=== PATIENT | male | born 1955 | race Caucasian/White ===

== ENCOUNTER 2016-09-20 14:27 | Emergency (ER) | payer MEDICARE, MEDICAID, OTHER ==
[2016-09-20] MEDS ORDERED: Sodium Chloride 0.9% 10 ML Syringe FLUSH PRN (14:57)
[2016-09-20] MEDS ORDERED: Sodium Chloride 0.9% 1,000 ML IV ONE ×2 (14:57→16:30)
--- NOTE | 2016-09-20 15:00 | EDM.PDOC ---
ED HPI GENERAL MEDICAL PROBLEM - General Chief Complaint: Neurological Problem Stated Complaint: [facility] Time Seen by Provider: 09/20/16 14:40 Source of Information: Reports: Patient History Limitations: Reports: No limitations - History of Present Illness INITIAL COMMENTS - FREE TEXT/NARRATIVE: 61-year-old male is brought in by the ambulance service for evaluation and treatment of confusion. Patient is denying pain at this time. He states he was seen by a provider yesterday for a dental abscess. Started on clindamycin. Patient niece is present in the ER. She states she called the ambulance for him as he has been more confused than normal. He denies any fevers, chills, nausea, vomiting, malaise, chest pain, shortness of breath or abdominal pain. Patient lives at home by himself. He is a diabetic on insulin. It Is unclear if he's been taking his medications. his niece reports on several occasions he has not taken his medications. Past medical history of AK and stroke. - Related Data Allergies Allergy/AdvReac Type Severity Reaction Status Date / Time No Known Allergies Allergy Verified 09/20/16 14:32 Home Meds: Home Meds Allopurinol [Zyloprim] 100 mg PO DAILY 09/16/13 [History] Aspirin [Sofie Chewable Aspirin] 81 mg PO DAILY 09/16/13 [History] FLUoxetine HCl [Fluoxetine] 20 mg PO DAILY 09/16/13 [History] Lisinopril 10 mg PO DAILY 09/16/13 [History] Melatonin/Pyridoxine HCl (B6) [Melatonin 10 mg Tablet] 5 mg PO DAILY PRN [History] Ranitidine HCl [Zantac 75] 75 mg PO BID 09/16/13 [History] Simvastatin [Zocor] 40 mg PO QPM 09/16/13 [History] Tamsulosin [Flomax] 0.4 mg PO DAILY 09/16/13 [History] Zolpidem [Ambien] 10 mg PO BEDTIME 09/16/13 [History] metFORMIN [Glucophage XR] 500 mg PO BIDM 09/16/13 [History] traZODone 200 mg PO QPM 09/16/13 [History] Furosemide [Lasix] 40 mg PO DAILY #30 tablet 09/22/13 [Rx] Acetaminophen [Tylenol Arthritis Pain] 1,300 mg PO BID 07/17/15 [History] Ibuprofen 600 mg PO Q12H PRN 07/17/15 [History] Multivit with Min #53/FA/K/Q10 [Dekas Plus Softgel] 1 tab PO DAILY 07/17/15 [ History] tiZANidine [Zanaflex] 4 mg PO TID PRN 07/17/15 [History] Divalproex Sodium [Depakote ER] 1,000 mg PO DAILY 07/18/15 [History] Rivaroxaban [Xarelto] 20 mg PO DAILY #30 tablet 07/21/15 [Rx] Clindamycin HCl 300 mg PO TID 09/20/16 [History] Divalproex Sodium [Depakote ER] 250 mg PO DAILY 09/20/16 [History] Fluticasone. 2 sprays NASBOTH DAILY 09/20/16 [History] Gabapentin [Neurontin] 200 mg PO BID 09/20/16 [History] Insulin Glarg,Human.Rec.Analog [LantUS Solostar] 35 units SUBCUT DAILY 09/20/16 [History] oxyCODONE HCl [Roxicodone] 5 mg PO Q6H 09/20/16 [History] traZODone HCl [Trazodone HCl] 100 mg PO DAILY 09/20/16 [History] Past Medical History Cardiovascular History: Reports: AK, Stents Other Cardiovascular History: one stent Respiratory History: Reports: Sleep apnea Gastrointestinal History: Reports: Chronic diarrhea Musculoskeletal History: Reports: Back pain, chronic, Other (see below) Other Musculoskeletal History: left back fusion Neurological History: Reports: CVA Psychiatric History: Reports: Depression Endocrine/Metabolic History: Reports: Diabetes, type II - Infectious Disease History Infectious Disease History: Reports: Chicken pox, Measles - Past Surgical History Respiratory Surgical History: Reports: None GI Surgical History: Reports: Hernia repair/other Dermatological Surgical History: Reports: None Social & Family History - Family History HEENT: Reports: None Cardiac: Reports: AK, Stent, Other (see below) Other Cardiac Family History: Unsure of exact family history GI: Reports: Cholelithiasis Musculoskeletal: Reports: Gout Neurological: Reports: Alzheimers disease Endocrine/Metabolic: Reports: Diabetes, type II Oncologic: Reports: Colon - Tobacco Use Smoking Status *Q: Never Smoker Second Hand Smoke Exposure: No - Alcohol Use Days Per Week of Alcohol Use: 0 - Recreational Drug Use Recreational Drug Use: No ED ROS GENERAL - Review of Systems Review Of Systems: See Below Constitutional: Denies: fever, malaise HEENT: Reports: Dental pain (left upper dental pain) Respiratory: Denies: Shortness of Breath Cardiovascular: Denies: Chest pain GI/Abdominal: Denies: Abdominal pain, Nausea, Vomiting Neurological: Reports: Confusion. Denies: Headache - Physical Exam Exam: See Below Exam Limited By: No limitations General Appearance: alert, WD/WN, no apparent distress, obese Throat/Mouth: Normal inspection, Normal lips, Normal voice, No airway compromise , Other (poor dentition with multiple carries; dental abscess to #13 and 14) Neck: normal inspection Respiratory/Chest: no respiratory distress, lungs clear, normal breath sounds Cardiovascular: normal peripheral pulses, regular rate, rhythm, no murmur Neuro Exam (Abbreviated): alert, confused (appropriately reports month; reported year as 2009 to staff electrical engineer; corrently identifies date of ) Extremities: pedal edema (2+ bilaterally) Psychiatric: normal affect, normal mood Skin Exam: Warm, Dry, Normal color EKG INTERPRETATION EKG Date: 09/20/16 Time: 15:05 Rhythm: NSR Rate (beats/min): 79 [place]: normal P-wave: present QRS: normal ST-T: normal QT: normal EKG Interpretation Comments: NSR at 79 bpm. No acute changes. Reviewd by myself and Dr. Garvey. Course - Vital Signs Last Recorded V/S: Last Vital Signs Temp 37.4 C 09/20/16 20:00 Pulse 92 09/20/16 20:00 Resp 16 09/20/16 20:00 BP 127/63 09/20/16 20:00 Pulse Ox 95 09/20/16 21:46 - Orders/Labs/Meds Orders: Active Orders 24 hr Category Date Time Status Blood Glucose Check, Bedside [RC] ONETIME Care 09/20/16 14:54 Active Cardiac Monitoring [RC] . DIRECTED Care 09/20/16 14:54 Active EKG Documentation Completion [RC] STAT Care 09/20/16 14:54 Active Cotto Catheter Insertion [Insert Urinary Catheter] [OM. Care 09/20/16 17:00 Ordered PC] Stat Oxygen Therapy [RC] ASDIRECTED Care 09/20/16 21:46 Active Peripheral IV Care [RC] . DIRECTED Care 09/20/16 14:57 Active Urinary Catheter Assessment [RC] ASDIRECTED Care 09/20/16 17:30 Active CULTURE BLOOD [BC] Stat Lab 09/20/16 15:20 Received CULTURE BLOOD [BC] Stat Lab 09/20/16 15:32 Received CULTURE URINE [RM] Stat Lab 09/20/16 17:00 Received Sodium Chloride 0.9% [Saline Flush] Med 09/20/16 14:57 Active 10 ml FLUSH ASDIRECTED PRN Blood Culture x2 Reflex Set [OM.PC] Stat Oth 09/20/16 14:54 Ordered Peripheral IV Insertion Adult [OM.PC] Routine Oth 09/20/16 14:57 Ordered Medication Orders Sodium Chloride (Saline Flush) 10 ml FLUSH ASDIRECTED PRN PRN Reason: Keep Vein Open Last Admin: 09/20/16 15:11 Dose: 10 ml Labs: Laboratory Tests 09/20/16 09/20/16 09/20/16 Range/Units 15:32 15:32 15:32 WBC 8.06 (4.23-9.07) K/mm3 RBC 4.24 L (4.63-6.08) M/mm3 Hgb 13.2 L (13.7-17.5) gm/L Hct 40.8 (40.1-51.0) % MCV 96.2 H (79.0-92.2) fl MCH 31.1 (25.7-32.2) pg MCHC 32.4 (32.2-35.5) g/dl RDW Std Deviation 46.3 H (35.1-43.9) fL Plt Count 214 (163-337) K/mm3 MPV 10.9 (9.4-12.3) fl Neutrophils % (Manual) 66 H (40-60) % Band Neutrophils % 0 (0-10) % Lymphocytes % (Manual) 28 (20-40) % Atypical Lymphs % 0 % Monocytes % (Manual) 4 (2-10) % Eosinophils % (Manual) 2 (0.8-7.0) % Basophils % (Manual) 0 L (0.2-1.2) Platelet Estimate Adequate RBC Morph Comment Normal Sodium 134 L (136-145) mEq/L Potassium 4.4 (3.5-5.1) mEq/L Chloride 95 L (98-107) mEq/L Carbon Dioxide 27 (21-32) mEq/L Anion Gap 16.4 H (5-15) BUN 54 H (7-18) mg/dL Creatinine 6.0 H (0.7-1.3) mg/dL Est Cr Clr Drug Dosing 12.09 mL/min Estimated GFR (MDRD) 10 (>60) mL/min BUN/Creatinine Ratio 9.0 L (14-18) Glucose 177 H (80-115) mg/dL Lactic Acid 2.5 H (0.4-2.0) mmol/L Calcium 8.7 (8.5-10.1) mg/dL Magnesium (1.8-2.4) mg/dl Total Bilirubin 0.2 (0.2-1.0) mg/dL AST 15 (15-37) U/L ALT 18 (16-63) U/L Alkaline Phosphatase 83 (46-116) U/L CK-MB (CK-2) 2.0 (0-3.6) ng/ml Troponin I < 0.017 (0.00-0.056) ng/mL C-Reactive Protein 11.5 H* (<1.0) mg/dL B-Natriuretic Peptide (0-100) pg/mL Total Protein 7.0 (6.4-8.2) g/dl Albumin 3.2 L (3.4-5.0) g/dl Globulin 3.8 gm/dL Albumin/Globulin Ratio 0.8 L (1-2) Urine Color (Yellow) Urine Appearance (Clear) Urine pH (5.0-8.0) Ur Specific [place] (1.005-1.030) Urine Protein (Negative) Urine Glucose (UA) (Negative) Urine Ketones (Negative) Urine Occult Blood (Negative) Urine Nitrite (Negative) Urine Bilirubin (Negative) Urine Urobilinogen (0.2-1.0) Ur Leukocyte Esterase (Negative) Urine RBC (0-5) /hpf Urine WBC (0-5) /hpf Ur Epithelial Cells Ur Squamous Epith Cells (0-5) /hpf Urine Bacteria (FEW) /hpf Urine Mucus (FEW) /hpf Urine Opiates Screen (NEGATIVE) Ur Buprenorphine Scrn (NEGATIVE) Ur Oxycodone Screen (NEGATIVE) Urine Methadone Screen (NEGATIVE) Ur Propoxyphene Screen (NEGATIVE) Ur Barbiturates Screen (NEGATIVE) Ur Tricyclics Screen (NEGATIVE) Ur Phencyclidine Scrn (NEGATIVE) Ur Amphetamine Screen (NEGATIVE) U Methamphetamines Scrn (NEGATIVE) U Benzodiazepines Scrn (NEGATIVE) U Cocaine Metab Screen (NEGATIVE) U Marijuana (THC) Screen (NEGATIVE) Ethyl Alcohol (0.00) gm% 09/20/16 09/20/16 09/20/16 Range/Units 15:32 15:32 17:00 WBC (4.23-9.07) K/mm3 RBC (4.63-6.08) M/mm3 Hgb (13.7-17.5) gm/L Hct (40.1-51.0) % MCV (79.0-92.2) fl MCH (25.7-32.2) pg MCHC (32.2-35.5) g/dl RDW Std Deviation (35.1-43.9) fL Plt Count (163-337) K/mm3 MPV (9.4-12.3) fl Neutrophils % (Manual) (40-60) % Band Neutrophils % (0-10) % Lymphocytes % (Manual) (20-40) % Atypical Lymphs % % Monocytes % (Manual) (2-10) % Eosinophils % (Manual) (0.8-7.0) % Basophils % (Manual) (0.2-1.2) Platelet Estimate RBC Morph Comment Sodium (136-145) mEq/L Potassium (3.5-5.1) mEq/L Chloride (98-107) mEq/L Carbon Dioxide (21-32) mEq/L Anion Gap (5-15) BUN (7-18) mg/dL Creatinine (0.7-1.3) mg/dL Est Cr Clr Drug Dosing mL/min Estimated GFR (MDRD) (>60) mL/min BUN/Creatinine Ratio (14-18) Glucose (80-115) mg/dL Lactic Acid (0.4-2.0) mmol/L Calcium (8.5-10.1) mg/dL Magnesium 2.1 (1.8-2.4) mg/dl Total Bilirubin (0.2-1.0) mg/dL AST (15-37) U/L ALT (16-63) U/L Alkaline Phosphatase (46-116) U/L CK-MB (CK-2) (0-3.6) ng/ml Troponin I (0.00-0.056) ng/mL C-Reactive Protein (<1.0) mg/dL B-Natriuretic Peptide < 15 (0-100) pg/mL Total Protein (6.4-8.2) g/dl Albumin (3.4-5.0) g/dl Globulin gm/dL Albumin/Globulin Ratio (1-2) Urine Color Yellow (Yellow) Urine Appearance Slt cloudy H (Clear) Urine pH 5.0 (5.0-8.0) Ur Specific [place] 1.025 (1.005-1.030) Urine Protein 1+ H (Negative) Urine Glucose (UA) Negative (Negative) Urine Ketones Negative (Negative) Urine Occult Blood Negative (Negative) Urine Nitrite Negative (Negative) Urine Bilirubin 1+ H (Negative) Urine Urobilinogen 0.2 (0.2-1.0) Ur Leukocyte Esterase Negative (Negative) Urine RBC 0-5 (0-5) /hpf Urine WBC 0-5 (0-5) /hpf Ur Epithelial Cells Not Reportable Ur Squamous Epith Cells 0-5 (0-5) /hpf Urine Bacteria Few (FEW) /hpf Urine Mucus Moderate H (FEW) /hpf Urine Opiates Screen (NEGATIVE) Ur Buprenorphine Scrn (NEGATIVE) Ur Oxycodone Screen (NEGATIVE) Urine Methadone Screen (NEGATIVE) Ur Propoxyphene Screen (NEGATIVE) Ur Barbiturates Screen (NEGATIVE) Ur Tricyclics Screen (NEGATIVE) Ur Phencyclidine Scrn (NEGATIVE) Ur Amphetamine Screen (NEGATIVE) U Methamphetamines Scrn (NEGATIVE) U Benzodiazepines Scrn (NEGATIVE) U Cocaine Metab Screen (NEGATIVE) U Marijuana (THC) Screen (NEGATIVE) Ethyl Alcohol 0.00 (0.00) gm% 09/20/16 Range/Units 17:00 WBC (4.23-9.07) K/mm3 RBC (4.63-6.08) M/mm3 Hgb (13.7-17.5) gm/L Hct (40.1-51.0) % MCV (79.0-92.2) fl MCH (25.7-32.2) pg MCHC (32.2-35.5) g/dl RDW Std Deviation (35.1-43.9) fL Plt Count (163-337) K/mm3 MPV (9.4-12.3) fl Neutrophils % (Manual) (40-60) % Band Neutrophils % (0-10) % Lymphocytes % (Manual) (20-40) % Atypical Lymphs % % Monocytes % (Manual) (2-10) % Eosinophils % (Manual) (0.8-7.0) % Basophils % (Manual) (0.2-1.2) Platelet Estimate RBC Morph Comment Sodium (136-145) mEq/L Potassium (3.5-5.1) mEq/L Chloride (98-107) mEq/L Carbon Dioxide (21-32) mEq/L Anion Gap (5-15) BUN (7-18) mg/dL Creatinine (0.7-1.3) mg/dL Est Cr Clr Drug Dosing mL/min Estimated GFR (MDRD) (>60) mL/min BUN/Creatinine Ratio (14-18) Glucose (80-115) mg/dL Lactic Acid (0.4-2.0) mmol/L Calcium (8.5-10.1) mg/dL Magnesium (1.8-2.4) mg/dl Total Bilirubin (0.2-1.0) mg/dL AST (15-37) U/L ALT (16-63) U/L Alkaline Phosphatase (46-116) U/L CK-MB (CK-2) (0-3.6) ng/ml Troponin I (0.00-0.056) ng/mL C-Reactive Protein (<1.0) mg/dL B-Natriuretic Peptide (0-100) pg/mL Total Protein (6.4-8.2) g/dl Albumin (3.4-5.0) g/dl Globulin gm/dL Albumin/Globulin Ratio (1-2) Urine Color (Yellow) Urine Appearance (Clear) Urine pH (5.0-8.0) Ur Specific [place] (1.005-1.030) Urine Protein (Negative) Urine Glucose (UA) (Negative) Urine Ketones (Negative) Urine Occult Blood (Negative) Urine Nitrite (Negative) Urine Bilirubin (Negative) Urine Urobilinogen (0.2-1.0) Ur Leukocyte Esterase (Negative) Urine RBC (0-5) /hpf Urine WBC (0-5) /hpf Ur Epithelial Cells Ur Squamous Epith Cells (0-5) /hpf Urine Bacteria (FEW) /hpf Urine Mucus (FEW) /hpf Urine Opiates Screen Negative (NEGATIVE) Ur Buprenorphine Scrn Negative (NEGATIVE) Ur Oxycodone Screen Presumptive positive H (NEGATIVE) Urine Methadone Screen Negative (NEGATIVE) Ur Propoxyphene Screen Negative (NEGATIVE) Ur Barbiturates Screen Negative (NEGATIVE) Ur Tricyclics Screen Presumptive positive H (NEGATIVE) Ur Phencyclidine Scrn Negative (NEGATIVE) Ur Amphetamine Screen Negative (NEGATIVE) U Methamphetamines Scrn Presumptive positive H (NEGATIVE) U Benzodiazepines Scrn Negative (NEGATIVE) U Cocaine Metab Screen Negative (NEGATIVE) U Marijuana (THC) Screen Negative (NEGATIVE) Ethyl Alcohol (0.00) gm% Meds: Medications Generic Name Dose Route Start Last Admin Trade Name Freq PRN Reason Stop Dose Admin Sodium Chloride 10 ml 09/20/16 14:57 09/20/16 15:11 Saline Flush FLUSH 10 ml ASDIRECTED PRN Administration Keep Vein Open Discontinued Medications Generic Name Dose Route Start Last Admin Trade Name Freq PRN Reason Stop Dose Admin Sodium Chloride 1,000 mls @ 999 mls/hr 09/20/16 14:57 09/20/16 15:08 Normal Saline IV 09/20/16 15:57 999 mls/hr ONETIME ONE Administration Sodium Chloride 1,000 mls @ 999 mls/hr 09/20/16 16:30 09/20/16 16:52 Normal Saline IV 09/20/16 17:30 999 mls/hr ONETIME ONE Administration Cefepime HCl 1 gm/ Premix 50 mls @ 100 mls/hr 09/20/16 17:19 09/20/16 17:34 IV 09/20/16 17:48 100 mls/hr ONETIME ONE Administration Oxycodone/Acetaminophen 1 tab 09/20/16 18:36 09/20/16 19:47 Percocet 325-5 Mg PO 09/20/16 18:37 1 tab ONETIME ONE Administration - Radiology Interpretation Free Text/Narrative:: chest [address] Cheng: 1. Nothing acute is identified on portable chest x-ray. Ct of the head impression per Dr. Cheng: 1. incidental findings. No acute intracranial abnormality is identified on noncontrast head Ct study. CT of the max. face without contrast impression per Dr. Cheng : 1. Numerous dental caries appear to be present. 2. Old nasal bone fracture. 3. Mild chronic- appearing sinusitis with both maxillary sinuses . 4. Nothing acute is appreciated on Ct study of the facial bones. 5. Small metallix foreign body within the anterior chin. - Re-Assessments/Exams Free Text/Narrative Re-Assessment/Exam: 09/20/16 17:01 Labs have returned. Blood cell count is 8.06, hgb is 13.2 platelets are 214. Sodium is 134, potassium is 4.4 chloride is 95. Anion gap is 16.4. Creatinine is elevated at 6.0. Review of chart and records from [place] showed that his creatinine normally around 1.0. Lactic acid is elevated 2.5. Glucose is 177. CK-MB is within normal limits at 2.0. Troponin is within normal limits at less than 0.0017. CRP is elevated at 11.5. BNP is negative at less than 15 I reviewed the lab results with the patient and his family. I feel that given his creatinine of 6.0 he is too ill to go home as he is in acute renal failure. Patient is currently in CT. CT of the max/face was obtained without contrast due to high creatinine. 09/20/16 19:[address] Alvarado, our hospitalist telephone exchange operator. She asked that I talk with [facility] regarding this patient. I spoke with Norbert Alston. Dr. Whelan accepted the patient. Plan is to send by ground ambulance. 09/20/16 21:27 Patient's drug screen has returned back positive with oxycodone, tricyclics and methamphetamine. He is negative for alcohol. Mag is normal at 2.1 After exhausting all options were unable to send the patient back on. We will send the patient by air. Departure - Departure Time of Disposition: 21:40 Disposition: DC/Tfer to Acute Hospital 02 Condition: serious Clinical Impression: Acute renal failure, Confusion - Discharge Information Forms: ED Department Discharge Additional Instructions: Patient is to go by air as no ground ambulances are available for transfer. Dr. Whelan at [facility] in [place] accepting.g - My Orders Last 24 Hours: My Active Orders 09/20/16 14:54 Blood Glucose Check, Bedside [] ONETIME Cardiac Monitoring [] . DIRECTED EKG Documentation Completion [RC] STAT Blood Culture x2 Reflex Set [OM.PC] Stat 09/20/16 14:57 Peripheral IV Care [RC] . DIRECTED Sodium Chloride 0.9% [Saline Flush] 10 ml FLUSH ASDIRECTED PRN Peripheral IV Insertion Adult [OM.PC] Routine 09/20/16 15:20 CULTURE BLOOD [BC] Stat 09/20/16 15:32 CULTURE BLOOD [BC] Stat 09/20/16 17:00 Cotto Catheter Insertion [Insert Urinary Catheter] [OM.PC] Stat CULTURE URINE [RM] Stat 09/20/16 17:30 Urinary Catheter Assessment [RC] ASDIRECTED 09/20/16 21:46 Oxygen Therapy [RC] ASDIRECTED - Assessment/Plan Last 24 Hours: My Active Orders 09/20/16 14:54 Blood Glucose Check, Bedside [RC] ONETIME Cardiac Monitoring [RC] . DIRECTED EKG Documentation Completion [RC] STAT Blood Culture x2 Reflex Set [OM.PC] Stat 09/20/16 14:57 Peripheral IV Care [RC] . DIRECTED Sodium Chloride 0.9% [Saline Flush] 10 ml FLUSH ASDIRECTED PRN Peripheral IV Insertion Adult [OM.PC] Routine 09/20/16 15:20 CULTURE BLOOD [BC] Stat 09/20/16 15:32 CULTURE BLOOD [BC] Stat 09/20/16 17:00 Cotto Catheter Insertion [Insert Urinary Catheter] [OM.PC] Stat CULTURE URINE [RM] Stat 09/20/16 17:30 Urinary Catheter Assessment [RC] ASDIRECTED 09/20/16 21:46 Oxygen Therapy [RC] ASDIRECTED
--- NOTE | 2016-09-20 15:45 | CR ---
Chest: Portable view of the chest was obtained. Comparison: Previous chest x-ray of 07/19/15. Heart size and mediastinum are within normal limits for portable technique. Lungs are clear with no acute infiltrates. Bony structures are grossly intact. Impression: 1. Nothing acute is identified on portable chest x-ray. Diagnostic code #1
--- NOTE | 2016-09-20 16:28 | CT ---
Head CT Technique: Multiple axial sections through the brain were obtained. Intravenous contrast was not utilized. Comparison: No previous intracranial imaging. Findings: Ventricles along with basal cisterns and sulci over the convexities are within normal limits for the patient's age. No abnormal parenchymal densities are seen. No evidence of intracranial hemorrhage. No midline shift or mass effect is seen. Bone window settings were reviewed which shows mild mucosal thickening within the maxillary sinuses worse on the left side which is likely chronic. Minimal mucosal thickening is noted within the right mastoid sinus which is likely incidental. No acute calvarial abnormality is seen. Old nasal bone fracture is incidentally is noted. Impression: 1. Incidental findings. No acute intracranial abnormality is identified on noncontrast head CT study. Diagnostic code #1
[2016-09-20] MEDS ORDERED: Cefepime 1 GM in Premix Bag 1 BAG IV ONE (17:19)
--- NOTE | 2016-09-20 17:30 | CT ---
CT facial bones Technique: Multiple axial sections through the facial bones were obtained. Reconstructed coronal and sagittal images were obtained. Findings: Small metallic foreign body projected within the chin measuring about 1.5 mm. There appears to be dental caries within the molars on the left side within the maxilla. Additional dental caries appears to be present within molars within the maxilla on the opposite side. Old nasal bone fracture is seen. Mucosal thickening is noted within the maxillary sinuses which is felt to be chronic. No acute fracture is seen within the facial bones. Right and left globes are symmetric. No soft tissue swelling is seen. Degenerative change is partially seen within the cervical spine. Impression: 1. Numerous dental caries appear to be present. 2. Old nasal bone fracture. 3. Mild chronic-appearing sinusitis within both maxillary sinuses. 4. Nothing acute is appreciated on CT study of the facial bones. 5. Small metallic foreign body within the anterior chin. Diagnostic code #3
[2016-09-20] MEDS ORDERED: Acetaminophen/oxyCODONE 325-5 MG Tab PO ONE (18:36)
[2016-09-20 22:20] VITALS: BP 127/63
== END 2016-09-20 22:00 ==
LOC: JD.ED 14:27
DX: N17.9 Acute kidney failure, unspecified (principal); R41.0 Disorientation, unspecified; G47.30 Sleep apnea, unspecified; F32.9 Major depressive disorder, single episode, unspecified; E11.9 Type 2 diabetes mellitus without complications; Z79.4 Long term (current) use of insulin; Z86.73 Personal history of transient ischemic attack (TIA), and cerebral infarction without residual deficits; Z98.890 Other specified postprocedural states; Z79.899 Other long term (current) drug therapy
CPT/HCPCS: 36415; 70450; 70486; 71010; 80053; 80306; 81001; 82553; 82962; 83605; 83735; 83880; 84484; 85025; 86140; 87040; 87086; 93005; 96361; 96365; 99285; A9270; G0480; J0692; J7040; J7050; P9612; 99284

== ENCOUNTER 2016-10-16 08:13 | Emergency (ER) | payer MEDICARE, MEDICAID ==
--- NOTE | 2016-10-16 08:51 | EDM.PDOC ---
ED HPI GENERAL MEDICAL PROBLEM - General Chief Complaint: Trauma Stated Complaint: RIB/BACK PAIN FROM Time Seen by Provider: 10/16/16 08:36 Source of Information: Reports: Patient History Limitations: Reports: No Limitations - History of Present Illness INITIAL COMMENTS - FREE TEXT/NARRATIVE: 61-year-old male presents the ED after slipping and falling in his kitchen floor this morning. He was fixing Washers in the bathroom but found note that the valve did not hold her work below the fossa. Therefore the water sprayed all over the floor and was running out in the hallway. He went to the bench towels from the kitchen about his way back to the bathroom slipped on the wet floor landing hard on his right mid and lateral back. Not the wind out of him. He hit the back of his head on the oven door but feels that no injury in his neck or head. Injury occurred about 6 clock this morning. Has pleuritic pain with deep inspiration. Localizes pain to his right lower posterolateral ribs. Denies pain in his lower back this any worse than it was prior. Onset: Today Onset Date: 10/16/16 Onset Time: 06:00 Duration: Hour(s): Location: Reports: Chest (Posterior lateral right chest) Quality: Reports: Ache, Sharp, Stabbing, Other (Pleuritic pain with deep inspiration.) Severity: Moderate Improves with: Reports: Rest Worsens with: Reports: Other, Movement Context: Reports: Trauma. Denies: Activity (Deep breathing or coughing.), Exercise, Lifting, Sick Contact Associated Symptoms: Reports: No Other Symptoms Treatments HOME DEPOT REP: Reports: Other (see below) Right Chest Pain Score (Numeric/FACES): 10 - Related Data Allergies Allergy/AdvReac Type Severity Reaction Status Date / Time No Known Allergies Allergy Verified 10/16/16 09:28 Home Meds: Home Meds Allopurinol [Zyloprim] 100 mg PO DAILY 09/16/13 [History] Aspirin [Sofie Chewable Aspirin] 81 mg PO DAILY 09/16/13 [History] FLUoxetine HCl [Fluoxetine] 20 mg PO DAILY 09/16/13 [History] Lisinopril 10 mg PO DAILY 09/16/13 [History] Melatonin/Pyridoxine HCl (B6) [Melatonin 10 mg Tablet] 5 mg PO DAILY PRN [History] Ranitidine HCl [Zantac 75] 75 mg PO BID 09/16/13 [History] Simvastatin [Zocor] 40 mg PO QPM 09/16/13 [History] Tamsulosin [Flomax] 0.4 mg PO DAILY 09/16/13 [History] Zolpidem [Ambien] 10 mg PO BEDTIME 09/16/13 [History] metFORMIN [Glucophage XR] 500 mg PO BIDM 09/16/13 [History] traZODone 200 mg PO QPM 09/16/13 [History] Furosemide [Lasix] 40 mg PO DAILY #30 tablet 09/22/13 [Rx] Acetaminophen [Tylenol Arthritis Pain] 1,300 mg PO BID 07/17/15 [History] Ibuprofen 600 mg PO Q12H PRN 07/17/15 [History] Multivit with Min #53/FA/K/Q10 [Dekas Plus Softgel] 1 tab PO DAILY 07/17/15 [ History] tiZANidine [Zanaflex] 4 mg PO TID PRN 07/17/15 [History] Divalproex Sodium [Depakote ER] 1,000 mg PO DAILY 07/18/15 [History] Rivaroxaban [Xarelto] 20 mg PO DAILY #30 tablet 07/21/15 [Rx] Clindamycin HCl 300 mg PO TID 09/20/16 [History] Divalproex Sodium [Depakote ER] 250 mg PO DAILY 09/20/16 [History] Fluticasone. 2 sprays NASBOTH DAILY 09/20/16 [History] Gabapentin [Neurontin] 200 mg PO BID 09/20/16 [History] Insulin Glarg,Human.Rec.Analog [LantUS Solostar] 35 units SUBCUT DAILY 09/20/16 [History] oxyCODONE HCl [Roxicodone] 5 mg PO Q6H 09/20/16 [History] traZODone HCl [Trazodone HCl] 100 mg PO DAILY 09/20/16 [History] oxyCODONE HCl/Acetaminophen [Percocet 5-325 mg Tablet] 1 - 2 each PO Q4H PRN # 30 tablet 10/16/16 [Rx] Past Medical History Cardiovascular History: Reports: [place], Stents Other Cardiovascular History: one stent Respiratory History: Reports: Sleep Apnea Gastrointestinal History: Reports: Chronic Diarrhea Musculoskeletal History: Reports: Back Pain, Chronic, Other (See Below) Other Musculoskeletal History: left back fusion Neurological History: Reports: CVA Psychiatric History: Reports: Depression Endocrine/Metabolic History: Reports: Diabetes, Type II - Infectious Disease History Infectious Disease History: Reports: Chicken Pox, Measles - Past Surgical History GI Surgical History: Reports: Hernia Repair/Other Neurological Surgical History: Reports: Spinal Fusion Musculoskeletal Surgical History: Reports: Other (See Below) Social & Family History - Family History HEENT: Reports: None Cardiac: Reports: [place], Stent, Other (See Below) Other Cardiac Family History: Unsure of exact family history GI: Reports: Cholelithiasis Musculoskeletal: Reports: Gout Neurological: Reports: Alzheimers Disease Endocrine/Metabolic: Reports: Diabetes, type II Oncologic: Reports: Colon - Tobacco Use Smoking Status *Q: Never Smoker Second Hand Smoke Exposure: No - Caffeine Use Caffeine Use: Reports: Soda - Alcohol Use Days Per Week of Alcohol Use: 0 - Recreational Drug Use Recreational Drug Use: No - Living Situation & Occupation Living situation: Reports: Single Occupation: Disabled Review of Systems - Review of Systems Review Of Systems: See Below Constitutional: Reports: No Symptoms Eyes: Reports: No Symptoms Ears: Reports: No Symptoms Nose: Reports: No Symptoms Mouth/Throat: Reports: No Symptoms Respiratory: Denies: Shortness of Breath, Wheezing, Pleuritic Chest Pain Cardiovascular: Reports: No Symptoms GI/Abdominal: Reports: No Symptoms. Denies: Abdominal Pain, Bloody Stool Musculoskeletal: Reports: Back Pain (Chronic low back pain) Skin: Reports: No Symptoms Neurological: Reports: No Symptoms Psychiatric: Reports: No Symptoms ED EXAM, GENERAL - Physical Exam Exam: See Below Exam Limited By: No Limitations General Appearance: Alert, WD/WN, Mild Distress Throat/Mouth: Normal Inspection, Normal Lips, Normal Teeth, Normal Oropharynx, Other Head: Atraumatic, Normocephalic (Did not bite his tongue.), Other Neck: Normal Inspection, Supple (A palpable hematomas or pain and occipital scalp.), Non-Tender, Full Range of Motion. No: Lymphadenopathy (L), Lymphadenopathy (R) Respiratory/Chest: Lungs Clear, Chest Non-Tender, Respiratory Distress (Mild tachypnea at rest. Splinting respirations on the), Decreased Breath Sounds, Splinting ( right side. right ), Other (Pain localized to the posterior lateral right chest from ribs 9-12 particularly tender palpation. No subcutaneous emphysema detected. Pain is adjacent to the transverse processes as well he may have fractured in this area as well.) Cardiovascular: Normal Peripheral Pulses, Regular Rate, Rhythm, No Gallop, No Murmur GI/Abdominal: Normal Bowel Sounds, Soft, Non-Tender, No Organomegaly, Other ( Has a fairly large 2.5 cm umbilical hernia which is asymptomatic and easily reducible. The abdomen is significantly obese.) Extremities: Normal Inspection, Normal Range of Motion, Non-Tender, No Pedal Edema, Normal Capillary Refill Neurological: Alert, Oriented, CN II-XII Intact, Normal Cognition Psychiatric: Normal Affect, Normal Mood Skin Exam: Warm, Dry, Intact, Normal Color, No Rash Course - Vital Signs Last Recorded V/S: Last Vital Signs Temp 36.4 C 10/16/16 08:45 Pulse 62 10/16/16 08:45 Resp 16 10/16/16 08:45 BP 123/67 10/16/16 08:45 Pulse Ox 90 L 10/16/16 08:45 - Radiology Interpretation Free Text/Narrative:: 61-year-old male presents to the ED with acute injury to his right posterior lateral chest wall involving ribs 9-12 in the right side. Slipped and fell on wet floor this morning in his home landing hard on his back injuring his ribs and thoracic spine area. Previous spinal surgery x2 in the lumbar spine with a laminectomy and discectomy initially which failed to control his pain and subsequent fusion of L4-5 and 6 with again and we'll relief of pain. He took an oxycodone tablet at home this morning the pain is getting worse over the last 2 hours. Hurts to take any deep breaths. Plan CT chest and CT thoracic spine to be done. - Re-Assessments/Exams Free Text/Narrative Re-Assessment/Exam: 10/16/16 09:41 CT of the thoracic spine reveals advanced degenerative changes at multiple levels in the mid and lower thoracic spine with and tear lipping quite prominently. There is associated mild degenerative disc disease. There is neural foraminal stenosis being seen within the lower cervical spine on both sides neural foramina within the thoracic spine are preserved no fracture or subluxation is identified. CT chest reveals mild clubbing trigger configuration with slight tortuosity of the thoracic aorta no fracture is identified. It will therefore be discharged home. He is a pain contract for his chronic low back pain and uses oxycodone 5-25 mg tablets. I will write a prescription for 30 further tablets that he can use over the next 7-10 days until his ribs and back to settle down. His mother is here to drive him home. Departure - Departure Time of Disposition: 09:42 Disposition: Home, Self-Care 01 Condition: fair Clinical Impression: Fall as cause of accidental injury at home as place of occurrence Qualifiers: Encounter type: initial encounter Qualified Code(s): W19.XXXA - Unspecified fall, initial encounter Contusion of rib on right side Qualifiers: Encounter type: initial encounter Qualified Code(s): S20.211A - Contusion of right front wall of thorax, initial encounter - Discharge Information Prescriptions: oxyCODONE HCl/Acetaminophen [Percocet 5-325 mg Tablet] 1 - 2 each PO Q4H PRN # 30 tablet PRN Reason: pain relief. Referrals: Abisai Lloyd MD [Primary Care Provider] - Additional Instructions: Evaluation collision today in regards to fall at home earlier this morning with blunt trauma to the right posterior lateral ribs and thoracic spine area. Chronic problems with low back pain secondary to degenerative disc disease. Examination shows point tenderness along the transverse processes of thoracic 9 1011 and 12 as well as associated rib injuries in this area. No bruising or swelling was evident on exam. CT of the ribs and chest and thoracic spine carried out revealed advanced degenerative changes in the thoracic spine with minimal disc disease. No evidence of nerve root entrapment. Interestingly do have some entrapment of the nerves exiting the cervical or neck bones. No fractures or dislocations are identified. Ribs were within normal limits. Therefore you have contused her badly bruised her ribs and her back from the fall. Expect pain to be a little worse over the next 24-48 hours and then gradually improve over the next 7-10 days. May use oxycodone 5-325 mg tablets -- one to 2 tablets every 4-6 hours as needed for pain relief. Followup with personal physician if any further problems occur.
--- NOTE | 2016-10-16 09:37 | CT ---
CT thoracic spine Technique: Multiple axial sections through the thoracic spine were obtained. Findings: Mild disc space narrowing is seen diffusely within the cervical spine. Diffuse endplate osteophytes are also seen throughout the spine. Mild degenerative apophyseal change is seen within the lower thoracic spine. There is neural foraminal stenosis being seen within the lower cervical spine on both sides. Neural foramina within the thoracic spine are preserved. No fracture or subluxation is seen. Impression: 1. Degenerative change as noted above. No acute fracture or abnormal subluxation is appreciated. Diagnostic code #2
--- NOTE | 2016-10-16 09:37 | CT ---
CT chest Technique: Multiple axial sections were obtained from above the lung apices inferiorly through the lung bases. Intravenous contrast was not utilized. Comparison: No prior chest CT, chest x-ray 09/20/16 is available. Findings: Mild atherosclerotic calcification is seen within the thoracic aorta. No aneurysm is identified. Moderate coronary artery calcification is seen. Small mediastinal lymph nodes are seen which appear within normal limits. No pericardial thickening is seen. Small portion of the visualized upper abdominal structures shows a small cortical cyst off the left kidney. No axillary adenopathy is seen. Small nodule is noted within the anterior right upper lobe measuring about 2.4 mm in size. Lungs otherwise are clear. Bone window settings were reviewed which shows no discrete rib fracture. Diffuse degenerative change is seen within the spine. No discrete fracture is identified within the thoracic spine. Reconstructed sagittal images of the sternum appear within normal limits. Impression: 1. Small nodule within the anterior right upper lung. If patient is a smoker, recommend follow-up noncontrast chest CT in one year. If patient is not a smoker, this can be ignored. 2. Other incidental findings. Nothing acute is appreciated on noncontrast chest CT. Diagnostic code #3
[2016-10-16 10:40] VITALS: BP 118/58
== END 2016-10-16 10:05 | disposition home or self-care (01) ==
LOC: JD.ED 08:13
DX: S20.211A Contusion of right front wall of thorax, initial encounter (principal); F32.9 Major depressive disorder, single episode, unspecified; E11.9 Type 2 diabetes mellitus without complications; Z86.73 Personal history of transient ischemic attack (TIA), and cerebral infarction without residual deficits; Z98.1 Arthrodesis status; I25.2 Old myocardial infarction; Z98.890 Other specified postprocedural states; Z79.82 Long term (current) use of aspirin; Z79.4 Long term (current) use of insulin; Z79.899 Other long term (current) drug therapy; W01.0XXA Fall on same level from slipping, tripping and stumbling without subsequent striking against object, initial encounter
CPT/HCPCS: 71250; 71250-26; 72128; 72128-26; 99284; 99284-25

== ENCOUNTER 2016-12-18 11:52 | Inpatient (IN) | payer MEDICARE, MEDICAID ==
[2016-12-18] MEDS ORDERED: Sodium Chloride 0.9% 10 ML Syringe FLUSH PRN (12:45)
--- NOTE | 2016-12-18 12:56 | EDM.PDOC ---
ED HPI GENERAL MEDICAL PROBLEM - General Chief Complaint: General Stated Complaint: ACCIDENTAL DRUG OVERDOSE Time Seen by Provider: 12/18/16 12:17 Source of Information: Reports: Patient History Limitations: Reports: No Limitations - History of Present Illness INITIAL COMMENTS - FREE TEXT/NARRATIVE: Patient is a 61-year-old male who presents ED with family with concerns of taking medications inappropriately. Sr. and brother are present. Patient has a history of stroke and [place] and is on disability. He lives at home by himself. Sr. states this morning she checked up on him and found that he had taking all his medications for Sunday, Sunday, and the morning meds for Sunday. Patient is quite drowsy and mildly confused. It is unsure what medications he has taken. He is on multiple sedating medications for chronic pain. They report the patient did fall with questionable loss of consciousness. He complains of left- sided chest and left upper quadrant abdominal pain. He has superficial abrasion to his left knee. Patient is also a diabetic. Blood sugar approximate one-hour prior to admission to the ED was 148. Family reports patient has had multiple episodes as such with taking medications inappropriately. Per family although the patient appears sleepy his mentation is appropriate. He is on xarelto for atrial fibrillation. PMH and current medications reviewed. - Related Data Allergies Allergy/AdvReac Type Severity Reaction Status Date / Time No Known Allergies Allergy Verified 12/18/16 12:11 Home Meds: Home Meds Allopurinol [Zyloprim] 100 mg PO DAILY 09/16/13 [History] Aspirin [Sofie Chewable Aspirin] 81 mg PO DAILY 09/16/13 [History] FLUoxetine HCl [Fluoxetine] 20 mg PO DAILY 09/16/13 [History] Ranitidine HCl [Zantac 75] 75 mg PO BID 09/16/13 [History] Simvastatin [Zocor] 40 mg PO QPM 09/16/13 [History] Tamsulosin [Flomax] 0.4 mg PO DAILY 09/16/13 [History] Zolpidem [Ambien] 5 mg PO BEDTIME PRN 09/16/13 [History] Acetaminophen [Tylenol Arthritis Pain] 1,300 mg PO BID 07/17/15 [History] Ibuprofen 600 mg PO Q12H PRN 07/17/15 [History] Multivit with Min #53/FA/K/Q10 [Dekas Plus Softgel] 1 tab PO DAILY 07/17/15 [ History] Rivaroxaban [Xarelto] 20 mg PO DAILY #30 tablet 07/21/15 [Rx] Divalproex Sodium [Depakote ER] 1,000 mg PO DAILY 09/20/16 [History] Fluticasone. 2 sprays NASBOTH DAILY 09/20/16 [History] Gabapentin [Neurontin] 200 mg PO BID 09/20/16 [History] Insulin Glarg,Human.Rec.Analog [LantUS Solostar] 35 units SUBCUT DAILY 09/20/16 [History] oxyCODONE HCl [Roxicodone] 5 mg PO Q6H 09/20/16 [History] Cyclobenzaprine [Flexeril] 10 mg PO BID PRN 12/18/16 [History] Melatonin 5 mg PO BEDTIME PRN 12/18/16 [History] Metoprolol Tartrate [Lopressor] 100 mg PO BID 12/18/16 [History] SUMAtriptan [Imitrex] 50 mg PO BID PRN 12/18/16 [History] Past Medical History Cardiovascular History: Reports: [place], Stents Other Cardiovascular History: one stent Respiratory History: Reports: Sleep Apnea Gastrointestinal History: Reports: Chronic Diarrhea Musculoskeletal History: Reports: Back Pain, Chronic, Other (See Below) Other Musculoskeletal History: left back fusion Neurological History: Reports: CVA Psychiatric History: Reports: Depression Endocrine/Metabolic History: Reports: Diabetes, Type II - Infectious Disease History Infectious Disease History: Reports: Chicken Pox, Measles - Past Surgical History GI Surgical History: Reports: Hernia Repair/Other Neurological Surgical History: Reports: Spinal Fusion Musculoskeletal Surgical History: Reports: Other (See Below) Dermatological Surgical History: Reports: None Social & Family History - Family History HEENT: Reports: None Cardiac: Reports: [place], Stent, Other (See Below) Other Cardiac Family History: Unsure of exact family history GI: Reports: Cholelithiasis Musculoskeletal: Reports: Gout Neurological: Reports: Alzheimers Disease Endocrine/Metabolic: Reports: Diabetes, type II Oncologic: Reports: Colon - Tobacco Use Smoking Status *Q: Never Smoker Second Hand Smoke Exposure: No - Caffeine Use Caffeine Use: Reports: Soda - Alcohol Use Days Per Week of Alcohol Use: 0 - Recreational Drug Use Recreational Drug Use: No - Living Situation & Occupation Living situation: Reports: Single Occupation: Disabled ED ROS GENERAL - Review of Systems Review Of Systems: See Below Constitutional: Reports: Malaise, Weakness, Fatigue. Denies: Fever, Chills, Decreased Appetite, Weight Loss Cardiovascular: Reports: Chest Pain (left lower lateral chest border). Denies: Dyspnea on Exertion, Lightheadedness, Palpitations, Syncope GI/Abdominal: Reports: Abdominal Pain (left upper quadrant). Denies: Black Stool, Bloody Stool, Constipation, Diarrhea, Decreased Appetite, Difficulty Swallowing, Distension, Flatus, Hematemesis, Hematochezia, Nausea, Vomiting : Denies: Dysuria Musculoskeletal: Reports: Back Pain (lower back pain chronic no worsening symptoms), Other (left forearm pain). Denies: Neck Pain, Shoulder Pain Skin: Reports: Other (superficial abrasion to the left knee) Neurological: Denies: Confusion, Dizziness, Headache, Numbness, Tingling, Trouble Speaking, Weakness ED EXAM, GENERAL - Physical Exam Exam: See Below Exam Limited By: No Limitations General Appearance: Alert, WD/WN, Other (mildly sedated) Eye Exam: Bilateral Eye: EOMI, Nystagmus (none found), PERRL Ears: Normal External Exam, Hearing Grossly Normal Nose: Normal Inspection Throat/Mouth: Normal Inspection, Normal Oropharynx, Normal Voice, No Airway Compromise Head: Atraumatic, Normocephalic Neck: Normal Inspection, Supple, Non-Tender, Full Range of Motion. No: Lymphadenopathy (L), Lymphadenopathy (R), Tender Lateral, Tender Midline Respiratory/Chest: No Respiratory Distress, Lungs Clear, Normal Breath Sounds, No Accessory Muscle Use, Other (pain with palpation the left lower chest. No bony abnormalities, bruising, swelling, or wounds present.) Cardiovascular: Normal Peripheral Pulses, Regular Rate, Rhythm, No Murmur ( obvious) Peripheral Pulses: 2+: Radial (L), Radial (R), Posterior Tibial (L), Posterior Tibial (R) GI/Abdominal: Normal Bowel Sounds, Soft, No Organomegaly, No Distention, Tender (left upper quadrant) Back Exam: Normal Inspection, Full Range of Motion, Vertebral Tenderness ( lumbar spine, chronic, no new changes) Extremities: Normal Inspection, Normal Range of Motion, Normal Capillary Refill , Pedal Edema (trace bilaterally lower extremities), Other (pain to the left forearm with palpation, no decreased range of motion noted, no swelling, bony abnormalities, sensory/motor deficits distally) Neurological: Alert, Oriented, Normal Cognition, No Motor/Sensory Deficits, Memory Loss Recent Events, Other (sedated and mildly confused) Psychiatric: Normal Affect, Depressed Mood Skin Exam: Warm, Dry, Intact, Normal Color Course - Vital Signs Last Recorded V/S: Last Vital Signs Temp 99.1 F 12/19/16 08:34 Pulse 96 12/19/16 09:56 Resp 16 12/19/16 08:34 BP 141/83 H 12/19/16 09:56 Pulse Ox 90 L 12/19/16 08:34 - Orders/Labs/Meds Orders: Active Orders 24 hr Category Date Time Status EKG 12 Lead [EKG Documentation Completion] [RC] STAT Care 12/18/16 12:59 Active Consult to Financial Assistant [CONS] Routine Cons 12/18/16 14:23 Active Sodium Chloride 0.9% [Saline Flush] Med 12/18/16 12:45 Active 10 ml FLUSH ASDIRECTED PRN Peripheral IV Insertion Adult [OM.PC] Stat Oth 12/18/16 12:45 Ordered Medication Orders Acetaminophen (Tylenol) 650 mg PO Q4H PRN PRN Reason: Pain (Mild 1-3)/fever Hydrocodone Bitart/Acetaminophen ([place] 325-5 Mg) 1 tab PO Q4H PRN PRN Reason: Pain (moderate 4-6) Last Admin: 12/19/16 01:49 Dose: 1 tab Albuterol/Ipratropium (Duoneb 3.0-0.5 Mg/3 Ml) 3 ml NEB Q4H PRN PRN Reason: Shortness Of Breath/wheezing Bisacodyl (Dulcolax) 5 mg PO DAILY PRN PRN Reason: Constipation Divalproex Sodium (Depakote) 1,000 mg PO DAILY [facility] Last Admin: 12/19/16 09:49 Dose: 1,000 mg Divalproex Sodium (Divalproex Sodium) 250 mg PO DAILY [facility] Last Admin: 12/19/16 09:48 Dose: 250 mg Docusate Sodium (Colace) 100 mg PO BID PRN PRN Reason: Constipation Famotidine (Pepcid) 20 mg PO BEDTIME [facility] Flunisolide (Nasalide Nasal [place]) 0 ml NASBOTH Q12H [facility] Fluoxetine HCl (Prozac) 20 mg PO DAILY [facility] Last Admin: 12/19/16 09:48 Dose: 20 mg Gabapentin (Neurontin) 200 mg PO BID [facility] Last Admin: 12/19/16 09:49 Dose: 200 mg Hydromorphone HCl (Dilaudid) 0.25 mg IVPUSH Q2H PRN PRN Reason: Pain (severe 7-10) Promethazine HCl 12.5 mg/ (Sodium Chloride) 50.5 mls @ 100 mls/hr IV Q6H PRN PRN Reason: Nausea/Vomiting Insulin Detemir (Levemir) 0 unit SUBCUT BID [facility] Lorazepam (Ativan) 1 mg IV Q6H PRN PRN Reason: Anxiety Stop: 12/21/16 23:59 Metoprolol Tartrate (Lopressor) 100 mg PO BID [facility] Last Admin: 12/19/16 09:56 Dose: 100 mg Multivitamins (Thera) 1 each PO DAILY [facility] Last Admin: 12/19/16 09:49 Dose: 1 each Ondansetron HCl (Zofran) 4 mg IV Q6H PRN PRN Reason: Nausea/Vomiting Oxycodone HCl (Oxycodone) 5 mg PO Q6H [facility] Last Admin: 12/19/16 09:46 Dose: 5 mg Admin: 12/19/16 03:51 Dose: 5 mg Admin: 12/18/16 22:14 Dose: 5 mg Melatonin [Melatonin (] 5 Mg) 0 each PO BEDTIME PRN PRN Reason: Insomnia Polyethylene Glycol (Miralax) 17 gm PO DAILY PRN PRN Reason: Constipation Senna/Docusate Sodium (Senna Plus) 1 tab PO BID PRN PRN Reason: Constipation Simvastatin (Zocor) 40 mg PO QPM [facility] Sodium Chloride (Saline Flush) 10 ml FLUSH ASDIRECTED PRN PRN Reason: Keep Vein Open Last Admin: 12/18/16 13:39 Dose: 10 ml Sumatriptan Succinate (Imitrex) 50 mg PO BID PRN PRN Reason: Headache Tamsulosin HCl (Flomax) 0.4 mg PO DAILY [facility] Last Admin: 12/19/16 09:48 Dose: 0.4 mg Temazepam (Restoril) 15 mg PO BEDTIME PRN PRN Reason: Sleep Zolpidem Tartrate (Ambien) 5 mg PO BEDTIME PRN PRN Reason: Insomnia Labs: Laboratory Tests 12/18/16 12/18/16 12/18/16 Range/Units 12:22 12:55 12:55 WBC (4.23-9.07) K/mm3 RBC (4.63-6.08) M/mm3 Hgb (13.7-17.5) gm/L Hct (40.1-51.0) % MCV (79.0-92.2) fl MCH (25.7-32.2) pg MCHC (32.2-35.5) g/dl RDW Std Deviation (35.1-43.9) fL Plt Count (163-337) K/mm3 MPV (9.4-12.3) fl Neut % (Auto) (34.0-67.9) % Lymph % (Auto) (21.8-53.1) % [place] % (Auto) (5.3-12.2) % Eos % (Auto) (0.8-7.0) Baso % (Auto) (0.1-1.2) % Neut # (Auto) (1.78-5.38) K/mm3 Lymph # (Auto) (1.32-3.57) K/mm3 [place] # (Auto) (0.30-0.82) K/mm3 Eos # (Auto) (0.04-0.54) K/mm3 Baso # (Auto) (0.01-0.08) K/mm3 PT (8.0-13.0) SECONDS INR APTT (22-36) SECONDS Sodium (136-145) mEq/L Potassium (3.5-5.1) mEq/L Chloride (98-107) mEq/L Carbon Dioxide (21-32) mEq/L Anion Gap (5-15) BUN (7-18) mg/dL Creatinine (0.7-1.3) mg/dL Est Cr Clr Drug Dosing mL/min Estimated GFR (MDRD) (>60) mL/min BUN/Creatinine Ratio (14-18) Glucose (80-115) mg/dL POC Glucose 148 H (80-115) mg/dL Calcium (8.5-10.1) mg/dL Total Bilirubin (0.2-1.0) mg/dL AST (15-37) U/L ALT (16-63) U/L Alkaline Phosphatase (46-116) U/L Troponin I (0.00-0.056) ng/mL Total Protein (6.4-8.2) g/dl Albumin (3.4-5.0) g/dl Globulin gm/dL Albumin/Globulin Ratio (1-2) Lipase (73-393) U/L TSH 3rd Generation (0.358-3.74) uIU/mL Urine Color Yellow (Yellow) Urine Appearance Clear (Clear) Urine pH 6.0 (5.0-8.0) Ur Specific [place] 1.015 (1.005-1.030) Urine Protein Negative (Negative) Urine Glucose (UA) Negative (Negative) Urine Ketones Negative (Negative) Urine Occult Blood Negative (Negative) Urine Nitrite Negative (Negative) Urine Bilirubin Negative (Negative) Urine Urobilinogen 0.2 (0.2-1.0) Ur Leukocyte Esterase Negative (Negative) Urine RBC Not seen (0-5) /hpf Urine WBC 0-5 (0-5) /hpf Ur Epithelial Cells 0-5 (0-5) /hpf Urine Bacteria Not seen (FEW) /hpf Urine Mucus Not seen (FEW) /hpf Urine Opiates Screen Negative (NEGATIVE) Ur Buprenorphine Scrn Negative (NEGATIVE) Ur Oxycodone Screen Negative (NEGATIVE) Urine Methadone Screen Negative (NEGATIVE) Ur Propoxyphene Screen Negative (NEGATIVE) Ur Barbiturates Screen Negative (NEGATIVE) Ur Tricyclics Screen Negative (NEGATIVE) Ur Phencyclidine Scrn Negative (NEGATIVE) Ur Amphetamine Screen Negative (NEGATIVE) U Methamphetamines Scrn Negative (NEGATIVE) U Benzodiazepines Scrn Negative (NEGATIVE) U Cocaine Metab Screen Negative (NEGATIVE) U Marijuana (THC) Screen Negative (NEGATIVE) 12/18/16 12/18/16 12/18/16 Range/Units 13:35 13:35 13:35 WBC 7.18 (4.23-9.07) K/mm3 RBC 4.63 (4.63-6.08) M/mm3 Hgb 14.4 (13.7-17.5) gm/L Hct 44.3 (40.1-51.0) % MCV 95.7 H (79.0-92.2) fl MCH 31.1 (25.7-32.2) pg MCHC 32.5 (32.2-35.5) g/dl RDW Std Deviation 45.0 H (35.1-43.9) fL Plt Count 190 (163-337) K/mm3 MPV 11.1 (9.4-12.3) fl Neut % (Auto) 65.5 (34.0-67.9) % Lymph % (Auto) 22.8 (21.8-53.1) % [place] % (Auto) 7.8 (5.3-12.2) % Eos % (Auto) 3.2 (0.8-7.0) Baso % (Auto) 0.3 (0.1-1.2) % Neut # (Auto) 4.70 (1.78-5.38) K/mm3 Lymph # (Auto) 1.64 (1.32-3.57) K/mm3 [place] # (Auto) 0.56 (0.30-0.82) K/mm3 Eos # (Auto) 0.23 (0.04-0.54) K/mm3 Baso # (Auto) 0.02 (0.01-0.08) K/mm3 PT 13.2 H (8.0-13.0) SECONDS INR 1.20 APTT (22-36) SECONDS Sodium 140 (136-145) mEq/L Potassium 4.8 (3.5-5.1) mEq/L Chloride 97 L (98-107) mEq/L Carbon Dioxide 37 H (21-32) mEq/L Anion Gap 10.8 (5-15) BUN 18 (7-18) mg/dL Creatinine 1.3 (0.7-1.3) mg/dL Est Cr Clr Drug Dosing 59.67 mL/min Estimated GFR (MDRD) 56 (>60) mL/min BUN/Creatinine Ratio 13.8 L (14-18) Glucose 139 H (80-115) mg/dL POC Glucose (80-115) mg/dL Calcium 9.8 (8.5-10.1) mg/dL Total Bilirubin 0.2 (0.2-1.0) mg/dL AST 24 (15-37) U/L ALT 28 (16-63) U/L Alkaline Phosphatase 84 (46-116) U/L Troponin I < 0.017 (0.00-0.056) ng/mL Total Protein 7.3 (6.4-8.2) g/dl Albumin 3.7 (3.4-5.0) g/dl Globulin 3.6 gm/dL Albumin/Globulin Ratio 1.0 (1-2) Lipase 96 (73-393) U/L TSH 3rd Generation 2.454 (0.358-3.74) uIU/mL Urine Color (Yellow) Urine Appearance (Clear) Urine pH (5.0-8.0) Ur Specific [place] (1.005-1.030) Urine Protein (Negative) Urine Glucose (UA) (Negative) Urine Ketones (Negative) Urine Occult Blood (Negative) Urine Nitrite (Negative) Urine Bilirubin (Negative) Urine Urobilinogen (0.2-1.0) Ur Leukocyte Esterase (Negative) Urine RBC (0-5) /hpf Urine WBC (0-5) /hpf Ur Epithelial Cells (0-5) /hpf Urine Bacteria (FEW) /hpf Urine Mucus (FEW) /hpf Urine Opiates Screen (NEGATIVE) Ur Buprenorphine Scrn (NEGATIVE) Ur Oxycodone Screen (NEGATIVE) Urine Methadone Screen (NEGATIVE) Ur Propoxyphene Screen (NEGATIVE) Ur Barbiturates Screen (NEGATIVE) Ur Tricyclics Screen (NEGATIVE) Ur Phencyclidine Scrn (NEGATIVE) Ur Amphetamine Screen (NEGATIVE) U Methamphetamines Scrn (NEGATIVE) U Benzodiazepines Scrn (NEGATIVE) U Cocaine Metab Screen (NEGATIVE) U Marijuana (THC) Screen (NEGATIVE) 12/18/16 Range/Units 13:35 WBC (4.23-9.07) K/mm3 RBC (4.63-6.08) M/mm3 Hgb (13.7-17.5) gm/L Hct (40.1-51.0) % MCV (79.0-92.2) fl MCH (25.7-32.2) pg MCHC (32.2-35.5) g/dl RDW Std Deviation (35.1-43.9) fL Plt Count (163-337) K/mm3 MPV (9.4-12.3) fl Neut % (Auto) (34.0-67.9) % Lymph % (Auto) (21.8-53.1) % [place] % (Auto) (5.3-12.2) % Eos % (Auto) (0.8-7.0) Baso % (Auto) (0.1-1.2) % Neut # (Auto) (1.78-5.38) K/mm3 Lymph # (Auto) (1.32-3.57) K/mm3 [place] # (Auto) (0.30-0.82) K/mm3 Eos # (Auto) (0.04-0.54) K/mm3 Baso # (Auto) (0.01-0.08) K/mm3 PT (8.0-13.0) SECONDS INR APTT 34 (22-36) SECONDS Sodium (136-145) mEq/L Potassium (3.5-5.1) mEq/L Chloride (98-107) mEq/L Carbon Dioxide (21-32) mEq/L Anion Gap (5-15) BUN (7-18) mg/dL Creatinine (0.7-1.3) mg/dL Est Cr Clr Drug Dosing mL/min Estimated GFR (MDRD) (>60) mL/min BUN/Creatinine Ratio (14-18) Glucose (80-115) mg/dL POC Glucose (80-115) mg/dL Calcium (8.5-10.1) mg/dL Total Bilirubin (0.2-1.0) mg/dL AST (15-37) U/L ALT (16-63) U/L Alkaline Phosphatase (46-116) U/L Troponin I (0.00-0.056) ng/mL Total Protein (6.4-8.2) g/dl Albumin (3.4-5.0) g/dl Globulin gm/dL Albumin/Globulin Ratio (1-2) Lipase (73-393) U/L TSH 3rd Generation (0.358-3.74) uIU/mL Urine Color (Yellow) Urine Appearance (Clear) Urine pH (5.0-8.0) Ur Specific [place] (1.005-1.030) Urine Protein (Negative) Urine Glucose (UA) (Negative) Urine Ketones (Negative) Urine Occult Blood (Negative) Urine Nitrite (Negative) Urine Bilirubin (Negative) Urine Urobilinogen (0.2-1.0) Ur Leukocyte Esterase (Negative) Urine RBC (0-5) /hpf Urine WBC (0-5) /hpf Ur Epithelial Cells (0-5) /hpf Urine Bacteria (FEW) /hpf Urine Mucus (FEW) /hpf Urine Opiates Screen (NEGATIVE) Ur Buprenorphine Scrn (NEGATIVE) Ur Oxycodone Screen (NEGATIVE) Urine Methadone Screen (NEGATIVE) Ur Propoxyphene Screen (NEGATIVE) Ur Barbiturates Screen (NEGATIVE) Ur Tricyclics Screen (NEGATIVE) Ur Phencyclidine Scrn (NEGATIVE) Ur Amphetamine Screen (NEGATIVE) U Methamphetamines Scrn (NEGATIVE) U Benzodiazepines Scrn (NEGATIVE) U Cocaine Metab Screen (NEGATIVE) U Marijuana (THC) Screen (NEGATIVE) Meds: Medications Generic Name Dose Route Start Last Admin Trade Name Freq PRN Reason Stop Dose Admin Acetaminophen 650 mg 12/18/16 19:36 Tylenol PO Q4H PRN Pain (Mild 1-3)/fever Hydrocodone Bitart/Acetaminophen 1 tab 12/18/16 19:36 12/19/16 01:49 [place] 325-5 Mg PO 1 tab Q4H PRN Administration Pain (moderate 4-6) Albuterol/Ipratropium 3 ml 12/18/16 19:38 Duoneb 3.0-0.5 Mg/3 Ml NEB Q4H PRN Shortness Of Breath/wheezing Bisacodyl 5 mg 12/18/16 19:38 Dulcolax PO DAILY PRN Constipation Divalproex Sodium 1,000 mg 12/19/16 09:00 12/19/16 09:49 Depakote PO 1,000 mg DAILY [facility] Administration Divalproex Sodium 250 mg 12/19/16 09:00 12/19/16 09:48 Divalproex Sodium PO 250 mg DAILY [facility] Administration Docusate Sodium 100 mg 12/18/16 19:38 Colace PO BID PRN Constipation Famotidine 20 mg 12/19/16 21:00 Pepcid PO BEDTIME [facility] Flunisolide 0 ml 12/19/16 09:00 Nasalide Nasal [place] NASBOTH Q12H [facility] Fluoxetine HCl 20 mg 12/19/16 09:00 12/19/16 09:48 Prozac PO 20 mg DAILY [facility] Administration Gabapentin 200 mg 12/19/16 09:00 12/19/16 09:49 Neurontin PO 200 mg BID [facility] Administration Hydromorphone HCl 0.25 mg 12/19/16 07:06 Dilaudid IVPUSH Q2H PRN Pain (severe 7-10) Promethazine HCl 12.5 mg/ 50.5 mls @ 100 mls/hr 12/18/16 19:36 Sodium Chloride IV Q6H PRN Nausea/Vomiting Insulin Detemir 0 unit 12/19/16 09:00 Levemir SUBCUT BID [facility] Lorazepam 1 mg 12/18/16 19:36 Ativan IV 12/21/16 23:59 Q6H PRN Anxiety Metoprolol Tartrate 100 mg 12/19/16 09:00 12/19/16 09:56 Lopressor PO 100 mg BID [facility] Administration Multivitamins 1 each 12/19/16 09:00 12/19/16 09:49 Thera PO 1 each DAILY [facility] Administration Ondansetron HCl 4 mg 12/18/16 19:36 Zofran IV Q6H PRN Nausea/Vomiting Oxycodone HCl 5 mg 12/18/16 21:30 12/19/16 09:46 Oxycodone PO 5 mg Q6H [facility] Administration Melatonin [Melatonin 0 each 12/18/16 21:23 ] 5 Mg PO BEDTIME PRN Insomnia Polyethylene Glycol 17 gm 12/18/16 19:38 Miralax PO DAILY PRN Constipation Senna/Docusate Sodium 1 tab 12/18/16 19:38 Senna Plus PO BID PRN Constipation Simvastatin 40 mg 12/19/16 18:00 Zocor PO QPM [facility] Sodium Chloride 10 ml 12/18/16 12:45 12/18/16 13:39 Saline Flush FLUSH 10 ml ASDIRECTED PRN Administration Keep Vein Open Sumatriptan Succinate 50 mg 12/18/16 21:23 Imitrex PO BID PRN Headache Tamsulosin HCl 0.4 mg 12/19/16 09:00 12/19/16 09:48 Flomax PO 0.4 mg DAILY [facility] Administration Temazepam 15 mg 12/18/16 19:38 Restoril PO BEDTIME PRN Sleep Zolpidem Tartrate 5 mg 12/18/16 21:23 Ambien PO BEDTIME PRN Insomnia Discontinued Medications Generic Name Dose Route Start Last Admin Trade Name Freq PRN Reason Stop Dose Admin Hydromorphone HCl 0.25 mg 12/18/16 19:36 Dilaudid IVPUSH Q2H PRN Pain (severe 7-10) Sodium Chloride 1,000 mls @ 250 mls/hr 12/18/16 13:00 12/18/16 13:39 Normal Saline IV 250 mls/hr ASDIRECTED [facility] Administration Thiamine HCl 200 mg/ Sodium 102 mls @ 50 mls/hr 12/18/16 21:23 12/18/16 22:18 Chloride IV 12/18/16 23:25 50 mls/hr ONETIME ONE Administration Iopamidol 150 ml 12/18/16 15:02 12/18/16 15:26 Isovue-300 (61%) IVPUSH 12/18/16 15:03 125 ml ONETIME ONE Administration Pneumococcal Polyvalent Vaccine 0.5 ml 12/19/16 01:12 Pneumovax 23 IM 12/19/16 01:13 .ONCE ONE Sodium Chloride 10 ml 12/18/16 15:02 12/18/16 15:27 Saline Flush FLUSH 12/18/16 15:03 10 ml ONETIME ONE Administration - Re-Assessments/Exams Free Text/Narrative Re-Assessment/Exam: Peripheral IV ordered. Initial labs and studies include CBC, chem 14, troponin, lipase, coag studies, urine drug screen, TSH, UA, chest x-ray one view, forearm x-ray, head CT without contrast. EKG: Sinus bradycardia rate of [address] changes noted. Patient's oral mucosa is quite dry Will order normal saline 250 mls per hour. Patient has pain to the left lower chest and LUQ. Will await for results of creatinine before proceeding with ct abdomen and pelvis with iv contrast. Labs reviewed: White blood cell count 7.18, hemoglobin is 14.4, sodium 140, creatinine 1.3, glucose 138, troponin less than 0.017, lipase 96, TSH 2.5, UA was negative for infection, toxicology screen was negative. Urine drug tox is negative for oxycodone which the patient's currently has a prescription for this. It is unclear what medications he is taking. He is taking his medications inappropriately. Family is concerned about his safety. Patient has done this multiple times in the past. Ann with director of social media marketing was contacted. Patient may require admission to the hospital to have full cognitive evaluation to ensure he is safe to be home by himself. He may require placement to a assisted living or snf. Ann is present within the E.D. and will speak with family and patient. 1951 Reassessment, patient continues to have pain to the LUQ with palpation. Ordered CT of the abdomen and pelvis with IV contrast only. 1522 Ann with Financial Assistant has spoken with patient and family. They are in agreement current situation is not working and patient is a risk of doing badly in current state. She will speak with for admission. CT of the abdomen and pelvis. Nothing acute identified on CT study of the abdomen and pelvis. 12/18/16 17:[address] Perez he has accepted patient. MCG completed patient meets inpatient criteria. Departure - Departure Time of Disposition: 17:18 Disposition: Admitted As Inpatient 66 Condition: Good Clinical Impression: Altered level of consciousness Medication administered in error Qualifiers: Encounter type: initial encounter Injury intent: accidental or unintentional Qualified Code(s): T50.901A - Poisoning by unspecified drugs, medicaments and biological substances, accidental (unintentional), initial encounter - Discharge Information - My Orders Last 24 Hours: My Active Orders 12/18/16 12:45 Sodium Chloride 0.9% [Saline Flush] 10 ml FLUSH ASDIRECTED PRN Peripheral IV Insertion Adult [OM.PC] Stat 12/18/16 12:59 EKG 12 Lead [EKG Documentation Completion] [RC] STAT 12/18/16 14:23 Consult to Financial Assistant [CONS] Routine - Assessment/Plan Last 24 Hours: My Active Orders 12/18/16 12:45 Sodium Chloride 0.9% [Saline Flush] 10 ml FLUSH ASDIRECTED PRN Peripheral IV Insertion Adult [OM.PC] Stat 12/18/16 12:59 EKG 12 Lead [EKG Documentation Completion] [RC] STAT 12/18/16 14:23 Consult to Financial Assistant [CONS] Routine
[2016-12-18] MEDS ORDERED: Sodium Chloride 0.9% 1,000 ML IV SCH (13:00)
--- NOTE | 2016-12-18 13:22 | CT ---
Head CT Technique: Multiple axial sections through the brain were obtained. Intravenous contrast was not utilized. Comparison: Previous head CT exam of 09/20/16 is available. Findings: Ventricles along with basal cisterns and sulci over the convexities are within normal limits for the patient's age. No abnormal parenchymal densities are seen. No evidence of intracranial hemorrhage is seen. No midline shift or mass effect is seen. Bone window settings were reviewed which shows no discrete calvarial abnormality. Visualized sinuses shows minimal mucosal thickening within the right maxillary sinus which is felt to be incidental. Impression: 1. Minimal sinus findings which are felt to be incidental. 2. No acute intracranial abnormality is identified. No significant change is seen from prior head CT exam. Diagnostic code #2
--- NOTE | 2016-12-18 13:58 | CR ---
Left forearm: Two views of the left forearm were obtained. Comparison: No previous forearm study. Small spur and calcification is seen within the distal triceps tendon at the attachment to the olecranon process is seen. Vascular calcification is identified. No acute fracture or other bony abnormality is seen. Impression: 1. Incidental findings. Nothing acute is appreciated on two-view left forearm study. Diagnostic code #2
--- NOTE | 2016-12-18 13:58 | CR ---
Chest: Frontal view of the chest was obtained. Comparison: Previous chest x-ray of 09/20/16. Heart size at the upper limits of normal. Upper mediastinum is normal. Lungs are clear. Bony structures are grossly intact. Impression: 1. Heart size at the upper limits of normal. Nothing acute is appreciated on frontal chest x-ray. Diagnostic code #2
[2016-12-18] MEDS ORDERED: Sodium Chloride 0.9% 10 ML Syringe FLUSH ONE (15:02)
[2016-12-18] MEDS ORDERED: Iopamidol 612 MG/ML 150 ML Bottle IVPUSH ONE (15:02)
--- NOTE | 2016-12-18 15:55 | CT ---
CT abdomen and pelvis Technique: Multiple axial sections were obtained from above the dome of the diaphragm inferiorly through the pubic symphysis. Intravenous contrast was utilized. No oral contrast has been given. Comparison: No previous study. Findings: Small portion of the visualized lung bases shows nothing acute. Fatty infiltration noted within the liver. Spleen appears within normal limits. Adrenal glands show no nodule. Kidneys show symmetric contrast enhancement. Small cortical cysts are noted within each kidney. Pancreas is within normal limits. Aorta shows atherosclerotic change which continues into the iliac vessels without aneurysm. No retroperitoneal adenopathy or mesenteric abnormalities are seen. Mild increased density isseen within the left lower anterior abdominal wall which may relate to previous injections or slight soft tissue change from trauma if such a history. Umbilical hernia is seen containing fat. No pelvic mass or adenopathy is seen. Bladder wall thickening is noted possibly due to lack of distention. No inflammatory change or free fluid is seen. No bowel dilatation is identified. Appendix not visualized with certainty. Delayed images shows contrast within the bladder. Contrast also noted within the distal ureters. Bone window settings were reviewed which shows scattered degenerative change within the spine. Transpedical screws identified at L4 and L5. Impression: 1. Incidental findings as noted above. Nothing acute is identified on CT study of the abdomen and pelvis. Diagnostic code #2
--- NOTE | 2016-12-18 17:31 | PCM.HP ---
H&P History of Present Illness - General Date of Service: 12/18/16 Admit Problem/Dx: Admission Diagnosis/Problem Admission Diagnosis/Problem Altered level of consciousness Source of Information: Patient, Family, Old Records, Provider, RN Notes Reviewed , Significant Other History Limitations: Reports: Altered Mental Status - History of Present Illness Initial Comments - Free Text/Narative: This is a 61-year-old morbidly obese white male with past medical history of hypertension and hyperlipidemia, CAD status post stent placement 3 years ago, chronic diarrhea, chronic back pain, history of left back surgery, type 2 diabetes, peripheral edema, gout, KALEY, chronic OA, insomnia, and 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 Patient lives alone and it appears he may have unintentionally took multiple home medications. Patient is currently somewhat confused and his pertinent history of present illness differs from what was mentioned in ED. He tells me he was walking away from the kitchen after he got a soda drink when he lost his footing. He then tripped and fell to the floor landing on his left side. He denies any prodromal symptoms. He denied having issues with his blood sugar. He denies the possibility of ingesting accidentally his home medications. He states his brother brought him over to ED for evaluation. His initial workup in the emergency department shows an unremarkable CBC and CMP. His UA and UDS are both negative. abdominal CT scan report reads nothing acute identified. Left forearm x-ray report reads nothing acute is appreciated. Chest x-ray report reads heart size at the upper limits of normal. Upper mediastinum is normal. Nothing acute is appreciated. Head CT scan without contrast report reads minimal sinus findings felt to be incidental. Not acute intracranial abnormalities identified. Patient is being admitted for further observation related to altered mental status. He is full code. - Related Data Allergies/Adverse Reactions: Allergies Allergy/AdvReac Type Severity Reaction Status Date / Time No Known Allergies Allergy Verified 12/18/16 12:11 Home Medications: Home Meds Allopurinol [Zyloprim] 100 mg PO DAILY 09/16/13 [History] Aspirin [Sofie Chewable Aspirin] 81 mg PO DAILY 09/16/13 [History] FLUoxetine HCl [Fluoxetine] 20 mg PO DAILY 09/16/13 [History] Ranitidine HCl [Zantac 75] 75 mg PO BID 09/16/13 [History] Simvastatin [Zocor] 40 mg PO QPM 09/16/13 [History] Tamsulosin [Flomax] 0.4 mg PO DAILY 09/16/13 [History] Zolpidem [Ambien] 5 mg PO BEDTIME PRN 09/16/13 [History] Acetaminophen [Tylenol Arthritis Pain] 1,300 mg PO BID 07/17/15 [History] Ibuprofen 600 mg PO Q12H PRN 07/17/15 [History] Multivit with Min #53/FA/K/Q10 [Dekas Plus Softgel] 1 tab PO DAILY 07/17/15 [ History] Rivaroxaban [Xarelto] 20 mg PO DAILY #30 tablet 07/21/15 [Rx] Divalproex Sodium [Depakote ER] 1,000 mg PO DAILY 09/20/16 [History] Fluticasone. 2 sprays NASBOTH DAILY 09/20/16 [History] Gabapentin [Neurontin] 200 mg PO BID 09/20/16 [History] Insulin Glarg,Human.Rec.Analog [LantUS Solostar] 35 units SUBCUT DAILY 09/20/16 [History] oxyCODONE HCl [Roxicodone] 5 mg PO Q6H 09/20/16 [History] Cyclobenzaprine [Flexeril] 10 mg PO BID PRN 12/18/16 [History] Melatonin 5 mg PO BEDTIME PRN 12/18/16 [History] Metoprolol Tartrate [Lopressor] 100 mg PO BID 12/18/16 [History] SUMAtriptan [Imitrex] 50 mg PO BID PRN 12/18/16 [History] Past Medical History Cardiovascular History: Reports: CO, Stents Other Cardiovascular History: one stent Respiratory History: Reports: Sleep Apnea Gastrointestinal History: Reports: Chronic Diarrhea Musculoskeletal History: Reports: Back Pain, Chronic, Other (See Below) Other Musculoskeletal History: left back fusion Neurological History: Reports: CVA Psychiatric History: Reports: Depression Endocrine/Metabolic History: Reports: Diabetes, Type II - Infectious Disease History Infectious Disease History: Reports: Chicken Pox, Measles - Past Surgical History GI Surgical History: Reports: Hernia Repair/Other Neurological Surgical History: Reports: Spinal Fusion Musculoskeletal Surgical History: Reports: Other (See Below) Dermatological Surgical History: Reports: None Social & Family History - Family History HEENT: Reports: None Cardiac: Reports: CO, Stent, Other (See Below) Other Cardiac Family History: Unsure of exact family history GI: Reports: Cholelithiasis Musculoskeletal: Reports: Gout Neurological: Reports: Alzheimers Disease Endocrine/Metabolic: Reports: Diabetes, type II Oncologic: Reports: Colon - Tobacco Use Smoking Status *Q: Never Smoker Second Hand Smoke Exposure: No - Caffeine Use Caffeine Use: Reports: Soda - Alcohol Use Days Per Week of Alcohol Use: 0 - Recreational Drug Use Recreational Drug Use: No - Living Situation & Occupation Living situation: Reports: Single Occupation: Disabled H&P Review of Systems - Review of Systems: Review Of Systems: See Below General: Reports: Malaise, Weakness, Fatigue HEENT: Reports: No Symptoms Pulmonary: Denies: Shortness of Breath Cardiovascular: Reports: Chest Pain (left lower lateral chest border) Genitourinary: Reports: No Symptoms Musculoskeletal: Reports: Arm Pain, Back Pain (chronic ) Skin: Reports: Change in Color (in bilateral barron), Other (Abrasion on lower left leg) Psychiatric: Denies: Depression, Anxiety, Hallucinations Neurological: Reports: Confusion. Denies: Difficulty Walking, Weakness, Gait Disturbance Hematologic/Lymphatic: Reports: No Symptoms Immunologic: Reports: No Symptoms Review of Systems Comment:: ROS obtained from secondary sources. Patient is somewhat confused. Exam - Exam Exam: See Below - Vital Signs Vital Signs: Last Vital Signs Temp 36.6 C 12/18/16 12:11 Pulse 58 L 12/18/16 12:11 Resp 14 12/18/16 12:11 BP 140/63 12/18/16 12:11 Pulse Ox 92 L 12/18/16 12:11 Weight: 131.542 kg - Exam General: Alert, Cooperative. No: Mild Distress HEENT: Conjunctiva Clear, EOMI, Hearing Intact, Mucosa Moist & [place], Nares Patent, Normal Nasal Septum, Pupils Equal, Pupils Reactive Neck: Supple, Trachea Midline, Full Range of Motion. No: JVD Lungs: Normal Respiratory Effort, Decreased Breath Sounds, Other (pain with manual palpation on left lower chest) Cardiovascular: Regular Rate, Regular Rhythm GI/Abdominal Exam: Normal Bowel Sounds, Soft, Non-Tender, No Organomegaly, No Distention, No Abnormal Bruit, No Mass (Male) Exam: Deferred Rectal (Males) Exam: Deferred Back Exam: Normal Inspection, Decreased Range of Motion Extremities: Normal Inspection, Normal Range of Motion, Non-Tender, Normal Capillary Refill, Other (left arm: pain with palpation; lower extremity mild edema and skin changes ) Peripheral Pulses: 2+: Posterior Tibial (L), Posterior Tibial (R), Dorsalis Pedis (L), Dorsalis Pedis (R) Skin: Warm, Dry, Intact Neuro Extensive - Mental Status: Alert, Normal Mood/Affect, Memory Intact, Other (Somewhat confused but seems reasonable). No: Normal Cognition Neuro Extensive - Motor, Sensory, Reflexes: CN II-XII Intact (fairly intact), Normal Gait Psychiatric: Alert, Normal Affect, Normal Mood. No: Anxious, Suicidal Ideation , Homicidal Ideation Physical Exam Comments:: Physical exam limited by AMS - Patient Data Result Diagrams: 12/18/16 13:35 12/18/16 13:35 *Q Meaningful Use (ADM) - VTE *Q VTE Criteria *Q: - Stroke *Q Stroke Criteria *Q: - AMI *Q AMI Criteria *Q: Problem List Initiated/Reviewed/Updated: Yes Orders Last 24hrs: Medication Orders Sodium Chloride (Normal Saline) 1,000 mls @ 250 mls/hr IV ASDIRECTED KAREEM Last Admin: 12/18/16 13:39 Dose: 250 mls/hr Sodium Chloride (Saline Flush) 10 ml FLUSH ASDIRECTED PRN PRN Reason: Keep Vein Open Last Admin: 12/18/16 13:39 Dose: 10 ml Assessment/Plan Comment:: Assessment/Plan: Acute: AMS/Memory Impairment - Likely 2/2 non-toxic - Suspected unintentional ingestion of multiple home maintenance medications - Patient lives alone - No Dementia but carries a hx/o Depression and CVA with residual memory impairment and left hand tremor - Cognitive Eval by TRASH COLLECTOR and MMSE - TSH normal Unintentional Ingestion of Non-Toxic Home Maintenance Medications - Unable to explain why - He currently altered Danger to Himself - Patient ingested multiple home medications Abdominal CT scan Findings - Fatty infiltration within the liver - Small cortical cyst - Umbilical hernia containing fat - Scattered degenerative change within the spine - Trans-pedicle screws at L4 and L5 Monitor for Any Active Bleed - He is on Xarelto for ? hx/o DVT, if he took a bunch of pills its possible he may gotten too much xarelto and ASA - Unfortunately there is no cheap test to monitor his xarelto level - - Will switcjh to manual prophylaxis Chronic: HTN HLD CAD S/p PCI x1 stent 3 years Ago DM2 Peripheral Edema Stasis Dermatitis Gout KALEY Chronic Diarrhea w/ Hx/o Back Surgery OA/Muscle Spasm Hx/o CVA with residual memory impairment and left hand tremor Insomnia Umbilical Hernia Morbid Obesity with BMI of 42 Plan: Admit to Med-Surg With Tele Routine AM Labs PT/OT consult Thiamine daily supplement Diabetic and Heart healthy diet Resume Home Meds Dietary Consult for weight Management Aspiration/Seizure/Fall precautions SW/CM for d/c planning SCDS Additional orders as above Code status: TBD Recommend NH placement patient is unable to take care himself. He is Morbidly Obese with some Memory Impairment from his hx/o CVA, Diabetes, and on blood thinner with Xarelto. He would not be safe to go back home.
[2016-12-18] MEDS ORDERED: Promethazine 12.5 MG in Sodium Chloride 0.9% 50 ML IV PRN (19:36)
[2016-12-18] MEDS ORDERED: HYDROmorphone 1 MG/ML Syringe IVPUSH PRN (19:36)
[2016-12-18] MEDS ORDERED: Ondansetron 4 MG/2 ML SDV IV PRN (19:36)
[2016-12-18] MEDS ORDERED: LORazepam 2 MG/ML MDV IV PRN (19:36)
[2016-12-18] MEDS ORDERED: Acetaminophen 325 MG Tab PO PRN (19:36)
[2016-12-18] MEDS ORDERED: Bisacodyl 5 MG Tab PO PRN (19:38)
[2016-12-18] MEDS ORDERED: Albuterol/Ipratropium 3.0-0.5 MG/3 ML Neb Soln NEB PRN (19:38)
[2016-12-18] MEDS ORDERED: Temazepam 15 MG Cap PO PRN (19:38)
[2016-12-18] MEDS ORDERED: Polyethylene Glycol 3350 Powder 17 GM Packet PO PRN (19:38)
[2016-12-18] MEDS ORDERED: Docusate Sodium 100 MG Cap PO PRN (19:38)
[2016-12-18] MEDS ORDERED: Melatonin [Melatonin] 5 MG PO PRN (21:23)
[2016-12-18] MEDS ORDERED: SUMAtriptan 50 MG Tab PO PRN (21:23)
[2016-12-18] MEDS ORDERED: Thiamine 200 MG in Sodium Chloride 0.9% 100 ML IV ONE (21:23)
[2016-12-18] MEDS ORDERED: Zolpidem 5 MG Tab PO PRN (21:23)
[2016-12-18] MEDS: oxyCODONE 5 MG Tab PO SCH (22:14)
[2016-12-19] MEDS ORDERED: Pneumococcal Polyvalent-23 Vaccine 0.5 ML SDV IM ONE (01:12)
[2016-12-19] MEDS: Acetaminophen/HYDROcodone 325-5 MG Tab PO PRN ×2 (01:49→13:52)
[2016-12-19] MEDS: oxyCODONE 5 MG Tab PO SCH ×4 (03:51→21:06)
[2016-12-19] MEDS ORDERED: HYDROmorphone 0.5 MG/0.5 ML Syringe IVPUSH PRN (07:06)
[2016-12-19] MEDS ORDERED: Metoprolol Tartrate 100 MG Tab PO SCH (09:00)
[2016-12-19] MEDS: Tamsulosin 0.4 MG Cap.ER PO SCH (09:48)
[2016-12-19] MEDS: FLUoxetine 20 MG Cap PO SCH (09:48)
[2016-12-19] MEDS: Divalproex Sodium Delayed-Release 250 MG Tab.CR PO SCH (09:48)
[2016-12-19] MEDS: Divalproex Sodium Delayed-Release 500 MG Tab.CR PO SCH (09:49)
[2016-12-19] MEDS: Gabapentin 100 MG Cap PO SCH ×2 (09:49→21:06)
[2016-12-19] MEDS: Multivitamins,Therapeutic Tab PO SCH (09:49)
[2016-12-19] MEDS ORDERED: Magnesium Sulfate/Water 2 GM in Premix Bag 1 BAG IV ONE (11:15)
[2016-12-19] MEDS: Insulin Detemir 100 Units/ML 3 ML Pen SUBCUT SCH ×2 (11:51→21:16)
[2016-12-19] MEDS ORDERED: FLUTICASONE PROPIONATE NASBOTH SCH (14:15)
[2016-12-19] MEDS ORDERED: Non-Formulary Medication 1 Each (Rivaroxaban [Xarelto] 20 MG) PO SCH (14:15)
--- NOTE | 2016-12-19 14:19 | PCM.PN ---
- General Info Date of Service: 12/19/16 Admission Dx/Problem (Free Text): Admission Diagnosis/Problem Admission Diagnosis/Problem Altered level of consciousness Gordon is seen with the team round this morning. He is alert, pleasant but has difficulty tracking and completing his thought or sentence. He is unsure why he is in the hospital. He is unsure of the name of his PCP or clinic. He does know that he has nurses that come into his home to assist him on a weekly basis and that set up his medications for him. He tells me he had dental work done around 6 weeks ago with teeth pulled and he feels he "hasn't been right" since that time. He does have a CPAP at home but has not been wearing it, cannot tell me the last time he wore his CPAP machine as "I need to clean it but just haven't" so he has not worn it. His brother and sister provide outside family support for him. Functional Status: Reports: Pain Controlled (denies pain other than chronic LBP) , Tolerating Diet, Ambulating, Urinating. Denies: New Symptoms - Review of Systems General: Reports: Weakness. Denies: Fever HEENT: Reports: No Symptoms Pulmonary: Reports: No Symptoms. Denies: Shortness of Breath, Pleuritic Chest Pain, Cough Cardiovascular: Reports: No Symptoms. Denies: Chest Pain, Palpitations, Dyspnea on Exertion Gastrointestinal: Reports: No Symptoms. Denies: Abdominal Pain, Diarrhea, Nausea Genitourinary: Reports: No Symptoms Musculoskeletal: Reports: Back Pain Neurological: Denies: Confusion (he denies confusion but as noted in HPI, he is unable to complete his sentence or thought today during multiple attempts at different questioning), Headache - Patient Data Vitals - Most Recent: Last Vital Signs Temp 98.4 F 12/19/16 11:59 Pulse 41 L 12/19/16 11:59 Resp 16 12/19/16 11:59 BP 133/76 12/19/16 11:59 Pulse Ox 90 L 12/19/16 11:59 Weight - Most Recent: 290 lb I&O - Last 24 Hours: Intake & Output 12/18/16 12/19/16 12/19/16 22:59 06:59 14:59 Intake Total 300 100 120 Balance 300 100 120 Lab Results Last 24 Hours: Laboratory Results - last 24 hr 12/19/16 Range/Units 06:35 Sodium 138 (136-145) mEq/L Potassium 3.7 (3.5-5.1) mEq/L Chloride 100 (98-107) mEq/L Carbon Dioxide 33 H (21-32) mEq/L Anion Gap 8.7 (5-15) BUN 17 (7-18) mg/dL Creatinine 1.1 (0.7-1.3) mg/dL Est Cr Clr Drug Dosing 70.52 mL/min Estimated GFR (MDRD) > 60 (>60) mL/min BUN/Creatinine Ratio 15.5 (14-18) Glucose 136 H (80-115) mg/dL Calcium 8.9 (8.5-10.1) mg/dL Magnesium 1.6 L (1.8-2.4) mg/dl Med Orders - Current: Current Medications Acetaminophen (Tylenol) 650 mg PO Q4H PRN PRN Reason: Pain (Mild 1-3)/fever Hydrocodone Bitart/Acetaminophen ([place] 325-5 Mg) 1 tab PO Q4H PRN PRN Reason: Pain (moderate 4-6) Last Admin: 12/19/16 13:52 Dose: 1 tab Albuterol/Ipratropium (Duoneb 3.0-0.5 Mg/3 Ml) 3 ml NEB Q4H PRN PRN Reason: Shortness Of Breath/wheezing Bisacodyl (Dulcolax) 5 mg PO DAILY PRN PRN Reason: Constipation Divalproex Sodium (Depakote) 1,000 mg PO DAILY [facility] Last Admin: 12/19/16 09:49 Dose: 1,000 mg Divalproex Sodium (Divalproex Sodium) 250 mg PO DAILY [facility] Last Admin: 12/19/16 09:48 Dose: 250 mg Docusate Sodium (Colace) 100 mg PO BID PRN PRN Reason: Constipation Famotidine (Pepcid) 20 mg PO BEDTIME [facility] Flunisolide (Nasalide Nasal [place]) 0 ml NASBOTH Q12H [facility] Last Admin: 12/19/16 11:49 Dose: 2 spray Fluoxetine HCl (Prozac) 20 mg PO DAILY [facility] Last Admin: 12/19/16 09:48 Dose: 20 mg Furosemide (Lasix) 40 mg PO DAILY [facility] Gabapentin (Neurontin) 200 mg PO BID [facility] Last Admin: 12/19/16 09:49 Dose: 200 mg Promethazine HCl 12.5 mg/ (Sodium Chloride) 50.5 mls @ 100 mls/hr IV Q6H PRN PRN Reason: Nausea/Vomiting Insulin Aspart (Novolog) 0 unit SUBCUT QIDACANDBED [facility] PRN Reason: Protocol Insulin Detemir (Levemir) 0 unit SUBCUT BID [facility] Last Admin: 12/19/16 11:51 Dose: 17.5 units Lisinopril (Prinivil) 10 mg PO DAILY [facility] Lorazepam (Ativan) 1 mg IV Q6H PRN PRN Reason: Anxiety Stop: 12/21/16 23:59 Magnesium Sulfate (Pharmacy To Dose - Magnesium Replacement) 1 dose .XX DAILY [facility] Metformin HCl (Glucophage) 500 mg PO BIDMEALS [facility] Metoprolol Tartrate (Lopressor) 50 mg PO Q12HR [facility] Multivitamins (Thera) 1 each PO DAILY [facility] Last Admin: 12/19/16 09:49 Dose: 1 each Non-Formulary Medication (Fluticasone Propionate) 1 squirt NASBOTH DAILY [facility] Ondansetron HCl (Zofran) 4 mg IV Q6H PRN PRN Reason: Nausea/Vomiting Oxycodone HCl (Oxycodone) 5 mg PO Q6H [facility] Last Admin: 12/19/16 09:46 Dose: 5 mg Melatonin [Melatonin (] 5 Mg) 0 each PO BEDTIME PRN PRN Reason: Insomnia Polyethylene Glycol (Miralax) 17 gm PO DAILY PRN PRN Reason: Constipation Potassium Chloride (Pharmacy To Dose - Potassium Replacement) 1 dose .XX DAILY [facility] Senna/Docusate Sodium (Senna Plus) 1 tab PO BID PRN PRN Reason: Constipation Simvastatin (Zocor) 40 mg PO QPM [facility] Sodium Chloride (Saline Flush) 10 ml FLUSH ASDIRECTED PRN PRN Reason: Keep Vein Open Last Admin: 12/18/16 13:39 Dose: 10 ml Sumatriptan Succinate (Imitrex) 50 mg PO BID PRN PRN Reason: Headache Tamsulosin HCl (Flomax) 0.4 mg PO DAILY [facility] Last Admin: 12/19/16 09:48 Dose: 0.4 mg Temazepam (Restoril) 15 mg PO BEDTIME PRN PRN Reason: Sleep Zolpidem Tartrate (Ambien) 5 mg PO BEDTIME PRN PRN Reason: Insomnia Discontinued Medications Hydromorphone HCl (Dilaudid) 0.25 mg IVPUSH Q2H PRN PRN Reason: Pain (severe 7-10) Hydromorphone HCl (Dilaudid) 0.25 mg IVPUSH Q2H PRN PRN Reason: Pain (severe 7-10) Sodium Chloride (Normal Saline) 1,000 mls @ 250 mls/hr IV ASDIRECTED [facility] Last Admin: 12/18/16 13:39 Dose: 250 mls/hr Thiamine HCl 200 mg/ Sodium (Chloride) 102 mls @ 50 mls/hr IV ONETIME ONE Stop: 12/18/16 23:25 Last Admin: 12/18/16 22:18 Dose: 50 mls/hr Magnesium Sulfate 2 gm/ Premix 50 mls @ 25 mls/hr IV ONETIME ONE Stop: 12/19/16 13:14 Last Admin: 12/19/16 12:03 Dose: 25 mls/hr Iopamidol (Isovue-300 (61%)) 150 ml IVPUSH ONETIME ONE Stop: 12/18/16 15:03 Last Admin: 12/18/16 15:26 Dose: 125 ml Metoprolol Tartrate (Lopressor) 100 mg PO BID [facility] Last Admin: 12/19/16 09:56 Dose: 100 mg Non-Formulary Medication (Rivaroxaban [Xarelto]) 20 mg PO DAILY [facility] Pneumococcal Polyvalent Vaccine (Pneumovax 23) 0.5 ml IM .ONCE ONE Stop: 12/19/16 01:13 Sodium Chloride (Saline Flush) 10 ml FLUSH ONETIME ONE Stop: 12/18/16 15:03 Last Admin: 12/18/16 15:27 Dose: 10 ml - Exam Quality Assessment: DVT Prophylaxis General: Alert, Cooperative, No Acute Distress HEENT: Pupils Equal, Pupils Reactive, Mucous Membr. Moist/[place] Neck: Supple Lungs: Clear to Auscultation, Normal Respiratory Effort, Decreased Breath Sounds (bases) Cardiovascular: Regular Rate, Regular Rhythm, Other (decreased heart tones) GI/Abdominal Exam: Normal Bowel Sounds, Soft, Non-Tender, Hernia (palpable midline, nontender) (Male) Exam: Deferred Extremities: Pedal Edema (trace to 1+ bilat to ankles and tibia. Scabbed wounds to left mid tibial shaft, right lateral foot and tip of right toes consistent with venous insufficiency changes to LE) Peripheral Pulses: 1+: Dorsalis Pedis (L), Dorsalis Pedis (R) Neurological: Normal Speech Psy/Mental Status: Alert - Problem List & Annotations (1) Fall as cause of accidental injury at home as place of occurrence SNOMED Code(s): 63060492 Code(s): W19.XXXA - UNSPECIFIED FALL, INITIAL ENCOUNTER; Y92.009 - UNSP PLACE IN UNSP NON-INSTITUT (PRIVATE) RESIDENCE PLACE Status: Acute Priority: High Current Visit: Yes Qualifiers: Encounter type: initial encounter Qualified Code(s): W19.XXXA - Unspecified fall, initial encounter; Y92.009 - Unspecified place in unspecified non-institutional (private) residence as the place of occurrence of the external cause (2) Altered level of consciousness SNOMED Code(s): 6029369 Code(s): R40.4 - TRANSIENT ALTERATION OF AWARENESS Status: Acute Priority : High Current Visit: Yes (3) Paroxysmal atrial fibrillation SNOMED Code(s): 943990696 Code(s): I48.0 - PAROXYSMAL ATRIAL FIBRILLATION Status: Chronic Priority : High Current Visit: Yes (4) Morbid obesity SNOMED Code(s): 903564604 Code(s): E66.01 - MORBID (SEVERE) OBESITY DUE TO EXCESS CALORIES Status: Chronic Priority: High Current Visit: Yes (5) Sleep apnea SNOMED Code(s): 28243073 Code(s): G47.30 - SLEEP APNEA, UNSPECIFIED Status: Chronic Priority: High Current Visit: Yes (6) Edema of lower extremity SNOMED Code(s): 986344371 Code(s): R60.0 - LOCALIZED EDEMA Status: Chronic Priority: High Current Visit: Yes (7) Diabetes mellitus type 2 in obese SNOMED Code(s): 07630065 Code(s): E11.9 - TYPE 2 DIABETES MELLITUS WITHOUT COMPLICATIONS; E66.9 - OBESITY, UNSPECIFIED Status: Chronic Priority: High Current Visit: Yes (8) HTN, Essential hypertension SNOMED Code(s): 50840934 Code(s): I10 - ESSENTIAL (PRIMARY) HYPERTENSION Status: Chronic Priority : Medium Current Visit: Yes - Problem List Review Problem List Initiated/Reviewed/Updated: Yes - My Orders Last 24 Hours: My Active Orders 12/19/16 14:03 Carotid Comp [US] Routine Echo Comp wo Cont [US] Routine 12/19/16 14:04 Ang Head wo Cont [MR] Routine 12/19/16 14:05 Accu Check [Blood Glucose Check, Bedside] [RC] QIDACANDBED Brain wo Cont [MR] Routine 12/19/16 14:06 Consult to Diabetic Nurse Specialist [CONS] Routine Consult to Yarn Washer [CONS] Routine 12/19/16 14:15 Fluticasone Propionate 1 squirt NASBOTH DAILY 12/19/16 17:00 Insulin Aspart [NovoLOG] See Protocol SUBCUT QIDACANDBED metFORMIN [Glucophage] 500 mg PO BIDMEALS 12/19/16 21:00 Metoprolol Tartrate [Lopressor] 50 mg PO Q12HR 12/20/16 05:11 BASIC METABOLIC PANEL,BMP [CHEM] AM C-REACTIVE PROTEIN [CHEM] AM CBC WITH AUTO DIFF [HEME] AM GLYCOSYLATED HEMOGLOBIN,HGBA1C [CHEM] AM LIPID PANEL [CHEM] AM MAGNESIUM [CHEM] AM 12/20/16 09:00 Furosemide [Lasix] 40 mg PO DAILY 12/20/16 14:08 Lisinopril [Prinivil] 10 mg PO DAILY - Plan Plan:: Assessment/Plan: Acute: AMS/Memory Impairment - Likely 2/2 non-toxic - Suspected unintentional ingestion of multiple home maintenance medications - Patient lives alone - No Dementia but carries a hx/o Depression and CVA with residual memory impairment and left hand tremor - Cognitive Eval by COUTURE DRESSMAKER and MMSE - TSH normal - Records rec'd from [facility]---hx of paroxysmal a-fib, restart xarelto and ASA- telemetry -Will obtain MRI/MRA of brain, 2D echo, carotid US as no records available at [facility] for any of these studies Hypomagnesemia- -Replete and monitor daily -Pharmacy to dose Unintentional Ingestion of Non-Toxic Home Maintenance Medications - Unable to explain why - He currently altered Danger to Himself - Patient ingested multiple home medications Abdominal CT scan Findings - Fatty infiltration within the liver - Small cortical cyst - Umbilical hernia containing fat - Scattered degenerative change within the spine - Trans-pedicle screws at L4 and L5 Chronic: HTN HLD CAD S/p PCI x1 stent 3 years Ago DM2--A1C, CDE, Accuchecks QID with SSI coverage Peripheral Edema with Stasis Dermatitis and early skin ulcers--PT for wound care to eval and tx Gout hx KALEY--noncoompliant with CPAP, this alone may cause altered mental status if severe untreated KALEY Chronic Diarrhea w/ Hx/o Back Surgery OA/Muscle Spasm Hx/o CVA with residual memory impairment and left hand tremor Insomnia Umbilical Hernia Morbid Obesity with BMI of 42 Plan: Admit to Med-Surg With Tele Routine AM Labs PT/OT consult Thiamine daily supplement Diabetic and Heart healthy diet Resume Home Meds Dietary Consult for weight Management Aspiration/Seizure/Fall precautions SW/CM for d/c planning DVT/GI prophylax Additional orders as above Code status: Full Code Recommend NH placement patient is unable to take care himself. He is Morbidly Obese with some Memory Impairment from his hx/o CVA, Diabetes, and on blood thinner with Xarelto. He would not be safe to go back home.
--- NOTE | 2016-12-19 14:27 | PCM.SN ---
- Free Text/Narrative Note: Reviewed records obtained from [place]: Patient carries a hx/o PAF and CAD. We will resume Xarelto and ASA.
[2016-12-19] MEDS: Rivaroxaban 10 MG Tab PO SCH (15:33)
[2016-12-19] MEDS: Aspirin 81 MG Tab.Chew PO SCH (15:34)
--- NOTE | 2016-12-19 15:50 | MR ---
MR angiogram of brain Technique: [id number] MRA angiogram sequence was obtained with multiple MIP images being obtained in multiple projections. Comparison: Previous neck MR angiogram partially showing the intracranial vessels dated 07/20/15. MR angiogram of brain dated 07/19/15 is also available. Findings: Focal high-grade stenosis is again noted within the distal left internal carotid artery. This causes stenosis of greater than 90%. Atherosclerotic irregularity is seen within the left A1 segment and within the proximal middle cerebral artery on the left side. The left A1 segment is narrowed and smaller in size and the right A1 segment. This finding within the A1 segment is increased in severity from previous exam. Distal vertebral arteries and basilar artery appears unremarkable. Proximal posterior cerebral arteries appear within normal limits. Other portions of the middle cerebral and anterior cerebral arteries appear within normal limits. Impression: 1. Critical narrowing of the distal left internal carotid artery appearing fairly similar to previous exam. Narrowing is greater than 90%. 2. Atherosclerotic irregularity of the left A1 segment and proximal right MCA. Right A1 segment shows diffuse narrowing. Findings within the right A1 segment are slightly more prominent than on previous exam. 3. No additional abnormality is identified on MR angiogram study centered to [place]. Diagnostic code #5
[2016-12-19] MEDS: Insulin Aspart 100 Units/ML 3 ML Pen SUBCUT SCH ×2 (18:35→21:11)
[2016-12-19] MEDS: metFORMIN 500 MG Tab PO SCH (18:35)
[2016-12-19] MEDS: Simvastatin 40 MG Tab PO SCH (18:35)
[2016-12-19] MEDS: Metoprolol Tartrate 50 MG Tab PO SCH (21:05)
[2016-12-19] MEDS: Famotidine 20 MG Tab PO SCH (21:06)
[2016-12-20] MEDS: oxyCODONE 5 MG Tab PO SCH ×4 (04:16→21:46)
--- NOTE | 2016-12-20 05:36 | US ---
Carotid ultrasound: Duplex and color flow imaging was obtained of the carotid arteries. Comparison: Previous MR angiogram study of the carotid arteries dated 07/20/15 and carotid ultrasound exam dated 06/06/12. Diffuse plaque is noted within the distal right common carotid artery, carotid bulb and proximal internal and external carotid arteries on the right side. Mild plaque is noted within the left distal common carotid artery. Velocity measurements Right side: CCA has a peak systolic velocity of 1.08 m/s. ICA has a peak systolic velocity of 1.56 m/s and peak end-diastolic velocity of 0.30 m/s. ECA has a peak systolic velocity of 1.95 m/s. Right vertebral artery has a peak systolic velocity of 0.31 m/s. ICA/CCA ratio is 1.4. Left side: CCA has a peak systolic velocity of 1.20 m/s. ICA has a peak systolic velocity of 0.87 m/s and peak end-diastolic velocity of 0.17 m/s. ECA has a peak systolic velocity of 1.34 m/s. Vertebral artery has a peak systolic velocity of 0.52 m/s. ICA/CCA ratio is 0.7. Impression: 1. Diffuse plaque on the right side with lesser plaque on the left side. 2. Velocity measurements within the right internal carotid artery corresponds to plaque in the 50-79% range. Plaque is increased from previous exam. 3. Velocity measurements within the left internal carotid artery correspond to stenosis in the range of 1-49%. 4. Mildly elevated velocity measurements within both external carotid arteries. These findings have also increased in prominence from prior exam. Diagnostic code #3
[2016-12-20] MEDS: metFORMIN 500 MG Tab PO SCH ×2 (06:28→17:18)
[2016-12-20] MEDS: Insulin Aspart 100 Units/ML 3 ML Pen SUBCUT SCH ×4 (06:29→21:47)
[2016-12-20] MEDS: FLUoxetine 20 MG Cap PO SCH (09:32)
[2016-12-20] MEDS: Divalproex Sodium Delayed-Release 250 MG Tab.CR PO SCH (09:32)
[2016-12-20] MEDS: Multivitamins,Therapeutic Tab PO SCH (09:32)
[2016-12-20] MEDS: Tamsulosin 0.4 MG Cap.ER PO SCH (09:32)
[2016-12-20] MEDS: Metoprolol Tartrate 50 MG Tab PO SCH ×2 (09:33→21:45)
[2016-12-20] MEDS: Aspirin 81 MG Tab.Chew PO SCH (09:33)
[2016-12-20] MEDS: Furosemide 40 MG Tab PO SCH (09:37)
[2016-12-20] MEDS: Divalproex Sodium Delayed-Release 500 MG Tab.CR PO SCH (09:37)
[2016-12-20] MEDS: Rivaroxaban 10 MG Tab PO SCH (09:37)
[2016-12-20] MEDS: Gabapentin 100 MG Cap PO SCH ×2 (09:37→21:46)
[2016-12-20] MEDS: Insulin Detemir 100 Units/ML 3 ML Pen SUBCUT SCH ×2 (09:42→21:47)
--- NOTE | 2016-12-20 10:33 | MR ---
MRI brain Technique: T1 sagittal; T2, T2 FLAIR, T1 and diffusion axial; T1 FLAIR coronal images were obtained through the brain. Comparison: Previous head CT exam of 12/18/16 and previous MRI brain of 06/05/12. Findings: Increased signal within both thalami are seen. Findings have significantly improved from previous MRI. Small areas of increased signal are scattered within the subcortical and periventricular white matter which is felt compatible with small vessel ischemic demyelination change. No other abnormal signal is seen within the brain parenchyma. No midline shift or mass effect is seen. No acute diffusion abnormalities are seen. Ventricles along with basal cisterns and sulci over the convexities are within normal limits for the patient's age. Normal signal void is seen within the major cerebral arteries within the skull base. Impression: 1. Prior MRI showed increased signal within both thalami which has significantly improved from previous exam. Minimal residual signal is seen. 2. Minimal areas of small vessel ischemic demyelination change are seen. 3. Nothing acute is appreciated on noncontrast MRI study of the brain. Diagnostic code #2
--- NOTE | 2016-12-20 14:04 | PCM.PN ---
- General Info Date of Service: 12/20/16 Admission Dx/Problem (Free Text): Admission Diagnosis/Problem Admission Diagnosis/Problem Altered level of consciousness Gordon is seen with the this morning. He is alert, pleasant but has difficulty tracking and completing his thought or sentence. He is unsure why he is in the hospital. Functional Status: Reports: Pain Controlled (chronic LBP), Tolerating Diet, Ambulating, Urinating. Denies: New Symptoms - Review of Systems General: Reports: No Symptoms, Weakness (generalized/chronic) HEENT: Reports: No Symptoms Pulmonary: Reports: No Symptoms. Denies: Shortness of Breath, Cough Cardiovascular: Reports: No Symptoms. Denies: Chest Pain, Palpitations Gastrointestinal: Reports: No Symptoms. Denies: Diarrhea, Nausea Genitourinary: Reports: No Symptoms Musculoskeletal: Reports: Back Pain (chronic) Skin: Reports: No Symptoms Neurological: Reports: No Symptoms, Headache (states dull headache this morning) . Denies: Confusion (denies confusion or difficulty finding or getting words out today) Psychiatric: Reports: No Symptoms, Other - Patient Data Vitals - Most Recent: Last Vital Signs Temp 98.6 F 12/20/16 12:33 Pulse 76 12/20/16 12:33 Resp 14 12/20/16 08:11 BP 135/68 12/20/16 12:33 Pulse Ox 98 12/20/16 13:44 Weight - Most Recent: 289 lb 12.8 oz I&O - Last 24 Hours: Intake & Output 12/19/16 12/20/16 12/20/16 22:59 06:59 14:59 Intake Total 1580 575 120 Output Total 200 Balance 1580 375 120 Lab Results Last 24 Hours: Laboratory Results - last 24 hr 12/19/16 12/19/16 12/20/16 Range/Units 18:02 21:10 06:29 WBC (4.23-9.07) K/mm3 RBC (4.63-6.08) M/mm3 Hgb (13.7-17.5) gm/L Hct (40.1-51.0) % MCV (79.0-92.2) fl MCH (25.7-32.2) pg MCHC (32.2-35.5) g/dl RDW Std Deviation (35.1-43.9) fL Plt Count (163-337) K/mm3 MPV (9.4-12.3) fl Neut % (Auto) (34.0-67.9) % Lymph % (Auto) (21.8-53.1) % Will % (Auto) (5.3-12.2) % Eos % (Auto) (0.8-7.0) Baso % (Auto) (0.1-1.2) % Neut # (Auto) (1.78-5.38) K/mm3 Lymph # (Auto) (1.32-3.57) K/mm3 Will # (Auto) (0.30-0.82) K/mm3 Eos # (Auto) (0.04-0.54) K/mm3 Baso # (Auto) (0.01-0.08) K/mm3 Sodium (136-145) mEq/L Potassium (3.5-5.1) mEq/L Chloride (98-107) mEq/L Carbon Dioxide (21-32) mEq/L Anion Gap (5-15) BUN (7-18) mg/dL Creatinine (0.7-1.3) mg/dL Est Cr Clr Drug Dosing mL/min Estimated GFR (MDRD) (>60) mL/min BUN/Creatinine Ratio (14-18) Glucose (80-115) mg/dL POC Glucose 155 H 120 H 127 H (80-115) mg/dL Hemoglobin A1c (4.50-6.20) % Calcium (8.5-10.1) mg/dL Magnesium (1.8-2.4) mg/dl C-Reactive Protein (<1.0) mg/dL Triglycerides (<150) mg/dL Cholesterol (<200) mg/dL LDL Cholesterol Direct (<100) mg/dL HDL Cholesterol (40-59) mg/dL 12/20/16 12/20/16 12/20/16 Range/Units 06:53 06:53 06:53 WBC 9.29 H (4.23-9.07) K/mm3 RBC 4.49 L (4.63-6.08) M/mm3 Hgb 14.0 (13.7-17.5) gm/L Hct 43.3 (40.1-51.0) % MCV 96.4 H (79.0-92.2) fl MCH 31.2 (25.7-32.2) pg MCHC 32.3 (32.2-35.5) g/dl RDW Std Deviation 45.9 H (35.1-43.9) fL Plt Count 183 (163-337) K/mm3 MPV 10.5 (9.4-12.3) fl Neut % (Auto) 65.1 (34.0-67.9) % Lymph % (Auto) 22.6 (21.8-53.1) % Will % (Auto) 9.1 (5.3-12.2) % Eos % (Auto) 2.5 (0.8-7.0) Baso % (Auto) 0.4 (0.1-1.2) % Neut # (Auto) 6.04 H (1.78-5.38) K/mm3 Lymph # (Auto) 2.10 (1.32-3.57) K/mm3 Will # (Auto) 0.85 H (0.30-0.82) K/mm3 Eos # (Auto) 0.23 (0.04-0.54) K/mm3 Baso # (Auto) 0.04 (0.01-0.08) K/mm3 Sodium 138 (136-145) mEq/L Potassium 4.2 (3.5-5.1) mEq/L Chloride 101 (98-107) mEq/L Carbon Dioxide 34 H (21-32) mEq/L Anion Gap 7.2 (5-15) BUN 18 (7-18) mg/dL Creatinine 1.1 (0.7-1.3) mg/dL Est Cr Clr Drug Dosing 70.52 mL/min Estimated GFR (MDRD) > 60 (>60) mL/min BUN/Creatinine Ratio 16.4 (14-18) Glucose 125 H (80-115) mg/dL POC Glucose (80-115) mg/dL Hemoglobin A1c 6.80 H (4.50-6.20) % Calcium 9.6 (8.5-10.1) mg/dL Magnesium 2.1 (1.8-2.4) mg/dl C-Reactive Protein 0.5 (<1.0) mg/dL Triglycerides 459 H (<150) mg/dL Cholesterol 251 H (<200) mg/dL LDL Cholesterol Direct 142 H* (<100) mg/dL HDL Cholesterol 39.0 L (40-59) mg/dL 12/20/16 Range/Units 11:48 WBC (4.23-9.07) K/mm3 RBC (4.63-6.08) M/mm3 Hgb (13.7-17.5) gm/L Hct (40.1-51.0) % MCV (79.0-92.2) fl MCH (25.7-32.2) pg MCHC (32.2-35.5) g/dl RDW Std Deviation (35.1-43.9) fL Plt Count (163-337) K/mm3 MPV (9.4-12.3) fl Neut % (Auto) (34.0-67.9) % Lymph % (Auto) (21.8-53.1) % Will % (Auto) (5.3-12.2) % Eos % (Auto) (0.8-7.0) Baso % (Auto) (0.1-1.2) % Neut # (Auto) (1.78-5.38) K/mm3 Lymph # (Auto) (1.32-3.57) K/mm3 Will # (Auto) (0.30-0.82) K/mm3 Eos # (Auto) (0.04-0.54) K/mm3 Baso # (Auto) (0.01-0.08) K/mm3 Sodium (136-145) mEq/L Potassium (3.5-5.1) mEq/L Chloride (98-107) mEq/L Carbon Dioxide (21-32) mEq/L Anion Gap (5-15) BUN (7-18) mg/dL Creatinine (0.7-1.3) mg/dL Est Cr Clr Drug Dosing mL/min Estimated GFR (MDRD) (>60) mL/min BUN/Creatinine Ratio (14-18) Glucose (80-115) mg/dL POC Glucose 200 H (80-115) mg/dL Hemoglobin A1c (4.50-6.20) % Calcium (8.5-10.1) mg/dL Magnesium (1.8-2.4) mg/dl C-Reactive Protein (<1.0) mg/dL Triglycerides (<150) mg/dL Cholesterol (<200) mg/dL LDL Cholesterol Direct (<100) mg/dL HDL Cholesterol (40-59) mg/dL Med Orders - Current: Current Medications Acetaminophen (Tylenol) 650 mg PO Q4H PRN PRN Reason: Pain (Mild 1-3)/fever Hydrocodone Bitart/Acetaminophen ([place] 325-5 Mg) 1 tab PO Q4H PRN PRN Reason: Pain (moderate 4-6) Last Admin: 12/19/16 13:52 Dose: 1 tab Albuterol/Ipratropium (Duoneb 3.0-0.5 Mg/3 Ml) 3 ml NEB Q4H PRN PRN Reason: Shortness Of Breath/wheezing Aspirin (Aspirin) 81 mg PO DAILY [facility] Last Admin: 12/20/16 09:33 Dose: 81 mg Bisacodyl (Dulcolax) 5 mg PO DAILY PRN PRN Reason: Constipation Divalproex Sodium (Depakote) 1,000 mg PO DAILY [facility] Last Admin: 12/20/16 09:37 Dose: 1,000 mg Divalproex Sodium (Divalproex Sodium) 250 mg PO DAILY [facility] Last Admin: 12/20/16 09:32 Dose: 250 mg Docusate Sodium (Colace) 100 mg PO BID PRN PRN Reason: Constipation Famotidine (Pepcid) 20 mg PO BEDTIME [facility] Last Admin: 12/19/16 21:06 Dose: 20 mg Fenofibrate (Tricor) 145 mg PO DAILY [facility] Flunisolide (Nasalide Nasal [place]) 0 ml NASBOTH Q12H [facility] Last Admin: 12/20/16 09:53 Dose: 2 spray Fluoxetine HCl (Prozac) 20 mg PO DAILY [facility] Last Admin: 12/20/16 09:32 Dose: 20 mg Furosemide (Lasix) 40 mg PO DAILY [facility] Last Admin: 12/20/16 09:37 Dose: 40 mg Gabapentin (Neurontin) 200 mg PO BID [facility] Last Admin: 12/20/16 09:37 Dose: 200 mg Promethazine HCl 12.5 mg/ (Sodium Chloride) 50.5 mls @ 100 mls/hr IV Q6H PRN PRN Reason: Nausea/Vomiting Insulin Aspart (Novolog) 0 unit SUBCUT QIDACANDBED [facility] PRN Reason: Protocol Last Admin: 12/20/16 11:59 Dose: 2 unit Insulin Detemir (Levemir) 0 unit SUBCUT BID [facility] Last Admin: 12/20/16 09:42 Dose: 17.5 units Lisinopril (Prinivil) 10 mg PO DAILY [facility] Lorazepam (Ativan) 1 mg IV Q6H PRN PRN Reason: Anxiety Stop: 12/21/16 23:59 Last Admin: 12/19/16 21:04 Dose: 1 mg Magnesium Sulfate (Pharmacy To Dose - Magnesium Replacement) 1 dose .XX DAILY [facility] Last Admin: 12/20/16 10:00 Dose: Not Given Metoprolol Tartrate (Lopressor) 50 mg PO Q12HR [facility] Last Admin: 12/20/16 09:33 Dose: 50 mg Multivitamins (Thera) 1 each PO DAILY [facility] Last Admin: 12/20/16 09:32 Dose: 1 each Ondansetron HCl (Zofran) 4 mg IV Q6H PRN PRN Reason: Nausea/Vomiting Oxycodone HCl (Oxycodone) 5 mg PO Q6H [facility] Last Admin: 12/20/16 09:32 Dose: 5 mg Melatonin [Melatonin (] 5 Mg) 0 each PO BEDTIME PRN PRN Reason: Insomnia Polyethylene Glycol (Miralax) 17 gm PO DAILY PRN PRN Reason: Constipation Potassium Chloride (Pharmacy To Dose - Potassium Replacement) 1 dose .XX DAILY [facility] Last Admin: 12/20/16 10:00 Dose: Not Given Rivaroxaban (Xarelto) 20 mg PO DAILY [facility] Last Admin: 12/20/16 09:37 Dose: 20 mg Senna/Docusate Sodium (Senna Plus) 1 tab PO BID PRN PRN Reason: Constipation Simvastatin (Zocor) 40 mg PO QPM [facility] Last Admin: 12/19/16 18:35 Dose: 40 mg Sodium Chloride (Saline Flush) 10 ml FLUSH ASDIRECTED PRN PRN Reason: Keep Vein Open Last Admin: 12/18/16 13:39 Dose: 10 ml Sumatriptan Succinate (Imitrex) 50 mg PO BID PRN PRN Reason: Headache Tamsulosin HCl (Flomax) 0.4 mg PO DAILY [facility] Last Admin: 12/20/16 09:32 Dose: 0.4 mg Zolpidem Tartrate (Ambien) 5 mg PO BEDTIME PRN PRN Reason: Insomnia Discontinued Medications Hydromorphone HCl (Dilaudid) 0.25 mg IVPUSH Q2H PRN PRN Reason: Pain (severe 7-10) Hydromorphone HCl (Dilaudid) 0.25 mg IVPUSH Q2H PRN PRN Reason: Pain (severe 7-10) Sodium Chloride (Normal Saline) 1,000 mls @ 250 mls/hr IV ASDIRECTED [facility] Last Admin: 12/18/16 13:39 Dose: 250 mls/hr Thiamine HCl 200 mg/ Sodium (Chloride) 102 mls @ 50 mls/hr IV ONETIME ONE Stop: 12/18/16 23:25 Last Admin: 12/18/16 22:18 Dose: 50 mls/hr Magnesium Sulfate 2 gm/ Premix 50 mls @ 25 mls/hr IV ONETIME ONE Stop: 12/19/16 13:14 Last Admin: 12/19/16 12:03 Dose: 25 mls/hr Iopamidol (Isovue-300 (61%)) 150 ml IVPUSH ONETIME ONE Stop: 12/18/16 15:03 Last Admin: 12/18/16 15:26 Dose: 125 ml Metformin HCl (Glucophage) 500 mg PO BIDMOALS [facility] Last Admin: 12/20/16 06:28 Dose: 500 mg Metoprolol Tartrate (Lopressor) 100 mg PO BID [facility] Last Admin: 12/19/16 09:56 Dose: 100 mg Non-Formulary Medication (Rivaroxaban [Xarelto]) 20 mg PO DAILY [facility] Pneumococcal Polyvalent Vaccine (Pneumovax 23) 0.5 ml IM .ONCE ONE Stop: 12/19/16 01:13 Sodium Chloride (Saline Flush) 10 ml FLUSH ONETIME ONE Stop: 12/18/16 15:03 Last Admin: 12/18/16 15:27 Dose: 10 ml Temazepam (Restoril) 15 mg PO BEDTIME PRN PRN Reason: Sleep - Exam Quality Assessment: DVT Prophylaxis General: Alert, Cooperative, No Acute Distress HEENT: Pupils Equal, Pupils Reactive, EOMI, Mucous Membr. Moist/[place] Neck: Supple Lungs: Clear to Auscultation, Normal Respiratory Effort, Decreased Breath Sounds (bases) Cardiovascular: Regular Rate, Regular Rhythm GI/Abdominal Exam: Normal Bowel Sounds, Soft, Non-Tender, Other (palpable ventral hernia, nontender) (Male) Exam: Deferred Extremities: Other (venous insufficiency changes noted; 1+ edema to ankles bilat ) Peripheral Pulses: 1+: Dorsalis Pedis (L), Dorsalis Pedis (R) Neurological: Other (unable to complete sentences, intermittent expressive aphasia, difficulty tracking) Psy/Mental Status: Alert, Other (flat affect) - Problem List & Annotations (1) Fall as cause of accidental injury at home as place of occurrence SNOMED Code(s): 03131302 Code(s): W19.XXXA - UNSPECIFIED FALL, INITIAL ENCOUNTER; Y92.009 - UNSP PLACE IN UNSP NON-INSTITUT (PRIVATE) RESIDENCE PLACE Status: Acute Priority: High Current Visit: Yes Qualifiers: Encounter type: initial encounter Qualified Code(s): W19.XXXA - Unspecified fall, initial encounter; Y92.009 - Unspecified place in unspecified non-institutional (private) residence as the place of occurrence of the external cause (2) Altered level of consciousness SNOMED Code(s): 9772261 Code(s): R40.4 - TRANSIENT ALTERATION OF AWARENESS Status: Acute Priority : High Current Visit: Yes (3) Paroxysmal atrial fibrillation SNOMED Code(s): 436646844 Code(s): I48.0 - PAROXYSMAL ATRIAL FIBRILLATION Status: Chronic Priority : High Current Visit: Yes (4) Morbid obesity SNOMED Code(s): 728099911 Code(s): E66.01 - MORBID (SEVERE) OBESITY DUE TO EXCESS CALORIES Status: Chronic Priority: High Current Visit: Yes (5) Sleep apnea SNOMED Code(s): 93832354 Code(s): G47.30 - SLEEP APNEA, UNSPECIFIED Status: Chronic Priority: High Current Visit: Yes (6) Edema of lower extremity SNOMED Code(s): 903240808 Code(s): R60.0 - LOCALIZED EDEMA Status: Chronic Priority: High Current Visit: Yes (7) Diabetes mellitus type 2 in obese SNOMED Code(s): 92919140 Code(s): E11.9 - TYPE 2 DIABETES MELLITUS WITHOUT COMPLICATIONS; E66.9 - OBESITY, UNSPECIFIED Status: Chronic Priority: High Current Visit: Yes (8) HTN, Essential hypertension SNOMED Code(s): 70602827 Code(s): I10 - ESSENTIAL (PRIMARY) HYPERTENSION Status: Chronic Priority : Medium Current Visit: Yes - Problem List Review Problem List Initiated/Reviewed/Updated: Yes - My Orders Last 24 Hours: My Active Orders 12/19/16 14:05 Accu Check [Blood Glucose Check, Bedside] [RC] DACANDBED 12/19/16 14:06 Consult to Diabetic Nurse Specialist [CONS] Routine Consult to Cool Roofing Installer [CONS] Routine 12/19/16 14:45 Rivaroxaban [Xarelto] 20 mg PO DAILY 12/19/16 17:00 Insulin Aspart [NovoLOG] See Protocol SUBCUT QIDACANDBED 12/19/16 21:00 Metoprolol Tartrate [Lopressor] 50 mg PO Q12HR 12/20/16 09:00 Furosemide [Lasix] 40 mg PO DAILY 12/20/16 14:08 Lisinopril [Prinivil] 10 mg PO DAILY 12/20/16 17:00 metFORMIN [Glucophage] 1,000 mg PO BIDMEALS 12/21/16 09:00 Fenofibrate Nanocrystallized [Tricor] 145 mg PO DAILY - Plan Plan:: Assessment/Plan: Acute: AMS/Memory Impairment - Likely 2/2 non-toxic - Suspected unintentional ingestion of multiple home maintenance medications - Patient lives alone - No Dementia but carries a hx/o Depression and CVA with residual memory impairment and left hand tremor - Cognitive Eval by [employer] and MMSE--moderate cognitive impairment with memory and attention; severe executive functioning deficity - TSH normal - Records rec'd from [place]---hx of paroxysmal a-fib, restart xarelto and ASA- telemetry -Will obtain MRI/MRA of brain, 2D echo, carotid US as no records available at [place] for any of these studies----Echo essentially WNL with EF of 55-60%, no valvular abnormalities, MRA with lt internal carotid plaque at 90% occlusion , carotid US with lt side to be up to 75% occlusion, right at 1-49% occlusion/ plaque. MRI of brain essentially unchanged from prior studies. Recommend consult with Dr. Valderrama, Neurosurgeon with [facility] in [place]--will discuss with patient and family today. Hypomagnesemia- -Replete and monitor daily -Pharmacy to dose Unintentional Ingestion of Non-Toxic Home Maintenance Medications - Unable to explain why - He currently altered Danger to Himself - Patient ingested multiple home medications Abdominal CT scan Findings - Fatty infiltration within the liver - Small cortical cyst - Umbilical hernia containing fat - Scattered degenerative change within the spine - Trans-pedicle screws at L4 and L5 Chronic: HTN HLD: Lipids abnormal, triglycerides >400. Will add tricor to zocor. CAD S/p PCI x1 stent 3 years Ago DM2--A1C, CDE, Accuchecks QID with SSI coverage--A1C 6.8, increase metformin to 1,000mg BID Peripheral Edema with Stasis Dermatitis and early skin ulcers--PT for wound care to eval and tx Gout hx KALEY--noncoompliant with CPAP, this alone may cause altered mental status if severe untreated KALEY Chronic Diarrhea w/ Hx/o Back Surgery OA/Muscle Spasm Hx/o CVA with residual memory impairment and left hand tremor Insomnia Umbilical Hernia Morbid Obesity with BMI of 42 Plan: Admit to Med-Surg With Tele Routine AM Labs PT/OT consult Thiamine daily supplement Diabetic and Heart healthy diet Resume Home Meds Dietary Consult for weight Management Aspiration/Seizure/Fall precautions SW/[id number] for d/c planning DVT/GI prophylax Additional orders as above Code status: Full Code Recommend NH placement patient is unable to take care himself. He is Morbidly Obese with some Memory Impairment from his hx/o CVA, Diabetes, and on blood thinner with Xarelto. He would not be safe to go back home. SW working with family for SNF placement.
[2016-12-20] MEDS: Lisinopril 10 MG Tab PO SCH (14:44)
[2016-12-20] MEDS: Simvastatin 40 MG Tab PO SCH (17:19)
[2016-12-20] MEDS: Acetaminophen/HYDROcodone 325-5 MG Tab PO PRN (17:48)
[2016-12-20] MEDS: Famotidine 20 MG Tab PO SCH (21:46)
[2016-12-21] MEDS: oxyCODONE 5 MG Tab PO SCH ×2 (03:28→09:26)
[2016-12-21] MEDS: Insulin Aspart 100 Units/ML 3 ML Pen SUBCUT SCH ×2 (06:20→12:04)
[2016-12-21] MEDS: metFORMIN 500 MG Tab PO SCH (06:20)
--- NOTE | 2016-12-21 08:01 | PCM.DCSUM1 ---
Discharge Summary - Hospital Course Free Text/Narrative:: This is a 61-year-old morbidly obese white male with past medical history of hypertension and hyperlipidemia, CAD status post stent placement 3 years ago, chronic diarrhea, chronic back pain, history of left back surgery, type 2 diabetes, peripheral edema, gout, KALEY, chronic OA, insomnia, and 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 Patient lives alone and it appears he may have unintentionally took multiple home medications. Patient is currently somewhat confused and his pertinent history of present illness differs from what was mentioned in ED. He tells me he was walking away from the kitchen after he got a soda drink when he lost his footing. He then tripped and fell to the floor landing on his left side. He denies any prodromal symptoms. He denied having issues with his blood sugar. He denies the possibility of ingesting accidentally his home medications. He states his brother brought him over to ED for evaluation. His initial workup in the emergency department shows an unremarkable CBC and CMP. His UA and UDS are both negative. abdominal CT scan report reads nothing acute identified. Left forearm x-ray report reads nothing acute is appreciated. Chest x-ray report reads heart size at the upper limits of normal. Upper mediastinum is normal. Nothing acute is appreciated. Head CT scan without contrast report reads minimal sinus findings felt to be incidental. Not acute intracranial abnormalities identified. Patient is being admitted for further observation related to altered mental status. He is full code. He had evaluation with MRI/MRA of brain, carotid US, echocardiogram which was unremarkable. Carotid US was with left sided stenosis noted, MRA was with abnormalities noted. He is s/p CVA by hx. He is noncompliant with CPAP which is also likely contributing to his fluctuating confusion/altered mental status. PLANT AND MACHINERY VALUER was consulted for cognitive evaluation which showed moderate to severe cognitive impairment. Xarelto was restarted for paroxysmal atrial fibrillation. He worked with PT/OT for strengthening. All therapies recommend SNF rehab stay. He is discharged to [facility] for rehab stay. - Discharge Data Discharge Date: 12/21/16 (admit date 12/18/16) Discharge Disposition: DC/Tfer to SNF 03 Condition: Good - Discharge Diagnosis/Problem(s) (1) Fall as cause of accidental injury at home as place of occurrence SNOMED Code(s): 37414338 ICD Code: W19.XXXA - UNSPECIFIED FALL, INITIAL ENCOUNTER; Y92.009 - UNSP PLACE IN UNSP NON-INSTITUT (PRIVATE) RESIDENCE PLACE Status: Acute Priority: High Qualifiers: Encounter type: initial encounter Qualified Code(s): W19.XXXA - Unspecified fall, initial encounter; Y92.009 - Unspecified place in unspecified non-institutional (private) residence as the place of occurrence of the external cause (2) Altered level of consciousness SNOMED Code(s): 5403489 ICD Code: R40.4 - TRANSIENT ALTERATION OF AWARENESS Status: Acute Priority: High (3) Carotid artery stenosis Status: Acute Priority: High Qualifiers: Laterality: left Qualified Code(s): I65.22 - Occlusion and stenosis of left carotid artery (4) Paroxysmal atrial fibrillation SNOMED Code(s): 317365246 ICD Code: I48.0 - PAROXYSMAL ATRIAL FIBRILLATION Status: Chronic Priority : High (5) Sleep apnea SNOMED Code(s): 16147550 ICD Code: G47.30 - SLEEP APNEA, UNSPECIFIED Status: Chronic Priority: High (6) Diabetes mellitus type 2 in obese SNOMED Code(s): 63862724 ICD Code: E11.9 - TYPE 2 DIABETES MELLITUS WITHOUT COMPLICATIONS; E66.9 - OBESITY, UNSPECIFIED Status: Chronic Priority: High (7) HTN, Essential hypertension SNOMED Code(s): 39758237 ICD Code: I10 - ESSENTIAL (PRIMARY) HYPERTENSION Status: Chronic Priority : Medium (8) Morbid obesity SNOMED Code(s): 768129549 ICD Code: E66.01 - MORBID (SEVERE) OBESITY DUE TO EXCESS CALORIES Status: Chronic Priority: High (9) HLD (hyperlipidemia) SNOMED Code(s): 17646939 ICD Code: E78.5 - HYPERLIPIDEMIA, UNSPECIFIED Status: Acute Priority: High Qualifiers: Hyperlipidemia type: mixed hyperlipidemia Qualified Code(s): E78.2 - Mixed hyperlipidemia (10) Edema of lower extremity SNOMED Code(s): 478791498 ICD Code: R60.0 - LOCALIZED EDEMA Status: Chronic Priority: High (11) History of CVA (cerebrovascular accident) SNOMED Code(s): 193091501 ICD Code: Z86.73 - PRSNL HX OF TIA (TIA), AND CEREB INFRC W/O RESID DEFICITS Status: Chronic Priority: High (12) Chronic low back pain SNOMED Code(s): 971997202 ICD Code: M54.5 - LOW BACK PAIN; G89.29 - OTHER CHRONIC PAIN Status: Chronic Priority: Medium Qualifiers: Back pain laterality: unspecified Sciatica presence: with sciatica Sciatica laterality: sciatica laterality unspecified Qualified Code(s): M54.40 - Lumbago with sciatica, unspecified side; G89.29 - Other chronic pain - Patient Summary/Data Operative Procedure(s) Performed: None Complications: None Consults: Consultations 12/18/16 19:38 Consult to Case Management [CONS] Routine Consult to Spiritual Care [CONS] Routine OT Evaluation and Treatment [CONS] Routine PT Evaluation and Treatment [CONS] Routine 12/19/16 14:06 Consult to Diabetic Nurse Specialist [CONS] Routine Consult to Data Management Engineer [CONS] Routine 12/19/16 15:19 Consult to Speech Language Pathology [[employer]ER Evaluation and Treatment] [CONS] Routine Labs Pending at D/C: None Recommended Follow-up Testing/Procedures: Patient Discharge Instructions: Follow up with Dr Valderrama, Neurosurgeon, at [facility]. They will call you or sister to schedule appointment Follow up with PCP, Dr. Lloyd within 5-7 days of discharge. Wear CPAP machine at night. PT/OT/ST to continue at [facility], for cognitive therapy. Check blood sugars 4 times daily at [facility] Daily morning weight Planned Operative Procedure(s) after DC: None Hospital Course: As above - Patient Instructions Diet: Heart Healthy Diet, Diabetic Diet Activity: As Tolerated (ambulate 4 times per day, PT/OT to continue at [facility]) Driving: Do Not Drive Showering/Bathing: May Shower Notify Provider of: Fever, Increased Pain, Swelling and Redness, Nausea and/or Vomiting - Discharge Plan Prescriptions/Med Rec: Metoprolol Tartrate [Lopressor] 50 mg PO Q12HR #60 tablet Fenofibrate Nanocrystallized [Tricor] 145 mg PO DAILY #30 tablet metFORMIN [Glucophage] 1,000 mg PO BIDMEALS #60 tablet Home Medications: Home Meds Allopurinol [Zyloprim] 100 mg PO DAILY 09/16/13 [History] Aspirin [Sofie Chewable Aspirin] 81 mg PO DAILY 09/16/13 [History] FLUoxetine HCl [Fluoxetine] 20 mg PO DAILY 09/16/13 [History] Ranitidine HCl [Zantac 75] 75 mg PO BID 09/16/13 [History] Simvastatin [Zocor] 40 mg PO QPM 09/16/13 [History] Tamsulosin [Flomax] 0.4 mg PO DAILY 09/16/13 [History] Zolpidem [Ambien] 5 mg PO BEDTIME PRN 09/16/13 [History] Acetaminophen [Tylenol Arthritis Pain] 1,300 mg PO BID 07/17/15 [History] Ibuprofen 600 mg PO Q12H PRN 07/17/15 [History] Multivit with Min #53/FA/K/Q10 [Dekas Plus Softgel] 1 tab PO DAILY 07/17/15 [ History] Rivaroxaban [Xarelto] 20 mg PO DAILY #30 tablet 07/21/15 [Rx] Divalproex Sodium [Depakote ER] 1,250 mg PO DAILY 09/20/16 [History] Gabapentin [Neurontin] 200 mg PO ACBREAKFAST 09/20/16 [History] Insulin Glarg,Human.Rec.Analog [LantUS Solostar] 35 units SUBCUT DAILY 09/20/16 [History] oxyCODONE HCl [Roxicodone] 5 mg PO Q6H 09/20/16 [History] Cyclobenzaprine [Flexeril] 10 mg PO BID PRN 12/18/16 [History] Melatonin 5 mg PO BEDTIME PRN 12/18/16 [History] SUMAtriptan [Imitrex] 50 mg PO BID PRN 12/18/16 [History] Fluticasone Propionate [Flonase] 2 sprays NASBOTH DAILY 12/19/16 [History] Furosemide 40 mg PO DAILY 12/19/16 [History] Gabapentin [Neurontin] 100 mg PO ACLUNCH 12/19/16 [History] Lisinopril 10 mg PO DAILY 12/19/16 [History] oxyCODONE HCl/Acetaminophen [Percocet 5-325 mg Tablet] 1 - 2 each PO Q4HR PRN [History] traZODone HCl [Trazodone HCl] 100 mg PO DAILY 12/19/16 [History] traZODone HCl [Trazodone HCl] 200 mg PO BEDTIME 12/19/16 [History] Fenofibrate Nanocrystallized [Tricor] 145 mg PO DAILY #30 tablet 12/21/16 [Rx] Metoprolol Tartrate [Lopressor] 50 mg PO Q12HR #60 tablet 12/21/16 [Rx] metFORMIN [Glucophage] 1,000 mg PO BIDMEALS #60 tablet 12/21/16 [Rx] Patient Handouts: Type 2 Diabetes Mellitus, Adult, Cholesterol, Evum-xp-Molh, Fall Prevention in the Home, Fhuf-av-Jfof, Carotid Artery Disease, Sleep Apnea, Lych-bz-Cldg, Food Choices to Lower Your Triglycerides Forms: ED Department Discharge Referrals: Abisai Lloyd MD [Primary Care Provider] - - Discharge Summary/Plan Comment DC Time >30 min.: Yes (40 min) - General Info Date of Service: 12/21/16 Admission Dx/Problem (Free Text: Admission Diagnosis/Problem Admission Diagnosis/Problem Altered level of consciousness Gordon is seen with the this morning. He is alert, pleasant but continues to have difficulty tracking and completing his thought or sentence; confusion seems to be worse in the mornings. Functional Status: Reports: Pain Controlled, Tolerating Diet, Ambulating, Urinating. Denies: New Symptoms - Review of Systems General: Reports: No Symptoms, Weakness (generalized; at baseline or better) HEENT: Reports: No Symptoms Pulmonary: Reports: No Symptoms Cardiovascular: Reports: No Symptoms. Denies: Chest Pain, Palpitations, Dyspnea on Exertion Gastrointestinal: Reports: No Symptoms. Denies: Diarrhea, Nausea, Vomiting Genitourinary: Reports: No Symptoms. Denies: Frequency, Incontinence, Retention Musculoskeletal: Reports: Back Pain Skin: Reports: No Symptoms Neurological: Reports: Headache (occasional intermittent headaches), Numbness ( to legs intermittently ), Paresthesia (to legs intermittently), Tingling (to legs intermittently), Trouble Speaking (expressive aphasia intermittently--- patient denies that he has trouble finding words or getting words out but is not able to complete sentences or follow conversations most of the time. ), Weakness. Denies: Confusion (denies that he feels confusion or intermittent confusion), Dizziness Psychiatric: Reports: No Symptoms. Denies: Anxiety, Agitation - Patient Data Vitals - Most Recent: Last Vital Signs Temp 97.2 F 12/21/16 02:46 Pulse 69 12/21/16 02:46 Resp 14 12/21/16 02:46 BP 109/52 L 12/21/16 02:46 Pulse Ox 97 12/21/16 02:46 Weight - Most Recent: 285 lb 4.8 oz I&O - Last 24 hours: Intake & Output 12/20/16 12/21/16 12/21/16 22:59 06:59 14:59 Intake Total 620 600 Output Total 220 Balance 400 600 Lab Results - Last 24 hrs: Laboratory Results - last 24 hr 12/20/16 12/20/16 12/20/16 Range/Units 11:48 16:42 21:27 POC Glucose 200 H 122 H 118 H (80-115) mg/dL 12/21/16 Range/Units 05:56 POC Glucose 112 (80-115) mg/dL Med Orders - Current: Current Medications Acetaminophen (Tylenol) 650 mg PO Q4H PRN PRN Reason: Pain (Mild 1-3)/fever Hydrocodone Bitart/Acetaminophen ([place] 325-5 Mg) 1 tab PO Q4H PRN PRN Reason: Pain (moderate 4-6) Last Admin: 12/20/16 17:48 Dose: 1 tab Albuterol/Ipratropium (Duoneb 3.0-0.5 Mg/3 Ml) 3 ml NEB Q4H PRN PRN Reason: Shortness Of Breath/wheezing Aspirin (Aspirin) 81 mg PO DAILY [facility] [place] Last Admin: 12/20/16 09:33 Dose: 81 mg Bisacodyl (Dulcolax) 5 mg PO DAILY PRN PRN Reason: Constipation Divalproex Sodium (Depakote) 1,000 mg PO DAILY [facility] [place] Last Admin: 12/20/16 09:37 Dose: 1,000 mg Divalproex Sodium (Divalproex Sodium) 250 mg PO DAILY [facility] Last Admin: 12/20/16 09:32 Dose: 250 mg Docusate Sodium (Colace) 100 mg PO BID PRN PRN Reason: Constipation Famotidine (Pepcid) 20 mg PO BEDTIME [facility] [place] Last Admin: 12/20/16 21:46 Dose: 20 mg Fenofibrate (Tricor) 145 mg PO DAILY [facility] Flunisolide (Nasalide Nasal Edward) 0 ml NASBOTH Q12H [facility] [place] Last Admin: 12/20/16 21:46 Dose: 2 spray Fluoxetine HCl (Prozac) 20 mg PO DAILY [facility] [place] Last Admin: 12/20/16 09:32 Dose: 20 mg Furosemide (Lasix) 40 mg PO DAILY [facility] [place] Last Admin: 12/20/16 09:37 Dose: 40 mg Gabapentin (Neurontin) 200 mg PO BID [facility] [place] Last Admin: 12/20/16 21:46 Dose: 200 mg Promethazine HCl 12.5 mg/ (Sodium Chloride) 50.5 mls @ 100 mls/hr IV Q6H PRN PRN Reason: Nausea/Vomiting Insulin Aspart (Novolog) 0 unit SUBCUT QIDACANDBED [facility] [place] PRN Reason: Protocol Last Admin: 12/21/16 06:20 Dose: Not Given Insulin Detemir (Levemir) 0 unit SUBCUT BID [facility] [place] Last Admin: 12/20/16 21:47 Dose: 17.5 units Lisinopril (Prinivil) 10 mg PO DAILY [facility] [place] Last Admin: 12/20/16 14:44 Dose: 10 mg Lorazepam (Ativan) 1 mg IV Q6H PRN PRN Reason: Anxiety Stop: 12/21/16 23:59 Last Admin: 12/19/16 21:04 Dose: 1 mg Magnesium Sulfate (Pharmacy To Dose - Magnesium Replacement) 1 dose .XX DAILY [facility] [place] Last Admin: 12/20/16 10:00 Dose: Not Given Metformin HCl (Glucophage) 1,000 mg PO BIDMEALS [facility] [place] Last Admin: 12/21/16 06:20 Dose: 1,000 mg Metoprolol Tartrate (Lopressor) 50 mg PO Q12HR [facility] [place] Last Admin: 12/20/16 21:45 Dose: 50 mg Multivitamins (Thera) 1 each PO DAILY [facility] [place] Last Admin: 12/20/16 09:32 Dose: 1 each Ondansetron HCl (Zofran) 4 mg IV Q6H PRN PRN Reason: Nausea/Vomiting Oxycodone HCl (Oxycodone) 5 mg PO Q6H [facility] [place] Last Admin: 12/21/16 03:28 Dose: 5 mg Melatonin [Melatonin (] 5 Mg) 0 each PO BEDTIME PRN PRN Reason: Insomnia Polyethylene Glycol (Miralax) 17 gm PO DAILY PRN PRN Reason: Constipation Potassium Chloride (Pharmacy To Dose - Potassium Replacement) 1 dose .XX DAILY [facility] [place] Last Admin: 12/20/16 10:00 Dose: Not Given Rivaroxaban (Xarelto) 20 mg PO DAILY [facility] [place] Last Admin: 12/20/16 09:37 Dose: 20 mg Senna/Docusate Sodium (Senna Plus) 1 tab PO BID PRN PRN Reason: Constipation Simvastatin (Zocor) 40 mg PO QPM [facility] [place] Last Admin: 12/20/16 17:19 Dose: 40 mg Sodium Chloride (Saline Flush) 10 ml FLUSH ASDIRECTED PRN PRN Reason: Keep Vein Open Last Admin: 12/18/16 13:39 Dose: 10 ml Sumatriptan Succinate (Imitrex) 50 mg PO BID PRN PRN Reason: Headache Tamsulosin HCl (Flomax) 0.4 mg PO DAILY [facility] [place] Last Admin: 12/20/16 09:32 Dose: 0.4 mg Zolpidem Tartrate (Ambien) 5 mg PO BEDTIME PRN PRN Reason: Insomnia Discontinued Medications Hydromorphone HCl (Dilaudid) 0.25 mg IVPUSH Q2H PRN PRN Reason: Pain (severe 7-10) Hydromorphone HCl (Dilaudid) 0.25 mg IVPUSH Q2H PRN PRN Reason: Pain (severe 7-10) Sodium Chloride (Normal Saline) 1,000 mls @ 250 mls/hr IV ASDIRECTED [facility] [place] Last Admin: 12/18/16 13:39 Dose: 250 mls/hr Thiamine HCl 200 mg/ Sodium (Chloride) 102 mls @ 50 mls/hr IV ONETIME ONE Stop: 12/18/16 23:25 Last Admin: 12/18/16 22:18 Dose: 50 mls/hr Magnesium Sulfate 2 gm/ Premix 50 mls @ 25 mls/hr IV ONETIME ONE Stop: 12/19/16 13:14 Last Admin: 12/19/16 12:03 Dose: 25 mls/hr Iopamidol (Isovue-300 (61%)) 150 ml IVPUSH ONETIME ONE Stop: 12/18/16 15:03 Last Admin: 12/18/16 15:26 Dose: 125 ml Metformin HCl (Glucophage) 500 mg PO BIDMEALS [facility] [place] Last Admin: 12/20/16 06:28 Dose: 500 mg Metoprolol Tartrate (Lopressor) 100 mg PO BID [facility] [place] Last Admin: 12/19/16 09:56 Dose: 100 mg Non-Formulary Medication (Rivaroxaban [Xarelto]) 20 mg PO DAILY [facility] [place] Pneumococcal Polyvalent Vaccine (Pneumovax 23) 0.5 ml IM .ONCE ONE Stop: 12/19/16 01:13 Sodium Chloride (Saline Flush) 10 ml FLUSH ONETIME ONE Stop: 12/18/16 15:03 Last Admin: 12/18/16 15:27 Dose: 10 ml Temazepam (Restoril) 15 mg PO BEDTIME PRN PRN Reason: Sleep - Exam Quality Assessment: Reports: DVT Prophylaxis General: Reports: Alert, Oriented, Cooperative, No Acute Distress, Other (very flat affect) HEENT: Reports: Pupils Equal, EOMI, Mucous Membr. Moist/[place] Neck: Reports: Supple Lungs: Reports: Clear to Auscultation, Normal Respiratory Effort, Decreased Breath Sounds (decreased) Cardiovascular: Reports: Regular Rate, Regular Rhythm, Other (distant heart tones) GI/Abdominal Exam: Normal Bowel Sounds, Soft, Non-Tender, No Organomegaly, Other (palpable ventral hernia, nontender) (Male) Exam: Deferred Rectal (Males) Exam: Deferred Back Exam: Reports: Other (surgical scars present to low back) Extremities: Other (venous insufficiency changes to LE bilat; small scabbed area to left mid barron, right lateral aspect of foot. ) Skin: Reports: Other (as noted above under extremity) Neurological: Reports: Other (expressive aphasia; unable to follow in conversation if not asked direct yes or no questions. ) Psy/Mental Status: Reports: Alert, Other (very flat affect; emotionless) *Q Meaningful Use (DIS) - VTE *Q VTE Criteria *Q: - Stroke *Q Stroke Criteria *Q: - AMI *Q AMI Criteria *Q:
[2016-12-21] MEDS ORDERED: Fenofibrate Nanocrystallized 145 MG Tab PO SCH (09:00)
[2016-12-21] MEDS: Divalproex Sodium Delayed-Release 250 MG Tab.CR PO SCH (09:25)
[2016-12-21] MEDS: Aspirin 81 MG Tab.Chew PO SCH (09:25)
[2016-12-21] MEDS: Gabapentin 100 MG Cap PO SCH (09:25)
[2016-12-21] MEDS: Tamsulosin 0.4 MG Cap.ER PO SCH (09:25)
[2016-12-21] MEDS: Divalproex Sodium Delayed-Release 500 MG Tab.CR PO SCH (09:25)
[2016-12-21] MEDS: FLUoxetine 20 MG Cap PO SCH (09:26)
[2016-12-21] MEDS: Multivitamins,Therapeutic Tab PO SCH (09:26)
[2016-12-21] MEDS: Lisinopril 10 MG Tab PO SCH (09:26)
[2016-12-21] MEDS: Furosemide 40 MG Tab PO SCH (09:27)
[2016-12-21] MEDS: Rivaroxaban 10 MG Tab PO SCH (09:27)
[2016-12-21] MEDS: Insulin Detemir 100 Units/ML 3 ML Pen SUBCUT SCH (09:27)
[2016-12-21] MEDS: Metoprolol Tartrate 50 MG Tab PO SCH (09:55)
[2016-12-21 12:22] VITALS: BP 127/60
[2016-12-21] MEDS ORDERED: Pneumococcal Polyvalent-23 Vaccine 0.5 ML SDV IM ONE (12:59)
== END 2016-12-21 13:16 | DRG 918 ==
LOC: JD.ED 11:52 → JD.MS 17:21
PROVIDERS: ADMIT Internal Medicine; ATTEND Internal Medicine
PROC: 3E0234Z Introduction of Serum, Toxoid and Vaccine into Muscle, Percutaneous Approach (ICD-10-PCS; principal; 2016-12-21)
DX: T50.901A Poisoning by unspecified drugs, medicaments and biological substances, accidental (unintentional), initial encounter (principal); R41.82 Altered mental status, unspecified; Z68.41 Body mass index [BMI] 40.0-44.9, adult; I48.91 Unspecified atrial fibrillation; R40.4 Transient alteration of awareness; R10.12 Left upper quadrant pain; R07.89 Other chest pain; S80.212A Abrasion, left knee, initial encounter; W18.30XA Fall on same level, unspecified, initial encounter; I25.2 Old myocardial infarction; Y92.019 Unspecified place in single-family (private) house as the place of occurrence of the external cause; I65.22 Occlusion and stenosis of left carotid artery; M54.9 Dorsalgia, unspecified; F32.9 Major depressive disorder, single episode, unspecified; I48.0 Paroxysmal atrial fibrillation; G47.33 Obstructive sleep apnea (adult) (pediatric); E11.9 Type 2 diabetes mellitus without complications; Z86.73 Personal history of transient ischemic attack (TIA), and cerebral infarction without residual deficits; E66.01 Morbid (severe) obesity due to excess calories; E78.2 Mixed hyperlipidemia; R60.0 Localized edema; I69.811 Memory deficit following other cerebrovascular disease; G89.29 Other chronic pain; M54.40 Lumbago with sciatica, unspecified side; I10 Essential (primary) hypertension; I25.10 Atherosclerotic heart disease of native coronary artery without angina pectoris; Z95.5 Presence of coronary angioplasty implant and graft; Z79.899 Other long term (current) drug therapy; Z79.4 Long term (current) use of insulin; Z79.01 Long term (current) use of anticoagulants; Z23 Encounter for immunization
CPT/HCPCS: 36415; 70450; 71010; 73090; 74177; 80053; 80306; 81001; 82962; 83690; 84443; 84484; 85025; 85610; 85730; 93005; 96360; 96361; 99285; J7040; J7050 ×2; Q9967; 70544; 70544-26; 70551; 70551-26; 80048; 80061; 83036; 83735; 86140; 90732; 93306; 93880; 93880-26; 96125-GN; 97161-GP; 97165-GO; 97530-GO; 97532-GN; 99284; A9270-GY; G0009; J1815-GY; J2060; J3411; J3475; J7030

== ENCOUNTER 2017-02-22 11:38 | Inpatient (IN) | payer OTHER, MEDICARE ==
[2017-02-22] MEDS ORDERED: Sodium Chloride 0.9% 10 ML Syringe FLUSH PRN (12:05)
--- NOTE | 2017-02-22 12:09 | EDM.PDOC ---
ED HPI GENERAL MEDICAL PROBLEM - General Chief Complaint: General Stated Complaint: Renal failure Time Seen by Provider: 02/22/17 11:50 Source of Information: Reports: Patient, Old Records (sent by Bridgett ), RN Notes Reviewed History Limitations: Reports: No Limitations - History of Present Illness INITIAL COMMENTS - FREE TEXT/NARRATIVE: 61 year old male is brought to the ED today by his friend. He is a GUY patient who is confused at baseline and is unable to provide much history. He is unable to tell me why he is here. He does not answer questions appropriately. His friend said that he was asked to bring the patient here because of renal failure. He had an appointment scheduled for today with his GUY doctor in [place]. However, the staff at [facility] decided to have him come to the ER rather than travel to [place]. NO other history is available at this time. Labs were sent with the patient. Labs drawn on 02/20/17: CBC: WBC 5.9, RBC 3.99, Hgb 12.4, Hct 40. CMP: Glu 98, BUN 28, creatinine 2.6, Na 142, K 3.9, Chloride 99, Co2 33, anion gap 14, AST 14, ALT 24, bilirubin 0.3. CK 27 BNP: 270 Back Pain Score (Numeric/FACES): 8 - Related Data Allergies Allergy/AdvReac Type Severity Reaction Status Date / Time No Known Allergies Allergy Verified 02/22/17 11:49 Home Meds: Home Meds Allopurinol [Zyloprim] 100 mg PO DAILY 09/16/13 [History] Aspirin [Sofie Chewable Aspirin] 81 mg PO DAILY 09/16/13 [History] FLUoxetine HCl [Fluoxetine] 20 mg PO DAILY 09/16/13 [History] Ranitidine HCl [Zantac 75] 75 mg PO BID 09/16/13 [History] Tamsulosin [Flomax] 0.4 mg PO DAILY 09/16/13 [History] Acetaminophen [Tylenol Arthritis Pain] 2 tab PO BID PRN 07/17/15 [History] Ibuprofen 600 mg PO Q12H PRN 07/17/15 [History] Multivit with Min #53/FA/K/Q10 [Dekas Plus Softgel] 1 tab PO DAILY 07/17/15 [ History] Rivaroxaban [Xarelto] 20 mg PO DAILY #30 tablet 07/21/15 [Rx] Divalproex Sodium [Depakote ER] 1,250 mg PO DAILY 09/20/16 [History] oxyCODONE HCl [Roxicodone] 5 mg PO Q6H 09/20/16 [History] Cyclobenzaprine [Flexeril] 10 mg PO BID PRN 12/18/16 [History] Melatonin 5 mg PO BEDTIME PRN 12/18/16 [History] SUMAtriptan [Imitrex] 50 mg PO BID PRN 12/18/16 [History] Fluticasone Propionate [Flonase] 2 sprays NASBOTH DAILY 12/19/16 [History] Furosemide 40 mg PO DAILY 12/19/16 [History] Gabapentin [Neurontin] 100 mg PO BID 12/19/16 [History] Lisinopril 10 mg PO DAILY 12/19/16 [History] oxyCODONE HCl/Acetaminophen [Percocet 5-325 mg Tablet] 1 tab PO Q4HR PRN [History] traZODone HCl [Trazodone HCl] 100 mg PO DAILY 12/19/16 [History] traZODone HCl [Trazodone HCl] 200 mg PO BEDTIME 12/19/16 [History] Fenofibrate Nanocrystallized [Tricor] 145 mg PO DAILY #30 tablet 12/21/16 [Rx] Metoprolol Tartrate [Lopressor] 50 mg PO Q12HR #60 tablet 12/21/16 [Rx] metFORMIN [Glucophage] 1,000 mg PO BIDMEALS #60 tablet 12/21/16 [Rx] Insulin Glargine,Hum.Rec.Anlog [Basaglar Kwikpen U-100] 27 units INJECT DAILY [History] atorvaSTATin [Lipitor] 20 mg PO BEDTIME 02/22/17 [History] Past Medical History Cardiovascular History: Reports: MA, Stents Other Cardiovascular History: one stent Respiratory History: Reports: Sleep Apnea Gastrointestinal History: Reports: Chronic Diarrhea Genitourinary History: Reports: Acute Renal Failure Other Genitourinary History: ARF after severe tooth infection ?? per patient report Musculoskeletal History: Reports: Back Pain, Chronic, Other (See Below) Other Musculoskeletal History: left back fusion Neurological History: Reports: CVA Other Neuro History: left hand tremor and memory impairment Psychiatric History: Reports: Depression Other Psychiatric History: insomnia Endocrine/Metabolic History: Reports: Diabetes, Type II - Infectious Disease History Infectious Disease History: Reports: Chicken Pox, Measles - Past Surgical History HEENT Surgical History: Reports: Other (See Below) Other HEENT Surgeries/Procedures: oral infection ? septic GI Surgical History: Reports: Hernia Repair/Other Neurological Surgical History: Reports: Spinal Fusion Musculoskeletal Surgical History: Reports: Other (See Below) Dermatological Surgical History: Reports: None Social & Family History - Family History HEENT: Reports: None Cardiac: Reports: MA, Stent, Other (See Below) Other Cardiac Family History: Unsure of exact family history GI: Reports: Cholelithiasis Musculoskeletal: Reports: Gout Neurological: Reports: Alzheimers Disease Endocrine/Metabolic: Reports: Diabetes, type II Oncologic: Reports: Colon - Tobacco Use Smoking Status *Q: Never Smoker Second Hand Smoke Exposure: No - Caffeine Use Caffeine Use: Reports: Soda - Alcohol Use Days Per Week of Alcohol Use: 0 - Recreational Drug Use Recreational Drug Use: No - Living Situation & Occupation Living situation: Reports: Single Occupation: Disabled ED ROS GENERAL - Review of Systems Review Of Systems: Unable To Obtain (due to confusion) ED EXAM, GENERAL - Physical Exam Exam: See Below Exam Limited By: No Limitations General Appearance: Alert, No Apparent Distress, Obese, Other (confused ) Eye Exam: Bilateral Eye: EOMI, PERRL Respiratory/Chest: No Respiratory Distress, Lungs Clear, No Accessory Muscle Use , Chest Non-Tender, Decreased Breath Sounds. No: Rales, Rhonchi, Wheezing Cardiovascular: Normal Peripheral Pulses, Regular Rate, Rhythm, No Murmur, Other (2-3+ lower extremity edema ) GI/Abdominal: Normal Bowel Sounds, Non-Tender, No Organomegaly, Distended (mild ). No: Guarding, Rigid Neurological: Alert, Inattentive, Confused, Disoriented Psychiatric: Flat Affect Skin Exam: Warm, Dry, Intact EKG INTERPRETATION EKG Date: 02/22/17 Time: 12:34 Rhythm: NSR Rate (Beats/Min): 68 [place]: Normal P-Wave: Present QRS: Normal ST-T: Elevated QT: Normal EKG Interpretation Comments: EKG read by Dr. Campbell. ST elevation is appreciated on previous EKD from December of this year. No acute changes. Course - Vital Signs Last Recorded V/S: Last Vital Signs Temp 97.8 F 02/22/17 11:50 Pulse 73 02/22/17 11:50 Resp 20 02/22/17 11:50 BP 118/63 02/22/17 11:50 Pulse Ox 93 L 02/22/17 11:50 - Orders/Labs/Meds Orders: Active Orders 24 hr Category Date Time Status EKG Documentation Completion [RC] ASDIRECTED Care 02/22/17 12:06 Active Peripheral IV Care [RC] . DIRECTED Care 02/22/17 12:06 Active Sodium Chloride 0.9% [Saline Flush] Med 02/22/17 12:05 Active 10 ml FLUSH ASDIRECTED PRN Peripheral IV Insertion Adult [OM.PC] Stat Oth 02/22/17 12:06 Ordered EKG 12 Lead [EK] Stat Ther 02/22/17 12:06 Ordered Medication Orders Sodium Chloride (Saline Flush) 10 ml FLUSH ASDIRECTED PRN PRN Reason: Keep Vein Open Last Admin: 02/22/17 12:34 Dose: 10 ml Labs: Laboratory Tests 02/22/17 02/22/17 02/22/17 Range/Units 12:30 12:40 12:40 WBC 5.87 (4.23-9.07) K/mm3 RBC 3.78 L (4.63-6.08) M/mm3 Hgb 11.6 L (13.7-17.5) gm/L Hct 36.7 L (40.1-51.0) % MCV 97.1 H (79.0-92.2) fl MCH 30.7 (25.7-32.2) pg MCHC 31.6 L (32.2-35.5) g/dl RDW Std Deviation 45.2 H (35.1-43.9) fL Plt Count 241 (163-337) K/mm3 MPV 10.9 (9.4-12.3) fl Neutrophils % (Manual) 70 H (40-60) % Band Neutrophils % 0 (0-10) % Lymphocytes % (Manual) 23 (20-40) % Atypical Lymphs % 0 % Monocytes % (Manual) 3 (2-10) % Eosinophils % (Manual) 3 (0.8-7.0) % Basophils % (Manual) 1 (0.2-1.2) Platelet Estimate Adequate RBC Morph Comment Normal Sodium 141 (136-145) mEq/L Potassium 4.6 (3.5-5.1) mEq/L Chloride 102 (98-107) mEq/L Carbon Dioxide 29 (21-32) mEq/L Anion Gap 14.6 (5-15) BUN 47 H (7-18) mg/dL Creatinine 3.6 H (0.7-1.3) mg/dL Est Cr Clr Drug Dosing 22.95 mL/min Estimated GFR (MDRD) 17 (>60) mL/min BUN/Creatinine Ratio 13.1 L (14-18) Glucose 98 (80-115) mg/dL Calcium 8.4 L (8.5-10.1) mg/dL Total Bilirubin 0.3 (0.2-1.0) mg/dL AST 16 (15-37) U/L ALT 17 (16-63) U/L Alkaline Phosphatase 38 L (46-116) U/L Troponin I < 0.017 (0.00-0.056) ng/mL NT-Pro-B Natriuret Pep 398 H (0-125) pg/mL Total Protein 6.2 L (6.4-8.2) g/dl Albumin 3.1 L (3.4-5.0) g/dl Globulin 3.1 gm/dL Albumin/Globulin Ratio 1.0 (1-2) Urine Color (Yellow) Urine Appearance (Clear) Urine pH (5.0-8.0) Ur Specific [place] (1.005-1.030) Urine Protein (Negative) Urine Glucose (UA) (Negative) Urine Ketones (Negative) Urine Occult Blood (Negative) Urine Nitrite (Negative) Urine Bilirubin (Negative) Urine Urobilinogen (0.2-1.0) Ur Leukocyte Esterase (Negative) Urine RBC (0-5) /hpf Urine WBC (0-5) /hpf Ur Epithelial Cells (0-5) /hpf Urine Bacteria (FEW) /hpf Urine Mucus (FEW) /hpf Urine Opiates Screen (NEGATIVE) Ur Buprenorphine Scrn (NEGATIVE) Ur Oxycodone Screen (NEGATIVE) Urine Methadone Screen (NEGATIVE) Ur Propoxyphene Screen (NEGATIVE) Acetaminophen (10-30) ug/mL Ur Barbiturates Screen (NEGATIVE) Ur Tricyclics Screen (NEGATIVE) Ur Phencyclidine Scrn (NEGATIVE) Ur Amphetamine Screen (NEGATIVE) U Methamphetamines Scrn (NEGATIVE) U Benzodiazepines Scrn (NEGATIVE) U Cocaine Metab Screen (NEGATIVE) U Marijuana (THC) Screen (NEGATIVE) Ethyl Alcohol (0.00) gm% 02/22/17 02/22/17 02/22/17 Range/Units 12:40 14:01 14:01 WBC (4.23-9.07) K/mm3 RBC (4.63-6.08) M/mm3 Hgb (13.7-17.5) gm/L Hct (40.1-51.0) % MCV (79.0-92.2) fl MCH (25.7-32.2) pg MCHC (32.2-35.5) g/dl RDW Std Deviation (35.1-43.9) fL Plt Count (163-337) K/mm3 MPV (9.4-12.3) fl Neutrophils % (Manual) (40-60) % Band Neutrophils % (0-10) % Lymphocytes % (Manual) (20-40) % Atypical Lymphs % % Monocytes % (Manual) (2-10) % Eosinophils % (Manual) (0.8-7.0) % Basophils % (Manual) (0.2-1.2) Platelet Estimate RBC Morph Comment Sodium (136-145) mEq/L Potassium (3.5-5.1) mEq/L Chloride (98-107) mEq/L Carbon Dioxide (21-32) mEq/L Anion Gap (5-15) BUN (7-18) mg/dL Creatinine (0.7-1.3) mg/dL Est Cr Clr Drug Dosing mL/min Estimated GFR (MDRD) (>60) mL/min BUN/Creatinine Ratio (14-18) Glucose (80-115) mg/dL Calcium (8.5-10.1) mg/dL Total Bilirubin (0.2-1.0) mg/dL AST (15-37) U/L ALT (16-63) U/L Alkaline Phosphatase (46-116) U/L Troponin I (0.00-0.056) ng/mL NT-Pro-B Natriuret Pep (0-125) pg/mL Total Protein (6.4-8.2) g/dl Albumin (3.4-5.0) g/dl Globulin gm/dL Albumin/Globulin Ratio (1-2) Urine Color Yellow (Yellow) Urine Appearance Clear (Clear) Urine pH 5.5 (5.0-8.0) Ur Specific [place] 1.025 (1.005-1.030) Urine Protein Negative (Negative) Urine Glucose (UA) Negative (Negative) Urine Ketones Negative (Negative) Urine Occult Blood Negative (Negative) Urine Nitrite Negative (Negative) Urine Bilirubin Negative (Negative) Urine Urobilinogen 0.2 (0.2-1.0) Ur Leukocyte Esterase Negative (Negative) Urine RBC Not seen (0-5) /hpf Urine WBC 0-5 (0-5) /hpf Ur Epithelial Cells 5-10 H (0-5) /hpf Urine Bacteria Not seen (FEW) /hpf Urine Mucus Not seen (FEW) /hpf Urine Opiates Screen Negative (NEGATIVE) Ur Buprenorphine Scrn Negative (NEGATIVE) Ur Oxycodone Screen Presumptive positive H (NEGATIVE) Urine Methadone Screen Negative (NEGATIVE) Ur Propoxyphene Screen Negative (NEGATIVE) Acetaminophen 0 L (10-30) ug/mL Ur Barbiturates Screen Negative (NEGATIVE) Ur Tricyclics Screen Negative (NEGATIVE) Ur Phencyclidine Scrn Negative (NEGATIVE) Ur Amphetamine Screen Negative (NEGATIVE) U Methamphetamines Scrn Negative (NEGATIVE) U Benzodiazepines Scrn Negative (NEGATIVE) U Cocaine Metab Screen Negative (NEGATIVE) U Marijuana (THC) Screen Negative (NEGATIVE) Ethyl Alcohol 0.00 (0.00) gm% Meds: Medications Generic Name Dose Route Start Last Admin Trade Name Freq PRN Reason Stop Dose Admin Sodium Chloride 10 ml 02/22/17 12:05 02/22/17 12:34 Saline Flush FLUSH 10 ml ASDIRECTED PRN Administration Keep Vein Open Discontinued Medications Generic Name Dose Route Start Last Admin Trade Name Freq PRN Reason Stop Dose Admin Sodium Chloride 500 mls @ 999 mls/hr 02/22/17 13:33 02/22/17 13:39 Normal Saline IV 02/22/17 14:03 999 mls/hr ONETIME ONE Administration Sodium Chloride Confirm 02/22/17 13:34 02/22/17 13:40 Normal Saline Administered 02/22/17 13:35 Not Given Dose 1,000 mls @ as directed .ROUTE .STK-MED ONE - Re-Assessments/Exams Free Text/Narrative Re-Assessment/Exam: Portable chest x-ray reveals cardiomegaly. No acute infiltrates or effusions. CBC reveals normal WBC. H&H is 11 and 36. CMP reveals BUN 47 and creatinine of 3.6. Otherwise unremarkable. Troponin is WNL. BNP is 398. Reviewed the patient's previous visits. In September of this year, he was diagnosed with ARF with a creatinine of 6. He was subsequently sent to [facility]. During his visit in December his kidney function was normal. 02/22/17 13:50 The patient's BP is labile, mostly in the low 100s systolic but does drop into the 70s and 80s at times. Will give 500ml NS bolus. Spoke to Dr. Alvarado. Will proceed with altered mental status workup including head CT, acetaminophen, ETOH, and UDS. Plan will be to admit the patient pending further workup in the ED. 02/22/17 15:45 UDS is positive for oxycodone, otherwise negative. ETOH is 0. Acetaminophen is 0. Head CT is negative for acute findings. Updated Dr. Alvarado. Will admit patient to inpatient status for ARF and altered mental status. Departure - Departure Time of Disposition: 15:53 Disposition: Admitted As Inpatient 66 Condition: Fair Clinical Impression: Altered level of consciousness Acute renal failure Qualifiers: Acute renal failure type: unspecified Qualified Code(s): N17.9 - Acute kidney failure, unspecified - Discharge Information Referrals: Abisai Lloyd MD [Primary Care Provider] - Forms: ED Department Discharge - My Orders Last 24 Hours: My Active Orders 02/22/17 12:05 Sodium Chloride 0.9% [Saline Flush] 10 ml FLUSH ASDIRECTED PRN 02/22/17 12:06 EKG Documentation Completion [RC] ASDIRECTED Peripheral IV Care [RC] . DIRECTED Peripheral IV Insertion Adult [OM.PC] Stat EKG 12 Lead [EK] Stat - Assessment/Plan Last 24 Hours: My Active Orders 02/22/17 12:05 Sodium Chloride 0.9% [Saline Flush] 10 ml FLUSH ASDIRECTED PRN 02/22/17 12:06 EKG Documentation Completion [RC] ASDIRECTED Peripheral IV Care [RC] . DIRECTED Peripheral IV Insertion Adult [OM.PC] Stat EKG 12 Lead [EK] Stat
[2017-02-22] MEDS ORDERED: Sodium Chloride 0.9% 500 ML IV ONE (13:33)
[2017-02-22] MEDS ORDERED: Sodium Chloride 0.9% 1,000 ML ONE (13:34)
--- NOTE | 2017-02-22 14:17 | CR ---
Chest: Portable view of the chest was obtained. Comparison: Prior chest x-ray of 12/18/16. Heart size and mediastinum are within normal limits for portable technique. Lungs are clear with no acute infiltrates. Bony structures are grossly intact. Impression: 1. Nothing acute is appreciated on portable chest x-ray. Diagnostic code #1
--- NOTE | 2017-02-22 15:02 | CT ---
Head CT Technique: Multiple axial sections through the brain were obtained. Intravenous contrast was not utilized. Comparison: Previous MRI brain of 12/20/[address] exam of 12/18/16. Findings: Ventricles along with basal cisterns and sulci over the convexities appear within normal limits for the patient's age. Low-density areas are seen within the thalamus on both sides which appear fairly stable from previous studies. No other abnormal parenchymal densities are seen. No evidence of intracranial hemorrhage. No midline shift or mass effect is seen. Bone window settings were reviewed which shows no acute calvarial abnormality. Visualized sinuses are clear. Impression: 1. Low-density areas within both thalami which appears stable from previous studies and therefore felt to be of no acute significance. 2. No additional abnormality is appreciated on noncontrast head CT study. Diagnostic code #2
[2017-02-22] MEDS ORDERED: Albuterol/Ipratropium 3.0-0.5 MG/3 ML Neb Soln NEB PRN (20:26)
[2017-02-22] MEDS ORDERED: Acetaminophen 325 MG Tab PO PRN (20:26)
[2017-02-22] MEDS ORDERED: Acetaminophen/HYDROcodone 325-5 MG Tab PO PRN (20:26)
[2017-02-22] MEDS ORDERED: Ondansetron 4 MG/2 ML SDV IV PRN (20:26)
[2017-02-22] MEDS ORDERED: Ondansetron 4 MG Tab.DIS PO PRN (20:26)
[2017-02-22] MEDS ORDERED: Polyethylene Glycol 3350 Powder 17 GM Packet PO PRN (20:26)
[2017-02-22] MEDS ORDERED: Docusate Sodium 100 MG Cap PO PRN (20:26)
[2017-02-22] MEDS ORDERED: Sodium Chloride 0.9% 1,000 ML IV SCH (20:30)
[2017-02-22] MEDS ORDERED: Non-Formulary Medication 1 Each (Ranitidine Hcl [Zantac 75] 75 MG) PO SCH (21:00)
--- NOTE | 2017-02-22 21:33 | PCM.HP ---
<Ever Magana - Last Filed: 02/22/17 22:56> H&P History of Present Illness - General Date of Service: 02/22/17 Source of Information: Patient, Old Records, Provider, RN, Other (Friend in room ) History Limitations: Reports: Altered Mental Status (patient is mildly confused ) - History of Present Illness Initial Comments - Free Text/Narative: Gordon Mcguire is a 61 yo male who presented today to our ED with confusion. He was reportedly brought here by a friend. He is a [facility]ACE patient who had labs drawn on and were abnormal.. An appointment was scheduled today with his PACE provider in [place], however [facility] staff decided to have him come to our ED instead. On arrival he was very confused and was not able to tell the ED provider why he is here. His labs drawn on were sent with: WBC 5.9, RBC 3.99, Hgb 12.4, HCT 40. Glucose 98, BUN 28, creatinine 2.6, sodium 142, potassium 3.9, chloride 99, CO2 33, anion gap 14, AST 14, ALT 24, bilirubin 0.3 , CK 27. BNP was 270. The patient has a very long medication list. he presented in September of this year and was diagnosed with a ARF with a creatinine of 6. He was sent to [place] for treatment. He presented in December had normal kidney function. In the ED he was afebrile with a temp of 97.8F. pulse was 73, respirations 20, BP 118/63, pulse ox 93%. an EKG was obtained showing a normal sinus rhythm at [address]pm. There was some ST elevation however this was compared to a previous EKG from December and no acute changes were appreciated. Labs were obtained: WBC 5.7, hemoglobin 11.6, hematocrit 36.7, platelet 241,000. neutrophils were elevated at 70. There is no bandemia. Sodium was normal at 141. Potassium normal at 4.6. Chloride 102. Anion gap on the high end of normal at 14.6. BUN was high at 47. Creatinine was high at 23.6. EGFR was very low at 17. Glucose is normal at 98, calcium low at 8.4, bilirubin normal at 0.3. Liver enzymes were AST 16, ALT 17, alkaline phosphatase low at 38. Troponin was negative. BNP was elevated at 3.98 albumin was low at 3.1. UA was negative. Drug screen was presumptive positive for oxycodone. The patient is on this normally. All others were negative. Ailyn alcohol was 0.00. portable chest x- ray reveals cardiomegaly with no acute infiltrates or effusions. he was given a [address] bolus[address] Head CT was negative for acute findings. He carries a history of prior [place] with stent placement, sleep apnea, lower back fusion, CVA, left hand tremor, memory impairment, depression, insomnia, and type II DM. He is a nonsmoker. He subsequently admitted to the medical floor for observation. He is a full code. His PCP is Dr. Lloyd Back Pain Score (Numeric/FACES): 8 - Related Data Allergies/Adverse Reactions: Allergies Allergy/AdvReac Type Severity Reaction Status Date / Time No Known Allergies Allergy Verified 02/22/17 11:49 Home Medications: Home Meds Allopurinol [Zyloprim] 100 mg PO DAILY 09/16/13 [History] Aspirin [Sofie Chewable Aspirin] 81 mg PO DAILY 09/16/13 [History] FLUoxetine HCl [Fluoxetine] 20 mg PO DAILY 09/16/13 [History] Ranitidine HCl [Zantac 75] 75 mg PO BID 09/16/13 [History] Tamsulosin [Flomax] 0.4 mg PO DAILY 09/16/13 [History] Acetaminophen [Tylenol Arthritis Pain] 2 tab PO BID PRN 07/17/15 [History] Ibuprofen 600 mg PO Q12H PRN 07/17/15 [History] Multivit with Min #53/FA/K/Q10 [Dekas Plus Softgel] 1 tab PO DAILY 07/17/15 [ History] Rivaroxaban [Xarelto] 20 mg PO DAILY #30 tablet 07/21/15 [Rx] Divalproex Sodium [Depakote ER] 1,250 mg PO DAILY 09/20/16 [History] oxyCODONE HCl [Roxicodone] 5 mg PO Q6H 09/20/16 [History] Cyclobenzaprine [Flexeril] 10 mg PO BID 12/18/16 [History] Melatonin 5 mg PO BEDTIME PRN 12/18/16 [History] SUMAtriptan [Imitrex] 50 mg PO BID PRN 12/18/16 [History] Fluticasone Propionate [Flonase] 2 sprays NASBOTH DAILY 12/19/16 [History] Furosemide 40 mg PO DAILY 12/19/16 [History] Gabapentin [Neurontin] 100 mg PO BID 12/19/16 [History] Lisinopril 10 mg PO DAILY 12/19/16 [History] oxyCODONE HCl/Acetaminophen [Percocet 5-325 mg Tablet] 1 tab PO Q4HR PRN [History] traZODone HCl [Trazodone HCl] 100 mg PO DAILY 12/19/16 [History] traZODone HCl [Trazodone HCl] 200 mg PO BEDTIME 12/19/16 [History] Fenofibrate Nanocrystallized [Tricor] 145 mg PO DAILY #30 tablet 12/21/16 [Rx] Metoprolol Tartrate [Lopressor] 50 mg PO Q12HR #60 tablet 12/21/16 [Rx] metFORMIN [Glucophage] 1,000 mg PO BIDMEALS #60 tablet 12/21/16 [Rx] Insulin Glargine,Hum.Rec.Anlog [Basaglar Kwikpen U-100] 27 units INJECT DAILY [History] atorvaSTATin [Lipitor] 20 mg PO BEDTIME 02/22/17 [History] Acetaminophen/oxyCODONE [Percocet 325-5 MG] 1 cap PO DAILY PRN 02/23/17 [History ] Past Medical History Cardiovascular History: Reports: [place], Stents Other Cardiovascular History: one stent Respiratory History: Reports: Sleep Apnea Gastrointestinal History: Reports: Chronic Diarrhea Genitourinary History: Reports: Acute Renal Failure Other Genitourinary History: ARF after severe tooth infection ?? per patient report Musculoskeletal History: Reports: Back Pain, Chronic, Other (See Below) Other Musculoskeletal History: left back fusion Neurological History: Reports: CVA Other Neuro History: left hand tremor and memory impairment Psychiatric History: Reports: Depression Other Psychiatric History: insomnia Endocrine/Metabolic History: Reports: Diabetes, Type II - Infectious Disease History Infectious Disease History: Reports: Chicken Pox, Measles - Past Surgical History HEENT Surgical History: Reports: Other (See Below) Other HEENT Surgeries/Procedures: oral infection ? septic GI Surgical History: Reports: Hernia Repair/Other Neurological Surgical History: Reports: Spinal Fusion Musculoskeletal Surgical History: Reports: Other (See Below) Dermatological Surgical History: Reports: None Social & Family History - Family History HEENT: Reports: None Cardiac: Reports: [place], Stent, Other (See Below) Other Cardiac Family History: Unsure of exact family history GI: Reports: Cholelithiasis Musculoskeletal: Reports: Gout Neurological: Reports: Alzheimers Disease Endocrine/Metabolic: Reports: Diabetes, type II Oncologic: Reports: Colon - Tobacco Use Smoking Status *Q: Never Smoker Second Hand Smoke Exposure: No - Caffeine Use Caffeine Use: Reports: Soda - Alcohol Use Days Per Week of Alcohol Use: 0 - Recreational Drug Use Recreational Drug Use: No - Living Situation & Occupation Living situation: Reports: Single Occupation: Disabled H&P Review of Systems - Review of Systems: Review Of Systems: See Below General: Reports: No Symptoms. Denies: Fever, Chills, Malaise, Weakness HEENT: Reports: No Symptoms. Denies: Headaches, Hearing Changes, Sore Throat Pulmonary: Reports: No Symptoms. Denies: Shortness of Breath, Wheezing, Pleuritic Chest Pain, Cough, Sputum Cardiovascular: Reports: No Symptoms. Denies: Chest Pain, Palpitations, Dyspnea on Exertion, Orthopnea, Lightheadedness Gastrointestinal: Reports: No Symptoms. Denies: Abdominal Pain, Constipation, Diarrhea, Nausea, Vomiting Genitourinary: Reports: No Symptoms. Denies: Dysuria, Frequency, Burning, Pain , Urgency Musculoskeletal: Reports: Back Pain (Chronic - lower left side to midline ) Skin: Reports: No Symptoms. Denies: Cyanosis, Jaundice, Mottled Psychiatric: Reports: Confusion, Depression. Denies: Mood Lability, Anxiety, Agitation, Hallucinations Neurological: Reports: Confusion. Denies: Dizziness, Headache, Numbness, Trouble Speaking, Difficulty Walking Hematologic/Lymphatic: Reports: No Symptoms Immunologic: Reports: No Symptoms Review of Systems Comment:: patient reports back pain 8 out of 10. He states that he normally has back pain however this time it may be due to his kidneys. Patient has some obvious confusion. He is alert and orientated however when I asked him to rate his pain he looked at me confused. I asked him several more times and he reported it at an 8. He had a friend in the room and I asked the friend if this is his normal baseline confusion. He responded that the patient can tell me more about it. I questioned this further and he reported that last time the patient was seen in the ED with "very bad kidney failure" his confusion had increased. I discussed this confusion with the ED provider as they have had more experience with the patient. they report that he does have baseline confusion. They report it was much worse today in the ED. Many of his statements did not make sense or were inappropriate for the conversation. They report he has improved and was at baseline when he was admitted to our unit. Exam - Exam Exam: See Below - Vital Signs Vital Signs: Last Vital Signs Temp 97.9 F 02/22/17 20:01 Pulse 71 02/22/17 20:01 Resp 15 02/22/17 20:01 BP 119/76 02/22/17 20:01 Pulse Ox 97 02/22/17 20:01 Weight: 99.79 kg - Exam Quality Assessment: DVT Prophylaxis General: Alert, Oriented, Cooperative HEENT: Conjunctiva Clear, EACs Clear, EOMI, Hearing Intact, Mucosa Moist & [place] , Nares Patent, Normal Nasal Septum, Posterior Pharynx Clear, Pupils Equal, Pupils Reactive Neck: Supple, Trachea Midline. No: JVD, Thyromegaly Lungs: Clear to Auscultation, Normal Respiratory Effort, Decreased Breath Sounds. No: Crackles, Rales, Rhonchi, Wheezing Cardiovascular: Regular Rate, Regular Rhythm, Other (decreased heart tones.) GI/Abdominal Exam: Normal Bowel Sounds, Soft, Non-Tender, No Organomegaly, No Distention, No Abnormal Bruit, No Mass, Pelvis Stable (Male) Exam: Deferred Rectal (Males) Exam: Deferred Back Exam: Normal Inspection, Decreased Range of Motion, Paraspinal Tenderness ( left lower ), Vertebral Tenderness (lumbar ) Extremities: Normal Range of Motion, Non-Tender, Normal Capillary Refill, Pedal Edema (2+), Other (pigmentation changes and dryness to bilateral legs. ) Peripheral Pulses: 1+: Posterior Tibial (L), Posterior Tibial (R), Dorsalis Pedis (L), Dorsalis Pedis (R), 2+: Radial (L), Radial (R) Skin: Warm, Dry, Intact Neurological: Cranial Nerves Intact (grossly) Neuro Extensive - Mental Status: Alert, Oriented x3, Normal Mood/Affect, Memory Intact, Other (mild confusion ) Neuro Extensive - Motor, Sensory, Reflexes: CN II-XII Intact (grossly ), Normal Gait Psychiatric: Alert, Normal Affect, Normal Mood - Patient Data Result Diagrams: 02/22/17 12:40 02/22/17 12:40 *Q Meaningful Use (ADM) - VTE *Q VTE Criteria *Q: - Stroke *Q Stroke Criteria *Q: - AMI *Q AMI Criteria *Q: - Problem List (1) Acute renal failure SNOMED Code(s): 37276790 ICD Code: N17.9 - ACUTE KIDNEY FAILURE, UNSPECIFIED Status: Acute Priority: High Current Visit: Yes QualifierTitle: Acute renal failure type: unspecified Qualified Code(s): N17.9 - Acute kidney failure, unspecified (2) Confusion SNOMED Code(s): 099826650 ICD Code: R41.0 - DISORIENTATION, UNSPECIFIED Status: Chronic Priority: High Current Visit: No (3) Chronic low back pain SNOMED Code(s): 506034163 ICD Code: M54.5 - LOW BACK PAIN; G89.29 - OTHER CHRONIC PAIN Status: Chronic Priority: Medium Current Visit: No QualifierTitle: Back pain laterality: unspecified Sciatica presence: with sciatica Sciatica laterality: sciatica laterality unspecified Qualified Code(s): M54.40 - Lumbago with sciatica, unspecified side; G89.29 - Other chronic pain; G89.29 - Other chronic pain (4) Diabetes mellitus type 2 in obese SNOMED Code(s): 72551536 ICD Code: E11.9 - TYPE 2 DIABETES MELLITUS WITHOUT COMPLICATIONS; E66.9 - OBESITY, UNSPECIFIED Status: Chronic Priority: High Current Visit: No Problem List Initiated/Reviewed/Updated: Yes Orders Last 24hrs: Active Orders 24 hr Category Date Time Status Ambulate [RC] PER UNIT ROUTINE Care 02/22/17 20:27 Active Antiembolic Devices [RC] PER UNIT ROUTINE Care 02/22/17 20:28 Active Blood Glucose Check, Bedside [RC] QIDACANDBED Care 02/22/17 20:26 Active Height and Weight [RC] DAILY Care 02/22/17 20:26 Active Intake and Output [RC] QSHIFT Care 02/22/17 20:27 Active Oxygen Therapy [RC] PRN Care 02/22/17 20:26 Active Oxygen Therapy [RC] PRN Care 02/22/17 20:35 Active RT Aerosol Therapy [RC] ASDIRECTED Care 02/22/17 20:31 Active Up With Assistance [RC] ASDIRECTED Care 02/22/17 20:26 Active VTE/DVT Education [RC] PER UNIT ROUTINE Care 02/22/17 20:26 Active VTE/DVT Education [RC] PER UNIT ROUTINE Care 02/22/17 20:35 Active Vital Signs [RC] Q4H Care 02/22/17 20:26 Active Vital Signs [RC] Q4H Care 02/22/17 20:35 Active Consult to Case Management [CONS] Routine Cons 02/22/17 20:26 Active Consult to Ward Clerk [CONS] Routine Cons 02/22/17 20:26 Active Consistent Carbohydrate Diet [DIET] Diet 02/22/17 Dinner Active BASIC METABOLIC PANEL,BMP [CHEM] AM Lab 02/23/17 05:11 Ordered BASIC METABOLIC PANEL,BMP [CHEM] AM Lab 02/24/17 05:11 Ordered BASIC METABOLIC PANEL,BMP [CHEM] AM Lab 02/25/17 05:11 Ordered BASIC METABOLIC PANEL,BMP [CHEM] AM Lab 02/26/17 05:11 Ordered CBC WITH AUTO DIFF [HEME] AM Lab 02/23/17 05:11 Ordered CBC WITH AUTO DIFF [HEME] AM Lab 02/24/17 05:11 Ordered CBC WITH AUTO DIFF [HEME] AM Lab 02/25/17 05:11 Ordered CBC WITH AUTO DIFF [HEME] AM Lab 02/26/17 05:11 Ordered MAGNESIUM [CHEM] AM Lab 02/23/17 05:11 Ordered MAGNESIUM [CHEM] AM Lab 02/24/17 05:11 Ordered MAGNESIUM [CHEM] AM Lab 02/25/17 05:11 Ordered MAGNESIUM [CHEM] AM Lab 02/26/17 05:11 Ordered Acetaminophen [Tylenol] Med 02/22/17 20:26 Active 650 mg PO Q4H PRN Acetaminophen/HYDROcodone [Meldrim 325-5 MG] Med 02/22/17 20:26 Active 1 tab PO Q4H PRN Albuterol/Ipratropium [DuoNeb 3.0-0.5 MG/3 ML] Med 02/22/17 20:26 Active 3 ml NEB Q4H PRN Aspirin [Sofie Chewable Aspirin] Med 02/23/17 09:00 Ordered 81 mg PO DAILY Divalproex Sodium Med 02/23/17 09:00 Ordered 1,250 mg PO DAILY Docusate Sodium [Colace] Med 02/22/17 20:26 Active 100 mg PO BID PRN FLUoxetine Med 02/23/17 09:00 Ordered 20 mg PO DAILY Furosemide [Furosemide] Med 02/23/17 09:00 Ordered 40 mg PO DAILY Gabapentin [Neurontin] Med 02/22/17 21:00 Ordered 100 mg PO BID Insulin Aspart [NovoLOG] Med 02/22/17 21:00 Active See Protocol SUBCUT QIDACANDBED Insulin Glargine,Hum.Rec.Anlog Med 02/23/17 09:00 Ordered 27 units INJECT DAILY Lisinopril [Lisinopril] Med 02/23/17 09:00 Ordered 10 mg PO DAILY Metoprolol Tartrate [Lopressor] Med 02/22/17 21:00 Ordered 50 mg PO Q12HR Ondansetron [Zofran ODT] Med 02/22/17 20:26 Active 4 mg PO Q4H PRN Ondansetron [Zofran] Med 02/22/17 20:26 Active 4 mg IV Q4H PRN Polyethylene Glycol 3350 [MiraLAX] Med 02/22/17 20:26 Active 17 gm PO DAILY PRN Rivaroxaban [Xarelto] Med 02/23/17 09:00 Ordered 20 mg PO DAILY Sodium Chloride 0.9% [Normal Saline] 1,000 ml Med 02/22/17 21:15 Ordered IV ASDIRECTED Tamsulosin [Flomax] Med 02/23/17 09:00 Ordered 0.4 mg PO DAILY oxyCODONE HCl [Roxicodone] Med 02/22/17 20:45 Ordered 5 mg PO Q6H traZODone HCl [Trazodone HCl] Med 02/23/17 09:00 Ordered 100 mg PO DAILY traZODone HCl [Trazodone HCl] Med 02/22/17 21:00 Ordered 200 mg PO BEDTIME Sequential Compression Device [OM.PC] Per Unit Routine Oth 02/22/17 20:27 Ordered Resuscitation Status Routine Resus Stat 02/22/17 20:26 Ordered Medication Orders Acetaminophen (Tylenol) 650 mg PO Q4H PRN PRN Reason: Pain (Mild 1-3)/fever Hydrocodone Bitart/Acetaminophen (Meldrim 325-5 Mg) 1 tab PO Q4H PRN PRN Reason: Pain (moderate 4-6) Albuterol/Ipratropium (Duoneb 3.0-0.5 Mg/3 Ml) 3 ml NEB Q4H PRN PRN Reason: Shortness Of Breath/wheezing Docusate Sodium (Colace) 100 mg PO BID PRN PRN Reason: Constipation Sodium Chloride (Normal Saline) 1,000 mls @ 75 mls/hr IV ONETIME ONE Stop: 02/23/17 07:11 Sodium Chloride (Normal Saline) 1,000 mls @ 75 mls/hr IV ASDIRECTED [facility] Insulin Aspart (Novolog) 0 unit SUBCUT QIDACANDBED KAREEM PRN Reason: Protocol Non-Formulary Medication (Aspirin [Sofie Chewable Aspirin]) 81 mg PO DAILY KAREEM Non-Formulary Medication (Divalproex Sodium) 1,250 mg PO DAILY KAREEM Non-Formulary Medication (Fluoxetine) 20 mg PO DAILY KAREEM Non-Formulary Medication (Furosemide [Furosemide]) 40 mg PO DAILY KAREEM Non-Formulary Medication (Gabapentin [Neurontin]) 100 mg PO BID KAREEM Non-Formulary Medication (Insulin Glargine,Hum.Rec.Anlog) 27 units INJECT DAILY KAREEM Non-Formulary Medication (Lisinopril [Lisinopril]) 10 mg PO DAILY KAREEM Non-Formulary Medication (Metoprolol Tartrate [Lopressor]) 50 mg PO Q12HR KAREEM Non-Formulary Medication (Oxycodone Hcl [Roxicodone]) 5 mg PO Q6H KAREEM Non-Formulary Medication (Rivaroxaban [Xarelto]) 20 mg PO DAILY KAREEM Non-Formulary Medication (Tamsulosin [Flomax]) 0.4 mg PO DAILY KAREEM Non-Formulary Medication (Trazodone Hcl [Trazodone Hcl]) 100 mg PO DAILY KAREEM Non-Formulary Medication (Trazodone Hcl [Trazodone Hcl]) 200 mg PO BEDTIME KAREEM Ondansetron HCl (Zofran Odt) 4 mg PO Q4H PRN PRN Reason: nausea, able to take PO Ondansetron HCl (Zofran) 4 mg IV Q4H PRN PRN Reason: Nausea/Vomiting Polyethylene Glycol (Miralax) 17 gm PO DAILY PRN PRN Reason: Constipation Sodium Chloride (Saline Flush) 10 ml FLUSH ASDIRECTED PRN PRN Reason: Keep Vein Open Last Admin: 02/22/17 12:34 Dose: 10 ml Assessment/Plan Comment:: I/P: Acute: ARF -Bun 47 -Creatinine 3.6 -eGFR 17 -Questioning patients fluid intake 2/2 confusion -Hx/o ARF with creatinine at 6 - Sep, 2016 -Normal renal function in December -Will hold as many nephrotoxic medications as possible -IV fluids as indicated, utilizing caution due to previous [place] and slightly elevated BNP Confusion -Patient has mild confusion at baseline -More confused upon presentation to ED - questioning 2/2 ARF, improved once admitted to floor per ED provider -Negative UA -UDS presumptive positive for oxycodone (which he is prescribed), all others negative in ED -Ethyl alcohol 0.00 in ED -In previous charts it was noted patient has been poorly compliant with his medications -[facility] patient - unsure if they manage his medications -Multiple psychiatric medications -Consider Dr. Magana consult if needed. Chronic: Type II DM -Will hold metformin for now due to ARF -Sliding scale insulin as indicated -Continue home basal insulin -Blood sugar checks as indicated -Glucose 98 in ED -Diabetic diet Hx/o [place] with stent placement Depression Sleep apnea Chronic back pain - pain meds as indicated CVA Left hand tremor Memory impairment Insomnia Plan: SW/CM for discharge planning Routine AM labs PT/OT Will hold off on GI prophylaxis for now due to current ARF DVT/PE prophylaxis - KAY hose Other orders as indicated above Home medications as indicated Code status: Full code. His PCP is Dr. Lloyd at [facility] here in [place] <Alana Alvarado - Last Filed: 02/23/17 14:16> Exam - Vital Signs Vital Signs: Last Vital Signs Temp 36.7 C 02/23/17 13:01 Pulse 69 02/23/17 13:05 Resp 16 02/23/17 13:01 BP 109/76 02/23/17 13:01 Pulse Ox 92 L 02/23/17 13:05 - Patient Data Result Diagrams: 02/23/17 06:00 02/23/17 06:00 *Q Meaningful Use (ADM) - VTE *Q VTE Criteria *Q: - Stroke *Q Stroke Criteria *Q: - AMI *Q AMI Criteria *Q: Problem List Initiated/Reviewed/Updated: Yes Orders Last 24hrs: Medication Orders Acetaminophen (Tylenol) 650 mg PO Q4H PRN PRN Reason: Pain (Mild 1-3)/fever Albuterol/Ipratropium (Duoneb 3.0-0.5 Mg/3 Ml) 3 ml NEB Q4H PRN PRN Reason: Shortness Of Breath/wheezing Aspirin (Aspirin) 81 mg PO DAILY [facility] Last Admin: 02/23/17 10:20 Dose: 81 mg Divalproex Sodium (Divalproex Sodium) 1,250 mg PO DAILY [facility] Last Admin: 02/23/17 10:19 Dose: 1,250 mg Docusate Sodium (Colace) 100 mg PO BID PRN PRN Reason: Constipation Fluoxetine HCl (Prozac) 20 mg PO DAILY [facility] Last Admin: 02/23/17 10:20 Dose: 20 mg Furosemide (Lasix) 40 mg PO DAILY [facility] Last Admin: 02/23/17 10:20 Dose: 40 mg Gabapentin (Neurontin) 100 mg PO BID [facility] Last Admin: 02/23/17 10:20 Dose: 100 mg Admin: 02/22/17 23:39 Dose: 100 mg Sodium Chloride (Normal Saline) 1,000 mls @ 100 mls/hr IV ASDIRECTED [facility] Last Admin: 02/23/17 12:40 Dose: 100 mls/hr Insulin Aspart (Novolog) 0 unit SUBCUT QIDACANDBED [facility] PRN Reason: Protocol Last Admin: 02/23/17 12:41 Dose: Not Given Admin: 02/23/17 06:03 Dose: Not Given Admin: 02/22/17 23:21 Dose: Not Given Admin: 02/22/17 23:20 Dose: Not Given Insulin Detemir (Levemir) 27 unit SUBCUT DAILY [facility] Last Admin: 02/23/17 10:20 Dose: 27 units Metoprolol Tartrate (Lopressor) 50 mg PO Q12HR [facility] Last Admin: 02/23/17 10:22 Dose: 50 mg Admin: 02/22/17 23:44 Dose: 50 mg Ondansetron HCl (Zofran Odt) 4 mg PO Q4H PRN PRN Reason: nausea, able to take PO Ondansetron HCl (Zofran) 4 mg IV Q4H PRN PRN Reason: Nausea/Vomiting Oxycodone HCl (Oxycodone) 5 mg PO 0800,1200,1600,2000 [facility] Last Admin: 02/23/17 12:41 Dose: 5 mg Admin: 02/23/17 10:28 Dose: Not Given Oxycodone/Acetaminophen (Percocet 325-5 Mg) 1 tab PO Q4H PRN PRN Reason: Pain (moderate 4-6) Polyethylene Glycol (Miralax) 17 gm PO DAILY PRN PRN Reason: Constipation Rivaroxaban (Xarelto) 20 mg PO DAILY [facility] Last Admin: 02/23/17 10:19 Dose: 20 mg Sodium Chloride (Saline Flush) 10 ml FLUSH ASDIRECTED PRN PRN Reason: Keep Vein Open Last Admin: 02/22/17 12:34 Dose: 10 ml Tamsulosin HCl (Flomax) 0.4 mg PO DAILY [facility] Last Admin: 02/23/17 10:19 Dose: 0.4 mg Trazodone HCl (Trazodone) 100 mg PO DAILY [facility] Last Admin: 02/23/17 10:20 Dose: 100 mg Trazodone HCl (Trazodone) 200 mg PO BEDTIME [facility] Last Admin: 02/22/17 23:40 Dose: 200 mg Assessment/Plan Comment:: Clarification of support; need for large quantity of narcotics--->TBD. Suggest need for supervision will be reassessed.
[2017-02-22] MEDS: Sodium Chloride 0.9% 1,000 ML IV ONE ×2 (22:55→23:34)
[2017-02-22] MEDS: Insulin Aspart 100 Units/ML 3 ML Pen SUBCUT SCH ×2 (23:20→23:21)
[2017-02-22] MEDS: Gabapentin 100 MG Cap PO SCH (23:39)
[2017-02-22] MEDS: traZODone 50 MG Tab PO SCH (23:40)
[2017-02-22] MEDS: oxyCODONE 5 MG Tab PO SCH (23:40)
[2017-02-22] MEDS: Metoprolol Tartrate 50 MG Tab PO SCH (23:44)
[2017-02-23] MEDS: oxyCODONE 5 MG Tab PO SCH ×6 (04:53→21:37)
[2017-02-23] MEDS: Insulin Aspart 100 Units/ML 3 ML Pen SUBCUT SCH ×4 (06:03→22:29)
[2017-02-23] MEDS ORDERED: Lisinopril 10 MG Tab PO SCH (09:00)
[2017-02-23] MEDS ORDERED: Non-Formulary Medication 1 Each (Allopurinol [Zyloprim] 100 MG) PO SCH (09:00)
[2017-02-23] MEDS ORDERED: Magnesium Sulfate/Water 2 GM in Premix Bag 1 BAG IV ONE (09:51)
[2017-02-23] MEDS: Tamsulosin 0.4 MG Cap.ER PO SCH (10:19)
[2017-02-23] MEDS: Divalproex Sodium Delayed-Release 250 MG Tab.CR PO SCH (10:19)
[2017-02-23] MEDS: Rivaroxaban 10 MG Tab PO SCH (10:19)
[2017-02-23] MEDS: Insulin Detemir 100 Units/ML 3 ML Pen SUBCUT SCH (10:20)
[2017-02-23] MEDS: Gabapentin 100 MG Cap PO SCH ×2 (10:20→21:37)
[2017-02-23] MEDS: Aspirin 81 MG Tab.Chew PO SCH (10:20)
[2017-02-23] MEDS: FLUoxetine 20 MG Cap PO SCH (10:20)
[2017-02-23] MEDS: Furosemide 40 MG Tab PO SCH (10:20)
[2017-02-23] MEDS: traZODone 50 MG Tab PO SCH ×2 (10:20→21:36)
[2017-02-23] MEDS: Metoprolol Tartrate 50 MG Tab PO SCH ×2 (10:22→21:36)
[2017-02-23] MEDS: Sodium Chloride 0.9% 1,000 ML IV SCH ×2 (12:40→23:01)
--- NOTE | 2017-02-23 16:42 | PCM.PN ---
<Ever Magana - Last Filed: 02/23/17 19:38> - General Info Date of Service: 02/23/17 Admission Dx/Problem (Free Text): Acute Renal Failure, AMS Functional Status: Reports: Pain Controlled, Tolerating Diet, Ambulating, Urinating. Denies: New Symptoms - Review of Systems General: Reports: No Symptoms. Denies: Fever, Weakness, Fatigue, Malaise, Chills HEENT: Reports: No Symptoms. Denies: Eye Pain, Sore Throat, Rhinitis, Visual Changes Pulmonary: Reports: No Symptoms. Denies: Shortness of Breath, Pleuritic Chest Pain, Cough, Sputum, Hemoptysis, Wheezing Cardiovascular: Reports: No Symptoms. Denies: Chest Pain, Palpitations, Dyspnea on Exertion, Edema Gastrointestinal: Reports: No Symptoms. Denies: Abdominal Pain, Constipation, Decreased Appetite, Diarrhea, Nausea, Vomiting Genitourinary: Denies: No Symptoms, Dysuria, Frequency, Burning, Pain, Urgency Musculoskeletal: Reports: Back Pain (Chronic 12/21 - patient reports this is his normal back pain level. Lower left to midline.). Denies: Neck Pain, Arm Pain, Foot Pain, Joint Pain, Joint Swelling Skin: Reports: No Symptoms. Denies: Cyanosis, Jaundice, Mottled Neurological: Denies: Confusion (denies any feelings of confusion ), Dizziness, Headache, Syncope, Trouble Speaking, Weakness Psychiatric: Reports: No Symptoms. Denies: Confusion, Depression Systems Review Comment:: Patient reports today that he is feeling well. He had 2 bowel movements since our last visit. Discussed with him his confusion at admission. He reports he has been confused in the past when his kidney function decline. He does not feel confused currently and does not remember being confused yesterday. He answered questions appropriately this time. He remembered our discussion yesterday and reports back pain is 12/21 "just like it was yesterday." - Patient Data Vitals - Most Recent: Last Vital Signs Temp 98.1 F 02/23/17 13:01 Pulse 69 02/23/17 13:05 Resp 16 02/23/17 13:01 BP 109/76 02/23/17 13:01 Pulse Ox 92 L 02/23/17 13:05 Weight - Most Recent: 128.775 kg I&O - Last 24 Hours: Intake & Output 02/23/17 02/23/17 02/23/17 06:59 14:59 22:59 Intake Total 1373 Balance 1373 Med Orders - Current: Current Medications Acetaminophen (Tylenol) 650 mg PO Q4H PRN PRN Reason: Pain (Mild 1-3)/fever Albuterol/Ipratropium (Duoneb 3.0-0.5 Mg/3 Ml) 3 ml NEB Q4H PRN PRN Reason: Shortness Of Breath/wheezing Aspirin (Aspirin) 81 mg PO DAILY [facility] Last Admin: 02/23/17 10:20 Dose: 81 mg Divalproex Sodium (Divalproex Sodium) 1,250 mg PO DAILY [facility] Last Admin: 02/23/17 10:19 Dose: 1,250 mg Docusate Sodium (Colace) 100 mg PO BID PRN PRN Reason: Constipation Fluoxetine HCl (Prozac) 20 mg PO DAILY [facility] Last Admin: 02/23/17 10:20 Dose: 20 mg Furosemide (Lasix) 40 mg PO DAILY [facility] Last Admin: 02/23/17 10:20 Dose: 40 mg Gabapentin (Neurontin) 100 mg PO BID [facility] Last Admin: 02/23/17 10:20 Dose: 100 mg Sodium Chloride (Normal Saline) 1,000 mls @ 100 mls/hr IV ASDIRECTED [facility] Last Admin: 02/23/17 12:40 Dose: 100 mls/hr Insulin Aspart (Novolog) 0 unit SUBCUT QIDACANDBED [facility] PRN Reason: Protocol Last Admin: 02/23/17 12:41 Dose: Not Given Insulin Detemir (Levemir) 27 unit SUBCUT DAILY [facility] Last Admin: 02/23/17 10:20 Dose: 27 units Metoprolol Tartrate (Lopressor) 50 mg PO Q12HR [facility] Last Admin: 02/23/17 10:22 Dose: 50 mg Ondansetron HCl (Zofran Odt) 4 mg PO Q4H PRN PRN Reason: nausea, able to take PO Ondansetron HCl (Zofran) 4 mg IV Q4H PRN PRN Reason: Nausea/Vomiting Oxycodone HCl (Oxycodone) 5 mg PO 0800,1200,1600,2000 [facility] Last Admin: 02/23/17 12:41 Dose: 5 mg Oxycodone/Acetaminophen (Percocet 325-5 Mg) 1 tab PO Q4H PRN PRN Reason: Pain (moderate 4-6) Polyethylene Glycol (Miralax) 17 gm PO DAILY PRN PRN Reason: Constipation Rivaroxaban (Xarelto) 20 mg PO DAILY [facility] Last Admin: 02/23/17 10:19 Dose: 20 mg Sodium Chloride (Saline Flush) 10 ml FLUSH ASDIRECTED PRN PRN Reason: Keep Vein Open Last Admin: 02/22/17 12:34 Dose: 10 ml Tamsulosin HCl (Flomax) 0.4 mg PO DAILY [facility] Last Admin: 02/23/17 10:19 Dose: 0.4 mg Trazodone HCl (Trazodone) 100 mg PO DAILY [facility] Last Admin: 02/23/17 10:20 Dose: 100 mg Trazodone HCl (Trazodone) 200 mg PO BEDTIME [facility] Last Admin: 02/22/17 23:40 Dose: 200 mg Discontinued Medications Hydrocodone Bitart/Acetaminophen ([place] 325-5 Mg) 1 tab PO Q4H PRN PRN Reason: Pain (moderate 4-6) Sodium Chloride (Normal Saline) 500 mls @ 999 mls/hr IV ONETIME ONE Stop: 02/22/17 14:03 Last Admin: 02/22/17 13:39 Dose: 999 mls/hr Sodium Chloride (Normal Saline) Confirm Administered Dose 1,000 mls @ as directed .ROUTE .STK-MED ONE Stop: 02/22/17 13:35 Last Admin: 02/22/17 13:40 Dose: Not Given Sodium Chloride (Normal Saline) 1,000 mls @ 75 mls/hr IV ONETIME ONE Stop: 02/23/17 07:11 Last Admin: 02/22/17 23:34 Dose: Not Given Sodium Chloride (Normal Saline) 1,000 mls @ 100 mls/hr IV ASDIRECTED [facility] Stop: 02/24/17 06:29 Magnesium Sulfate 2 gm/ Premix 50 mls @ 25 mls/hr IV ONETIME ONE Stop: 02/23/17 11:50 Last Admin: 02/23/17 10:23 Dose: 25 mls/hr Lisinopril (Prinivil) 10 mg PO DAILY [facility] Last Admin: 02/23/17 12:34 Dose: Not Given Non-Formulary Medication (Allopurinol [Zyloprim]) 100 mg PO DAILY [facility] Non-Formulary Medication (Ranitidine Hcl [Zantac 75]) 75 mg PO BID [facility] Oxycodone HCl (Oxycodone) 5 mg PO Q6H [facility] Last Admin: 02/23/17 04:53 Dose: Not Given - Exam Quality Assessment: DVT Prophylaxis General: Alert, Oriented, Cooperative HEENT: Pupils Equal, Pupils Reactive, Mucous Membr. Moist/[place] Neck: Supple, Trachea Midline. No: No JVD Lungs: Clear to Auscultation, Normal Respiratory Effort Cardiovascular: Regular Rate, Regular Rhythm GI/Abdominal Exam: Normal Bowel Sounds, Soft. No: Non-Tender, No Organomegaly, No Distention, No Abnormal Bruit, No Mass (Male) Exam: Deferred Extremities: Normal Inspection, Normal Range of Motion, Non-Tender, Normal Capillary Refill, Pedal Edema (1+), Other (pigmentation change bilaterally ) Peripheral Pulses: 1+: Posterior Tibial (L), Posterior Tibial (R), Dorsalis Pedis (L), Dorsalis Pedis (R), 2+: Radial (L), Radial (R) Skin: Warm, Dry, Intact Neurological: No New Focal Deficit Psy/Mental Status: Alert, Normal Affect, Normal Mood Physical Findings Comments:: Patient appears to be responding well to treatment. Labs have improved. I have held several of his medications. We will be investigating his medication list further, as there are some questions of polypharmacy. Patient is on several pain medications, as well as Flexeril and gabapentin. Many of these meds are nephrotoxic as well. We will do some further investigating try to figure out why the patient has had these episodes of severe acute renal failure. I discussed case with Dr. Alvarado, hospitalist. She would like to see the patient's old records as it appears he was a [place] patient of Dr. Lloyd, but recently switched once he was placed on [facility]. His primary provider is now in [place]. It is reported that his medications are in locked cabinets and [facility] visits him regularly to ensure he is taking his medications as prescribed. We will continue to adjust his medications accordingly and provide fluids. - Problem List & Annotations (1) Acute renal failure SNOMED Code(s): 26542272 Code(s): N17.9 - ACUTE KIDNEY FAILURE, UNSPECIFIED Status: Acute Priority : High Current Visit: Yes QualifierTitle: Acute renal failure type: unspecified Qualified Code(s): N17.9 - Acute kidney failure, unspecified (2) Confusion SNOMED Code(s): 164040158 Code(s): R41.0 - DISORIENTATION, UNSPECIFIED Status: Chronic Priority: High Current Visit: Yes (3) Chronic low back pain SNOMED Code(s): 859062081 Code(s): M54.5 - LOW BACK PAIN; G89.29 - OTHER CHRONIC PAIN Status: Chronic Priority: Medium Current Visit: Yes QualifierTitle: Back pain laterality: unspecified Sciatica presence: with sciatica Sciatica laterality: sciatica laterality unspecified Qualified Code(s): M54.40 - Lumbago with sciatica, unspecified side; G89.29 - Other chronic pain; G89.29 - Other chronic pain (4) Diabetes mellitus type 2 in obese SNOMED Code(s): 05964428 Code(s): E11.9 - TYPE 2 DIABETES MELLITUS WITHOUT COMPLICATIONS; E66.9 - OBESITY, UNSPECIFIED Status: Chronic Priority: High Current Visit: Yes (5) Hypomagnesemia SNOMED Code(s): 291859660 Code(s): E83.42 - HYPOMAGNESEMIA Status: Acute Priority: Medium Current Visit: Yes Onset Date: 07/21/15 Annotation/Comment:: - Replete prior to d/c - Problem List Review Problem List Initiated/Reviewed/Updated: Yes - Plan Plan:: I/P: Acute: ARF - improving -Bun 47 -->38 -Creatinine 3.6 -->1.8 -eGFR 17--> 39 -Questioning patients fluid intake 2/2 confusion -Hx/o ARF with creatinine at - Sep, 2016 -Normal renal function in December -Will hold as many nephrotoxic medications as possible -IV fluids as indicated, utilizing caution due to previous TN and slightly elevated BNP Confusion - improved -Patient has mild confusion at baseline -More confused upon presentation to ED - questioning 2/2 ARF, improved once admitted to floor per ED provider -Negative UA -CT in ED negative for acute findings -UDS presumptive positive for oxycodone (which he is prescribed), all others negative in ED -Ethyl alcohol 0.00 in ED -In previous charts it was noted patient has been poorly compliant with his medications -[facility] patient - they reportedly manage his medications although he is very new to their service -Investigate need for high doses of narcotic medications - questioning polypharmacy -Multiple psychiatric medications -Consider Dr. Magana consult if needed. Hypomagnesemia -Magnesium 1.7 today -2 grams given IV -Will continue to monitor and replete. Chronic: Type II DM -Will hold metformin for now due to ARF -Sliding scale insulin as indicated -Continue home basal insulin -Blood sugar checks as indicated -Glucose 98 in ED - has been relatively stable today -Diabetic diet Hx/o TN with stent placement Depression Sleep apnea Chronic back pain - pain meds as indicated CVA Left hand tremor Memory impairment Insomnia Plan: SW/CM for discharge planning Routine AM labs PT/OT Will hold off on GI prophylaxis for now due to current ARF DVT/PE prophylaxis - KAY hose Other orders as indicated above Home medications as indicated Code status: Full code. His PCP is reportedly now the [facility] provider in [place]. I spent approximately 30 minutes with Mr. Mcguire discussing his current labs and plan of care. <Alana Alvarado M - Last Filed: 02/24/17 14:41> - Patient Data Vitals - Most Recent: Last Vital Signs Temp 36.7 C 02/24/17 11:54 Pulse 60 02/24/17 11:54 Resp 14 02/24/17 11:54 BP 117/61 02/24/17 11:54 Pulse Ox 96 02/24/17 11:54 I&O - Last 24 Hours: Intake & Output 02/23/17 02/24/17 02/24/17 22:59 06:59 14:59 Intake Total 1613 1530 120 Output Total 1675 Balance 1613 -145 120 Lab Results Last 24 Hours: Laboratory Results - last 24 hr 02/23/17 02/23/17 02/24/17 Range/Units 17:33 21:43 06:01 WBC 4.84 (4.23-9.07) K/mm3 RBC 3.68 L (4.63-6.08) M/mm3 Hgb 11.0 L (13.7-17.5) gm/L Hct 36.0 L (40.1-51.0) % MCV 97.8 H (79.0-92.2) fl MCH 29.9 (25.7-32.2) pg MCHC 30.6 L (32.2-35.5) g/dl RDW Std Deviation 44.8 H (35.1-43.9) fL Plt Count 250 (163-337) K/mm3 MPV 11.0 (9.4-12.3) fl Neut % (Auto) 51.1 (34.0-67.9) % Lymph % (Auto) 30.8 (21.8-53.1) % [place] % (Auto) 13.6 H (5.3-12.2) % Eos % (Auto) 3.7 (0.8-7.0) Baso % (Auto) 0.4 (0.1-1.2) % Neut # (Auto) 2.47 (1.78-5.38) K/mm3 Lymph # (Auto) 1.49 (1.32-3.57) K/mm3 [place] # (Auto) 0.66 (0.30-0.82) K/mm3 Eos # (Auto) 0.18 (0.04-0.54) K/mm3 Baso # (Auto) 0.02 (0.01-0.08) K/mm3 Sodium (136-145) mEq/L Potassium (3.5-5.1) mEq/L Chloride (98-107) mEq/L Carbon Dioxide (21-32) mEq/L Anion Gap (5-15) BUN (7-18) mg/dL Creatinine (0.7-1.3) mg/dL Est Cr Clr Drug Dosing mL/min Estimated GFR (MDRD) (>60) mL/min BUN/Creatinine Ratio (14-18) Glucose (80-115) mg/dL POC Glucose 99 152 H (80-115) mg/dL Calcium (8.5-10.1) mg/dL Magnesium (1.8-2.4) mg/dl NT-Pro-B Natriuret Pep (0-125) pg/mL 02/24/17 02/24/17 02/24/17 Range/Units 06:01 06:26 11:54 WBC (4.23-9.07) K/mm3 RBC (4.63-6.08) M/mm3 Hgb (13.7-17.5) gm/L Hct (40.1-51.0) % MCV (79.0-92.2) fl MCH (25.7-32.2) pg MCHC (32.2-35.5) g/dl RDW Std Deviation (35.1-43.9) fL Plt Count (163-337) K/mm3 MPV (9.4-12.3) fl Neut % (Auto) (34.0-67.9) % Lymph % (Auto) (21.8-53.1) % [place] % (Auto) (5.3-12.2) % Eos % (Auto) (0.8-7.0) Baso % (Auto) (0.1-1.2) % Neut # (Auto) (1.78-5.38) K/mm3 Lymph # (Auto) (1.32-3.57) K/mm3 [place] # (Auto) (0.30-0.82) K/mm3 Eos # (Auto) (0.04-0.54) K/mm3 Baso # (Auto) (0.01-0.08) K/mm3 Sodium 144 (136-145) mEq/L Potassium 4.3 (3.5-5.1) mEq/L Chloride 106 (98-107) mEq/L Carbon Dioxide 33 H (21-32) mEq/L Anion Gap 9.3 (5-15) BUN 25 H (7-18) mg/dL Creatinine 1.3 (0.7-1.3) mg/dL Est Cr Clr Drug Dosing 65.50 mL/min Estimated GFR (MDRD) 56 (>60) mL/min BUN/Creatinine Ratio 19.2 H (14-18) Glucose 102 (80-115) mg/dL POC Glucose 85 121 H (80-115) mg/dL Calcium 8.4 L (8.5-10.1) mg/dL Magnesium 1.8 (1.8-2.4) mg/dl NT-Pro-B Natriuret Pep 409 H (0-125) pg/mL Med Orders - Current: Current Medications Acetaminophen (Tylenol) 650 mg PO Q4H PRN PRN Reason: Pain (Mild 1-3)/fever Albuterol/Ipratropium (Duoneb 3.0-0.5 Mg/3 Ml) 3 ml NEB Q4H PRN PRN Reason: Shortness Of Breath/wheezing Aspirin (Aspirin) 81 mg PO DAILY [facility] Last Admin: 02/24/17 08:18 Dose: 81 mg Divalproex Sodium (Divalproex Sodium) 1,250 mg PO DAILY [facility] Last Admin: 02/24/17 08:19 Dose: 1,250 mg Docusate Sodium (Colace) 100 mg PO BID PRN PRN Reason: Constipation Fluoxetine HCl (Prozac) 20 mg PO DAILY [facility] Last Admin: 02/24/17 08:19 Dose: 20 mg Furosemide (Lasix) 40 mg PO DAILY [facility] Last Admin: 02/24/17 08:19 Dose: 40 mg Gabapentin (Neurontin) 100 mg PO BID [facility] Last Admin: 02/24/17 08:19 Dose: 100 mg Sodium Chloride (Normal Saline) 1,000 mls @ 100 mls/hr IV ASDIRECTED [facility] Last Admin: 02/24/17 09:30 Dose: 100 mls/hr Insulin Aspart (Novolog) 0 unit SUBCUT QIDACANDBED [facility] PRN Reason: Protocol Last Admin: 02/24/17 12:16 Dose: Not Given Insulin Detemir (Levemir) 27 unit SUBCUT DAILY [facility] Last Admin: 02/24/17 08:20 Dose: 27 units Metoprolol Tartrate (Lopressor) 50 mg PO Q12HR [facility] Last Admin: 02/24/17 08:19 Dose: 50 mg Ondansetron HCl (Zofran Odt) 4 mg PO Q4H PRN PRN Reason: nausea, able to take PO Ondansetron HCl (Zofran) 4 mg IV Q4H PRN PRN Reason: Nausea/Vomiting Oxycodone HCl (Oxycodone) 5 mg PO 0800,1200,1600,2000 [facility] Last Admin: 02/24/17 13:38 Dose: 5 mg Oxycodone/Acetaminophen (Percocet 325-5 Mg) 1 tab PO Q4H PRN PRN Reason: Pain (moderate 4-6) Polyethylene Glycol (Miralax) 17 gm PO DAILY PRN PRN Reason: Constipation Rivaroxaban (Xarelto) 20 mg PO DAILY [facility] Last Admin: 02/24/17 08:18 Dose: 20 mg Sodium Chloride (Saline Flush) 10 ml FLUSH ASDIRECTED PRN PRN Reason: Keep Vein Open Last Admin: 02/22/17 12:34 Dose: 10 ml Tamsulosin HCl (Flomax) 0.4 mg PO DAILY [facility] Last Admin: 02/24/17 08:18 Dose: 0.4 mg Trazodone HCl (Trazodone) 100 mg PO DAILY [facility] Last Admin: 02/24/17 08:21 Dose: 100 mg Trazodone HCl (Trazodone) 200 mg PO BEDTIME [facility] Last Admin: 02/23/17 21:36 Dose: 200 mg Discontinued Medications Hydrocodone Bitart/Acetaminophen ([place] 325-5 Mg) 1 tab PO Q4H PRN PRN Reason: Pain (moderate 4-6) Sodium Chloride (Normal Saline) 500 mls @ 999 mls/hr IV ONETIME ONE Stop: 02/22/17 14:03 Last Admin: 02/22/17 13:39 Dose: 999 mls/hr Sodium Chloride (Normal Saline) Confirm Administered Dose 1,000 mls @ as directed .ROUTE .STK-MED ONE Stop: 02/22/17 13:35 Last Admin: 02/22/17 13:40 Dose: Not Given Sodium Chloride (Normal Saline) 1,000 mls @ 75 mls/hr IV ONETIME ONE Stop: 02/23/17 07:11 Last Admin: 02/22/17 23:34 Dose: Not Given Sodium Chloride (Normal Saline) 1,000 mls @ 100 mls/hr IV ASDIRECTED [facility] Stop: 02/24/17 06:29 Magnesium Sulfate 2 gm/ Premix 50 mls @ 25 mls/hr IV ONETIME ONE Stop: 02/23/17 11:50 Last Admin: 02/23/17 10:23 Dose: 25 mls/hr Lisinopril (Prinivil) 10 mg PO DAILY [facility] Last Admin: 02/23/17 12:34 Dose: Not Given Non-Formulary Medication (Allopurinol [Zyloprim]) 100 mg PO DAILY [facility] Non-Formulary Medication (Ranitidine Hcl [Zantac 75]) 75 mg PO BID [facility] Oxycodone HCl (Oxycodone) 5 mg PO Q6H [facility] Last Admin: 02/23/17 04:53 Dose: Not Given - Plan Plan:: Greatly improved, disposition needs further evaluation.
[2017-02-24] MEDS: oxyCODONE 5 MG Tab PO SCH ×4 (08:17→20:21)
[2017-02-24] MEDS: Rivaroxaban 10 MG Tab PO SCH (08:18)
[2017-02-24] MEDS: Insulin Aspart 100 Units/ML 3 ML Pen SUBCUT SCH ×4 (08:18→22:44)
[2017-02-24] MEDS: Tamsulosin 0.4 MG Cap.ER PO SCH (08:18)
[2017-02-24] MEDS: Aspirin 81 MG Tab.Chew PO SCH (08:18)
[2017-02-24] MEDS: Divalproex Sodium Delayed-Release 250 MG Tab.CR PO SCH (08:19)
[2017-02-24] MEDS: Metoprolol Tartrate 50 MG Tab PO SCH ×2 (08:19→20:15)
[2017-02-24] MEDS: FLUoxetine 20 MG Cap PO SCH (08:19)
[2017-02-24] MEDS: Gabapentin 100 MG Cap PO SCH ×2 (08:19→20:15)
[2017-02-24] MEDS: Furosemide 40 MG Tab PO SCH (08:19)
[2017-02-24] MEDS: Insulin Detemir 100 Units/ML 3 ML Pen SUBCUT SCH (08:20)
[2017-02-24] MEDS: traZODone 50 MG Tab PO SCH ×2 (08:21→20:15)
[2017-02-24] MEDS: Sodium Chloride 0.9% 1,000 ML IV SCH ×3 (09:30→20:41)
[2017-02-24] MEDS ORDERED: Magnesium Sulfate/Water 2 GM in Premix Bag 1 BAG IV ONE (14:43)
--- NOTE | 2017-02-24 15:19 | PCM.PN ---
- General Info Date of Service: 02/24/17 Functional Status: Reports: Tolerating Diet, Urinating - Review of Systems General: Reports: No Symptoms HEENT: Reports: No Symptoms Pulmonary: Reports: No Symptoms Cardiovascular: Reports: No Symptoms Gastrointestinal: Reports: No Symptoms Genitourinary: Reports: No Symptoms Musculoskeletal: Reports: No Symptoms Skin: Reports: No Symptoms Neurological: Reports: Confusion, Weakness (improvong) Psychiatric: Reports: No Symptoms - Patient Data Vitals - Most Recent: Last Vital Signs Temp 36.7 C 02/24/17 11:54 Pulse 60 02/24/17 11:54 Resp 14 02/24/17 11:54 BP 117/61 02/24/17 11:54 Pulse Ox 96 02/24/17 11:54 Weight - Most Recent: 127.323 kg I&O - Last 24 Hours: Intake & Output 02/24/17 02/24/17 02/24/17 06:59 14:59 22:59 Intake Total 1530 120 Output Total 1675 Balance -145 120 Lab Results Last 24 Hours: Laboratory Results - last 24 hr 02/23/17 02/23/17 02/24/17 Range/Units 17:33 21:43 06:01 WBC 4.84 (4.23-9.07) K/mm3 RBC 3.68 L (4.63-6.08) M/mm3 Hgb 11.0 L (13.7-17.5) gm/L Hct 36.0 L (40.1-51.0) % MCV 97.8 H (79.0-92.2) fl MCH 29.9 (25.7-32.2) pg MCHC 30.6 L (32.2-35.5) g/dl RDW Std Deviation 44.8 H (35.1-43.9) fL Plt Count 250 (163-337) K/mm3 MPV 11.0 (9.4-12.3) fl Neut % (Auto) 51.1 (34.0-67.9) % Lymph % (Auto) 30.8 (21.8-53.1) % [place] % (Auto) 13.6 H (5.3-12.2) % Eos % (Auto) 3.7 (0.8-7.0) Baso % (Auto) 0.4 (0.1-1.2) % Neut # (Auto) 2.47 (1.78-5.38) K/mm3 Lymph # (Auto) 1.49 (1.32-3.57) K/mm3 Pine # (Auto) 0.66 (0.30-0.82) K/mm3 Eos # (Auto) 0.18 (0.04-0.54) K/mm3 Baso # (Auto) 0.02 (0.01-0.08) K/mm3 Sodium (136-145) mEq/L Potassium (3.5-5.1) mEq/L Chloride (98-107) mEq/L Carbon Dioxide (21-32) mEq/L Anion Gap (5-15) BUN (7-18) mg/dL Creatinine (0.7-1.3) mg/dL Est Cr Clr Drug Dosing mL/min Estimated GFR (MDRD) (>60) mL/min BUN/Creatinine Ratio (14-18) Glucose (80-115) mg/dL POC Glucose 99 152 H (80-115) mg/dL Calcium (8.5-10.1) mg/dL Magnesium (1.8-2.4) mg/dl NT-Pro-B Natriuret Pep (0-125) pg/mL 02/24/17 02/24/17 02/24/17 Range/Units 06:01 06:26 11:54 WBC (4.23-9.07) K/mm3 RBC (4.63-6.08) M/mm3 Hgb (13.7-17.5) gm/L Hct (40.1-51.0) % MCV (79.0-92.2) fl MCH (25.7-32.2) pg MCHC (32.2-35.5) g/dl RDW Std Deviation (35.1-43.9) fL Plt Count (163-337) K/mm3 MPV (9.4-12.3) fl Neut % (Auto) (34.0-67.9) % Lymph % (Auto) (21.8-53.1) % Pine % (Auto) (5.3-12.2) % Eos % (Auto) (0.8-7.0) Baso % (Auto) (0.1-1.2) % Neut # (Auto) (1.78-5.38) K/mm3 Lymph # (Auto) (1.32-3.57) K/mm3 Pine # (Auto) (0.30-0.82) K/mm3 Eos # (Auto) (0.04-0.54) K/mm3 Baso # (Auto) (0.01-0.08) K/mm3 Sodium 144 (136-145) mEq/L Potassium 4.3 (3.5-5.1) mEq/L Chloride 106 (98-107) mEq/L Carbon Dioxide 33 H (21-32) mEq/L Anion Gap 9.3 (5-15) BUN 25 H (7-18) mg/dL Creatinine 1.3 (0.7-1.3) mg/dL Est Cr Clr Drug Dosing 65.50 mL/min Estimated GFR (MDRD) 56 (>60) mL/min BUN/Creatinine Ratio 19.2 H (14-18) Glucose 102 (80-115) mg/dL POC Glucose 85 121 H (80-115) mg/dL Calcium 8.4 L (8.5-10.1) mg/dL Magnesium 1.8 (1.8-2.4) mg/dl NT-Pro-B Natriuret Pep 409 H (0-125) pg/mL Med Orders - Current: Current Medications Acetaminophen (Tylenol) 650 mg PO Q4H PRN PRN Reason: Pain (Mild 1-3)/fever Albuterol/Ipratropium (Duoneb 3.0-0.5 Mg/3 Ml) 3 ml NEB Q4H PRN PRN Reason: Shortness Of Breath/wheezing Aspirin (Aspirin) 81 mg PO DAILY [facility] Last Admin: 02/24/17 08:18 Dose: 81 mg Divalproex Sodium (Divalproex Sodium) 1,250 mg PO DAILY [facility] Last Admin: 02/24/17 08:19 Dose: 1,250 mg Docusate Sodium (Colace) 100 mg PO BID PRN PRN Reason: Constipation Fluoxetine HCl (Prozac) 20 mg PO DAILY [facility] Last Admin: 02/24/17 08:19 Dose: 20 mg Furosemide (Lasix) 40 mg PO DAILY [facility] Last Admin: 02/24/17 08:19 Dose: 40 mg Gabapentin (Neurontin) 100 mg PO BID [facility] Last Admin: 02/24/17 08:19 Dose: 100 mg Sodium Chloride (Normal Saline) 1,000 mls @ 75 mls/hr IV ASDIRECTED [facility] Last Admin: 02/24/17 09:30 Dose: 100 mls/hr Magnesium Sulfate 2 gm/ Premix 50 mls @ 25 mls/hr IV ONETIME ONE Stop: 02/24/17 16:42 Insulin Aspart (Novolog) 0 unit SUBCUT QIDACANDBED [facility] PRN Reason: Protocol Last Admin: 02/24/17 12:16 Dose: Not Given Insulin Detemir (Levemir) 27 unit SUBCUT DAILY [facility] Last Admin: 02/24/17 08:20 Dose: 27 units Metoprolol Tartrate (Lopressor) 50 mg PO Q12HR [facility] Last Admin: 02/24/17 08:19 Dose: 50 mg Ondansetron HCl (Zofran Odt) 4 mg PO Q4H PRN PRN Reason: nausea, able to take PO Ondansetron HCl (Zofran) 4 mg IV Q4H PRN PRN Reason: Nausea/Vomiting Oxycodone HCl (Oxycodone) 5 mg PO 0800,1200,1600,2000 [facility] Last Admin: 02/24/17 13:38 Dose: 5 mg Oxycodone/Acetaminophen (Percocet 325-5 Mg) 1 tab PO Q4H PRN PRN Reason: Pain (moderate 4-6) Polyethylene Glycol (Miralax) 17 gm PO DAILY PRN PRN Reason: Constipation Rivaroxaban (Xarelto) 20 mg PO DAILY [facility] Last Admin: 02/24/17 08:18 Dose: 20 mg Sodium Chloride (Saline Flush) 10 ml FLUSH ASDIRECTED PRN PRN Reason: Keep Vein Open Last Admin: 02/22/17 12:34 Dose: 10 ml Tamsulosin HCl (Flomax) 0.4 mg PO DAILY [facility] Last Admin: 02/24/17 08:18 Dose: 0.4 mg Trazodone HCl (Trazodone) 100 mg PO DAILY [facility] Last Admin: 02/24/17 08:21 Dose: 100 mg Trazodone HCl (Trazodone) 200 mg PO BEDTIME [facility] Last Admin: 02/23/17 21:36 Dose: 200 mg Discontinued Medications Hydrocodone Bitart/Acetaminophen ([place] 325-5 Mg) 1 tab PO Q4H PRN PRN Reason: Pain (moderate 4-6) Sodium Chloride (Normal Saline) 500 mls @ 999 mls/hr IV ONETIME ONE Stop: 02/22/17 14:03 Last Admin: 02/22/17 13:39 Dose: 999 mls/hr Sodium Chloride (Normal Saline) Confirm Administered Dose 1,000 mls @ as directed .ROUTE .STK-MED ONE Stop: 02/22/17 13:35 Last Admin: 02/22/17 13:40 Dose: Not Given Sodium Chloride (Normal Saline) 1,000 mls @ 75 mls/hr IV ONETIME ONE Stop: 02/23/17 07:11 Last Admin: 02/22/17 23:34 Dose: Not Given Sodium Chloride (Normal Saline) 1,000 mls @ 100 mls/hr IV ASDIRECTED [facility] Stop: 02/24/17 06:29 Magnesium Sulfate 2 gm/ Premix 50 mls @ 25 mls/hr IV ONETIME ONE Stop: 02/23/17 11:50 Last Admin: 02/23/17 10:23 Dose: 25 mls/hr Lisinopril (Prinivil) 10 mg PO DAILY [facility] Last Admin: 02/23/17 12:34 Dose: Not Given Non-Formulary Medication (Allopurinol [Zyloprim]) 100 mg PO DAILY [facility] Non-Formulary Medication (Ranitidine Hcl [Zantac 75]) 75 mg PO BID [facility] Oxycodone HCl (Oxycodone) 5 mg PO Q6H [facility] Last Admin: 02/23/17 04:53 Dose: Not Given - Exam Quality Assessment: DVT Prophylaxis General: Alert, Oriented, Cooperative, No Acute Distress HEENT: Pupils Equal, Pupils Reactive, EOMI Neck: Supple, Trachea Midline Lungs: Normal Respiratory Effort Cardiovascular: Regular Rate, Regular Rhythm GI/Abdominal Exam: Normal Bowel Sounds, Soft, Non-Tender, No Organomegaly, No Distention (Male) Exam: Deferred Back Exam: Normal Inspection Extremities: Normal Inspection Skin: Warm Neurological: No New Focal Deficit Psy/Mental Status: Alert, Depressed - Problem List Review Problem List Initiated/Reviewed/Updated: Yes - My Orders Last 24 Hours: My Active Orders 02/24/17 14:43 Magnesium Sulfate/Water [Magnesium Sulfate 2 GM in Water 50 ML] 2 gm Premix Bag 1 bag IV ONETIME - Plan Plan:: Impression: ARF -Creatinine 3.6--->Cr <1.3 after hydration -eGFR 17 -Questioning patients fluid intake 2/2 confusion -Hx/o ARF with creatinine at - Sep, 2016 -Normal renal function in December -Will hold as many nephrotoxic medications as possible Confusion -Patient has mild confusion at baseline -More confused upon presentation to ED - questioning 2/2 ARF, improved once admitted to floor per ED provider -Negative UA -UDS presumptive positive for oxycodone (which he is prescribed), all others negative in ED -Ethyl alcohol 0.00 in ED -In previous charts it was noted patient has been poorly compliant with his medications -[facility] patient - unsure if they manage his medications -Multiple psychiatric medications -Consider Dr. Magana consult if needed. Chronic: Type II DM -Will hold metformin for now due to ARF -Sliding scale insulin as indicated -Continue home basal insulin -Blood sugar checks as indicated -Glucose 98 in ED -Diabetic diet Hx/o [place] with stent placement Depression Sleep apnea Chronic back pain - pain meds as indicated CVA Left hand tremor Memory impairment Insomnia Plan: Review meds, DC as needed to avoid polypharmacy SW/CM for discharge planning Routine AM labs PT/OT DVT/PE prophylaxis - KAY hose Other orders as indicated above Home medications as indicated
[2017-02-25] MEDS: Acetaminophen/oxyCODONE 325-5 MG Tab PO PRN (01:00)
[2017-02-25] MEDS: Insulin Aspart 100 Units/ML 3 ML Pen SUBCUT SCH ×4 (07:34→21:20)
[2017-02-25] MEDS: oxyCODONE 5 MG Tab PO SCH ×4 (08:25→21:18)
[2017-02-25] MEDS: Furosemide 40 MG Tab PO SCH (08:26)
[2017-02-25] MEDS: Tamsulosin 0.4 MG Cap.ER PO SCH (08:26)
[2017-02-25] MEDS: Aspirin 81 MG Tab.Chew PO SCH (08:26)
[2017-02-25] MEDS: Gabapentin 100 MG Cap PO SCH ×2 (08:26→21:18)
[2017-02-25] MEDS: Insulin Detemir 100 Units/ML 3 ML Pen SUBCUT SCH (08:29)
[2017-02-25] MEDS: traZODone 50 MG Tab PO SCH ×2 (08:30→21:18)
[2017-02-25] MEDS: Rivaroxaban 10 MG Tab PO SCH (08:30)
[2017-02-25] MEDS: FLUoxetine 20 MG Cap PO SCH (08:31)
[2017-02-25] MEDS: Divalproex Sodium Delayed-Release 250 MG Tab.CR PO SCH (08:31)
[2017-02-25] MEDS: Metoprolol Tartrate 50 MG Tab PO SCH ×2 (08:31→21:17)
[2017-02-25] MEDS: Sodium Chloride 0.9% 1,000 ML IV SCH ×2 (10:30→21:22)
--- NOTE | 2017-02-25 11:36 | PCM.PN ---
- General Info Date of Service: 02/25/17 Functional Status: Reports: Tolerating Diet - Review of Systems General: Reports: Weakness HEENT: Reports: No Symptoms Pulmonary: Reports: No Symptoms Cardiovascular: Reports: No Symptoms Gastrointestinal: Reports: No Symptoms Genitourinary: Reports: No Symptoms Musculoskeletal: Reports: No Symptoms Skin: Reports: No Symptoms Neurological: Reports: No Symptoms Psychiatric: Reports: No Symptoms - Patient Data Vitals - Most Recent: Last Vital Signs Temp 36.8 C 02/25/17 08:22 Pulse 68 02/25/17 08:31 Resp 14 02/25/17 08:22 BP 142/72 H 02/25/17 08:31 Pulse Ox 96 02/25/17 08:22 Weight - Most Recent: 127.414 kg I&O - Last 24 Hours: Intake & Output 02/24/17 02/25/17 02/25/17 22:59 06:59 14:59 Intake Total 2170 1165 Output Total 1450 1475 Balance 720 -310 Lab Results Last 24 Hours: Laboratory Results - last 24 hr 02/24/17 02/24/17 02/24/17 Range/Units 11:54 17:49 21:28 WBC (4.23-9.07) K/mm3 RBC (4.63-6.08) M/mm3 Hgb (13.7-17.5) gm/L Hct (40.1-51.0) % MCV (79.0-92.2) fl MCH (25.7-32.2) pg MCHC (32.2-35.5) g/dl RDW Std Deviation (35.1-43.9) fL Plt Count (163-337) K/mm3 MPV (9.4-12.3) fl Neut % (Auto) (34.0-67.9) % Lymph % (Auto) (21.8-53.1) % [place] % (Auto) (5.3-12.2) % Eos % (Auto) (0.8-7.0) Baso % (Auto) (0.1-1.2) % Neut # (Auto) (1.78-5.38) K/mm3 Lymph # (Auto) (1.32-3.57) K/mm3 [place] # (Auto) (0.30-0.82) K/mm3 Eos # (Auto) (0.04-0.54) K/mm3 Baso # (Auto) (0.01-0.08) K/mm3 Sodium (136-145) mEq/L Potassium (3.5-5.1) mEq/L Chloride (98-107) mEq/L Carbon Dioxide (21-32) mEq/L Anion Gap (5-15) BUN (7-18) mg/dL Creatinine (0.7-1.3) mg/dL Est Cr Clr Drug Dosing mL/min Estimated GFR (MDRD) (>60) mL/min BUN/Creatinine Ratio (14-18) Glucose (80-115) mg/dL POC Glucose 121 H 110 144 H (80-115) mg/dL Calcium (8.5-10.1) mg/dL Magnesium (1.8-2.4) mg/dl 02/25/17 02/25/17 02/25/17 Range/Units 06:00 06:00 06:35 WBC 4.86 (4.23-9.07) K/mm3 RBC 3.79 L (4.63-6.08) M/mm3 Hgb 11.4 L (13.7-17.5) gm/L Hct 36.8 L (40.1-51.0) % MCV 97.1 H (79.0-92.2) fl MCH 30.1 (25.7-32.2) pg MCHC 31.0 L (32.2-35.5) g/dl RDW Std Deviation 44.4 H (35.1-43.9) fL Plt Count 245 (163-337) K/mm3 MPV 11.0 (9.4-12.3) fl Neut % (Auto) 51.2 (34.0-67.9) % Lymph % (Auto) 30.5 (21.8-53.1) % [place] % (Auto) 13.0 H (5.3-12.2) % Eos % (Auto) 4.5 (0.8-7.0) Baso % (Auto) 0.6 (0.1-1.2) % Neut # (Auto) 2.49 (1.78-5.38) K/mm3 Lymph # (Auto) 1.48 (1.32-3.57) K/mm3 [place] # (Auto) 0.63 (0.30-0.82) K/mm3 Eos # (Auto) 0.22 (0.04-0.54) K/mm3 Baso # (Auto) 0.03 (0.01-0.08) K/mm3 Sodium 142 (136-145) mEq/L Potassium 4.4 (3.5-5.1) mEq/L Chloride 106 (98-107) mEq/L Carbon Dioxide 30 (21-32) mEq/L Anion Gap 10.4 (5-15) BUN 19 H (7-18) mg/dL Creatinine 1.3 (0.7-1.3) mg/dL Est Cr Clr Drug Dosing 65.50 mL/min Estimated GFR (MDRD) 56 (>60) mL/min BUN/Creatinine Ratio 14.6 (14-18) Glucose 99 (80-115) mg/dL POC Glucose 89 (80-115) mg/dL Calcium 8.9 (8.5-10.1) mg/dL Magnesium 1.8 (1.8-2.4) mg/dl 02/25/ Range/Units 11:01 WBC (4.23-9.07) K/mm3 RBC (4.63-6.08) M/mm3 Hgb (13.7-17.5) gm/L Hct (40.1-51.0) % MCV (79.0-92.2) fl MCH (25.7-32.2) pg MCHC (32.2-35.5) g/dl RDW Std Deviation (35.1-43.9) fL Plt Count (163-337) K/mm3 MPV (9.4-12.3) fl Neut % (Auto) (34.0-67.9) % Lymph % (Auto) (21.8-53.1) % [place] % (Auto) (5.3-12.2) % Eos % (Auto) (0.8-7.0) Baso % (Auto) (0.1-1.2) % Neut # (Auto) (1.78-5.38) K/mm3 Lymph # (Auto) (1.32-3.57) K/mm3 [place] # (Auto) (0.30-0.82) K/mm3 Eos # (Auto) (0.04-0.54) K/mm3 Baso # (Auto) (0.01-0.08) K/mm3 Sodium (136-145) mEq/L Potassium (3.5-5.1) mEq/L Chloride (98-107) mEq/L Carbon Dioxide (21-32) mEq/L Anion Gap (5-15) BUN (7-18) mg/dL Creatinine (0.7-1.3) mg/dL Est Cr Clr Drug Dosing mL/min Estimated GFR (MDRD) (>60) mL/min BUN/Creatinine Ratio (14-18) Glucose (80-115) mg/dL POC Glucose 115 (80-115) mg/dL Calcium (8.5-10.1) mg/dL Magnesium (1.8-2.4) mg/dl Med Orders - Current: Current Medications Acetaminophen (Tylenol) 650 mg PO Q4H PRN PRN Reason: Pain (Mild 1-3)/fever Albuterol/Ipratropium (Duoneb 3.0-0.5 Mg/3 Ml) 3 ml NEB Q4H PRN PRN Reason: Shortness Of Breath/wheezing Aspirin (Aspirin) 81 mg PO DAILY [facility] Last Admin: 02/25/17 08:26 Dose: 81 mg Divalproex Sodium (Divalproex Sodium) 1,250 mg PO DAILY [facility] Last Admin: 02/25/17 08:31 Dose: 1,250 mg Docusate Sodium (Colace) 100 mg PO BID PRN PRN Reason: Constipation Fluoxetine HCl (Prozac) 20 mg PO DAILY [facility] Last Admin: 02/25/17 08:31 Dose: 20 mg Furosemide (Lasix) 40 mg PO DAILY [facility] Last Admin: 02/25/17 08:26 Dose: 40 mg Gabapentin (Neurontin) 100 mg PO BID [facility] Last Admin: 02/25/17 08:26 Dose: 100 mg Sodium Chloride (Normal Saline) 1,000 mls @ 75 mls/hr IV ASDIRECTED [facility] Last Admin: 02/25/17 10:30 Dose: 75 mls/hr Insulin Aspart (Novolog) 0 unit SUBCUT QIDACANDBED [facility] PRN Reason: Protocol Last Admin: 02/25/17 11:02 Dose: Not Given Insulin Detemir (Levemir) 27 unit SUBCUT DAILY [facility] Last Admin: 02/25/17 08:29 Dose: 27 units Metoprolol Tartrate (Lopressor) 50 mg PO Q12HR [facility] Last Admin: 02/25/17 08:31 Dose: 50 mg Ondansetron HCl (Zofran Odt) 4 mg PO Q4H PRN PRN Reason: nausea, able to take PO Ondansetron HCl (Zofran) 4 mg IV Q4H PRN PRN Reason: Nausea/Vomiting Oxycodone HCl (Oxycodone) 5 mg PO 0800,1200,1600,2000 [facility] Last Admin: 02/25/17 11:02 Dose: 5 mg Oxycodone/Acetaminophen (Percocet 325-5 Mg) 1 tab PO Q4H PRN PRN Reason: Pain (moderate 4-6) Last Admin: 02/25/17 01:00 Dose: 1 tab Polyethylene Glycol (Miralax) 17 gm PO DAILY PRN PRN Reason: Constipation Rivaroxaban (Xarelto) 20 mg PO DAILY [facility] Last Admin: 02/25/17 08:30 Dose: 20 mg Sodium Chloride (Saline Flush) 10 ml FLUSH ASDIRECTED PRN PRN Reason: Keep Vein Open Last Admin: 02/22/17 12:34 Dose: 10 ml Tamsulosin HCl (Flomax) 0.4 mg PO DAILY [facility] Last Admin: 02/25/17 08:26 Dose: 0.4 mg Trazodone HCl (Trazodone) 100 mg PO DAILY [facility] Last Admin: 02/25/17 08:30 Dose: 100 mg Trazodone HCl (Trazodone) 200 mg PO BEDTIME [facility] Last Admin: 02/24/17 20:15 Dose: 200 mg Discontinued Medications Hydrocodone Bitart/Acetaminophen ([place] 325-5 Mg) 1 tab PO Q4H PRN PRN Reason: Pain (moderate 4-6) Sodium Chloride (Normal Saline) 500 mls @ 999 mls/hr IV ONETIME ONE Stop: 02/22/17 14:03 Last Admin: 02/22/17 13:39 Dose: 999 mls/hr Sodium Chloride (Normal Saline) Confirm Administered Dose 1,000 mls @ as directed .ROUTE .STK-MED ONE Stop: 02/22/17 13:35 Last Admin: 02/22/17 13:40 Dose: Not Given Sodium Chloride (Normal Saline) 1,000 mls @ 75 mls/hr IV ONETIME ONE Stop: 02/23/17 07:11 Last Admin: 02/22/17 23:34 Dose: Not Given Sodium Chloride (Normal Saline) 1,000 mls @ 100 mls/hr IV ASDIRECTED [facility] Stop: 02/24/17 06:29 Sodium Chloride (Normal Saline) 1,000 mls @ 75 mls/hr IV ASDIRECTED [facility] Last Admin: 02/24/17 20:10 Dose: 100 mls/hr Magnesium Sulfate 2 gm/ Premix 50 mls @ 25 mls/hr IV ONETIME ONE Stop: 02/23/17 11:50 Last Admin: 02/23/17 10:23 Dose: 25 mls/hr Magnesium Sulfate 2 gm/ Premix 50 mls @ 25 mls/hr IV ONETIME ONE Stop: 02/24/17 16:42 Last Admin: 02/24/17 15:24 Dose: 25 mls/hr Lisinopril (Prinivil) 10 mg PO DAILY [facility] Last Admin: 02/23/17 12:34 Dose: Not Given Non-Formulary Medication (Allopurinol [Zyloprim]) 100 mg PO DAILY [facility] Non-Formulary Medication (Ranitidine Hcl [Zantac 75]) 75 mg PO BID [facility] Oxycodone HCl (Oxycodone) 5 mg PO Q6H [facility] Last Admin: 02/23/17 04:53 Dose: Not Given - Exam Quality Assessment: DVT Prophylaxis General: Alert, Oriented, No Acute Distress HEENT: Pupils Equal, Pupils Reactive, EOMI Neck: Supple, Trachea Midline Lungs: Normal Respiratory Effort Cardiovascular: Regular Rate, Regular Rhythm GI/Abdominal Exam: Normal Bowel Sounds, Soft, Non-Tender, No Organomegaly, No Distention (Male) Exam: Deferred Back Exam: Normal Inspection Extremities: Normal Inspection Skin: Warm Neurological: No New Focal Deficit Psy/Mental Status: Alert - Problem List Review Problem List Initiated/Reviewed/Updated: Yes - My Orders Last 24 Hours: My Active Orders 02/24/17 20:30 Sodium Chloride 0.9% [Normal Saline] 1,000 ml IV ASDIRECTED - Plan Plan:: Impression: ARF -Creatinine 3.6--->Cr <1.3 after hydration -Questioning patients fluid intake 2/2 confusion -Hx/o ARF with creatinine at - Sep, 2016 -Normal renal function in December -Will hold as many nephrotoxic medications as possible Confusion -Patient has mild confusion at baseline -More confused upon presentation to ED --->now at apparent baseline. -Negative UA -UDS presumptive positive for oxycodone (which he is prescribed), all others negative in ED -Ethyl alcohol 0.00 in ED -In previous charts it was noted patient has been poorly compliant with his medications -[facility] patient - unsure if they manage his medications -Multiple psychiatric medications -Consider Dr. Magana consult if needed. Chronic: Type II DM -Will hold metformin for now due to ARF -Sliding scale insulin as indicated -Continue home basal insulin -Blood sugar checks as indicated -Glucose 98 in ED -Diabetic diet Hx/o [place] with stent placement Depression Sleep apnea Chronic back pain - pain meds as indicated CVA Left hand tremor Memory impairment Insomnia Plan: Review meds, DC as needed to avoid polypharmacy SW/CM for discharge planning Routine AM labs PT/OT DVT/PE prophylaxis - KAY granados Other orders as indicated above Home medications as indicated DC on Sunday, 02/26
[2017-02-25] MEDS ORDERED: Magnesium Sulfate/Water 2 GM in Premix Bag 1 BAG IV ONE (13:33)
[2017-02-26] MEDS: Acetaminophen/oxyCODONE 325-5 MG Tab PO PRN (03:34)
[2017-02-26] MEDS: Insulin Aspart 100 Units/ML 3 ML Pen SUBCUT SCH ×2 (06:36→11:29)
[2017-02-26 08:38] VITALS: BP 144/83
[2017-02-26] MEDS: traZODone 50 MG Tab PO SCH (08:41)
[2017-02-26] MEDS: Aspirin 81 MG Tab.Chew PO SCH (08:41)
[2017-02-26] MEDS: Rivaroxaban 10 MG Tab PO SCH (08:41)
[2017-02-26] MEDS: oxyCODONE 5 MG Tab PO SCH ×2 (08:41→12:21)
[2017-02-26] MEDS: Metoprolol Tartrate 50 MG Tab PO SCH (08:42)
[2017-02-26] MEDS: Divalproex Sodium Delayed-Release 250 MG Tab.CR PO SCH (08:42)
[2017-02-26] MEDS: Tamsulosin 0.4 MG Cap.ER PO SCH (08:42)
[2017-02-26] MEDS: Gabapentin 100 MG Cap PO SCH (08:42)
[2017-02-26] MEDS: Furosemide 40 MG Tab PO SCH (08:42)
[2017-02-26] MEDS: FLUoxetine 20 MG Cap PO SCH (08:42)
[2017-02-26] MEDS: Insulin Detemir 100 Units/ML 3 ML Pen SUBCUT SCH (08:43)
--- NOTE | 2017-02-26 11:30 | PCM.DCSUM1 ---
<Melissa Browne - Last Filed: 02/26/17 11:30> Discharge Summary - Hospital Course Free Text/Narrative:: Gordon Mcguire is a 61 yo male who presented today to our ED with confusion. He was reportedly brought here by a friend. He is a PACE patient who had labs drawn on and were abnormal.. An appointment was scheduled today with his PACE provider in [place], however PACE staff decided to have him come to our ED instead. On arrival he was very confused and was not able to tell the ED provider why he is here. His labs drawn on were sent with: WBC 5.9, RBC 3.99, Hgb 12.4, HCT 40. Glucose 98, BUN 28, creatinine 2.6, sodium 142, potassium 3.9, chloride 99, CO2 33, anion gap 14, AST 14, ALT 24, bilirubin 0.3 , CK 27. BNP was 270. The patient has a very long medication list. he presented in September of this year and was diagnosed with a ARF with a creatinine of 6. He was sent to [place] for treatment. He presented in December had normal kidney function. In the ED he was afebrile with a temp of 97.8F. pulse was 73, respirations 20, BP 118/63, pulse ox 93%. an EKG was obtained showing a normal sinus rhythm at 68 bpm. There was some ST elevation however this was compared to a previous EKG from December and no acute changes were appreciated. Labs were obtained: WBC 5.7, hemoglobin 11.6, hematocrit 36.7, platelet 241,000. neutrophils were elevated at 70. There is no bandemia. Sodium was normal at 141. Potassium normal at 4.6. Chloride 102. Anion gap on the high end of normal at 14.6. BUN was high at 47. Creatinine was high at 23.6. EGFR was very low at 17. Glucose is normal at 98, calcium low at 8.4, bilirubin normal at 0.3. Liver enzymes were AST 16, ALT 17, alkaline phosphatase low at 38. Troponin was negative. BNP was elevated at 3.98 albumin was low at 3.1. UA was negative. Drug screen was presumptive positive for oxycodone. The patient is on this normally. All others were negative. Ailyn alcohol was 0.00. portable chest x- ray reveals cardiomegaly with no acute infiltrates or effusions. he was given a [address] male [address] bolus. Head CT was negative for acute findings. He carries a history of prior NC with stent placement, sleep apnea, lower back fusion, CVA, left hand tremor, memory impairment, depression, insomnia, and type II DM. He is a nonsmoker. He subsequently admitted to the medical floor for observation. He is a full code. His PCP is Dr. Lloyd - Discharge Data Discharge Date: 02/26/17 Discharge Disposition: Home, Self-Care 01 Condition: Fair - Discharge Diagnosis/Problem(s) (1) Acute renal failure SNOMED Code(s): 27898021 ICD Code: N17.9 - ACUTE KIDNEY FAILURE, UNSPECIFIED Status: Resolved Priority: High QualifierTitle: Acute renal failure type: unspecified Qualified Code(s): N17.9 - Acute kidney failure, unspecified (2) Altered level of consciousness SNOMED Code(s): 9869178 ICD Code: R40.4 - TRANSIENT ALTERATION OF AWARENESS Status: Resolved Priority: High (3) Hypomagnesemia SNOMED Code(s): 525139393 ICD Code: E83.42 - HYPOMAGNESEMIA Status: Acute Priority: Medium Onset Date: 07/21/15 Problem Details: - Replete prior to d/c (4) Diabetes mellitus type 2 in obese SNOMED Code(s): 08615589 ICD Code: E11.9 - TYPE 2 DIABETES MELLITUS WITHOUT COMPLICATIONS; E66.9 - OBESITY, UNSPECIFIED Status: Chronic Priority: High - Patient Summary/Data Operative Procedure(s) Performed: None Complications: None Consults: None Labs Pending at D/C: None Recommended Follow-up Testing/Procedures: Check blood sugars before meals, at bedtime and as needed. Family requests that PACE ([phone]) is notified when Pt. is discharged & going home. Drink at least 8-10 glasses of water per day Follow up with PCP within one week of discharge Planned Operative Procedure(s) after DC: None Hospital Course: As above - Patient Instructions Diet: Diabetic Diet Activity: As Tolerated Driving: Do Not Drive Showering/Bathing: May Shower Notify Provider of: Fever, Increased Pain, Swelling and Redness, Nausea and/or Vomiting - Discharge Plan Home Medications: Home Meds Allopurinol [Zyloprim] 100 mg PO DAILY 09/16/13 [History] Aspirin [Sofie Chewable Aspirin] 81 mg PO DAILY 09/16/13 [History] FLUoxetine HCl [Fluoxetine] 20 mg PO DAILY 09/16/13 [History] Ranitidine HCl [Zantac 75] 75 mg PO BID 09/16/13 [History] Tamsulosin [Flomax] 0.4 mg PO DAILY 09/16/13 [History] Acetaminophen [Tylenol Arthritis Pain] 2 tab PO BID PRN 07/17/15 [History] Multivit with Min #53/FA/K/Q10 [Dekas Plus Softgel] 1 tab PO DAILY 07/17/15 [ History] Rivaroxaban [Xarelto] 20 mg PO DAILY #30 tablet 07/21/15 [Rx] Divalproex Sodium [Depakote ER] 1,250 mg PO DAILY 09/20/16 [History] oxyCODONE HCl [Roxicodone] 5 mg PO Q6H 09/20/16 [History] Cyclobenzaprine [Flexeril] 10 mg PO BID 12/18/16 [History] SUMAtriptan [Imitrex] 50 mg PO BID PRN 12/18/16 [History] Fluticasone Propionate [Flonase] 2 sprays NASBOTH DAILY 12/19/16 [History] Furosemide 40 mg PO DAILY 12/19/16 [History] Gabapentin [Neurontin] 100 mg PO BID 12/19/16 [History] Lisinopril 10 mg PO DAILY 12/19/16 [History] oxyCODONE HCl/Acetaminophen [Percocet 5-325 mg Tablet] 1 tab PO Q4HR PRN [History] Fenofibrate Nanocrystallized [Tricor] 145 mg PO DAILY #30 tablet 12/21/16 [Rx] Metoprolol Tartrate [Lopressor] 50 mg PO Q12HR #60 tablet 12/21/16 [Rx] metFORMIN [Glucophage] 1,000 mg PO BIDMEALS #60 tablet 12/21/16 [Rx] Insulin Glargine,Hum.Rec.Anlog [Basaglar Kwikpen U-100] 27 units INJECT DAILY [History] atorvaSTATin [Lipitor] 20 mg PO BEDTIME 02/22/17 [History] traZODone 200 mg PO BEDTIME tablet 02/26/17 [Rx] traZODone HCl [Trazodone HCl] 100 mg PO DAILY #0 02/26/17 [Rx] Patient Handouts: Acute Kidney Injury, Type 2 Diabetes Mellitus, Adult, Hypomagnesemia, Obesity Forms: ED Department Discharge Referrals: Abisai Lloyd MD [Primary Care Provider] - 03/05/17 4:00 pm (Please follow up with Dr. Lloyd on SundayMarch 05 at 4:00pm) - Discharge Summary/Plan Comment DC Time >30 min.: Yes (40 min) - General Info Date of Service: 02/26/17 Admission Dx/Problem (Free Text: Acute Renal Failure, AMS Patient doing well. Labs and VS stable this am. Plans for DC today with family; home with PACE services. Functional Status: Reports: Pain Controlled, Tolerating Diet, Ambulating, Urinating. Denies: New Symptoms - Review of Systems General: Reports: No Symptoms HEENT: Reports: No Symptoms Pulmonary: Reports: No Symptoms Cardiovascular: Reports: No Symptoms Gastrointestinal: Reports: No Symptoms Genitourinary: Reports: No Symptoms Musculoskeletal: Reports: No Symptoms Skin: Reports: No Symptoms Neurological: Reports: No Symptoms Psychiatric: Reports: No Symptoms - Patient Data Vitals - Most Recent: Last Vital Signs Temp 98.2 F 02/26/17 08:05 Pulse 76 02/26/17 08:42 Resp 18 02/26/17 08:05 BP 144/83 H 02/26/17 08:42 Pulse Ox 91 L 02/26/17 08:05 Weight - Most Recent: 126.325 kg I&O - Last 24 hours: Intake & Output 02/25/17 02/26/17 02/26/17 22:59 06:59 14:59 Intake Total 2088 1375 Output Total 2300 2050 Balance -212 -675 Lab Results - Last 24 hrs: Laboratory Results - last 24 hr 02/25/17 02/25/17 02/25/17 Range/Units 06:00 17:14 20:52 WBC (4.23-9.07) K/mm3 RBC (4.63-6.08) M/mm3 Hgb (13.7-17.5) gm/L Hct (40.1-51.0) % MCV (79.0-92.2) fl MCH (25.7-32.2) pg MCHC (32.2-35.5) g/dl RDW Std Deviation (35.1-43.9) fL Plt Count (163-337) K/mm3 MPV (9.4-12.3) fl Neut % (Auto) (34.0-67.9) % Lymph % (Auto) (21.8-53.1) % Clare % (Auto) (5.3-12.2) % Eos % (Auto) (0.8-7.0) Baso % (Auto) (0.1-1.2) % Neut # (Auto) (1.78-5.38) K/mm3 Lymph # (Auto) (1.32-3.57) K/mm3 Clare # (Auto) (0.30-0.82) K/mm3 Eos # (Auto) (0.04-0.54) K/mm3 Baso # (Auto) (0.01-0.08) K/mm3 Sodium (136-145) mEq/L Potassium (3.5-5.1) mEq/L Chloride (98-107) mEq/L Carbon Dioxide (21-32) mEq/L Anion Gap (5-15) BUN (7-18) mg/dL Creatinine (0.7-1.3) mg/dL Est Cr Clr Drug Dosing mL/min Estimated GFR (MDRD) (>60) mL/min BUN/Creatinine Ratio (14-18) Glucose (80-115) mg/dL POC Glucose 104 137 H (80-115) mg/dL Calcium (8.5-10.1) mg/dL Magnesium (1.8-2.4) mg/dl NT-Pro-B Natriuret Pep 274 H (0-125) pg/mL 02/26/17 02/26/17 02/26/17 Range/Units 06:16 06:33 06:33 WBC 6.71 (4.23-9.07) K/mm3 RBC 4.38 L (4.63-6.08) M/mm3 Hgb 13.3 L (13.7-17.5) gm/L Hct 42.0 (40.1-51.0) % MCV 95.9 H (79.0-92.2) fl MCH 30.4 (25.7-32.2) pg MCHC 31.7 L (32.2-35.5) g/dl RDW Std Deviation 44.4 H (35.1-43.9) fL Plt Count 277 (163-337) K/mm3 MPV 11.1 (9.4-12.3) fl Neut % (Auto) 62.2 (34.0-67.9) % Lymph % (Auto) 23.2 (21.8-53.1) % Clare % (Auto) 10.0 (5.3-12.2) % Eos % (Auto) 3.6 (0.8-7.0) Baso % (Auto) 0.6 (0.1-1.2) % Neut # (Auto) 4.17 (1.78-5.38) K/mm3 Lymph # (Auto) 1.56 (1.32-3.57) K/mm3 Clare # (Auto) 0.67 (0.30-0.82) K/mm3 Eos # (Auto) 0.24 (0.04-0.54) K/mm3 Baso # (Auto) 0.04 (0.01-0.08) K/mm3 Sodium 139 (136-145) mEq/L Potassium 4.6 (3.5-5.1) mEq/L Chloride 103 (98-107) mEq/L Carbon Dioxide 28 (21-32) mEq/L Anion Gap 12.6 (5-15) BUN 17 (7-18) mg/dL Creatinine 1.2 (0.7-1.3) mg/dL Est Cr Clr Drug Dosing 70.95 mL/min Estimated GFR (MDRD) > 60 (>60) mL/min BUN/Creatinine Ratio 14.2 (14-18) Glucose 99 (80-115) mg/dL POC Glucose 84 (80-115) mg/dL Calcium 9.4 (8.5-10.1) mg/dL Magnesium 1.7 L (1.8-2.4) mg/dl NT-Pro-B Natriuret Pep 267 H (0-125) pg/mL Med Orders - Current: Current Medications Acetaminophen (Tylenol) 650 mg PO Q4H PRN PRN Reason: Pain (Mild 1-3)/fever Albuterol/Ipratropium (Duoneb 3.0-0.5 Mg/3 Ml) 3 ml NEB Q4H PRN PRN Reason: Shortness Of Breath/wheezing Aspirin (Aspirin) 81 mg PO DAILY [facility] Last Admin: 02/26/17 08:41 Dose: 81 mg Divalproex Sodium (Divalproex Sodium) 1,250 mg PO DAILY [facility] Last Admin: 02/26/17 08:42 Dose: 1,250 mg Docusate Sodium (Colace) 100 mg PO BID PRN PRN Reason: Constipation Fluoxetine HCl (Prozac) 20 mg PO DAILY [facility] Last Admin: 02/26/17 08:42 Dose: 20 mg Furosemide (Lasix) 40 mg PO DAILY [facility] Last Admin: 02/26/17 08:42 Dose: 40 mg Gabapentin (Neurontin) 100 mg PO BID [facility] Last Admin: 02/26/17 08:42 Dose: 100 mg Sodium Chloride (Normal Saline) 1,000 mls @ 75 mls/hr IV ASDIRECTED [facility] Last Admin: 02/25/17 21:22 Dose: 75 mls/hr Insulin Aspart (Novolog) 0 unit SUBCUT QIDACANDBED [facility] PRN Reason: Protocol Last Admin: 02/26/17 06:36 Dose: Not Given Insulin Detemir (Levemir) 27 unit SUBCUT DAILY [facility] Last Admin: 02/26/17 08:43 Dose: 27 units Metoprolol Tartrate (Lopressor) 50 mg PO Q12HR [facility] Last Admin: 02/26/17 08:42 Dose: 50 mg Ondansetron HCl (Zofran Odt) 4 mg PO Q4H PRN PRN Reason: nausea, able to take PO Ondansetron HCl (Zofran) 4 mg IV Q4H PRN PRN Reason: Nausea/Vomiting Oxycodone HCl (Oxycodone) 5 mg PO 0800,1200,1600,2000 [facility] Last Admin: 02/26/17 08:41 Dose: 5 mg Oxycodone/Acetaminophen (Percocet 325-5 Mg) 1 tab PO Q4H PRN PRN Reason: Pain (moderate 4-6) Last Admin: 02/26/17 03:34 Dose: 1 tab Polyethylene Glycol (Miralax) 17 gm PO DAILY PRN PRN Reason: Constipation Rivaroxaban (Xarelto) 20 mg PO DAILY [facility] Last Admin: 02/26/17 08:41 Dose: 20 mg Sodium Chloride (Saline Flush) 10 ml FLUSH ASDIRECTED PRN PRN Reason: Keep Vein Open Last Admin: 02/22/17 12:34 Dose: 10 ml Tamsulosin HCl (Flomax) 0.4 mg PO DAILY [facility] Last Admin: 02/26/17 08:42 Dose: 0.4 mg Trazodone HCl (Trazodone) 100 mg PO DAILY [facility] Last Admin: 02/26/17 08:41 Dose: 100 mg Trazodone HCl (Trazodone) 200 mg PO BEDTIME [facility] Last Admin: 02/25/17 21:18 Dose: 200 mg Discontinued Medications Hydrocodone Bitart/Acetaminophen (Mcleod 325-5 Mg) 1 tab PO Q4H PRN PRN Reason: Pain (moderate 4-6) Sodium Chloride (Normal Saline) 500 mls @ 999 mls/hr IV ONETIME ONE Stop: 02/22/17 14:03 Last Admin: 02/22/17 13:39 Dose: 999 mls/hr Sodium Chloride (Normal Saline) Confirm Administered Dose 1,000 mls @ as directed .ROUTE .STK-MED ONE Stop: 02/22/17 13:35 Last Admin: 02/22/17 13:40 Dose: Not Given Sodium Chloride (Normal Saline) 1,000 mls @ 75 mls/hr IV ONETIME ONE Stop: 02/23/17 07:11 Last Admin: 02/22/17 23:34 Dose: Not Given Sodium Chloride (Normal Saline) 1,000 mls @ 100 mls/hr IV ASDIRECTED [facility] Stop: 02/24/17 06:29 Sodium Chloride (Normal Saline) 1,000 mls @ 75 mls/hr IV ASDIRECTED [facility] Last Admin: 02/24/17 20:10 Dose: 100 mls/hr Magnesium Sulfate 2 gm/ Premix 50 mls @ 25 mls/hr IV ONETIME ONE Stop: 02/23/17 11:50 Last Admin: 02/23/17 10:23 Dose: 25 mls/hr Magnesium Sulfate 2 gm/ Premix 50 mls @ 25 mls/hr IV ONETIME ONE Stop: 02/24/17 16:42 Last Admin: 02/24/17 15:24 Dose: 25 mls/hr Magnesium Sulfate 2 gm/ Premix 50 mls @ 25 mls/hr IV ONETIME ONE Stop: 02/25/17 15:32 Last Admin: 02/25/17 13:48 Dose: 25 mls/hr Lisinopril (Prinivil) 10 mg PO DAILY [facility] Last Admin: 02/23/17 12:34 Dose: Not Given Non-Formulary Medication (Allopurinol [Zyloprim]) 100 mg PO DAILY [facility] Non-Formulary Medication (Ranitidine Hcl [Zantac 75]) 75 mg PO BID [facility] Oxycodone HCl (Oxycodone) 5 mg PO Q6H [facility] Last Admin: 02/23/17 04:53 Dose: Not Given - Exam Quality Assessment: Reports: DVT Prophylaxis General: Reports: Alert, Cooperative, No Acute Distress HEENT: Reports: Pupils Equal, EOMI, Mucous Membr. Moist/[place] Neck: Reports: Supple Lungs: Reports: Clear to Auscultation, Normal Respiratory Effort Cardiovascular: Reports: Regular Rate, Regular Rhythm GI/Abdominal Exam: Normal Bowel Sounds (Male) Exam: Deferred Rectal (Males) Exam: Deferred Neurological: Reports: No New Focal Deficit Psy/Mental Status: Reports: Alert, Normal Affect, Normal Mood *Q Meaningful Use (DIS) - VTE *Q VTE Criteria *Q: - Stroke *Q Stroke Criteria *Q: - AMI *Q AMI Criteria *Q: <Alana Alvarado - Last Filed: 02/28/17 17:57> Discharge Summary - Hospital Course Free Text/Narrative:: The patient responded well to medical management, he appears to decrease food as well as liquid intake. ARF was treated during this admission; he would benefir from "Meals on Wheels" but has declined the services. Pace will be resumed. - Patient Data Vitals - Most Recent: Last Vital Signs Temp 36.8 C 02/26/17 08:05 Pulse 76 02/26/17 08:42 Resp 18 02/26/17 08:05 BP 144/83 H 02/26/17 08:42 Pulse Ox 91 L 02/26/17 08:05 Med Orders - Current: Current Medications Discontinued Medications Acetaminophen (Tylenol) 650 mg PO Q4H PRN PRN Reason: Pain (Mild 1-3)/fever Hydrocodone Bitart/Acetaminophen (Mcleod 325-5 Mg) 1 tab PO Q4H PRN PRN Reason: Pain (moderate 4-6) Albuterol/Ipratropium (Duoneb 3.0-0.5 Mg/3 Ml) 3 ml NEB Q4H PRN PRN Reason: Shortness Of Breath/wheezing Aspirin (Aspirin) 81 mg PO DAILY [facility] Last Admin: 02/26/17 08:41 Dose: 81 mg Divalproex Sodium (Divalproex Sodium) 1,250 mg PO DAILY [facility] Last Admin: 02/26/17 08:42 Dose: 1,250 mg Docusate Sodium (Colace) 100 mg PO BID PRN PRN Reason: Constipation Fluoxetine HCl (Prozac) 20 mg PO DAILY [facility] Last Admin: 02/26/17 08:42 Dose: 20 mg Furosemide (Lasix) 40 mg PO DAILY [facility] Last Admin: 02/26/17 08:42 Dose: 40 mg Gabapentin (Neurontin) 100 mg PO BID [facility] Last Admin: 02/26/17 08:42 Dose: 100 mg Sodium Chloride (Normal Saline) 500 mls @ 999 mls/hr IV ONETIME ONE Stop: 02/22/17 14:03 Last Admin: 02/22/17 13:39 Dose: 999 mls/hr Sodium Chloride (Normal Saline) Confirm Administered Dose 1,000 mls @ as directed .ROUTE .STK-MED ONE Stop: 02/22/17 13:35 Last Admin: 02/22/17 13:40 Dose: Not Given Sodium Chloride (Normal Saline) 1,000 mls @ 75 mls/hr IV ONETIME ONE Stop: 02/23/17 07:11 Last Admin: 02/22/17 23:34 Dose: Not Given Sodium Chloride (Normal Saline) 1,000 mls @ 100 mls/hr IV ASDIRECTED [facility] Stop: 02/24/17 06:29 Sodium Chloride (Normal Saline) 1,000 mls @ 75 mls/hr IV ASDIRECTED [facility] Last Admin: 02/24/17 20:10 Dose: 100 mls/hr Magnesium Sulfate 2 gm/ Premix 50 mls @ 25 mls/hr IV ONETIME ONE Stop: 02/23/17 11:50 Last Admin: 02/23/17 10:23 Dose: 25 mls/hr Magnesium Sulfate 2 gm/ Premix 50 mls @ 25 mls/hr IV ONETIME ONE Stop: 02/24/17 16:42 Last Admin: 02/24/17 15:24 Dose: 25 mls/hr Sodium Chloride (Normal Saline) 1,000 mls @ 75 mls/hr IV ASDIRECTED [facility] Last Admin: 02/25/17 21:22 Dose: 75 mls/hr Magnesium Sulfate 2 gm/ Premix 50 mls @ 25 mls/hr IV ONETIME ONE Stop: 02/25/17 15:32 Last Admin: 02/25/17 13:48 Dose: 25 mls/hr Insulin Aspart (Novolog) 0 unit SUBCUT QIDACANDBED [facility] PRN Reason: Protocol Last Admin: 02/26/17 11:29 Dose: Not Given Insulin Detemir (Levemir) 27 unit SUBCUT DAILY [facility] Last Admin: 02/26/17 08:43 Dose: 27 units Lisinopril (Prinivil) 10 mg PO DAILY [facility] Last Admin: 02/23/17 12:34 Dose: Not Given Metoprolol Tartrate (Lopressor) 50 mg PO Q12HR [facility] Last Admin: 02/26/17 08:42 Dose: 50 mg Non-Formulary Medication (Allopurinol [Zyloprim]) 100 mg PO DAILY [facility] Non-Formulary Medication (Ranitidine Hcl [Zantac 75]) 75 mg PO BID [facility] Ondansetron HCl (Zofran Odt) 4 mg PO Q4H PRN PRN Reason: nausea, able to take PO Ondansetron HCl (Zofran) 4 mg IV Q4H PRN PRN Reason: Nausea/Vomiting Oxycodone HCl (Oxycodone) 5 mg PO Q6H [facility] Last Admin: 02/23/17 04:53 Dose: Not Given Oxycodone HCl (Oxycodone) 5 mg PO 0800,1200,1600,2000 [facility] Last Admin: 02/26/17 12:21 Dose: Not Given Oxycodone/Acetaminophen (Percocet 325-5 Mg) 1 tab PO Q4H PRN PRN Reason: Pain (moderate 4-6) Last Admin: 02/26/17 03:34 Dose: 1 tab Polyethylene Glycol (Miralax) 17 gm PO DAILY PRN PRN Reason: Constipation Rivaroxaban (Xarelto) 20 mg PO DAILY [facility] Last Admin: 02/26/17 08:41 Dose: 20 mg Sodium Chloride (Saline Flush) 10 ml FLUSH ASDIRECTED PRN PRN Reason: Keep Vein Open Last Admin: 02/22/17 12:34 Dose: 10 ml Tamsulosin HCl (Flomax) 0.4 mg PO DAILY [facility] Last Admin: 02/26/17 08:42 Dose: 0.4 mg Trazodone HCl (Trazodone) 100 mg PO DAILY [facility] Last Admin: 02/26/17 08:41 Dose: 100 mg Trazodone HCl (Trazodone) 200 mg PO BEDTIME [facility] Last Admin: 02/25/17 21:18 Dose: 200 mg *Q Meaningful Use (DIS) - VTE *Q VTE Criteria *Q: - Stroke *Q Stroke Criteria *Q: - AMI *Q AMI Criteria *Q:
== END 2017-02-26 12:23 | disposition home or self-care (01) | DRG 684 ==
LOC: JD.ED 11:38 → JD.MS 18:10 → OBSVTOIN 02-23 11:33 → JD.MS 02-23 11:34
PROVIDERS: ADMIT Internal Medicine Cardiovascular Disease; ATTEND Internal Medicine Cardiovascular Disease
DX: N17.9 Acute kidney failure, unspecified (principal); R41.0 Disorientation, unspecified; R41.82 Altered mental status, unspecified; E83.42 Hypomagnesemia; E11.9 Type 2 diabetes mellitus without complications; Z79.84 Long term (current) use of oral hypoglycemic drugs; Z79.4 Long term (current) use of insulin; I25.2 Old myocardial infarction; Z95.5 Presence of coronary angioplasty implant and graft; F32.9 Major depressive disorder, single episode, unspecified; G47.30 Sleep apnea, unspecified; Z79.01 Long term (current) use of anticoagulants; G47.00 Insomnia, unspecified; Z79.82 Long term (current) use of aspirin; G89.29 Other chronic pain; Z79.899 Other long term (current) drug therapy; E66.9 Obesity, unspecified; M54.5 Low back pain; Z86.73 Personal history of transient ischemic attack (TIA), and cerebral infarction without residual deficits; R25.1 Tremor, unspecified; R41.3 Other amnesia
CPT/HCPCS: 36415; 70450; 70450-26; 71010; 71010-26; 80048; 80053; 80306; 81001; 82962; 83735; 83880; 84484; 85025; 87641; 93005; 94760; 96360; 96361; 96365; 97116-GP; 97162-GP; 97165-GO; 97530-GO; 99285; 99285-25; A9270-GY; G0378; G0480; J1815-GY; J3475; J7040; J7050

== ENCOUNTER 2019-03-11 06:59 | Day surgery (SDC) | payer OTHER, MEDICARE, MEDICAID ==
[~2019-03-11 06:59] MED LIST: Lactated Ringers 1,000 ML IV SCH; Lidocaine 1%/Sod Bicarbonate in NS 8.4% 1 ML Syringe IDERM PRN; Sodium Chloride 0.9% 10 ML Syringe FLUSH PRN
--- NOTE | 2019-03-11 07:27 | PCM.PREANE ---
Preanesthetic Assessment - Procedure Proposed Procedure: egd colonoscopy - Anesthesia/Transfusion/Family Hx Anesthesia History: Prior Anesthesia Without Reaction Family History of Anesthesia Reaction: No Transfusion History: No Prior Transfusion(s) - Review of Systems General: No Symptoms Pulmonary: No Symptoms Cardiovascular: Dyspnea on Exertion Gastrointestinal: Nausea Neurological: Difficulty Walking, Change in Speech (with stoke 5-6 years ago), Gait Disturbance Other: Reports: Easy Bleeding, Easy Bruising, Diabetes (this am [id number]), Thyroid Problems (hypothyroid hx) - Physical Assessment NPO Status Date: 03/10/19 NPO Status Time: 00:00 Height: 1.83 m Weight: 137.711 kg ASA Class: 3 Mental Status: Alert & Oriented x3 Airway Class: Mallampati = 2 Dentition: Reports: Broken Tooth/Teeth, Missing Tooth/Teeth Thyro-Mental Finger Breadths: 2 Mouth Opening Finger Breadths: 2 ROM/Head Extension: Limited/Partial ("I injured my neck years ago") Lungs: Clear to Auscultation, Normal Respiratory Effort, Decreased Breath Sounds Cardiovascular: Regular Rate, Regular Rhythm - Allergies Allergies/Adverse Reactions: Allergies Allergy/AdvReac Type Severity Reaction Status Date / Time No Known Allergies Allergy Verified 03/10/19 10:14 - Blood Blood Available: No Product(s) Available: None - Anesthesia Plan Pre-Op Medication Ordered: Beta Sunshine Beta Sunshine: Metoprolol Med Last Dose Date: 03/11/19 Med Last Dose Time: 06:30 - Acknowledgements Anesthesia Type Planned: MAC Pt an Appropriate Candidate for the Planned Anesthesia: Yes Alternatives and Risks of Anesthesia Discussed w Pt/Guardian: Yes Pt/Guardian Understands and Agrees with Anesthesia Plan: Yes PreAnesthesia Questionnaire HEENT History: Reports: Sinusitis, Other (See Below) Other HEENT History: sialodenitis, oral surgery, bilateral myopia Cardiovascular History: Reports: Afib, Blood Clots/VTE/DVT, CAD, Cardiomyopathy , Heart Failure, High Cholesterol, Hypertension, ME, PVD, Stents Other Cardiovascular History: occulusion and left carotid artery Respiratory History: Reports: COPD, Sleep Apnea Other Respiratory History: hypoxia Gastrointestinal History: Reports: GERD Genitourinary History: Reports: Acute Renal Failure, BPH, Chronic Renal Insuffiency CRYSTAL GAZER History: Reports: None Musculoskeletal History: Reports: Back Pain, Chronic, Gout, Other (See Below) Other Musculoskeletal History: left back fusion Neurological History: Reports: CVA, Migraines Other Neuro History: spinal stenosis, cerviclagia, post-laminectomy syndrome Psychiatric History: Reports: Depression, Other (See Below) Other Psychiatric History: insomnia;mental and behavioral disorders, substance abuse history, opiod dependence, confusion, psychosis, somnolence, insomnia, chronic pain syndrome Endocrine/Metabolic History: Reports: Diabetes, Type II, Hypothyroidism, Obesity /BMI 30+ Hematologic History: Reports: Other (See Below) Other Hematologic History: hypokalemia, hypomagnesia Immunologic History: Reports: None Oncologic (Cancer) History: Reports: None Dermatologic History: Reports: Cellulitis Other Dermatologic History: ingrown toe nails, skin disorder - Infectious Disease History Infectious Disease History: Reports: Chicken Pox, Measles - Past Surgical History Head Surgeries/Procedures: Reports: None HEENT Surgical History: Reports: Naso-Sinus Surgery, Oral Surgery, Other (See Below) Other HEENT Surgeries/Procedures: oral infection Cardiovascular Surgical History: Reports: None Respiratory Surgical History: Reports: None GI Surgical History: Reports: Hernia Repair/Other Female Surgical History: Reports: None Male Surgical History: Reports: None Endocrine Surgical History: Reports: None Neurological Surgical History: Reports: Laminectomy, Spinal Fusion Musculoskeletal Surgical History: Reports: Other (See Below) Other Musculoskeletal Surgeries/Procedures:: left shoulder surgery Oncologic Surgical History: Reports: None Dermatological Surgical History: Reports: None - SUBSTANCE USE Smoking Status *Q: Never Smoker Tobacco Use Within Last Twelve Months: No Second Hand Smoke Exposure: No Days Per Week of Alcohol Use: 0 Number of Drinks Per Day: 0 Total Drinks Per Week: 0 Recreational Drug Use History: No - HOME MEDS Home Medications: Home Meds Allopurinol [Zyloprim] 100 mg PO DAILY 09/16/13 [History] Ranitidine HCl [Zantac 75] 75 mg PO BID 09/16/13 [History] Tamsulosin [Flomax] 0.4 mg PO DAILY 09/16/13 [History] Acetaminophen [Tylenol Arthritis Pain] 1,300 mg PO BID PRN 07/17/15 [History] Rivaroxaban [Xarelto] 20 mg PO DAILY #30 tablet 07/21/15 [Rx] Divalproex Sodium [Depakote ER] 250 mg PO DAILY 09/20/16 [History] Cyclobenzaprine [Flexeril] 10 mg PO BID 12/18/16 [History] SUMAtriptan [Imitrex] 50 mg PO BID PRN 12/18/16 [History] Fluticasone Propionate [Flonase] 2 sprays NASBOTH DAILY PRN 12/19/16 [History] Gabapentin [Neurontin] 200 mg PO BID 12/19/16 [History] Fenofibrate Nanocrystallized [Tricor] 145 mg PO DAILY #30 tablet 12/21/16 [Rx] traZODone 200 mg PO BEDTIME tablet 02/26/17 [Rx] Insulin Glargine,Hum.Rec.Anlog [Basaglar Kwikpen U-100] 26 unit SQ BID 02/17/18 [History] Trolamine Salicylate/Aloe Vera [Aspercreme 10% Cream] 1 gr TOP BID PRN 02/17/18 [History] Aspirin [Adult Aspirin] 81 mg PO 1200 02/18/18 [History] Ezetimibe 10 mg PO BEDTIME 02/18/18 [History] Calcium Carbonate/Vitamin D3 [Calcium 600 + Vit D 400 Softgl] 1 tab PO BID 03/10 [History] Divalproex Sodium [Depakote ER] 1,000 mg PO DAILY 03/10/19 [History] FLUoxetine HCl [Prozac] 20 mg PO DAILY 03/10/19 [History] Ferrous Sulfate [Iron] 325 mg PO DAILY 03/10/19 [History] Gabapentin [Neurontin] 100 mg PO 1200 03/10/19 [History] Hydrocodone/Acetaminophen [[place] 5-325 Tablet] 1 tab PO DAILY PRN 03/10/19 [ History] Ibuprofen 600 mg PO BID PRN 03/10/19 [History] Lisinopril [Prinivil] 10 mg PO DAILY 03/10/19 [History] Melatonin 5 mg PO BEDTIME PRN 03/10/19 [History] Menthol/Zinc Oxide [Calmoseptine] 1 dose TOP BID 03/10/19 [History] Metoprolol Tartrate 50 mg PO BID 03/10/19 [History] Simvastatin [Zocor] 40 mg PO BEDTIME 03/10/19 [History] Zolpidem Tartrate [Ambien] 5 mg PO BEDTIME 03/10/19 [History] atorvaSTATin Calcium [Lipitor] 80 mg PO BEDTIME 03/10/19 [History] atorvaSTATin Calcium [Lipitor] 80 mg PO DAILY 03/10/19 [History] metFORMIN HCl [Metformin HCl] 1,000 mg PO BID 03/10/19 [History] traZODone HCl [Trazodone HCl] 100 mg PO QAM 03/10/19 [History] - CURRENT (IN HOUSE) MEDS Current Meds: Current Medications Lactated Ringer's (Ringers, Lactated) 1,000 mls @ 125 mls/hr IV ASDIRECTED KAREEM Stop: 03/11/19 23:00 Lidocaine/Sodium Bicarbonate (Buffered Lidocaine 1% In Ns 8.4%) 0.25 ml IDERM ONETIME PRN PRN Reason: Prior to IV Start Stop: 03/11/19 23:00 Sodium Chloride (Saline Flush) 10 ml FLUSH ASDIRECTED PRN PRN Reason: Keep Vein Open Stop: 03/11/19 18:00
[2019-03-11] MEDS ORDERED: Ondansetron 4 MG/2 ML SDV ONE (07:42)
[2019-03-11] MEDS ORDERED: Midazolam 1 MG/ML 2 ML SDV ONE (07:43)
[2019-03-11] MEDS ORDERED: Lidocaine 1% 4 ML ONE (07:43)
[2019-03-11] MEDS ORDERED: Propofol 200 MG/20 ML SDV ONE ×4 (07:43→09:02)
[2019-03-11] MEDS ORDERED: fentaNYL 100 MCG/2 ML SDV ONE (07:43)
--- NOTE | 2019-03-11 09:37 | PCM48HPAN ---
Post Anesthesia Note - EVALUATION WITHIN 48HRS OF ANESTHETIC Vital Signs in Normal Range: Yes Patient Participated in Evaluation: Yes Respiratory Function Stable: Yes Airway Patent: Yes Cardiovascular Function Stable: Yes Hydration Status Stable: Yes Pain Control Satisfactory: Yes Nausea and Vomiting Control Satisfactory: Yes Mental Status Recovered: Yes Vital Signs: Last Vital Signs Temp 36.2 C 03/11/19 07:10 Pulse 87 03/11/19 07:10 Resp 16 03/11/19 07:10 BP 165/88 H 03/11/19 07:10 Pulse Ox 95 03/11/19 07:10 - COMMENTS/OBSERVATIONS Free Text/Narrative:: no anesthesia complications noted
[2019-03-11 11:32] VITALS: BP 136/74; PULSE 68
--- NOTE | 2019-03-11 18:24 | OR ---
DATE OF OPERATION: 03/11/2019 SURGEON: Dorcas Gutierres MD PREOPERATIVE DIAGNOSIS: Positive FIT test, family history of colon polyps. POSTOPERATIVE DIAGNOSIS: Multiple polyps, gastritis, and diverticulosis. PROCEDURES: 1. Esophagogastroduodenoscopy with biopsies. 2. Colonoscopy with polypectomy. ESTIMATED BLOOD LOSS: Minimal. INDICATIONS AND CONSENT: Mr. Mcguire is a 63-year-old male who had a positive FIT test and has family history of colon cancer as well as colonic polyps. Therefore, the patient was evaluated in clinic for these findings. Colonoscopy was recommended and discussion was had about risks, benefits, and alternatives. The patient understood the risks including perforation, and bleeding and he agreed to proceed with the procedure. Informed consent was obtained. DESCRIPTION OF PROCEDURE: The patient was taken to the procedure room, and after induction of monitored anesthesia, EGD was performed. The scope was advanced through the mouth into the esophagus. Esophagus was examined entirely and it appeared normal. The scope was passed into the stomach all the way to the second portion of the duodenum. The duodenum appeared normal. There was mild inflammation of the entire stomach diffusely. Biopsies were taken in the antrum for pathologic examination. These were taken with cold forceps. Then, the retroflexion was performed. There was no hiatal hernia. Cardia appeared normal. There was no ulcers. The scope was withdrawn into the GE junction. The GE junction appeared to have some irregularities. Therefore, biopsies were taken with cold forceps for pathologic examination, and the scope was advanced back into the stomach and the air was suctioned out and the scope was slowly removed, examining the entirety of the stomach and the esophagus again and no additional abnormalities were found. The scope was withdrawn completely out. Then, attention was turned into a colonoscopy. Anorectal and digital rectal examination was performed, there were no abnormalities. The scope was inserted and advanced all the way to the cecum after several maneuvers such as abdominal pressure and change in positioning due to difficult maneuvering the scope into the cecum. However, eventually the cecum was reached. The appendiceal orifice was photographed as well as the ileocecal valve. There was a cecal polyp about 2 mm in size that was removed completely with cold forceps. There were several transverse colon polyps. The proximal transverse colon polyp x3 polypectomy done with cold forceps. These were 2 to 3 mm in size. There was a mid transverse colon polyp that was about 3 mm in size. Likewise polypectomy performed with cold forceps. There was another mid transverse colon that was about 6 mm in size. This was pedunculated and was removed with a snare. Removal was complete. There were three 3 mm descending colon polyps that were removed with cold forceps and there was another 5 mm descending colon polyp that was removed with snare. Removal was complete. All these polyps were removed completely and sent for pathologic examination. The scope was withdrawn into the rectum and the rectum appeared normal on retroflexion. There were a few scattered diverticulosis in the sigmoid colon. The scope was withdrawn and the procedure was concluded. The patient tolerated the procedure well. PLAN: Plan for the patient to go home. The patient to follow up in clinic in 2 weeks to discuss pathologic results and plan for followup colonoscopy. OPERATION PERFORMED: ANESTHESIA: [place] /[id number] MTDD
== END 2019-03-11 11:15 | disposition home or self-care (01) ==
LOC: JD.SDS 06:59
PROVIDERS: ATTEND Surgery
DX: D12.0 Benign neoplasm of cecum (principal); D12.3 Benign neoplasm of transverse colon; D12.4 Benign neoplasm of descending colon; K29.70 Gastritis, unspecified, without bleeding; K57.90 Diverticulosis of intestine, part unspecified, without perforation or abscess without bleeding; I11.0 Hypertensive heart disease with heart failure; I50.9 Heart failure, unspecified; J44.9 Chronic obstructive pulmonary disease, unspecified; E11.9 Type 2 diabetes mellitus without complications; I25.10 Atherosclerotic heart disease of native coronary artery without angina pectoris; N40.1 Benign prostatic hyperplasia with lower urinary tract symptoms; K21.9 Gastro-esophageal reflux disease without esophagitis; E78.5 Hyperlipidemia, unspecified; E03.9 Hypothyroidism, unspecified; E66.9 Obesity, unspecified; G43.709 Chronic migraine without aura, not intractable, without status migrainosus; M10.9 Gout, unspecified; Z80.0 Family history of malignant neoplasm of digestive organs; Z86.010 Personal history of colon polyps; Z79.899 Other long term (current) drug therapy; Z79.4 Long term (current) use of insulin; Z79.891 Long term (current) use of opiate analgesic; Z79.01 Long term (current) use of anticoagulants; Z79.51 Long term (current) use of inhaled steroids; Z79.82 Long term (current) use of aspirin; Z68.41 Body mass index [BMI] 40.0-44.9, adult
CPT/HCPCS: 00813; J2001; J2250; J2405; J2704; J3010; J7120

== ENCOUNTER 2020-01-16 18:05 | Inpatient (IN) | payer OTHER, MEDICARE, MEDICAID ==
--- NOTE | 2020-01-16 18:39 | EDM.PDOC ---
<Jhony Campbell - Last Filed: 01/16/20 23:19> ED HPI GENERAL MEDICAL PROBLEM - General Chief Complaint: General Stated Complaint: [facility] Time Seen by Provider: 01/16/20 19:00 Source of Information: Reports: Patient History Limitations: Reports: No Limitations - History of Present Illness INITIAL COMMENTS - FREE TEXT/NARRATIVE: The patient presents by [facility] for shortness of breath, confusion and a fever. [facility] is in the [facility]. They have some concerns that he is not able to do well at home. He has redness and swelling to both legs and a low grade temp. He denies having a cough but he has low oxygen saturations. He no chest pain. He does feel a little short of breath. He has no abdominal pain, nausea or vomiting. He is a little confused when I talk to him. Onset: Gradual Duration: Day(s): Location: Reports: Lower Extremity, Left, Lower Extremity, Right Quality: Reports: Sharp Severity: Moderate Improves with: Reports: None Worsens with: Reports: None Associated Symptoms: Reports: Confusion, Fever/Chills, Shortness of Breath. Denies: Chest Pain, Cough, Headaches, Nausea/Vomiting - Related Data Allergies Allergy/AdvReac Type Severity Reaction Status Date / Time No Known Allergies Allergy Verified 01/16/20 18:29 Home Meds: Home Meds allopurinoL [Zyloprim] 100 mg PO DAILY 09/16/13 [History] Rivaroxaban [Xarelto] 20 mg PO DAILY #30 tablet 07/21/15 [Rx] Cyclobenzaprine [Flexeril] 10 mg PO BID 12/18/16 [History] Ezetimibe 10 mg PO BEDTIME 02/18/18 [History] Calcium Carbonate/Vitamin D3 [Calcium 600 + Vit D 400 Softgl] 1 tab PO BID 03/10/19 [History] Melatonin 5 mg PO BEDTIME 03/10/19 [History] Acetaminophen [Tylenol Arthritis Pain] 650 mg PO BID 01/17/20 [History] Famotidine 20 mg PO BID 01/17/20 [History] Furosemide 40 mg PO DAILY 01/17/20 [History] Metoprolol Succinate [Toprol XL 50mg] 50 mg PO QAM 01/17/20 [History] Montelukast [Singulair] 10 mg PO BEDTIME 01/17/20 [History] Multivitamin [Tab-A-Kira] 1 tab PO DAILY 01/17/20 [History] Non-Formulary Medication [NF Drug] 500 mg PO DAILY 01/17/20 [History] Sennosides [Senna] 17.2 mg PO BEDTIME 01/17/20 [History] Tamsulosin [Flomax] 0.4 mg PO BEDTIME 01/17/20 [History] Thiamine HCl [Vitamin B-1] 100 mg PO DAILY 01/17/20 [History] lamoTRIgine [Lamotrigine] 75 mg PO BID 01/17/20 [History] sitaGLIPtin Phosphate [Januvia] 50 mg PO DAILY 01/17/20 [History] Acetaminophen [Tylenol] 500 mg PO DAILY PRN 01/20/20 [History] Acetaminophen/Codeine [Tylenol with Codeine No.3 300MG/30MG] 2 tab PO Q8H PRN #10 tablet 01/20/20 [Rx] Ascorbic Acid/Calcium Pantothe 1 tab PO DAILY 01/20/20 [History] Benzocaine 0.1mg/Mg Oral Gel 1 applic PO QID PRN 01/20/20 [History] Cariprazine HCl [Vraylar] 3 mg PO DAILY 01/20/20 [History] Fenofibrate Nanocrystallized [Fenofibrate] 145 mg PO DAILY 01/20/20 [History] Fluticasone Propionate [Flovent HFA] 2 spray INH DAILY PRN 01/20/20 [History] Insulin Glargine,Hum.Rec.Anlog [Basaglar Kwikpen U-100] 25 unit SQ BID 01/20/20 [History] Insulin Lispro [Admelog] 15 units SQ TIDMEALS 01/20/20 [History] OLANZapine [Olanzapine] 10 mg PO DAILY 01/20/20 [History] OLANZapine [Olanzapine] 30 mg PO BEDTIME 01/20/20 [History] Pimozide 2 mg PO BID 01/20/20 [History] SUMAtriptan [Imitrex] 50 mg PO Q12H PRN 01/20/20 [History] Sertraline [Zoloft] 100 mg PO DAILY 01/20/20 [History] Super Beta Prostate Advanced 1 tab PO DAILY 01/20/20 [History] Super Beta Virility Boost 1 tab PO DAILY 01/20/20 [History] Trolamine Salicylate/Aloe Vera [Aspercreme 10% Cream] 1 applic TOP BID PRN 01/20/20 [History] Trolamine Salicylate/Aloe Vera [Aspercreme 10%] 1 applic TOP BID 01/20/20 [History] cephALEXin [Keflex] 500 mg PO Q8H #30 cap 01/20/20 [Rx] haloperidoL [Haldol] 2 mg PO BEDTIME 01/20/20 [History] polyethylene glycoL 3350 [MiraLAX] 17 gram PO DAILY 01/20/20 [History] traZODone HCl [Trazodone HCl] 75 mg PO BEDTIME 01/20/20 [History] ED ROS GENERAL - Review of Systems Review Of Systems: See Below Constitutional: Reports: Fever, Chills, Malaise, Weakness, Fatigue HEENT: Reports: No Symptoms Respiratory: Reports: Shortness of Breath. Denies: Cough Cardiovascular: Reports: No Symptoms Endocrine: Reports: No Symptoms GI/Abdominal: Reports: No Symptoms : Reports: No Symptoms Musculoskeletal: Reports: Other (Swelling and redness to both legs) ED EXAM, GENERAL - Physical Exam Exam: See Below Exam Limited By: No Limitations General Appearance: Alert, No Apparent Distress Ears: Normal External Exam Nose: Normal Inspection Head: Atraumatic, Normocephalic Neck: Normal Inspection Respiratory/Chest: No Respiratory Distress, Decreased Breath Sounds Cardiovascular: Regular Rate, Rhythm, No Edema, No Murmur GI/Abdominal: Soft, Non-Tender, No Organomegaly, No Mass Back Exam: Normal Inspection Extremities: Other (Erythema and edema to the anterior part of both legs. Good sensation and pulses distally) Neurological: Alert, Other (Orientated to person and place. He was a little fuzzy on some details) Course - Re-Assessments/Exams Free Text/Narrative Re-Assessment/Exam: 01/16/20 23:24 I ordered an IV saline lock, oxygen, CXR, labs, ABG, blood cultures and lactic acid. I also ordered vancomycin 2 grams IV. His EKG shows a NSR with no acute changes. His CXR shows cardiomegaly with no acute changes. His WBC was elevated at 19.9. His Hgb was a little low at 11.4. His platelets were elevated at 343. His PT was elevated at 14.6. His D-dimer was negative. His pH was normal at 7.42. His pCO2 was elevated at 51.8. His pO2 was normal at 89. His creatinine was elevated at 1.4. His glucose was elevated at 161. His troponin was negative. His CRP was elevated at 9. His UA shows no UTI. He was COVID 19 negative. I feel he has cellulitis in both legs. My PATENT LEATHER SORTER Silke called Dr Erazo because I was involved with another patient and Dr Erazo accepted the patient. Departure - Departure Time of Disposition: 23:30 Disposition: Admitted As Inpatient 66 Condition: Fair Clinical Impression: Cellulitis Qualifiers: Site of cellulitis: extremity Site of cellulitis of extremity: lower extremity Laterality: unspecified laterality Qualified Code(s): L03.119 - Cellulitis of unspecified part of limb - Discharge Information <Andreas Lowry Peter - Last Filed: 01/20/20 23:14> ED HPI GENERAL MEDICAL PROBLEM Right Leg Pain Score (Numeric/FACES): 5 Past Medical History HEENT History: Reports: Sinusitis, Other (See Below) Other HEENT History: sialodenitis, oral surgery, bilateral myopia Cardiovascular History: Reports: Afib, Blood Clots/VTE/DVT, CAD, Cardiomyopathy, Heart Failure, High Cholesterol, Hypertension, LA, PVD, Stents Other Cardiovascular History: occulusion and left carotid artery Respiratory History: Reports: COPD, Sleep Apnea Other Respiratory History: hypoxia Gastrointestinal History: Reports: GERD Genitourinary History: Reports: Acute Renal Failure, BPH, Chronic Renal Insuffiency ARCHITECTURAL RENDERER History: Reports: None Musculoskeletal History: Reports: Back Pain, Chronic, Gout, Other (See Below) Other Musculoskeletal History: left back fusion Neurological History: Reports: CVA, Migraines Other Neuro History: spinal stenosis, cerviclagia, post-laminectomy syndrome Psychiatric History: Reports: Depression, Other (See Below) Other Psychiatric History: insomnia;mental and behavioral disorders, substance abuse history, opiod dependence, confusion, psychosis, somnolence, insomnia, chronic pain syndrome Endocrine/Metabolic History: Reports: Diabetes, Type II, Hypothyroidism, Obesity/BMI 30+ Hematologic History: Reports: Other (See Below) Other Hematologic History: hypokalemia, hypomagnesia Immunologic History: Reports: None Oncologic (Cancer) History: Reports: None Dermatologic History: Reports: Cellulitis Other Dermatologic History: ingrown toe nails, skin disorder - Infectious Disease History Infectious Disease History: Reports: Chicken Pox, Measles - Past Surgical History Head Surgeries/Procedures: Reports: None HEENT Surgical History: Reports: Naso-Sinus Surgery, Oral Surgery, Other (See Below) Other HEENT Surgeries/Procedures: oral infection Cardiovascular Surgical History: Reports: None Respiratory Surgical History: Reports: None GI Surgical History: Reports: Hernia Repair/Other Male Surgical History: Reports: None Endocrine Surgical History: Reports: None Neurological Surgical History: Reports: Laminectomy, Spinal Fusion Musculoskeletal Surgical History: Reports: Other (See Below) Other Musculoskeletal Surgeries/Procedures:: left shoulder surgery Oncologic Surgical History: Reports: None Dermatological Surgical History: Reports: None Social & Family History - Family History Family Medical History: Noncontributory HEENT: Reports: None Cardiac: Reports: LA, Stent, Other (See Below) Other Cardiac Family History: Unsure of exact family history GI: Reports: Cholelithiasis Musculoskeletal: Reports: Gout Neurological: Reports: Alzheimers Disease Endocrine/Metabolic: Reports: Diabetes, type II Oncologic: Reports: Colon - Tobacco Use Smoking Status *Q: Never Smoker - Caffeine Use Caffeine Use: Reports: Soda - Living Situation & Occupation Living situation: Reports: Single Occupation: Disabled Course - Vital Signs Last Recorded V/S: Last Vital Signs Temp 36.6 C 01/20/20 07:27 Pulse 102 H 01/20/20 08:32 Resp 16 01/20/20 07:33 BP 146/74 H 01/20/20 08:32 Pulse Ox 91 L 01/20/20 07:27 - Orders/Labs/Meds Orders: Active Orders 24 hr Category Date Time Status Echo Comp wo Cont [US] Routine Exams 01/20/20 12:40 Taken Labs: Laboratory Tests 01/16/20 01/16/20 01/16/20 Range/Units 18:40 18:40 18:40 WBC 19.90 H (4.23-9.07) K/mm3 RBC 4.92 (4.63-6.08) M/mm3 Hgb 11.4 L D (13.7-17.5) gm/dl Hct 39.9 L (40.1-51.0) % MCV 81.1 D (79.0-92.2) fl MCH 23.2 L (25.7-32.2) pg MCHC 28.6 L (32.2-35.5) g/dl RDW Std Deviation 53.0 H (35.1-43.9) fL Plt Count 343 H D (163-337) K/mm3 MPV 10.7 (9.4-12.3) fl Neut % (Auto) 85.8 H (34.0-67.9) % Lymph % (Auto) 3.1 L (21.8-53.1) % [place] % (Auto) 10.2 (5.3-12.2) % Eos % (Auto) 0.3 L (0.8-7.0) Baso % (Auto) 0.3 (0.1-1.2) % Neut # (Auto) 17.09 H (1.78-5.38) K/mm3 Lymph # (Auto) 0.61 L (1.32-3.57) K/mm3 [place] # (Auto) 2.03 H (0.30-0.82) K/mm3 Eos # (Auto) 0.05 (0.04-0.54) K/mm3 Baso # (Auto) 0.06 (0.01-0.08) K/mm3 Manual Slide Review Abnormal smear ESR (0-15) mm/hr Percent Retic (0.51-1.81) % PT 14.6 H (9.7-11.7) SECONDS INR 1.37 APTT 32 H (22-31) SECONDS D-Dimer, Quantitative 0.22 (0.19-0.50) mg/L Puncture Site ABG pH (7.35-7.45) ABG pCO2 (35.0-45.0) mmHg ABG pO2 (80.0-100.0) mmHg ABG HCO3 (22.0-26.0) meq/L ABG O2 Saturation (96.0-97.0) % ABG Base Excess (-2-2.0) Naeem Test A-a Gradient mmHg O2 Delivery Device Oxygen Flow Rate FiO2 (21.00-100.00) % Sodium 138 (136-145) mEq/L Potassium 3.7 (3.5-5.1) mEq/L Chloride 99 (98-107) mEq/L Carbon Dioxide 34 H (21-32) mEq/L Anion Gap 8.7 (5-15) BUN 23 H (7-18) mg/dL Creatinine 1.4 H (0.7-1.3) mg/dL Est Cr Clr Drug Dosing TNP Estimated GFR (MDRD) 51 (>60) mL/min BUN/Creatinine Ratio 16.4 (14-18) Glucose 161 H (80-115) mg/dL POC Glucose (80-115) mg/dL Hemoglobin A1c (4.50-6.20) % Lactic Acid (0.4-2.0) mmol/L Calcium 8.9 (8.5-10.1) mg/dL Phosphorus (2.6-4.7) mg/dL Magnesium (1.8-2.4) mg/dl Iron (65-175) ug/dL TIBC (100-400) ug/dL % Saturation (20-55) % Transferrin (202-364) mg/dL Ferritin (26-388) ng/ml Total Bilirubin 0.4 (0.2-1.0) mg/dL AST 20 (15-37) U/L ALT 24 (16-63) U/L Alkaline Phosphatase 68 (46-116) U/L Lactate Dehydrogenase 185 (85-227) U/L Creatine Kinase 59 (39-308) U/L Troponin I < 0.017 (0.00-0.056) ng/mL C-Reactive Protein 9.0 H* (<1.0) mg/dL NT-Pro-B Natriuret Pep (0-125) pg/mL Total Protein 7.2 (6.4-8.2) g/dl Albumin 3.3 L (3.4-5.0) g/dl Globulin 3.9 gm/dL Albumin/Globulin Ratio 0.9 L (1-2) Prealbumin (17.0-34.0) mg/dL Vitamin B12 (193-986) pg/ml Vitamin D 25-Hydroxy (30.0-100.0) ng/ml Folate (8.6-58.9) ng/mL Procalcitonin (<0.10) ng/mL Urine Color (Yellow) Urine Appearance (Clear) Urine pH (5.0-8.0) Ur Specific [place] (1.005-1.030) Urine Protein (Negative) Urine Glucose (UA) (Negative) Urine Ketones (Negative) Urine Occult Blood (Negative) Urine Nitrite (Negative) Urine Bilirubin (Negative) Urine Urobilinogen (0.2-1.0) Ur Leukocyte Esterase (Negative) Urine RBC (0-5) /hpf Urine WBC (0-5) /hpf Ur Squamous Epith Cells (0-5) /hpf Urine Bacteria (FEW) /hpf Urine Mucus (FEW) /hpf Ur Random Creatinine (30.0-125.0) mg/dL Ur Random Sodium (40-220) mEq/L SARS Virus RNA (PCR) (NEGATIVE) MRSA (PCR) 01/16/20 01/16/20 01/16/20 Range/Units 18:40 18:40 18:40 WBC (4.23-9.07) K/mm3 RBC (4.63-6.08) M/mm3 Hgb (13.7-17.5) gm/dl Hct (40.1-51.0) % MCV (79.0-92.2) fl MCH (25.7-32.2) pg MCHC (32.2-35.5) g/dl RDW Std Deviation (35.1-43.9) fL Plt Count (163-337) K/mm3 MPV (9.4-12.3) fl Neut % (Auto) (34.0-67.9) % Lymph % (Auto) (21.8-53.1) % [place] % (Auto) (5.3-12.2) % Eos % (Auto) (0.8-7.0) Baso % (Auto) (0.1-1.2) % Neut # (Auto) (1.78-5.38) K/mm3 Lymph # (Auto) (1.32-3.57) K/mm3 [place] # (Auto) (0.30-0.82) K/mm3 Eos # (Auto) (0.04-0.54) K/mm3 Baso # (Auto) (0.01-0.08) K/mm3 Manual Slide Review ESR (0-15) mm/hr Percent Retic (0.51-1.81) % PT (9.7-11.7) SECONDS INR APTT (22-31) SECONDS D-Dimer, Quantitative (0.19-0.50) mg/L Puncture Site ABG pH (7.35-7.45) ABG pCO2 (35.0-45.0) mmHg ABG pO2 (80.0-100.0) mmHg ABG HCO3 (22.0-26.0) meq/L ABG O2 Saturation (96.0-97.0) % ABG Base Excess (-2-2.0) Naeem Test A-a Gradient mmHg O2 Delivery Device Oxygen Flow Rate FiO2 (21.00-100.00) % Sodium (136-145) mEq/L Potassium (3.5-5.1) mEq/L Chloride (98-107) mEq/L Carbon Dioxide (21-32) mEq/L Anion Gap (5-15) BUN (7-18) mg/dL Creatinine (0.7-1.3) mg/dL Est Cr Clr Drug Dosing Estimated GFR (MDRD) (>60) mL/min BUN/Creatinine Ratio (14-18) Glucose (80-115) mg/dL POC Glucose (80-115) mg/dL Hemoglobin A1c (4.50-6.20) % Lactic Acid 0.9 (0.4-2.0) mmol/L Calcium (8.5-10.1) mg/dL Phosphorus (2.6-4.7) mg/dL Magnesium (1.8-2.4) mg/dl Iron (65-175) ug/dL TIBC (100-400) ug/dL % Saturation (20-55) % Transferrin (202-364) mg/dL Ferritin 17 L (26-388) ng/ml Total Bilirubin (0.2-1.0) mg/dL AST (15-37) U/L ALT (16-63) U/L Alkaline Phosphatase (46-116) U/L Lactate Dehydrogenase (85-227) U/L Creatine Kinase (39-308) U/L Troponin I (0.00-0.056) ng/mL C-Reactive Protein (<1.0) mg/dL NT-Pro-B Natriuret Pep 199 H (0-125) pg/mL Total Protein (6.4-8.2) g/dl Albumin (3.4-5.0) g/dl Globulin gm/dL Albumin/Globulin Ratio (1-2) Prealbumin (17.0-34.0) mg/dL Vitamin B12 (193-986) pg/ml Vitamin D 25-Hydroxy (30.0-100.0) ng/ml Folate (8.6-58.9) ng/mL Procalcitonin (<0.10) ng/mL Urine Color (Yellow) Urine Appearance (Clear) Urine pH (5.0-8.0) Ur Specific [place] (1.005-1.030) Urine Protein (Negative) Urine Glucose (UA) (Negative) Urine Ketones (Negative) Urine Occult Blood (Negative) Urine Nitrite (Negative) Urine Bilirubin (Negative) Urine Urobilinogen (0.2-1.0) Ur Leukocyte Esterase (Negative) Urine RBC (0-5) /hpf Urine WBC (0-5) /hpf Ur Squamous Epith Cells (0-5) /hpf Urine Bacteria (FEW) /hpf Urine Mucus (FEW) /hpf Ur Random Creatinine (30.0-125.0) mg/dL Ur Random Sodium (40-220) mEq/L SARS Virus RNA (PCR) (NEGATIVE) MRSA (PCR) 01/16/20 01/16/20 01/16/20 Range/Units 19:09 19:45 20:28 WBC (4.23-9.07) K/mm3 RBC (4.63-6.08) M/mm3 Hgb (13.7-17.5) gm/dl Hct (40.1-51.0) % MCV (79.0-92.2) fl MCH (25.7-32.2) pg MCHC (32.2-35.5) g/dl RDW Std Deviation (35.1-43.9) fL Plt Count (163-337) K/mm3 MPV (9.4-12.3) fl Neut % (Auto) (34.0-67.9) % Lymph % (Auto) (21.8-53.1) % [place] % (Auto) (5.3-12.2) % Eos % (Auto) (0.8-7.0) Baso % (Auto) (0.1-1.2) % Neut # (Auto) (1.78-5.38) K/mm3 Lymph # (Auto) (1.32-3.57) K/mm3 [place] # (Auto) (0.30-0.82) K/mm3 Eos # (Auto) (0.04-0.54) K/mm3 Baso # (Auto) (0.01-0.08) K/mm3 Manual Slide Review ESR (0-15) mm/hr Percent Retic (0.51-1.81) % PT (9.7-11.7) SECONDS INR APTT (22-31) SECONDS D-Dimer, Quantitative (0.19-0.50) mg/L Puncture Site Rt radial ABG pH 7.42 (7.35-7.45) ABG pCO2 51.8 H (35.0-45.0) mmHg ABG pO2 89.0 (80.0-100.0) mmHg ABG HCO3 32.9 H (22.0-26.0) meq/L ABG O2 Saturation 98.1 H (96.0-97.0) % ABG Base Excess 7.4 H (-2-2.0) Naeem Test Positive A-a Gradient 74 mmHg O2 Delivery Device Nasal cannula Oxygen Flow Rate 3.0 FiO2 32.00 (21.00-100.00) % Sodium (136-145) mEq/L Potassium (3.5-5.1) mEq/L Chloride (98-107) mEq/L Carbon Dioxide (21-32) mEq/L Anion Gap (5-15) BUN (7-18) mg/dL Creatinine (0.7-1.3) mg/dL Est Cr Clr Drug Dosing Estimated GFR (MDRD) (>60) mL/min BUN/Creatinine Ratio (14-18) Glucose (80-115) mg/dL POC Glucose (80-115) mg/dL Hemoglobin A1c (4.50-6.20) % Lactic Acid (0.4-2.0) mmol/L Calcium (8.5-10.1) mg/dL Phosphorus (2.6-4.7) mg/dL Magnesium (1.8-2.4) mg/dl Iron (65-175) ug/dL TIBC (100-400) ug/dL % Saturation (20-55) % Transferrin (202-364) mg/dL Ferritin (26-388) ng/ml Total Bilirubin (0.2-1.0) mg/dL AST (15-37) U/L ALT (16-63) U/L Alkaline Phosphatase (46-116) U/L Lactate Dehydrogenase (85-227) U/L Creatine Kinase (39-308) U/L Troponin I (0.00-0.056) ng/mL C-Reactive Protein (<1.0) mg/dL NT-Pro-B Natriuret Pep (0-125) pg/mL Total Protein (6.4-8.2) g/dl Albumin (3.4-5.0) g/dl Globulin gm/dL Albumin/Globulin Ratio (1-2) Prealbumin (17.0-34.0) mg/dL Vitamin B12 (193-986) pg/ml Vitamin D 25-Hydroxy (30.0-100.0) ng/ml Folate (8.6-58.9) ng/mL Procalcitonin (<0.10) ng/mL Urine Color Yellow (Yellow) Urine Appearance Clear (Clear) Urine pH 8.0 (5.0-8.0) Ur Specific [place] 1.020 (1.005-1.030) Urine Protein Negative (Negative) Urine Glucose (UA) Negative (Negative) Urine Ketones Negative (Negative) Urine Occult Blood Negative (Negative) Urine Nitrite Negative (Negative) Urine Bilirubin Negative (Negative) Urine Urobilinogen 0.2 (0.2-1.0) Ur Leukocyte Esterase Negative (Negative) Urine RBC 0-5 (0-5) /hpf Urine WBC 0-5 (0-5) /hpf Ur Squamous Epith Cells Not seen (0-5) /hpf Urine Bacteria Few (FEW) /hpf Urine Mucus Not seen (FEW) /hpf Ur Random Creatinine (30.0-125.0) mg/dL Ur Random Sodium (40-220) mEq/L SARS Virus RNA (PCR) Negative (NEGATIVE) MRSA (PCR) 01/16/20 01/17/20 01/17/20 Range/Units 20:35 03:50 04:05 WBC 20.23 H (4.23-9.07) K/mm3 RBC 4.78 (4.63-6.08) M/mm3 Hgb 11.2 L (13.7-17.5) gm/dl Hct 38.7 L (40.1-51.0) % MCV 81.0 (79.0-92.2) fl MCH 23.4 L (25.7-32.2) pg MCHC 28.9 L (32.2-35.5) g/dl RDW Std Deviation 52.7 H (35.1-43.9) fL Plt Count 296 (163-337) K/mm3 MPV 10.3 (9.4-12.3) fl Neut % (Auto) 81.0 H (34.0-67.9) % Lymph % (Auto) 6.1 L (21.8-53.1) % [place] % (Auto) 12.1 (5.3-12.2) % Eos % (Auto) 0.3 L (0.8-7.0) Baso % (Auto) 0.3 (0.1-1.2) % Neut # (Auto) 16.36 H (1.78-5.38) K/mm3 Lymph # (Auto) 1.24 L (1.32-3.57) K/mm3 [place] # (Auto) 2.45 H (0.30-0.82) K/mm3 Eos # (Auto) 0.06 (0.04-0.54) K/mm3 Baso # (Auto) 0.07 (0.01-0.08) K/mm3 Manual Slide Review Abnormal smear ESR (0-15) mm/hr Percent Retic (0.51-1.81) % PT (9.7-11.7) SECONDS INR APTT (22-31) SECONDS D-Dimer, Quantitative (0.19-0.50) mg/L Puncture Site ABG pH (7.35-7.45) ABG pCO2 (35.0-45.0) mmHg ABG pO2 (80.0-100.0) mmHg ABG HCO3 (22.0-26.0) meq/L ABG O2 Saturation (96.0-97.0) % ABG Base Excess (-2-2.0) Naeem Test A-a Gradient mmHg O2 Delivery Device Oxygen Flow Rate FiO2 (21.00-100.00) % Sodium (136-145) mEq/L Potassium (3.5-5.1) mEq/L Chloride (98-107) mEq/L Carbon Dioxide (21-32) mEq/L Anion Gap (5-15) BUN (7-18) mg/dL Creatinine (0.7-1.3) mg/dL Est Cr Clr Drug Dosing Estimated GFR (MDRD) (>60) mL/min BUN/Creatinine Ratio (14-18) Glucose (80-115) mg/dL POC Glucose (80-115) mg/dL Hemoglobin A1c (4.50-6.20) % Lactic Acid (0.4-2.0) mmol/L Calcium (8.5-10.1) mg/dL Phosphorus (2.6-4.7) mg/dL Magnesium (1.8-2.4) mg/dl Iron (65-175) ug/dL TIBC (100-400) ug/dL % Saturation (20-55) % Transferrin (202-364) mg/dL Ferritin (26-388) ng/ml Total Bilirubin (0.2-1.0) mg/dL AST (15-37) U/L ALT (16-63) U/L Alkaline Phosphatase (46-116) U/L Lactate Dehydrogenase (85-227) U/L Creatine Kinase (39-308) U/L Troponin I (0.00-0.056) ng/mL C-Reactive Protein (<1.0) mg/dL NT-Pro-B Natriuret Pep (0-125) pg/mL Total Protein (6.4-8.2) g/dl Albumin (3.4-5.0) g/dl Globulin gm/dL Albumin/Globulin Ratio (1-2) Prealbumin (17.0-34.0) mg/dL Vitamin B12 (193-986) pg/ml Vitamin D 25-Hydroxy (30.0-100.0) ng/ml Folate (8.6-58.9) ng/mL Procalcitonin (<0.10) ng/mL Urine Color (Yellow) Urine Appearance (Clear) Urine pH (5.0-8.0) Ur Specific [place] (1.005-1.030) Urine Protein (Negative) Urine Glucose (UA) (Negative) Urine Ketones (Negative) Urine Occult Blood (Negative) Urine Nitrite (Negative) Urine Bilirubin (Negative) Urine Urobilinogen (0.2-1.0) Ur Leukocyte Esterase (Negative) Urine RBC (0-5) /hpf Urine WBC (0-5) /hpf Ur Squamous Epith Cells (0-5) /hpf Urine Bacteria (FEW) /hpf Urine Mucus (FEW) /hpf Ur Random Creatinine 152.0 H (30.0-125.0) mg/dL Ur Random Sodium 165 (40-220) mEq/L SARS Virus RNA (PCR) (NEGATIVE) MRSA (PCR) Negative 01/17/20 01/17/20 01/17/20 Range/Units 04:05 04:05 14:20 WBC (4.23-9.07) K/mm3 RBC (4.63-6.08) M/mm3 Hgb (13.7-17.5) gm/dl Hct (40.1-51.0) % MCV (79.0-92.2) fl MCH (25.7-32.2) pg MCHC (32.2-35.5) g/dl RDW Std Deviation (35.1-43.9) fL Plt Count (163-337) K/mm3 MPV (9.4-12.3) fl Neut % (Auto) (34.0-67.9) % Lymph % (Auto) (21.8-53.1) % [place] % (Auto) (5.3-12.2) % Eos % (Auto) (0.8-7.0) Baso % (Auto) (0.1-1.2) % Neut # (Auto) (1.78-5.38) K/mm3 Lymph # (Auto) (1.32-3.57) K/mm3 [place] # (Auto) (0.30-0.82) K/mm3 Eos # (Auto) (0.04-0.54) K/mm3 Baso # (Auto) (0.01-0.08) K/mm3 Manual Slide Review ESR (0-15) mm/hr Percent Retic (0.51-1.81) % PT (9.7-11.7) SECONDS INR APTT (22-31) SECONDS D-Dimer, Quantitative (0.19-0.50) mg/L Puncture Site ABG pH (7.35-7.45) ABG pCO2 (35.0-45.0) mmHg ABG pO2 (80.0-100.0) mmHg ABG HCO3 (22.0-26.0) meq/L ABG O2 Saturation (96.0-97.0) % ABG Base Excess (-2-2.0) Naeem Test A-a Gradient mmHg O2 Delivery Device Oxygen Flow Rate FiO2 (21.00-100.00) % Sodium 138 (136-145) mEq/L Potassium 3.7 (3.5-5.1) mEq/L Chloride 100 (98-107) mEq/L Carbon Dioxide 31 (21-32) mEq/L Anion Gap 10.7 (5-15) BUN 18 (7-18) mg/dL Creatinine 1.2 (0.7-1.3) mg/dL Est Cr Clr Drug Dosing 68.26 Estimated GFR (MDRD) > 60 (>60) mL/min BUN/Creatinine Ratio 15.0 (14-18) Glucose 134 H (80-115) mg/dL POC Glucose (80-115) mg/dL Hemoglobin A1c (4.50-6.20) % Lactic Acid (0.4-2.0) mmol/L Calcium 9.1 (8.5-10.1) mg/dL Phosphorus 3.3 (2.6-4.7) mg/dL Magnesium 1.8 (1.8-2.4) mg/dl Iron (65-175) ug/dL TIBC (100-400) ug/dL % Saturation (20-55) % Transferrin (202-364) mg/dL Ferritin (26-388) ng/ml Total Bilirubin 0.6 (0.2-1.0) mg/dL AST 21 (15-37) U/L ALT 25 (16-63) U/L Alkaline Phosphatase 66 (46-116) U/L Lactate Dehydrogenase (85-227) U/L Creatine Kinase (39-308) U/L Troponin I (0.00-0.056) ng/mL C-Reactive Protein (<1.0) mg/dL NT-Pro-B Natriuret Pep (0-125) pg/mL Total Protein 7.1 (6.4-8.2) g/dl Albumin 3.1 L (3.4-5.0) g/dl Globulin 4.0 gm/dL Albumin/Globulin Ratio 0.8 L (1-2) Prealbumin (17.0-34.0) mg/dL Vitamin B12 (193-986) pg/ml Vitamin D 25-Hydroxy (30.0-100.0) ng/ml Folate (8.6-58.9) ng/mL Procalcitonin 0.75 H (<0.10) ng/mL Urine Color (Yellow) Urine Appearance (Clear) Urine pH (5.0-8.0) Ur Specific [place] (1.005-1.030) Urine Protein (Negative) Urine Glucose (UA) (Negative) Urine Ketones (Negative) Urine Occult Blood (Negative) Urine Nitrite (Negative) Urine Bilirubin (Negative) Urine Urobilinogen (0.2-1.0) Ur Leukocyte Esterase (Negative) Urine RBC (0-5) /hpf Urine WBC (0-5) /hpf Ur Squamous Epith Cells (0-5) /hpf Urine Bacteria (FEW) /hpf Urine Mucus (FEW) /hpf Ur Random Creatinine (30.0-125.0) mg/dL Ur Random Sodium (40-220) mEq/L SARS Virus RNA (PCR) (NEGATIVE) MRSA (PCR) 01/17/20 01/17/20 01/17/20 Range/Units 14:20 14:20 14:20 WBC (4.23-9.07) K/mm3 RBC (4.63-6.08) M/mm3 Hgb (13.7-17.5) gm/dl Hct (40.1-51.0) % MCV (79.0-92.2) fl MCH (25.7-32.2) pg MCHC (32.2-35.5) g/dl RDW Std Deviation (35.1-43.9) fL Plt Count (163-337) K/mm3 MPV (9.4-12.3) fl Neut % (Auto) (34.0-67.9) % Lymph % (Auto) (21.8-53.1) % [place] % (Auto) (5.3-12.2) % Eos % (Auto) (0.8-7.0) Baso % (Auto) (0.1-1.2) % Neut # (Auto) (1.78-5.38) K/mm3 Lymph # (Auto) (1.32-3.57) K/mm3 [place] # (Auto) (0.30-0.82) K/mm3 Eos # (Auto) (0.04-0.54) K/mm3 Baso # (Auto) (0.01-0.08) K/mm3 Manual Slide Review ESR (0-15) mm/hr Percent Retic 1.57 (0.51-1.81) % PT (9.7-11.7) SECONDS INR APTT (22-31) SECONDS D-Dimer, Quantitative (0.19-0.50) mg/L Puncture Site ABG pH (7.35-7.45) ABG pCO2 (35.0-45.0) mmHg ABG pO2 (80.0-100.0) mmHg ABG HCO3 (22.0-26.0) meq/L ABG O2 Saturation (96.0-97.0) % ABG Base Excess (-2-2.0) Naeem Test A-a Gradient mmHg O2 Delivery Device Oxygen Flow Rate FiO2 (21.00-100.00) % Sodium (136-145) mEq/L Potassium (3.5-5.1) mEq/L Chloride (98-107) mEq/L Carbon Dioxide (21-32) mEq/L Anion Gap (5-15) BUN (7-18) mg/dL Creatinine (0.7-1.3) mg/dL Est Cr Clr Drug Dosing Estimated GFR (MDRD) (>60) mL/min BUN/Creatinine Ratio (14-18) Glucose (80-115) mg/dL POC Glucose (80-115) mg/dL Hemoglobin A1c 7.50 H (4.50-6.20) % Lactic Acid (0.4-2.0) mmol/L Calcium (8.5-10.1) mg/dL Phosphorus (2.6-4.7) mg/dL Magnesium (1.8-2.4) mg/dl Iron 15 L (65-175) ug/dL TIBC 523 H (100-400) ug/dL % Saturation 3 L (20-55) % Transferrin 418 H (202-364) mg/dL Ferritin (26-388) ng/ml Total Bilirubin (0.2-1.0) mg/dL AST (15-37) U/L ALT (16-63) U/L Alkaline Phosphatase (46-116) U/L Lactate Dehydrogenase (85-227) U/L Creatine Kinase (39-308) U/L Troponin I (0.00-0.056) ng/mL C-Reactive Protein (<1.0) mg/dL NT-Pro-B Natriuret Pep (0-125) pg/mL Total Protein (6.4-8.2) g/dl Albumin (3.4-5.0) g/dl Globulin gm/dL Albumin/Globulin Ratio (1-2) Prealbumin (17.0-34.0) mg/dL Vitamin B12 506 (193-986) pg/ml Vitamin D 25-Hydroxy (30.0-100.0) ng/ml Folate 28.3 (8.6-58.9) ng/mL Procalcitonin (<0.10) ng/mL Urine Color (Yellow) Urine Appearance (Clear) Urine pH (5.0-8.0) Ur Specific [place] (1.005-1.030) Urine Protein (Negative) Urine Glucose (UA) (Negative) Urine Ketones (Negative) Urine Occult Blood (Negative) Urine Nitrite (Negative) Urine Bilirubin (Negative) Urine Urobilinogen (0.2-1.0) Ur Leukocyte Esterase (Negative) Urine RBC (0-5) /hpf Urine WBC (0-5) /hpf Ur Squamous Epith Cells (0-5) /hpf Urine Bacteria (FEW) /hpf Urine Mucus (FEW) /hpf Ur Random Creatinine (30.0-125.0) mg/dL Ur Random Sodium (40-220) mEq/L SARS Virus RNA (PCR) (NEGATIVE) MRSA (PCR) 01/17/20 01/17/20 01/17/20 Range/Units 14:20 14:20 16:47 WBC (4.23-9.07) K/mm3 RBC (4.63-6.08) M/mm3 Hgb (13.7-17.5) gm/dl Hct (40.1-51.0) % MCV (79.0-92.2) fl MCH (25.7-32.2) pg MCHC (32.2-35.5) g/dl RDW Std Deviation (35.1-43.9) fL Plt Count (163-337) K/mm3 MPV (9.4-12.3) fl Neut % (Auto) (34.0-67.9) % Lymph % (Auto) (21.8-53.1) % [place] % (Auto) (5.3-12.2) % Eos % (Auto) (0.8-7.0) Baso % (Auto) (0.1-1.2) % Neut # (Auto) (1.78-5.38) K/mm3 Lymph # (Auto) (1.32-3.57) K/mm3 [place] # (Auto) (0.30-0.82) K/mm3 Eos # (Auto) (0.04-0.54) K/mm3 Baso # (Auto) (0.01-0.08) K/mm3 Manual Slide Review ESR (0-15) mm/hr Percent Retic (0.51-1.81) % PT (9.7-11.7) SECONDS INR APTT (22-31) SECONDS D-Dimer, Quantitative (0.19-0.50) mg/L Puncture Site ABG pH (7.35-7.45) ABG pCO2 (35.0-45.0) mmHg ABG pO2 (80.0-100.0) mmHg ABG HCO3 (22.0-26.0) meq/L ABG O2 Saturation (96.0-97.0) % ABG Base Excess (-2-2.0) Naeem Test A-a Gradient mmHg O2 Delivery Device Oxygen Flow Rate FiO2 (21.00-100.00) % Sodium (136-145) mEq/L Potassium (3.5-5.1) mEq/L Chloride (98-107) mEq/L Carbon Dioxide (21-32) mEq/L Anion Gap (5-15) BUN (7-18) mg/dL Creatinine (0.7-1.3) mg/dL Est Cr Clr Drug Dosing Estimated GFR (MDRD) (>60) mL/min BUN/Creatinine Ratio (14-18) Glucose (80-115) mg/dL POC Glucose 162 H (80-115) mg/dL Hemoglobin A1c (4.50-6.20) % Lactic Acid (0.4-2.0) mmol/L Calcium (8.5-10.1) mg/dL Phosphorus (2.6-4.7) mg/dL Magnesium (1.8-2.4) mg/dl Iron (65-175) ug/dL TIBC (100-400) ug/dL % Saturation (20-55) % Transferrin (202-364) mg/dL Ferritin (26-388) ng/ml Total Bilirubin (0.2-1.0) mg/dL AST (15-37) U/L ALT (16-63) U/L Alkaline Phosphatase (46-116) U/L Lactate Dehydrogenase (85-227) U/L Creatine Kinase (39-308) U/L Troponin I (0.00-0.056) ng/mL C-Reactive Protein (<1.0) mg/dL NT-Pro-B Natriuret Pep (0-125) pg/mL Total Protein (6.4-8.2) g/dl Albumin (3.4-5.0) g/dl Globulin gm/dL Albumin/Globulin Ratio (1-2) Prealbumin 19.3 (17.0-34.0) mg/dL Vitamin B12 (193-986) pg/ml Vitamin D 25-Hydroxy 38.1 (30.0-100.0) ng/ml Folate (8.6-58.9) ng/mL Procalcitonin (<0.10) ng/mL Urine Color (Yellow) Urine Appearance (Clear) Urine pH (5.0-8.0) Ur Specific [place] (1.005-1.030) Urine Protein (Negative) Urine Glucose (UA) (Negative) Urine Ketones (Negative) Urine Occult Blood (Negative) Urine Nitrite (Negative) Urine Bilirubin (Negative) Urine Urobilinogen (0.2-1.0) Ur Leukocyte Esterase (Negative) Urine RBC (0-5) /hpf Urine WBC (0-5) /hpf Ur Squamous Epith Cells (0-5) /hpf Urine Bacteria (FEW) /hpf Urine Mucus (FEW) /hpf Ur Random Creatinine (30.0-125.0) mg/dL Ur Random Sodium (40-220) mEq/L SARS Virus RNA (PCR) (NEGATIVE) MRSA (PCR) 01/17/20 01/18/20 01/18/20 Range/Units 21:23 06:06 06:06 WBC 18.37 H (4.23-9.07) K/mm3 RBC 4.84 (4.63-6.08) M/mm3 Hgb 11.3 L (13.7-17.5) gm/dl Hct 40.0 L (40.1-51.0) % MCV 82.6 (79.0-92.2) fl MCH 23.3 L (25.7-32.2) pg MCHC 28.3 L (32.2-35.5) g/dl RDW Std Deviation 53.9 H (35.1-43.9) fL Plt Count 319 (163-337) K/mm3 MPV 10.7 (9.4-12.3) fl Neut % (Auto) 81.3 H (34.0-67.9) % Lymph % (Auto) 7.7 L (21.8-53.1) % [place] % (Auto) 9.6 (5.3-12.2) % Eos % (Auto) 0.8 (0.8-7.0) Baso % (Auto) 0.3 (0.1-1.2) % Neut # (Auto) 14.94 H (1.78-5.38) K/mm3 Lymph # (Auto) 1.41 (1.32-3.57) K/mm3 [place] # (Auto) 1.76 H (0.30-0.82) K/mm3 Eos # (Auto) 0.14 (0.04-0.54) K/mm3 Baso # (Auto) 0.06 (0.01-0.08) K/mm3 Manual Slide Review Abnormal smear ESR (0-15) mm/hr Percent Retic (0.51-1.81) % PT (9.7-11.7) SECONDS INR APTT (22-31) SECONDS D-Dimer, Quantitative (0.19-0.50) mg/L Puncture Site ABG pH (7.35-7.45) ABG pCO2 (35.0-45.0) mmHg ABG pO2 (80.0-100.0) mmHg ABG HCO3 (22.0-26.0) meq/L ABG O2 Saturation (96.0-97.0) % ABG Base Excess (-2-2.0) Naeem Test A-a Gradient mmHg O2 Delivery Device Oxygen Flow Rate FiO2 (21.00-100.00) % Sodium 137 (136-145) mEq/L Potassium 4.2 (3.5-5.1) mEq/L Chloride 99 (98-107) mEq/L Carbon Dioxide 33 H (21-32) mEq/L Anion Gap 9.2 (5-15) BUN 20 H (7-18) mg/dL Creatinine 1.2 (0.7-1.3) mg/dL Est Cr Clr Drug Dosing 68.26 Estimated GFR (MDRD) > 60 (>60) mL/min BUN/Creatinine Ratio 16.7 (14-18) Glucose 149 H (80-115) mg/dL POC Glucose 200 H (80-115) mg/dL Hemoglobin A1c (4.50-6.20) % Lactic Acid (0.4-2.0) mmol/L Calcium 9.7 (8.5-10.1) mg/dL Phosphorus 3.3 (2.6-4.7) mg/dL Magnesium 2.2 (1.8-2.4) mg/dl Iron (65-175) ug/dL TIBC (100-400) ug/dL % Saturation (20-55) % Transferrin (202-364) mg/dL Ferritin (26-388) ng/ml Total Bilirubin (0.2-1.0) mg/dL AST (15-37) U/L ALT (16-63) U/L Alkaline Phosphatase (46-116) U/L Lactate Dehydrogenase (85-227) U/L Creatine Kinase (39-308) U/L Troponin I (0.00-0.056) ng/mL C-Reactive Protein (<1.0) mg/dL NT-Pro-B Natriuret Pep (0-125) pg/mL Total Protein (6.4-8.2) g/dl Albumin (3.4-5.0) g/dl Globulin gm/dL Albumin/Globulin Ratio (1-2) Prealbumin (17.0-34.0) mg/dL Vitamin B12 (193-986) pg/ml Vitamin D 25-Hydroxy (30.0-100.0) ng/ml Folate (8.6-58.9) ng/mL Procalcitonin (<0.10) ng/mL Urine Color (Yellow) Urine Appearance (Clear) Urine pH (5.0-8.0) Ur Specific [place] (1.005-1.030) Urine Protein (Negative) Urine Glucose (UA) (Negative) Urine Ketones (Negative) Urine Occult Blood (Negative) Urine Nitrite (Negative) Urine Bilirubin (Negative) Urine Urobilinogen (0.2-1.0) Ur Leukocyte Esterase (Negative) Urine RBC (0-5) /hpf Urine WBC (0-5) /hpf Ur Squamous Epith Cells (0-5) /hpf Urine Bacteria (FEW) /hpf Urine Mucus (FEW) /hpf Ur Random Creatinine (30.0-125.0) mg/dL Ur Random Sodium (40-220) mEq/L SARS Virus RNA (PCR) (NEGATIVE) MRSA (PCR) 01/18/20 01/18/20 01/18/20 Range/Units 06:06 07:04 07:52 WBC (4.23-9.07) K/mm3 RBC (4.63-6.08) M/mm3 Hgb (13.7-17.5) gm/dl Hct (40.1-51.0) % MCV (79.0-92.2) fl MCH (25.7-32.2) pg MCHC (32.2-35.5) g/dl RDW Std Deviation (35.1-43.9) fL Plt Count (163-337) K/mm3 MPV (9.4-12.3) fl Neut % (Auto) (34.0-67.9) % Lymph % (Auto) (21.8-53.1) % [place] % (Auto) (5.3-12.2) % Eos % (Auto) (0.8-7.0) Baso % (Auto) (0.1-1.2) % Neut # (Auto) (1.78-5.38) K/mm3 Lymph # (Auto) (1.32-3.57) K/mm3 [place] # (Auto) (0.30-0.82) K/mm3 Eos # (Auto) (0.04-0.54) K/mm3 Baso # (Auto) (0.01-0.08) K/mm3 Manual Slide Review ESR 50 H (0-15) mm/hr Percent Retic (0.51-1.81) % PT (9.7-11.7) SECONDS INR APTT (22-31) SECONDS D-Dimer, Quantitative (0.19-0.50) mg/L Puncture Site ABG pH (7.35-7.45) ABG pCO2 (35.0-45.0) mmHg ABG pO2 (80.0-100.0) mmHg ABG HCO3 (22.0-26.0) meq/L ABG O2 Saturation (96.0-97.0) % ABG Base Excess (-2-2.0) Naeem Test A-a Gradient mmHg O2 Delivery Device Oxygen Flow Rate FiO2 (21.00-100.00) % Sodium (136-145) mEq/L Potassium (3.5-5.1) mEq/L Chloride (98-107) mEq/L Carbon Dioxide (21-32) mEq/L Anion Gap (5-15) BUN (7-18) mg/dL Creatinine (0.7-1.3) mg/dL Est Cr Clr Drug Dosing Estimated GFR (MDRD) (>60) mL/min BUN/Creatinine Ratio (14-18) Glucose (80-115) mg/dL POC Glucose 149 H 156 H (80-115) mg/dL Hemoglobin A1c (4.50-6.20) % Lactic Acid (0.4-2.0) mmol/L Calcium (8.5-10.1) mg/dL Phosphorus (2.6-4.7) mg/dL Magnesium (1.8-2.4) mg/dl Iron (65-175) ug/dL TIBC (100-400) ug/dL % Saturation (20-55) % Transferrin (202-364) mg/dL Ferritin (26-388) ng/ml Total Bilirubin (0.2-1.0) mg/dL AST (15-37) U/L ALT (16-63) U/L Alkaline Phosphatase (46-116) U/L Lactate Dehydrogenase (85-227) U/L Creatine Kinase (39-308) U/L Troponin I (0.00-0.056) ng/mL C-Reactive Protein (<1.0) mg/dL NT-Pro-B Natriuret Pep (0-125) pg/mL Total Protein (6.4-8.2) g/dl Albumin (3.4-5.0) g/dl Globulin gm/dL Albumin/Globulin Ratio (1-2) Prealbumin (17.0-34.0) mg/dL Vitamin B12 (193-986) pg/ml Vitamin D 25-Hydroxy (30.0-100.0) ng/ml Folate (8.6-58.9) ng/mL Procalcitonin (<0.10) ng/mL Urine Color (Yellow) Urine Appearance (Clear) Urine pH (5.0-8.0) Ur Specific [place] (1.005-1.030) Urine Protein (Negative) Urine Glucose (UA) (Negative) Urine Ketones (Negative) Urine Occult Blood (Negative) Urine Nitrite (Negative) Urine Bilirubin (Negative) Urine Urobilinogen (0.2-1.0) Ur Leukocyte Esterase (Negative) Urine RBC (0-5) /hpf Urine WBC (0-5) /hpf Ur Squamous Epith Cells (0-5) /hpf Urine Bacteria (FEW) /hpf Urine Mucus (FEW) /hpf Ur Random Creatinine (30.0-125.0) mg/dL Ur Random Sodium (40-220) mEq/L SARS Virus RNA (PCR) (NEGATIVE) MRSA (PCR) 01/18/20 01/18/20 01/18/20 Range/Units 09:40 12:02 16:44 WBC (4.23-9.07) K/mm3 RBC (4.63-6.08) M/mm3 Hgb (13.7-17.5) gm/dl Hct (40.1-51.0) % MCV (79.0-92.2) fl MCH (25.7-32.2) pg MCHC (32.2-35.5) g/dl RDW Std Deviation (35.1-43.9) fL Plt Count (163-337) K/mm3 MPV (9.4-12.3) fl Neut % (Auto) (34.0-67.9) % Lymph % (Auto) (21.8-53.1) % [place] % (Auto) (5.3-12.2) % Eos % (Auto) (0.8-7.0) Baso % (Auto) (0.1-1.2) % Neut # (Auto) (1.78-5.38) K/mm3 Lymph # (Auto) (1.32-3.57) K/mm3 [place] # (Auto) (0.30-0.82) K/mm3 Eos # (Auto) (0.04-0.54) K/mm3 Baso # (Auto) (0.01-0.08) K/mm3 Manual Slide Review ESR (0-15) mm/hr Percent Retic (0.51-1.81) % PT (9.7-11.7) SECONDS INR APTT (22-31) SECONDS D-Dimer, Quantitative (0.19-0.50) mg/L Puncture Site ABG pH (7.35-7.45) ABG pCO2 (35.0-45.0) mmHg ABG pO2 (80.0-100.0) mmHg ABG HCO3 (22.0-26.0) meq/L ABG O2 Saturation (96.0-97.0) % ABG Base Excess (-2-2.0) Naeem Test A-a Gradient mmHg O2 Delivery Device Oxygen Flow Rate FiO2 (21.00-100.00) % Sodium (136-145) mEq/L Potassium (3.5-5.1) mEq/L Chloride (98-107) mEq/L Carbon Dioxide (21-32) mEq/L Anion Gap (5-15) BUN (7-18) mg/dL Creatinine (0.7-1.3) mg/dL Est Cr Clr Drug Dosing Estimated GFR (MDRD) (>60) mL/min BUN/Creatinine Ratio (14-18) Glucose (80-115) mg/dL POC Glucose 198 H 189 H 242 H (80-115) mg/dL Hemoglobin A1c (4.50-6.20) % Lactic Acid (0.4-2.0) mmol/L Calcium (8.5-10.1) mg/dL Phosphorus (2.6-4.7) mg/dL Magnesium (1.8-2.4) mg/dl Iron (65-175) ug/dL TIBC (100-400) ug/dL % Saturation (20-55) % Transferrin (202-364) mg/dL Ferritin (26-388) ng/ml Total Bilirubin (0.2-1.0) mg/dL AST (15-37) U/L ALT (16-63) U/L Alkaline Phosphatase (46-116) U/L Lactate Dehydrogenase (85-227) U/L Creatine Kinase (39-308) U/L Troponin I (0.00-0.056) ng/mL C-Reactive Protein (<1.0) mg/dL NT-Pro-B Natriuret Pep (0-125) pg/mL Total Protein (6.4-8.2) g/dl Albumin (3.4-5.0) g/dl Globulin gm/dL Albumin/Globulin Ratio (1-2) Prealbumin (17.0-34.0) mg/dL Vitamin B12 (193-986) pg/ml Vitamin D 25-Hydroxy (30.0-100.0) ng/ml Folate (8.6-58.9) ng/mL Procalcitonin (<0.10) ng/mL Urine Color (Yellow) Urine Appearance (Clear) Urine pH (5.0-8.0) Ur Specific [place] (1.005-1.030) Urine Protein (Negative) Urine Glucose (UA) (Negative) Urine Ketones (Negative) Urine Occult Blood (Negative) Urine Nitrite (Negative) Urine Bilirubin (Negative) Urine Urobilinogen (0.2-1.0) Ur Leukocyte Esterase (Negative) Urine RBC (0-5) /hpf Urine WBC (0-5) /hpf Ur Squamous Epith Cells (0-5) /hpf Urine Bacteria (FEW) /hpf Urine Mucus (FEW) /hpf Ur Random Creatinine (30.0-125.0) mg/dL Ur Random Sodium (40-220) mEq/L SARS Virus RNA (PCR) (NEGATIVE) MRSA (PCR) 01/18/20 01/19/20 01/19/20 Range/Units 21:19 06:05 10:02 WBC (4.23-9.07) K/mm3 RBC (4.63-6.08) M/mm3 Hgb (13.7-17.5) gm/dl Hct (40.1-51.0) % MCV (79.0-92.2) fl MCH (25.7-32.2) pg MCHC (32.2-35.5) g/dl RDW Std Deviation (35.1-43.9) fL Plt Count (163-337) K/mm3 MPV (9.4-12.3) fl Neut % (Auto) (34.0-67.9) % Lymph % (Auto) (21.8-53.1) % [place] % (Auto) (5.3-12.2) % Eos % (Auto) (0.8-7.0) Baso % (Auto) (0.1-1.2) % Neut # (Auto) (1.78-5.38) K/mm3 Lymph # (Auto) (1.32-3.57) K/mm3 [place] # (Auto) (0.30-0.82) K/mm3 Eos # (Auto) (0.04-0.54) K/mm3 Baso # (Auto) (0.01-0.08) K/mm3 Manual Slide Review ESR (0-15) mm/hr Percent Retic (0.51-1.81) % PT (9.7-11.7) SECONDS INR APTT (22-31) SECONDS D-Dimer, Quantitative (0.19-0.50) mg/L Puncture Site ABG pH (7.35-7.45) ABG pCO2 (35.0-45.0) mmHg ABG pO2 (80.0-100.0) mmHg ABG HCO3 (22.0-26.0) meq/L ABG O2 Saturation (96.0-97.0) % ABG Base Excess (-2-2.0) Naeem Test A-a Gradient mmHg O2 Delivery Device Oxygen Flow Rate FiO2 (21.00-100.00) % Sodium (136-145) mEq/L Potassium (3.5-5.1) mEq/L Chloride (98-107) mEq/L Carbon Dioxide (21-32) mEq/L Anion Gap (5-15) BUN (7-18) mg/dL Creatinine (0.7-1.3) mg/dL Est Cr Clr Drug Dosing Estimated GFR (MDRD) (>60) mL/min BUN/Creatinine Ratio (14-18) Glucose (80-115) mg/dL POC Glucose 167 H 150 H (80-115) mg/dL Hemoglobin A1c (4.50-6.20) % Lactic Acid (0.4-2.0) mmol/L Calcium (8.5-10.1) mg/dL Phosphorus (2.6-4.7) mg/dL Magnesium (1.8-2.4) mg/dl Iron (65-175) ug/dL TIBC (100-400) ug/dL % Saturation (20-55) % Transferrin (202-364) mg/dL Ferritin (26-388) ng/ml Total Bilirubin (0.2-1.0) mg/dL AST (15-37) U/L ALT (16-63) U/L Alkaline Phosphatase (46-116) U/L Lactate Dehydrogenase (85-227) U/L Creatine Kinase (39-308) U/L Troponin I (0.00-0.056) ng/mL C-Reactive Protein (<1.0) mg/dL NT-Pro-B Natriuret Pep (0-125) pg/mL Total Protein (6.4-8.2) g/dl Albumin (3.4-5.0) g/dl Globulin gm/dL Albumin/Globulin Ratio (1-2) Prealbumin (17.0-34.0) mg/dL Vitamin B12 (193-986) pg/ml Vitamin D 25-Hydroxy (30.0-100.0) ng/ml Folate (8.6-58.9) ng/mL Procalcitonin 0.54 H (<0.10) ng/mL Urine Color (Yellow) Urine Appearance (Clear) Urine pH (5.0-8.0) Ur Specific [place] (1.005-1.030) Urine Protein (Negative) Urine Glucose (UA) (Negative) Urine Ketones (Negative) Urine Occult Blood (Negative) Urine Nitrite (Negative) Urine Bilirubin (Negative) Urine Urobilinogen (0.2-1.0) Ur Leukocyte Esterase (Negative) Urine RBC (0-5) /hpf Urine WBC (0-5) /hpf Ur Squamous Epith Cells (0-5) /hpf Urine Bacteria (FEW) /hpf Urine Mucus (FEW) /hpf Ur Random Creatinine (30.0-125.0) mg/dL Ur Random Sodium (40-220) mEq/L SARS Virus RNA (PCR) (NEGATIVE) MRSA (PCR) 01/19/20 01/19/20 01/19/20 Range/Units 10:02 10:02 11:56 WBC 13.56 H (4.23-9.07) K/mm3 RBC 5.11 (4.63-6.08) M/mm3 Hgb 12.1 L (13.7-17.5) gm/dl Hct 41.6 (40.1-51.0) % MCV 81.4 (79.0-92.2) fl MCH 23.7 L (25.7-32.2) pg MCHC 29.1 L (32.2-35.5) g/dl RDW Std Deviation 52.8 H (35.1-43.9) fL Plt Count 308 (163-337) K/mm3 MPV 10.9 (9.4-12.3) fl Neut % (Auto) 82.9 H (34.0-67.9) % Lymph % (Auto) 8.0 L (21.8-53.1) % [place] % (Auto) 6.7 (5.3-12.2) % Eos % (Auto) 1.3 (0.8-7.0) Baso % (Auto) 0.5 (0.1-1.2) % Neut # (Auto) 11.25 H (1.78-5.38) K/mm3 Lymph # (Auto) 1.08 L (1.32-3.57) K/mm3 [place] # (Auto) 0.91 H (0.30-0.82) K/mm3 Eos # (Auto) 0.17 (0.04-0.54) K/mm3 Baso # (Auto) 0.07 (0.01-0.08) K/mm3 Manual Slide Review Abnormal smear ESR (0-15) mm/hr Percent Retic (0.51-1.81) % PT (9.7-11.7) SECONDS INR APTT (22-31) SECONDS D-Dimer, Quantitative (0.19-0.50) mg/L Puncture Site ABG pH (7.35-7.45) ABG pCO2 (35.0-45.0) mmHg ABG pO2 (80.0-100.0) mmHg ABG HCO3 (22.0-26.0) meq/L ABG O2 Saturation (96.0-97.0) % ABG Base Excess (-2-2.0) Naeem Test A-a Gradient mmHg O2 Delivery Device Oxygen Flow Rate FiO2 (21.00-100.00) % Sodium 139 (136-145) mEq/L Potassium 3.8 (3.5-5.1) mEq/L Chloride 98 (98-107) mEq/L Carbon Dioxide 33 H (21-32) mEq/L Anion Gap 11.8 (5-15) BUN 21 H (7-18) mg/dL Creatinine 1.1 (0.7-1.3) mg/dL Est Cr Clr Drug Dosing 74.46 Estimated GFR (MDRD) > 60 (>60) mL/min BUN/Creatinine Ratio 19.1 H (14-18) Glucose 155 H (80-115) mg/dL POC Glucose 164 H (80-115) mg/dL Hemoglobin A1c (4.50-6.20) % Lactic Acid (0.4-2.0) mmol/L Calcium 9.6 (8.5-10.1) mg/dL Phosphorus (2.6-4.7) mg/dL Magnesium 2.0 (1.8-2.4) mg/dl Iron (65-175) ug/dL TIBC (100-400) ug/dL % Saturation (20-55) % Transferrin (202-364) mg/dL Ferritin (26-388) ng/ml Total Bilirubin 0.3 (0.2-1.0) mg/dL AST 14 L (15-37) U/L ALT 19 (16-63) U/L Alkaline Phosphatase 85 (46-116) U/L Lactate Dehydrogenase (85-227) U/L Creatine Kinase (39-308) U/L Troponin I (0.00-0.056) ng/mL C-Reactive Protein 26.8 H* (<1.0) mg/dL NT-Pro-B Natriuret Pep (0-125) pg/mL Total Protein 8.1 (6.4-8.2) g/dl Albumin 3.1 L (3.4-5.0) g/dl Globulin 5.0 gm/dL Albumin/Globulin Ratio 0.6 L (1-2) Prealbumin (17.0-34.0) mg/dL Vitamin B12 (193-986) pg/ml Vitamin D 25-Hydroxy (30.0-100.0) ng/ml Folate (8.6-58.9) ng/mL Procalcitonin (<0.10) ng/mL Urine Color (Yellow) Urine Appearance (Clear) Urine pH (5.0-8.0) Ur Specific [place] (1.005-1.030) Urine Protein (Negative) Urine Glucose (UA) (Negative) Urine Ketones (Negative) Urine Occult Blood (Negative) Urine Nitrite (Negative) Urine Bilirubin (Negative) Urine Urobilinogen (0.2-1.0) Ur Leukocyte Esterase (Negative) Urine RBC (0-5) /hpf Urine WBC (0-5) /hpf Ur Squamous Epith Cells (0-5) /hpf Urine Bacteria (FEW) /hpf Urine Mucus (FEW) /hpf Ur Random Creatinine (30.0-125.0) mg/dL Ur Random Sodium (40-220) mEq/L SARS Virus RNA (PCR) (NEGATIVE) MRSA (PCR) 01/19/20 01/19/20 01/20/20 Range/Units 16:58 21:17 04:45 WBC 12.49 H (4.23-9.07) K/mm3 RBC 4.82 (4.63-6.08) M/mm3 Hgb 11.2 L (13.7-17.5) gm/dl Hct 39.0 L (40.1-51.0) % MCV 80.9 (79.0-92.2) fl MCH 23.2 L (25.7-32.2) pg MCHC 28.7 L (32.2-35.5) g/dl RDW Std Deviation 51.7 H (35.1-43.9) fL Plt Count 267 (163-337) K/mm3 MPV 11.1 (9.4-12.3) fl Neut % (Auto) 75.6 H (34.0-67.9) % Lymph % (Auto) 9.7 L (21.8-53.1) % [place] % (Auto) 10.6 (5.3-12.2) % Eos % (Auto) 2.4 (0.8-7.0) Baso % (Auto) 0.9 (0.1-1.2) % Neut # (Auto) 9.44 H (1.78-5.38) K/mm3 Lymph # (Auto) 1.21 L (1.32-3.57) K/mm3 [place] # (Auto) 1.33 H (0.30-0.82) K/mm3 Eos # (Auto) 0.30 (0.04-0.54) K/mm3 Baso # (Auto) 0.11 H (0.01-0.08) K/mm3 Manual Slide Review Abnormal smear ESR (0-15) mm/hr Percent Retic (0.51-1.81) % PT (9.7-11.7) SECONDS INR APTT (22-31) SECONDS D-Dimer, Quantitative (0.19-0.50) mg/L Puncture Site ABG pH (7.35-7.45) ABG pCO2 (35.0-45.0) mmHg ABG pO2 (80.0-100.0) mmHg ABG HCO3 (22.0-26.0) meq/L ABG O2 Saturation (96.0-97.0) % ABG Base Excess (-2-2.0) Naeem Test A-a Gradient mmHg O2 Delivery Device Oxygen Flow Rate FiO2 (21.00-100.00) % Sodium (136-145) mEq/L Potassium (3.5-5.1) mEq/L Chloride (98-107) mEq/L Carbon Dioxide (21-32) mEq/L Anion Gap (5-15) BUN (7-18) mg/dL Creatinine (0.7-1.3) mg/dL Est Cr Clr Drug Dosing Estimated GFR (MDRD) (>60) mL/min BUN/Creatinine Ratio (14-18) Glucose (80-115) mg/dL POC Glucose 151 H 188 H (80-115) mg/dL Hemoglobin A1c (4.50-6.20) % Lactic Acid (0.4-2.0) mmol/L Calcium (8.5-10.1) mg/dL Phosphorus (2.6-4.7) mg/dL Magnesium (1.8-2.4) mg/dl Iron (65-175) ug/dL TIBC (100-400) ug/dL % Saturation (20-55) % Transferrin (202-364) mg/dL Ferritin (26-388) ng/ml Total Bilirubin (0.2-1.0) mg/dL AST (15-37) U/L ALT (16-63) U/L Alkaline Phosphatase (46-116) U/L Lactate Dehydrogenase (85-227) U/L Creatine Kinase (39-308) U/L Troponin I (0.00-0.056) ng/mL C-Reactive Protein (<1.0) mg/dL NT-Pro-B Natriuret Pep (0-125) pg/mL Total Protein (6.4-8.2) g/dl Albumin (3.4-5.0) g/dl Globulin gm/dL Albumin/Globulin Ratio (1-2) Prealbumin (17.0-34.0) mg/dL Vitamin B12 (193-986) pg/ml Vitamin D 25-Hydroxy (30.0-100.0) ng/ml Folate (8.6-58.9) ng/mL Procalcitonin (<0.10) ng/mL Urine Color (Yellow) Urine Appearance (Clear) Urine pH (5.0-8.0) Ur Specific [place] (1.005-1.030) Urine Protein (Negative) Urine Glucose (UA) (Negative) Urine Ketones (Negative) Urine Occult Blood (Negative) Urine Nitrite (Negative) Urine Bilirubin (Negative) Urine Urobilinogen (0.2-1.0) Ur Leukocyte Esterase (Negative) Urine RBC (0-5) /hpf Urine WBC (0-5) /hpf Ur Squamous Epith Cells (0-5) /hpf Urine Bacteria (FEW) /hpf Urine Mucus (FEW) /hpf Ur Random Creatinine (30.0-125.0) mg/dL Ur Random Sodium (40-220) mEq/L SARS Virus RNA (PCR) (NEGATIVE) MRSA (PCR) 01/20/20 01/20/20 Range/Units 04:45 06:49 WBC (4.23-9.07) K/mm3 RBC (4.63-6.08) M/mm3 Hgb (13.7-17.5) gm/dl Hct (40.1-51.0) % MCV (79.0-92.2) fl MCH (25.7-32.2) pg MCHC (32.2-35.5) g/dl RDW Std Deviation (35.1-43.9) fL Plt Count (163-337) K/mm3 MPV (9.4-12.3) fl Neut % (Auto) (34.0-67.9) % Lymph % (Auto) (21.8-53.1) % [place] % (Auto) (5.3-12.2) % Eos % (Auto) (0.8-7.0) Baso % (Auto) (0.1-1.2) % Neut # (Auto) (1.78-5.38) K/mm3 Lymph # (Auto) (1.32-3.57) K/mm3 [place] # (Auto) (0.30-0.82) K/mm3 Eos # (Auto) (0.04-0.54) K/mm3 Baso # (Auto) (0.01-0.08) K/mm3 Manual Slide Review ESR (0-15) mm/hr Percent Retic (0.51-1.81) % PT (9.7-11.7) SECONDS INR APTT (22-31) SECONDS D-Dimer, Quantitative (0.19-0.50) mg/L Puncture Site ABG pH (7.35-7.45) ABG pCO2 (35.0-45.0) mmHg ABG pO2 (80.0-100.0) mmHg ABG HCO3 (22.0-26.0) meq/L ABG O2 Saturation (96.0-97.0) % ABG Base Excess (-2-2.0) Naeem Test A-a Gradient mmHg O2 Delivery Device Oxygen Flow Rate FiO2 (21.00-100.00) % Sodium 137 (136-145) mEq/L Potassium 3.9 (3.5-5.1) mEq/L Chloride 99 (98-107) mEq/L Carbon Dioxide 27 (21-32) mEq/L Anion Gap 14.9 (5-15) BUN 23 H (7-18) mg/dL Creatinine 1.1 (0.7-1.3) mg/dL Est Cr Clr Drug Dosing 74.46 Estimated GFR (MDRD) > 60 (>60) mL/min BUN/Creatinine Ratio 20.9 H (14-18) Glucose 144 H (80-115) mg/dL POC Glucose 151 H (80-115) mg/dL Hemoglobin A1c (4.50-6.20) % Lactic Acid (0.4-2.0) mmol/L Calcium 9.0 (8.5-10.1) mg/dL Phosphorus (2.6-4.7) mg/dL Magnesium 1.8 (1.8-2.4) mg/dl Iron (65-175) ug/dL TIBC (100-400) ug/dL % Saturation (20-55) % Transferrin (202-364) mg/dL Ferritin (26-388) ng/ml Total Bilirubin (0.2-1.0) mg/dL AST (15-37) U/L ALT (16-63) U/L Alkaline Phosphatase (46-116) U/L Lactate Dehydrogenase (85-227) U/L Creatine Kinase (39-308) U/L Troponin I (0.00-0.056) ng/mL C-Reactive Protein 19.2 H* (<1.0) mg/dL NT-Pro-B Natriuret Pep (0-125) pg/mL Total Protein (6.4-8.2) g/dl Albumin (3.4-5.0) g/dl Globulin gm/dL Albumin/Globulin Ratio (1-2) Prealbumin (17.0-34.0) mg/dL Vitamin B12 (193-986) pg/ml Vitamin D 25-Hydroxy (30.0-100.0) ng/ml Folate (8.6-58.9) ng/mL Procalcitonin (<0.10) ng/mL Urine Color (Yellow) Urine Appearance (Clear) Urine pH (5.0-8.0) Ur Specific [place] (1.005-1.030) Urine Protein (Negative) Urine Glucose (UA) (Negative) Urine Ketones (Negative) Urine Occult Blood (Negative) Urine Nitrite (Negative) Urine Bilirubin (Negative) Urine Urobilinogen (0.2-1.0) Ur Leukocyte Esterase (Negative) Urine RBC (0-5) /hpf Urine WBC (0-5) /hpf Ur Squamous Epith Cells (0-5) /hpf Urine Bacteria (FEW) /hpf Urine Mucus (FEW) /hpf Ur Random Creatinine (30.0-125.0) mg/dL Ur Random Sodium (40-220) mEq/L SARS Virus RNA (PCR) (NEGATIVE) MRSA (PCR) Meds: Medications Discontinued Medications Generic Name Dose Route Start Last Admin Trade Name Freq PRN Reason Stop Dose Admin Acetaminophen 650 mg 01/17/20 12:40 01/20/20 05:49 Tylenol PO 650 mg Q4H PRN Administration Pain (Mild 1-3)/fever Acetaminophen/Codeine Phosphate 2 tab 01/17/20 00:51 01/20/20 11:29 Tylenol With Codeine No.3 300mg/30mg PO 2 tab Q6H PRN Administration Pain Allopurinol 100 mg 01/18/20 09:00 01/20/20 08:34 Zyloprim PO 100 mg DAILY KAREEM Administration Cyclobenzaprine HCl 10 mg 01/17/20 21:00 01/20/20 08:35 Flexeril PO 10 mg BID KAREEM Administration Dextrose/Water 50 ml 01/17/20 12:40 Dextrose 50% In Water IVPUSH ASDIRECTED PRN Hypoglycemia Famotidine 20 mg 01/17/20 21:00 01/20/20 08:36 Pepcid PO 20 mg BID KAREEM Administration Furosemide 40 mg 01/18/20 09:00 01/20/20 08:36 Lasix PO 40 mg DAILY KAREEM Administration Guaifenesin/Phenylephrine HCl 10 ml 01/19/20 19:53 01/19/20 20:58 Robitussin Dm PO 10 ml QID PRN Administration Cough Vancomycin HCl 2 gm/ Sodium 250 mls @ 250 mls/hr 01/16/20 19:08 01/16/20 20:27 Chloride IV 01/16/20 20:07 250 mls/hr ONETIME ONE Administration Cefazolin Sodium/Dextrose 2 gm 50 mls @ 100 mls/hr 01/16/20 21:54 01/16/20 23:10 / Premix IV 01/16/20 22:23 100 mls/hr ONETIME ONE Administration Cefazolin Sodium/Dextrose 2 gm 50 mls @ 100 mls/hr 01/17/20 06:00 01/20/20 05:48 / Premix IV 100 mls/hr Q8H KAREEM Administration Ferric Sodium Gluconate 120 mls @ 60 mls/hr 01/18/20 11:00 01/18/20 10:44 Complex 250 mg/ Sodium IV 01/18/20 12:59 60 mls/hr Chloride ONETIME ONE Administration Vancomycin HCl 2 gm/ Sodium 500 mls @ 250 mls/hr 01/18/20 10:30 01/18/20 14:54 Chloride IV Not Given Q12H KAREEM Vancomycin HCl 1 gm/ 500 mls @ 333 mls/hr 01/18/20 13:00 01/18/20 14:53 Vancomycin HCl 500 mg/ Sodium IV Not Given Chloride Q12H KAREEM Vancomycin HCl 1 gm/ 500 mls @ 333 mls/hr 01/18/20 13:00 01/19/20 01:19 Vancomycin HCl 500 mg/ Sodium IV 333 mls/hr Chloride Q12H KAREEM Administration Insulin Glargine 10 unit 01/17/20 21:00 01/19/20 21:41 Lantus SUBCUT 10 units BEDTIME KAREEM Administration Lamotrigine 25 mg 01/17/20 21:00 01/20/20 08:34 Lamotrigine PO 25 mg BID KAREEM Administration Lidocaine HCl 10 ml 01/18/20 13:01 01/18/20 13:25 Xylocaine 1% INJECT 01/18/20 13:02 10 ml ONETIME ONE Administration Magnesium Hydroxide 30 ml 01/19/20 06:00 Milk Of Magnesia PO 01/19/20 06:01 ONETIME ONE Melatonin 6 mg 01/17/20 20:24 01/19/20 21:00 Melatonin PO 6 mg BEDTIME PRN Administration Insomnia Metoprolol Succinate 50 mg 01/18/20 08:00 01/20/20 08:32 Toprol Xl PO 50 mg QAM KAREEM Administration Montelukast Sodium 10 mg 01/17/20 21:00 01/19/20 21:00 Singulair PO 10 mg BEDTIME KAREEM Administration Morphine Sulfate 2 mg 01/17/20 00:53 Morphine IVPUSH Q4H PRN Pain Morphine Sulfate 2 mg 01/17/20 12:53 Morphine IVPUSH Q4H PRN Pain (severe 7-10) Non-Formulary Medication 5 mg 01/17/20 19:48 Melatonin [Melatonin] PO BEDTIME PRN Insomnia Ondansetron HCl 4 mg 01/17/20 12:40 Zofran IV Q6H PRN Nausea/Vomiting Pimozide 2 Mg 0 each 01/17/20 21:00 01/20/20 08:39 PO Not Given BID KAREEM Quetiapine Fumarate 50 mg 01/18/20 21:00 01/19/20 21:00 Seroquel PO 50 mg BEDTIME KAREEM Administration Rivaroxaban 20 mg 01/18/20 17:00 01/19/20 17:19 Xarelto PO 20 mg WITHDINNER KAREEM Administration Senna 8.6 mg 01/17/20 21:00 01/19/20 21:00 Senna PO 8.6 mg BEDTIME KAREEM Administration Sertraline HCl 100 mg 01/18/20 09:00 01/20/20 08:33 Zoloft PO 100 mg DAILY KAREEM Administration Sodium Chloride 10 ml 01/16/20 19:05 01/16/20 20:28 Saline Flush FLUSH 10 ml ASDIRECTED PRN Administration Keep Vein Open Tamsulosin HCl 0.4 mg 01/17/20 21:00 01/19/20 21:00 Flomax PO 0.4 mg BEDTIME KAREEM Administration Thiamine HCl 100 mg 01/18/20 09:00 01/20/20 08:36 Vitamin B-1 PO 100 mg DAILY KAREEM Administration Vancomycin HCl 0 dose 01/18/20 10:00 Pharmacy To Dose - Vancomycin .XX ASDIRECTED PRN RX TO DOSE VANCOMYCIN Sepsis Event Note (ED) - Evaluation Sepsis Screening Result: No Definite Risk
[2020-01-16] MEDS ORDERED: Sodium Chloride 0.9% 10 ML Syringe FLUSH PRN (19:05)
[2020-01-16] MEDS: ceFAZolin 2 GM in Premix Bag 1 BAG IV ONE (23:10)
[2020-01-17] MEDS ORDERED: Morphine 2 MG/ML SYRINGE IVPUSH PRN ×2 (00:53→12:53)
[2020-01-17] MEDS: Acetaminophen/Codeine 300-30 MG Tab PO PRN ×2 (01:18→08:50)
[2020-01-17] MEDS: ceFAZolin 2 GM in Premix Bag 1 BAG IV SCH ×3 (06:29→21:24)
--- NOTE | 2020-01-17 07:09 | PCM.HP.2 ---
H&P History of Present Illness - General Date of Service: 01/17/20 Admit Problem/Dx: Admission Diagnosis/Problem Admission Diagnosis/Problem Cellulitis - History of Present Illness Initial Comments - Free Text/Narative: Patient is confused upon my evaluation but as per patient: This is a 64 year old male with extensive past medical history who comes to the ED after being told by [facility] nurse to come in for evaluation of rash on RLE and anterior LLE. About 1 week ago he started feeling like he stepped on a pebble on his right great toe, a couple of days later started noticing erythema on toe that spread to dorsum of foot He later started having purulent drainage on left barron in place where he had some carpet burn lesion from a couple of weeks ago He started complaining about symptoms to [facility] Once erythema spread more and pain got worse associated with fever for which [facility] nurse told him to come to the ED for further evaluation As per ED chart The patient presents by [facility] for shortness of breath, confusion and a fever. He is in the [facility] program. They have some concerns that he is not able to do well at home. He has redness and swelling to both legs and a low grade temp. He denies having a cough but he has low oxygen saturations. Denies chest pain. He does feel a little short of breath. He has no abdominal pain, nausea or vomiting. He is a little confused when I talk to him. Right Leg Pain Score (Numeric/FACES): 3 - Related Data Allergies/Adverse Reactions: Allergies Allergy/AdvReac Type Severity Reaction Status Date / Time No Known Allergies Allergy Verified 01/16/20 18:29 Home Medications: Home Meds allopurinoL [Zyloprim] 100 mg PO DAILY 09/16/13 [History] Rivaroxaban [Xarelto] 20 mg PO DAILY #30 tablet 07/21/15 [Rx] Cyclobenzaprine [Flexeril] 10 mg PO BID 12/18/16 [History] Ezetimibe 10 mg PO BEDTIME 02/18/18 [History] Calcium Carbonate/Vitamin D3 [Calcium 600 + Vit D 400 Softgl] 1 tab PO BID 02/12 12/30 [History] Melatonin 5 mg PO BEDTIME PRN 03/10/19 [History] Acetaminophen [Tylenol Arthritis Pain] 650 mg PO BID 01/17/20 [History] Famotidine 20 mg PO BID 01/17/20 [History] Furosemide 40 mg PO DAILY 01/17/20 [History] Metoprolol Succinate [Toprol XL 50mg] 50 mg PO QAM 01/17/20 [History] Montelukast [Singulair] 10 mg PO BEDTIME 01/17/20 [History] Multivitamin [Tab-A-Kira] 1 tab PO DAILY 01/17/20 [History] Non-Formulary Medication [NF Drug] 500 mg PO DAILY 01/17/20 [History] Pimozide 2 mg PO BID 01/17/20 [History] Sennosides [Senna] 8.6 mg PO BEDTIME 01/17/20 [History] Sertraline [Zoloft] 100 mg PO DAILY 01/17/20 [History] Tamsulosin [Flomax] 0.4 mg PO BEDTIME 01/17/20 [History] Thiamine HCl [Vitamin B-1] 100 mg PO DAILY 01/17/20 [History] Thiamine HCl [Vitamin B-1] 100 mg PO DAILY 01/17/20 [History] lamoTRIgine [Lamotrigine] 25 mg PO BID 01/17/20 [History] sitaGLIPtin Phosphate [Januvia] 50 mg PO DAILY 01/17/20 [History] Past Medical History HEENT History: Reports: Sinusitis, Other (See Below) Other HEENT History: sialodenitis, oral surgery, bilateral myopia Cardiovascular History: Reports: None, Afib, Blood Clots/VTE/DVT, CAD, Cardiomyopathy, Heart Failure, High Cholesterol, Hypertension, [place], PVD, Stents Other Cardiovascular History: occulusion and left carotid artery Respiratory History: Reports: COPD, Sleep Apnea Other Respiratory History: hypoxia Gastrointestinal History: Reports: GERD Genitourinary History: Reports: Acute Renal Failure, BPH, Chronic Renal Insuffiency 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: 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: 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 Musculoskeletal History: Reports: Back Pain, Chronic, Gout, Other (See Below) Other Musculoskeletal History: left back fusion Neurological History: Reports: CVA, Migraines Other Neuro History: spinal stenosis, cerviclagia, post-laminectomy syndrome Psychiatric History: Reports: Depression, Other (See Below) Other Psychiatric History: insomnia;mental and behavioral disorders, substance abuse history, opiod dependence, confusion, psychosis, somnolence, insomnia, chronic pain syndrome Endocrine/Metabolic History: Reports: Diabetes, Type II, Hypothyroidism, Obesity/BMI 30+ Hematologic History: Reports: Other (See Below) Other Hematologic History: hypokalemia, hypomagnesia Immunologic History: Reports: None Oncologic (Cancer) History: Reports: None Dermatologic History: Reports: Cellulitis Other Dermatologic History: ingrown toe nails, skin disorder - Infectious Disease History Infectious Disease History: Reports: Chicken Pox, Measles - Past Surgical History Head Surgeries/Procedures: Reports: None HEENT Surgical History: Reports: Naso-Sinus Surgery, Oral Surgery, Other (See Below) Other HEENT Surgeries/Procedures: oral infection Cardiovascular Surgical History: Reports: None Respiratory Surgical History: Reports: None GI Surgical History: Reports: Hernia Repair/Other Male Surgical History: Reports: None Endocrine Surgical History: Reports: None Neurological Surgical History: Reports: Laminectomy, Spinal Fusion Musculoskeletal Surgical History: Reports: Other (See Below) Other Musculoskeletal Surgeries/Procedures:: left shoulder surgery Oncologic Surgical History: Reports: None Dermatological Surgical History: Reports: None Social & Family History - Family History Family Medical History: Noncontributory HEENT: Reports: None Cardiac: Reports: OH, Stent, Other (See Below) Other Cardiac Family History: Unsure of exact family history GI: Reports: Cholelithiasis Musculoskeletal: Reports: Gout Neurological: Reports: Alzheimers Disease Endocrine/Metabolic: Reports: Diabetes, type II Oncologic: Reports: Colon - Tobacco Use Smoking Status *Q: Never Smoker Second Hand Smoke Exposure: No - Caffeine Use Caffeine Use: Reports: Soda Other Caffeine Use: 2 [address] Pepper per day. - Recreational Drug Use Recreational Drug Use: No - Living Situation & Occupation Living situation: Reports: Single Occupation: Disabled H&P Review of Systems - Review of Systems: Review Of Systems: See Below General: Reports: Fever, Chills, Malaise, Weakness, Fatigue. Denies: Night Sweats, Diaphoresis, Decreased Appetite, Weight Loss, Weight Gain HEENT: Denies: Post Nasal Drip, Sinus Congestion, Sore Throat, Vertigo, Visual Changes Pulmonary: Reports: Shortness of Breath. Denies: Wheezing, Pleuritic Chest Pain, Cough, Sputum, Hemoptysis Cardiovascular: Denies: Chest Pain, Palpitations, Dyspnea on Exertion, Orthopnea, PND, Edema, Lightheadedness, Syncope Gastrointestinal: Denies: Abdominal Pain, Anorexia, Black Stool, Bloody Stool, Constipation, Diarrhea, Decreased Appetite, Difficulty Swallowing, Distension, Flatus, Hematemesis, Hematochezia, Melena, Nausea, Stool Incontinence, Vomiting Genitourinary: Denies: Dysuria, Frequency, Burning, Pain, Urgency Musculoskeletal: Denies: Joint Pain, Joint Swelling, Muscle Pain, Muscle Stiffness Skin: Reports: Erythema, Wound. Denies: Cyanosis, Jaundice, Mottled, Pallor, Diaphoresis Psychiatric: Reports: Confusion, Mood Lability, Hallucinations. Denies: Depression, Anxiety Neurological: Denies: Dizziness, Headache, Numbness, Paresthesia Exam - Exam Exam: See Below - Vital Signs Vital Signs: Last Vital Signs Temp 98.4 F 01/17/20 03:47 Pulse 88 01/17/20 03:47 Resp 16 01/17/20 03:47 BP 135/63 01/17/20 03:47 Pulse Ox 94 L 01/17/20 03:47 Weight: 137.302 kg - Exam Quality Assessment: Other (Confounded by body habitus) General: Alert, Oriented, Cooperative, Moderate Distress, Other (overal discheveled appearance) HEENT: Conjunctiva Clear, EACs Clear Neck: Supple Lungs: Decreased Breath Sounds. No: Crackles, Rales, Rhonchi, Rub, Stridor, Wheezing Cardiovascular: Regular Rhythm. No: Systolic Murmur, Diastolic Murmur, Rubs, Gallop/S3, Gallop/S4 GI/Abdominal Exam: Distended. No: Guarding, Rigid, Rebound Extremities: Other (Lower extremities: Found to have 3+ pitting edema up to knees bilaterally. Right leg: Erythematous rash on dorsum of foot up to anterior barron. Crackling on skin at base of great toe plantar side. Left leg: with smaller erythematous rash with black eschar 1x1in. Apparent purulent drainage in upper region. Some open wounds, like bases of bullae as well) Peripheral Pulses: 2+: Radial (L), Radial (R), Dorsalis Pedis (L), Dorsalis Pedis (R) Skin: Warm, Dry Neuro Extensive - Mental Status: Alert - Patient Data Result Diagrams: 01/17/20 04:05 01/17/20 04:05 Sepsis Event Note - Evaluation Sepsis Screening Result: No Definite Risk - Problem List (1) Cellulitis SNOMED Code(s): 173404806 ICD Code: L03.90 - CELLULITIS, UNSPECIFIED Status: Acute Current Visit: Yes Qualifiers: Site of cellulitis: extremity Site of cellulitis of extremity: lower extremity Laterality: unspecified laterality Qualified Code(s): L03.119 - Cellulitis of unspecified part of limb (2) Acute kidney injury SNOMED Code(s): 16715111, 09788946 ICD Code: N17.9 - ACUTE KIDNEY FAILURE, UNSPECIFIED Status: Acute Current Visit: Yes (3) Normocytic hypochromic anemia SNOMED Code(s): 49834110 ICD Code: D50.9 - IRON DEFICIENCY ANEMIA, UNSPECIFIED Status: Acute Current Visit: Yes (4) Lymphopenia Status: Acute Current Visit: Yes (5) Atrial fibrillation with rapid ventricular response SNOMED Code(s): 525711866183836 ICD Code: I48.91 - UNSPECIFIED ATRIAL FIBRILLATION Status: Acute Current Visit: Yes (6) 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) SNOMED Code(s): 01047109633715832 ICD Code: I69.311 - MEMORY DEFICIT FOLLOWING CEREBRAL INFARCTION Status: Acute Current Visit: Yes (7) History of deep vein thrombosis SNOMED Code(s): 958612113 ICD Code: Z86.718 - PERSONAL HISTORY OF OTHER VENOUS THROMBOSIS AND EMBOLISM Status: Acute Current Visit: Yes (8) Coronary artery disease SNOMED Code(s): 82601448 ICD Code: I25.10 - ATHSCL HEART DISEASE OF [place] CORONARY ARTERY W/O ANG PCTRS Status: Acute Current Visit: Yes (9) Stented coronary artery Status: Acute Current Visit: Yes (10) Carotid occlusion, left SNOMED Code(s): 515665483531445 ICD Code: I65.22 - OCCLUSION AND STENOSIS OF LEFT CAROTID ARTERY Status: Acute Current Visit: Yes (11) Hypertension SNOMED Code(s): 11127390 ICD Code: I10 - ESSENTIAL (PRIMARY) HYPERTENSION Status: Acute Current Visit: Yes (12) COPD (chronic obstructive pulmonary disease) SNOMED Code(s): 68178417 ICD Code: J44.9 - CHRONIC OBSTRUCTIVE PULMONARY DISEASE, UNSPECIFIED Status: Acute Current Visit: Yes (13) Obstructive sleep apnea SNOMED Code(s): 21781595 ICD Code: G47.33 - OBSTRUCTIVE SLEEP APNEA (ADULT) (PEDIATRIC) Status: Acute Current Visit: Yes (14) Acute on chronic respiratory failure with hypoxemia SNOMED Code(s): 56271749638698423 ICD Code: J96.21 - ACUTE AND CHRONIC RESPIRATORY FAILURE WITH HYPOXIA Status: Acute Current Visit: Yes (15) Diabetes mellitus SNOMED Code(s): 00437098 ICD Code: E11.9 - TYPE 2 DIABETES MELLITUS WITHOUT COMPLICATIONS Status: Acute Current Visit: Yes (16) Poor short term memory SNOMED Code(s): 534385774 ICD Code: R41.3 - OTHER AMNESIA Status: Acute Current Visit: Yes (17) Visual hallucination SNOMED Code(s): 69258192 ICD Code: R44.1 - VISUAL HALLUCINATIONS Status: Acute Current Visit: Yes (18) Metabolic alkalosis with respiratory acidosis SNOMED Code(s): 864150881 ICD Code: E87.4 - MIXED DISORDER OF ACID-BASE BALANCE Status: Acute Current Visit: Yes (19) Tachycardia SNOMED Code(s): 9383360 ICD Code: R00.0 - TACHYCARDIA, UNSPECIFIED Status: Acute Current Visit: Yes (20) Altered mental status SNOMED Code(s): 965761747 ICD Code: R41.82 - ALTERED MENTAL STATUS, UNSPECIFIED Status: Acute Current Visit: No Qualifiers: Altered mental status type: somnolence Qualified Code(s): R40.0 - Somnolence (21) Carotid artery stenosis Status: Acute Priority: High Current Visit: No Qualifiers: Laterality: left Qualified Code(s): I65.22 - Occlusion and stenosis of left carotid artery (22) Contusion of foot SNOMED Code(s): 66298782 ICD Code: S90.30XA - CONTUSION OF UNSPECIFIED FOOT, INITIAL ENCOUNTER Status: Acute Current Visit: No (23) HLD (hyperlipidemia) SNOMED Code(s): 97867705 ICD Code: E78.5 - HYPERLIPIDEMIA, UNSPECIFIED Status: Acute Priority: Medium Current Visit: No Qualifiers: Hyperlipidemia type: unspecified Qualified Code(s): E78.5 - Hyperlipidemia, unspecified (24) CKD (chronic kidney disease) SNOMED Code(s): 681067880 ICD Code: N18.9 - CHRONIC KIDNEY DISEASE, UNSPECIFIED Status: Chronic Priority: Medium Current Visit: No Qualifiers: Chronic kidney disease stage: unspecified stage Qualified Code(s): N18.9 - Chronic kidney disease, unspecified (25) Hypokalemia SNOMED Code(s): 77235575 ICD Code: E87.6 - HYPOKALEMIA Status: Chronic Priority: Low Current Visit: No Onset Date: 07/17/15 Problem Details: - Was on lasix - Has had nausea but w/o vomiting - Replete and monitor (26) Hypothyroidism SNOMED Code(s): 72066243 ICD Code: E03.9 - HYPOTHYROIDISM, UNSPECIFIED Status: Chronic Priority: Low Current Visit: No Qualifiers: Hypothyroidism type: unspecified Qualified Code(s): E03.9 - Hypothyroidism, unspecified (27) Migraines SNOMED Code(s): 70758573 ICD Code: G43.909 - MIGRAINE, UNSP, NOT INTRACTABLE, WITHOUT STATUS MIGRAINOSUS Status: Chronic Priority: Low Current Visit: No Qualifiers: Migraine type: unspecified Status migrainosus presence: without status migrainosus (28) Morbid obesity SNOMED Code(s): 599167643 ICD Code: E66.01 - MORBID (SEVERE) OBESITY DUE TO EXCESS CALORIES Status: Chronic Priority: Medium Current Visit: No (29) Benign prostatic hyperplasia SNOMED Code(s): 058723737 ICD Code: N40.0 - BENIGN PROSTATIC HYPERPLASIA WITHOUT LOWER URINRY TRACT SYMP Status: Acute Current Visit: Yes (30) GERD (gastroesophageal reflux disease) SNOMED Code(s): 612823710 ICD Code: K21.9 - GASTRO-ESOPHAGEAL REFLUX DISEASE WITHOUT ESOPHAGITIS Status: Chronic Priority: Low Current Visit: No Qualifiers: Esophagitis presence: esophagitis presence not specified Qualified Code(s): K21.9 - Gastro-esophageal reflux disease without esophagitis (31) Chronic back pain SNOMED Code(s): 338759856 ICD Code: M54.9 - DORSALGIA, UNSPECIFIED; G89.29 - OTHER CHRONIC PAIN Status: Acute Current Visit: Yes (32) Chronic migraine SNOMED Code(s): 431166769 ICD Code: G43.709 - CHRONIC MIGRAINE W/O AURA, NOT INTRACTABLE, W/O STAT MIGR Status: Acute Current Visit: Yes Problem List Initiated/Reviewed/Updated: Yes Assessment/Plan Comment:: ASSESSMENT Brought in via EMS for shortness of breath, altered mental status and fever Part of [facility] program raise concerns about patient independence Noted confused and to have erythema and edema of bilateral lower extremities Reports mild shortness of breath Denied cough, chest pain, abdominal pain, nausea or vomiting Does not meet criteria for sepsis On physical exam Vital signs on admission - BP 145/74 (94); HR 109x'; T 99.2; SatO2 88% on RA - Placed on 2.5L NC which improved O2 to 94% Admission lab results - CBC: WBC 19.9 (N 85.8%), Hb 11.4, Hct 39.9, Plt 343 - Chemistry: Na 138, K 3.7, Cl 99, CO2 34, BUN 23, Cr 1.4, GFR 51, Glu 161, Ca 8.9 - LFTs within normal limits - Total protein 7.2, albumin 3.3 - ABGs on 32%: 7.42/51.8/89/32.9/98.1 - DD, troponin, lactic acid and BNP negative - Inflammation: CRP 9, LDH 185 - COVID negative - MRSA negative DVT ruled out with a negative D-dimer By vancomycin initiated to cover MRSA, however MRSA PCR is negative During my interrogation patient commented about having "little children my house that behave like aliens", stating these people are being boarded at his house -These sound like hallucinations, will attempt to confirm living situation with [facility] BL LE cellulitis Contusion of foot Multiple open wounds in BL LE Chronic dependent edema - Continue home furosemide - Continue Ancef - Discontinue vancomycin - Procalcitonin every 48h Diabetes mellitus, unknown HbA1c - Hold home sitagliptin - Accuchecks before meals and 2 hours after - Hypoglycemia protocol - Levemir 10 units at bedtime for now Hypertension - Continue home metoprolol - PRN Hydralazine Acute on chronic kidney disease Metabolic alkalosis Chronic hypokalemia Normocytic hypochromic anemia - Monitor urine output - Renally dosed medications - Repeat labs as needed Atrial fibrillation with rapid ventricular response History of deep vein thrombosis - Continue home rivaroxaban and metoprolol Coronary artery disease s/p stent x1 Left carotid artery stenosis 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 Dyslipidemia - Request prior echocardiogram - Continue home ezetimibe Altered mental status H/O psychosis Visual hallucinations - Continue home Lamotrigine, Sertraline and Pimozide Chronic obstructive pulmonary disease Obstructive sleep apnea Acute on chronic respiratory failure with hypoxemia Respiratory acidosis - Continue montelukast - PRN DuoNebs - Goal O2 > 88% - RT assess and treat Chronic back pain - Continue home Flexeril and Tylenol Chronic gout - Continue home allopurinol - Uric acid level Hypothyroidism - Continue home levothyroxine Chronic migraines - Continue home lamotrigine Morbid obesity - Dietary consult and follow up GERD - Continue home Famotidine Benign prostate hyperplasia - Continue home Tamsulosin PROPHYLAXIS DVT- continue home Xarelto GI- continue home Famotidine CODE STATUS: FULL CODE DISPOSITION: Patient will be admitted to the med surge unit for IV antibiotics and O2 sup plementation. - Mortality Measure Prognosis:: Poor
[2020-01-17] MEDS ORDERED: Acetaminophen 325 MG Tab PO PRN (12:40)
[2020-01-17] MEDS ORDERED: 50% Dextrose in Water 50 ML Syringe IVPUSH PRN (12:40)
[2020-01-17] MEDS ORDERED: Ondansetron 4 MG/2 ML SDV IV PRN (12:40)
[2020-01-17 15:04] LABS: HEMOGLOBIN A1C 7.5 % (4.50-6.20)
[2020-01-17] MEDS ORDERED: Non-Formulary Medication 1 Each (Melatonin [Melatonin] 5 MG) PO PRN (19:48)
[2020-01-17] MEDS: Insulin Glarg,Human.Rec.Analog 100 Unit/ML SUBCUT SCH (21:22)
[2020-01-17] MEDS: Melatonin 3 MG Tab PO PRN (21:27)
[2020-01-18] MEDS: Tamsulosin 0.4 MG Cap.ER PO SCH ×2 (00:45→21:08)
[2020-01-18] MEDS: Famotidine 20 MG Tab PO SCH ×3 (00:45→21:09)
[2020-01-18] MEDS: Cyclobenzaprine 10 MG Tab PO SCH ×3 (00:45→21:08)
[2020-01-18] MEDS: Montelukast 10 MG Tab PO SCH ×2 (00:46→21:09)
[2020-01-18] MEDS: Sennosides 8.6 MG Tab PO SCH ×2 (00:46→21:09)
[2020-01-18] MEDS: Acetaminophen/Codeine 300-30 MG Tab PO PRN ×2 (01:05→07:00)
[2020-01-18] MEDS: ceFAZolin 2 GM in Premix Bag 1 BAG IV SCH ×3 (06:58→21:09)
[2020-01-18] MEDS: Furosemide 40 MG Tab PO SCH (08:07)
[2020-01-18] MEDS: Sertraline 50 MG Tab PO SCH (08:07)
[2020-01-18] MEDS: Allopurinol 100 MG Tab PO SCH (08:08)
[2020-01-18] MEDS: Thiamine 100 MG Tab PO SCH (08:08)
[2020-01-18] MEDS: Metoprolol Succinate 50 MG Tab.ER PO SCH (08:08)
[2020-01-18] MEDS ORDERED: Vancomycin 2 GM in Sodium Chloride 0.9% 500 ML IV SCH (10:30)
--- NOTE | 2020-01-18 11:04 | PCM.PN ---
- General Info Date of Service: 01/18/20 Admission Dx/Problem (Free Text): Admission Diagnosis/Problem Admission Diagnosis/Problem Cellulitis Subjective Update: Gordon states that his right lower extremity is a little less painful, but otherwise no significant change. No fever overnight. Appetite is good. Gram- positive cocci from wound culture likely staph. Functional Status: Reports: Pain Controlled - Review of Systems General: Reports: No Symptoms HEENT: Reports: No Symptoms Pulmonary: Reports: No Symptoms Cardiovascular: Reports: No Symptoms Gastrointestinal: Reports: No Symptoms Skin: Reports: Other (Erythema lower extremities) - Patient Data Vitals - Most Recent: Last Vital Signs Temp 98.4 F 01/18/20 07:47 Pulse 99 01/18/20 08:08 Resp 20 01/18/20 07:47 BP 131/62 01/18/20 08:08 Pulse Ox 89 L 01/18/20 07:47 Weight - Most Recent: 136.259 kg I&O - Last 24 Hours: Intake & Output 01/17/20 01/18/20 01/18/20 22:59 06:59 14:59 Intake Total 300 550 Output Total 700 1150 Balance -400 -600 Lab Results Last 24 Hours: Laboratory Results - last 24 hr 01/17/20 01/17/20 01/17/20 Range/Units 14:20 14:20 14:20 WBC (4.23-9.07) K/mm3 RBC (4.63-6.08) M/mm3 Hgb (13.7-17.5) gm/dl Hct (40.1-51.0) % MCV (79.0-92.2) fl MCH (25.7-32.2) pg MCHC (32.2-35.5) g/dl RDW Std Deviation (35.1-43.9) fL Plt Count (163-337) K/mm3 MPV (9.4-12.3) fl Neut % (Auto) (34.0-67.9) % Lymph % (Auto) (21.8-53.1) % [place] % (Auto) (5.3-12.2) % Eos % (Auto) (0.8-7.0) Baso % (Auto) (0.1-1.2) % Neut # (Auto) (1.78-5.38) K/mm3 Lymph # (Auto) (1.32-3.57) K/mm3 [place] # (Auto) (0.30-0.82) K/mm3 Eos # (Auto) (0.04-0.54) K/mm3 Baso # (Auto) (0.01-0.08) K/mm3 Manual Slide Review ESR (0-15) mm/hr Percent Retic 1.57 (0.51-1.81) % Sodium (136-145) mEq/L Potassium (3.5-5.1) mEq/L Chloride (98-107) mEq/L Carbon Dioxide (21-32) mEq/L Anion Gap (5-15) BUN (7-18) mg/dL Creatinine (0.7-1.3) mg/dL Est Cr Clr Drug Dosing mL/min Estimated GFR (MDRD) (>60) mL/min BUN/Creatinine Ratio (14-18) Glucose (80-115) mg/dL POC Glucose (80-115) mg/dL Hemoglobin A1c 7.50 H (4.50-6.20) % Calcium (8.5-10.1) mg/dL Phosphorus (2.6-4.7) mg/dL Magnesium (1.8-2.4) mg/dl Iron (65-175) ug/dL TIBC (100-400) ug/dL % Saturation (20-55) % Transferrin (202-364) mg/dL Prealbumin (17.0-34.0) mg/dL Vitamin B12 (193-986) pg/ml Vitamin D 25-Hydroxy (30.0-100.0) ng/ml Folate (8.6-58.9) ng/mL Procalcitonin 0.75 H (<0.10) ng/mL 01/17/20 01/17/20 01/17/20 Range/Units 14:20 14:20 14:20 WBC (4.23-9.07) K/mm3 RBC (4.63-6.08) M/mm3 Hgb (13.7-17.5) gm/dl Hct (40.1-51.0) % MCV (79.0-92.2) fl MCH (25.7-32.2) pg MCHC (32.2-35.5) g/dl RDW Std Deviation (35.1-43.9) fL Plt Count (163-337) K/mm3 MPV (9.4-12.3) fl Neut % (Auto) (34.0-67.9) % Lymph % (Auto) (21.8-53.1) % [place] % (Auto) (5.3-12.2) % Eos % (Auto) (0.8-7.0) Baso % (Auto) (0.1-1.2) % Neut # (Auto) (1.78-5.38) K/mm3 Lymph # (Auto) (1.32-3.57) K/mm3 [place] # (Auto) (0.30-0.82) K/mm3 Eos # (Auto) (0.04-0.54) K/mm3 Baso # (Auto) (0.01-0.08) K/mm3 Manual Slide Review ESR (0-15) mm/hr Percent Retic (0.51-1.81) % Sodium (136-145) mEq/L Potassium (3.5-5.1) mEq/L Chloride (98-107) mEq/L Carbon Dioxide (21-32) mEq/L Anion Gap (5-15) BUN (7-18) mg/dL Creatinine (0.7-1.3) mg/dL Est Cr Clr Drug Dosing mL/min Estimated GFR (MDRD) (>60) mL/min BUN/Creatinine Ratio (14-18) Glucose (80-115) mg/dL POC Glucose (80-115) mg/dL Hemoglobin A1c (4.50-6.20) % Calcium (8.5-10.1) mg/dL Phosphorus (2.6-4.7) mg/dL Magnesium (1.8-2.4) mg/dl Iron 15 L (65-175) ug/dL TIBC 523 H (100-400) ug/dL % Saturation 3 L (20-55) % Transferrin 418 H (202-364) mg/dL Prealbumin 19.3 (17.0-34.0) mg/dL Vitamin B12 506 (193-986) pg/ml Vitamin D 25-Hydroxy 38.1 (30.0-100.0) ng/ml Folate 28.3 (8.6-58.9) ng/mL Procalcitonin (<0.10) ng/mL 01/17/20 01/17/20 01/18/20 Range/Units 16:47 21:23 06:06 WBC 18.37 H (4.23-9.07) K/mm3 RBC 4.84 (4.63-6.08) M/mm3 Hgb 11.3 L (13.7-17.5) gm/dl Hct 40.0 L (40.1-51.0) % MCV 82.6 (79.0-92.2) fl MCH 23.3 L (25.7-32.2) pg MCHC 28.3 L (32.2-35.5) g/dl RDW Std Deviation 53.9 H (35.1-43.9) fL Plt Count 319 (163-337) K/mm3 MPV 10.7 (9.4-12.3) fl Neut % (Auto) 81.3 H (34.0-67.9) % Lymph % (Auto) 7.7 L (21.8-53.1) % [place] % (Auto) 9.6 (5.3-12.2) % Eos % (Auto) 0.8 (0.8-7.0) Baso % (Auto) 0.3 (0.1-1.2) % Neut # (Auto) 14.94 H (1.78-5.38) K/mm3 Lymph # (Auto) 1.41 (1.32-3.57) K/mm3 [place] # (Auto) 1.76 H (0.30-0.82) K/mm3 Eos # (Auto) 0.14 (0.04-0.54) K/mm3 Baso # (Auto) 0.06 (0.01-0.08) K/mm3 Manual Slide Review Abnormal smear ESR (0-15) mm/hr Percent Retic (0.51-1.81) % Sodium (136-145) mEq/L Potassium (3.5-5.1) mEq/L Chloride (98-107) mEq/L Carbon Dioxide (21-32) mEq/L Anion Gap (5-15) BUN (7-18) mg/dL Creatinine (0.7-1.3) mg/dL Est Cr Clr Drug Dosing mL/min Estimated GFR (MDRD) (>60) mL/min BUN/Creatinine Ratio (14-18) Glucose (80-115) mg/dL POC Glucose 162 H 200 H (80-115) mg/dL Hemoglobin A1c (4.50-6.20) % Calcium (8.5-10.1) mg/dL Phosphorus (2.6-4.7) mg/dL Magnesium (1.8-2.4) mg/dl Iron (65-175) ug/dL TIBC (100-400) ug/dL % Saturation (20-55) % Transferrin (202-364) mg/dL Prealbumin (17.0-34.0) mg/dL Vitamin B12 (193-986) pg/ml Vitamin D 25-Hydroxy (30.0-100.0) ng/ml Folate (8.6-58.9) ng/mL Procalcitonin (<0.10) ng/mL 01/18/20 01/18/20 01/18/20 Range/Units 06:06 06:06 07:04 WBC (4.23-9.07) K/mm3 RBC (4.63-6.08) M/mm3 Hgb (13.7-17.5) gm/dl Hct (40.1-51.0) % MCV (79.0-92.2) fl MCH (25.7-32.2) pg MCHC (32.2-35.5) g/dl RDW Std Deviation (35.1-43.9) fL Plt Count (163-337) K/mm3 MPV (9.4-12.3) fl Neut % (Auto) (34.0-67.9) % Lymph % (Auto) (21.8-53.1) % [place] % (Auto) (5.3-12.2) % Eos % (Auto) (0.8-7.0) Baso % (Auto) (0.1-1.2) % Neut # (Auto) (1.78-5.38) K/mm3 Lymph # (Auto) (1.32-3.57) K/mm3 [place] # (Auto) (0.30-0.82) K/mm3 Eos # (Auto) (0.04-0.54) K/mm3 Baso # (Auto) (0.01-0.08) K/mm3 Manual Slide Review ESR 50 H (0-15) mm/hr Percent Retic (0.51-1.81) % Sodium 137 (136-145) mEq/L Potassium 4.2 (3.5-5.1) mEq/L Chloride 99 (98-107) mEq/L Carbon Dioxide 33 H (21-32) mEq/L Anion Gap 9.2 (5-15) BUN 20 H (7-18) mg/dL Creatinine 1.2 (0.7-1.3) mg/dL Est Cr Clr Drug Dosing 68.26 mL/min Estimated GFR (MDRD) > 60 (>60) mL/min BUN/Creatinine Ratio 16.7 (14-18) Glucose 149 H (80-115) mg/dL POC Glucose 149 H (80-115) mg/dL Hemoglobin A1c (4.50-6.20) % Calcium 9.7 (8.5-10.1) mg/dL Phosphorus 3.3 (2.6-4.7) mg/dL Magnesium 2.2 (1.8-2.4) mg/dl Iron (65-175) ug/dL TIBC (100-400) ug/dL % Saturation (20-55) % Transferrin (202-364) mg/dL Prealbumin (17.0-34.0) mg/dL Vitamin B12 (193-986) pg/ml Vitamin D 25-Hydroxy (30.0-100.0) ng/ml Folate (8.6-58.9) ng/mL Procalcitonin (<0.10) ng/mL 01/18/20 01/18/20 Range/Units 07:52 09:40 WBC (4.23-9.07) K/mm3 RBC (4.63-6.08) M/mm3 Hgb (13.7-17.5) gm/dl Hct (40.1-51.0) % MCV (79.0-92.2) fl MCH (25.7-32.2) pg MCHC (32.2-35.5) g/dl RDW Std Deviation (35.1-43.9) fL Plt Count (163-337) K/mm3 MPV (9.4-12.3) fl Neut % (Auto) (34.0-67.9) % Lymph % (Auto) (21.8-53.1) % [place] % (Auto) (5.3-12.2) % Eos % (Auto) (0.8-7.0) Baso % (Auto) (0.1-1.2) % Neut # (Auto) (1.78-5.38) K/mm3 Lymph # (Auto) (1.32-3.57) K/mm3 [place] # (Auto) (0.30-0.82) K/mm3 Eos # (Auto) (0.04-0.54) K/mm3 Baso # (Auto) (0.01-0.08) K/mm3 Manual Slide Review ESR (0-15) mm/hr Percent Retic (0.51-1.81) % Sodium (136-145) mEq/L Potassium (3.5-5.1) mEq/L Chloride (98-107) mEq/L Carbon Dioxide (21-32) mEq/L Anion Gap (5-15) BUN (7-18) mg/dL Creatinine (0.7-1.3) mg/dL Est Cr Clr Drug Dosing mL/min Estimated GFR (MDRD) (>60) mL/min BUN/Creatinine Ratio (14-18) Glucose (80-115) mg/dL POC Glucose 156 H 198 H (80-115) mg/dL Hemoglobin A1c (4.50-6.20) % Calcium (8.5-10.1) mg/dL Phosphorus (2.6-4.7) mg/dL Magnesium (1.8-2.4) mg/dl Iron (65-175) ug/dL TIBC (100-400) ug/dL % Saturation (20-55) % Transferrin (202-364) mg/dL Prealbumin (17.0-34.0) mg/dL Vitamin B12 (193-986) pg/ml Vitamin D 25-Hydroxy (30.0-100.0) ng/ml Folate (8.6-58.9) ng/mL Procalcitonin (<0.10) ng/mL Clarke Results Last 24 Hours: Microbiology 01/17/20 09:15 Wound Culture - Preliminary Leg, Left Gram Positive Cocci 01/16/20 19:50 Aerobic Blood Culture - Preliminary Blood - Venous - Lab Draw NO GROWTH AFTER 1 DAY Anaerobic Blood Culture - Preliminary NO GROWTH AFTER 1 DAY 09/04/20 19:45 Aerobic Blood Culture - Preliminary Blood - Venous NO GROWTH AFTER 1 DAY Anaerobic Blood Culture - Preliminary NO GROWTH AFTER 1 DAY Med Orders - Current: Current Medications Acetaminophen (Tylenol) 650 mg PO Q4H PRN PRN Reason: Pain (Mild 1-3)/fever Acetaminophen/Codeine Phosphate (Tylenol With Codeine No.3 300mg/30mg) 2 tab PO Q6H PRN PRN Reason: Pain Last Admin: 01/18/20 07:00 Dose: 2 tab Documented by: Allopurinol (Zyloprim) 100 mg PO DAILY [facility] Last Admin: 01/18/20 08:08 Dose: 100 mg Documented by: Cyclobenzaprine HCl (Flexeril) 10 mg PO BID [facility] Last Admin: 01/18/20 08:07 Dose: 10 mg Documented by: Dextrose/Water (Dextrose 50% In Water) 50 ml IVPUSH ASDIRECTED PRN PRN Reason: Hypoglycemia Famotidine (Pepcid) 20 mg PO BID [facility] Last Admin: 01/18/20 08:06 Dose: 20 mg Documented by: Furosemide (Lasix) 40 mg PO DAILY [facility] Last Admin: 01/18/20 08:07 Dose: 40 mg Documented by: Cefazolin Sodium/Dextrose 2 gm (/ Premix) 50 mls @ 100 mls/hr IV Q8H [facility] Last Admin: 01/18/20 06:58 Dose: 100 mls/hr Documented by: Ferric Sodium Gluconate Complex 250 mg/ Sodium Chloride 120 mls @ 60 mls/hr IV ONETIME ONE Stop: 01/18/20 12:59 Last Admin: 01/18/20 10:44 Dose: 60 mls/hr Documented by: Vancomycin HCl 1 gm/Vancomycin HCl 500 mg/ Sodium Chloride 500 mls @ 333 mls/hr IV Q12H [facility] Insulin Glargine (Lantus) 10 unit SUBCUT BEDTIME [facility] Last Admin: 01/17/20 21:22 Dose: 10 units Documented by: Lamotrigine (Lamotrigine) 25 mg PO BID [facility] Last Admin: 01/18/20 08:08 Dose: 25 mg Documented by: Melatonin (Melatonin) 6 mg PO BEDTIME PRN PRN Reason: Insomnia Last Admin: 01/17/20 21:27 Dose: 6 mg Documented by: Metoprolol Succinate (Toprol Xl) 50 mg PO QAM [facility] Last Admin: 01/18/20 08:08 Dose: 50 mg Documented by: Montelukast Sodium (Singulair) 10 mg PO BEDTIME [facility] Last Admin: 01/18/20 00:46 Dose: Not Given Documented by: Morphine Sulfate (Morphine) 2 mg IVPUSH Q4H PRN PRN Reason: Pain (severe 7-10) Non-Formulary Medication (Pimozide [Pimozide]) 2 mg PO BID [facility] Ondansetron HCl (Zofran) 4 mg IV Q6H PRN PRN Reason: Nausea/Vomiting Rivarox[facility] ([facility]) [facility] Senna (Senna) 8.6 mg PO BEDTIME [facility] Last Admin: 01/18/20 00:46 Dose: Not Given Documented by: Sertraline HCl (Zoloft) 100 mg PO DAILY [facility] Last Admin: 01/18/20 08:07 Dose: 100 mg Documented by: Sodium Chloride (Saline Flush) 10 ml FLUSH ASDIRECTED PRN PRN Reason: Keep Vein Open Last Admin: 01/16/20 20:28 Dose: 10 ml Documented by: Tamsulosin HCl (Flomax) 0.4 mg PO BEDTIME [facility] Last Admin: 01/18/20 00:45 Dose: Not Given Documented by: Thiamine HCl (Vitamin B-1) 100 mg PO DAILY [facility] Last Admin: 01/18/20 08:08 Dose: 100 mg Documented by: Vancomycin HCl (Pharmacy To Dose - Vancomycin) 0 dose .XX ASDIRECTED PRN PRN Reason: RX TO DOSE VANCOMYCIN Discontinued Medications Vancomycin HCl 2 gm/ Sodium (Chloride) 250 mls @ 250 mls/hr IV ONETIME ONE Stop: 01/16/20 20:07 Last Admin: 01/16/20 20:27 Dose: 250 mls/hr Documented by: Cefazolin Sodium/Dextrose 2 gm (/ Premix) 50 mls @ 100 mls/hr IV ONETIME ONE Stop: 01/16/20 22:23 Last Admin: 01/16/20 23:10 Dose: 100 mls/hr Documented by: Vancomycin HCl 2 gm/ Sodium (Chloride) 500 mls @ 250 mls/hr IV Q12H [facility] Morphine Sulfate (Morphine) 2 mg IVPUSH Q4H PRN PRN Reason: Pain Non-Formulary Medication (Melatonin [Melatonin]) 5 mg PO BEDTIME PRN PRN Reason: Insomnia - Exam General: Alert, Oriented HEENT: Pupils Equal, Mucous Membr. Moist/Ski Gap Neck: Supple Lungs: Clear to Auscultation, Normal Respiratory Effort Cardiovascular: Regular Rate, Regular Rhythm GI/Abdominal Exam: Normal Bowel Sounds, Soft, Non-Tender, No Distention Extremities: Pedal Edema (3+), Redness (Bilateral anterior lower extremities), Other (Eschar left anterior barron. Another open wound on the same barron just distally. Right great toe red with thick callus and some fluctuance. ) Skin: Warm Neurological: No New Focal Deficit Psy/Mental Status: Alert, Normal Affect, Normal Mood Sepsis Event Note - Evaluation Sepsis Screening Result: No Definite Risk - Focused Exam Vital Signs: Vital Signs Temp Pulse Resp BP Pulse Ox 01/18/20 08:08 99 131/62 01/18/20 07:47 98.4 F 99 20 131/62 89 L 01/18/20 05:41 105 H 125/89 94 L 01/18/20 05:40 98.2 F 105 H 18 92 L 01/18/20 01:09 97.9 F 105 H 16 140/79 95 - Problem List & Annotations (1) Cellulitis SNOMED Code(s): 714056048 Code(s): L03.90 - CELLULITIS, UNSPECIFIED Status: Acute Current Visit: Yes Qualifiers: Site of cellulitis: extremity Site of cellulitis of extremity: lower extremity Laterality: unspecified laterality Qualified Code(s): L03.119 - Cellulitis of unspecified part of limb (2) Chronic back pain SNOMED Code(s): 059852833 Code(s): M54.9 - DORSALGIA, UNSPECIFIED; G89.29 - OTHER CHRONIC PAIN Status: Acute Current Visit: Yes (3) Diabetes mellitus SNOMED Code(s): 39023800 Code(s): E11.9 - TYPE 2 DIABETES MELLITUS WITHOUT COMPLICATIONS Status: Acute Current Visit: Yes (4) Visual hallucination SNOMED Code(s): 03940728 Code(s): R44.1 - VISUAL HALLUCINATIONS Status: Acute Current Visit: Yes (5) COPD (chronic obstructive pulmonary disease) SNOMED Code(s): 29065831 Code(s): J44.9 - CHRONIC OBSTRUCTIVE PULMONARY DISEASE, UNSPECIFIED Status: Acute Current Visit: Yes (6) Hypertension SNOMED Code(s): 13363088 Code(s): I10 - ESSENTIAL (PRIMARY) HYPERTENSION Status: Acute Current Visit: Yes (7) 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) SNOMED Code(s): 88705122829455823 Code(s): I69.311 - MEMORY DEFICIT FOLLOWING CEREBRAL INFARCTION Status: Acute Current Visit: Yes - Problem List Review Problem List Initiated/Reviewed/Updated: Yes - My Orders Last 24 Hours: My Active Orders 01/18/20 09:59 OCCULT BLOOD SCREEN [OP] Routine 01/18/20 10:00 Pharmacy to Dose - Vancomycin 0 dose .XX ASDIRECTED PRN 01/18/20 10:34 Blood Glucose Check, Bedside [RC] QIDACANDBED 01/18/20 11:00 Sodium Ferric Gluconat/Sucrose [Sodium Ferric Gluc Cplx 62.5 MG/5 ML] 250 mg Sodium Chloride 0.9% [Normal Saline] 100 ml IV ONETIME - Plan Plan:: ASSESSMENT 01/17/2020 Brought in via EMS for shortness of breath, altered mental status and fever Part of [facility] program raise concerns about patient independence Noted confused and to have erythema and edema of bilateral lower extremities Reports mild shortness of breath Denied cough, chest pain, abdominal pain, nausea or vomiting Does not meet criteria for sepsis On physical exam Vital signs on admission - BP 145/74 (94); HR 109x'; T 99.2; SatO2 88% on RA - Placed on 2.5L NC which improved O2 to 94% Admission lab results - CBC: WBC 19.9 (N 85.8%), Hb 11.4, Hct 39.9, Plt 343 - Chemistry: Na 138, K 3.7, Cl 99, CO2 34, BUN 23, Cr 1.4, GFR 51, Glu 161, Ca 8.9 - LFTs within normal limits - Total protein 7.2, albumin 3.3 - ABGs on 32%: 7.42/51.8/89/32.9/98.1 - DD, troponin, lactic acid and BNP negative - Inflammation: CRP 9, LDH 185 - COVID negative - MRSA negative DVT ruled out with a negative D-dimer By vancomycin initiated to cover MRSA, however MRSA PCR is negative During my interrogation patient commented about having "little children my house that behave like aliens", stating these people are being boarded at his house -These sound like hallucinations, will attempt to confirm living situation with [facility] 01/18/2020 Vital signs stable. Afebrile. Pulse ox in the low 90s off room air. Staph likely growing out of wound culture, therefore its restart vancomycin. Dr. Magana in psychiatry saw him via telemedicine and recommendations given to the nursing. Recommend starting Seroquel. Cellulitis improving. Right great toe possible abscess. Consult surgery. PLAN BL LE cellulitis Contusion of foot Multiple open wounds in BL LE Chronic dependent edema - Continue home furosemide - Continue Ancef -Restart vancomycin - Procalcitonin every 48h -Consult surgery Diabetes mellitus, unknown HbA1c - Hold home sitagliptin - Accuchecks before meals and at bedtime - Hypoglycemia protocol - Levemir 10 units at bedtime for now -Start sliding scale insulin Hypertension - Continue home metoprolol - PRN Hydralazine Acute on chronic kidney disease -resolved Metabolic alkalosis Chronic hypokalemia Normocytic hypochromic anemia - Monitor urine output - Renally dosed medications - Repeat labs as needed Atrial fibrillation with rapid ventricular response History of deep vein thrombosis - Continue home rivaroxaban and metoprolol Coronary artery disease s/p stent x1 Left carotid artery stenosis 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 Dyslipidemia - Request prior echocardiogram - Continue home ezetimibe Altered mental status H/O psychosis Visual hallucinations - Continue home Lamotrigine, Sertraline and Pimozide Chronic obstructive pulmonary disease Obstructive sleep apnea Acute on chronic respiratory failure with hypoxemia Respiratory acidosis - Continue montelukast - PRN DuoNebs - Goal O2 > 88% - RT assess and treat Chronic back pain - Continue home Flexeril and Tylenol Chronic gout - Continue home allopurinol - Uric acid level Hypothyroidism - Continue home levothyroxine Chronic migraines - Continue home lamotrigine Morbid obesity - Dietary consult and follow up GERD - Continue home Famotidine Benign prostate hyperplasia - Continue home Tamsulosin PROPHYLAXIS DVT- continue home Xarelto GI- continue home Famotidine CODE STATUS: FULL CODE DISPOSITION: Patient will be admitted to the med surge unit for IV antibiotics and O2 supplementation.
[2020-01-18] MEDS ORDERED: Vancomycin 1 GM, Vancomycin 500 MG in Sodium Chloride 0.9% 500 ML IV SCH ×2 (13:00→22:00)
[2020-01-18] MEDS ORDERED: Lidocaine 1% 10 ML MDV INJECT ONE (13:01)
--- NOTE | 2020-01-18 13:37 | PCM.CONS ---
H&P History of Present Illness - General Date of Service: 01/18/20 Admit Problem/Dx: Admission Diagnosis/Problem Admission Diagnosis/Problem Cellulitis Source of Information: Patient History Limitations: Reports: No Limitations - History of Present Illness Initial Comments - Free Text/Narative: Patient is admitted for bilateral leg cellulitis and right toe cellulitis. He is on antibiotics. Today, the plantar apect of the right toe seemed a little more tender and had a scab on it. An abscess in this area was suspected and I was asked to evaluate the patient. Onset of Symptoms: Reports: Gradual Duration of Symptoms: Reports: Week(s): (2) Location: Reports: Lower Extremity, Left, Lower Extremity, Right Quality: Reports: Sharp Severity: Moderate Improves with: Reports: None, Rest Worsens with: Reports: Movement Right Leg Pain Score (Numeric/FACES): 3 - Related Data Allergies/Adverse Reactions: Allergies Allergy/AdvReac Type Severity Reaction Status Date / Time No Known Allergies Allergy Verified 01/16/20 18:29 Home Medications: Home Meds allopurinoL [Zyloprim] 100 mg PO DAILY 09/16/13 [History] Rivaroxaban [Xarelto] 20 mg PO DAILY #30 tablet 07/21/15 [Rx] Cyclobenzaprine [Flexeril] 10 mg PO BID 12/18/16 [History] Ezetimibe 10 mg PO BEDTIME 02/18/18 [History] Calcium Carbonate/Vitamin D3 [Calcium 600 + Vit D 400 Softgl] 1 tab PO BID 03/10/19 [History] Melatonin 5 mg PO BEDTIME PRN 03/10/19 [History] Acetaminophen [Tylenol Arthritis Pain] 650 mg PO BID 01/17/20 [History] Famotidine 20 mg PO BID 01/17/20 [History] Furosemide 40 mg PO DAILY 01/17/20 [History] Metoprolol Succinate [Toprol XL 50mg] 50 mg PO QAM 01/17/20 [History] Montelukast [Singulair] 10 mg PO BEDTIME 01/17/20 [History] Multivitamin [Tab-A-Kira] 1 tab PO DAILY 01/17/20 [History] Non-Formulary Medication [NF Drug] 500 mg PO DAILY 01/17/20 [History] Pimozide 2 mg PO BID 01/17/20 [History] Sennosides [Senna] 8.6 mg PO BEDTIME 01/17/20 [History] Sertraline [Zoloft] 100 mg PO DAILY 01/17/20 [History] Tamsulosin [Flomax] 0.4 mg PO BEDTIME 01/17/20 [History] Thiamine HCl [Vitamin B-1] 100 mg PO DAILY 01/17/20 [History] Thiamine HCl [Vitamin B-1] 100 mg PO DAILY 01/17/20 [History] lamoTRIgine [Lamotrigine] 25 mg PO BID 01/17/20 [History] sitaGLIPtin Phosphate [Januvia] 50 mg PO DAILY 01/17/20 [History] Past Medical History HEENT History: Reports: Sinusitis, Other (See Below) Other HEENT History: sialodenitis, oral surgery, bilateral myopia Cardiovascular History: Reports: None, Afib, Blood Clots/VTE/DVT, CAD, Cardiomyopathy, Heart Failure, High Cholesterol, Hypertension, CO, PVD, Stents Other Cardiovascular History: occulusion and left carotid artery Respiratory History: Reports: COPD, Sleep Apnea Other Respiratory History: hypoxia Gastrointestinal History: Reports: GERD Genitourinary History: Reports: Acute Renal Failure, BPH, Chronic Renal Insuffiency [employer]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: Reports: None Musculoskeletal History: Reports: Back Pain, Chronic, Gout, Other (See Below) Other Musculoskeletal History: left back fusion Neurological History: Reports: CVA, Migraines Other Neuro History: spinal stenosis, cerviclagia, post-laminectomy syndrome Psychiatric History: Reports: Depression, Other (See Below) Other Psychiatric History: insomnia;mental and behavioral disorders, substance abuse history, opiod dependence, confusion, psychosis, somnolence, insomnia, chronic pain syndrome Endocrine/Metabolic History: Reports: Diabetes, Type II, Hypothyroidism, Obesity/BMI 30+ Hematologic History: Reports: Other (See Below) Other Hematologic History: hypokalemia, hypomagnesia Immunologic History: Reports: None Oncologic (Cancer) History: Reports: None Dermatologic History: Reports: Cellulitis Other Dermatologic History: ingrown toe nails, skin disorder - Infectious Disease History Infectious Disease History: Reports: Chicken Pox, Measles - Past Surgical History Head Surgeries/Procedures: Reports: None HEENT Surgical History: Reports: Naso-Sinus Surgery, Oral Surgery, Other (See Below) Other HEENT Surgeries/Procedures: oral infection Cardiovascular Surgical History: Reports: None Respiratory Surgical History: Reports: None GI Surgical History: Reports: Hernia Repair/Other Male Surgical History: Reports: None Endocrine Surgical History: Reports: None Neurological Surgical History: Reports: Laminectomy, Spinal Fusion Musculoskeletal Surgical History: Reports: Other (See Below) Other Musculoskeletal Surgeries/Procedures:: left shoulder surgery Oncologic Surgical History: Reports: None Dermatological Surgical History: Reports: None Social & Family History - Family History Family Medical History: Noncontributory HEENT: Reports: None Cardiac: Reports: CO, Stent, Other (See Below) Other Cardiac Family History: Unsure of exact family history GI: Reports: Cholelithiasis Musculoskeletal: Reports: Gout Neurological: Reports: Alzheimers Disease Endocrine/Metabolic: Reports: Diabetes, type II Oncologic: Reports: Colon - Tobacco Use Smoking Status *Q: Never Smoker Second Hand Smoke Exposure: No - Caffeine Use Caffeine Use: Reports: Soda Other Caffeine Use: 2 [address] of [address] Pepper per day. - Recreational Drug Use Recreational Drug Use: No - Living Situation & Occupation Living situation: Reports: Single Occupation: Disabled H&P Review of Systems - Review of Systems: Review Of Systems: See Below General: Reports: No Symptoms HEENT: Reports: No Symptoms Pulmonary: Reports: No Symptoms Cardiovascular: Reports: No Symptoms Gastrointestinal: Reports: No Symptoms Genitourinary: Reports: No Symptoms Musculoskeletal: Reports: No Symptoms Skin: Reports: Erythema (bilateral shins), Change in Hair/Nails Exam - Exam Exam: See Below - Vital Signs Vital Signs: Last Vital Signs Temp 98.6 F 01/18/20 11:00 Pulse 99 01/18/20 11:00 Resp 18 01/18/20 11:00 BP 130/60 01/18/20 11:00 Pulse Ox 90 L 01/18/20 11:00 Weight: 136.259 kg - Exam General: Alert, Oriented, Cooperative Lungs: Normal Respiratory Effort Cardiovascular: Regular Rate, Regular Rhythm Extremities: Other (planta aspects of the right foot has an area of focal tenderness and a scab. this area is erythematous. Upon pressing, small amount of pus expressed.) Skin: Warm, Dry, Intact, Other (there is cellulitis in bilateral shins, skin is erythematous, thin, scaly and dry. the left barron area has two separate scabs of healing wounds.) - Patient Data Lab Results Last 24 hrs: Laboratory Results - last 24 hr 01/17/20 01/17/20 01/17/20 Range/Units 14:20 14:20 14:20 WBC (4.23-9.07) K/mm3 RBC (4.63-6.08) M/mm3 Hgb (13.7-17.5) gm/dl Hct (40.1-51.0) % MCV (79.0-92.2) fl MCH (25.7-32.2) pg MCHC (32.2-35.5) g/dl RDW Std Deviation (35.1-43.9) fL Plt Count (163-337) K/mm3 MPV (9.4-12.3) fl Neut % (Auto) (34.0-67.9) % Lymph % (Auto) (21.8-53.1) % [place] % (Auto) (5.3-12.2) % Eos % (Auto) (0.8-7.0) Baso % (Auto) (0.1-1.2) % Neut # (Auto) (1.78-5.38) K/mm3 Lymph # (Auto) (1.32-3.57) K/mm3 [place] # (Auto) (0.30-0.82) K/mm3 Eos # (Auto) (0.04-0.54) K/mm3 Baso # (Auto) (0.01-0.08) K/mm3 Manual Slide Review ESR (0-15) mm/hr Percent Retic 1.57 (0.51-1.81) % Sodium (136-145) mEq/L Potassium (3.5-5.1) mEq/L Chloride (98-107) mEq/L Carbon Dioxide (21-32) mEq/L Anion Gap (5-15) BUN (7-18) mg/dL Creatinine (0.7-1.3) mg/dL Est Cr Clr Drug Dosing mL/min Estimated GFR (MDRD) (>60) mL/min BUN/Creatinine Ratio (14-18) Glucose (80-115) mg/dL POC Glucose (80-115) mg/dL Hemoglobin A1c 7.50 H (4.50-6.20) % Calcium (8.5-10.1) mg/dL Phosphorus (2.6-4.7) mg/dL Magnesium (1.8-2.4) mg/dl Iron (65-175) ug/dL TIBC (100-400) ug/dL % Saturation (20-55) % Transferrin (202-364) mg/dL Prealbumin (17.0-34.0) mg/dL Vitamin B12 (193-986) pg/ml Vitamin D 25-Hydroxy (30.0-100.0) ng/ml Folate (8.6-58.9) ng/mL Procalcitonin 0.75 H (<0.10) ng/mL 01/17/20 01/17/20 01/17/20 Range/Units 14:20 14:20 14:20 WBC (4.23-9.07) K/mm3 RBC (4.63-6.08) M/mm3 Hgb (13.7-17.5) gm/dl Hct (40.1-51.0) % MCV (79.0-92.2) fl MCH (25.7-32.2) pg MCHC (32.2-35.5) g/dl RDW Std Deviation (35.1-43.9) fL Plt Count (163-337) K/mm3 MPV (9.4-12.3) fl Neut % (Auto) (34.0-67.9) % Lymph % (Auto) (21.8-53.1) % [place] % (Auto) (5.3-12.2) % Eos % (Auto) (0.8-7.0) Baso % (Auto) (0.1-1.2) % Neut # (Auto) (1.78-5.38) K/mm3 Lymph # (Auto) (1.32-3.57) K/mm3 [place] # (Auto) (0.30-0.82) K/mm3 Eos # (Auto) (0.04-0.54) K/mm3 Baso # (Auto) (0.01-0.08) K/mm3 Manual Slide Review ESR (0-15) mm/hr Percent Retic (0.51-1.81) % Sodium (136-145) mEq/L Potassium (3.5-5.1) mEq/L Chloride (98-107) mEq/L Carbon Dioxide (21-32) mEq/L Anion Gap (5-15) BUN (7-18) mg/dL Creatinine (0.7-1.3) mg/dL Est Cr Clr Drug Dosing mL/min Estimated GFR (MDRD) (>60) mL/min BUN/Creatinine Ratio (14-18) Glucose (80-115) mg/dL POC Glucose (80-115) mg/dL Hemoglobin A1c (4.50-6.20) % Calcium (8.5-10.1) mg/dL Phosphorus (2.6-4.7) mg/dL Magnesium (1.8-2.4) mg/dl Iron 15 L (65-175) ug/dL TIBC 523 H (100-400) ug/dL % Saturation 3 L (20-55) % Transferrin 418 H (202-364) mg/dL Prealbumin 19.3 (17.0-34.0) mg/dL Vitamin B12 506 (193-986) pg/ml Vitamin D 25-Hydroxy 38.1 (30.0-100.0) ng/ml Folate 28.3 (8.6-58.9) ng/mL Procalcitonin (<0.10) ng/mL 01/17/20 01/17/20 01/18/20 Range/Units 16:47 21:23 06:06 WBC 18.37 H (4.23-9.07) K/mm3 RBC 4.84 (4.63-6.08) M/mm3 Hgb 11.3 L (13.7-17.5) gm/dl Hct 40.0 L (40.1-51.0) % MCV 82.6 (79.0-92.2) fl MCH 23.3 L (25.7-32.2) pg MCHC 28.3 L (32.2-35.5) g/dl RDW Std Deviation 53.9 H (35.1-43.9) fL Plt Count 319 (163-337) K/mm3 MPV 10.7 (9.4-12.3) fl Neut % (Auto) 81.3 H (34.0-67.9) % Lymph % (Auto) 7.7 L (21.8-53.1) % [place] % (Auto) 9.6 (5.3-12.2) % Eos % (Auto) 0.8 (0.8-7.0) Baso % (Auto) 0.3 (0.1-1.2) % Neut # (Auto) 14.94 H (1.78-5.38) K/mm3 Lymph # (Auto) 1.41 (1.32-3.57) K/mm3 [place] # (Auto) 1.76 H (0.30-0.82) K/mm3 Eos # (Auto) 0.14 (0.04-0.54) K/mm3 Baso # (Auto) 0.06 (0.01-0.08) K/mm3 Manual Slide Review Abnormal smear ESR (0-15) mm/hr Percent Retic (0.51-1.81) % Sodium (136-145) mEq/L Potassium (3.5-5.1) mEq/L Chloride (98-107) mEq/L Carbon Dioxide (21-32) mEq/L Anion Gap (5-15) BUN (7-18) mg/dL Creatinine (0.7-1.3) mg/dL Est Cr Clr Drug Dosing mL/min Estimated GFR (MDRD) (>60) mL/min BUN/Creatinine Ratio (14-18) Glucose (80-115) mg/dL POC Glucose 162 H 200 H (80-115) mg/dL Hemoglobin A1c (4.50-6.20) % Calcium (8.5-10.1) mg/dL Phosphorus (2.6-4.7) mg/dL Magnesium (1.8-2.4) mg/dl Iron (65-175) ug/dL TIBC (100-400) ug/dL % Saturation (20-55) % Transferrin (202-364) mg/dL Prealbumin (17.0-34.0) mg/dL Vitamin B12 (193-986) pg/ml Vitamin D 25-Hydroxy (30.0-100.0) ng/ml Folate (8.6-58.9) ng/mL Procalcitonin (<0.10) ng/mL 01/18/20 01/18/20 01/18/20 Range/Units 06:06 06:06 07:04 WBC (4.23-9.07) K/mm3 RBC (4.63-6.08) M/mm3 Hgb (13.7-17.5) gm/dl Hct (40.1-51.0) % MCV (79.0-92.2) fl MCH (25.7-32.2) pg MCHC (32.2-35.5) g/dl RDW Std Deviation (35.1-43.9) fL Plt Count (163-337) K/mm3 MPV (9.4-12.3) fl Neut % (Auto) (34.0-67.9) % Lymph % (Auto) (21.8-53.1) % [place] % (Auto) (5.3-12.2) % Eos % (Auto) (0.8-7.0) Baso % (Auto) (0.1-1.2) % Neut # (Auto) (1.78-5.38) K/mm3 Lymph # (Auto) (1.32-3.57) K/mm3 [place] # (Auto) (0.30-0.82) K/mm3 Eos # (Auto) (0.04-0.54) K/mm3 Baso # (Auto) (0.01-0.08) K/mm3 Manual Slide Review ESR 50 H (0-15) mm/hr Percent Retic (0.51-1.81) % Sodium 137 (136-145) mEq/L Potassium 4.2 (3.5-5.1) mEq/L Chloride 99 (98-107) mEq/L Carbon Dioxide 33 H (21-32) mEq/L Anion Gap 9.2 (5-15) BUN 20 H (7-18) mg/dL Creatinine 1.2 (0.7-1.3) mg/dL Est Cr Clr Drug Dosing 68.26 mL/min Estimated GFR (MDRD) > 60 (>60) mL/min BUN/Creatinine Ratio 16.7 (14-18) Glucose 149 H (80-115) mg/dL POC Glucose 149 H (80-115) mg/dL Hemoglobin A1c (4.50-6.20) % Calcium 9.7 (8.5-10.1) mg/dL Phosphorus 3.3 (2.6-4.7) mg/dL Magnesium 2.2 (1.8-2.4) mg/dl Iron (65-175) ug/dL TIBC (100-400) ug/dL % Saturation (20-55) % Transferrin (202-364) mg/dL Prealbumin (17.0-34.0) mg/dL Vitamin B12 (193-986) pg/ml Vitamin D 25-Hydroxy (30.0-100.0) ng/ml Folate (8.6-58.9) ng/mL Procalcitonin (<0.10) ng/mL 01/18/20 01/18/20 01/18/20 Range/Units 07:52 09:40 12:02 WBC (4.23-9.07) K/mm3 RBC (4.63-6.08) M/mm3 Hgb (13.7-17.5) gm/dl Hct (40.1-51.0) % MCV (79.0-92.2) fl MCH (25.7-32.2) pg MCHC (32.2-35.5) g/dl RDW Std Deviation (35.1-43.9) fL Plt Count (163-337) K/mm3 MPV (9.4-12.3) fl Neut % (Auto) (34.0-67.9) % Lymph % (Auto) (21.8-53.1) % [place] % (Auto) (5.3-12.2) % Eos % (Auto) (0.8-7.0) Baso % (Auto) (0.1-1.2) % Neut # (Auto) (1.78-5.38) K/mm3 Lymph # (Auto) (1.32-3.57) K/mm3 [place] # (Auto) (0.30-0.82) K/mm3 Eos # (Auto) (0.04-0.54) K/mm3 Baso # (Auto) (0.01-0.08) K/mm3 Manual Slide Review ESR (0-15) mm/hr Percent Retic (0.51-1.81) % Sodium (136-145) mEq/L Potassium (3.5-5.1) mEq/L Chloride (98-107) mEq/L Carbon Dioxide (21-32) mEq/L Anion Gap (5-15) BUN (7-18) mg/dL Creatinine (0.7-1.3) mg/dL Est Cr Clr Drug Dosing mL/min Estimated GFR (MDRD) (>60) mL/min BUN/Creatinine Ratio (14-18) Glucose (80-115) mg/dL POC Glucose 156 H 198 H 189 H (80-115) mg/dL Hemoglobin A1c (4.50-6.20) % Calcium (8.5-10.1) mg/dL Phosphorus (2.6-4.7) mg/dL Magnesium (1.8-2.4) mg/dl Iron (65-175) ug/dL TIBC (100-400) ug/dL % Saturation (20-55) % Transferrin (202-364) mg/dL Prealbumin (17.0-34.0) mg/dL Vitamin B12 (193-986) pg/ml Vitamin D 25-Hydroxy (30.0-100.0) ng/ml Folate (8.6-58.9) ng/mL Procalcitonin (<0.10) ng/mL Result Diagrams: 01/18/20 06:06 01/18/20 06:06 Rosa Isela Results Last 24 hrs: Microbiology 01/17/20 09:15 Wound Culture - Preliminary Leg, Left Gram Positive Cocci 01/16/20 19:50 Aerobic Blood Culture - Preliminary Blood - Venous - Lab Draw NO GROWTH AFTER 1 DAY Anaerobic Blood Culture - Preliminary NO GROWTH AFTER 1 DAY 01/16/20 19:45 Aerobic Blood Culture - Preliminary Blood - Venous NO GROWTH AFTER 1 DAY Anaerobic Blood Culture - Preliminary NO GROWTH AFTER 1 DAY Sepsis Event Note - Evaluation Sepsis Screening Result: No Definite Risk - Focused Exam Vital Signs: Vital Signs Temp Pulse Resp BP Pulse Ox 01/18/20 11:00 98.6 F 99 18 130/60 90 L 01/18/20 08:08 99 131/62 01/18/20 07:47 98.4 F 99 20 131/62 89 L 01/18/20 05:41 105 H 125/89 94 L 01/18/20 05:40 98.2 F 105 H 18 92 L *Q Meaningful Use (ADM) - VTE *Q VTE Anticoagulation Contraindications: Medical/Procedure Contrai Consult PN Assessment/Plan Procedures: Procedures APPLICATION OF PASTE BOOT (01/08/18) ASSAY DIPROPYLACETIC ACD TOT (07/10/19) ASSAY OF AMMONIA (07/10/19) ASSAY OF CREATININE (09/10/15) ASSAY OF DIGOXIN TOTAL (09/16/13) ASSAY OF LACTIC ACID (09/20/16) ASSAY OF LIPASE (12/18/16) ASSAY OF MAGNESIUM (12/18/16) ASSAY OF NATRIURETIC PEPTIDE (09/20/16) ASSAY OF TROPONIN QUANT (12/18/16) ASSAY OF URINE CREATININE (03/02/17) ASSAY OF URINE SODIUM (03/02/17) ASSAY OF URINE/UREA-N (03/02/17) ASSAY THYROID STIM HORMONE (12/18/16) BLOOD CULTURE FOR BACTERIA (09/20/16) BONE IMAGING LIMITED AREA (12/29/13) C DIFF AMPLIFIED PROBE (12/03/13) C-REACTIVE PROTEIN (12/18/16) CHEST X-RAY 1 VIEW FRONTAL (12/18/16) CHEST X-RAY 2VW FRONTAL&LATL (09/16/13) COGNITIVE SKILLS DEVELOPMENT (12/18/16) COGNITIVE TEST BY HC PRO (12/18/16) COLONOSCOPY AND BIOPSY (03/11/19) COLONOSCOPY W/LESION REMOVAL (03/11/19) COMPLETE CBC W/AUTO DIFF WBC (12/18/16) COMPREHEN METABOLIC PANEL (11/24/18) CREATINE MB FRACTION (09/20/16) CT ABD & PELV W/CONTRAST (12/18/16) CT CHEST SPINE W/O DYE (10/16/16) CT HEAD/BRAIN W/O DYE (11/24/18) CT LUMBAR SPINE W/O DYE (09/23/13) CT MAXILLOFACIAL W/O DYE (09/20/16) CT THORAX W/DYE (02/05/14) CT THORAX W/O DYE (10/16/16) CULTURE AEROBIC IDENTIFY (09/16/13) CULTURE OTHR SPECIMN AEROBIC (09/16/13) DRUG TEST PRSMV INSTRMNT (12/18/16) ECG MONIT/REPRT UP TO 48 HRS (11/20/19) ECG MONIT/REPRT UP TO 48 HRS (11/20/19) EGD BIOPSY SINGLE/MULTIPLE (03/11/19) ELECTROCARDIOGRAM TRACING (11/24/18) EMERGENCY DEPT VISIT (11/24/18) EMERGENCY DEPT VISIT (10/16/16) EMERGENCY DEPT VISIT (09/20/16) EXTRACRANIAL BILAT STUDY (12/18/16) GLUCOSE BLOOD TEST (11/24/18) GLYCOSYLATED HEMOGLOBIN TEST (12/18/16) HETEROPHILE ANTIBODY SCREEN (07/17/15) HYDRATE IV INFUSION ADD-ON (11/24/18) HYDRATION IV INFUSION INIT (12/18/16) INFLUENZA ASSAY W/OPTIC (07/17/15) LIPID PANEL (12/18/16) MANUAL THERAPY 1/> REGIONS (01/08/18) MASSAGE THERAPY (12/07/15) MEASURE BLOOD OXYGEN LEVEL (07/17/15) MEASURE BLOOD OXYGEN LEVEL (07/17/15) METABOLIC PANEL TOTAL CA (12/18/16) MICROBE SUSCEPTIBLE ROSA ISELA (09/16/13) MR ANGIOGRAPHY HEAD W/O DYE (12/18/16) MR ANGIOGRAPHY NECK W/DYE (07/17/15) MRI BRAIN STEM W/O DYE (12/18/16) MRI LUMBAR SPINE W/O & W/DYE (09/10/15) MRI LUMBAR SPINE W/O DYE (08/15/18) NASAL SMEAR FOR EOSINOPHILS (03/02/17) NEUROMUSCULAR REEDUCATION (12/07/15) OT EVAL LOW COMPLEX 30 MIN (12/18/16) OT EVALUATION (07/17/15) POLYSOM 6/>YRS CPAP 4/> PARM (07/11/17) PROTHROMBIN TIME (12/18/16) PT EVAL LOW COMPLEX 20 MIN (01/08/18) PT EVALUATION (11/11/15) RMVL DEVITAL TIS 20 CM/< (09/16/13) ROUTINE VENIPUNCTURE (07/10/19) SARS-COV2 COVID-19 AMP PRB (10/31/19) STOOL CULTR AEROBIC BACT EA (12/03/13) THER/PROPH/DIAG INJ IV PUSH (11/24/18) THER/PROPH/DIAG IV INF INIT (09/20/16) THERAPEUTIC ACTIVITIES (01/08/18) THERAPEUTIC EXERCISES (01/08/18) THROMBOPLASTIN TIME PARTIAL (12/18/16) TTE W/DOPPLER COMPLETE (12/18/16) TX/PRO/DX INJ NEW DRUG ADDON (07/17/15) TX/PRO/DX INJ SAME DRUG DOUBLE NEEDLE STITCHER (07/17/15) URINALYSIS AUTO W/SCOPE (12/18/16) URINE CULTURE/COLONY COUNT (09/20/16) US EXAM ABDO BACK WALL COMP (10/12/17) VANOMYCIN DNA AMP PROBE (12/03/13) X-RAY EXAM L-S SPINE 2/3 VWS (11/24/18) X-RAY EXAM OF FOOT (09/16/13) X-RAY EXAM OF FOREARM (12/18/16) X-RAY EXAM OF PELVIS (11/24/18) X-RAY EXAM UNILAT RIBS/CHEST (07/17/15) Problem List Initiated/Reviewed/Updated: No My Orders Last 24 Hours: Patient with bilateral barron cellulitis. On my exam, no concern for abscess in these areas. The right plantar food has a small area of possible abscess. Bedside I&D performed, very minimal pus noted. No wound pocket. Possible right toe gout flare as well. - wet to dry in the right plantar foot wound, change daily - Otherwise continue antibiotics for cellulitis. - Continue gout medications - Please call with any questions
--- NOTE | 2020-01-18 14:46 | PROC ---
DATE OF OPERATION: 01/18/2020 SURGEON: Dorcas Gutierres MD PREOPERATIVE DIAGNOSIS: Right plantar abscess. POSTOPERATIVE DIAGNOSIS: Right plantar abscess. PROCEDURE: Incision and drainage of right plantar abscess. ANESTHESIA: Local anesthetic. INDICATION AND CONSENT: Mr. Mcguire is a 64-year-old male with diabetes. The patient presented with cellulitis bilateral barron as well as cellulitis of the big toe and plantar foot. He had been treated with antibiotics, but he developed a really tender spot in the right plantar area. I was asked to examine the patient and upon my exam, I was able to express a small amount of pus in the right plantar area that had a scab on it, therefore, I suspected an abscess in this area. I discussed with the patient risks, benefits, and alternatives for I and D. The patient wanted to proceed with I and D and informed consent was obtained. DETAILS OF THE PROCEDURE: The foot was elevated, cleaned, and local anesthetic was infiltrated. Then, using a #11 blade, the scab was removed. We were able to get a very small amount of pus. Around this area, there was a small pocket right under the scab. The rest of the tissue appeared to be viable and normal. No further infection abscess was suspected. At this point, the area was cleaned and dressed with a wet dressing. The plan is for the patient to proceed to continue wet-to-dry dressings, change daily until the wound heals.Wound size if 1 cm x 1.5 cm. MMODAL /[id number]
[2020-01-18] MEDS: PIMOZIDE PO SCH ×2 (14:55→21:09)
[2020-01-18] MEDS: Rivaroxaban 10 MG Tab PO SCH (16:46)
[2020-01-18] MEDS: Vancomycin 1 GM, Vancomycin 500 MG in Sodium Chloride 0.9% 500 ML IV SCH (16:50)
[2020-01-18] MEDS: QUEtiapine 25 MG Tab PO SCH (21:08)
[2020-01-18] MEDS: Insulin Glarg,Human.Rec.Analog 100 Unit/ML SUBCUT SCH (21:19)
[2020-01-18] MEDS: Melatonin 3 MG Tab PO PRN (21:20)
[2020-01-19] MEDS: Vancomycin 1 GM, Vancomycin 500 MG in Sodium Chloride 0.9% 500 ML IV SCH (01:19)
[2020-01-19] MEDS ORDERED: Magnesium Hydroxide 400 MG/5 ML Susp 30 ML Cup PO ONE (06:00)
[2020-01-19] MEDS: Acetaminophen/Codeine 300-30 MG Tab PO PRN (06:09)
[2020-01-19] MEDS: ceFAZolin 2 GM in Premix Bag 1 BAG IV SCH ×3 (06:09→21:01)
[2020-01-19] MEDS: Furosemide 40 MG Tab PO SCH (08:05)
[2020-01-19] MEDS: Famotidine 20 MG Tab PO SCH ×2 (08:06→21:00)
[2020-01-19] MEDS: Cyclobenzaprine 10 MG Tab PO SCH ×2 (08:06→21:00)
[2020-01-19] MEDS: Allopurinol 100 MG Tab PO SCH (08:06)
[2020-01-19] MEDS: Metoprolol Succinate 50 MG Tab.ER PO SCH (08:07)
[2020-01-19] MEDS: Thiamine 100 MG Tab PO SCH (08:07)
[2020-01-19] MEDS: Sertraline 50 MG Tab PO SCH (08:07)
[2020-01-19] MEDS: PIMOZIDE PO SCH ×2 (08:11→21:01)
--- NOTE | 2020-01-19 11:33 | PCM.PN ---
- General Info Date of Service: 01/19/20 Admission Dx/Problem (Free Text): Admission Diagnosis/Problem Admission Diagnosis/Problem Cellulitis Subjective Update: Gordon continues to improve. Leg pain and edema this morning bilaterally is improved. He did state his right leg swelled up overnight, but it is better now. Oxygenation has been adequate on room air. Patient has not had a bowel movement. Appetite is good. - Review of Systems General: Reports: No Symptoms HEENT: Reports: No Symptoms Pulmonary: Reports: No Symptoms Cardiovascular: Reports: No Symptoms Gastrointestinal: Reports: No Symptoms Skin: Reports: Other (Pain and redness in the anterior shins) - Patient Data Vitals - Most Recent: Last Vital Signs Temp 98.2 F 01/19/20 08:05 Pulse 91 01/19/20 08:07 Resp 18 01/19/20 08:05 BP 130/64 01/19/20 08:07 Pulse Ox 92 L 01/19/20 08:05 Weight - Most Recent: 136.486 kg I&O - Last 24 Hours: Intake & Output 01/18/20 01/19/20 01/19/20 22:59 06:59 14:59 Intake Total 650 870 Output Total 1000 600 Balance -350 270 Lab Results Last 24 Hours: Laboratory Results - last 24 hr 01/18/20 01/18/20 01/18/20 Range/Units 12:02 16:44 21:19 WBC (4.23-9.07) K/mm3 RBC (4.63-6.08) M/mm3 Hgb (13.7-17.5) gm/dl Hct (40.1-51.0) % MCV (79.0-92.2) fl MCH (25.7-32.2) pg MCHC (32.2-35.5) g/dl RDW Std Deviation (35.1-43.9) fL Plt Count (163-337) K/mm3 MPV (9.4-12.3) fl Neut % (Auto) (34.0-67.9) % Lymph % (Auto) (21.8-53.1) % [place] % (Auto) (5.3-12.2) % Eos % (Auto) (0.8-7.0) Baso % (Auto) (0.1-1.2) % Neut # (Auto) (1.78-5.38) K/mm3 Lymph # (Auto) (1.32-3.57) K/mm3 [place] # (Auto) (0.30-0.82) K/mm3 Eos # (Auto) (0.04-0.54) K/mm3 Baso # (Auto) (0.01-0.08) K/mm3 Manual Slide Review Sodium (136-145) mEq/L Potassium (3.5-5.1) mEq/L Chloride (98-107) mEq/L Carbon Dioxide (21-32) mEq/L Anion Gap (5-15) BUN (7-18) mg/dL Creatinine (0.7-1.3) mg/dL Est Cr Clr Drug Dosing mL/min Estimated GFR (MDRD) (>60) mL/min BUN/Creatinine Ratio (14-18) Glucose (80-115) mg/dL POC Glucose 189 H 242 H 167 H (80-115) mg/dL Calcium (8.5-10.1) mg/dL Magnesium (1.8-2.4) mg/dl Total Bilirubin (0.2-1.0) mg/dL AST (15-37) U/L ALT (16-63) U/L Alkaline Phosphatase (46-116) U/L C-Reactive Protein (<1.0) mg/dL Total Protein (6.4-8.2) g/dl Albumin (3.4-5.0) g/dl Globulin gm/dL Albumin/Globulin Ratio (1-2) 01/19/20 01/19/20 01/19/20 Range/Units 06:05 10:02 10:02 WBC 13.56 H (4.23-9.07) K/mm3 RBC 5.11 (4.63-6.08) M/mm3 Hgb 12.1 L (13.7-17.5) gm/dl Hct 41.6 (40.1-51.0) % MCV 81.4 (79.0-92.2) fl MCH 23.7 L (25.7-32.2) pg MCHC 29.1 L (32.2-35.5) g/dl RDW Std Deviation 52.8 H (35.1-43.9) fL Plt Count 308 (163-337) K/mm3 MPV 10.9 (9.4-12.3) fl Neut % (Auto) 82.9 H (34.0-67.9) % Lymph % (Auto) 8.0 L (21.8-53.1) % [place] % (Auto) 6.7 (5.3-12.2) % Eos % (Auto) 1.3 (0.8-7.0) Baso % (Auto) 0.5 (0.1-1.2) % Neut # (Auto) 11.25 H (1.78-5.38) K/mm3 Lymph # (Auto) 1.08 L (1.32-3.57) K/mm3 [place] # (Auto) 0.91 H (0.30-0.82) K/mm3 Eos # (Auto) 0.17 (0.04-0.54) K/mm3 Baso # (Auto) 0.07 (0.01-0.08) K/mm3 Manual Slide Review Abnormal smear Sodium 139 (136-145) mEq/L Potassium 3.8 (3.5-5.1) mEq/L Chloride 98 (98-107) mEq/L Carbon Dioxide 33 H (21-32) mEq/L Anion Gap 11.8 (5-15) BUN 21 H (7-18) mg/dL Creatinine 1.1 (0.7-1.3) mg/dL Est Cr Clr Drug Dosing 74.46 mL/min Estimated GFR (MDRD) > 60 (>60) mL/min BUN/Creatinine Ratio 19.1 H (14-18) Glucose 155 H (80-115) mg/dL POC Glucose 150 H (80-115) mg/dL Calcium 9.6 (8.5-10.1) mg/dL Magnesium 2.0 (1.8-2.4) mg/dl Total Bilirubin 0.3 (0.2-1.0) mg/dL AST 14 L (15-37) U/L ALT 19 (16-63) U/L Alkaline Phosphatase 85 (46-116) U/L C-Reactive Protein 26.8 H* (<1.0) mg/dL Total Protein 8.1 (6.4-8.2) g/dl Albumin 3.1 L (3.4-5.0) g/dl Globulin 5.0 gm/dL Albumin/Globulin Ratio 0.6 L (1-2) Clarke Results Last 24 Hours: Microbiology 01/17/20 09:15 Wound Culture - Final Leg, Left Staphylococcus Aureus 01/19/20 03:30 Occult Blood - Preliminary Stool / Feces 01/16/20 19:50 Aerobic Blood Culture - Preliminary Blood - Venous - Lab Draw NO GROWTH AFTER 2 DAYS Anaerobic Blood Culture - Preliminary NO GROWTH AFTER 2 DAYS 01/16/20 19:45 Aerobic Blood Culture - Preliminary Blood - Venous NO GROWTH AFTER 2 DAYS Anaerobic Blood Culture - Preliminary NO GROWTH AFTER 2 DAYS Med Orders - Current: Current Medications Acetaminophen (Tylenol) 650 mg PO Q4H PRN PRN Reason: Pain (Mild 1-3)/fever Acetaminophen/Codeine Phosphate (Tylenol With Codeine No.3 300mg/30mg) 2 tab PO Q6H PRN PRN Reason: Pain Last Admin: 01/19/20 06:09 Dose: 2 tab Documented by: Allopurinol (Zyloprim) 100 mg PO DAILY [facility] Last Admin: 01/19/20 08:06 Dose: 100 mg Documented by: Cyclobenzaprine HCl (Flexeril) 10 mg PO BID [facility] Last Admin: 01/19/20 08:06 Dose: 10 mg Documented by: Dextrose/Water (Dextrose 50% In Water) 50 ml IVPUSH ASDIRECTED PRN PRN Reason: Hypoglycemia Famotidine (Pepcid) 20 mg PO BID [facility] Last Admin: 01/19/20 08:06 Dose: 20 mg Documented by: Furosemide (Lasix) 40 mg PO DAILY [facility] Last Admin: 01/19/20 08:05 Dose: 40 mg Documented by: Cefazolin Sodium/Dextrose 2 gm (/ Premix) 50 mls @ 100 mls/hr IV Q8H [facility] Last Admin: 01/19/20 06:09 Dose: 100 mls/hr Documented by: Insulin Glargine (Lantus) 10 unit SUBCUT BEDTIME [facility] Last Admin: 01/18/20 21:19 Dose: 10 units Documented by: Lamotrigine (Lamotrigine) 25 mg PO BID [facility] Last Admin: 01/19/20 08:06 Dose: 25 mg Documented by: Melatonin (Melatonin) 6 mg PO BEDTIME PRN PRN Reason: Insomnia Last Admin: 01/18/20 21:20 Dose: 6 mg Documented by: Metoprolol Succinate (Toprol Xl) 50 mg PO QAM [facility] Last Admin: 01/19/20 08:07 Dose: 50 mg Documented by: Montelukast Sodium (Singulair) 10 mg PO BEDTIME [facility] Last Admin: 01/18/20 21:09 Dose: 10 mg Documented by: Morphine Sulfate (Morphine) 2 mg IVPUSH Q4H PRN PRN Reason: Pain (severe 7-10) Ondansetron HCl (Zofran) 4 mg IV Q6H PRN PRN Reason: Nausea/Vomiting Pimozide 2 Mg 0 each PO BID [facility] Last Admin: 01/19/20 08:11 Dose: Not Given Documented by: Quetiapine Fumarate (Seroquel) 50 mg PO BEDTIME [facility] Last Admin: 01/18/20 21:08 Dose: 50 mg Documented by: Rivaroxaban (Xarelto) 20 mg PO WITHDINNER [facility] Last Admin: 01/18/20 16:46 Dose: 20 mg Documented by: Senna (Senna) 8.6 mg PO BEDTIME [facility] Last Admin: 01/18/20 21:09 Dose: 8.6 mg Documented by: Sertraline HCl (Zoloft) 100 mg PO DAILY [facility] Last Admin: 01/19/20 08:07 Dose: 100 mg Documented by: Sodium Chloride (Saline Flush) 10 ml FLUSH ASDIRECTED PRN PRN Reason: Keep Vein Open Last Admin: 01/16/20 20:28 Dose: 10 ml Documented by: Tamsulosin HCl (Flomax) 0.4 mg PO BEDTIME [facility] Last Admin: 01/18/20 21:08 Dose: 0.4 mg Documented by: Thiamine HCl (Vitamin B-1) 100 mg PO DAILY [facility] Last Admin: 01/19/20 08:07 Dose: 100 mg Documented by: Vancomycin HCl (Pharmacy To Dose - Vancomycin) 0 dose .XX ASDIRECTED PRN PRN Reason: RX TO DOSE VANCOMYCIN Discontinued Medications Vancomycin HCl 2 gm/ Sodium (Chloride) 250 mls @ 250 mls/hr IV ONETIME ONE Stop: 01/16/20 20:07 Last Admin: 01/16/20 20:27 Dose: 250 mls/hr Documented by: Cefazolin Sodium/Dextrose 2 gm (/ Premix) 50 mls @ 100 mls/hr IV ONETIME ONE Stop: 01/16/20 22:23 Last Admin: 01/16/20 23:10 Dose: 100 mls/hr Documented by: Ferric Sodium Gluconate Complex 250 mg/ Sodium Chloride 120 mls @ 60 mls/hr IV ONETIME ONE Stop: 01/18/20 12:59 Last Admin: 01/18/20 10:44 Dose: 60 mls/hr Documented by: Vancomycin HCl 2 gm/ Sodium (Chloride) 500 mls @ 250 mls/hr IV Q12H [facility] Last Admin: 01/18/20 14:54 Dose: Not Given Documented by: Vancomycin HCl 1 gm/Vancomycin HCl 500 mg/ Sodium Chloride 500 mls @ 333 mls/hr IV Q12H [facility] Last Admin: 01/18/20 14:53 Dose: Not Given Documented by: Vancomycin HCl 1 gm/Vancomycin HCl 500 mg/ Sodium Chloride 500 mls @ 333 mls/hr IV Q12H [facility] Last Admin: 01/19/20 01:19 Dose: 333 mls/hr Documented by: Lidocaine HCl (Xylocaine 1%) 10 ml INJECT ONETIME ONE Stop: 01/18/20 13:02 Last Admin: 01/18/20 13:25 Dose: 10 ml Documented by: Magnesium Hydroxide (Milk Of Magnesia) 30 ml PO ONETIME ONE Stop: 01/19/20 06:01 Morphine Sulfate (Morphine) 2 mg IVPUSH Q4H PRN PRN Reason: Pain Non-Formulary Medication (Melatonin [Melatonin]) 5 mg PO BEDTIME PRN PRN Reason: Insomnia - Exam General: Alert, Oriented HEENT: Pupils Equal, Mucous Membr. Moist/[place] Neck: Supple Lungs: Clear to Auscultation, Normal Respiratory Effort Cardiovascular: Regular Rate, Regular Rhythm GI/Abdominal Exam: Normal Bowel Sounds, Soft, Non-Tender, No Distention Extremities: Normal Inspection, Pedal Edema (2-3+ pitting edema lower extremities bilaterally), Redness (Improved redness bilaterally. Less tender to palpation.) Skin: Warm, Dry, Intact Neurological: No New Focal Deficit Psy/Mental Status: Alert, Normal Affect, Normal Mood Sepsis Event Note - Evaluation Sepsis Screening Result: No Definite Risk - Focused Exam Vital Signs: Vital Signs Temp Pulse Resp BP Pulse Ox 01/19/20 08:07 91 130/64 01/19/20 08:05 98.2 F 91 18 130/64 92 L 01/19/20 03:45 97.9 F 108 H 16 148/98 H 88 L - Problem List & Annotations (1) Cellulitis SNOMED Code(s): 381921374 Code(s): L03.90 - CELLULITIS, UNSPECIFIED Status: Acute Current Visit: Yes Qualifiers: Site of cellulitis: extremity Site of cellulitis of extremity: lower extremity Laterality: unspecified laterality Qualified Code(s): L03.119 - Cellulitis of unspecified part of limb (2) Chronic back pain SNOMED Code(s): 298448109 Code(s): M54.9 - DORSALGIA, UNSPECIFIED; G89.29 - OTHER CHRONIC PAIN Status: Acute Current Visit: Yes (3) Diabetes mellitus SNOMED Code(s): 01752439 Code(s): E11.9 - TYPE 2 DIABETES MELLITUS WITHOUT COMPLICATIONS Status: Acute Current Visit: Yes (4) Visual hallucination SNOMED Code(s): 50011105 Code(s): R44.1 - VISUAL HALLUCINATIONS Status: Acute Current Visit: Yes (5) COPD (chronic obstructive pulmonary disease) SNOMED Code(s): 63163438 Code(s): J44.9 - CHRONIC OBSTRUCTIVE PULMONARY DISEASE, UNSPECIFIED Status: Acute Current Visit: Yes (6) Hypertension SNOMED Code(s): 75789540 Code(s): I10 - ESSENTIAL (PRIMARY) HYPERTENSION Status: Acute Current Visit: Yes (7) 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) SNOMED Code(s): 04235782033723533 Code(s): I69.311 - MEMORY DEFICIT FOLLOWING CEREBRAL INFARCTION Status: Acute Current Visit: Yes - Problem List Review Problem List Initiated/Reviewed/Updated: Yes - My Orders Last 24 Hours: My Active Orders 01/18/20 10:34 Blood Glucose Check, Bedside [RC] QIDACANDBED 01/18/20 11:49 Consult to Physician [CONS] Routine 01/19/20 03:30 OCCULT BLOOD SCREEN [OP] Routine - Plan Plan:: ASSESSMENT 01/17/2020 Brought in via EMS for shortness of breath, altered mental status and fever Part of [facility] program raise concerns about patient independence Noted confused and to have erythema and edema of bilateral lower extremities Reports mild shortness of breath Denied cough, chest pain, abdominal pain, nausea or vomiting Does not meet criteria for sepsis On physical exam Vital signs on admission - BP 145/74 (94); HR 109x'; T 99.2; SatO2 88% on RA - Placed on 2.5L NC which improved O2 to 94% Admission lab results - CBC: WBC 19.9 (N 85.8%), Hb 11.4, Hct 39.9, Plt 343 - Chemistry: Na 138, K 3.7, Cl 99, CO2 34, BUN 23, Cr 1.4, GFR 51, Glu 161, Ca 8.9 - LFTs within normal limits - Total protein 7.2, albumin 3.3 - ABGs on 32%: 7.42/51.8/89/32.9/98.1 - DD, troponin, lactic acid and BNP negative - Inflammation: CRP 9, LDH 185 - COVID negative - MRSA negative DVT ruled out with a negative D-dimer By vancomycin initiated to cover MRSA, however MRSA PCR is negative During my interrogation patient commented about having "little children my house that behave like aliens", stating these people are being boarded at his house -These sound like hallucinations, will attempt to confirm living situation with [facility] 01/18/2020 Vital signs stable. Afebrile. Pulse ox in the low 90s off room air. Staph likely growing out of wound culture, therefore its restart vancomycin. Dr. Magana in psychiatry saw him via telemedicine and recommendations given to the nursing. Recommend starting Seroquel. Cellulitis improving. Right great toe possible abscess. Consult surgery. 01/19/2020 Vital signs continue to be stable with heart rate chronically above 90 Symptomatically and clinically patient's cellulitis continues to improve. Wound culture grew out MSSA WBC down to 13.6 C-reactive protein increased to 26.8 Procalcitonin Drawn on 01/17/2020 was 0.75. Repeat ordered today. Dr. Gutierres incised and drained abscess on right great toe PLAN BL LE cellulitis Contusion of foot Multiple open wounds in BL LE Chronic dependent edema - Continue home furosemide - Continue Ancef -Stop vancomycin - Procalcitonin every 48h -Repeat CBC, BMP, mag, and CRP in the morning -Continue following blood cultures- Diabetes mellitus, unknown HbA1c - Hold home sitagliptin - Accuchecks before meals and at bedtime - Hypoglycemia protocol - Levemir 10 units at bedtime -Start sliding scale insulin Hypertension - Continue home metoprolol - PRN Hydralazine Acute on chronic kidney disease -resolved Metabolic alkalosis Chronic hypokalemia Normocytic hypochromic anemia - Monitor urine output - Renally dosed medications - Repeat labs as needed Atrial fibrillation with rapid ventricular response History of deep vein thrombosis - Continue home rivaroxaban and metoprolol Coronary artery disease s/p stent x1 Left carotid artery stenosis 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 Dyslipidemia - Request prior echocardiogram - Continue home ezetimibe Altered mental status H/O psychosis Visual hallucinations - Continue home Lamotrigine, Sertraline and Pimozide -Started on Seroquel 50 mg at night per psychiatry Chronic obstructive pulmonary disease Obstructive sleep apnea Acute on chronic respiratory failure with hypoxemia Respiratory acidosis - Continue montelukast - PRN DuoNebs - Goal O2 > 88% - RT assess and treat Chronic back pain - Continue home Flexeril and Tylenol Chronic gout - Continue home allopurinol - Uric acid level Hypothyroidism - Continue home levothyroxine Chronic migraines - Continue home lamotrigine Morbid obesity - Dietary consult and follow up GERD - Continue home Famotidine Benign prostate hyperplasia - Continue home Tamsulosin PROPHYLAXIS DVT- continue home Xarelto GI- continue home Famotidine CODE STATUS: FULL CODE DISPOSITION: Patient will be admitted to the med surge unit for IV antibiotics and O2 supplementation.
--- NOTE | 2020-01-19 13:07 | CONS ---
CONSULTING PHYSICIAN: Jhony Magana MD DATE OF CONSULTATION: 01/18/2020 Site where the services are provided is [facility] in [place], [place]. Site where the services are provided from offices in [facility]. Length of service for this 60-minute inpatient telemedicine event is 60 minutes. IDENTIFICATION: The patient is a 64-year-old male who is admitted to the [facility] in [place], [place]. He is seen for psychiatric consultation per the request of Dr. Erazo and her treatment team. CHIEF COMPLAINT: "My foot had been swollen and it has been getting worse." HISTORY OF PRESENT ILLNESS: The patient is a 64-year-old male who was admitted to the [facility] Med/Surg unit in [place], [place], on 01/15 secondary to symptoms of worsening cellulitis in his lower extremities, shortness of breath, and fever. He was brought in by ambulance and after admission was being medically treated and started having complaints of hallucinations. The patient who was alert and oriented x3 states that he struggles with poor short-term memory that he attributes to a stroke that he had back in 1983 and some cardiac issues, but he states that while that is "kind of bad," he can remember the big things, and he states that besides the physical issues "everything has been good except for me seeing things. Seeing little kids and their parents over my place." He states that this started about "3 weeks ago," and because of that, he has not been able to sleep either, although he states that generally he is maintaining good energy throughout the day. He states that he has been taking some medications from a psychiatrist, "but that psychiatrist got another job and left town," and he states he has not been taking the psychiatric medications, and he says that he has not really been sure why he is on psychiatric medications in the first place because he does feel that his mood is generally good, although he does note that in the past he has had a tendency to have "quick hues." He denies any illicit substance use or excessive alcohol use complicating his clinical picture. 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 MEDICATIONS: At time of admission: 1. Orap 2 mg b.i.d., although the patient is unclear whether he has been taking this medication. 2. Zoloft 100 mg daily. Again, the patient is unclear if he has been taking this medication. 3. Lamictal 25 mg b.i.d., which has been started on the unit since his admission. ALLERGIES: No known drug allergies. PAST MEDICAL HISTORY: 1. Cellulitis bilaterally in lower extremities with right leg being worse. 2. Status post stroke in the past in 1983. 3. Status post cardiac issues. 4. Status post pain issues in back. REVIEW OF SYSTEMS: Aside from musculoskeletal, neuro, and cardiovascular, all other major organ- systems are negative at this point in time for acute difficulties or complications. FAMILY PSYCHIATRIC AND CD HISTORY: The patient is denying that he had [id number] who committed suicide in the past. PAST PSYCHIATRIC AND CD HISTORY: The patient denies any previous psychiatric hospitalizations or chemical dependency treatments. 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 He is a nontobacco user. Denies any previous suicide attempts, self-injurious behaviors, or eating disorder history. Cannot state what his past psychiatric diagnosis is. PAST PSYCHIATRIC MEDICATION HISTORY: Again, most recently he has been on oral as well as Zoloft prior to admission, these medications have not been started on the unit. He has been continued on lamotrigine 25 mg twice a day and it appears that he does not have a psychiatrist right now per his report. SOCIAL HISTORY: The patient was born and raised in [place], [place]. He is the 7th of 8 siblings, having 3 brothers and 4 sisters. The patient's parents were throughout his childhood and adolescence. Father was a press box custodian at [employer]. Mother worked at a local [employer] agency. The patient's highest level of education is high school diploma. 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 He was x1 for 1-1/2 years, for many years, not involved in any current relationships. He does not have any biological children. He lives by himself in [place], [place]. Does get support from his siblings who live in the area. He has 2 siblings living in [place], 2 in [place], 1 in [facility], 1 in [place], [place], and another who is . He denies any prior service, any legal difficulties, and he was raised Gnosticism in terms of his noemy formation. He enjoys fishing and car racing in his spare time with his brother who lives out in [place]. MENTAL STATUS EXAM: The patient is a 64-year-old heavily bearded white male in no apparent distress. Speech is of regular rate and rhythm. The patient is cognitively oriented x3. Psychomotor activity is within normal limits. There is no abnormal motor movements or tics observed. Gait and station are not observed in this patient. He is seated for the majority of the interview, although he does transition from the bed to the chair for the interview and does appear to have a stable gait when he transitions from bed to chair for the interview. Mood is "good." Affect is cooperative overall for the purposes of the inpatient consult. There is no behavioral or stated evidence of acute suicidal or homicidal ideation. The patient is reporting episodes of visual hallucinations, particularly at home. He is denying the hallucinatory experience while being in the hospital thus far. Thought processes appear organized with some possible minimal thought blocking. However, there are no acute manic symptoms or loose associations evident. Judgment and insight appear unimpaired at this point in time. Motivation for help appears good. VITALS: 130/60, 99, 18, and 98.6 degrees. IMPRESSION: [place] I: 1. F29. 2. Rule out bipolar affective disease, mixed type. 3. Rule out schizophrenia, paranoid type. 4. Rule out major depressive disorder. 5. Suspected cognitive changes secondary to stroke. [place] II: None. [place] III: 1. Cellulitis, bilateral, in lower extremities with right leg being worse. 2. Status post stroke in the past in 1983. 3. History of cardiac issues in the past. 4. Status post back issues. [place] IV: Severe. [place] V: 55 to 60. PLAN: 1. Begin Seroquel 50 mg at bedtime while on unit to help prevent psychotic or paranoid symptoms as well as to help with sleep initiation and maintenance. This patient has complained of very poor sleep right now as well as for anxiety reduction and mood stability. 2. Continue Lamictal 25 mg b.i.d. for mood stability and any seizure prophylaxis, although the patient is not reporting any history of seizures. 3. Would hold off on giving the pimozide at this point in time that was prescribed at home as the patient has not been taking this medication and this medication is a first generation antipsychotic and is prone to giving people more EPSE or akathisia as potential side effects than the Seroquel medication, and unless treatment team receives some collateral information regarding why this medication was prescribed such as a diagnosis of Tourette's, it appears that Seroquel medication might be a better fit for the patient. 4. We will also hold off on prescribing the Zoloft medication while the patient is on the unit as his mood does not appear to be displaying any symptoms of clinical depression at this point in time and adding that might actually exacerbate mood instability as there is an underlying bipolar disorder. 5. Recommend the patient to follow up with Outpatient Psychiatry when the patient is medically stabilized and transition him back to the community to assess his overall function and efficacy of his newly adjusted and initiated psychiatric medication regimen. 6. The patient is apprised of benefits and side effects of his newly initiated and adjusted psychiatric medication regimen. He acknowledges understanding these facts. He has no further questions by the end of the interview session. 7. If the patient is unable to be transitioned independently back to the community, then we would recommend a more structured setting to help him once he is medically stabilized as the patient had mentioned that he had been transitioned to prison facilities in the past to help with gaining strength and for assisting with activities of day-to-day living. 8. We will continue to follow up with the patient on an as-needed basis while he remains on the inpatient Med/Surg unit at [facility] in [place], [place]. 9. We will follow up sooner if any complications in the interim. 10.Crisis plan is in place. MMODAL /[id number]
[2020-01-19] MEDS: Rivaroxaban 10 MG Tab PO SCH (17:19)
[2020-01-19] MEDS ORDERED: guaiFENesin/Dextromethorphan 100-10 MG/5 ML Soln 5 ML Cup PO PRN (19:53)
[2020-01-19] MEDS: Melatonin 3 MG Tab PO PRN (21:00)
[2020-01-19] MEDS: QUEtiapine 25 MG Tab PO SCH (21:00)
[2020-01-19] MEDS: Montelukast 10 MG Tab PO SCH (21:00)
[2020-01-19] MEDS: Sennosides 8.6 MG Tab PO SCH (21:00)
[2020-01-19] MEDS: Tamsulosin 0.4 MG Cap.ER PO SCH (21:00)
[2020-01-19] MEDS: Insulin Glarg,Human.Rec.Analog 100 Unit/ML SUBCUT SCH (21:41)
[2020-01-20] MEDS: Acetaminophen/Codeine 300-30 MG Tab PO PRN ×2 (01:43→11:29)
[2020-01-20 03:20] VITALS: PULSE 102
[2020-01-20] MEDS: ceFAZolin 2 GM in Premix Bag 1 BAG IV SCH (05:48)
[2020-01-20 07:33] VITALS: BP 146/74
[2020-01-20] MEDS: Metoprolol Succinate 50 MG Tab.ER PO SCH (08:32)
[2020-01-20] MEDS: Sertraline 50 MG Tab PO SCH (08:33)
[2020-01-20] MEDS: Allopurinol 100 MG Tab PO SCH (08:34)
[2020-01-20] MEDS: Cyclobenzaprine 10 MG Tab PO SCH (08:35)
[2020-01-20] MEDS: Thiamine 100 MG Tab PO SCH (08:36)
[2020-01-20] MEDS: Famotidine 20 MG Tab PO SCH (08:36)
[2020-01-20] MEDS: Furosemide 40 MG Tab PO SCH (08:36)
[2020-01-20] MEDS: PIMOZIDE PO SCH (08:39)
--- NOTE | 2020-01-20 08:53 | PCM.PN ---
- General Info Date of Service: 01/20/20 Admission Dx/Problem (Free Text): Admission Diagnosis/Problem Admission Diagnosis/Problem Cellulitis - Patient Data Vitals - Most Recent: Last Vital Signs Temp 97.9 F 01/20/20 07:27 Pulse 102 H 01/20/20 08:32 Resp 16 01/20/20 07:33 BP 146/74 H 01/20/20 08:32 Pulse Ox 91 L 01/20/20 07:27 Weight - Most Recent: 300 lb I&O - Last 24 Hours: Intake & Output 01/19/20 01/20/20 01/20/20 22:59 06:59 14:59 Intake Total 750 1050 Output Total 1000 500 Balance -250 550 Lab Results Last 24 Hours: Laboratory Results - last 24 hr 01/19/20 01/19/20 01/19/20 Range/Units 10:02 10:02 11:56 WBC 13.56 H (4.23-9.07) K/mm3 RBC 5.11 (4.63-6.08) M/mm3 Hgb 12.1 L (13.7-17.5) gm/dl Hct 41.6 (40.1-51.0) % MCV 81.4 (79.0-92.2) fl MCH 23.7 L (25.7-32.2) pg MCHC 29.1 L (32.2-35.5) g/dl RDW Std Deviation 52.8 H (35.1-43.9) fL Plt Count 308 (163-337) K/mm3 MPV 10.9 (9.4-12.3) fl Neut % (Auto) 82.9 H (34.0-67.9) % Lymph % (Auto) 8.0 L (21.8-53.1) % [place] % (Auto) 6.7 (5.3-12.2) % Eos % (Auto) 1.3 (0.8-7.0) Baso % (Auto) 0.5 (0.1-1.2) % Neut # (Auto) 11.25 H (1.78-5.38) K/mm3 Lymph # (Auto) 1.08 L (1.32-3.57) K/mm3 [place] # (Auto) 0.91 H (0.30-0.82) K/mm3 Eos # (Auto) 0.17 (0.04-0.54) K/mm3 Baso # (Auto) 0.07 (0.01-0.08) K/mm3 Manual Slide Review Abnormal smear Sodium 139 (136-145) mEq/L Potassium 3.8 (3.5-5.1) mEq/L Chloride 98 (98-107) mEq/L Carbon Dioxide 33 H (21-32) mEq/L Anion Gap 11.8 (5-15) BUN 21 H (7-18) mg/dL Creatinine 1.1 (0.7-1.3) mg/dL Est Cr Clr Drug Dosing 74.46 mL/min Estimated GFR (MDRD) > 60 (>60) mL/min BUN/Creatinine Ratio 19.1 H (14-18) Glucose 155 H (80-115) mg/dL POC Glucose 164 H (80-115) mg/dL Calcium 9.6 (8.5-10.1) mg/dL Magnesium 2.0 (1.8-2.4) mg/dl Total Bilirubin 0.3 (0.2-1.0) mg/dL AST 14 L (15-37) U/L ALT 19 (16-63) U/L Alkaline Phosphatase 85 (46-116) U/L C-Reactive Protein 26.8 H* (<1.0) mg/dL Total Protein 8.1 (6.4-8.2) g/dl Albumin 3.1 L (3.4-5.0) g/dl Globulin 5.0 gm/dL Albumin/Globulin Ratio 0.6 L (1-2) 01/19/20 01/19/20 01/20/20 Range/Units 16:58 21:17 04:45 WBC 12.49 H (4.23-9.07) K/mm3 RBC 4.82 (4.63-6.08) M/mm3 Hgb 11.2 L (13.7-17.5) gm/dl Hct 39.0 L (40.1-51.0) % MCV 80.9 (79.0-92.2) fl MCH 23.2 L (25.7-32.2) pg MCHC 28.7 L (32.2-35.5) g/dl RDW Std Deviation 51.7 H (35.1-43.9) fL Plt Count 267 (163-337) K/mm3 MPV 11.1 (9.4-12.3) fl Neut % (Auto) 75.6 H (34.0-67.9) % Lymph % (Auto) 9.7 L (21.8-53.1) % [place] % (Auto) 10.6 (5.3-12.2) % Eos % (Auto) 2.4 (0.8-7.0) Baso % (Auto) 0.9 (0.1-1.2) % Neut # (Auto) 9.44 H (1.78-5.38) K/mm3 Lymph # (Auto) 1.21 L (1.32-3.57) K/mm3 [place] # (Auto) 1.33 H (0.30-0.82) K/mm3 Eos # (Auto) 0.30 (0.04-0.54) K/mm3 Baso # (Auto) 0.11 H (0.01-0.08) K/mm3 Manual Slide Review Abnormal smear Sodium (136-145) mEq/L Potassium (3.5-5.1) mEq/L Chloride (98-107) mEq/L Carbon Dioxide (21-32) mEq/L Anion Gap (5-15) BUN (7-18) mg/dL Creatinine (0.7-1.3) mg/dL Est Cr Clr Drug Dosing mL/min Estimated GFR (MDRD) (>60) mL/min BUN/Creatinine Ratio (14-18) Glucose (80-115) mg/dL POC Glucose 151 H 188 H (80-115) mg/dL Calcium (8.5-10.1) mg/dL Magnesium (1.8-2.4) mg/dl Total Bilirubin (0.2-1.0) mg/dL AST (15-37) U/L ALT (16-63) U/L Alkaline Phosphatase (46-116) U/L C-Reactive Protein (<1.0) mg/dL Total Protein (6.4-8.2) g/dl Albumin (3.4-5.0) g/dl Globulin gm/dL Albumin/Globulin Ratio (1-2) 01/20/20 Range/Units 04:45 WBC (4.23-9.07) K/mm3 RBC (4.63-6.08) M/mm3 Hgb (13.7-17.5) gm/dl Hct (40.1-51.0) % MCV (79.0-92.2) fl MCH (25.7-32.2) pg MCHC (32.2-35.5) g/dl RDW Std Deviation (35.1-43.9) fL Plt Count (163-337) K/mm3 MPV (9.4-12.3) fl Neut % (Auto) (34.0-67.9) % Lymph % (Auto) (21.8-53.1) % [place] % (Auto) (5.3-12.2) % Eos % (Auto) (0.8-7.0) Baso % (Auto) (0.1-1.2) % Neut # (Auto) (1.78-5.38) K/mm3 Lymph # (Auto) (1.32-3.57) K/mm3 [place] # (Auto) (0.30-0.82) K/mm3 Eos # (Auto) (0.04-0.54) K/mm3 Baso # (Auto) (0.01-0.08) K/mm3 Manual Slide Review Sodium 137 (136-145) mEq/L Potassium 3.9 (3.5-5.1) mEq/L Chloride 99 (98-107) mEq/L Carbon Dioxide 27 (21-32) mEq/L Anion Gap 14.9 (5-15) BUN 23 H (7-18) mg/dL Creatinine 1.1 (0.7-1.3) mg/dL Est Cr Clr Drug Dosing 74.46 mL/min Estimated GFR (MDRD) > 60 (>60) mL/min BUN/Creatinine Ratio 20.9 H (14-18) Glucose 144 H (80-115) mg/dL POC Glucose (80-115) mg/dL Calcium 9.0 (8.5-10.1) mg/dL Magnesium 1.8 (1.8-2.4) mg/dl Total Bilirubin (0.2-1.0) mg/dL AST (15-37) U/L ALT (16-63) U/L Alkaline Phosphatase (46-116) U/L C-Reactive Protein 19.2 H* (<1.0) mg/dL Total Protein (6.4-8.2) g/dl Albumin (3.4-5.0) g/dl Globulin gm/dL Albumin/Globulin Ratio (1-2) [place] Results Last 24 Hours: Microbiology 01/16/20 19:50 Aerobic Blood Culture - Preliminary Blood - Venous - Lab Draw NO GROWTH AFTER 3 DAYS Anaerobic Blood Culture - Preliminary NO GROWTH AFTER 3 DAYS 01/16/20 19:45 Aerobic Blood Culture - Preliminary Blood - Venous NO GROWTH AFTER 3 DAYS Anaerobic Blood Culture - Preliminary NO GROWTH AFTER 3 DAYS 01/17/20 09:15 Wound Culture - Final Leg, Left Staphylococcus Aureus 01/19/20 03:30 Occult Blood - Preliminary Stool / Feces Med Orders - Current: Current Medications Acetaminophen (Tylenol) 650 mg PO Q4H PRN PRN Reason: Pain (Mild 1-3)/fever Last Admin: 01/20/20 05:49 Dose: 650 mg Documented by: Acetaminophen/Codeine Phosphate (Tylenol With Codeine No.3 300mg/30mg) 2 tab PO Q6H PRN PRN Reason: Pain Last Admin: 01/20/20 01:43 Dose: 1 tab Documented by: Allopurinol (Zyloprim) 100 mg PO DAILY [facility] Last Admin: 01/20/20 08:34 Dose: 100 mg Documented by: Cyclobenzaprine HCl (Flexeril) 10 mg PO BID [facility] Last Admin: 01/20/20 08:35 Dose: 10 mg Documented by: Dextrose/Water (Dextrose 50% In Water) 50 ml IVPUSH ASDIRECTED PRN PRN Reason: Hypoglycemia Famotidine (Pepcid) 20 mg PO BID [facility] Last Admin: 01/20/20 08:36 Dose: 20 mg Documented by: Furosemide (Lasix) 40 mg PO DAILY [facility] Last Admin: 01/20/20 08:36 Dose: 40 mg Documented by: Guaifenesin/Phenylephrine HCl (Robitussin Dm) 10 ml PO QID PRN PRN Reason: Cough Last Admin: 01/19/20 20:58 Dose: 10 ml Documented by: Cefazolin Sodium/Dextrose 2 gm (/ Premix) 50 mls @ 100 mls/hr IV Q8H [facility] Last Admin: 01/20/20 05:48 Dose: 100 mls/hr Documented by: Insulin Glargine (Lantus) 10 unit SUBCUT BEDTIME [facility] Last Admin: 01/19/20 21:41 Dose: 10 units Documented by: Lamotrigine (Lamotrigine) 25 mg PO BID [facility] Last Admin: 01/20/20 08:34 Dose: 25 mg Documented by: Melatonin (Melatonin) 6 mg PO BEDTIME PRN PRN Reason: Insomnia Last Admin: 01/19/20 21:00 Dose: 6 mg Documented by: Metoprolol Succinate (Toprol Xl) 50 mg PO QAM [facility] Last Admin: 01/20/20 08:32 Dose: 50 mg Documented by: Montelukast Sodium (Singulair) 10 mg PO BEDTIME [facility] Last Admin: 01/19/20 21:00 Dose: 10 mg Documented by: Morphine Sulfate (Morphine) 2 mg IVPUSH Q4H PRN PRN Reason: Pain (severe 7-10) Ondansetron HCl (Zofran) 4 mg IV Q6H PRN PRN Reason: Nausea/Vomiting Pimozide 2 Mg 0 each PO BID [facility] Last Admin: 01/20/20 08:39 Dose: Not Given Documented by: Quetiapine Fumarate (Seroquel) 50 mg PO BEDTIME [facility] Last Admin: 01/19/20 21:00 Dose: 50 mg Documented by: Rivaroxaban (Xarelto) 20 mg PO WITHDINNER [facility] Last Admin: 01/19/20 17:19 Dose: 20 mg Documented by: Senna (Senna) 8.6 mg PO BEDTIME [facility] Last Admin: 01/19/20 21:00 Dose: 8.6 mg Documented by: Sertraline HCl (Zoloft) 100 mg PO DAILY [facility] Last Admin: 01/20/20 08:33 Dose: 100 mg Documented by: Sodium Chloride (Saline Flush) 10 ml FLUSH ASDIRECTED PRN PRN Reason: Keep Vein Open Last Admin: 01/16/20 20:28 Dose: 10 ml Documented by: Tamsulosin HCl (Flomax) 0.4 mg PO BEDTIME [facility] Last Admin: 01/19/20 21:00 Dose: 0.4 mg Documented by: Thiamine HCl (Vitamin B-1) 100 mg PO DAILY [facility] Last Admin: 01/20/20 08:36 Dose: 100 mg Documented by: Discontinued Medications Vancomycin HCl 2 gm/ Sodium (Chloride) 250 mls @ 250 mls/hr IV ONETIME ONE Stop: 01/16/20 20:07 Last Admin: 01/16/20 20:27 Dose: 250 mls/hr Documented by: Cefazolin Sodium/Dextrose 2 gm (/ Premix) 50 mls @ 100 mls/hr IV ONETIME ONE Stop: 01/16/20 22:23 Last Admin: 01/16/20 23:10 Dose: 100 mls/hr Documented by: Ferric Sodium Gluconate Complex 250 mg/ Sodium Chloride 120 mls @ 60 mls/hr IV ONETIME ONE Stop: 01/18/20 12:59 Last Admin: 01/18/20 10:44 Dose: 60 mls/hr Documented by: Vancomycin HCl 2 gm/ Sodium (Chloride) 500 mls @ 250 mls/hr IV Q12H [facility] Last Admin: 01/18/20 14:54 Dose: Not Given Documented by: Vancomycin HCl 1 gm/Vancomycin HCl 500 mg/ Sodium Chloride 500 mls @ 333 mls/hr IV Q12H [facility] Last Admin: 01/18/20 14:53 Dose: Not Given Documented by: Vancomycin HCl 1 gm/Vancomycin HCl 500 mg/ Sodium Chloride 500 mls @ 333 mls/hr IV Q12H [facility] Last Admin: 01/19/20 01:19 Dose: 333 mls/hr Documented by: Lidocaine HCl (Xylocaine 1%) 10 ml INJECT ONETIME ONE Stop: 01/18/20 13:02 Last Admin: 01/18/20 13:25 Dose: 10 ml Documented by: Magnesium Hydroxide (Milk Of Magnesia) 30 ml PO ONETIME ONE Stop: 01/19/20 06:01 Morphine Sulfate (Morphine) 2 mg IVPUSH Q4H PRN PRN Reason: Pain Non-Formulary Medication (Melatonin [Melatonin]) 5 mg PO BEDTIME PRN PRN Reason: Insomnia Vancomycin HCl (Pharmacy To Dose - Vancomycin) 0 dose .XX ASDIRECTED PRN PRN Reason: RX TO DOSE VANCOMYCIN Sepsis Event Note - Evaluation Sepsis Screening Result: Sepsis Risk - Focused Exam Vital Signs: Vital Signs Temp Pulse Resp BP Pulse Ox 01/20/20 08:32 102 H 146/74 H 01/20/20 07:33 16 01/20/20 07:27 97.9 F 102 H 146/74 H 91 L 01/20/20 01:34 98.8 F 102 H 18 152/86 H 93 L 01/19/20 20:57 106 H 92 L - Problem List & Annotations (1) Atrial fibrillation SNOMED Code(s): 16151949 Code(s): I48.91 - UNSPECIFIED ATRIAL FIBRILLATION Status: Chronic Priority: Medium Current Visit: Yes Qualifiers: Atrial fibrillation type: paroxysmal Qualified Code(s): I48.0 - Paroxysmal atrial fibrillation (2) Acute kidney injury SNOMED Code(s): 64905985, 86129865 Code(s): N17.9 - ACUTE KIDNEY FAILURE, UNSPECIFIED Status: Resolved Priority: High Current Visit: Yes (3) Acute on chronic respiratory failure with hypoxemia SNOMED Code(s): 54023237735304744 Code(s): J96.21 - ACUTE AND CHRONIC RESPIRATORY FAILURE WITH HYPOXIA Status: Resolved Priority: High Current Visit: Yes (4) Atrial fibrillation with rapid ventricular response SNOMED Code(s): 278804615157270 Code(s): I48.91 - UNSPECIFIED ATRIAL FIBRILLATION Status: Resolved Priority: High Current Visit: Yes (5) Benign prostatic hyperplasia SNOMED Code(s): 070249599 Code(s): N40.0 - BENIGN PROSTATIC HYPERPLASIA WITHOUT LOWER URINRY TRACT SYMP Status: Chronic Priority: Low Current Visit: No Qualifiers: Lower urinary tract symptom presence: unspecified whether lower urinary tract symptoms present Qualified Code(s): N40.0 - Benign prostatic hyperplasia without lower urinary tract symptoms (6) COPD (chronic obstructive pulmonary disease) SNOMED Code(s): 12130446 Code(s): J44.9 - CHRONIC OBSTRUCTIVE PULMONARY DISEASE, UNSPECIFIED Status: Chronic Priority: Medium Current Visit: No Qualifiers: COPD type: unspecified COPD Qualified Code(s): J44.9 - Chronic obstructive pulmonary disease, unspecified (7) Carotid occlusion, left SNOMED Code(s): 545768940583796 Code(s): I65.22 - OCCLUSION AND STENOSIS OF LEFT CAROTID ARTERY Status: Chronic Priority: Medium Current Visit: No (8) Cellulitis SNOMED Code(s): 597188981 Code(s): L03.90 - CELLULITIS, UNSPECIFIED Status: Acute Priority: High Current Visit: Yes Qualifiers: Site of cellulitis: extremity Site of cellulitis of extremity: lower extremity Laterality: unspecified laterality Qualified Code(s): L03.119 - Cellulitis of unspecified part of limb (9) Chronic back pain SNOMED Code(s): 717854436 Code(s): M54.9 - DORSALGIA, UNSPECIFIED; G89.29 - OTHER CHRONIC PAIN Status: Chronic Priority: Low Current Visit: No Qualifiers: Back pain location: back pain in unspecified location Back pain laterality: unspecified Qualified Code(s): M54.9 - Dorsalgia, unspecified; G89.29 - Other chronic pain (10) Chronic migraine SNOMED Code(s): 796919781 Code(s): G43.709 - CHRONIC MIGRAINE W/O AURA, NOT INTRACTABLE, W/O STAT MIGR Status: Chronic Priority: Low Current Visit: No (11) Coronary artery disease SNOMED Code(s): 35201075 Code(s): I25.10 - ATHSCL HEART DISEASE OF [place] CORONARY ARTERY W/O ANG PCTRS Status: Chronic Priority: Low Current Visit: No Qualifiers: Coronary Disease-Associated Artery/Lesion type: unspecified vessel or lesion type [place] vs. transplanted heart: unspecified whether [place] or transplanted heart Associated angina: angina presence unspecified Qualified Code(s): I25.10 - Atherosclerotic heart disease of [place] coronary artery without angina pectoris (12) Diabetes mellitus SNOMED Code(s): 53446946 Code(s): E11.9 - TYPE 2 DIABETES MELLITUS WITHOUT COMPLICATIONS Status: Chronic Priority: Medium Current Visit: Yes Qualifiers: Diabetes mellitus type: type 2 Diabetes mellitus exterminator helper insulin use: unspecified exterminator helper insulin use status Diabetes mellitus complication status: with other specified complication Qualified Code(s): E11.69 - Type 2 diabetes mellitus with other specified complication (13) History of deep vein thrombosis SNOMED Code(s): 067852862 Code(s): Z86.718 - PERSONAL HISTORY OF OTHER VENOUS THROMBOSIS AND EMBOLISM Status: Chronic Priority: Low Current Visit: No (14) Hypertension SNOMED Code(s): 32130320 Code(s): I10 - ESSENTIAL (PRIMARY) HYPERTENSION Status: Chronic Priority: Medium Current Visit: No Qualifiers: Hypertension type: unspecified Qualified Code(s): I10 - Essential (primary) hypertension (15) Lymphopenia Status: Chronic Priority: Low Current Visit: No (16) 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) SNOMED Code(s): 41812424160283112 Code(s): I69.311 - MEMORY DEFICIT FOLLOWING CEREBRAL INFARCTION Status: Chronic Priority: Low Current Visit: No (17) Metabolic alkalosis with respiratory acidosis SNOMED Code(s): 964241690 Code(s): E87.4 - MIXED DISORDER OF ACID-BASE BALANCE Status: Resolved Priority: High Current Visit: Yes (18) Normocytic hypochromic anemia SNOMED Code(s): 77774735 Code(s): D50.9 - IRON DEFICIENCY ANEMIA, UNSPECIFIED Status: Chronic Priority: Medium Current Visit: No (19) Obstructive sleep apnea SNOMED Code(s): 03806158 Code(s): G47.33 - OBSTRUCTIVE SLEEP APNEA (ADULT) (PEDIATRIC) Status: Chronic Priority: Medium Current Visit: No (20) Poor short term memory SNOMED Code(s): 800397582 Code(s): R41.3 - OTHER AMNESIA Status: Chronic Priority: Low Current Visit: No (21) Stented coronary artery Status: Chronic Priority: Low Current Visit: No (22) Tachycardia SNOMED Code(s): 7139906 Code(s): R00.0 - TACHYCARDIA, UNSPECIFIED Status: Acute Priority: Medium Current Visit: Yes (23) Visual hallucination SNOMED Code(s): 93509737 Code(s): R44.1 - VISUAL HALLUCINATIONS Status: Chronic Priority: Medium Current Visit: Yes (24) Altered mental status SNOMED Code(s): 252660428 Code(s): R41.82 - ALTERED MENTAL STATUS, UNSPECIFIED Status: Resolved Priority: Medium Current Visit: Yes Qualifiers: Altered mental status type: somnolence Qualified Code(s): R40.0 - Somnolence (25) Carotid artery stenosis Status: Chronic Priority: Low Current Visit: No Qualifiers: Laterality: left Qualified Code(s): I65.22 - Occlusion and stenosis of left carotid artery (26) Contusion of foot SNOMED Code(s): 40136134 Code(s): S90.30XA - CONTUSION OF UNSPECIFIED FOOT, INITIAL ENCOUNTER Status: Acute Priority: Medium Current Visit: Yes (27) HLD (hyperlipidemia) SNOMED Code(s): 99674403 Code(s): E78.5 - HYPERLIPIDEMIA, UNSPECIFIED Status: Chronic Priority: Medium Current Visit: No Qualifiers: Hyperlipidemia type: unspecified Qualified Code(s): E78.5 - Hyperlipidemia, unspecified (28) CKD (chronic kidney disease) SNOMED Code(s): 444020677 Code(s): N18.9 - CHRONIC KIDNEY DISEASE, UNSPECIFIED Status: Chronic Priority: Medium Current Visit: No Qualifiers: Chronic kidney disease stage: unspecified stage Qualified Code(s): N18.9 - Chronic kidney disease, unspecified (29) GERD (gastroesophageal reflux disease) SNOMED Code(s): 410070407 Code(s): K21.9 - GASTRO-ESOPHAGEAL REFLUX DISEASE WITHOUT ESOPHAGITIS Status: Chronic Priority: Low Current Visit: No Qualifiers: Esophagitis presence: esophagitis presence not specified Qualified Code(s): K21.9 - Gastro-esophageal reflux disease without esophagitis (30) Hypokalemia SNOMED Code(s): 70694154 Code(s): E87.6 - HYPOKALEMIA Status: Chronic Priority: Low Current Visit: No Onset Date: 07/17/15 (31) Hypothyroidism SNOMED Code(s): 68661560 Code(s): E03.9 - HYPOTHYROIDISM, UNSPECIFIED Status: Chronic Priority: Low Current Visit: No Qualifiers: Hypothyroidism type: unspecified Qualified Code(s): E03.9 - Hypothyroidism, unspecified (32) Migraines SNOMED Code(s): 64429359 Code(s): G43.909 - MIGRAINE, UNSP, NOT INTRACTABLE, WITHOUT STATUS MIGRAINOSUS Status: Chronic Priority: Low Current Visit: No Qualifiers: Migraine type: unspecified Status migrainosus presence: without status migrainosus (33) Morbid obesity SNOMED Code(s): 219658812 Code(s): E66.01 - MORBID (SEVERE) OBESITY DUE TO EXCESS CALORIES Status: Chronic Priority: Medium Current Visit: No (34) Paroxysmal atrial fibrillation SNOMED Code(s): 496647322 Code(s): I48.0 - PAROXYSMAL ATRIAL FIBRILLATION Status: Chronic Priority: Medium Current Visit: No - Problem List Review Problem List Initiated/Reviewed/Updated: Yes - Assessment Assessment:: ASSESSMENT 01/17/2020 Brought in via EMS for shortness of breath, altered mental status and fever Part of [facility] program raise concerns about patient independence Noted confused and to have erythema and edema of bilateral lower extremities Reports mild shortness of breath Denied cough, chest pain, abdominal pain, nausea or vomiting Does not meet criteria for sepsis On physical exam Vital signs on admission - BP 145/74 (94); HR 109x'; T 99.2; SatO2 88% on RA - Placed on 2.5L NC which improved O2 to 94% Admission lab results - CBC: WBC 19.9 (N 85.8%), Hb 11.4, Hct 39.9, Plt 343 - Chemistry: Na 138, K 3.7, Cl 99, CO2 34, BUN 23, Cr 1.4, GFR 51, Glu 161, Ca 8.9 - LFTs within normal limits - Total protein 7.2, albumin 3.3 - ABGs on 32%: 7.42/51.8/89/32.9/98.1 - DD, troponin, lactic acid and BNP negative - Inflammation: CRP 9, LDH 185 - COVID negative - MRSA negative DVT ruled out with a negative D-dimer By vancomycin initiated to cover MRSA, however MRSA PCR is negative During my interrogation patient commented about having "little children my house that behave like aliens", stating these people are being boarded at his house -These sound like hallucinations, will attempt to confirm living situation with [facility] 01/18/2020 Vital signs stable. Afebrile. Pulse ox in the low 90s off room air. Staph likely growing out of wound culture, therefore its restart vancomycin. Dr. Magana in psychiatry saw him via telemedicine and recommendations given to the nursing. Recommend starting Seroquel. Cellulitis improving. Right great toe possible abscess. Consult surgery. 01/19/2020 Vital signs continue to be stable with heart rate chronically above 90 Symptomatically and clinically patient's cellulitis continues to improve. Wound culture grew out MSSA WBC down to 13.6 C-reactive protein increased to 26.8 Procalcitonin Drawn on 01/17/2020 was 0.75. Repeat ordered today. Dr. Gutierres incised and drained abscess on right great toe 01/20/2020 PT wound care reports wounds look good. Leave covered and can re-check in a few days VSS Improved cellulitis LABS: * WBC 12.49 * Hgb 11.2 * Neutrophils 75.6% * Glucose trend 144-188 * CRP 19.2 Awaiting repeat procalcitonin Afebrile, mildly tachycardic Likely discharge tomorrow pending continued improvement - Plan Plan:: PLAN BL LE cellulitis Contusion of foot Multiple open wounds in BL LE Chronic dependent edema - Continue home furosemide - Continue Ancef - Follow repeat procalcitonin - Continue following blood cultures Diabetes mellitus, HbA1c 7.5% - Hold home sitagliptin - Accuchecks before meals and at bedtime - Hypoglycemia protocol - Levemir 10 units at bedtime - Start sliding scale insulin Hypertension - Continue home metoprolol - PRN Hydralazine Acute on chronic kidney disease -resolved Metabolic alkalosis Chronic hypokalemia Normocytic hypochromic anemia - Monitor urine output - Renally dosed medications - Repeat labs as needed Atrial fibrillation with rapid ventricular response History of deep vein thrombosis - Continue home rivaroxaban and metoprolol Coronary artery disease s/p stent x1 Left carotid artery stenosis 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 Dyslipidemia - Request prior echocardiogram - Continue home ezetimibe Altered mental status H/O psychosis Visual hallucinations - Started on Seroquel 50 mg at night per psychiatry - Per psychiatry - D/C Zoloft and pimozide, continue Lamictal Chronic obstructive pulmonary disease Obstructive sleep apnea Acute on chronic respiratory failure with hypoxemia Respiratory acidosis - Continue montelukast - PRN DuoNebs - Goal O2 > 88% - RT assess and treat Chronic back pain - Continue home Flexeril and Tylenol Chronic gout - Continue home allopurinol Hypothyroidism - Continue home levothyroxine Chronic migraines - Continue home lamotrigine Morbid obesity - Dietary consult and follow up GERD - Continue home Famotidine Benign prostate hyperplasia - Continue home Tamsulosin PROPHYLAXIS DVT- continue home Xarelto GI- continue home Famotidine CODE STATUS: FULL CODE DISPOSITION: Patient will be admitted to the med surge unit for IV antibiotics and O2 supplementation. Likely discharge 01/21/20 pending continued improvement.
--- NOTE | 2020-01-20 11:45 | PCM.DCSUM1 ---
Discharge Summary - Hospital Course HPI Initial Comments: Patient is confused upon my evaluation but as per patient: This is a 64 year old male with extensive past medical history who comes to the ED after being told by [facility] nurse to come in for evaluation of rash on RLE and anterior LLE. About 1 week ago he started feeling like he stepped on a pebble on his right great toe, a couple of days later started noticing erythema on toe that spread to dorsum of foot He later started having purulent drainage on left barron in place where he had some carpet burn lesion from a couple of weeks ago He started complaining about symptoms to [facility] Once erythema spread more and pain got worse associated with fever for which [facility] nurse told him to come to the ED for further evaluation As per ED chart The patient presents by [facility] for shortness of breath, confusion and a fever. He is in the [facility] program. They have some concerns that he is not able to do well at home. He has redness and swelling to both legs and a low grade temp. He denies having a cough but he has low oxygen saturations. Denies chest pain. He does feel a little short of breath. He has no abdominal pain, nausea or vomiting. He is a little confused when I talk to him. Diagnosis: Stroke: No - Discharge Data Discharge Date: 01/20/20 (Admit date: ) Discharge Disposition: DC/Tfer to Other 70 Condition: Good - Referral to Home Health Primary Care Physician: PCP None - Discharge Diagnosis/Problem(s) (1) Atrial fibrillation SNOMED Code(s): 46848723 ICD Code: I48.91 - UNSPECIFIED ATRIAL FIBRILLATION Status: Chronic Priority: Medium Current Visit: Yes Qualifiers: Atrial fibrillation type: paroxysmal Qualified Code(s): I48.0 - Paroxysmal atrial fibrillation (2) Acute kidney injury SNOMED Code(s): 07568888, 18287334 ICD Code: N17.9 - ACUTE KIDNEY FAILURE, UNSPECIFIED Status: Resolved Priority: High Current Visit: Yes (3) Acute on chronic respiratory failure with hypoxemia SNOMED Code(s): 20857088703094136 ICD Code: J96.21 - ACUTE AND CHRONIC RESPIRATORY FAILURE WITH HYPOXIA Status: Resolved Priority: High Current Visit: Yes (4) Atrial fibrillation with rapid ventricular response SNOMED Code(s): 997564934026320 ICD Code: I48.91 - UNSPECIFIED ATRIAL FIBRILLATION Status: Resolved Priority: High Current Visit: Yes (5) Benign prostatic hyperplasia SNOMED Code(s): 925078967 ICD Code: N40.0 - BENIGN PROSTATIC HYPERPLASIA WITHOUT LOWER URINRY TRACT SYMP Status: Chronic Priority: Low Current Visit: No Qualifiers: Lower urinary tract symptom presence: unspecified whether lower urinary tract symptoms present Qualified Code(s): N40.0 - Benign prostatic hyperplasia without lower urinary tract symptoms (6) COPD (chronic obstructive pulmonary disease) SNOMED Code(s): 38190190 ICD Code: J44.9 - CHRONIC OBSTRUCTIVE PULMONARY DISEASE, UNSPECIFIED Status: Chronic Priority: Medium Current Visit: No Qualifiers: COPD type: unspecified COPD Qualified Code(s): J44.9 - Chronic obstructive pulmonary disease, unspecified (7) Carotid occlusion, left SNOMED Code(s): 510806572237100 ICD Code: I65.22 - OCCLUSION AND STENOSIS OF LEFT CAROTID ARTERY Status: Chronic Priority: Medium Current Visit: No (8) Cellulitis SNOMED Code(s): 512858860 ICD Code: L03.90 - CELLULITIS, UNSPECIFIED Status: Acute Priority: High Current Visit: Yes Qualifiers: Site of cellulitis: extremity Site of cellulitis of extremity: lower extremity Laterality: unspecified laterality Qualified Code(s): L03.119 - Cellulitis of unspecified part of limb (9) Chronic back pain SNOMED Code(s): 208623369 ICD Code: M54.9 - DORSALGIA, UNSPECIFIED; G89.29 - OTHER CHRONIC PAIN Status: Chronic Priority: Low Current Visit: No Qualifiers: Back pain location: back pain in unspecified location Back pain laterality: unspecified Qualified Code(s): M54.9 - Dorsalgia, unspecified; G89.29 - Other chronic pain (10) Chronic migraine SNOMED Code(s): 107857494 ICD Code: G43.709 - CHRONIC MIGRAINE W/O AURA, NOT INTRACTABLE, W/O STAT MIGR Status: Chronic Priority: Low Current Visit: No (11) Coronary artery disease SNOMED Code(s): 94348739 ICD Code: I25.10 - ATHSCL HEART DISEASE OF [place] CORONARY ARTERY W/O ANG PC TRS Status: Chronic Priority: Low Current Visit: No Qualifiers: Coronary Disease-Associated Artery/Lesion type: unspecified vessel or lesion type [place] vs. transplanted heart: unspecified whether [place] or transplanted heart Associated angina: angina presence unspecified Qualified Code(s): I25.10 - Atherosclerotic heart disease of [place] coronary artery without angina pectoris (12) Diabetes mellitus SNOMED Code(s): 37470827 ICD Code: E11.9 - TYPE 2 DIABETES MELLITUS WITHOUT COMPLICATIONS Status: Chronic Priority: Medium Current Visit: Yes Qualifiers: Diabetes mellitus type: type 2 Diabetes mellitus [employer] insulin use: unspecified [employer] insulin use status Diabetes mellitus complication status: with other specified complication Qualified Code(s): E11.69 - Type 2 diabetes mellitus with other specified complication (13) History of deep vein thrombosis SNOMED Code(s): 060278642 ICD Code: Z86.718 - PERSONAL HISTORY OF OTHER VENOUS THROMBOSIS AND EMBOLISM Status: Chronic Priority: Low Current Visit: No (14) Hypertension SNOMED Code(s): 51892011 ICD Code: I10 - ESSENTIAL (PRIMARY) HYPERTENSION Status: Chronic Priority: Medium Current Visit: No Qualifiers: Hypertension type: unspecified Qualified Code(s): I10 - Essential (primary) hypertension (15) Lymphopenia Status: Chronic Priority: Low Current Visit: No (16) 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) SNOMED Code(s): 69731747404255459 ICD Code: I69.311 - MEMORY DEFICIT FOLLOWING CEREBRAL INFARCTION Status: Chronic Priority: Low Current Visit: No (17) Metabolic alkalosis with respiratory acidosis SNOMED Code(s): 243174101 ICD Code: E87.4 - MIXED DISORDER OF ACID-BASE BALANCE Status: Resolved Priority: High Current Visit: Yes (18) Normocytic hypochromic anemia SNOMED Code(s): 22907937 ICD Code: D50.9 - IRON DEFICIENCY ANEMIA, UNSPECIFIED Status: Chronic Priority: Medium Current Visit: No (19) Obstructive sleep apnea SNOMED Code(s): 63788173 ICD Code: G47.33 - OBSTRUCTIVE SLEEP APNEA (ADULT) (PEDIATRIC) Status: Chronic Priority: Medium Current Visit: No (20) Poor short term memory SNOMED Code(s): 194458416 ICD Code: R41.3 - OTHER AMNESIA Status: Chronic Priority: Low Current Visit: No (21) Stented coronary artery Status: Chronic Priority: Low Current Visit: No (22) Tachycardia SNOMED Code(s): 2176974 ICD Code: R00.0 - TACHYCARDIA, UNSPECIFIED Status: Acute Priority: Medium Current Visit: Yes (23) Visual hallucination SNOMED Code(s): 00764186 ICD Code: R44.1 - VISUAL HALLUCINATIONS Status: Chronic Priority: Medium Current Visit: Yes (24) Altered mental status SNOMED Code(s): 795691203 ICD Code: R41.82 - ALTERED MENTAL STATUS, UNSPECIFIED Status: Resolved Priority: Medium Current Visit: Yes Qualifiers: Altered mental status type: somnolence Qualified Code(s): R40.0 - Somnolence (25) Carotid artery stenosis Status: Chronic Priority: Low Current Visit: No Qualifiers: Laterality: left Qualified Code(s): I65.22 - Occlusion and stenosis of left carotid artery (26) Contusion of foot SNOMED Code(s): 41299454 ICD Code: S90.30XA - CONTUSION OF UNSPECIFIED FOOT, INITIAL ENCOUNTER Status: Acute Priority: Medium Current Visit: Yes (27) HLD (hyperlipidemia) SNOMED Code(s): 59301021 ICD Code: E78.5 - HYPERLIPIDEMIA, UNSPECIFIED Status: Chronic Priority: Medium Current Visit: No Qualifiers: Hyperlipidemia type: unspecified Qualified Code(s): E78.5 - Hyperlipidemia, unspecified (28) CKD (chronic kidney disease) SNOMED Code(s): 331760998 ICD Code: N18.9 - CHRONIC KIDNEY DISEASE, UNSPECIFIED Status: Chronic Priority: Medium Current Visit: No Qualifiers: Chronic kidney disease stage: unspecified stage Qualified Code(s): N18.9 - Chronic kidney disease, unspecified (29) GERD (gastroesophageal reflux disease) SNOMED Code(s): 794128401 ICD Code: K21.9 - GASTRO-ESOPHAGEAL REFLUX DISEASE WITHOUT ESOPHAGITIS Status: Chronic Priority: Low Current Visit: No Qualifiers: Esophagitis presence: esophagitis presence not specified Qualified Code(s): K21.9 - Gastro-esophageal reflux disease without esophagitis (30) Hypokalemia SNOMED Code(s): 35093554 ICD Code: E87.6 - HYPOKALEMIA Status: Chronic Priority: Low Current Visit: No Onset Date: 07/17/15 (31) Hypothyroidism SNOMED Code(s): 26853110 ICD Code: E03.9 - HYPOTHYROIDISM, UNSPECIFIED Status: Chronic Priority: Low Current Visit: No Qualifiers: Hypothyroidism type: unspecified Qualified Code(s): E03.9 - Hypothyroidism, unspecified (32) Migraines SNOMED Code(s): 71720396 ICD Code: G43.909 - MIGRAINE, UNSP, NOT INTRACTABLE, WITHOUT STATUS MIGRAINOSUS Status: Chronic Priority: Low Current Visit: No Qualifiers: Migraine type: unspecified Status migrainosus presence: without status migrainosus (33) Morbid obesity SNOMED Code(s): 034061572 ICD Code: E66.01 - MORBID (SEVERE) OBESITY DUE TO EXCESS CALORIES Status: Chronic Priority: Medium Current Visit: No (34) Paroxysmal atrial fibrillation SNOMED Code(s): 694373361 ICD Code: I48.0 - PAROXYSMAL ATRIAL FIBRILLATION Status: Chronic Priority: Medium Current Visit: No - Patient Summary/Data Consults: Consultations 01/17/20 12:40 Consult to Case Management/Loading Manager [CONS] Routine Consult to Pretzel Cooker [CONS] Routine Consult to Physician [CONS] Routine OT Evaluation and Treatment [CONS] Routine PT Evaluation and Treatment [CONS] Routine Respiratory Care Assess and Treatment [CONS] Routine MANAGER MAINTENANCE Evaluation and Treatment [CONS] Routine 01/18/20 11:49 Consult to Physician [CONS] Routine 01/20/20 07:27 PT Evaluation and Treatment [CONS] Routine Labs Pending at D/C: Repeat calcitonin Recommended Follow-up Testing/Procedures: Follow-up with primary care provider within 7-10 days of discharge. -Recommend re-check CBC, CMP, and magnesium at that visit. Follow-up with psychiatry as scheduled. Hospital Course: ASSESSMENT 01/17/2020 Brought in via EMS for shortness of breath, altered mental status and fever Part of [facility] program raise concerns about patient independence Noted confused and to have erythema and edema of bilateral lower extremities Reports mild shortness of breath Denied cough, chest pain, abdominal pain, nausea or vomiting Does not meet criteria for sepsis On physical exam Vital signs on admission - BP 145/74 (94); HR 109x'; T 99.2; SatO2 88% on RA - Placed on 2.5L NC which improved O2 to 94% Admission lab results - CBC: WBC 19.9 (N 85.8%), Hb 11.4, Hct 39.9, Plt 343 - Chemistry: Na 138, K 3.7, Cl 99, CO2 34, BUN 23, Cr 1.4, GFR 51, Glu 161, Ca 8.9 - LFTs within normal limits - Total protein 7.2, albumin 3.3 - ABGs on 32%: 7.42/51.8/89/32.9/98.1 - DD, troponin, lactic acid and BNP negative - Inflammation: CRP 9, LDH 185 - COVID negative - MRSA negative DVT ruled out with a negative D-dimer By vancomycin initiated to cover MRSA, however MRSA PCR is negative During my interrogation patient commented about having "little children my house that behave like aliens", stating these people are being boarded at his house -These sound like hallucinations, will attempt to confirm living situation with [facility] 01/18/2020 Vital signs stable. Afebrile. Pulse ox in the low 90s off room air. Staph likely growing out of wound culture, therefore its restart vancomycin. Dr. Magana in psychiatry saw him via telemedicine and recommendations given to the nursing. Recommend starting Seroquel. Cellulitis improving. Right great toe possible abscess. Consult surgery. 01/19/2020 Vital signs continue to be stable with heart rate chronically above 90 Symptomatically and clinically patient's cellulitis continues to improve. Wound culture grew out MSSA WBC down to 13.6 C-reactive protein increased to 26.8 Procalcitonin Drawn on 01/17/2020 was 0.75. Repeat ordered today. Dr. Gutierres incised and drained abscess on right great toe 01/20/2020 PT wound care reports wounds look good. Leave covered and can re-check in a few days VSS Improved cellulitis LABS: * WBC 12.49 * Hgb 11.2 * Neutrophils 75.6% * Glucose trend 144-188 * CRP 19.2 Awaiting repeat procalcitonin Afebrile, mildly tachycardic Discharge today - Plan Plan:: PLAN BL LE cellulitis Contusion of foot Multiple open wounds in BL LE Chronic dependent edema - Continue home furosemide - Continue Ancef - Follow repeat procalcitonin - Continue following blood cultures Diabetes mellitus, HbA1c 7.5% - Hold home sitagliptin - Accuchecks before meals and at bedtime - Hypoglycemia protocol - Levemir 10 units at bedtime - Start sliding scale insulin Hypertension - Continue home metoprolol - PRN Hydralazine Acute on chronic kidney disease -resolved Metabolic alkalosis Chronic hypokalemia Normocytic hypochromic anemia - Monitor urine output - Renally dosed medications - Repeat labs as needed Atrial fibrillation with rapid ventricular response History of deep vein thrombosis - Continue home rivaroxaban and metoprolol Coronary artery disease s/p stent x1 Left carotid artery stenosis 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 Dyslipidemia - Request prior echocardiogram - Continue home ezetimibe Altered mental status H/O psychosis Visual hallucinations - Started on Seroquel 50 mg at night per psychiatry - Per psychiatry - D/C Zoloft and pimozide, continue Lamictal Chronic obstructive pulmonary disease Obstructive sleep apnea Acute on chronic respiratory failure with hypoxemia Respiratory acidosis - Continue montelukast - PRN DuoNebs - Goal O2 > 88% - RT assess and treat Chronic back pain - Continue home Flexeril and Tylenol Chronic gout - Continue home allopurinol Hypothyroidism - Continue home levothyroxine Chronic migraines - Continue home lamotrigine Morbid obesity - Dietary consult and follow up GERD - Continue home Famotidine Benign prostate hyperplasia - Continue home Tamsulosin PROPHYLAXIS DVT- continue home Xarelto GI- continue home Famotidine CODE STATUS: FULL CODE DISPOSITION: Patient will be admitted to the [facility] for IV antibiotics and O2 supplementation. Gordon was admitted to the hospital floor for bilateral lower extremity cellulitis. Wound cultures were obtained and showed MSSA. He was initially started on vancomycin and Ancef but switch to just Ancef once wound cultures return. Patient was noted to have worsening hallucinations and tele-psychiatry consult with Dr. Magana was performed. Dr. Magana recommended starting Seroquel 50 mg at bedtime and continuing 25 mg twice daily Lamictal. He recommended sto pping Zoloft and pimozide. David Lugo, general surgeon, was consulted and did do an I&D on the patient's medial right great toe. Recommended wet-to-dry dressing changes here. PT wound care did debride patient's legs and recommended continuing dressing for a few more days and then checking wounds. She stated that it is likely patient may not need dressings after this timeframe on shins. Otherwise patient's blood cultures remain negative x3 days. CRP and WBC continue to trend downward. Patient's reports pain that is manageable and greatly improved. He has been up ambulating without difficulty. Hemoglobin A1c was checked and was 7.5. Patient's procalcitonin was rechecked and this lab result is still pending however given patient's improved symptoms and improved labs it is unlikely that this will be elevated. Patient will be switched to 500 mg every 8 hour Keflex for a total of 14 days of treatment. He will also be sent home on Tylenol 3 as needed for pain. Seroquel prescription was sent as per Dr. Magana's recommendations and Zoloft and pimozide were discontinued at discharge. Other home medications were continued. He should follow-up with his primary care provider within 5 to 7 days of discharge, sooner if needed. Recommend recheck CBC, CMP, and magnesium at that appointment. He should follow-up with outpatient psychiatry as scheduled. He may benefit from wound care pending how his legs look at follow-up appointment. He was advised to return to the emergency room or contact his primary care provider should symptoms return or worsen. PT is recommending continued outpatient PT after discharge. Discharged home today. - Patient Instructions Diet: Diabetic Diet Activity: As Tolerated Driving: Do Not Drive Notify Provider of: Fever, Increased Pain, Nausea and/or Vomiting Other/Special Instructions: Follow-up with primary care provider within 7-10 days of discharge, sooner if needed. Continue woundcare as directed by nursing. Follow-up with outpatient psychiatry as scheduled. You were prescribed antibiotics for your leg infection. Be sure to take all of this until you have completed treatment, even if you feel 100% better. Your medications were changed. Be sure to follow the new medication dosing. Should symptoms return or worsen, contact primary care provider or return to the Emergency Department. - Discharge Plan *PRESCRIPTION DRUG MONITORING PROGRAM REVIEWED*: No *COPY OF PRESCRIPTION DRUG MONITORING REPORT IN PATIENT BERT: No Prescriptions/Med Rec: cephALEXin [Keflex] 500 mg PO Q8H #30 cap QUEtiapine [SEROquel] 50 mg PO BEDTIME #20 tablet Acetaminophen/Codeine [Tylenol with Codeine No.3 300MG/30MG] 2 tab PO Q8H PRN #10 tablet PRN Reason: Pain Home Medications: Home Meds allopurinoL [Zyloprim] 100 mg PO DAILY 09/16/13 [History] Rivaroxaban [Xarelto] 20 mg PO DAILY #30 tablet 07/21/15 [Rx] Cyclobenzaprine [Flexeril] 10 mg PO BID 12/18/16 [History] Ezetimibe 10 mg PO BEDTIME 02/18/18 [History] Calcium Carbonate/Vitamin D3 [Calcium 600 + Vit D 400 Softgl] 1 tab PO BID 03/10/19 [History] Melatonin 5 mg PO BEDTIME PRN 03/10/19 [History] Acetaminophen [Tylenol Arthritis Pain] 650 mg PO BID 01/17/20 [History] Famotidine 20 mg PO BID 01/17/20 [History] Furosemide 40 mg PO DAILY 01/17/20 [History] Metoprolol Succinate [Toprol XL 50mg] 50 mg PO QAM 01/17/20 [History] Montelukast [Singulair] 10 mg PO BEDTIME 01/17/20 [History] Multivitamin [Tab-A-Kira] 1 tab PO DAILY 01/17/20 [History] Non-Formulary Medication [NF Drug] 500 mg PO DAILY 01/17/20 [History] Sennosides [Senna] 8.6 mg PO BEDTIME 01/17/20 [History] Tamsulosin [Flomax] 0.4 mg PO BEDTIME 01/17/20 [History] Thiamine HCl [Vitamin B-1] 100 mg PO DAILY 01/17/20 [History] Thiamine HCl [Vitamin B-1] 100 mg PO DAILY 01/17/20 [History] lamoTRIgine [Lamotrigine] 25 mg PO BID 01/17/20 [History] sitaGLIPtin Phosphate [Januvia] 50 mg PO DAILY 01/17/20 [History] Acetaminophen/Codeine [Tylenol with Codeine No.3 300MG/30MG] 2 tab PO Q8H PRN #10 tablet 01/20/20 [Rx] QUEtiapine [SEROquel] 50 mg PO BEDTIME #20 tablet 01/20/20 [Rx] cephALEXin [Keflex] 500 mg PO Q8H #30 cap 01/20/20 [Rx] Oxygen Therapy Mode: Room Air Patient Handouts: Cellulitis, Adult, Sepsis, Diagnosis, Adult Referrals: PCP,None [Primary Care Provider] - (Please make an appointment to see your primary care doctor in 7 to 10 days.) - Discharge Summary/Plan Comment DC Time >30 min.: Yes (60 mins ) - General Info Date of Service: 01/20/20 Admission Dx/Problem (Free Text: Admission Diagnosis/Problem Admission Diagnosis/Problem Cellulitis Functional Status: Reports: Pain Controlled, Tolerating Diet, Ambulating, Urinating. Denies: New Symptoms - Review of Systems General: Reports: No Symptoms. Denies: Fever, Fatigue, Malaise, Chills HEENT: Reports: No Symptoms. Denies: Headaches, Sore Throat Pulmonary: Reports: No Symptoms. Denies: Shortness of Breath, Cough, Sputum, Wheezing Cardiovascular: Reports: No Symptoms. Denies: Chest Pain, Palpitations, Dyspnea on Exertion, Edema Gastrointestinal: Reports: No Symptoms. Denies: Abdominal Pain, Constipation, Diarrhea, Nausea, Vomiting Genitourinary: Reports: No Symptoms. Denies: Pain Musculoskeletal: Reports: Leg Pain Skin: Reports: No Symptoms. Denies: Cyanosis Neurological: Reports: No Symptoms. Denies: Numbness, Tingling, Difficulty Walking, Gait Disturbance Psychiatric: Reports: Confusion, Mood Lability, Hallucinations. Denies: Agitation - Patient Data Vitals - Most Recent: Last Vital Signs Temp 97.9 F 01/20/20 07:27 Pulse 102 H 01/20/20 08:32 Resp 16 01/20/20 07:33 BP 146/74 H 01/20/20 08:32 Pulse Ox 91 L 01/20/20 07:27 Weight - Most Recent: 300 lb I&O - Last 24 hours: Intake & Output 01/19/20 01/20/20 01/20/20 22:59 06:59 14:59 Intake Total 750 1050 0 Output Total 1000 500 Balance -250 550 0 Lab Results - Last 24 hrs: Laboratory Results - last 24 hr 01/19/20 01/19/20 01/19/20 Range/Units 11:56 16:58 21:17 WBC (4.23-9.07) K/mm3 RBC (4.63-6.08) M/mm3 Hgb (13.7-17.5) gm/dl Hct (40.1-51.0) % MCV (79.0-92.2) fl MCH (25.7-32.2) pg MCHC (32.2-35.5) g/dl RDW Std Deviation (35.1-43.9) fL Plt Count (163-337) K/mm3 MPV (9.4-12.3) fl Neut % (Auto) (34.0-67.9) % Lymph % (Auto) (21.8-53.1) % [place] % (Auto) (5.3-12.2) % Eos % (Auto) (0.8-7.0) Baso % (Auto) (0.1-1.2) % Neut # (Auto) (1.78-5.38) K/mm3 Lymph # (Auto) (1.32-3.57) K/mm3 [place] # (Auto) (0.30-0.82) K/mm3 Eos # (Auto) (0.04-0.54) K/mm3 Baso # (Auto) (0.01-0.08) K/mm3 Manual Slide Review Sodium (136-145) mEq/L Potassium (3.5-5.1) mEq/L Chloride (98-107) mEq/L Carbon Dioxide (21-32) mEq/L Anion Gap (5-15) BUN (7-18) mg/dL Creatinine (0.7-1.3) mg/dL Est Cr Clr Drug Dosing mL/min Estimated GFR (MDRD) (>60) mL/min BUN/Creatinine Ratio (14-18) Glucose (80-115) mg/dL POC Glucose 164 H 151 H 188 H (80-115) mg/dL Calcium (8.5-10.1) mg/dL Magnesium (1.8-2.4) mg/dl C-Reactive Protein (<1.0) mg/dL 01/20/20 01/20/20 01/20/20 Range/Units 04:45 04:45 06:49 WBC 12.49 H (4.23-9.07) K/mm3 RBC 4.82 (4.63-6.08) M/mm3 Hgb 11.2 L (13.7-17.5) gm/dl Hct 39.0 L (40.1-51.0) % MCV 80.9 (79.0-92.2) fl MCH 23.2 L (25.7-32.2) pg MCHC 28.7 L (32.2-35.5) g/dl RDW Std Deviation 51.7 H (35.1-43.9) fL Plt Count 267 (163-337) K/mm3 MPV 11.1 (9.4-12.3) fl Neut % (Auto) 75.6 H (34.0-67.9) % Lymph % (Auto) 9.7 L (21.8-53.1) % [place] % (Auto) 10.6 (5.3-12.2) % Eos % (Auto) 2.4 (0.8-7.0) Baso % (Auto) 0.9 (0.1-1.2) % Neut # (Auto) 9.44 H (1.78-5.38) K/mm3 Lymph # (Auto) 1.21 L (1.32-3.57) K/mm3 [place] # (Auto) 1.33 H (0.30-0.82) K/mm3 Eos # (Auto) 0.30 (0.04-0.54) K/mm3 Baso # (Auto) 0.11 H (0.01-0.08) K/mm3 Manual Slide Review Abnormal smear Sodium 137 (136-145) mEq/L Potassium 3.9 (3.5-5.1) mEq/L Chloride 99 (98-107) mEq/L Carbon Dioxide 27 (21-32) mEq/L Anion Gap 14.9 (5-15) BUN 23 H (7-18) mg/dL Creatinine 1.1 (0.7-1.3) mg/dL Est Cr Clr Drug Dosing 74.46 mL/min Estimated GFR (MDRD) > 60 (>60) mL/min BUN/Creatinine Ratio 20.9 H (14-18) Glucose 144 H (80-115) mg/dL POC Glucose 151 H (80-115) mg/dL Calcium 9.0 (8.5-10.1) mg/dL Magnesium 1.8 (1.8-2.4) mg/dl C-Reactive Protein 19.2 H* (<1.0) mg/dL 01/20/20 Range/Units 11:35 WBC (4.23-9.07) K/mm3 RBC (4.63-6.08) M/mm3 Hgb (13.7-17.5) gm/dl Hct (40.1-51.0) % MCV (79.0-92.2) fl MCH (25.7-32.2) pg MCHC (32.2-35.5) g/dl RDW Std Deviation (35.1-43.9) fL Plt Count (163-337) K/mm3 MPV (9.4-12.3) fl Neut % (Auto) (34.0-67.9) % Lymph % (Auto) (21.8-53.1) % [place] % (Auto) (5.3-12.2) % Eos % (Auto) (0.8-7.0) Baso % (Auto) (0.1-1.2) % Neut # (Auto) (1.78-5.38) K/mm3 Lymph # (Auto) (1.32-3.57) K/mm3 [place] # (Auto) (0.30-0.82) K/mm3 Eos # (Auto) (0.04-0.54) K/mm3 Baso # (Auto) (0.01-0.08) K/mm3 Manual Slide Review Sodium (136-145) mEq/L Potassium (3.5-5.1) mEq/L Chloride (98-107) mEq/L Carbon Dioxide (21-32) mEq/L Anion Gap (5-15) BUN (7-18) mg/dL Creatinine (0.7-1.3) mg/dL Est Cr Clr Drug Dosing mL/min Estimated GFR (MDRD) (>60) mL/min BUN/Creatinine Ratio (14-18) Glucose (80-115) mg/dL POC Glucose 182 H (80-115) mg/dL Calcium (8.5-10.1) mg/dL Magnesium (1.8-2.4) mg/dl C-Reactive Protein (<1.0) mg/dL ROSA ISELA Results - Last 24 hrs: Microbiology 01/16/20 19:50 Aerobic Blood Culture - Preliminary Blood - Venous - Lab Draw NO GROWTH AFTER 3 DAYS Anaerobic Blood Culture - Preliminary NO GROWTH AFTER 3 DAYS 01/16/20 19:45 Aerobic Blood Culture - Preliminary Blood - Venous NO GROWTH AFTER 3 DAYS Anaerobic Blood Culture - Preliminary NO GROWTH AFTER 3 DAYS 01/17/20 09:15 Wound Culture - Final Leg, Left Staphylococcus Aureus 01/19/20 03:30 Occult Blood - Preliminary Stool / Feces Med Orders - Current: Current Medications Acetaminophen (Tylenol) 650 mg PO Q4H PRN PRN Reason: Pain (Mild 1-3)/fever Last Admin: 01/20/20 05:49 Dose: 650 mg Documented by: Acetaminophen/Codeine Phosphate (Tylenol With Codeine No.3 300mg/30mg) 2 tab PO Q6H PRN PRN Reason: Pain Last Admin: 01/20/20 11:29 Dose: 2 tab Documented by: Allopurinol (Zyloprim) 100 mg PO DAILY [facility] Last Admin: 01/20/20 08:34 Dose: 100 mg Documented by: Cyclobenzaprine HCl (Flexeril) 10 mg PO BID [facility] Last Admin: 01/20/20 08:35 Dose: 10 mg Documented by: Dextrose/Water (Dextrose 50% In Water) 50 ml IVPUSH ASDIRECTED PRN PRN Reason: Hypoglycemia Famotidine (Pepcid) 20 mg PO BID [facility] Last Admin: 01/20/20 08:36 Dose: 20 mg Documented by: Furosemide (Lasix) 40 mg PO DAILY [facility] Last Admin: 01/20/20 08:36 Dose: 40 mg Documented by: Guaifenesin/Phenylephrine HCl (Robitussin Dm) 10 ml PO QID PRN PRN Reason: Cough Last Admin: 01/19/20 20:58 Dose: 10 ml Documented by: Cefazolin Sodium/Dextrose 2 gm (/ Premix) 50 mls @ 100 mls/hr IV Q8H [facility] Last Admin: 01/20/20 05:48 Dose: 100 mls/hr Documented by: Insulin Glargine (Lantus) 10 unit SUBCUT BEDTIME [facility] Last Admin: 01/19/20 21:41 Dose: 10 units Documented by: Lamotrigine (Lamotrigine) 25 mg PO BID [facility] Last Admin: 01/20/20 08:34 Dose: 25 mg Documented by: Melatonin (Melatonin) 6 mg PO BEDTIME PRN PRN Reason: Insomnia Last Admin: 01/19/20 21:00 Dose: 6 mg Documented by: Metoprolol Succinate (Toprol Xl) 50 mg PO QAM [facility] Last Admin: 01/20/20 08:32 Dose: 50 mg Documented by: Montelukast Sodium (Singulair) 10 mg PO BEDTIME [facility] Last Admin: 01/19/20 21:00 Dose: 10 mg Documented by: Morphine Sulfate (Morphine) 2 mg IVPUSH Q4H PRN PRN Reason: Pain (severe 7-10) Ondansetron HCl (Zofran) 4 mg IV Q6H PRN PRN Reason: Nausea/Vomiting Pimozide 2 Mg 0 each PO BID [facility] Last Admin: 01/20/20 08:39 Dose: Not Given Documented by: Quetiapine Fumarate (Seroquel) 50 mg PO BEDTIME [facility] Last Admin: 01/19/20 21:00 Dose: 50 mg Documented by: Rivaroxaban (Xarelto) 20 mg PO WITHDINNER [facility] Last Admin: 01/19/20 17:19 Dose: 20 mg Documented by: Senna (Senna) 8.6 mg PO BEDTIME [facility] Last Admin: 01/19/20 21:00 Dose: 8.6 mg Documented by: Sertraline HCl (Zoloft) 100 mg PO DAILY [facility] Last Admin: 01/20/20 08:33 Dose: 100 mg Documented by: Sodium Chloride (Saline Flush) 10 ml FLUSH ASDIRECTED PRN PRN Reason: Keep Vein Open Last Admin: 01/16/20 20:28 Dose: 10 ml Documented by: Tamsulosin HCl (Flomax) 0.4 mg PO BEDTIME [facility] Last Admin: 01/19/20 21:00 Dose: 0.4 mg Documented by: Thiamine HCl (Vitamin B-1) 100 mg PO DAILY [facility] Last Admin: 01/20/20 08:36 Dose: 100 mg Documented by: Discontinued Medications Vancomycin HCl 2 gm/ Sodium (Chloride) 250 mls @ 250 mls/hr IV ONETIME ONE Stop: 01/16/20 20:07 Last Admin: 01/16/20 20:27 Dose: 250 mls/hr Documented by: Cefazolin Sodium/Dextrose 2 gm (/ Premix) 50 mls @ 100 mls/hr IV ONETIME ONE Stop: 01/16/20 22:23 Last Admin: 01/16/20 23:10 Dose: 100 mls/hr Documented by: Ferric Sodium Gluconate Complex 250 mg/ Sodium Chloride 120 mls @ 60 mls/hr IV ONETIME ONE Stop: 01/18/20 12:59 Last Admin: 01/18/20 10:44 Dose: 60 mls/hr Documented by: Vancomycin HCl 2 gm/ Sodium (Chloride) 500 mls @ 250 mls/hr IV Q12H [facility] Last Admin: 01/18/20 14:54 Dose: Not Given Documented by: Vancomycin HCl 1 gm/Vancomycin HCl 500 mg/ Sodium Chloride 500 mls @ 333 mls/hr IV Q12H [facility] Last Admin: 01/18/20 14:53 Dose: Not Given Documented by: Vancomycin HCl 1 gm/Vancomycin HCl 500 mg/ Sodium Chloride 500 mls @ 333 mls/hr IV Q12H [facility] Last Admin: 01/19/20 01:19 Dose: 333 mls/hr Documented by: Lidocaine HCl (Xylocaine 1%) 10 ml INJECT ONETIME ONE Stop: 01/18/20 13:02 Last Admin: 01/18/20 13:25 Dose: 10 ml Documented by: Magnesium Hydroxide (Milk Of Magnesia) 30 ml PO ONETIME ONE Stop: 01/19/20 06:01 Morphine Sulfate (Morphine) 2 mg IVPUSH Q4H PRN PRN Reason: Pain Non-Formulary Medication (Melatonin [Melatonin]) 5 mg PO BEDTIME PRN PRN Reason: Insomnia Vancomycin HCl (Pharmacy To Dose - Vancomycin) 0 dose .XX ASDIRECTED PRN PRN Reason: RX TO DOSE VANCOMYCIN - Exam Quality Assessment: Reports: DVT Prophylaxis. Denies: Supplemental Oxygen General: Reports: Alert, Oriented, Cooperative, No Acute Distress HEENT: Reports: Pupils Equal, Pupils Reactive, Mucous Membr. Moist/[place]: Reports: Supple, Trachea Midline Lungs: Reports: Clear to Auscultation, Normal Respiratory Effort Cardiovascular: Reports: Regular Rate, Regular Rhythm GI/Abdominal Exam: Normal Bowel Sounds, Soft, Non-Tender, No Distention (Male) Exam: Deferred Rectal (Males) Exam: Deferred Back Exam: Reports: Normal Inspection, Full Range of Motion Extremities: Pedal Edema (2-3+), Slow Capillary Refill, Leg Pain, Redness (improving bilaterally), Other (Bandage in place on medial aspect of right great toe 2/2 I&D. Improving tenderness. Bilateral scaly skin on lower extremities ) Skin: Reports: Warm, Dry, Intact Wound/Incisions: Reports: Healing Well, Dressing Dry and Intact, No Drainage, Erythema Improving Neurological: Reports: No New Focal Deficit Psy/Mental Status: Reports: Alert, Normal Affect, Normal Mood *Q Meaningful Use (DIS) - VTE *Q VTE Anticoagulation Contraindications: Medical/Procedure Contrai
--- NOTE | 2020-01-21 06:21 | CR ---
Chest: Frontal view of the chest was obtained. Comparison: Previous chest x-ray of 02/19/18. Heart size and mediastinum are within normal limits for portable technique. Lungs show slight atelectasis within the left base. Lungs otherwise are clear. Bony structures are grossly intact. Impression: 1. Minimal left basilar atelectasis. 2. Nothing acute is seen on frontal chest x-ray. Diagnostic code #2 This report was dictated in MDT
== END 2020-01-20 13:38 | disposition other institution (70) | DRG 602 ==
LOC: JD.ED 18:05 → JD.MS 21:55 → OBSVTOIN 01-20 07:26 → JD.MS 01-20 11:30
PROVIDERS: ADMIT Family Medicine; ATTEND Family Medicine
PROC: 0Y9N0ZZ Drainage of Left Foot, Open Approach (ICD-10-PCS; principal; 2020-01-20)
DX: L03.116 Cellulitis of left lower limb (principal); J96.21 Acute and chronic respiratory failure with hypoxia; N17.9 Acute kidney failure, unspecified; C85.90 Non-Hodgkin lymphoma, unspecified, unspecified site; E87.2 Acidosis; I42.9 Cardiomyopathy, unspecified; L03.115 Cellulitis of right lower limb; Z79.01 Long term (current) use of anticoagulants; N40.0 Benign prostatic hyperplasia without lower urinary tract symptoms; J44.9 Chronic obstructive pulmonary disease, unspecified; M54.89 Other dorsalgia; I25.10 Atherosclerotic heart disease of native coronary artery without angina pectoris; G47.33 Obstructive sleep apnea (adult) (pediatric); E87.6 Hypokalemia; E03.9 Hypothyroidism, unspecified; I65.22 Occlusion and stenosis of left carotid artery; G43.809 Other migraine, not intractable, without status migrainosus; Z86.718 Personal history of other venous thrombosis and embolism; E11.22 Type 2 diabetes mellitus with diabetic chronic kidney disease; I12.9 Hypertensive chronic kidney disease with stage 1 through stage 4 chronic kidney disease, or unspecified chronic kidney disease; N18.9 Chronic kidney disease, unspecified; D50.9 Iron deficiency anemia, unspecified; R44.1 Visual hallucinations; E78.5 Hyperlipidemia, unspecified; I48.0 Paroxysmal atrial fibrillation; E66.01 Morbid (severe) obesity due to excess calories; Z68.30 Body mass index [BMI] 30.0-30.9, adult; Z95.5 Presence of coronary angioplasty implant and graft; Z86.73 Personal history of transient ischemic attack (TIA), and cerebral infarction without residual deficits; E83.42 Hypomagnesemia; R00.0 Tachycardia, unspecified; K21.9 Gastro-esophageal reflux disease without esophagitis; Z20.828 Contact with and (suspected) exposure to other viral communicable diseases
CPT/HCPCS: 36415; 36600; 71045; 71045-26; 80048; 80053; 81001; 82270; 82306; 82550; 82570; 82607; 82728; 82746; 82803; 82962; 83036; 83540; 83605; 83615; 83735; 83880; 84100; 84134; 84145; 84300; 84466; 84484; 85025; 85045; 85379; 85610; 85652; 85730; 86140; 87040; 87070; 87077; 87186; 87641; 93005; 93306; 96365; 96366; 96375; 96376; 97116-GP; 97163-GP; 97165-GO; 97530-GO; 97597-GP; 99219; 99224; 99225; 99239; 99284; 99285-25; A9270-GY; G0378; J0690; J1815-GY; J2001; J2916; J3370; J7040; J7050; Q3014; U0002

== ENCOUNTER 2020-02-16 10:17 | Emergency (ER) | payer OTHER, MEDICARE, MEDICAID ==
[2020-02-16] MEDS ORDERED: Sodium Chloride 0.9% 10 ML Syringe FLUSH PRN (10:37)
[2020-02-16] MEDS ORDERED: Dexamethasone 4 MG/ML SDV IVPUSH ONE (14:04)
--- NOTE | 2020-02-16 14:11 | EDM.PDOC ---
ED HPI GENERAL MEDICAL PROBLEM - General Chief Complaint: Respiratory Problem Stated Complaint: [facility] Time Seen by Provider: 02/16/20 10:27 Source of Information: Reports: Patient, EMS History Limitations: Reports: No Limitations - History of Present Illness INITIAL COMMENTS - FREE TEXT/NARRATIVE: The patient presents by [facility] for a cough, shortness of breath and confusion. The patient is in the [facility]. He has a history of alcohol abuse, hallucinations, VT, chronic renal disease, HTN, delusions, diabetes Type II, morbid obesity, paroxysmal atrial fibrillation, TIA, and diabetic foot ulcer. Over a month ago he had diabetic foot ulcer. He was admitted to the hospital. 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 He had a cough and his oxygen saturations were in the 70s. He has no chest pain. He does feel short of breath. He did have some confusion. Onset: Gradual Duration: Day(s): Severity: Moderate Improves with: Reports: None Worsens with: Reports: None Associated Symptoms: Reports: Cough, Shortness of Breath. Denies: Chest Pain, Fever/Chills, Headaches, Nausea/Vomiting - Related Data Allergies Allergy/AdvReac Type Severity Reaction Status Date / Time No Known Allergies Allergy Verified 01/16/20 18:29 Home Meds: Home Meds allopurinoL [Zyloprim] 100 mg PO DAILY 09/16/13 [History] Rivaroxaban [Xarelto] 20 mg PO DAILY #30 tablet 07/21/15 [Rx] Cyclobenzaprine [Flexeril] 10 mg PO BID 12/18/16 [History] Ezetimibe 10 mg PO BEDTIME 02/18/18 [History] Calcium Carbonate/Vitamin D3 [Calcium 600 + Vit D 400 Softgl] 1 tab PO BID 03/10/19 [History] Melatonin 5 mg PO BEDTIME 03/10/19 [History] Acetaminophen [Tylenol Arthritis Pain] 650 mg PO BID 01/17/20 [History] Famotidine 20 mg PO BID 01/17/20 [History] Furosemide 40 mg PO DAILY 01/17/20 [History] Metoprolol Succinate [Toprol XL 50mg] 50 mg PO QAM 01/17/20 [History] Montelukast [Singulair] 10 mg PO BEDTIME 01/17/20 [History] Multivitamin [Tab-A-Kira] 1 tab PO DAILY 01/17/20 [History] Sennosides [Senna] 17.2 mg PO BEDTIME 01/17/20 [History] Tamsulosin [Flomax] 0.4 mg PO BEDTIME 01/17/20 [History] Thiamine HCl [Vitamin B-1] 100 mg PO DAILY 01/17/20 [History] lamoTRIgine [Lamotrigine] 75 mg PO BID 01/17/20 [History] sitaGLIPtin Phosphate [Januvia] 50 mg PO DAILY 01/17/20 [History] Acetaminophen [Tylenol] 500 mg PO DAILY PRN 01/20/20 [History] Ascorbic Acid/Calcium Pantothe 1 tab PO DAILY 01/20/20 [History] Benzocaine 0.1mg/Mg Oral Gel 1 applic PO QID PRN 01/20/20 [History] Cariprazine HCl [Vraylar] 3 mg PO DAILY 01/20/20 [History] Fenofibrate Nanocrystallized [Fenofibrate] 145 mg PO DAILY 01/20/20 [History] Fluticasone Propionate [Flovent HFA] 2 spray INH DAILY PRN 01/20/20 [History] Insulin Glargine,Hum.Rec.Anlog [Basaglar Kwikpen U-100] 25 unit SQ BID 01/20/20 [History] Insulin Lispro [Admelog] 15 units SQ TIDMEALS 01/20/20 [History] OLANZapine [Olanzapine] 10 mg PO BID 01/20/20 [History] OLANZapine [Olanzapine] 20 mg PO BEDTIME 01/20/20 [History] SUMAtriptan [Imitrex] 50 mg PO Q12H PRN 01/20/20 [History] Sertraline [Zoloft] 100 mg PO DAILY 01/20/20 [History] Super Beta Prostate Advanced 1 tab PO DAILY 01/20/20 [History] Super Beta Virility Boost 1 tab PO DAILY 01/20/20 [History] Trolamine Salicylate/Aloe Vera [Aspercreme 10%] 1 applic TOP BID 01/20/20 [History] haloperidoL [Haldol] 2 mg PO BEDTIME 01/20/20 [History] polyethylene glycoL 3350 [MiraLAX] 17 gram PO DAILY 01/20/20 [History] traZODone HCl [Trazodone HCl] 75 mg PO BEDTIME 01/20/20 [History] Past Medical History HEENT History: Reports: Sinusitis, Other (See Below) Other HEENT History: sialodenitis, oral surgery, bilateral myopia Cardiovascular History: Reports: Afib, Blood Clots/VTE/DVT, CAD, Cardiomyopathy, Heart Failure, High Cholesterol, Hypertension, VT, PVD, Stents Other Cardiovascular History: occulusion and left carotid artery Respiratory History: Reports: COPD, Sleep Apnea Other Respiratory History: hypoxia Gastrointestinal History: Reports: GERD Genitourinary History: Reports: Acute Renal Failure, BPH, Chronic Renal Insuffiency SLOT FLOOR ATTENDANT History: Reports: None Musculoskeletal History: Reports: Back Pain, Chronic, Gout, Other (See Below) Other Musculoskeletal History: left back fusion Neurological History: Reports: CVA, Migraines Other Neuro History: spinal stenosis, cerviclagia, post-laminectomy syndrome Psychiatric History: Reports: Depression, Other (See Below) Other Psychiatric History: insomnia;mental and behavioral disorders, substance abuse history, opiod dependence, confusion, psychosis, somnolence, insomnia, chronic pain syndrome Endocrine/Metabolic History: Reports: Diabetes, Type II, Hypothyroidism, Obesity/BMI 30+ Hematologic History: Reports: Other (See Below) Other Hematologic History: hypokalemia, hypomagnesia Immunologic History: Reports: None Oncologic (Cancer) History: Reports: None Dermatologic History: Reports: Cellulitis Other Dermatologic History: ingrown toe nails, skin disorder - Infectious Disease History Infectious Disease History: Reports: Novel Coronavirus - Past Surgical History Head Surgeries/Procedures: Reports: None HEENT Surgical History: Reports: Naso-Sinus Surgery, Oral Surgery, Other (See Below) Other HEENT Surgeries/Procedures: oral infection Cardiovascular Surgical History: Reports: None Respiratory Surgical History: Reports: None GI Surgical History: Reports: Hernia Repair/Other Male Surgical History: Reports: None Endocrine Surgical History: Reports: None Neurological Surgical History: Reports: Laminectomy, Spinal Fusion Musculoskeletal Surgical History: Reports: Other (See Below) Other Musculoskeletal Surgeries/Procedures:: left shoulder surgery Oncologic Surgical History: Reports: None Dermatological Surgical History: Reports: None Social & Family History - Family History Family Medical History: Noncontributory HEENT: Reports: None Cardiac: Reports: VT, Stent, Other (See Below) Other Cardiac Family History: Unsure of exact family history GI: Reports: Cholelithiasis Musculoskeletal: Reports: Gout Neurological: Reports: Alzheimers Disease Endocrine/Metabolic: Reports: Diabetes, type II Oncologic: Reports: Colon - Tobacco Use Smoking Status *Q: Unknown Ever Smoked - Caffeine Use Caffeine Use: Reports: None Other Caffeine Use: 2 [address] Pepper per day. - Recreational Drug Use Recreational Drug Use: Yes Drug Use in Last 12 Months: No - Living Situation & Occupation Living situation: Reports: Single Occupation: Disabled ED ROS GENERAL - Review of Systems Review Of Systems: See Below Constitutional: Reports: Fever, Chills, Malaise, Weakness, Fatigue HEENT: Reports: No Symptoms Respiratory: Reports: Shortness of Breath, Cough Cardiovascular: Reports: No Symptoms Endocrine: Reports: No Symptoms GI/Abdominal: Reports: No Symptoms : Reports: No Symptoms Musculoskeletal: Reports: No Symptoms ED EXAM, GENERAL - Physical Exam Exam: See Below Exam Limited By: No Limitations General Appearance: Alert, No Apparent Distress Ears: Normal External Exam Nose: Normal Inspection Head: Atraumatic, Normocephalic Neck: Normal Inspection Respiratory/Chest: No Respiratory Distress, Decreased Breath Sounds, Rhonchi Cardiovascular: Regular Rate, Rhythm, No Edema, No Murmur GI/Abdominal: Soft, Non-Tender, No Organomegaly, No Mass Back Exam: Normal Inspection Extremities: Other (Diabetic ulcer to the right foot) Neurological: Alert, No Motor/Sensory Deficits Course - Vital Signs Last Recorded V/S: Last Vital Signs Temp 100.6 F 02/16/20 12:37 Pulse 101 H 02/16/20 12:37 Resp 19 02/16/20 12:37 BP 143/71 H 02/16/20 12:37 Pulse Ox 100 02/16/20 12:37 - Orders/Labs/Meds Orders: Active Orders 24 hr Category Date Time Status Cardiac Monitoring [RC] . DIRECTED Care 02/16/20 10:37 Active Oxygen Therapy [RC] PRN Care 02/16/20 10:37 Active Peripheral IV Care [RC] . DIRECTED Care 02/16/20 10:38 Active Chest 1V Frontal [CR] Stat Exams 02/16/20 10:38 Taken CULTURE BLOOD [BC] Stat Lab 02/16/20 11:10 Received CULTURE BLOOD [BC] Stat Lab 02/16/20 11:26 Received Sodium Chloride 0.9% [Saline Flush] Med 02/16/20 10:37 Active 10 ml FLUSH ASDIRECTED PRN Blood Culture x2 Reflex Set [OM.PC] Stat Oth 02/16/20 10:38 Ordered Peripheral IV Insertion Adult [OM.PC] Stat Oth 02/16/20 10:37 Ordered Medication Orders Sodium Chloride (Saline Flush) 10 ml FLUSH ASDIRECTED PRN PRN Reason: Keep Vein Open Last Admin: 02/16/20 10:41 Dose: 10 ml Documented by: RINA Labs: Laboratory Tests 02/16/20 02/16/20 02/16/20 Range/Units 10:55 11:10 11:10 WBC 3.89 L (4.23-9.07) K/mm3 RBC 4.77 (4.63-6.08) M/mm3 Hgb 11.3 L (13.7-17.5) gm/dl Hct 39.0 L (40.1-51.0) % MCV 81.8 (79.0-92.2) fl MCH 23.7 L (25.7-32.2) pg MCHC 29.0 L (32.2-35.5) g/dl RDW Std Deviation 55.8 H (35.1-43.9) fL Plt Count 216 (163-337) K/mm3 MPV 10.7 (9.4-12.3) fl Neut % (Auto) 72.5 H (34.0-67.9) % Lymph % (Auto) 16.7 L (21.8-53.1) % [place] % (Auto) 9.0 (5.3-12.2) % Eos % (Auto) 0.5 L (0.8-7.0) Baso % (Auto) 0.8 (0.1-1.2) % Neut # (Auto) 2.82 (1.78-5.38) K/mm3 Lymph # (Auto) 0.65 L (1.32-3.57) K/mm3 [place] # (Auto) 0.35 (0.30-0.82) K/mm3 Eos # (Auto) 0.02 L (0.04-0.54) K/mm3 Baso # (Auto) 0.03 (0.01-0.08) K/mm3 Manual Slide Review Abnormal smear PT 13.7 H (9.7-11.7) SECONDS INR 1.29 APTT 30 (22-31) SECONDS D-Dimer, Quantitative 0.29 (0.19-0.50) mg/L Puncture Site ABG pH (7.35-7.45) ABG pCO2 (35.0-45.0) mmHg ABG pO2 (80.0-100.0) mmHg ABG HCO3 (22.0-26.0) meq/L ABG O2 Saturation (96.0-97.0) % ABG Base Excess (-2-2.0) A-a Gradient mmHg O2 Delivery Device Oxygen Flow Rate FiO2 (21.00-100.00) % Sodium (136-145) mEq/L Potassium (3.5-5.1) mEq/L Chloride (98-107) mEq/L Carbon Dioxide (21-32) mEq/L Anion Gap (5-15) BUN (7-18) mg/dL Creatinine (0.7-1.3) mg/dL Est Cr Clr Drug Dosing Estimated GFR (MDRD) (>60) mL/min BUN/Creatinine Ratio (14-18) Glucose (80-115) mg/dL Lactic Acid (0.4-2.0) mmol/L Calcium (8.5-10.1) mg/dL Ferritin (26-388) ng/ml Total Bilirubin (0.2-1.0) mg/dL AST (15-37) U/L ALT (16-63) U/L Alkaline Phosphatase (46-116) U/L Lactate Dehydrogenase (85-227) U/L C-Reactive Protein (<1.0) mg/dL Total Protein (6.4-8.2) g/dl Albumin (3.4-5.0) g/dl Globulin gm/dL Albumin/Globulin Ratio (1-2) SARS-CoV-2 RNA (ANSELMO) Positive H (NEGATIVE) 02/16/20 02/16/20 02/16/20 Range/Units 11:10 11:10 11:10 WBC (4.23-9.07) K/mm3 RBC (4.63-6.08) M/mm3 Hgb (13.7-17.5) gm/dl Hct (40.1-51.0) % MCV (79.0-92.2) fl MCH (25.7-32.2) pg MCHC (32.2-35.5) g/dl RDW Std Deviation (35.1-43.9) fL Plt Count (163-337) K/mm3 MPV (9.4-12.3) fl Neut % (Auto) (34.0-67.9) % Lymph % (Auto) (21.8-53.1) % [place] % (Auto) (5.3-12.2) % Eos % (Auto) (0.8-7.0) Baso % (Auto) (0.1-1.2) % Neut # (Auto) (1.78-5.38) K/mm3 Lymph # (Auto) (1.32-3.57) K/mm3 [place] # (Auto) (0.30-0.82) K/mm3 Eos # (Auto) (0.04-0.54) K/mm3 Baso # (Auto) (0.01-0.08) K/mm3 Manual Slide Review PT (9.7-11.7) SECONDS INR APTT (22-31) SECONDS D-Dimer, Quantitative (0.19-0.50) mg/L Puncture Site Rt radial ABG pH 7.49 H (7.35-7.45) ABG pCO2 44.7 (35.0-45.0) mmHg ABG pO2 63.0 L (80.0-100.0) mmHg ABG HCO3 34.0 H (22.0-26.0) meq/L ABG O2 Saturation 91.2 L (96.0-97.0) % ABG Base Excess 9.8 H (-2-2.0) A-a Gradient 109 mmHg O2 Delivery Device Nasal cannula Oxygen Flow Rate 3.0 FiO2 32.00 (21.00-100.00) % Sodium 141 (136-145) mEq/L Potassium 3.5 (3.5-5.1) mEq/L Chloride 101 (98-107) mEq/L Carbon Dioxide 34 H (21-32) mEq/L Anion Gap 9.5 (5-15) BUN 20 H (7-18) mg/dL Creatinine 1.4 H (0.7-1.3) mg/dL Est Cr Clr Drug Dosing TNP Estimated GFR (MDRD) 51 (>60) mL/min BUN/Creatinine Ratio 14.3 (14-18) Glucose 92 (80-115) mg/dL Lactic Acid 0.9 (0.4-2.0) mmol/L Calcium 9.4 (8.5-10.1) mg/dL Ferritin (26-388) ng/ml Total Bilirubin 0.7 (0.2-1.0) mg/dL AST 41 H (15-37) U/L ALT 32 (16-63) U/L Alkaline Phosphatase 52 (46-116) U/L Lactate Dehydrogenase 221 (85-227) U/L C-Reactive Protein 16.0 H* (<1.0) mg/dL Total Protein 7.1 (6.4-8.2) g/dl Albumin 3.0 L (3.4-5.0) g/dl Globulin 4.1 gm/dL Albumin/Globulin Ratio 0.7 L (1-2) SARS-CoV-2 RNA (ANSELMO) (NEGATIVE) 02/16/20 Range/Units 11:10 WBC (4.23-9.07) K/mm3 RBC (4.63-6.08) M/mm3 Hgb (13.7-17.5) gm/dl Hct (40.1-51.0) % MCV (79.0-92.2) fl MCH (25.7-32.2) pg MCHC (32.2-35.5) g/dl RDW Std Deviation (35.1-43.9) fL Plt Count (163-337) K/mm3 MPV (9.4-12.3) fl Neut % (Auto) (34.0-67.9) % Lymph % (Auto) (21.8-53.1) % [place] % (Auto) (5.3-12.2) % Eos % (Auto) (0.8-7.0) Baso % (Auto) (0.1-1.2) % Neut # (Auto) (1.78-5.38) K/mm3 Lymph # (Auto) (1.32-3.57) K/mm3 [place] # (Auto) (0.30-0.82) K/mm3 Eos # (Auto) (0.04-0.54) K/mm3 Baso # (Auto) (0.01-0.08) K/mm3 Manual Slide Review PT (9.7-11.7) SECONDS INR APTT (22-31) SECONDS D-Dimer, Quantitative (0.19-0.50) mg/L Puncture Site ABG pH (7.35-7.45) ABG pCO2 (35.0-45.0) mmHg ABG pO2 (80.0-100.0) mmHg ABG HCO3 (22.0-26.0) meq/L ABG O2 Saturation (96.0-97.0) % ABG Base Excess (-2-2.0) A-a Gradient mmHg O2 Delivery Device Oxygen Flow Rate FiO2 (21.00-100.00) % Sodium (136-145) mEq/L Potassium (3.5-5.1) mEq/L Chloride (98-107) mEq/L Carbon Dioxide (21-32) mEq/L Anion Gap (5-15) BUN (7-18) mg/dL Creatinine (0.7-1.3) mg/dL Est Cr Clr Drug Dosing Estimated GFR (MDRD) (>60) mL/min BUN/Creatinine Ratio (14-18) Glucose (80-115) mg/dL Lactic Acid (0.4-2.0) mmol/L Calcium (8.5-10.1) mg/dL Ferritin 164 (26-388) ng/ml Total Bilirubin (0.2-1.0) mg/dL AST (15-37) U/L ALT (16-63) U/L Alkaline Phosphatase (46-116) U/L Lactate Dehydrogenase (85-227) U/L C-Reactive Protein (<1.0) mg/dL Total Protein (6.4-8.2) g/dl Albumin (3.4-5.0) g/dl Globulin gm/dL Albumin/Globulin Ratio (1-2) SARS-CoV-2 RNA (ANSELMO) (NEGATIVE) Meds: Medications Generic Name Dose Route Start Last Admin Trade Name Freq PRN Reason Stop Dose Admin Sodium Chloride 10 ml 02/16/20 10:37 02/16/20 10:41 Saline Flush FLUSH 10 ml ASDIRECTED PRN Administration Keep Vein Open Discontinued Medications Generic Name Dose Route Start Last Admin Trade Name Freq PRN Reason Stop Dose Admin Dexamethasone 6 mg 02/16/20 14:04 Dexamethasone IVPUSH 02/16/20 14:05 ONETIME ONE Remdesivir 200 mg/ Sodium 250 mls @ 250 mls/hr 02/16/20 14:04 Chloride IV 02/16/20 14:05 ONETIME ONE - Re-Assessments/Exams Free Text/Narrative Re-Assessment/Exam: 02/16/20 14:12 I ordered oxygen, IV saline lock, CXR, labs, blood cultures, lactic acid and ABG. His CXR shows findings most compatible with mild to moderate grade CHF. This was rad by the radiologist by I am concerned this could be COVID 19. His WBC was low at 3.84. His Hgb was low at 11.3. His PT is elevated at 13.7. His D-dimer is negative. His pH is elevated at 7.49. His pCO2 is normal at 44.7. His pO2 is low at 63. His oxygen was increased to 3L. His creatinine is elevated at 1.4. His CRP is 16. He is COVID 19 positive. I started dexamethasone 6mg IV and remdezivir. I feel he needs to be admitted. We have no beds available here. I called [facility] in [place] and they were able to accept him. 02/16/20 14:15 I talked with the hospitalist Dr Trinidad. Departure - Departure Time of Disposition: 14:20 Disposition: DC/Tfer to Acute Hospital 02 Condition: Serious Clinical Impression: COVID-19, Pneumonia due to COVID-19 virus, Renal insufficiency, Hypoxia Diabetic foot ulcer Qualifiers: Diabetic foot ulcer location: unspecified part of foot Diabetes mellitus type: type 2 Laterality: right Non-pressure ulcer stage: with other severity Qualified Code(s): E11.621 - Type 2 diabetes mellitus with foot ulcer; L97.518 - Non- pressure chronic ulcer of other part of right foot with other specified severity - Discharge Information Referrals: Latrice Kwon NP [Primary Care Provider] - Sepsis Event Note (ED) - Evaluation Sepsis Screening Result: Possible Sepsis Risk - Focused Exam Vital Signs: Vital Signs Temp Pulse Resp BP Pulse Ox 02/16/20 12:37 100.6 F 101 H 19 143/71 H 100 02/16/20 10:25 100.9 F H 95 24 H 150/59 H 77 L - My Orders Last 24 Hours: My Active Orders 02/16/20 10:37 Cardiac Monitoring [RC] . DIRECTED Oxygen Therapy [RC] PRN Sodium Chloride 0.9% [Saline Flush] 10 ml FLUSH ASDIRECTED PRN Peripheral IV Insertion Adult [OM.PC] Stat 02/16/20 10:38 Peripheral IV Care [RC] . DIRECTED Chest 1V Frontal [CR] Stat Blood Culture x2 Reflex Set [OM.PC] Stat 02/16/20 11:10 CULTURE BLOOD [BC] Stat 02/16/20 11:26 CULTURE BLOOD [BC] Stat - Assessment/Plan Last 24 Hours: My Active Orders 02/16/20 10:37 Cardiac Monitoring [RC] . DIRECTED Oxygen Therapy [RC] PRN Sodium Chloride 0.9% [Saline Flush] 10 ml FLUSH ASDIRECTED PRN Peripheral IV Insertion Adult [OM.PC] Stat 02/16/20 10:38 Peripheral IV Care [RC] . DIRECTED Chest 1V Frontal [CR] Stat Blood Culture x2 Reflex Set [OM.PC] Stat 02/16/20 11:10 CULTURE BLOOD [BC] Stat 02/16/20 11:26 CULTURE BLOOD [BC] Stat
[2020-02-16 14:34] VITALS: PULSE 93
[2020-02-16] MEDS ORDERED: Acetaminophen 325 MG Tab PO ONE (14:45)
[2020-02-16 16:24] VITALS: BP 148/90
--- NOTE | 2020-03-19 12:49 | CR ---
PROCEDURE INFORMATION: Exam: XR Chest, 1 View Exam date and time: 02/16/2020 10:59 AM Age: 64 years old Clinical indication: Chest pain; Type not specified TECHNIQUE: Imaging protocol: XR of the chest Views: 1 view. COMPARISON: CR Chest 1V Frontal 01/16/2020 6:55 PM FINDINGS: Lungs: Increase in central pulmonary vasculature left greater than right. The findings suggest probable [id number] grade pulmonary edema. There is no evidence for pneumonia. Pleural space: There may be trace pleural effusions bilaterally. There is no pneumothorax. Heart/Mediastinum: There is moderate grade cardiomegaly. Bones/joints: Unremarkable. IMPRESSION: Findings most compatible with [id number] grade CHF. Thank you for allowing us to participate in the care of your patient. Dictated and Authenticated by: Sixto Rudd MD 03/19/2020 1:00 PM Central Time ([place] & [place]) MAMIE
== END 2020-02-16 15:05 ==
LOC: JD.ED 10:17
DX: E11.621 Type 2 diabetes mellitus with foot ulcer (principal); L97.518 Non-pressure chronic ulcer of other part of right foot with other specified severity; U07.1 COVID-19; J12.89 Other viral pneumonia; R09.02 Hypoxemia; I48.91 Unspecified atrial fibrillation; I25.10 Atherosclerotic heart disease of native coronary artery without angina pectoris; I13.0 Hypertensive heart and chronic kidney disease with heart failure and stage 1 through stage 4 chronic kidney disease, or unspecified chronic kidney disease; I50.9 Heart failure, unspecified; E78.00 Pure hypercholesterolemia, unspecified; I25.2 Old myocardial infarction; J44.9 Chronic obstructive pulmonary disease, unspecified; K21.9 Gastro-esophageal reflux disease without esophagitis; E11.51 Type 2 diabetes mellitus with diabetic peripheral angiopathy without gangrene; M10.9 Gout, unspecified; N18.9 Chronic kidney disease, unspecified; F32.9 Major depressive disorder, single episode, unspecified; E66.01 Morbid (severe) obesity due to excess calories; E11.9 Type 2 diabetes mellitus without complications; E03.9 Hypothyroidism, unspecified; Z79.4 Long term (current) use of insulin; Z79.01 Long term (current) use of anticoagulants; Z86.718 Personal history of other venous thrombosis and embolism; Z95.5 Presence of coronary angioplasty implant and graft; Z86.73 Personal history of transient ischemic attack (TIA), and cerebral infarction without residual deficits; Z20.828 Contact with and (suspected) exposure to other viral communicable diseases
CPT/HCPCS: 36415; 36600; 71045; 80053; 82728; 82803; 83605; 83615; 85025; 85379; 85610; 85730; 86140; 87040; 87635; 96365; 96375; 99285; A9270; J1100; J7050; 99284; U0002

== ENCOUNTER 2020-12-06 12:46 | Emergency (ER) | payer OTHER, MEDICAID ==
[2020-12-06 13:05] VITALS: BP 99/87; PULSE 73
--- NOTE | 2020-12-06 13:17 | EDM.PDOC ---
ED HPI GENERAL MEDICAL PROBLEM - General Chief Complaint: Chest Pain Stated Complaint: [facility] Time Seen by Provider: 12/06/20 13:02 - History of Present Illness INITIAL COMMENTS - FREE TEXT/NARRATIVE: 65-year-old male presents the emergency room for evaluation of chest pain. Patient is not having any symptoms at this time. However, he had an episode of chest pain that was brief between 10 and 11:00 this morning. The patient was putting his rest for his prosthetic leg on his wheelchair and he had to attempted multiple times he became short of breath and developed some chest pain. That he took several deep breaths and this got better he does not think this episode lasted more than half a minute. Patient has a significant history of type 2 diabetes obesity prior MT and what sounds like congestive heart f ailure. He denies any worsening cough fevers or chills. The patient is at [facility] to get his strength back and it sounds like his weights are gradually improving. The patient is symptom-free at this time. Over the long- term the patient believes his edema is getting better but it might be getting a little bit worse over the last couple of days. - Related Data Allergies Allergy/AdvReac Type Severity Reaction Status Date / Time No Known Allergies Allergy Verified 01/16/20 18:29 Home Meds: Home Meds allopurinoL [Zyloprim] 100 mg PO DAILY 09/16/13 [History] Rivaroxaban [Xarelto] 20 mg PO DAILY #30 tablet 07/21/15 [Rx] Cyclobenzaprine [Flexeril] 10 mg PO BID 12/18/16 [History] Ezetimibe 10 mg PO BEDTIME 02/18/18 [History] Calcium Carbonate/Vitamin D3 [Calcium 600Mg-D3 400 Unit Sfgl] 1 tab PO BID 03/10/19 [History] Melatonin 5 mg PO BEDTIME 03/10/19 [History] Acetaminophen [Tylenol Arthritis Pain] 650 mg PO BID 01/17/20 [History] Famotidine 20 mg PO BID 01/17/20 [History] Furosemide 40 mg PO DAILY 01/17/20 [History] Metoprolol Succinate [Toprol XL 50mg] 50 mg PO QAM 01/17/20 [History] Montelukast [Singulair] 10 mg PO BEDTIME 01/17/20 [History] Multivitamin with Folic Acid [Tab-A-Kira Tablet] 1 tab PO DAILY 01/17/20 [History] Sennosides [Senna] 17.2 mg PO BEDTIME 01/17/20 [History] Tamsulosin [Flomax] 0.4 mg PO BEDTIME 01/17/20 [History] Thiamine HCl [Vitamin B-1] 100 mg PO DAILY 01/17/20 [History] lamoTRIgine [Lamotrigine] 75 mg PO BID 01/17/20 [History] sitaGLIPtin Phosphate [Januvia] 50 mg PO DAILY 01/17/20 [History] Acetaminophen [Tylenol] 500 mg PO DAILY PRN 01/20/20 [History] Ascorbic Acid/Calcium Pantothe 1 tab PO DAILY 01/20/20 [History] Benzocaine 0.1mg/Mg Oral Gel 1 applic PO QID PRN 01/20/20 [History] Cariprazine HCl [Vraylar] 3 mg PO DAILY 01/20/20 [History] Fenofibrate Nanocrystallized [Fenofibrate] 145 mg PO DAILY 01/20/20 [History] Fluticasone Propionate [Flovent HFA] 2 spray INH DAILY PRN 01/20/20 [History] Insulin Glargine,Hum.Rec.Anlog [Basaglar Kwikpen U-100] 25 unit SQ BID 01/20/20 [History] Insulin Lispro [Admelog] 15 units SQ TIDMEALS 01/20/20 [History] OLANZapine [Olanzapine] 10 mg PO BID 01/20/20 [History] OLANZapine [Olanzapine] 20 mg PO BEDTIME 01/20/20 [History] SUMAtriptan [Imitrex] 50 mg PO Q12H PRN 01/20/20 [History] Sertraline [Zoloft] 100 mg PO DAILY 01/20/20 [History] Super Beta Prostate Advanced 1 tab PO DAILY 01/20/20 [History] Super Beta Virility Boost 1 tab PO DAILY 01/20/20 [History] Trolamine Salicylate/Aloe Vera [Aspercreme 10%] 1 applic TOP BID 01/20/20 [History] haloperidoL [Haldol] 2 mg PO BEDTIME 01/20/20 [History] polyethylene glycoL 3350 [MiraLAX] 17 gram PO DAILY 01/20/20 [History] traZODone HCl [Trazodone HCl] 75 mg PO BEDTIME 01/20/20 [History] Past Medical History HEENT History: Reports: Sinusitis, Other (See Below) Other HEENT History: sialodenitis, oral surgery, bilateral myopia Cardiovascular History: Reports: Afib, Blood Clots/VTE/DVT, CAD, Cardiomyopathy, Heart Failure, High Cholesterol, Hypertension, MT, PVD, Stents Other Cardiovascular History: occulusion and left carotid artery Respiratory History: Reports: COPD, Sleep Apnea Other Respiratory History: hypoxia Gastrointestinal History: Reports: GERD Genitourinary History: Reports: Acute Renal Failure, BPH, Chronic Renal Insuffiency [employer] History: Reports: None Musculoskeletal History: Reports: Back Pain, Chronic, Gout, Other (See Below) Other Musculoskeletal History: left back fusion Neurological History: Reports: CVA, Migraines Other Neuro History: spinal stenosis, cerviclagia, post-laminectomy syndrome Psychiatric History: Reports: Depression, Other (See Below) Other Psychiatric History: insomnia;mental and behavioral disorders, substance abuse history, opiod dependence, confusion, psychosis, somnolence, insomnia, chronic pain syndrome Endocrine/Metabolic History: Reports: Diabetes, Type II, Hypothyroidism, Obesity/BMI 30+ Hematologic History: Reports: Other (See Below) Other Hematologic History: hypokalemia, hypomagnesia Immunologic History: Reports: None Oncologic (Cancer) History: Reports: None Dermatologic History: Reports: Cellulitis Other Dermatologic History: ingrown toe nails, skin disorder - Infectious Disease History Infectious Disease History: Reports: Novel Coronavirus - Past Surgical History Head Surgeries/Procedures: Reports: None HEENT Surgical History: Reports: Naso-Sinus Surgery, Oral Surgery, Other (See Below) Other HEENT Surgeries/Procedures: oral infection Cardiovascular Surgical History: Reports: None Respiratory Surgical History: Reports: None GI Surgical History: Reports: Hernia Repair/Other Male Surgical History: Reports: None Endocrine Surgical History: Reports: None Neurological Surgical History: Reports: Laminectomy, Spinal Fusion Musculoskeletal Surgical History: Reports: Other (See Below) Other Musculoskeletal Surgeries/Procedures:: left shoulder surgery Oncologic Surgical History: Reports: None Dermatological Surgical History: Reports: None Social & Family History - Family History Family Medical History: No Pertinent Family History HEENT: Reports: None Cardiac: Reports: MT, Stent, Other (See Below) Other Cardiac Family History: Unsure of exact family history GI: Reports: Cholelithiasis Musculoskeletal: Reports: Gout Neurological: Reports: Alzheimers Disease Endocrine/Metabolic: Reports: Diabetes, type II Oncologic: Reports: Colon - Tobacco Use Tobacco Use Status *Q: Never Tobacco User - Caffeine Use Caffeine Use: Reports: None Other Caffeine Use: 2 [address] bottles of Dr Pepper per day. - Living Situation & Occupation Living situation: Reports: Single Occupation: Disabled ED ROS GENERAL - Review of Systems Review Of Systems: See Below Constitutional: Reports: No Symptoms HEENT: Reports: No Symptoms, Vertigo Cardiovascular: Reports: Chest Pain, Dyspnea on Exertion Endocrine: Reports: No Symptoms GI/Abdominal: Reports: No Symptoms : Reports: No Symptoms Musculoskeletal: Reports: Other (No new symptoms) Neurological: Reports: No Symptoms ED EXAM, GENERAL - Physical Exam Exam: See Below Exam Limited By: No Limitations General Appearance: Alert, No Apparent Distress Head: Atraumatic, Normocephalic Neck: Normal Inspection, Supple, Non-Tender, Full Range of Motion Respiratory/Chest: No Respiratory Distress, Lungs Clear, Decreased Breath Sounds. No: Crackles, Rales Cardiovascular: Regular Rate, Rhythm, No Murmur, Other (He is got marked swelling and edema in his left lower leg amputee on the right side. According to the patient his edema might be a little worse over the last few days but over the long-term is better.) GI/Abdominal: Normal Bowel Sounds, Soft, Non-Tender, Other (Significant morbid obesity) Back Exam: Normal Inspection. No: CVA Tenderness (L), CVA Tenderness (R) Neurological: Alert, Oriented, Normal Cognition Course - Vital Signs Last Recorded V/S: Last Vital Signs Temp 36.4 C 12/06/20 12:59 Pulse 73 12/06/20 12:59 Resp 18 12/06/20 12:59 BP 99/87 12/06/20 12:59 Pulse Ox 96 12/06/20 12:59 - Orders/Labs/Meds Orders: Active Orders 24 hr Category Date Time Status EKG 12 Lead [EKG Documentation Completion] [RC] STAT Care 12/06/20 13:12 Active Labs: Laboratory Tests 12/06/20 12/06/20 12/06/20 Range/Units 13:34 13:34 13:34 WBC 9.47 H (4.23-9.07) K/mm3 RBC 5.65 (4.63-6.08) M/mm3 Hgb 13.9 D (13.7-17.5) gm/dl Hct 48.8 (40.1-51.0) % MCV 86.4 D (79.0-92.2) fl MCH 24.6 L (25.7-32.2) pg MCHC 28.5 L (32.2-35.5) g/dl RDW Std Deviation 55.6 H (35.1-43.9) fL Plt Count 198 (163-337) K/mm3 MPV 11.2 (9.4-12.3) fl Neut % (Auto) 77.2 H (34.0-67.9) % Lymph % (Auto) 12.0 L (21.8-53.1) % Gilmer % (Auto) 7.1 (5.3-12.2) % Eos % (Auto) 2.9 (0.8-7.0) Baso % (Auto) 0.5 (0.1-1.2) % Neut # (Auto) 7.31 H (1.78-5.38) K/mm3 Lymph # (Auto) 1.14 L (1.32-3.57) K/mm3 Gilmer # (Auto) 0.67 (0.30-0.82) K/mm3 Eos # (Auto) 0.27 (0.04-0.54) K/mm3 Baso # (Auto) 0.05 (0.01-0.08) K/mm3 Manual Slide Review Abnormal smear PT 12.9 H (9.7-12.0) SECONDS INR 1.21 APTT 29.1 (21.7-31.4) SECONDS Sodium 145 (136-145) mEq/L Potassium 4.2 (3.5-5.1) mEq/L Chloride 103 (98-107) mEq/L Carbon Dioxide 38 H (21-32) mEq/L Anion Gap 8.2 (5-15) BUN 23 H (7-18) mg/dL Creatinine 1.2 (0.7-1.3) mg/dL Est Cr Clr Drug Dosing TNP Estimated GFR (MDRD) > 60 (>60) mL/min BUN/Creatinine Ratio 19.2 H (14-18) Glucose 208 H (70-99) mg/dL Calcium 8.7 (8.5-10.1) mg/dL Total Bilirubin 0.4 (0.2-1.0) mg/dL AST 16 (15-37) U/L ALT 24 (16-63) U/L Alkaline Phosphatase 128 H (46-116) U/L Troponin I < 0.017 (0.00-0.056) ng/mL NT-Pro-B Natriuret Pep (0-125) pg/mL Total Protein 6.3 L (6.4-8.2) g/dl Albumin 3.2 L (3.4-5.0) g/dl Globulin 3.1 gm/dL Albumin/Globulin Ratio 1.0 (1-2) 12/06/20 Range/Units 13:34 WBC (4.23-9.07) K/mm3 RBC (4.63-6.08) M/mm3 Hgb (13.7-17.5) gm/dl Hct (40.1-51.0) % MCV (79.0-92.2) fl MCH (25.7-32.2) pg MCHC (32.2-35.5) g/dl RDW Std Deviation (35.1-43.9) fL Plt Count (163-337) K/mm3 MPV (9.4-12.3) fl Neut % (Auto) (34.0-67.9) % Lymph % (Auto) (21.8-53.1) % Gilmer % (Auto) (5.3-12.2) % Eos % (Auto) (0.8-7.0) Baso % (Auto) (0.1-1.2) % Neut # (Auto) (1.78-5.38) K/mm3 Lymph # (Auto) (1.32-3.57) K/mm3 Gilmer # (Auto) (0.30-0.82) K/mm3 Eos # (Auto) (0.04-0.54) K/mm3 Baso # (Auto) (0.01-0.08) K/mm3 Manual Slide Review PT (9.7-12.0) SECONDS INR APTT (21.7-31.4) SECONDS Sodium (136-145) mEq/L Potassium (3.5-5.1) mEq/L Chloride (98-107) mEq/L Carbon Dioxide (21-32) mEq/L Anion Gap (5-15) BUN (7-18) mg/dL Creatinine (0.7-1.3) mg/dL Est Cr Clr Drug Dosing Estimated GFR (MDRD) (>60) mL/min BUN/Creatinine Ratio (14-18) Glucose (70-99) mg/dL Calcium (8.5-10.1) mg/dL Total Bilirubin (0.2-1.0) mg/dL AST (15-37) U/L ALT (16-63) U/L Alkaline Phosphatase (46-116) U/L Troponin I (0.00-0.056) ng/mL NT-Pro-B Natriuret Pep 1225 H (0-125) pg/mL Total Protein (6.4-8.2) g/dl Albumin (3.4-5.0) g/dl Globulin gm/dL Albumin/Globulin Ratio (1-2) Meds: Medications Discontinued Medications Generic Name Dose Route Start Last Admin Trade Name Stanford PRN Reason Stop Dose Admin Furosemide 40 mg 12/06/20 15:20 12/06/20 15:56 Furosemide 40 Mg/4 Ml Vial IVPUSH 12/06/20 15:21 40 mg NOW ONE Administration Potassium Chloride 20 meq 12/06/20 15:20 12/06/20 15:56 Potassium Chloride 20 Meq Tab.Er PO 12/06/20 15:21 20 meq ONETIME ONE Administration - Re-Assessments/Exams Free Text/Narrative Re-Assessment/Exam: 12/06/20 15:12 Chest x-ray shows cardiomegaly. Troponin is normal proBNP is elevated a little over 1200. Electrolytes look good give 40 mg of IV Lasix and 20 mEq of potassium chloride. The patient had a support hose taken off and now he thinks the edema in his leg looks a lot worse. 12/06/20 16:56 Patient received Lasix and the potassium is doing much better at this time at this point I am not can to change his medication but he needs close follow-up to ensure that he continues to do well. He wants to go home at this time and I think this is reasonable Departure - Departure Time of Disposition: 16:57 Disposition: Home, Self-Care 01 Clinical Impression: Atypical chest pain, Heart failure - Discharge Information Referrals: Abisai Lloyd MD [Primary Care Provider] - Forms: ED Department Discharge Additional Instructions: Return to the emergency room with any questions problems or worsening symptoms. At this point to be no medication changes. Follow-up with your regular physician at the end of this week for recheck Sepsis Event Note (ED) - Evaluation Sepsis Screening Result: No Definite Risk - Focused Exam Vital Signs: Vital Signs Temp Pulse Resp BP Pulse Ox 12/06/20 12:59 36.4 C 73 18 99/87 96 - My Orders Last 24 Hours: My Active Orders 12/06/20 13:12 EKG 12 Lead [EKG Documentation Completion] [RC] STAT - Assessment/Plan Last 24 Hours: My Active Orders 12/06/20 13:12 EKG 12 Lead [EKG Documentation Completion] [RC] STAT
--- NOTE | 2020-12-06 13:50 | CR ---
Chest: Portable view of the chest was obtained. Comparison: Prior chest x-ray 01/16/20. Heart is felt to be slightly enlarged. Upper mediastinum is normal. Lungs are clear with no acute parenchymal change. No acute osseous finding is appreciated. Impression: 1. Heart is felt to be slightly enlarged. 2. Nothing acute is otherwise seen. Diagnostic code #2
[2020-12-06] MEDS ORDERED: Furosemide 40 MG/4 ML VIAL IVPUSH ONE (15:20)
[2020-12-06] MEDS ORDERED: Potassium Chloride 20 MEQ Tab.ER PO ONE (15:20)
== END 2020-12-06 18:14 | disposition home or self-care (01) ==
LOC: JD.ED 12:46
DX: R07.89 Other chest pain (principal); I13.0 Hypertensive heart and chronic kidney disease with heart failure and stage 1 through stage 4 chronic kidney disease, or unspecified chronic kidney disease; E11.22 Type 2 diabetes mellitus with diabetic chronic kidney disease; N18.9 Chronic kidney disease, unspecified; I50.9 Heart failure, unspecified; I48.91 Unspecified atrial fibrillation; I25.10 Atherosclerotic heart disease of native coronary artery without angina pectoris; J44.9 Chronic obstructive pulmonary disease, unspecified; K21.9 Gastro-esophageal reflux disease without esophagitis; E66.9 Obesity, unspecified; Z79.4 Long term (current) use of insulin; Z79.899 Other long term (current) drug therapy; Z79.01 Long term (current) use of anticoagulants
CPT/HCPCS: 36415; 71045; 80053; 83880; 84484; 85025; 85610; 85730; 93005; 96374; 99285; A9270; J1940; 93010; 99284

== ENCOUNTER 2020-12-23 10:08 | Inpatient (IN) | payer OTHER, MEDICARE, MEDICAID ==
[2020-12-23] MEDS ORDERED: Clindamycin Phosphate in D5W 900 MG in Premix Bag 1 BAG IV ONE ×2 (10:48)
--- NOTE | 2020-12-23 10:53 | EDM.PDOC ---
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 BLOOD CULTURE [MREF] Stat 12/23/20 12:20 Oxygen Therapy [RC] ASDIRECTED 12/23/20 14:12 Admission Status [Patient Status] [ADT] Routine - Assessment/Plan Last 24 Hours: My Active Orders 12/23/20 10:46 EKG Documentation Completion [RC] STAT 12/23/20 10:47 Blood Glucose Check, Bedside [RC] ONETIME Blood Culture x2 Reflex Set [OM.PC] Stat 12/23/20 11:21 BLOOD CULTURE [MREF] Stat 12/23/20 11:33 BLOOD CULTURE [MREF] Stat 12/23/20 12:20 Oxygen Therapy [RC] ASDIRECTED 12/23/20 14:12 Admission Status [Patient Status] [ADT] Routine
--- NOTE | 2020-12-23 11:13 | CR ---
Chest: Portable view of the chest was obtained. Comparison: Prior chest x-rays of 11/06/20 and 01/16/20. Heart is enlarged. Upper mediastinum is within normal limits. Pulmonary vessels are slightly congested. No acute parenchymal change is seen. No acute osseous abnormality is appreciated. Impression: 1. Findings are suspicious for minimal CHF. Diagnostic code #3
[2020-12-23 11:45] LABS: HEMOGLOBIN A1C 8.8 %
--- NOTE | 2020-12-23 13:34 | CT ---
CT abdomen and pelvis Technique: Multiple axial sections were obtained from above the dome of the diaphragm inferiorly through the pubic symphysis. Intravenous and oral contrast were not utilized. Reconstructed coronal and sagittal images were obtained. Comparison: Prior CT abdomen and pelvis exam of 12/18/16. Findings: Patchy areas of increased density are seen within the left lung base. Difficult to exclude pneumonia if patient has infectious symptoms. Small pericardial effusion is seen. Liver shows no focal parenchymal abnormality. Spleen size is normal. Adrenal glands show no nodule. Pancreas is within normal limits. Increased density is seen within the gallbladder most likely representing gallstones. Kidneys show no abnormal calcifications. Cyst is noted off the lateral left kidney measuring 2.0 cm. Smaller cyst is noted off the upper left kidney measuring 1.0 cm. No ureteral dilatation or ureteral calculus is seen. Abdominal aorta shows diffuse atherosclerotic calcification which continues into the iliac vessels. No aneurysm is seen. No retroperitoneal adenopathy or mesenteric abnormalities are seen. No pelvic mass or adenopathy is seen. Fat-containing anterior abdominal wall hernia is seen. Diffuse increased density is seen within the subcutaneous fat. Skin thickening is noted within the mostly-anterior abdominal wall. Previous lumbar spine surgery is noted at L4-5 with trans-pedicle screws. Scattered degenerative change is noted throughout other portions of the spine. Impression: 1. Increased density within the subcutaneous fat as well as skin thickening mostly anteriorly. This presumably represents edema and is difficult to exclude cellulitis. 2. Increased density within the left lung base. Difficult to exclude pneumonia if patient has infectious symptoms. 3. Increased density within the gallbladder presumably representing gallstones. 4. Other findings as described above which are nonacute. Diagnostic code #3
[2020-12-23] MEDS ORDERED: Bisacodyl 10 MG Supp RECTAL PRN (15:56)
--- NOTE | 2020-12-23 15:56 | PCM.HP.2 ---
H&P History of Present Illness - General Date of Service: 12/23/20 Admit Problem/Dx: Admission Diagnosis/Problem Admission Diagnosis/Problem Abdominal pain Source of Information: Patient, Old Records, Provider, RN, RN Notes Reviewed History Limitations: Reports: No Limitations - History of Present Illness Initial Comments - Free Text/Narative: This is a 65-year-old male who presents to ED on 12/23/2020 via [place] [facility] form [facility] where he resides with abdominal pain and chills which developed last night. He reports diffuse redness and tenderness with abdominal wall below his umbilicus and right quadrant. 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 He states his stump has been slowly healing. He reports dyspnea with minimal exertion and needing oxygen recently. Denies sputum production but does report an occasional nonproductive cough. Chronic edema to left lower extremity. Denies any nausea or vomiting. In the ED twelve-lead EKG is obtained showing a sinus rhythm at 73 bpm with constanza rderline first-degree AV block and left atrial hypertrophy. There is initial poor R wave progression and decreased voltage in the limb leads. T wave inversion in V1 through V4 and flattening of T wave in V5 is noted in a minimally prolonged QT segment is also observed. Temp is 37 C. Pulse 78. Respirations 18. Blood pressure 129/61. Pulse ox 92%. Labs are obtained with a WBC of 8.71. Hemoglobin 13.9. Hematocrit 50.3. Platelet 191. Neutrophils 77%. There is no bandemia. INR is 1.27. aPTT is 31.4. Sodium is 144. Potassium 4.0. Chloride 102. Carbon dioxide 40. Anion gap 6.0. BUN is 21. Creatinine 1.0. GFR greater than 60. Glucose is 222. Calcium is 8.6. Magnesium 1.9. Total bilirubin 0.6. AST is 15, ALT 19, alkaline phosphatase 117. Troponin is less than 0.017. CRP is 6.3. Protein is 6.5. Albumin 3.3. Lipase is 43. Blood ethyl alcohol is 0.00. ESR is 2. Hemoglobin A1c is 8.8%. proBNP is 908. UA is obtained and is concentrated but negative. Chest x-ray is obtained showing findings suspicious for minimal CHF. CT of the abdomen and pelvis is obtained showing "1. Increased density within the subcutaneous fat as well as skin thickening mostly anteriorly. This presumably represents edema and is difficult to exclude cellulitis. 2. Increased density within the left lung base. Difficult to exclude pneumonia if patient has infectious symptoms. 3. Increased density within the gallbladder presumably representing gallstones. 4. Other findings as described above which are nonacute. Blood cultures were obtained and are pending. He started on clindamycin 900 mg IV. Patient does report having spilled hot coffee on his abdomen about a week ago but he was unable to to do this due to his body habitus. He does not think that it was blistered. There are no concerning signs for sepsis. Patient admitted to the medical floor for management of his cellulitis and mild CHF exacerbation. He carries a history of A. fib, VTE, CAD, cardiomyopathy, heart failure, HLD, hypertension, NH, PVD, stent placement, occlusion of the left carotid artery, CO PD, sleep apnea, hypoxia, GERD, chronic renal insufficiency, BPH, chronic back pain, gout, right below the knee amputation, CVA, migraines, spinal stenosis, postlaminectomy syndrome, depression, insomnia, opioid dependence, psychosis, chronic pain syndrome, type II DM, hypothyroidism, obesity, hypokalemia, hypomagnesemia. He is a full code. His PCP is Dr. Thrasher. Right Lower Abdominal Pain Score (Numeric/FACES): 6 - Related Data Allergies/Adverse Reactions: Allergies Allergy/AdvReac Type Severity Reaction Status Date / Time No Known Allergies Allergy Verified 12/23/20 15:58 Home Medications: Home Meds Melatonin 5 mg PO BEDTIME 03/10/19 [History] Furosemide 40 mg PO DAILY 01/17/20 [History] Metoprolol Succinate [Toprol XL 50mg] 50 mg PO QPM 01/17/20 [History] Sennosides [Senna] 17.2 mg PO BEDTIME PRN 01/17/20 [History] Tamsulosin [Flomax] 0.8 mg PO BEDTIME 01/17/20 [History] Fluticasone Propionate [Flovent HFA] 2 spray INH BID 01/20/20 [History] OLANZapine [Olanzapine] 20 mg PO QPM 01/20/20 [History] Acetaminophen 500 mg PO QID 12/23/20 [History] Acetaminophen 650 mg PO BID PRN 12/23/20 [History] Albuterol/Ipratropium [Combivent Respimat] 1 puff IH QID 12/23/20 [History] Aspirin [Aspirin EC] 81 mg PO DAILY 12/23/20 [History] Carbamide Peroxide [Debrox] 3 drop EARBOTH BEDTIME PRN 12/23/20 [History] Furosemide [Lasix] 20 mg PO 1200 12/23/20 [History] Gabapentin [Neurontin] 300 mg PO TID 12/23/20 [History] Lactulose 60 ml PO QPM 12/23/20 [History] Losartan [Cozaar] 25 mg PO DAILY 12/23/20 [History] Rivaroxaban [Xarelto] 20 mg PO QPM 12/23/20 [History] Sertraline [Zoloft] 25 mg PO BEDTIME 12/23/20 [History] Sertraline [Zoloft] 50 mg PO BEDTIME 12/23/20 [History] atorvaSTATin [Lipitor] 20 mg PO DAILY 12/23/20 [History] bisacodyL [Dulcolax] 10 mg RECTAL DAILY PRN 12/23/20 [History] traMADol [Ultram] 50 mg PO TID PRN 12/23/20 [History] Past Medical History HEENT History: Reports: Sinusitis, Other (See Below) Other HEENT History: sialodenitis, oral surgery, bilateral myopia Cardiovascular History: Reports: Afib, Blood Clots/VTE/DVT, CAD, Cardiomyopathy, Heart Failure, High Cholesterol, Hypertension, NH, PVD, Stents Other Cardiovascular History: occulusion and left carotid artery Respiratory History: Reports: COPD, Sleep Apnea Other Respiratory History: hypoxia Gastrointestinal History: Reports: GERD Genitourinary History: Reports: Acute Renal Failure, BPH, Chronic Renal Insuffiency SENIOR STRATEGY ANALYST History: Reports: None Musculoskeletal History: Reports: Back Pain, Chronic, Gout, Other (See Below) Other Musculoskeletal History: left back fusion.. Right below-knee amputation April 29, 2020 due to complications related to diabetes. Neurological History: Reports: CVA, Migraines Other Neuro History: spinal stenosis, cerviclagia, post-laminectomy syndrome Psychiatric History: Reports: Depression, Other (See Below) Other Psychiatric History: insomnia;mental and behavioral disorders, substance abuse history, opiod dependence, confusion, psychosis, somnolence, insomnia, chronic pain syndrome Endocrine/Metabolic History: Reports: Diabetes, Type II, Hypothyroidism, Obesity/BMI 30+ Hematologic History: Reports: Other (See Below) Other Hematologic History: hypokalemia, hypomagnesia Immunologic History: Reports: None Oncologic (Cancer) History: Reports: None Dermatologic History: Reports: Cellulitis Other Dermatologic History: ingrown toe nails, skin disorder - Infectious Disease History Infectious Disease History: Reports: Chicken Pox, Measles, Mumps, Novel Coronavirus - Past Surgical History Head Surgeries/Procedures: Reports: None HEENT Surgical History: Reports: Naso-Sinus Surgery, Oral Surgery, Other (See Below) Other HEENT Surgeries/Procedures: oral infection Cardiovascular Surgical History: Reports: None Respiratory Surgical History: Reports: None GI Surgical History: Reports: Hernia Repair/Other Male Surgical History: Reports: None Endocrine Surgical History: Reports: None Neurological Surgical History: Reports: Laminectomy, Spinal Fusion Musculoskeletal Surgical History: Reports: Other (See Below) Other Musculoskeletal Surgeries/Procedures:: left shoulder surgery Oncologic Surgical History: Reports: None Dermatological Surgical History: Reports: None Social & Family History - Family History Family Medical History: No Pertinent Family History HEENT: Reports: None Cardiac: Reports: NH, Stent, Other (See Below) Other Cardiac Family History: Unsure of exact family history GI: Reports: Cholelithiasis Musculoskeletal: Reports: Gout Neurological: Reports: Alzheimers Disease Endocrine/Metabolic: Reports: Diabetes, type II Oncologic: Reports: Colon - Tobacco Use Tobacco Use Status *Q: Never Tobacco User - Caffeine Use Caffeine Use: Reports: Soda Other Caffeine Use: 2 [address] Pepper per day. - Alcohol Use Days Per Week of Alcohol Use: 0 Number of Drinks Per Day: 0 (For the last 7 months since he has been in the group home) Total Drinks Per Week: 0 - Recreational Drug Use Recreational Drug Use: No - Living Situation & Occupation Living situation: Reports: Single, Extended Care Facility (Patient is a resident of [facility] for about 7 months.) Occupation: Disabled H&P Review of Systems - Review of Systems: Review Of Systems: See Below General: Reports: Chills, Malaise, Weakness, Fatigue, Decreased Appetite. Denies: Fever, Diaphoresis HEENT: Reports: No Symptoms. Denies: Headaches, Sore Throat Pulmonary: Reports: Shortness of Breath, Cough. Denies: Wheezing, Pleuritic Chest Pain, Sputum Cardiovascular: Reports: Dyspnea on Exertion, Orthopnea, Edema. Denies: Chest Pain, Palpitations, Lightheadedness, Syncope, Claudication Gastrointestinal: Reports: Abdominal Pain (Abdominal wall pain ). Denies: Constipation, Diarrhea, Nausea, Vomiting Genitourinary: Denies: Pain Musculoskeletal: Reports: Neck Pain (chronic ), Shoulder Pain (chronic), Back Pain (chronic ), Other (LLE phantom limb pain ) Skin: Reports: Rash (abdominal wall ), Erythema (abdominal wall) Psychiatric: Reports: No Symptoms. Denies: Confusion Neurological: Reports: No Symptoms, Difficulty Walking (Hx/o right below the knee amputation ). Denies: Confusion, Dizziness, Headache, Numbness, Pre- Existing Deficit, Syncope, Tingling, Weakness, Gait Disturbance Hematologic/Lymphatic: Reports: No Symptoms Immunologic: Reports: No Symptoms Exam - Exam Exam: See Below - Vital Signs Vital Signs: Last Vital Signs Temp 97.7 F 12/23/20 15:02 Pulse 74 12/23/20 15:02 Resp 16 12/23/20 15:02 BP 129/63 12/23/20 15:02 Pulse Ox 98 12/23/20 15:02 Weight: 328 lb 1.6 oz - Exam Quality Assessment: Supplemental Oxygen (4L), DVT Prophylaxis. No: Urinary Catheter General: Alert, Oriented, Cooperative. No: Mild Distress HEENT: Conjunctiva Clear, EACs Clear, Mucosa Moist & [place], Posterior Pharynx Clear Neck: Supple, Trachea Midline Lungs: Decreased Breath Sounds, Rhonchi (mild ), Wheezing Cardiovascular: Regular Rate, Regular Rhythm GI/Abdominal Exam: Normal Bowel Sounds, Soft, Tender (diffusely tender abdominal wall in lower quadrants ), Hernia (umbilical) (Male) Exam: Deferred Rectal (Males) Exam: Deferred Back Exam: Normal Inspection, Decreased Range of Motion Extremities: Normal Inspection, Normal Range of Motion, Non-Tender, Normal Capillary Refill, Pedal Edema (4+ on left side ), Other (Right below the knee amputation) Skin: Warm, Dry, Intact Neurological: Cranial Nerves Intact (Grossly ) Neuro Extensive - Mental Status: Alert, Oriented x3, Normal Mood/Affect - Patient Data Lab Results Last 24 hrs: Laboratory Results - last 24 hr 12/23/20 12/23/2012/23/21 Range/Units 10:56 11:00 11:00 WBC (4.23-9.07) K/mm3 RBC (4.63-6.08) M/mm3 Hgb (13.7-17.5) gm/dl Hct (40.1-51.0) % MCV (79.0-92.2) fl MCH (25.7-32.2) pg MCHC (32.2-35.5) g/dl RDW Std Deviation (35.1-43.9) fL Plt Count (163-337) K/mm3 MPV (9.4-12.3) fl Neutrophils % (Manual) (40-60) % Band Neutrophils % (0-10) % Lymphocytes % (Manual) (20-40) % Atypical Lymphs % % Monocytes % (Manual) (2-10) % Eosinophils % (Manual) (0.8-7.0) % Basophils % (Manual) (0.2-1.2) Platelet Estimate Hypochromasia Anisocytosis RBC Morph Comment ESR (0-15) mm/hr PT (9.7-12.0) SECONDS INR APTT (21.7-31.4) SECONDS Sodium (136-145) mEq/L Potassium (3.5-5.1) mEq/L Chloride (98-107) mEq/L Carbon Dioxide (21-32) mEq/L Anion Gap (5-15) BUN (7-18) mg/dL Creatinine (0.7-1.3) mg/dL Est Cr Clr Drug Dosing mL/min Estimated GFR (MDRD) (>60) mL/min BUN/Creatinine Ratio (14-18) Glucose (70-99) mg/dL POC Glucose 182 H (70-99) mg/dL Hemoglobin A1c ( - 5.6) % Calcium (8.5-10.1) mg/dL Magnesium (1.8-2.4) mg/dL Total Bilirubin (0.2-1.0) mg/dL AST (15-37) U/L ALT (16-63) U/L Alkaline Phosphatase (46-116) U/L Troponin I (0.00-0.056) ng/mL C-Reactive Protein (<1.0) mg/dL NT-Pro-B Natriuret Pep (0-125) pg/mL Total Protein (6.4-8.2) g/dl Albumin (3.4-5.0) g/dl Globulin gm/dL Albumin/Globulin Ratio (1-2) Lipase (73-393) U/L Urine Color Yellow (Yellow) Urine Appearance Clear (Clear) Urine pH 5.5 (5.0-8.0) Ur Specific [place] > or = 1.030 (1.005-1.030) Urine Protein Negative (Negative) Urine Glucose (UA) Negative (Negative) Urine Ketones Negative (Negative) Urine Occult Blood Negative (Negative) Urine Nitrite Negative (Negative) Urine Bilirubin Negative (Negative) Urine Urobilinogen 1.0 (0.2-1.0) Ur Leukocyte Esterase Negative (Negative) Urine RBC 0-5 (0-5) /hpf Urine WBC 0-5 (0-5) /hpf Ur Squamous Epith Cells 0-5 (0-5) /hpf Urine Bacteria Few (FEW) /hpf Urine Mucus Rare (FEW) /hpf Ethyl Alcohol (0.00) gm% SARS-CoV-2 RNA (ANSELMO) Negative (NEGATIVE) 12/23/20 12/23/20 12/23/20 Range/Units 11:21 11:21 11:21 WBC 8.71 (4.23-9.07) K/mm3 RBC 5.78 (4.63-6.08) M/mm3 Hgb 13.9 (13.7-17.5) gm/dl Hct 50.3 (40.1-51.0) % MCV 87.0 (79.0-92.2) fl MCH 24.0 L (25.7-32.2) pg MCHC 27.6 L (32.2-35.5) g/dl RDW Std Deviation 54.2 H (35.1-43.9) fL Plt Count 191 (163-337) K/mm3 MPV 10.9 (9.4-12.3) fl Neutrophils % (Manual) 77 H (40-60) % Band Neutrophils % 0 (0-10) % Lymphocytes % (Manual) 11 L (20-40) % Atypical Lymphs % 0 % Monocytes % (Manual) 9 (2-10) % Eosinophils % (Manual) 3 (0.8-7.0) % Basophils % (Manual) 0 L (0.2-1.2) Platelet Estimate Adequate Hypochromasia 2+ moderate Anisocytosis 2+ moderate RBC Morph Comment Abmormal ESR (0-15) mm/hr PT 13.5 H (9.7-12.0) SECONDS INR 1.27 APTT 31.4 (21.7-31.4) SECONDS Sodium 144 (136-145) mEq/L Potassium 4.0 (3.5-5.1) mEq/L Chloride 102 (98-107) mEq/L Carbon Dioxide 40 H (21-32) mEq/L Anion Gap 6.0 (5-15) BUN 21 H (7-18) mg/dL Creatinine 1.0 (0.7-1.3) mg/dL Est Cr Clr Drug Dosing 80.83 mL/min Estimated GFR (MDRD) > 60 (>60) mL/min BUN/Creatinine Ratio 21.0 H (14-18) Glucose 222 H (70-99) mg/dL POC Glucose (70-99) mg/dL Hemoglobin A1c ( - 5.6) % Calcium 8.6 (8.5-10.1) mg/dL Magnesium 1.9 (1.8-2.4) mg/dL Total Bilirubin 0.6 (0.2-1.0) mg/dL AST 15 (15-37) U/L ALT 19 (16-63) U/L Alkaline Phosphatase 117 H (46-116) U/L Troponin I < 0.017 (0.00-0.056) ng/mL C-Reactive Protein 6.3 H* (<1.0) mg/dL NT-Pro-B Natriuret Pep (0-125) pg/mL Total Protein 6.5 (6.4-8.2) g/dl Albumin 3.3 L (3.4-5.0) g/dl Globulin 3.2 gm/dL Albumin/Globulin Ratio 1.0 (1-2) Lipase 43 L (73-393) U/L Urine Color (Yellow) Urine Appearance (Clear) Urine pH (5.0-8.0) Ur Specific [place] (1.005-1.030) Urine Protein (Negative) Urine Glucose (UA) (Negative) Urine Ketones (Negative) Urine Occult Blood (Negative) Urine Nitrite (Negative) Urine Bilirubin (Negative) Urine Urobilinogen (0.2-1.0) Ur Leukocyte Esterase (Negative) Urine RBC (0-5) /hpf Urine WBC (0-5) /hpf Ur Squamous Epith Cells (0-5) /hpf Urine Bacteria (FEW) /hpf Urine Mucus (FEW) /hpf Ethyl Alcohol 0.00 (0.00) gm% SARS-CoV-2 RNA (ANSELMO) (NEGATIVE) 12/23/20 12/23/20 12/23/20 Range/Units 11:21 11:21 11:21 WBC (4.23-9.07) K/mm3 RBC (4.63-6.08) M/mm3 Hgb (13.7-17.5) gm/dl Hct (40.1-51.0) % MCV (79.0-92.2) fl MCH (25.7-32.2) pg MCHC (32.2-35.5) g/dl RDW Std Deviation (35.1-43.9) fL Plt Count (163-337) K/mm3 MPV (9.4-12.3) fl Neutrophils % (Manual) (40-60) % Band Neutrophils % (0-10) % Lymphocytes % (Manual) (20-40) % Atypical Lymphs % % Monocytes % (Manual) (2-10) % Eosinophils % (Manual) (0.8-7.0) % Basophils % (Manual) (0.2-1.2) Platelet Estimate Hypochromasia Anisocytosis RBC Morph Comment ESR 2 (0-15) mm/hr PT (9.7-12.0) SECONDS INR APTT (21.7-31.4) SECONDS Sodium (136-145) mEq/L Potassium (3.5-5.1) mEq/L Chloride (98-107) mEq/L Carbon Dioxide (21-32) mEq/L Anion Gap (5-15) BUN (7-18) mg/dL Creatinine (0.7-1.3) mg/dL Est Cr Clr Drug Dosing mL/min Estimated GFR (MDRD) (>60) mL/min BUN/Creatinine Ratio (14-18) Glucose (70-99) mg/dL POC Glucose (70-99) mg/dL Hemoglobin A1c 8.8 H ( - 5.6) % Calcium (8.5-10.1) mg/dL Magnesium (1.8-2.4) mg/dL Total Bilirubin (0.2-1.0) mg/dL AST (15-37) U/L ALT (16-63) U/L Alkaline Phosphatase (46-116) U/L Troponin I (0.00-0.056) ng/mL C-Reactive Protein (<1.0) mg/dL NT-Pro-B Natriuret Pep 908 H (0-125) pg/mL Total Protein (6.4-8.2) g/dl Albumin (3.4-5.0) g/dl Globulin gm/dL Albumin/Globulin Ratio (1-2) Lipase (73-393) U/L Urine Color (Yellow) Urine Appearance (Clear) Urine pH (5.0-8.0) Ur Specific [place] (1.005-1.030) Urine Protein (Negative) Urine Glucose (UA) (Negative) Urine Ketones (Negative) Urine Occult Blood (Negative) Urine Nitrite (Negative) Urine Bilirubin (Negative) Urine Urobilinogen (0.2-1.0) Ur Leukocyte Esterase (Negative) Urine RBC (0-5) /hpf Urine WBC (0-5) /hpf Ur Squamous Epith Cells (0-5) /hpf Urine Bacteria (FEW) /hpf Urine Mucus (FEW) /hpf Ethyl Alcohol (0.00) gm% SARS-CoV-2 RNA (ANSELMO) (NEGATIVE) Result Diagrams: 12/23/20 11:21 12/23/20 11:21 Sepsis Event Note - Focused Exam Vital Signs: Vital Signs Temp Temp Pulse Pulse Resp BP BP 12/23/20 15:02 97.7 F 74 16 129/63 12/23/20 10:45 98.6 F 78 18 129/61 Pulse Ox 12/23/20 15:02 98 12/23/20 10:45 92 L - Problem List (1) CHF exacerbation SNOMED Code(s): 475939673, 01263344304964 ICD Code: I50.9 - HEART FAILURE, UNSPECIFIED Status: Acute Priority: Medium Current Visit: Yes Qualifiers: Heart failure type: unspecified Qualified Code(s): I50.9 - Heart failure, unspecified (2) Cardiomyopathy SNOMED Code(s): 68282548 ICD Code: I42.9 - CARDIOMYOPATHY, UNSPECIFIED Status: Chronic Priority: Medium Current Visit: Yes Qualifiers: Cardiomyopathy type: unspecified Qualified Code(s): I42.9 - Cardiomyopathy, unspecified (3) Chronic neck pain SNOMED Code(s): 3580573336132 ICD Code: M54.2 - CERVICALGIA; G89.29 - OTHER CHRONIC PAIN Status: Chronic Priority: Low Current Visit: No (4) Gout SNOMED Code(s): 22016246 ICD Code: M10.9 - GOUT, UNSPECIFIED Status: Chronic Priority: Low Current Visit: No Qualifiers: Gout site: unspecified site Gout etiology: unspecified cause Chronicity: chronic Presence of tophus: without tophus Qualified Code(s): M1A.9XX0 - Chronic gout, unspecified, without tophus (tophi) (5) Right below-knee amputee SNOMED Code(s): 194059242, 719931745, 773008508 ICD Code: Z89.511 - ACQUIRED ABSENCE OF RIGHT LEG BELOW KNEE Status: Chronic Priority: Medium Current Visit: Yes (6) Depression SNOMED Code(s): 07131228 ICD Code: F32.9 - MAJOR DEPRESSIVE DISORDER, SINGLE EPISODE, UNSPECIFIED Status: Chronic Priority: Low Current Visit: No Qualifiers: Depression Type: other depression Qualified Code(s): F32.89 - Other specified depressive episodes (7) Insomnia SNOMED Code(s): 809437821 ICD Code: G47.00 - INSOMNIA, UNSPECIFIED Status: Chronic Priority: Low Current Visit: No Qualifiers: Insomnia type: unspecified Qualified Code(s): G47.00 - Insomnia, unspecified (8) History of substance abuse SNOMED Code(s): 759003721 ICD Code: F19.11 - OTHER PSYCHOACTIVE SUBSTANCE ABUSE, IN REMISSION Status: Chronic Priority: Low Current Visit: No (9) Opioid dependence SNOMED Code(s): 18837902 ICD Code: F11.20 - OPIOID DEPENDENCE, UNCOMPLICATED Status: Chronic Priority: Medium Current Visit: Yes Qualifiers: Substance use status: with unspecified opioid-induced disorder Qualified Code(s): F11.29 - Opioid dependence with unspecified opioid-induced disorder (10) Post laminectomy syndrome SNOMED Code(s): 16077632 ICD Code: M96.1 - POSTLAMINECTOMY SYNDROME, NOT ELSEWHERE CLASSIFIED Status: Chronic Priority: Low Current Visit: No (11) Chronic pain syndrome SNOMED Code(s): 286258041 ICD Code: G89.4 - CHRONIC PAIN SYNDROME Status: Chronic Priority: Low Current Visit: No (12) Obesity SNOMED Code(s): 311770002, 633991442 ICD Code: E66.9 - OBESITY, UNSPECIFIED Status: Chronic Priority: Low Current Visit: Yes Qualifiers: Obesity type: unspecified obesity type Obesity classification: adult class 3 (BMI >= 40) Serious obesity comorbidity presence: with serious comorbidity Body mass index: BMI 40.0-44.9 Qualified Code(s): E66.01 - Morbid (severe) obesity due to excess calories; Z68.41 - Body mass index [BMI]40.0-44.9, adult (13) History of hypokalemia SNOMED Code(s): 809618722 ICD Code: Z86.39 - PERSONAL HISTORY OF ENDO, NUTRITIONAL AND METABOLIC DISEASE Status: Chronic Priority: Low Current Visit: No (14) Cellulitis, abdominal wall SNOMED Code(s): 38550822 ICD Code: L03.311 - CELLULITIS OF ABDOMINAL WALL Status: Acute Priority: High Current Visit: Yes (15) Hypomagnesemia SNOMED Code(s): 687709925 ICD Code: E83.42 - HYPOMAGNESEMIA Status: Acute Priority: Medium Current Visit: No Onset Date: 07/21/15 Problem Details: - Replete prior to d/c (16) Benign prostatic hyperplasia SNOMED Code(s): 531554580 ICD Code: N40.0 - BENIGN PROSTATIC HYPERPLASIA WITHOUT LOWER URINRY TRACT SYMP Status: Chronic Priority: Low Current Visit: No Qualifiers: Lower urinary tract symptom presence: unspecified whether lower urinary tract symptoms present Qualified Code(s): N40.0 - Benign prostatic hyperplasia without lower urinary tract symptoms (17) CKD (chronic kidney disease) SNOMED Code(s): 146064860 ICD Code: N18.9 - CHRONIC KIDNEY DISEASE, UNSPECIFIED Status: Chronic Priority: Medium Current Visit: No Qualifiers: Chronic kidney disease stage: unspecified stage Qualified Code(s): N18.9 - Chronic kidney disease, unspecified (18) COPD (chronic obstructive pulmonary disease) SNOMED Code(s): 28623624 ICD Code: J44.9 - CHRONIC OBSTRUCTIVE PULMONARY DISEASE, UNSPECIFIED Status: Chronic Priority: Medium Current Visit: No Qualifiers: COPD type: unspecified COPD Qualified Code(s): J44.9 - Chronic obstructive pulmonary disease, unspecified (19) Carotid occlusion, left SNOMED Code(s): 654445951401802 ICD Code: I65.22 - OCCLUSION AND STENOSIS OF LEFT CAROTID ARTERY Status: Chronic Priority: Low Current Visit: No (20) Chronic back pain SNOMED Code(s): 157464769 ICD Code: M54.9 - DORSALGIA, UNSPECIFIED; G89.29 - OTHER CHRONIC PAIN Status: Chronic Priority: Low Current Visit: No Qualifiers: Back pain location: back pain in unspecified location Back pain laterality: unspecified Qualified Code(s): M54.9 - Dorsalgia, unspecified; G89.29 - Other chronic pain (21) Chronic migraine SNOMED Code(s): 446952528 ICD Code: G43.709 - CHRONIC MIGRAINE W/O AURA, NOT INTRACTABLE, W/O STAT MIGR Status: Chronic Priority: Low Current Visit: No (22) Coronary artery disease SNOMED Code(s): 60881488 ICD Code: I25.10 - ATHSCL HEART DISEASE OF [place] CORONARY ARTERY W/O ANG PCTRS Status: Chronic Priority: Low Current Visit: No Qualifiers: Coronary Disease-Associated Artery/Lesion type: unspecified vessel or lesion type [place] vs. transplanted heart: unspecified whether [place] or transplanted heart Associated angina: angina presence unspecified (23) Diabetes mellitus type 2 in obese SNOMED Code(s): 05389181 ICD Code: E11.9 - TYPE 2 DIABETES MELLITUS WITHOUT COMPLICATIONS; E66.9 - OBESITY, UNSPECIFIED Status: Chronic Priority: Medium Current Visit: No (24) Edema of lower extremity SNOMED Code(s): 890606134 ICD Code: R60.0 - LOCALIZED EDEMA Status: Chronic Priority: High Current Visit: Yes (25) GERD (gastroesophageal reflux disease) SNOMED Code(s): 366567020 ICD Code: K21.9 - GASTRO-ESOPHAGEAL REFLUX DISEASE WITHOUT ESOPHAGITIS Status: Chronic Priority: Low Current Visit: No Qualifiers: Esophagitis presence: esophagitis presence not specified Qualified Code(s): K21.9 - Gastro-esophageal reflux disease without esophagitis (26) History of CVA (cerebrovascular accident) SNOMED Code(s): 762840850 ICD Code: Z86.73 - PRSNL HX OF TIA (TIA), AND CEREB INFRC W/O RESID DEFICITS Status: Chronic Priority: Low Current Visit: No (27) History of NH (myocardial infarction) SNOMED Code(s): 261862203 ICD Code: I25.2 - OLD MYOCARDIAL INFARCTION Status: Chronic Priority: Low Current Visit: No (28) History of deep vein thrombosis SNOMED Code(s): 970929676 ICD Code: Z86.718 - PERSONAL HISTORY OF OTHER VENOUS THROMBOSIS AND EMBOLISM Status: Chronic Priority: Low Current Visit: No (29) Obstructive sleep apnea SNOMED Code(s): 19546805 ICD Code: G47.33 - OBSTRUCTIVE SLEEP APNEA (ADULT) (PEDIATRIC) Status: Chronic Priority: Medium Current Visit: No (30) Paroxysmal atrial fibrillation SNOMED Code(s): 769730047 ICD Code: I48.0 - PAROXYSMAL ATRIAL FIBRILLATION Status: Chronic Priority: Medium Current Visit: No (31) Stented coronary artery Status: Chronic Priority: Low Current Visit: No (32) Resides in [facility] facility SNOMED Code(s): 481735417 ICD Code: Z78.9 - OTHER SPECIFIED HEALTH STATUS Status: Chronic Priority: Low Current Visit: Yes Problem List Initiated/Reviewed/Updated: Yes Orders Last 24hrs: Active Orders 24 hr Category Date Time Status Admission Status [Patient Status] [ADT] Routine ADT 12/23/20 14:12 Active Blood Glucose Check, Bedside [RC] ONETIME Care 12/23/20 10:47 Active Oxygen Therapy [RC] ASDIRECTED Care 12/23/20 12:20 Active BLOOD CULTURE [MREF] Stat Lab 12/23/20 11:21 Received BLOOD CULTURE [MREF] Stat Lab 12/23/20 11:33 Received Blood Culture x2 Reflex Set [OM.PC] Stat Oth 12/23/20 10:47 Ordered Resuscitation Status Routine Resus Stat 12/23/20 15:46 Ordered Assessment/Plan Comment:: Admittsion date: 12/23/2020: * 65-year-old male who presents to ED via [facility] with abdominal pain and chills which developed last night * History of A. fib, VTE, CAD, cardiomyopathy, heart failure, HLD, hypertension, NH, PVD, stent placement, occlusion of the left carotid artery, COPD, sleep apnea, hypoxia, GERD, chronic renal insufficiency, BPH, chronic back pain, gout, right below the knee amputation, CVA, migraines, spinal stenosis, postlaminectomy syndrome, depression, insomnia, opioid dependence, psychosis, chronic pain syndrome, type II DM, hypothyroidism, obesity, hypokalemia, hypomagnesemia * Resides at [facility] * Reports diffuse redness and tenderness with abdominal wall below his umbilicus and right quadrant * Reports dyspnea with minimal exertion and needing oxygen recently * Denies sputum production but does report an occasional nonproductive cough * Chronic edema to left lower extremity * Denies any nausea or vomiting * Patient does report having spilled hot coffee on his abdomen about a week ago but he was unable to to do this due to his body habitus. He does not think that it was blistered. * 12-lead EKG is obtained showing a sinus rhythm at 73 bpm with borderline first-degree AV block and left atrial hypertrophy. There is initial poor R wave progression and decreased voltage in the limb leads. T wave inversion in V1 through V4 and flattening of T wave in V5 is noted in a minimally prolon ged QT segment is also observed. * Labs are obtained: * WBC8.71. * Hemoglobin 13.9. * Hematocrit 50.3. * Platelet 191. * Neutrophils 77%. There is no bandemia. * INR 1.27. * aPTT 31.4. * Sodium 144. * Potassium 4.0. * Chloride 102. * Carbon dioxide 40. * Anion gap 6.0. * BUN 21. Creatinine 1.0. GFR greater than 60. * Glucose 222. * Calcium 8.6. * Magnesium 1.9. * Total bilirubin 0.6. * AST 15, ALT 19, alkaline phosphatase 117. * Troponin is less than 0.017. * CRP 6.3. * Protein i6.5. * Albumin 3.3. * Lipase 43. * Blood ethyl alcohol 0.00. * ESR 2. * Hemoglobin A1c 8.8%. * proBNP 908. * UA is obtained and is concentrated but negative. * Blood cultures were obtained and are pending * Chest x-ray is obtained showing findings suspicious for minimal CHF. * CT of the abdomen and pelvis is obtained showing: * 1. Increased density within the subcutaneous fat as well as skin thickening mostly anteriorly. This presumably represents edema and is difficult to exclude cellulitis. * 2. Increased density within the left lung base. Difficult to exclude pneumonia if patient has infectious symptoms. * 3. Increased density within the gallbladder presumably representing gallstones. * 4. Other findings as described above which are nonacute. * He started on clindamycin 900 mg IV. * There are no concerning signs for sepsis. * Patient admitted to the medical floor for management of his cellulitis and mild CHF exacerbation. PLAN: Cellulitis, abdominal wall Resides in [facility] facility * Check lactic acid * Switch from clindamycin to Rocephin 2gm daily after discussion with Dr. Bigg chapman * MRSA screen * Daily labs * Monitor for signs of drainage * Monitor for signs of abscess (none seen on CT of abdomen) * Review prior skin wound cultures * Await blood cultures CHF exacerbation, mild Cardiomyopathy Edema of lower extremity * 40mg IVP Lasix now * 40mg IVP Lasix BID * Hold home PO Lasix * Monitor output * Telemetry * Review prior echocardiograms * Consider echo * 2gm sodium restriction * 1.5L fluid restriction * O2 as needed to keep saturations >88% * Monitor daily labs History of CVA (cerebrovascular accident) History of NH (myocardial infarction) History of deep vein thrombosis Paroxysmal atrial fibrillation Stented coronary artery Carotid occlusion, left Coronary artery disease * Continue home Xarelto * Continue home statin * Telemetry * No acute concerns History of substance abuse Opioid dependence Post laminectomy syndrome Chronic pain syndrome Chronic neck pain Right below-knee amputee Chronic back pain Chronic migraine * Pain medications as ordered * PT/OT * Up to chair * No acute concerns Gout * No acute concerns Depression * No acute concerns * Home medications as ordered Insomnia * No acute concerns * Continue home melatonin Obesity * No acute concerns * [employer] consultation History of hypokalemia Hypomagnesemia * Monitor labs * Supplement as needed Benign prostatic hyperplasia * No acute concerns * Continue home medications CKD (chronic kidney disease) * No acute concerns * Monitor output * Monitor labs * Hold home Losartan for now COPD (chronic obstructive pulmonary disease) Obstructive sleep apnea * RT consultation * Home respiratory meds as ordered Diabetes mellitus type 2 in obese * QID AC and bedtime glucose checks * Medium intensity sliding scale insulin * Diabetic diet GERD (gastroesophageal reflux disease) * No acute concerns * Monitor Code status: Full code PCP: Dr. Lloyd DVT prophylaxis: Home Xarelto Social: Patient resides at [facility] Disposition: Patient admitted for management of abdominal wall cellulitis and mild CHF exacerbation. Length of stay likely 2 to 3 days. - Mortality Measure Prognosis:: Good
[2020-12-23] MEDS ORDERED: Furosemide 40 MG/4 ML VIAL IVPUSH ONE (16:15)
[2020-12-23] MEDS ORDERED: Sennosides 8.6 MG Tab PO PRN (16:21)
[2020-12-23] MEDS ORDERED: Non-Formulary Medication 1 Each (Acetaminophen 500 MG Tablet) PO SCH (17:00)
[2020-12-23] MEDS: Metoprolol Succinate 50 MG Tab.ER PO SCH (18:22)
[2020-12-23] MEDS: OLANZapine 5 MG Tab PO SCH (18:23)
[2020-12-23] MEDS: Rivaroxaban 10 MG Tab PO SCH (18:23)
[2020-12-23] MEDS: Lactulose Soln 10 GM/15 ML 30 ML UD Cup PO SCH (18:23)
[2020-12-23] MEDS: cefTRIAXone 2 GM in Sodium Chloride 0.9% 100 ML IV SCH (18:24)
[2020-12-23] MEDS: Insulin Lispro 100 UNIT/ML 10 ML Vial SUBCUT SCH ×2 (18:24→21:56)
[2020-12-23] MEDS: Albuterol/Ipratropium 3.0-0.5 MG/3 ML Neb Soln INH SCH (20:51)
[2020-12-23] MEDS ORDERED: Sertraline 50 MG Tab PO SCH (21:00)
[2020-12-23] MEDS: Melatonin 3 MG Tab PO SCH (21:54)
[2020-12-23] MEDS: Tamsulosin 0.4 MG Cap.ER PO SCH (21:54)
[2020-12-23] MEDS: Gabapentin 300 MG Cap PO SCH (21:55)
[2020-12-23] MEDS: Sertraline 25 MG Tab PO SCH (21:56)
[2020-12-23] MEDS: traMADol 50 MG Tab PO PRN (21:57)
[2020-12-24] MEDS: Albuterol/Ipratropium 3.0-0.5 MG/3 ML Neb Soln INH SCH ×4 (03:12→21:11)
[2020-12-24] MEDS: Furosemide 40 MG/4 ML VIAL IVPUSH SCH ×2 (06:46→13:00)
--- NOTE | 2020-12-24 07:24 | PCM.PN ---
- General Info Date of Service: 12/24/20 Admission Dx/Problem (Free Text): Admission Diagnosis/Problem Admission Diagnosis/Problem Abdominal pain Functional Status: Reports: Pain Controlled, Tolerating Diet, Ambulating, Urinating, Incentive Spirometry. Denies: New Symptoms - Review of Systems General: Reports: No Symptoms, Weakness, Fatigue. Denies: Fever, Malaise, Chills HEENT: Reports: No Symptoms. Denies: Headaches, Sore Throat Pulmonary: Reports: Shortness of Breath (improved ), Cough. Denies: Sputum, Hemoptysis Cardiovascular: Reports: Dyspnea on Exertion, Edema (chroinc ). Denies: Palpitations Gastrointestinal: Reports: Abdominal Pain (abdominal wall pain 2/2 cellulitis/edema). Denies: Constipation, Diarrhea, Nausea, Vomiting Genitourinary: Reports: No Symptoms. Denies: Pain Musculoskeletal: Reports: Neck Pain (chroinc ), Shoulder Pain (chronic ), Leg Pain (phantom left ), Joint Pain (hips, knees ) Skin: Reports: Rash (to abdomen). Denies: Cyanosis Neurological: Reports: Pre-Existing Deficit (Right below the knee amputation), Difficulty Walking. Denies: Confusion, Dizziness, Headache, Numbness, Syncope, Tingling, Weakness Psychiatric: Reports: No Symptoms - Patient Data Vitals - Most Recent: Last Vital Signs Temp 98.2 F 12/24/20 06:45 Pulse 73 12/24/20 06:45 Resp 20 12/24/20 06:45 BP 156/56 H 12/24/20 06:45 Pulse Ox 94 L 12/24/20 06:45 Weight - Most Recent: 322 lb 4.8 oz I&O - Last 24 Hours: Intake & Output 12/23/20 12/24/20 12/24/20 22:59 06:59 14:59 Intake Total 120 400 Balance 120 400 Lab Results Last 24 Hours: Laboratory Results - last 24 hr 12/23/20 12/23/20 12/23/20 Range/Units 10:56 11:00 11:00 WBC (4.23-9.07) K/mm3 RBC (4.63-6.08) M/mm3 Hgb (13.7-17.5) gm/dl Hct (40.1-51.0) % MCV (79.0-92.2) fl MCH (25.7-32.2) pg MCHC (32.2-35.5) g/dl RDW Std Deviation (35.1-43.9) fL Plt Count (163-337) K/mm3 MPV (9.4-12.3) fl Neut % (Auto) (34.0-67.9) % Lymph % (Auto) (21.8-53.1) % [place] % (Auto) (5.3-12.2) % Eos % (Auto) (0.8-7.0) Baso % (Auto) (0.1-1.2) % Neut # (Auto) (1.78-5.38) K/mm3 Lymph # (Auto) (1.32-3.57) K/mm3 [place] # (Auto) (0.30-0.82) K/mm3 Eos # (Auto) (0.04-0.54) K/mm3 Baso # (Auto) (0.01-0.08) K/mm3 Neutrophils % (Manual) (40-60) % Band Neutrophils % (0-10) % Lymphocytes % (Manual) (20-40) % Atypical Lymphs % % Monocytes % (Manual) (2-10) % Eosinophils % (Manual) (0.8-7.0) % Basophils % (Manual) (0.2-1.2) Manual Slide Review Platelet Estimate Hypochromasia Anisocytosis RBC Morph Comment ESR (0-15) mm/hr PT (9.7-12.0) SECONDS INR APTT (21.7-31.4) SECONDS Sodium (136-145) mEq/L Potassium (3.5-5.1) mEq/L Chloride (98-107) mEq/L Carbon Dioxide (21-32) mEq/L Anion Gap (5-15) BUN (7-18) mg/dL Creatinine (0.7-1.3) mg/dL Est Cr Clr Drug Dosing mL/min Estimated GFR (MDRD) (>60) mL/min BUN/Creatinine Ratio (14-18) Glucose (70-99) mg/dL POC Glucose 182 H (70-99) mg/dL Hemoglobin A1c ( - 5.6) % Lactic Acid (0.4-2.0) mmol/L Calcium (8.5-10.1) mg/dL Magnesium (1.8-2.4) mg/dL Total Bilirubin (0.2-1.0) mg/dL AST (15-37) U/L ALT (16-63) U/L Alkaline Phosphatase (46-116) U/L Troponin I (0.00-0.056) ng/mL C-Reactive Protein (<1.0) mg/dL NT-Pro-B Natriuret Pep (0-125) pg/mL Total Protein (6.4-8.2) g/dl Albumin (3.4-5.0) g/dl Globulin gm/dL Albumin/Globulin Ratio (1-2) Lipase (73-393) U/L Urine Color Yellow (Yellow) Urine Appearance Clear (Clear) Urine pH 5.5 (5.0-8.0) Ur Specific [place] > or = 1.030 (1.005-1.030) Urine Protein Negative (Negative) Urine Glucose (UA) Negative (Negative) Urine Ketones Negative (Negative) Urine Occult Blood Negative (Negative) Urine Nitrite Negative (Negative) Urine Bilirubin Negative (Negative) Urine Urobilinogen 1.0 (0.2-1.0) Ur Leukocyte Esterase Negative (Negative) Urine RBC 0-5 (0-5) /hpf Urine WBC 0-5 (0-5) /hpf Ur Squamous Epith Cells 0-5 (0-5) /hpf Urine Bacteria Few (FEW) /hpf Urine Mucus Rare (FEW) /hpf Ethyl Alcohol (0.00) gm% SARS-CoV-2 RNA (ANSELMO) Negative (NEGATIVE) MRSA (PCR) 12/23/20 12/23/20 12/23/20 Range/Units 11:21 11:21 11:21 WBC 8.71 (4.23-9.07) K/mm3 RBC 5.78 (4.63-6.08) M/mm3 Hgb 13.9 (13.7-17.5) gm/dl Hct 50.3 (40.1-51.0) % MCV 87.0 (79.0-92.2) fl MCH 24.0 L (25.7-32.2) pg MCHC 27.6 L (32.2-35.5) g/dl RDW Std Deviation 54.2 H (35.1-43.9) fL Plt Count 191 (163-337) K/mm3 MPV 10.9 (9.4-12.3) fl Neut % (Auto) (34.0-67.9) % Lymph % (Auto) (21.8-53.1) % [place] % (Auto) (5.3-12.2) % Eos % (Auto) (0.8-7.0) Baso % (Auto) (0.1-1.2) % Neut # (Auto) (1.78-5.38) K/mm3 Lymph # (Auto) (1.32-3.57) K/mm3 [place] # (Auto) (0.30-0.82) K/mm3 Eos # (Auto) (0.04-0.54) K/mm3 Baso # (Auto) (0.01-0.08) K/mm3 Neutrophils % (Manual) 77 H (40-60) % Band Neutrophils % 0 (0-10) % Lymphocytes % (Manual) 11 L (20-40) % Atypical Lymphs % 0 % Monocytes % (Manual) 9 (2-10) % Eosinophils % (Manual) 3 (0.8-7.0) % Basophils % (Manual) 0 L (0.2-1.2) Manual Slide Review Platelet Estimate Adequate Hypochromasia 2+ moderate Anisocytosis 2+ moderate RBC Morph Comment Abmormal ESR (0-15) mm/hr PT 13.5 H (9.7-12.0) SECONDS INR 1.27 APTT 31.4 (21.7-31.4) SECONDS Sodium 144 (136-145) mEq/L Potassium 4.0 (3.5-5.1) mEq/L Chloride 102 (98-107) mEq/L Carbon Dioxide 40 H (21-32) mEq/L Anion Gap 6.0 (5-15) BUN 21 H (7-18) mg/dL Creatinine 1.0 (0.7-1.3) mg/dL Est Cr Clr Drug Dosing 80.83 mL/min Estimated GFR (MDRD) > 60 (>60) mL/min BUN/Creatinine Ratio 21.0 H (14-18) Glucose 222 H (70-99) mg/dL POC Glucose (70-99) mg/dL Hemoglobin A1c ( - 5.6) % Lactic Acid (0.4-2.0) mmol/L Calcium 8.6 (8.5-10.1) mg/dL Magnesium 1.9 (1.8-2.4) mg/dL Total Bilirubin 0.6 (0.2-1.0) mg/dL AST 15 (15-37) U/L ALT 19 (16-63) U/L Alkaline Phosphatase 117 H (46-116) U/L Troponin I < 0.017 (0.00-0.056) ng/mL C-Reactive Protein 6.3 H* (<1.0) mg/dL NT-Pro-B Natriuret Pep (0-125) pg/mL Total Protein 6.5 (6.4-8.2) g/dl Albumin 3.3 L (3.4-5.0) g/dl Globulin 3.2 gm/dL Albumin/Globulin Ratio 1.0 (1-2) Lipase 43 L (73-393) U/L Urine Color (Yellow) Urine Appearance (Clear) Urine pH (5.0-8.0) Ur Specific [place] (1.005-1.030) Urine Protein (Negative) Urine Glucose (UA) (Negative) Urine Ketones (Negative) Urine Occult Blood (Negative) Urine Nitrite (Negative) Urine Bilirubin (Negative) Urine Urobilinogen (0.2-1.0) Ur Leukocyte Esterase (Negative) Urine RBC (0-5) /hpf Urine WBC (0-5) /hpf Ur Squamous Epith Cells (0-5) /hpf Urine Bacteria (FEW) /hpf Urine Mucus (FEW) /hpf Ethyl Alcohol 0.00 (0.00) gm% SARS-CoV-2 RNA (ANSELMO) (NEGATIVE) MRSA (PCR) 12/23/20 12/23/20 12/23/20 Range/Units 11:21 11:21 11:21 WBC (4.23-9.07) K/mm3 RBC (4.63-6.08) M/mm3 Hgb (13.7-17.5) gm/dl Hct (40.1-51.0) % MCV (79.0-92.2) fl MCH (25.7-32.2) pg MCHC (32.2-35.5) g/dl RDW Std Deviation (35.1-43.9) fL Plt Count (163-337) K/mm3 MPV (9.4-12.3) fl Neut % (Auto) (34.0-67.9) % Lymph % (Auto) (21.8-53.1) % [place] % (Auto) (5.3-12.2) % Eos % (Auto) (0.8-7.0) Baso % (Auto) (0.1-1.2) % Neut # (Auto) (1.78-5.38) K/mm3 Lymph # (Auto) (1.32-3.57) K/mm3 [place] # (Auto) (0.30-0.82) K/mm3 Eos # (Auto) (0.04-0.54) K/mm3 Baso # (Auto) (0.01-0.08) K/mm3 Neutrophils % (Manual) (40-60) % Band Neutrophils % (0-10) % Lymphocytes % (Manual) (20-40) % Atypical Lymphs % % Monocytes % (Manual) (2-10) % Eosinophils % (Manual) (0.8-7.0) % Basophils % (Manual) (0.2-1.2) Manual Slide Review Platelet Estimate Hypochromasia Anisocytosis RBC Morph Comment ESR 2 (0-15) mm/hr PT (9.7-12.0) SECONDS INR APTT (21.7-31.4) SECONDS Sodium (136-145) mEq/L Potassium (3.5-5.1) mEq/L Chloride (98-107) mEq/L Carbon Dioxide (21-32) mEq/L Anion Gap (5-15) BUN (7-18) mg/dL Creatinine (0.7-1.3) mg/dL Est Cr Clr Drug Dosing mL/min Estimated GFR (MDRD) (>60) mL/min BUN/Creatinine Ratio (14-18) Glucose (70-99) mg/dL POC Glucose (70-99) mg/dL Hemoglobin A1c 8.8 H ( - 5.6) % Lactic Acid (0.4-2.0) mmol/L Calcium (8.5-10.1) mg/dL Magnesium (1.8-2.4) mg/dL Total Bilirubin (0.2-1.0) mg/dL AST (15-37) U/L ALT (16-63) U/L Alkaline Phosphatase (46-116) U/L Troponin I (0.00-0.056) ng/mL C-Reactive Protein (<1.0) mg/dL NT-Pro-B Natriuret Pep 908 H (0-125) pg/mL Total Protein (6.4-8.2) g/dl Albumin (3.4-5.0) g/dl Globulin gm/dL Albumin/Globulin Ratio (1-2) Lipase (73-393) U/L Urine Color (Yellow) Urine Appearance (Clear) Urine pH (5.0-8.0) Ur Specific [place] (1.005-1.030) Urine Protein (Negative) Urine Glucose (UA) (Negative) Urine Ketones (Negative) Urine Occult Blood (Negative) Urine Nitrite (Negative) Urine Bilirubin (Negative) Urine Urobilinogen (0.2-1.0) Ur Leukocyte Esterase (Negative) Urine RBC (0-5) /hpf Urine WBC (0-5) /hpf Ur Squamous Epith Cells (0-5) /hpf Urine Bacteria (FEW) /hpf Urine Mucus (FEW) /hpf Ethyl Alcohol (0.00) gm% SARS-CoV-2 RNA (ANSELMO) (NEGATIVE) MRSA (PCR) 12/23/20 12/23/20 12/23/20 Range/Units 15:58 17:30 17:32 WBC (4.23-9.07) K/mm3 RBC (4.63-6.08) M/mm3 Hgb (13.7-17.5) gm/dl Hct (40.1-51.0) % MCV (79.0-92.2) fl MCH (25.7-32.2) pg MCHC (32.2-35.5) g/dl RDW Std Deviation (35.1-43.9) fL Plt Count (163-337) K/mm3 MPV (9.4-12.3) fl Neut % (Auto) (34.0-67.9) % Lymph % (Auto) (21.8-53.1) % [place] % (Auto) (5.3-12.2) % Eos % (Auto) (0.8-7.0) Baso % (Auto) (0.1-1.2) % Neut # (Auto) (1.78-5.38) K/mm3 Lymph # (Auto) (1.32-3.57) K/mm3 [place] # (Auto) (0.30-0.82) K/mm3 Eos # (Auto) (0.04-0.54) K/mm3 Baso # (Auto) (0.01-0.08) K/mm3 Neutrophils % (Manual) (40-60) % Band Neutrophils % (0-10) % Lymphocytes % (Manual) (20-40) % Atypical Lymphs % % Monocytes % (Manual) (2-10) % Eosinophils % (Manual) (0.8-7.0) % Basophils % (Manual) (0.2-1.2) Manual Slide Review Platelet Estimate Hypochromasia Anisocytosis RBC Morph Comment ESR (0-15) mm/hr PT (9.7-12.0) SECONDS INR APTT (21.7-31.4) SECONDS Sodium (136-145) mEq/L Potassium (3.5-5.1) mEq/L Chloride (98-107) mEq/L Carbon Dioxide (21-32) mEq/L Anion Gap (5-15) BUN (7-18) mg/dL Creatinine (0.7-1.3) mg/dL Est Cr Clr Drug Dosing mL/min Estimated GFR (MDRD) (>60) mL/min BUN/Creatinine Ratio (14-18) Glucose (70-99) mg/dL POC Glucose 165 H (70-99) mg/dL Hemoglobin A1c ( - 5.6) % Lactic Acid 1.3 (0.4-2.0) mmol/L Calcium (8.5-10.1) mg/dL Magnesium (1.8-2.4) mg/dL Total Bilirubin (0.2-1.0) mg/dL AST (15-37) U/L ALT (16-63) U/L Alkaline Phosphatase (46-116) U/L Troponin I (0.00-0.056) ng/mL C-Reactive Protein (<1.0) mg/dL NT-Pro-B Natriuret Pep (0-125) pg/mL Total Protein (6.4-8.2) g/dl Albumin (3.4-5.0) g/dl Globulin gm/dL Albumin/Globulin Ratio (1-2) Lipase (73-393) U/L Urine Color (Yellow) Urine Appearance (Clear) Urine pH (5.0-8.0) Ur Specific [place] (1.005-1.030) Urine Protein (Negative) Urine Glucose (UA) (Negative) Urine Ketones (Negative) Urine Occult Blood (Negative) Urine Nitrite (Negative) Urine Bilirubin (Negative) Urine Urobilinogen (0.2-1.0) Ur Leukocyte Esterase (Negative) Urine RBC (0-5) /hpf Urine WBC (0-5) /hpf Ur Squamous Epith Cells (0-5) /hpf Urine Bacteria (FEW) /hpf Urine Mucus (FEW) /hpf Ethyl Alcohol (0.00) gm% SARS-CoV-2 RNA (ANSELMO) (NEGATIVE) MRSA (PCR) Negative 12/23/20 12/24/20 12/24/20 Range/Units 21:38 04:59 04:59 WBC 10.03 H (4.23-9.07) K/mm3 RBC 5.69 (4.63-6.08) M/mm3 Hgb 13.8 (13.7-17.5) gm/dl Hct 48.9 (40.1-51.0) % MCV 85.9 (79.0-92.2) fl MCH 24.3 L (25.7-32.2) pg MCHC 28.2 L (32.2-35.5) g/dl RDW Std Deviation 53.5 H (35.1-43.9) fL Plt Count 182 (163-337) K/mm3 MPV 12.0 (9.4-12.3) fl Neut % (Auto) 76.8 H (34.0-67.9) % Lymph % (Auto) 10.6 L (21.8-53.1) % [place] % (Auto) 8.1 (5.3-12.2) % Eos % (Auto) 3.7 (0.8-7.0) Baso % (Auto) 0.6 (0.1-1.2) % Neut # (Auto) 7.71 H (1.78-5.38) K/mm3 Lymph # (Auto) 1.06 L (1.32-3.57) K/mm3 [place] # (Auto) 0.81 (0.30-0.82) K/mm3 Eos # (Auto) 0.37 (0.04-0.54) K/mm3 Baso # (Auto) 0.06 (0.01-0.08) K/mm3 Neutrophils % (Manual) (40-60) % Band Neutrophils % (0-10) % Lymphocytes % (Manual) (20-40) % Atypical Lymphs % % Monocytes % (Manual) (2-10) % Eosinophils % (Manual) (0.8-7.0) % Basophils % (Manual) (0.2-1.2) Manual Slide Review Abnormal smear Platelet Estimate Hypochromasia Anisocytosis RBC Morph Comment ESR (0-15) mm/hr PT (9.7-12.0) SECONDS INR APTT (21.7-31.4) SECONDS Sodium (136-145) mEq/L Potassium (3.5-5.1) mEq/L Chloride (98-107) mEq/L Carbon Dioxide (21-32) mEq/L Anion Gap (5-15) BUN (7-18) mg/dL Creatinine (0.7-1.3) mg/dL Est Cr Clr Drug Dosing mL/min Estimated GFR (MDRD) (>60) mL/min BUN/Creatinine Ratio (14-18) Glucose (70-99) mg/dL POC Glucose 186 H (70-99) mg/dL Hemoglobin A1c ( - 5.6) % Lactic Acid (0.4-2.0) mmol/L Calcium (8.5-10.1) mg/dL Magnesium 1.9 (1.8-2.4) mg/dL Total Bilirubin (0.2-1.0) mg/dL AST (15-37) U/L ALT (16-63) U/L Alkaline Phosphatase (46-116) U/L Troponin I (0.00-0.056) ng/mL C-Reactive Protein 4.5 H* (<1.0) mg/dL NT-Pro-B Natriuret Pep (0-125) pg/mL Total Protein (6.4-8.2) g/dl Albumin (3.4-5.0) g/dl Globulin gm/dL Albumin/Globulin Ratio (1-2) Lipase (73-393) U/L Urine Color (Yellow) Urine Appearance (Clear) Urine pH (5.0-8.0) Ur Specific [place] (1.005-1.030) Urine Protein (Negative) Urine Glucose (UA) (Negative) Urine Ketones (Negative) Urine Occult Blood (Negative) Urine Nitrite (Negative) Urine Bilirubin (Negative) Urine Urobilinogen (0.2-1.0) Ur Leukocyte Esterase (Negative) Urine RBC (0-5) /hpf Urine WBC (0-5) /hpf Ur Squamous Epith Cells (0-5) /hpf Urine Bacteria (FEW) /hpf Urine Mucus (FEW) /hpf Ethyl Alcohol (0.00) gm% SARS-CoV-2 RNA (ANSELMO) (NEGATIVE) MRSA (PCR) 12/24/20 Range/Units 06:48 WBC (4.23-9.07) K/mm3 RBC (4.63-6.08) M/mm3 Hgb (13.7-17.5) gm/dl Hct (40.1-51.0) % MCV (79.0-92.2) fl MCH (25.7-32.2) pg MCHC (32.2-35.5) g/dl RDW Std Deviation (35.1-43.9) fL Plt Count (163-337) K/mm3 MPV (9.4-12.3) fl Neut % (Auto) (34.0-67.9) % Lymph % (Auto) (21.8-53.1) % [place] % (Auto) (5.3-12.2) % Eos % (Auto) (0.8-7.0) Baso % (Auto) (0.1-1.2) % Neut # (Auto) (1.78-5.38) K/mm3 Lymph # (Auto) (1.32-3.57) K/mm3 [place] # (Auto) (0.30-0.82) K/mm3 Eos # (Auto) (0.04-0.54) K/mm3 Baso # (Auto) (0.01-0.08) K/mm3 Neutrophils % (Manual) (40-60) % Band Neutrophils % (0-10) % Lymphocytes % (Manual) (20-40) % Atypical Lymphs % % Monocytes % (Manual) (2-10) % Eosinophils % (Manual) (0.8-7.0) % Basophils % (Manual) (0.2-1.2) Manual Slide Review Platelet Estimate Hypochromasia Anisocytosis RBC Morph Comment ESR (0-15) mm/hr PT (9.7-12.0) SECONDS INR APTT (21.7-31.4) SECONDS Sodium (136-145) mEq/L Potassium (3.5-5.1) mEq/L Chloride (98-107) mEq/L Carbon Dioxide (21-32) mEq/L Anion Gap (5-15) BUN (7-18) mg/dL Creatinine (0.7-1.3) mg/dL Est Cr Clr Drug Dosing mL/min Estimated GFR (MDRD) (>60) mL/min BUN/Creatinine Ratio (14-18) Glucose (70-99) mg/dL POC Glucose 157 H (70-99) mg/dL Hemoglobin A1c ( - 5.6) % Lactic Acid (0.4-2.0) mmol/L Calcium (8.5-10.1) mg/dL Magnesium (1.8-2.4) mg/dL Total Bilirubin (0.2-1.0) mg/dL AST (15-37) U/L ALT (16-63) U/L Alkaline Phosphatase (46-116) U/L Troponin I (0.00-0.056) ng/mL C-Reactive Protein (<1.0) mg/dL NT-Pro-B Natriuret Pep (0-125) pg/mL Total Protein (6.4-8.2) g/dl Albumin (3.4-5.0) g/dl Globulin gm/dL Albumin/Globulin Ratio (1-2) Lipase (73-393) U/L Urine Color (Yellow) Urine Appearance (Clear) Urine pH (5.0-8.0) Ur Specific [place] (1.005-1.030) Urine Protein (Negative) Urine Glucose (UA) (Negative) Urine Ketones (Negative) Urine Occult Blood (Negative) Urine Nitrite (Negative) Urine Bilirubin (Negative) Urine Urobilinogen (0.2-1.0) Ur Leukocyte Esterase (Negative) Urine RBC (0-5) /hpf Urine WBC (0-5) /hpf Ur Squamous Epith Cells (0-5) /hpf Urine Bacteria (FEW) /hpf Urine Mucus (FEW) /hpf Ethyl Alcohol (0.00) gm% SARS-CoV-2 RNA (ANSELMO) (NEGATIVE) MRSA (PCR) Med Orders - Current: Current Medications Acetaminophen (Acetaminophen 325 Mg Tab) 650 mg PO BID PRN PRN Reason: Pain Albuterol/Ipratropium (Albuterol/Ipratropium 3.0-0.5 Mg/3 Ml Neb Soln) 3 ml INH Q6HRRT [facility] Last Admin: 12/24/20 03:12 Dose: 3 ml Documented by: Aspirin (Aspirin 81 Mg Tab.Ec) 81 mg PO DAILY [facility] Atorvastatin Calcium (Atorvastatin 20 Mg Tab) 20 mg PO DAILY [facility] Bisacodyl (Bisacodyl 10 Mg Supp) 10 mg RECTAL DAILY PRN PRN Reason: Constipation Furosemide (Furosemide 40 Mg/4 Ml Vial) 40 mg IVPUSH BIDDIURETIC [facility] Last Admin: 12/24/20 06:46 Dose: 40 mg Documented by: Gabapentin (Gabapentin 300 Mg Cap) 300 mg PO TID [facility] Last Admin: 12/23/20 21:55 Dose: 300 mg Documented by: Ceftriaxone Sodium 2 gm/ (Sodium Chloride) 100 mls @ 200 mls/hr IV Q24H [facility] Last Admin: 12/23/20 18:24 Dose: 200 mls/hr Documented by: Insulin Human Lispro (Insulin Lispro 100 Unit/Ml 10 Ml Vial) 0 unit SUBCUT QIDACANDBED [facility]; Protocol Last Admin: 12/23/20 21:56 Dose: 2 units Documented by: Lactulose (Lactulose Soln 10 Gm/15 Ml 30 Ml Ud Cup) 40 gm PO QPM [facility] Last Admin: 12/23/20 18:23 Dose: 40 gm Documented by: Melatonin (Melatonin 3 Mg Tab) 3 mg PO BEDTIME [facility] Last Admin: 12/23/20 21:54 Dose: 3 mg Documented by: Metoprolol Succinate (Metoprolol Succinate 50 Mg Tab.Er) 50 mg PO QPM [facility] Last Admin: 12/23/20 18:22 Dose: 50 mg Documented by: Olanzapine (Olanzapine 5 Mg Tab) 20 mg PO QPM [facility] Last Admin: 12/23/20 18:23 Dose: 20 mg Documented by: Rivaroxaban (Rivaroxaban 10 Mg Tab) 20 mg PO QPM [facility] Last Admin: 12/23/20 18:23 Dose: 20 mg Documented by: Senna (Sennosides 8.6 Mg Tab) 17.2 mg PO BEDTIME PRN PRN Reason: Constipation Last Admin: 12/23/20 18:22 Dose: 17.2 mg Documented by: Sertraline HCl (Sertraline 25 Mg Tab) 75 mg PO BEDTIME [facility] Last Admin: 12/23/20 21:56 Dose: 75 mg Documented by: Tamsulosin HCl (Tamsulosin 0.4 Mg Cap.Er) 0.8 mg PO BEDTIME [facility] Last Admin: 12/23/20 21:54 Dose: 0.8 mg Documented by: Tramadol HCl (Tramadol 50 Mg Tab) 50 mg PO TID PRN PRN Reason: Pain Last Admin: 12/23/20 21:57 Dose: 50 mg Documented by: Discontinued Medications Furosemide (Furosemide 40 Mg Tab) 40 mg PO DAILY [facility] Furosemide (Furosemide 20 Mg Tab) 20 mg PO DAILY@1200 [facility] Furosemide (Furosemide 40 Mg/4 Ml Vial) 40 mg IVPUSH NOW ONE Stop: 12/23/20 16:16 Last Admin: 12/23/20 18:24 Dose: 40 mg Documented by: Clindamycin Phosphate 900 mg/ (Premix) 50 mls @ 100 mls/hr IV ONETIME ONE Stop: 12/23/20 11:17 Last Admin: 12/23/20 11:32 Dose: 100 mls/hr Documented by: Non-Formulary Medication (Acetaminophen) 500 mg PO QID [facility] Sertraline HCl (Sertraline 50 Mg Tab) 50 mg PO BEDTIME [facility] - Exam Quality Assessment: Supplemental Oxygen (1L), DVT Prophylaxis. No: Urine Catheter General: Alert, Oriented, Cooperative, No Acute Distress HEENT: Pupils Equal, Pupils Reactive, Mucous Membr. Moist/[place] Neck: Supple, Trachea Midline Lungs: Normal Respiratory Effort, Decreased Breath Sounds. No: Rhonchi, Wheezing Cardiovascular: Regular Rate, Regular Rhythm GI/Abdominal Exam: Normal Bowel Sounds, Soft, Non-Tender, No Distention (Male) Exam: Deferred Back Exam: Normal Inspection, Decreased Range of Motion Extremities: Normal Inspection, Normal Range of Motion, Non-Tender, Normal Capillary Refill, Pedal Edema (3-4+), Other (right below the knee amputation) Skin: Warm, Dry, Intact Wound/Incisions: Healing Well, Erythema Improving Neurological: No New Focal Deficit Psy/Mental Status: Alert, Normal Affect, Normal Mood - Patient Data Lab Results Last 24 hrs: Laboratory Results - last 24 hr 12/23/20 12/23/20 12/23/20 Range/Units 10:56 11:00 11:00 WBC (4.23-9.07) K/mm3 RBC (4.63-6.08) M/mm3 Hgb (13.7-17.5) gm/dl Hct (40.1-51.0) % MCV (79.0-92.2) fl MCH (25.7-32.2) pg MCHC (32.2-35.5) g/dl RDW Std Deviation (35.1-43.9) fL Plt Count (163-337) K/mm3 MPV (9.4-12.3) fl Neut % (Auto) (34.0-67.9) % Lymph % (Auto) (21.8-53.1) % [place] % (Auto) (5.3-12.2) % Eos % (Auto) (0.8-7.0) Baso % (Auto) (0.1-1.2) % Neut # (Auto) (1.78-5.38) K/mm3 Lymph # (Auto) (1.32-3.57) K/mm3 [place] # (Auto) (0.30-0.82) K/mm3 Eos # (Auto) (0.04-0.54) K/mm3 Baso # (Auto) (0.01-0.08) K/mm3 Neutrophils % (Manual) (40-60) % Band Neutrophils % (0-10) % Lymphocytes % (Manual) (20-40) % Atypical Lymphs % % Monocytes % (Manual) (2-10) % Eosinophils % (Manual) (0.8-7.0) % Basophils % (Manual) (0.2-1.2) Manual Slide Review Platelet Estimate Hypochromasia Anisocytosis RBC Morph Comment ESR (0-15) mm/hr PT (9.7-12.0) SECONDS INR APTT (21.7-31.4) SECONDS Sodium (136-145) mEq/L Potassium (3.5-5.1) mEq/L Chloride (98-107) mEq/L Carbon Dioxide (21-32) mEq/L Anion Gap (5-15) BUN (7-18) mg/dL Creatinine (0.7-1.3) mg/dL Est Cr Clr Drug Dosing mL/min Estimated GFR (MDRD) (>60) mL/min BUN/Creatinine Ratio (14-18) Glucose (70-99) mg/dL POC Glucose 182 H (70-99) mg/dL Hemoglobin A1c ( - 5.6) % Lactic Acid (0.4-2.0) mmol/L Calcium (8.5-10.1) mg/dL Magnesium (1.8-2.4) mg/dL Total Bilirubin (0.2-1.0) mg/dL AST (15-37) U/L ALT (16-63) U/L Alkaline Phosphatase (46-116) U/L Troponin I (0.00-0.056) ng/mL C-Reactive Protein (<1.0) mg/dL NT-Pro-B Natriuret Pep (0-125) pg/mL Total Protein (6.4-8.2) g/dl Albumin (3.4-5.0) g/dl Globulin gm/dL Albumin/Globulin Ratio (1-2) Lipase (73-393) U/L Urine Color Yellow (Yellow) Urine Appearance Clear (Clear) Urine pH 5.5 (5.0-8.0) Ur Specific [place] > or = 1.030 (1.005-1.030) Urine Protein Negative (Negative) Urine Glucose (UA) Negative (Negative) Urine Ketones Negative (Negative) Urine Occult Blood Negative (Negative) Urine Nitrite Negative (Negative) Urine Bilirubin Negative (Negative) Urine Urobilinogen 1.0 (0.2-1.0) Ur Leukocyte Esterase Negative (Negative) Urine RBC 0-5 (0-5) /hpf Urine WBC 0-5 (0-5) /hpf Ur Squamous Epith Cells 0-5 (0-5) /hpf Urine Bacteria Few (FEW) /hpf Urine Mucus Rare (FEW) /hpf Ethyl Alcohol (0.00) gm% SARS-CoV-2 RNA (ANSELMO) Negative (NEGATIVE) MRSA (PCR) 12/23/20 12/23/20 12/23/20 Range/Units 11:21 11:21 11:21 WBC 8.71 (4.23-9.07) K/mm3 RBC 5.78 (4.63-6.08) M/mm3 Hgb 13.9 (13.7-17.5) gm/dl Hct 50.3 (40.1-51.0) % MCV 87.0 (79.0-92.2) fl MCH 24.0 L (25.7-32.2) pg MCHC 27.6 L (32.2-35.5) g/dl RDW Std Deviation 54.2 H (35.1-43.9) fL Plt Count 191 (163-337) K/mm3 MPV 10.9 (9.4-12.3) fl Neut % (Auto) (34.0-67.9) % Lymph % (Auto) (21.8-53.1) % [place] % (Auto) (5.3-12.2) % Eos % (Auto) (0.8-7.0) Baso % (Auto) (0.1-1.2) % Neut # (Auto) (1.78-5.38) K/mm3 Lymph # (Auto) (1.32-3.57) K/mm3 [place] # (Auto) (0.30-0.82) K/mm3 Eos # (Auto) (0.04-0.54) K/mm3 Baso # (Auto) (0.01-0.08) K/mm3 Neutrophils % (Manual) 77 H (40-60) % Band Neutrophils % 0 (0-10) % Lymphocytes % (Manual) 11 L (20-40) % Atypical Lymphs % 0 % Monocytes % (Manual) 9 (2-10) % Eosinophils % (Manual) 3 (0.8-7.0) % Basophils % (Manual) 0 L (0.2-1.2) Manual Slide Review Platelet Estimate Adequate Hypochromasia 2+ moderate Anisocytosis 2+ moderate RBC Morph Comment Abmormal ESR (0-15) mm/hr PT 13.5 H (9.7-12.0) SECONDS INR 1.27 APTT 31.4 (21.7-31.4) SECONDS Sodium 144 (136-145) mEq/L Potassium 4.0 (3.5-5.1) mEq/L Chloride 102 (98-107) mEq/L Carbon Dioxide 40 H (21-32) mEq/L Anion Gap 6.0 (5-15) BUN 21 H (7-18) mg/dL Creatinine 1.0 (0.7-1.3) mg/dL Est Cr Clr Drug Dosing 80.83 mL/min Estimated GFR (MDRD) > 60 (>60) mL/min BUN/Creatinine Ratio 21.0 H (14-18) Glucose 222 H (70-99) mg/dL POC Glucose (70-99) mg/dL Hemoglobin A1c ( - 5.6) % Lactic Acid (0.4-2.0) mmol/L Calcium 8.6 (8.5-10.1) mg/dL Magnesium 1.9 (1.8-2.4) mg/dL Total Bilirubin 0.6 (0.2-1.0) mg/dL AST 15 (15-37) U/L ALT 19 (16-63) U/L Alkaline Phosphatase 117 H (46-116) U/L Troponin I < 0.017 (0.00-0.056) ng/mL C-Reactive Protein 6.3 H* (<1.0) mg/dL NT-Pro-B Natriuret Pep (0-125) pg/mL Total Protein 6.5 (6.4-8.2) g/dl Albumin 3.3 L (3.4-5.0) g/dl Globulin 3.2 gm/dL Albumin/Globulin Ratio 1.0 (1-2) Lipase 43 L (73-393) U/L Urine Color (Yellow) Urine Appearance (Clear) Urine pH (5.0-8.0) Ur Specific [place] (1.005-1.030) Urine Protein (Negative) Urine Glucose (UA) (Negative) Urine Ketones (Negative) Urine Occult Blood (Negative) Urine Nitrite (Negative) Urine Bilirubin (Negative) Urine Urobilinogen (0.2-1.0) Ur Leukocyte Esterase (Negative) Urine RBC (0-5) /hpf Urine WBC (0-5) /hpf Ur Squamous Epith Cells (0-5) /hpf Urine Bacteria (FEW) /hpf Urine Mucus (FEW) /hpf Ethyl Alcohol 0.00 (0.00) gm% SARS-CoV-2 RNA (ANSELMO) (NEGATIVE) MRSA (PCR) 12/23/20 12/23/20 12/23/20 Range/Units 11:21 11:21 11:21 WBC (4.23-9.07) K/mm3 RBC (4.63-6.08) M/mm3 Hgb (13.7-17.5) gm/dl Hct (40.1-51.0) % MCV (79.0-92.2) fl MCH (25.7-32.2) pg MCHC (32.2-35.5) g/dl RDW Std Deviation (35.1-43.9) fL Plt Count (163-337) K/mm3 MPV (9.4-12.3) fl Neut % (Auto) (34.0-67.9) % Lymph % (Auto) (21.8-53.1) % [place] % (Auto) (5.3-12.2) % Eos % (Auto) (0.8-7.0) Baso % (Auto) (0.1-1.2) % Neut # (Auto) (1.78-5.38) K/mm3 Lymph # (Auto) (1.32-3.57) K/mm3 [place] # (Auto) (0.30-0.82) K/mm3 Eos # (Auto) (0.04-0.54) K/mm3 Baso # (Auto) (0.01-0.08) K/mm3 Neutrophils % (Manual) (40-60) % Band Neutrophils % (0-10) % Lymphocytes % (Manual) (20-40) % Atypical Lymphs % % Monocytes % (Manual) (2-10) % Eosinophils % (Manual) (0.8-7.0) % Basophils % (Manual) (0.2-1.2) Manual Slide Review Platelet Estimate Hypochromasia Anisocytosis RBC Morph Comment ESR 2 (0-15) mm/hr PT (9.7-12.0) SECONDS INR APTT (21.7-31.4) SECONDS Sodium (136-145) mEq/L Potassium (3.5-5.1) mEq/L Chloride (98-107) mEq/L Carbon Dioxide (21-32) mEq/L Anion Gap (5-15) BUN (7-18) mg/dL Creatinine (0.7-1.3) mg/dL Est Cr Clr Drug Dosing mL/min Estimated GFR (MDRD) (>60) mL/min BUN/Creatinine Ratio (14-18) Glucose (70-99) mg/dL POC Glucose (70-99) mg/dL Hemoglobin A1c 8.8 H ( - 5.6) % Lactic Acid (0.4-2.0) mmol/L Calcium (8.5-10.1) mg/dL Magnesium (1.8-2.4) mg/dL Total Bilirubin (0.2-1.0) mg/dL AST (15-37) U/L ALT (16-63) U/L Alkaline Phosphatase (46-116) U/L Troponin I (0.00-0.056) ng/mL C-Reactive Protein (<1.0) mg/dL NT-Pro-B Natriuret Pep 908 H (0-125) pg/mL Total Protein (6.4-8.2) g/dl Albumin (3.4-5.0) g/dl Globulin gm/dL Albumin/Globulin Ratio (1-2) Lipase (73-393) U/L Urine Color (Yellow) Urine Appearance (Clear) Urine pH (5.0-8.0) Ur Specific [place] (1.005-1.030) Urine Protein (Negative) Urine Glucose (UA) (Negative) Urine Ketones (Negative) Urine Occult Blood (Negative) Urine Nitrite (Negative) Urine Bilirubin (Negative) Urine Urobilinogen (0.2-1.0) Ur Leukocyte Esterase (Negative) Urine RBC (0-5) /hpf Urine WBC (0-5) /hpf Ur Squamous Epith Cells (0-5) /hpf Urine Bacteria (FEW) /hpf Urine Mucus (FEW) /hpf Ethyl Alcohol (0.00) gm% SARS-CoV-2 RNA (ANSELMO) (NEGATIVE) MRSA (PCR) 12/23/20 12/23/20 12/23/20 Range/Units 15:58 17:30 17:32 WBC (4.23-9.07) K/mm3 RBC (4.63-6.08) M/mm3 Hgb (13.7-17.5) gm/dl Hct (40.1-51.0) % MCV (79.0-92.2) fl MCH (25.7-32.2) pg MCHC (32.2-35.5) g/dl RDW Std Deviation (35.1-43.9) fL Plt Count (163-337) K/mm3 MPV (9.4-12.3) fl Neut % (Auto) (34.0-67.9) % Lymph % (Auto) (21.8-53.1) % [place] % (Auto) (5.3-12.2) % Eos % (Auto) (0.8-7.0) Baso % (Auto) (0.1-1.2) % Neut # (Auto) (1.78-5.38) K/mm3 Lymph # (Auto) (1.32-3.57) K/mm3 [place] # (Auto) (0.30-0.82) K/mm3 Eos # (Auto) (0.04-0.54) K/mm3 Baso # (Auto) (0.01-0.08) K/mm3 Neutrophils % (Manual) (40-60) % Band Neutrophils % (0-10) % Lymphocytes % (Manual) (20-40) % Atypical Lymphs % % Monocytes % (Manual) (2-10) % Eosinophils % (Manual) (0.8-7.0) % Basophils % (Manual) (0.2-1.2) Manual Slide Review Platelet Estimate Hypochromasia Anisocytosis RBC Morph Comment ESR (0-15) mm/hr PT (9.7-12.0) SECONDS INR APTT (21.7-31.4) SECONDS Sodium (136-145) mEq/L Potassium (3.5-5.1) mEq/L Chloride (98-107) mEq/L Carbon Dioxide (21-32) mEq/L Anion Gap (5-15) BUN (7-18) mg/dL Creatinine (0.7-1.3) mg/dL Est Cr Clr Drug Dosing mL/min Estimated GFR (MDRD) (>60) mL/min BUN/Creatinine Ratio (14-18) Glucose (70-99) mg/dL POC Glucose 165 H (70-99) mg/dL Hemoglobin A1c ( - 5.6) % Lactic Acid 1.3 (0.4-2.0) mmol/L Calcium (8.5-10.1) mg/dL Magnesium (1.8-2.4) mg/dL Total Bilirubin (0.2-1.0) mg/dL AST (15-37) U/L ALT (16-63) U/L Alkaline Phosphatase (46-116) U/L Troponin I (0.00-0.056) ng/mL C-Reactive Protein (<1.0) mg/dL NT-Pro-B Natriuret Pep (0-125) pg/mL Total Protein (6.4-8.2) g/dl Albumin (3.4-5.0) g/dl Globulin gm/dL Albumin/Globulin Ratio (1-2) Lipase (73-393) U/L Urine Color (Yellow) Urine Appearance (Clear) Urine pH (5.0-8.0) Ur Specific [place] (1.005-1.030) Urine Protein (Negative) Urine Glucose (UA) (Negative) Urine Ketones (Negative) Urine Occult Blood (Negative) Urine Nitrite (Negative) Urine Bilirubin (Negative) Urine Urobilinogen (0.2-1.0) Ur Leukocyte Esterase (Negative) Urine RBC (0-5) /hpf Urine WBC (0-5) /hpf Ur Squamous Epith Cells (0-5) /hpf Urine Bacteria (FEW) /hpf Urine Mucus (FEW) /hpf Ethyl Alcohol (0.00) gm% SARS-CoV-2 RNA (ANSELMO) (NEGATIVE) MRSA (PCR) Negative 12/23/20 12/24/20 12/24/20 Range/Units 21:38 04:59 04:59 WBC 10.03 H (4.23-9.07) K/mm3 RBC 5.69 (4.63-6.08) M/mm3 Hgb 13.8 (13.7-17.5) gm/dl Hct 48.9 (40.1-51.0) % MCV 85.9 (79.0-92.2) fl MCH 24.3 L (25.7-32.2) pg MCHC 28.2 L (32.2-35.5) g/dl RDW Std Deviation 53.5 H (35.1-43.9) fL Plt Count 182 (163-337) K/mm3 MPV 12.0 (9.4-12.3) fl Neut % (Auto) 76.8 H (34.0-67.9) % Lymph % (Auto) 10.6 L (21.8-53.1) % [place] % (Auto) 8.1 (5.3-12.2) % Eos % (Auto) 3.7 (0.8-7.0) Baso % (Auto) 0.6 (0.1-1.2) % Neut # (Auto) 7.71 H (1.78-5.38) K/mm3 Lymph # (Auto) 1.06 L (1.32-3.57) K/mm3 [place] # (Auto) 0.81 (0.30-0.82) K/mm3 Eos # (Auto) 0.37 (0.04-0.54) K/mm3 Baso # (Auto) 0.06 (0.01-0.08) K/mm3 Neutrophils % (Manual) (40-60) % Band Neutrophils % (0-10) % Lymphocytes % (Manual) (20-40) % Atypical Lymphs % % Monocytes % (Manual) (2-10) % Eosinophils % (Manual) (0.8-7.0) % Basophils % (Manual) (0.2-1.2) Manual Slide Review Abnormal smear Platelet Estimate Hypochromasia Anisocytosis RBC Morph Comment ESR (0-15) mm/hr PT (9.7-12.0) SECONDS INR APTT (21.7-31.4) SECONDS Sodium (136-145) mEq/L Potassium (3.5-5.1) mEq/L Chloride (98-107) mEq/L Carbon Dioxide (21-32) mEq/L Anion Gap (5-15) BUN (7-18) mg/dL Creatinine (0.7-1.3) mg/dL Est Cr Clr Drug Dosing mL/min Estimated GFR (MDRD) (>60) mL/min BUN/Creatinine Ratio (14-18) Glucose (70-99) mg/dL POC Glucose 186 H (70-99) mg/dL Hemoglobin A1c ( - 5.6) % Lactic Acid (0.4-2.0) mmol/L Calcium (8.5-10.1) mg/dL Magnesium 1.9 (1.8-2.4) mg/dL Total Bilirubin (0.2-1.0) mg/dL AST (15-37) U/L ALT (16-63) U/L Alkaline Phosphatase (46-116) U/L Troponin I (0.00-0.056) ng/mL C-Reactive Protein 4.5 H* (<1.0) mg/dL NT-Pro-B Natriuret Pep (0-125) pg/mL Total Protein (6.4-8.2) g/dl Albumin (3.4-5.0) g/dl Globulin gm/dL Albumin/Globulin Ratio (1-2) Lipase (73-393) U/L Urine Color (Yellow) Urine Appearance (Clear) Urine pH (5.0-8.0) Ur Specific [place] (1.005-1.030) Urine Protein (Negative) Urine Glucose (UA) (Negative) Urine Ketones (Negative) Urine Occult Blood (Negative) Urine Nitrite (Negative) Urine Bilirubin (Negative) Urine Urobilinogen (0.2-1.0) Ur Leukocyte Esterase (Negative) Urine RBC (0-5) /hpf Urine WBC (0-5) /hpf Ur Squamous Epith Cells (0-5) /hpf Urine Bacteria (FEW) /hpf Urine Mucus (FEW) /hpf Ethyl Alcohol (0.00) gm% SARS-CoV-2 RNA (ANSELMO) (NEGATIVE) MRSA (PCR) 12/24/20 Range/Units 06:48 WBC (4.23-9.07) K/mm3 RBC (4.63-6.08) M/mm3 Hgb (13.7-17.5) gm/dl Hct (40.1-51.0) % MCV (79.0-92.2) fl MCH (25.7-32.2) pg MCHC (32.2-35.5) g/dl RDW Std Deviation (35.1-43.9) fL Plt Count (163-337) K/mm3 MPV (9.4-12.3) fl Neut % (Auto) (34.0-67.9) % Lymph % (Auto) (21.8-53.1) % [place] % (Auto) (5.3-12.2) % Eos % (Auto) (0.8-7.0) Baso % (Auto) (0.1-1.2) % Neut # (Auto) (1.78-5.38) K/mm3 Lymph # (Auto) (1.32-3.57) K/mm3 [place] # (Auto) (0.30-0.82) K/mm3 Eos # (Auto) (0.04-0.54) K/mm3 Baso # (Auto) (0.01-0.08) K/mm3 Neutrophils % (Manual) (40-60) % Band Neutrophils % (0-10) % Lymphocytes % (Manual) (20-40) % Atypical Lymphs % % Monocytes % (Manual) (2-10) % Eosinophils % (Manual) (0.8-7.0) % Basophils % (Manual) (0.2-1.2) Manual Slide Review Platelet Estimate Hypochromasia Anisocytosis RBC Morph Comment ESR (0-15) mm/hr PT (9.7-12.0) SECONDS INR APTT (21.7-31.4) SECONDS Sodium (136-145) mEq/L Potassium (3.5-5.1) mEq/L Chloride (98-107) mEq/L Carbon Dioxide (21-32) mEq/L Anion Gap (5-15) BUN (7-18) mg/dL Creatinine (0.7-1.3) mg/dL Est Cr Clr Drug Dosing mL/min Estimated GFR (MDRD) (>60) mL/min BUN/Creatinine Ratio (14-18) Glucose (70-99) mg/dL POC Glucose 157 H (70-99) mg/dL Hemoglobin A1c ( - 5.6) % Lactic Acid (0.4-2.0) mmol/L Calcium (8.5-10.1) mg/dL Magnesium (1.8-2.4) mg/dL Total Bilirubin (0.2-1.0) mg/dL AST (15-37) U/L ALT (16-63) U/L Alkaline Phosphatase (46-116) U/L Troponin I (0.00-0.056) ng/mL C-Reactive Protein (<1.0) mg/dL NT-Pro-B Natriuret Pep (0-125) pg/mL Total Protein (6.4-8.2) g/dl Albumin (3.4-5.0) g/dl Globulin gm/dL Albumin/Globulin Ratio (1-2) Lipase (73-393) U/L Urine Color (Yellow) Urine Appearance (Clear) Urine pH (5.0-8.0) Ur Specific [place] (1.005-1.030) Urine Protein (Negative) Urine Glucose (UA) (Negative) Urine Ketones (Negative) Urine Occult Blood (Negative) Urine Nitrite (Negative) Urine Bilirubin (Negative) Urine Urobilinogen (0.2-1.0) Ur Leukocyte Esterase (Negative) Urine RBC (0-5) /hpf Urine WBC (0-5) /hpf Ur Squamous Epith Cells (0-5) /hpf Urine Bacteria (FEW) /hpf Urine Mucus (FEW) /hpf Ethyl Alcohol (0.00) gm% SARS-CoV-2 RNA (ANSELMO) (NEGATIVE) MRSA (PCR) Result Diagrams: 12/24/20 04:59 12/24/20 04:59 Sepsis Event Note - Focused Exam Vital Signs: Vital Signs Temp Pulse Resp BP Pulse Ox Pulse Ox 12/24/20 06:45 98.2 F 73 20 156/56 H 94 L 12/24/20 03:12 94 L 12/23/20 21:56 97.9 F 69 18 155/65 H 95 12/23/20 20:54 93 L - Problem List & Annotations (1) CHF exacerbation SNOMED Code(s): 594176357, 67410599302397 Code(s): I50.9 - HEART FAILURE, UNSPECIFIED Status: Acute Priority: Medium Current Visit: Yes Qualifiers: Heart failure type: unspecified Qualified Code(s): I50.9 - Heart failure, unspecified (2) Cardiomyopathy SNOMED Code(s): 26692156 Code(s): I42.9 - CARDIOMYOPATHY, UNSPECIFIED Status: Chronic Priority: Medium Current Visit: Yes Qualifiers: Cardiomyopathy type: unspecified Qualified Code(s): I42.9 - Cardiomyopathy, unspecified (3) Chronic neck pain SNOMED Code(s): 1543933792675 Code(s): M54.2 - CERVICALGIA; G89.29 - OTHER CHRONIC PAIN Status: Chronic Priority: Low Current Visit: No (4) Gout SNOMED Code(s): 28964721 Code(s): M10.9 - GOUT, UNSPECIFIED Status: Chronic Priority: Low Current Visit: No Qualifiers: Gout site: unspecified site Gout etiology: unspecified cause Chronicity: chronic Presence of tophus: without tophus Qualified Code(s): M1A.9XX0 - Chronic gout, unspecified, without tophus (tophi) (5) Right below-knee amputee SNOMED Code(s): 383603469, 209928246, 424884261 Code(s): Z89.511 - ACQUIRED ABSENCE OF RIGHT LEG BELOW KNEE Status: Chronic Priority: Medium Current Visit: Yes (6) Depression SNOMED Code(s): 09332401 Code(s): F32.9 - MAJOR DEPRESSIVE DISORDER, SINGLE EPISODE, UNSPECIFIED Status: Chronic Priority: Low Current Visit: No Qualifiers: Depression Type: other depression Qualified Code(s): F32.89 - Other specified depressive episodes (7) Insomnia SNOMED Code(s): 141044241 Code(s): G47.00 - INSOMNIA, UNSPECIFIED Status: Chronic Priority: Low Current Visit: No Qualifiers: Insomnia type: unspecified Qualified Code(s): G47.00 - Insomnia, unspecified (8) History of substance abuse SNOMED Code(s): 476353205 Code(s): F19.11 - OTHER PSYCHOACTIVE SUBSTANCE ABUSE, IN REMISSION Status: Chronic Priority: Low Current Visit: No (9) Opioid dependence SNOMED Code(s): 66440483 Code(s): F11.20 - OPIOID DEPENDENCE, UNCOMPLICATED Status: Chronic Priority: Medium Current Visit: Yes Qualifiers: Substance use status: with unspecified opioid-induced disorder Qualified Code(s): F11.29 - Opioid dependence with unspecified opioid-induced disorder (10) Post laminectomy syndrome SNOMED Code(s): 15854607 Code(s): M96.1 - POSTLAMINECTOMY SYNDROME, NOT ELSEWHERE CLASSIFIED Status: Chronic Priority: Low Current Visit: No (11) Chronic pain syndrome SNOMED Code(s): 744395195 Code(s): G89.4 - CHRONIC PAIN SYNDROME Status: Chronic Priority: Low Current Visit: No (12) Obesity SNOMED Code(s): 950780087, 588404622 Code(s): E66.9 - OBESITY, UNSPECIFIED Status: Chronic Priority: Low Current Visit: Yes Qualifiers: Obesity type: unspecified obesity type Obesity classification: adult class 3 (BMI >= 40) Serious obesity comorbidity presence: with serious comorbidity Body mass index: BMI 40.0-44.9 Qualified Code(s): E66.01 - Morbid (severe) obesity due to excess calories; Z68.41 - Body mass index [BMI]40.0-44.9, adult (13) History of hypokalemia SNOMED Code(s): 475077688 Code(s): Z86.39 - PERSONAL HISTORY OF ENDO, NUTRITIONAL AND METABOLIC DISEASE Status: Chronic Priority: Low Current Visit: No (14) Cellulitis, abdominal wall SNOMED Code(s): 21494240 Code(s): L03.311 - CELLULITIS OF ABDOMINAL WALL Status: Acute Priority: High Current Visit: Yes (15) Hypomagnesemia SNOMED Code(s): 827505255 Code(s): E83.42 - HYPOMAGNESEMIA Status: Acute Priority: Medium Current Visit: No Onset Date: 07/21/15 Annotation/Comment:: - Replete prior to d/c (16) Benign prostatic hyperplasia SNOMED Code(s): 364440220 Code(s): N40.0 - BENIGN PROSTATIC HYPERPLASIA WITHOUT LOWER URINRY TRACT SYMP Status: Chronic Priority: Low Current Visit: No Qualifiers: Lower urinary tract symptom presence: unspecified whether lower urinary tract symptoms present Qualified Code(s): N40.0 - Benign prostatic hyperplasia without lower urinary tract symptoms (17) CKD (chronic kidney disease) SNOMED Code(s): 982118432 Code(s): N18.9 - CHRONIC KIDNEY DISEASE, UNSPECIFIED Status: Chronic Priority: Medium Current Visit: No Qualifiers: Chronic kidney disease stage: unspecified stage Qualified Code(s): N18.9 - Chronic kidney disease, unspecified (18) COPD (chronic obstructive pulmonary disease) SNOMED Code(s): 75773291 Code(s): J44.9 - CHRONIC OBSTRUCTIVE PULMONARY DISEASE, UNSPECIFIED Status: Chronic Priority: Medium Current Visit: No Qualifiers: COPD type: unspecified COPD Qualified Code(s): J44.9 - Chronic obstructive pulmonary disease, unspecified (19) Carotid occlusion, left SNOMED Code(s): 255383401026378 Code(s): I65.22 - OCCLUSION AND STENOSIS OF LEFT CAROTID ARTERY Status: Chronic Priority: Low Current Visit: No (20) Chronic back pain SNOMED Code(s): 263975738 Code(s): M54.9 - DORSALGIA, UNSPECIFIED; G89.29 - OTHER CHRONIC PAIN Status: Chronic Priority: Low Current Visit: No Qualifiers: Back pain location: back pain in unspecified location Back pain laterality: unspecified Qualified Code(s): M54.9 - Dorsalgia, unspecified; G89.29 - Other chronic pain (21) Chronic migraine SNOMED Code(s): 486882749 Code(s): G43.709 - CHRONIC MIGRAINE W/O AURA, NOT INTRACTABLE, W/O STAT MIGR Status: Chronic Priority: Low Current Visit: No (22) Coronary artery disease SNOMED Code(s): 74632136 Code(s): I25.10 - ATHSCL HEART DISEASE OF PILOT STATION CORONARY ARTERY W/O ANG PCTRS Status: Chronic Priority: Low Current Visit: No Qualifiers: Coronary Disease-Associated Artery/Lesion type: unspecified vessel or lesion type [place] vs. transplanted heart: unspecified whether [place] or transplanted heart Associated angina: angina presence unspecified (23) Diabetes mellitus type 2 in obese SNOMED Code(s): 19396220 Code(s): E11.9 - TYPE 2 DIABETES MELLITUS WITHOUT COMPLICATIONS; E66.9 - OBESITY, UNSPECIFIED Status: Chronic Priority: Medium Current Visit: No (24) Edema of lower extremity SNOMED Code(s): 453588235 Code(s): R60.0 - LOCALIZED EDEMA Status: Chronic Priority: High Current Visit: Yes (25) GERD (gastroesophageal reflux disease) SNOMED Code(s): 173264579 Code(s): K21.9 - GASTRO-ESOPHAGEAL REFLUX DISEASE WITHOUT ESOPHAGITIS Status: Chronic Priority: Low Current Visit: No Qualifiers: Esophagitis presence: esophagitis presence not specified Qualified Code(s): K21.9 - Gastro-esophageal reflux disease without esophagitis (26) History of CVA (cerebrovascular accident) SNOMED Code(s): 274467244 Code(s): Z86.73 - PRSNL HX OF TIA (TIA), AND CEREB INFRC W/O RESID DEFICITS Status: Chronic Priority: Low Current Visit: No (27) History of MO (myocardial infarction) SNOMED Code(s): 038001896 Code(s): I25.2 - OLD MYOCARDIAL INFARCTION Status: Chronic Priority: Low Current Visit: No (28) History of deep vein thrombosis SNOMED Code(s): 687625512 Code(s): Z86.718 - PERSONAL HISTORY OF OTHER VENOUS THROMBOSIS AND EMBOLISM Status: Chronic Priority: Low Current Visit: No (29) Obstructive sleep apnea SNOMED Code(s): 76828164 Code(s): G47.33 - OBSTRUCTIVE SLEEP APNEA (ADULT) (PEDIATRIC) Status: Chronic Priority: Medium Current Visit: No (30) Paroxysmal atrial fibrillation SNOMED Code(s): 328176734 Code(s): I48.0 - PAROXYSMAL ATRIAL FIBRILLATION Status: Chronic Priority: Medium Current Visit: No (31) Stented coronary artery Status: Chronic Priority: Low Current Visit: No (32) Resides in senior care facility SNOMED Code(s): 325672582 Code(s): Z78.9 - OTHER SPECIFIED HEALTH STATUS Status: Chronic Priority: Low Current Visit: Yes - Problem List Review Problem List Initiated/Reviewed/Updated: Yes - My Orders Last 24 Hours: My Active Orders 12/23/20 15:56 Acetaminophen [TylenoL] 650 mg PO BID PRN bisacodyL [Dulcolax] 10 mg RECTAL DAILY PRN traMADol [Ultram] 50 mg PO TID PRN 12/23/20 16:04 Blood Glucose Check, Bedside [RC] QIDACANDBED OT Evaluation and Treatment [CONS] Routine PT Evaluation and Treatment [CONS] Routine Respiratory Care Assess and Treatment [CONS] Routine 12/23/20 16:21 Sennosides [Senna] 17.2 mg PO BEDTIME PRN 12/23/20 Dinner 2 Gram Sodium Diet [DIET] Fluid Restriction [DIET] Insulin Lispro [HumaLOG] See Protocol SUBCUT QIDACANDBED cefTRIAXone [Rocephin] 2 gm Sodium Chloride 0.9% [Normal Saline] 100 ml IV Q24H 12/23/20 17:04 Patient Status [ADT] Routine 12/23/20 17:07 Consult to Design Maintenance Engineer [CONS] Routine 12/23/20 18:00 Lactulose [Cephulac] 40 gm PO QPM Metoprolol Succinate [Toprol XL] 50 mg PO QPM OLANZapine [ZyPREXA] 20 mg PO QPM Rivaroxaban [Xarelto] 20 mg PO QPM 12/23/20 21:00 Albuterol/Ipratropium [DuoNeb 3.0-0.5 MG/3 ML] 3 ml INH Q6HRRT Gabapentin [Neurontin] 300 mg PO TID Melatonin 3 mg PO BEDTIME Sertraline [Zoloft] 75 mg PO BEDTIME Tamsulosin [Flomax] 0.8 mg PO BEDTIME 12/24/20 06:00 Furosemide [Lasix] 40 mg IVPUSH BIDDIURETIC 12/24/20 Breakfast ADA Diabetic [[place] [employer] Diet] [DIET] 12/24/20 07:18 BASIC METABOLIC PANEL,BMP [CHEM] Routine 12/24/20 09:00 Aspirin [Halfprin] 81 mg PO DAILY atorvaSTATin [Lipitor] 20 mg PO DAILY 12/25/20 05:11 CBC WITH AUTO DIFF [HEME] AM CMP [COMPREHENSIVE METABOLIC PN,CMP] [CHEM] AM CRP [C-REACTIVE PROTEIN] [CHEM] AM MAGNESIUM [CHEM] AM 12/26/20 05:11 CBC WITH AUTO DIFF [HEME] AM CMP [COMPREHENSIVE METABOLIC PN,CMP] [CHEM] AM CRP [C-REACTIVE PROTEIN] [CHEM] AM MAGNESIUM [CHEM] AM 12/27/20 05:11 CBC WITH AUTO DIFF [HEME] AM CMP [COMPREHENSIVE METABOLIC PN,CMP] [CHEM] AM CRP [C-REACTIVE PROTEIN] [CHEM] AM MAGNESIUM [CHEM] AM - Assessment Assessment:: Admittsion date: 12/23/2020: * 65-year-old male who presents to ED via [facility] with abdominal pain and chills which developed last night * History of A. fib, VTE, CAD, cardiomyopathy, heart failure, HLD, hypertension, [place], PVD, stent placement, occlusion of the left carotid artery, COPD, sleep apnea, hypoxia, GERD, chronic renal insufficiency, BPH, chronic back pain, gout, right below the knee amputation, CVA, migraines, spinal stenosis, postlaminectomy syndrome, depression, insomnia, opioid dependence, psychosis, chronic pain syndrome, type II DM, hypothyroidism, obesity, hypokalemia, hypomagnesemia * Resides at [facility] * Reports diffuse redness and tenderness with abdominal wall below his umbilicus and right quadrant * Reports dyspnea with minimal exertion and needing oxygen recently * Denies sputum production but does report an occasional nonproductive cough * Chronic edema to left lower extremity * Denies any nausea or vomiting * Patient does report having spilled hot coffee on his abdomen about a week ago but he was unable to to do this due to his body habitus. He does not think that it was blistered. * 12-lead EKG is obtained showing a sinus rhythm at 73 bpm with borderline first-degree AV block and left atrial hypertrophy. There is initial poor R wave progression and decreased voltage in the limb leads. T wave inversion in V1 through V4 and flattening of T wave in V5 is noted in a minimally prolonged QT segment is also observed. * Labs are obtained: * WBC8.71. * Hemoglobin 13.9. * Hematocrit 50.3. * Platelet 191. * Neutrophils 77%. There is no bandemia. * INR 1.27. * aPTT 31.4. * Sodium 144. * Potassium 4.0. * Chloride 102. * Carbon dioxide 40. * Anion gap 6.0. * BUN 21. Creatinine 1.0. GFR greater than 60. * Glucose 222. * Calcium 8.6. * Magnesium 1.9. * Total bilirubin 0.6. * AST 15, ALT 19, alkaline phosphatase 117. * Troponin is less than 0.017. * CRP 6.3. * Protein i6.5. * Albumin 3.3. * Lipase 43. * Blood ethyl alcohol 0.00. * ESR 2. * Hemoglobin A1c 8.8%. * proBNP 908. * UA is obtained and is concentrated but negative. * Blood cultures were obtained and are pending * Chest x-ray is obtained showing findings suspicious for minimal CHF. * CT of the abdomen and pelvis is obtained showing: * 1. Increased density within the subcutaneous fat as well as skin thickening mostly anteriorly. This presumably represents edema and is difficult to exclude cellulitis. * 2. Increased density within the left lung base. Difficult to exclude pneumonia if patient has infectious symptoms. * 3. Increased density within the gallbladder presumably representing gallstones. * 4. Other findings as described above which are nonacute. * He started on clindamycin 900 mg IV. * There are no concerning signs for sepsis. * Patient admitted to the medical floor for management of his cellulitis and mild CHF exacerbation. 12/25/2020 65-year-old male admitted for cellulitis of his abdomen and mild CHF exacerbation. Patient was switched to Rocephin 2 g daily. MRSA screen was negative. Labs today show a mild leukocytosis at 10.03. Hemoglobin is 13.8. Platelet 182,000. Neutrophils are elevated at 76.8. Sodium is 14.3. Potassium 3.8. Chloride 99. Carbon dioxide 37. Anion gap 10.8. BUN is 20. Creatinine 1.0. GFR is greater than 60. Glucose has been 157-208. Magnesium is 1.9. CRP is down to 4.5. He is on 40 mg twice daily diuretic dosing and has been having some urine output. He reports he feels better and less short of breath. He reports his abdominal pain is better and feels less full. Blood cultures are still pending. We will continue current treatment plan pending future labs and blood culture results. Likely discharge in 1 to 2 days pending continued improvement. - Plan Plan:: Cellulitis, abdominal wall Resides in senior care facility * Switched from clindamycin to Rocephin 2gm daily after discussion with Dr. Polk * MRSA screen negative * Daily labs * Monitor for signs of drainage * Monitor for signs of abscess (none seen on CT of abdomen) * Await blood cultures CHF exacerbation, mild Cardiomyopathy Edema of lower extremity * 40mg IVP Lasix BID diuretic * Hold home PO Lasix * Monitor output * Telemetry * Review prior echocardiograms * Consider echo * 2gm sodium restriction * 1.5L fluid restriction * O2 as needed to keep saturations >88% * Monitor daily labs History of CVA (cerebrovascular accident) History of MO (myocardial infarction) History of deep vein thrombosis Paroxysmal atrial fibrillation Stented coronary artery Carotid occlusion, left Coronary artery disease * Continue home Xarelto * Continue home statin * Telemetry * No acute concerns History of substance abuse Opioid dependence Post laminectomy syndrome Chronic pain syndrome Chronic neck pain Right below-knee amputee Chronic back pain Chronic migraine * Pain medications as ordered * PT/OT * Up to chair * No acute concerns Gout * No acute concerns Depression * No acute concerns * Home medications as ordered Insomnia * No acute concerns * Continue home melatonin Obesity * No acute concerns * Design Maintenance Engineer consultation History of hypokalemia Hypomagnesemia * Monitor labs * Supplement as needed Benign prostatic hyperplasia * No acute concerns * Continue home medications CKD (chronic kidney disease) * No acute concerns * Monitor output * Monitor labs * Hold home Losartan for now COPD (chronic obstructive pulmonary disease) Obstructive sleep apnea * RT consultation * Home respiratory meds as ordered Diabetes mellitus type 2 in obese * QID AC and bedtime glucose checks * Medium intensity sliding scale insulin * Diabetic diet GERD (gastroesophageal reflux disease) * No acute concerns * Monitor Code status: Full code PCP: Dr. Lloyd DVT prophylaxis: Home Xarelto Social: Patient resides at [facility] Disposition: Patient admitted for management of abdominal wall cellulitis and mild CHF exacerbation. Length of stay likely 2 to 3 days.
[2020-12-24] MEDS: Insulin Lispro 100 UNIT/ML 10 ML Vial SUBCUT SCH ×4 (08:24→21:01)
[2020-12-24] MEDS: atorvaSTATin 20 MG Tab PO SCH (08:25)
[2020-12-24] MEDS: Gabapentin 300 MG Cap PO SCH ×3 (08:25→20:54)
[2020-12-24] MEDS: Aspirin 81 MG Tab.EC PO SCH (08:25)
[2020-12-24] MEDS ORDERED: Furosemide 40 MG Tab PO SCH (09:00)
[2020-12-24] MEDS ORDERED: Furosemide 20 MG Tab PO SCH (12:00)
[2020-12-24] MEDS: cefTRIAXone 2 GM in Sodium Chloride 0.9% 100 ML IV SCH (16:10)
[2020-12-24] MEDS: Metoprolol Succinate 50 MG Tab.ER PO SCH (18:25)
[2020-12-24] MEDS: Rivaroxaban 10 MG Tab PO SCH (18:27)
[2020-12-24] MEDS: OLANZapine 5 MG Tab PO SCH (18:27)
[2020-12-24] MEDS: Lactulose Soln 10 GM/15 ML 30 ML UD Cup PO SCH ×2 (18:30→18:34)
[2020-12-24] MEDS: Tamsulosin 0.4 MG Cap.ER PO SCH (20:54)
[2020-12-24] MEDS: Sertraline 25 MG Tab PO SCH (20:54)
[2020-12-24] MEDS: traMADol 50 MG Tab PO PRN (20:55)
[2020-12-24] MEDS: Melatonin 3 MG Tab PO SCH (20:56)
[2020-12-25] MEDS: Albuterol/Ipratropium 3.0-0.5 MG/3 ML Neb Soln INH SCH ×4 (03:06→20:56)
[2020-12-25] MEDS: Furosemide 40 MG/4 ML VIAL IVPUSH SCH ×2 (05:57→14:28)
[2020-12-25] MEDS: Insulin Lispro 100 UNIT/ML 10 ML Vial SUBCUT SCH ×5 (08:21→21:19)
[2020-12-25] MEDS: Aspirin 81 MG Tab.EC PO SCH (08:22)
[2020-12-25] MEDS: atorvaSTATin 20 MG Tab PO SCH (08:23)
[2020-12-25] MEDS: Gabapentin 300 MG Cap PO SCH ×3 (08:23→20:40)
--- NOTE | 2020-12-25 12:57 | PCM.PN ---
- General Info Date of Service: 12/25/20 Admission Dx/Problem (Free Text): Admission Diagnosis/Problem Admission Diagnosis/Problem Abdominal pain Subjective Update: overnight events reviewed patient diuresing well denies chest pain or pressure no diarrhea Functional Status: Reports: Pain Controlled, Tolerating Diet - Review of Systems General: Reports: Weakness HEENT: Reports: No Symptoms Pulmonary: Reports: No Symptoms Cardiovascular: Reports: No Symptoms Musculoskeletal: Reports: No Symptoms Skin: Reports: No Symptoms Neurological: Reports: No Symptoms - Patient Data Vitals - Most Recent: Last Vital Signs Temp 98.1 F 12/25/20 08:22 Pulse 76 12/25/20 08:22 Resp 18 12/25/20 08:22 BP 148/62 H 12/25/20 08:22 Pulse Ox 95 12/25/20 09:00 Weight - Most Recent: 320 lb 14.4 oz I&O - Last 24 Hours: Intake & Output 12/24/20 12/25/20 12/25/20 22:59 06:59 14:59 Intake Total 880 300 120 Balance 880 300 120 Lab Results Last 24 Hours: Laboratory Results - last 24 hr 12/24/20 12/24/20 12/25/20 Range/Units 17:33 20:52 06:01 WBC (4.23-9.07) K/mm3 RBC (4.63-6.08) M/mm3 Hgb (13.7-17.5) gm/dl Hct (40.1-51.0) % MCV (79.0-92.2) fl MCH (25.7-32.2) pg MCHC (32.2-35.5) g/dl RDW Std Deviation (35.1-43.9) fL Plt Count (163-337) K/mm3 MPV (9.4-12.3) fl Neut % (Auto) (34.0-67.9) % Lymph % (Auto) (21.8-53.1) % Norton % (Auto) (5.3-12.2) % Eos % (Auto) (0.8-7.0) Baso % (Auto) (0.1-1.2) % Neut # (Auto) (1.78-5.38) K/mm3 Lymph # (Auto) (1.32-3.57) K/mm3 Norton # (Auto) (0.30-0.82) K/mm3 Eos # (Auto) (0.04-0.54) K/mm3 Baso # (Auto) (0.01-0.08) K/mm3 Sodium (136-145) mEq/L Potassium (3.5-5.1) mEq/L Chloride (98-107) mEq/L Carbon Dioxide (21-32) mEq/L Anion Gap (5-15) BUN (7-18) mg/dL Creatinine (0.7-1.3) mg/dL Est Cr Clr Drug Dosing mL/min Estimated GFR (MDRD) (>60) mL/min BUN/Creatinine Ratio (14-18) Glucose (70-99) mg/dL POC Glucose 176 H 232 H 171 H (70-99) mg/dL Calcium (8.5-10.1) mg/dL Magnesium (1.8-2.4) mg/dL Total Bilirubin (0.2-1.0) mg/dL AST (15-37) U/L ALT (16-63) U/L Alkaline Phosphatase (46-116) U/L C-Reactive Protein (<1.0) mg/dL Total Protein (6.4-8.2) g/dl Albumin (3.4-5.0) g/dl Globulin gm/dL Albumin/Globulin Ratio (1-2) 12/25/20 12/25/20 12/25/20 Range/Units 06:45 06:45 11:16 WBC 10.54 H (4.23-9.07) K/mm3 RBC 5.72 (4.63-6.08) M/mm3 Hgb 13.8 (13.7-17.5) gm/dl Hct 49.7 (40.1-51.0) % MCV 86.9 (79.0-92.2) fl MCH 24.1 L (25.7-32.2) pg MCHC 27.8 L (32.2-35.5) g/dl RDW Std Deviation 55.5 H (35.1-43.9) fL Plt Count 195 (163-337) K/mm3 MPV 10.7 (9.4-12.3) fl Neut % (Auto) 76.4 H (34.0-67.9) % Lymph % (Auto) 10.0 L (21.8-53.1) % Norton % (Auto) 9.4 (5.3-12.2) % Eos % (Auto) 3.5 (0.8-7.0) Baso % (Auto) 0.4 (0.1-1.2) % Neut # (Auto) 8.06 H (1.78-5.38) K/mm3 Lymph # (Auto) 1.05 L (1.32-3.57) K/mm3 Norton # (Auto) 0.99 H (0.30-0.82) K/mm3 Eos # (Auto) 0.37 (0.04-0.54) K/mm3 Baso # (Auto) 0.04 (0.01-0.08) K/mm3 Sodium 145 (136-145) mEq/L Potassium 3.8 (3.5-5.1) mEq/L Chloride 102 (98-107) mEq/L Carbon Dioxide 39 H (21-32) mEq/L Anion Gap 7.8 (5-15) BUN 18 (7-18) mg/dL Creatinine 0.9 (0.7-1.3) mg/dL Est Cr Clr Drug Dosing 89.81 mL/min Estimated GFR (MDRD) > 60 (>60) mL/min BUN/Creatinine Ratio 20.0 H (14-18) Glucose 184 H (70-99) mg/dL POC Glucose 195 H (70-99) mg/dL Calcium 9.2 (8.5-10.1) mg/dL Magnesium 2.0 (1.8-2.4) mg/dL Total Bilirubin 0.6 (0.2-1.0) mg/dL AST 13 L (15-37) U/L ALT 20 (16-63) U/L Alkaline Phosphatase 115 (46-116) U/L C-Reactive Protein 4.9 H* (<1.0) mg/dL Total Protein 6.8 (6.4-8.2) g/dl Albumin 3.3 L (3.4-5.0) g/dl Globulin 3.5 gm/dL Albumin/Globulin Ratio 0.9 L (1-2) Clarke Results Last 24 Hours: Microbiology 12/23/20 11:33 Blood Culture - Preliminary Blood - Venous - Lab Draw 12/23/20 11:21 Blood Culture - Preliminary Blood - Venous Med Orders - Current: Current Medications Acetaminophen (Acetaminophen 325 Mg Tab) 650 mg PO BID PRN PRN Reason: Pain Albuterol/Ipratropium (Albuterol/Ipratropium 3.0-0.5 Mg/3 Ml Neb Soln) 3 ml INH Q6HRRT [facility] Last Admin: 12/25/20 08:59 Dose: 3 ml Documented by: Aspirin (Aspirin 81 Mg Tab.Ec) 81 mg PO DAILY [facility] Last Admin: 12/25/20 08:22 Dose: 81 mg Documented by: Atorvastatin Calcium (Atorvastatin 20 Mg Tab) 20 mg PO DAILY [facility] Last Admin: 12/25/20 08:23 Dose: 20 mg Documented by: Bisacodyl (Bisacodyl 10 Mg Supp) 10 mg RECTAL DAILY PRN PRN Reason: Constipation Furosemide (Furosemide 40 Mg/4 Ml Vial) 40 mg IVPUSH BIDDIURETIC [facility] Last Admin: 12/25/20 05:57 Dose: 40 mg Documented by: Gabapentin (Gabapentin 300 Mg Cap) 300 mg PO TID [facility] Last Admin: 12/25/20 08:23 Dose: 300 mg Documented by: Ceftriaxone Sodium 2 gm/ (Sodium Chloride) 100 mls @ 200 mls/hr IV Q24H [facility] Last Admin: 12/24/20 16:10 Dose: 200 mls/hr Documented by: Insulin Human Lispro (Insulin Lispro 100 Unit/Ml 10 Ml Vial) 0 unit SUBCUT QIDACANDBED [facility]; Protocol Last Admin: 12/25/20 11:53 Dose: 2 units Documented by: Lactulose (Lactulose Soln 10 Gm/15 Ml 30 Ml Ud Cup) 40 gm PO QPM [facility] Last Admin: 12/24/20 18:34 Dose: 20 gm Documented by: Melatonin (Melatonin 3 Mg Tab) 3 mg PO BEDTIME [facility] Last Admin: 12/24/20 20:56 Dose: 3 mg Documented by: Metoprolol Succinate (Metoprolol Succinate 50 Mg Tab.Er) 50 mg PO QPM [facility] Last Admin: 12/24/20 18:25 Dose: 50 mg Documented by: Olanzapine (Olanzapine 5 Mg Tab) 20 mg PO QPM [facility] Last Admin: 12/24/20 18:27 Dose: 20 mg Documented by: Rivaroxaban (Rivaroxaban 10 Mg Tab) 20 mg PO QPM [facility] Last Admin: 12/24/20 18:27 Dose: 20 mg Documented by: Senna (Sennosides 8.6 Mg Tab) 17.2 mg PO BEDTIME PRN PRN Reason: Constipation Last Admin: 12/23/20 18:22 Dose: 17.2 mg Documented by: Sertraline HCl (Sertraline 25 Mg Tab) 75 mg PO BEDTIME [facility] Last Admin: 12/24/20 20:54 Dose: 75 mg Documented by: Tamsulosin HCl (Tamsulosin 0.4 Mg Cap.Er) 0.8 mg PO BEDTIME [facility] Last Admin: 12/24/20 20:54 Dose: 0.8 mg Documented by: Tramadol HCl (Tramadol 50 Mg Tab) 50 mg PO TID PRN PRN Reason: Pain Last Admin: 12/24/20 20:55 Dose: 50 mg Documented by: Discontinued Medications Furosemide (Furosemide 40 Mg Tab) 40 mg PO DAILY [facility] Furosemide (Furosemide 20 Mg Tab) 20 mg PO DAILY@1200 [facility] Furosemide (Furosemide 40 Mg/4 Ml Vial) 40 mg IVPUSH NOW ONE Stop: 12/23/20 16:16 Last Admin: 12/23/20 18:24 Dose: 40 mg Documented by: Clindamycin Phosphate 900 mg/ (Premix) 50 mls @ 100 mls/hr IV ONETIME ONE Stop: 12/23/20 11:17 Last Admin: 12/23/20 11:32 Dose: 100 mls/hr Documented by: Non-Formulary Medication (Acetaminophen) 500 mg PO QID [facility] Sertraline HCl (Sertraline 50 Mg Tab) 50 mg PO BEDTIME [facility] - Exam Quality Assessment: Supplemental Oxygen General: Alert, Oriented HEENT: EOMI, Mucous Membr. Moist/[place]: Supple Lungs: Decreased Breath Sounds Cardiovascular: Regular Rate, Regular Rhythm GI/Abdominal Exam: Soft, Non-Tender, No Distention (2+ bilateral lower extremity edema) Skin: Warm, Dry Neurological: No New Focal Deficit Psy/Mental Status: Alert, Normal Affect - Patient Data Lab Results Last 24 hrs: Laboratory Results - last 24 hr 12/24/20 12/24/20 12/25/20 Range/Units 17:33 20:52 06:01 WBC (4.23-9.07) K/mm3 RBC (4.63-6.08) M/mm3 Hgb (13.7-17.5) gm/dl Hct (40.1-51.0) % MCV (79.0-92.2) fl MCH (25.7-32.2) pg MCHC (32.2-35.5) g/dl RDW Std Deviation (35.1-43.9) fL Plt Count (163-337) K/mm3 MPV (9.4-12.3) fl Neut % (Auto) (34.0-67.9) % Lymph % (Auto) (21.8-53.1) % Norton % (Auto) (5.3-12.2) % Eos % (Auto) (0.8-7.0) Baso % (Auto) (0.1-1.2) % Neut # (Auto) (1.78-5.38) K/mm3 Lymph # (Auto) (1.32-3.57) K/mm3 Norton # (Auto) (0.30-0.82) K/mm3 Eos # (Auto) (0.04-0.54) K/mm3 Baso # (Auto) (0.01-0.08) K/mm3 Sodium (136-145) mEq/L Potassium (3.5-5.1) mEq/L Chloride (98-107) mEq/L Carbon Dioxide (21-32) mEq/L Anion Gap (5-15) BUN (7-18) mg/dL Creatinine (0.7-1.3) mg/dL Est Cr Clr Drug Dosing mL/min Estimated GFR (MDRD) (>60) mL/min BUN/Creatinine Ratio (14-18) Glucose (70-99) mg/dL POC Glucose 176 H 232 H 171 H (70-99) mg/dL Calcium (8.5-10.1) mg/dL Magnesium (1.8-2.4) mg/dL Total Bilirubin (0.2-1.0) mg/dL AST (15-37) U/L ALT (16-63) U/L Alkaline Phosphatase (46-116) U/L C-Reactive Protein (<1.0) mg/dL Total Protein (6.4-8.2) g/dl Albumin (3.4-5.0) g/dl Globulin gm/dL Albumin/Globulin Ratio (1-2) 12/25/20 12/25/20 12/25/20 Range/Units 06:45 06:45 11:16 WBC 10.54 H (4.23-9.07) K/mm3 RBC 5.72 (4.63-6.08) M/mm3 Hgb 13.8 (13.7-17.5) gm/dl Hct 49.7 (40.1-51.0) % MCV 86.9 (79.0-92.2) fl MCH 24.1 L (25.7-32.2) pg MCHC 27.8 L (32.2-35.5) g/dl RDW Std Deviation 55.5 H (35.1-43.9) fL Plt Count 195 (163-337) K/mm3 MPV 10.7 (9.4-12.3) fl Neut % (Auto) 76.4 H (34.0-67.9) % Lymph % (Auto) 10.0 L (21.8-53.1) % Norton % (Auto) 9.4 (5.3-12.2) % Eos % (Auto) 3.5 (0.8-7.0) Baso % (Auto) 0.4 (0.1-1.2) % Neut # (Auto) 8.06 H (1.78-5.38) K/mm3 Lymph # (Auto) 1.05 L (1.32-3.57) K/mm3 Norton # (Auto) 0.99 H (0.30-0.82) K/mm3 Eos # (Auto) 0.37 (0.04-0.54) K/mm3 Baso # (Auto) 0.04 (0.01-0.08) K/mm3 Sodium 145 (136-145) mEq/L Potassium 3.8 (3.5-5.1) mEq/L Chloride 102 (98-107) mEq/L Carbon Dioxide 39 H (21-32) mEq/L Anion Gap 7.8 (5-15) BUN 18 (7-18) mg/dL Creatinine 0.9 (0.7-1.3) mg/dL Est Cr Clr Drug Dosing 89.81 mL/min Estimated GFR (MDRD) > 60 (>60) mL/min BUN/Creatinine Ratio 20.0 H (14-18) Glucose 184 H (70-99) mg/dL POC Glucose 195 H (70-99) mg/dL Calcium 9.2 (8.5-10.1) mg/dL Magnesium 2.0 (1.8-2.4) mg/dL Total Bilirubin 0.6 (0.2-1.0) mg/dL AST 13 L (15-37) U/L ALT 20 (16-63) U/L Alkaline Phosphatase 115 (46-116) U/L C-Reactive Protein 4.9 H* (<1.0) mg/dL Total Protein 6.8 (6.4-8.2) g/dl Albumin 3.3 L (3.4-5.0) g/dl Globulin 3.5 gm/dL Albumin/Globulin Ratio 0.9 L (1-2) Result Diagrams: 12/25/20 06:45 12/25/20 06:45 Clarke Results Last 24 hrs: Microbiology 12/23/20 11:33 Blood Culture - Preliminary Blood - Venous - Lab Draw 12/23/20 11:21 Blood Culture - Preliminary Blood - Venous Sepsis Event Note - Focused Exam Vital Signs: Vital Signs Temp Pulse Resp BP Pulse Ox Pulse Ox 12/25/20 09:00 95 12/25/20 08:22 98.1 F 76 18 148/62 H 92 L 12/25/20 05:53 97.9 F 69 13 157/67 H 97 12/25/20 03:08 93 L - Problem List Review Problem List Initiated/Reviewed/Updated: Yes - Assessment Assessment:: Admittsion date: 12/23/2020: * 65-year-old male who presents to ED via [facility] with abdominal pain and chills which developed last night * History of A. fib, VTE, CAD, cardiomyopathy, heart failure, HLD, hypertension, SC, PVD, stent placement, occlusion of the left carotid artery, COPD, sleep apnea, hypoxia, GERD, chronic renal insufficiency, BPH, chronic back pain, gout, right below the knee amputation, CVA, migraines, spinal stenosis, postlaminectomy syndrome, depression, insomnia, opioid dependence, psychosis, chronic pain syndrome, type II DM, hypothyroidism, obesity, hypokalemia, hypomagnesemia * Resides at [facility] * Reports diffuse redness and tenderness with abdominal wall below his umbilicus and right quadrant * Reports dyspnea with minimal exertion and needing oxygen recently * Denies sputum production but does report an occasional nonproductive cough * Chronic edema to left lower extremity * Denies any nausea or vomiting * Patient does report having spilled hot coffee on his abdomen about a week ago but he was unable to to do this due to his body habitus. He does not think that it was blistered. * 12-lead EKG is obtained showing a sinus rhythm at 73 bpm with borderline first-degree AV block and left atrial hypertrophy. There is initial poor R wave progression and decreased voltage in the limb leads. T wave inversion in V1 through V4 and flattening of T wave in V5 is noted in a minimally prolonged QT segment is also observed. * Labs are obtained: * WBC8.71. * Hemoglobin 13.9. * Hematocrit 50.3. * Platelet 191. * Neutrophils 77%. There is no bandemia. * INR 1.27. * aPTT 31.4. * Sodium 144. * Potassium 4.0. * Chloride 102. * Carbon dioxide 40. * Anion gap 6.0. * BUN 21. Creatinine 1.0. GFR greater than 60. * Glucose 222. * Calcium 8.6. * Magnesium 1.9. * Total bilirubin 0.6. * AST 15, ALT 19, alkaline phosphatase 117. * Troponin is less than 0.017. * CRP 6.3. * Protein i6.5. * Albumin 3.3. * Lipase 43. * Blood ethyl alcohol 0.00. * ESR 2. * Hemoglobin A1c 8.8%. * proBNP 908. * UA is obtained and is concentrated but negative. * Blood cultures were obtained and are pending * Chest x-ray is obtained showing findings suspicious for minimal CHF. * CT of the abdomen and pelvis is obtained showing: * 1. Increased density within the subcutaneous fat as well as skin thickening mostly anteriorly. This presumably represents edema and is difficult to exclude cellulitis. * 2. Increased density within the left lung base. Difficult to exclude pneumonia if patient has infectious symptoms. * 3. Increased density within the gallbladder presumably representing gallstones. * 4. Other findings as described above which are nonacute. * He started on clindamycin 900 mg IV. * There are no concerning signs for sepsis. * Patient admitted to the medical floor for management of his cellulitis and mild CHF exacerbation. 12/25/2020 65-year-old male admitted for cellulitis of his abdomen and mild CHF exacerbation. Patient was switched to Rocephin 2 g daily. MRSA screen was negative. Labs today show a mild leukocytosis at 10.03. Hemoglobin is 13.8. Platelet 182,000. Neutrophils are elevated at 76.8. Sodium is 14.3. Potassium 3.8. Chloride 99. Carbon dioxide 37. Anion gap 10.8. BUN is 20. Creatinine 1.0. GFR is greater than 60. Glucose has been 157-208. Magnesium is 1.9. CRP is down to 4.5. He is on 40 mg twice daily diuretic dosing and has been having some urine output. He reports he feels better and less short of breath. He reports his abdominal pain is better and feels less full. Blood cultures are still pending. We will continue current treatment plan pending future labs and blood culture results. 12/26/20 Continue IV lasix; appears volume overload on exam continue ceftriaxone potassium replacement check electrolytes tomorrow may consider repeat Echo on sunday - Plan Plan:: Cellulitis, abdominal wall Resides in snf facility * Switched from clindamycin to Rocephin 2gm daily after discussion with Dr. Polk * MRSA screen negative * Daily labs * Monitor for signs of drainage * Monitor for signs of abscess (none seen on CT of abdomen) * Await blood cultures CHF exacerbation, mild Cardiomyopathy Edema of lower extremity * 40mg IVP Lasix BID diuretic * Hold home PO Lasix * Monitor output * Telemetry * Review prior echocardiograms * Consider echo * 2gm sodium restriction * 1.5L fluid restriction * O2 as needed to keep saturations >88% * Monitor daily labs History of CVA (cerebrovascular accident) History of SC (myocardial infarction) History of deep vein thrombosis Paroxysmal atrial fibrillation Stented coronary artery Carotid occlusion, left Coronary artery disease * Continue home Xarelto * Continue home statin * Telemetry * No acute concerns History of substance abuse Opioid dependence Post laminectomy syndrome Chronic pain syndrome Chronic neck pain Right below-knee amputee Chronic back pain Chronic migraine * Pain medications as ordered * PT/OT * Up to chair * No acute concerns Gout * No acute concerns Depression * No acute concerns * Home medications as ordered Insomnia * No acute concerns * Continue home melatonin Obesity * No acute concerns * Instrument/Control Technician consultation History of hypokalemia Hypomagnesemia * Monitor labs * Supplement as needed Benign prostatic hyperplasia * No acute concerns * Continue home medications CKD (chronic kidney disease) * No acute concerns * Monitor output * Monitor labs * Hold home Losartan for now COPD (chronic obstructive pulmonary disease) Obstructive sleep apnea * RT consultation * Home respiratory meds as ordered Diabetes mellitus type 2 in obese * QID AC and bedtime glucose checks * Medium intensity sliding scale insulin * Diabetic diet GERD (gastroesophageal reflux disease) * No acute concerns * Monitor Code status: Full code PCP: Dr. Lloyd DVT prophylaxis: Home Xarelto Social: Patient resides at [facility] Disposition: Patient admitted for management of abdominal wall cellulitis and mild CHF exacerbation. Length of stay likely 2 to 3 days.
[2020-12-25] MEDS ORDERED: Potassium Chloride 20 MEQ Tab.ER PO ONE (12:59)
[2020-12-25] MEDS: Rivaroxaban 10 MG Tab PO SCH (17:31)
[2020-12-25] MEDS: cefTRIAXone 2 GM in Sodium Chloride 0.9% 100 ML IV SCH (17:31)
[2020-12-25] MEDS: Metoprolol Succinate 50 MG Tab.ER PO SCH (17:32)
[2020-12-25] MEDS: OLANZapine 5 MG Tab PO SCH (17:32)
[2020-12-25] MEDS: Lactulose Soln 10 GM/15 ML 30 ML UD Cup PO SCH (17:36)
[2020-12-25] MEDS ORDERED: Nystatin Topical Powder 15 GM Bottle TOP PRN (17:49)
[2020-12-25] MEDS: Sertraline 25 MG Tab PO SCH (20:39)
[2020-12-25] MEDS: Tamsulosin 0.4 MG Cap.ER PO SCH (20:40)
[2020-12-25] MEDS: Acetaminophen 325 MG Tab PO PRN (20:41)
[2020-12-25] MEDS: Melatonin 3 MG Tab PO SCH (20:42)
[2020-12-25] MEDS: traMADol 50 MG Tab PO PRN (20:42)
[2020-12-26] MEDS: traMADol 50 MG Tab PO PRN ×2 (02:02→17:24)
[2020-12-26] MEDS: Albuterol/Ipratropium 3.0-0.5 MG/3 ML Neb Soln INH SCH ×4 (03:02→20:46)
[2020-12-26] MEDS: Furosemide 40 MG/4 ML VIAL IVPUSH SCH ×2 (05:29→13:43)
[2020-12-26] MEDS: Insulin Lispro 100 UNIT/ML 10 ML Vial SUBCUT SCH ×4 (07:01→21:36)
[2020-12-26] MEDS: Gabapentin 300 MG Cap PO SCH ×3 (08:43→20:23)
[2020-12-26] MEDS: Aspirin 81 MG Tab.EC PO SCH (08:43)
[2020-12-26] MEDS: atorvaSTATin 20 MG Tab PO SCH (08:43)
--- NOTE | 2020-12-26 13:14 | PCM.PN ---
- General Info Date of Service: 12/26/20 Admission Dx/Problem (Free Text): Admission Diagnosis/Problem Admission Diagnosis/Problem Abdominal pain Subjective Update: continues to diurese well weight 328->314 denies cp denies sob Functional Status: Reports: Pain Controlled - Review of Systems General: Reports: No Symptoms Cardiovascular: Reports: No Symptoms Gastrointestinal: Reports: No Symptoms Neurological: Reports: No Symptoms Psychiatric: Reports: No Symptoms - Patient Data Vitals - Most Recent: Last Vital Signs Temp 98.2 F 12/26/20 11:09 Pulse 78 12/26/20 11:09 Resp 16 12/26/20 11:09 BP 147/72 H 12/26/20 11:09 Pulse Ox 94 L 12/26/20 11:09 Weight - Most Recent: 314 lb 14.4 oz I&O - Last 24 Hours: Intake & Output 12/25/20 12/26/20 12/26/20 22:59 06:59 14:59 Intake Total 520 300 Balance 520 300 Lab Results Last 24 Hours: Laboratory Results - last 24 hr 12/25/20 12/25/20 12/26/20 Range/Units 16:55 20:38 06:20 WBC 8.74 (4.23-9.07) K/mm3 RBC 5.73 (4.63-6.08) M/mm3 Hgb 13.8 (13.7-17.5) gm/dl Hct 50.6 (40.1-51.0) % MCV 88.3 (79.0-92.2) fl MCH 24.1 L (25.7-32.2) pg MCHC 27.3 L (32.2-35.5) g/dl RDW Std Deviation 55.5 H (35.1-43.9) fL Plt Count 203 (163-337) K/mm3 MPV 10.8 (9.4-12.3) fl Neut % (Auto) 73.6 H (34.0-67.9) % Lymph % (Auto) 11.3 L (21.8-53.1) % [place] % (Auto) 9.5 (5.3-12.2) % Eos % (Auto) 4.8 (0.8-7.0) Baso % (Auto) 0.6 (0.1-1.2) % Neut # (Auto) 6.43 H (1.78-5.38) K/mm3 Lymph # (Auto) 0.99 L (1.32-3.57) K/mm3 [place] # (Auto) 0.83 H (0.30-0.82) K/mm3 Eos # (Auto) 0.42 (0.04-0.54) K/mm3 Baso # (Auto) 0.05 (0.01-0.08) K/mm3 Manual Slide Review Abnormal smear Sodium (136-145) mEq/L Potassium (3.5-5.1) mEq/L Chloride (98-107) mEq/L Carbon Dioxide (21-32) mEq/L Anion Gap (5-15) BUN (7-18) mg/dL Creatinine (0.7-1.3) mg/dL Est Cr Clr Drug Dosing mL/min Estimated GFR (MDRD) (>60) mL/min BUN/Creatinine Ratio (14-18) Glucose (70-99) mg/dL POC Glucose 200 H 228 H (70-99) mg/dL Calcium (8.5-10.1) mg/dL Magnesium (1.8-2.4) mg/dL Total Bilirubin (0.2-1.0) mg/dL AST (15-37) U/L ALT (16-63) U/L Alkaline Phosphatase (46-116) U/L C-Reactive Protein (<1.0) mg/dL Total Protein (6.4-8.2) g/dl Albumin (3.4-5.0) g/dl Globulin gm/dL Albumin/Globulin Ratio (1-2) 12/26/20 12/26/20 12/26/20 Range/Units 06:20 06:52 11:06 WBC (4.23-9.07) K/mm3 RBC (4.63-6.08) M/mm3 Hgb (13.7-17.5) gm/dl Hct (40.1-51.0) % MCV (79.0-92.2) fl MCH (25.7-32.2) pg MCHC (32.2-35.5) g/dl RDW Std Deviation (35.1-43.9) fL Plt Count (163-337) K/mm3 MPV (9.4-12.3) fl Neut % (Auto) (34.0-67.9) % Lymph % (Auto) (21.8-53.1) % [place] % (Auto) (5.3-12.2) % Eos % (Auto) (0.8-7.0) Baso % (Auto) (0.1-1.2) % Neut # (Auto) (1.78-5.38) K/mm3 Lymph # (Auto) (1.32-3.57) K/mm3 [place] # (Auto) (0.30-0.82) K/mm3 Eos # (Auto) (0.04-0.54) K/mm3 Baso # (Auto) (0.01-0.08) K/mm3 Manual Slide Review Sodium 146 H (136-145) mEq/L Potassium 4.1 (3.5-5.1) mEq/L Chloride 103 (98-107) mEq/L Carbon Dioxide 39 H (21-32) mEq/L Anion Gap 8.1 (5-15) BUN 16 (7-18) mg/dL Creatinine 0.8 (0.7-1.3) mg/dL Est Cr Clr Drug Dosing 101.04 mL/min Estimated GFR (MDRD) > 60 (>60) mL/min BUN/Creatinine Ratio 20.0 H (14-18) Glucose 193 H (70-99) mg/dL POC Glucose 112 H 222 H (70-99) mg/dL Calcium 8.8 (8.5-10.1) mg/dL Magnesium 1.9 (1.8-2.4) mg/dL Total Bilirubin 0.5 (0.2-1.0) mg/dL AST 11 L (15-37) U/L ALT 22 (16-63) U/L Alkaline Phosphatase 111 (46-116) U/L C-Reactive Protein 5.3 H* (<1.0) mg/dL Total Protein 6.6 (6.4-8.2) g/dl Albumin 3.1 L (3.4-5.0) g/dl Globulin 3.5 gm/dL Albumin/Globulin Ratio 0.9 L (1-2) Med Orders - Current: Current Medications Acetaminophen (Acetaminophen 325 Mg Tab) 650 mg PO BID PRN PRN Reason: Pain Last Admin: 12/25/20 20:41 Dose: 650 mg Documented by: Albuterol/Ipratropium (Albuterol/Ipratropium 3.0-0.5 Mg/3 Ml Neb Soln) 3 ml INH Q6HRRT [facility] Last Admin: 12/26/20 08:30 Dose: 3 ml Documented by: Aspirin (Aspirin 81 Mg Tab.Ec) 81 mg PO DAILY [facility] Last Admin: 12/26/20 08:43 Dose: 81 mg Documented by: Atorvastatin Calcium (Atorvastatin 20 Mg Tab) 20 mg PO DAILY [facility] Last Admin: 12/26/20 08:43 Dose: 20 mg Documented by: Bisacodyl (Bisacodyl 10 Mg Supp) 10 mg RECTAL DAILY PRN PRN Reason: Constipation Furosemide (Furosemide 40 Mg/4 Ml Vial) 40 mg IVPUSH BIDDIURETIC [facility] Last Admin: 12/26/20 05:29 Dose: 40 mg Documented by: Gabapentin (Gabapentin 300 Mg Cap) 300 mg PO TID [facility] Last Admin: 12/26/20 08:43 Dose: 300 mg Documented by: Ceftriaxone Sodium 2 gm/ (Sodium Chloride) 100 mls @ 200 mls/hr IV Q24H [facility] Last Admin: 12/25/20 17:31 Dose: 200 mls/hr Documented by: Insulin Human Lispro (Insulin Lispro 100 Unit/Ml 10 Ml Vial) 0 unit SUBCUT QID ACANDBED [facility]; Protocol Last Admin: 12/26/20 11:26 Dose: 4 units Documented by: Lactulose (Lactulose Soln 10 Gm/15 Ml 30 Ml Ud Cup) 40 gm PO QPM [facility] Last Admin: 12/25/20 17:36 Dose: Not Given Documented by: Melatonin (Melatonin 3 Mg Tab) 3 mg PO BEDTIME [facility] Last Admin: 12/25/20 20:42 Dose: 3 mg Documented by: Metoprolol Succinate (Metoprolol Succinate 50 Mg Tab.Er) 50 mg PO QPM [facility] Last Admin: 12/25/20 17:32 Dose: 50 mg Documented by: Nystatin (Nystatin Topical Powder 15 Gm Bottle) 0 gm TOP QID PRN PRN Reason: Other Olanzapine (Olanzapine 5 Mg Tab) 20 mg PO QPM [facility] Last Admin: 12/25/20 17:32 Dose: 20 mg Documented by: Rivaroxaban (Rivaroxaban 10 Mg Tab) 20 mg PO QPM [facility] Last Admin: 12/25/20 17:31 Dose: 20 mg Documented by: Senna (Sennosides 8.6 Mg Tab) 17.2 mg PO BEDTIME PRN PRN Reason: Constipation Last Admin: 12/23/20 18:22 Dose: 17.2 mg Documented by: Sertraline HCl (Sertraline 25 Mg Tab) 75 mg PO BEDTIME [facility] Last Admin: 12/25/20 20:39 Dose: 75 mg Documented by: Tamsulosin HCl (Tamsulosin 0.4 Mg Cap.Er) 0.8 mg PO BEDTIME [facility] Last Admin: 12/25/20 20:40 Dose: 0.8 mg Documented by: Tramadol HCl (Tramadol 50 Mg Tab) 50 mg PO TID PRN PRN Reason: Pain Last Admin: 12/26/20 02:02 Dose: 50 mg Documented by: Discontinued Medications Furosemide (Furosemide 40 Mg Tab) 40 mg PO DAILY [facility] Furosemide (Furosemide 20 Mg Tab) 20 mg PO DAILY@1200 [facility] Furosemide (Furosemide 40 Mg/4 Ml Vial) 40 mg IVPUSH NOW ONE Stop: 12/23/20 16:16 Last Admin: 12/23/20 18:24 Dose: 40 mg Documented by: Clindamycin Phosphate 900 mg/ (Premix) 50 mls @ 100 mls/hr IV ONETIME ONE Stop: 12/23/20 11:17 Last Admin: 12/23/20 11:32 Dose: 100 mls/hr Documented by: Non-Formulary Medication (Acetaminophen) 500 mg PO QID [facility] Potassium Chloride (Potassium Chloride 20 Meq Tab.Er) 20 meq PO ONETIME ONE Stop: 12/25/20 13:00 Last Admin: 12/25/20 14:28 Dose: 20 meq Documented by: Sertraline HCl (Sertraline 50 Mg Tab) 50 mg PO BEDTIME [facility] - Exam General: Alert, Oriented HEENT: EOMI Neck: Supple Lungs: Decreased Breath Sounds Cardiovascular: Regular Rate, Regular Rhythm GI/Abdominal Exam: Soft, Non-Tender, No Distention Extremities: Normal Inspection Skin: Warm, Dry, Intact Neurological: No New Focal Deficit - Patient Data Lab Results Last 24 hrs: Laboratory Results - last 24 hr 12/25/20 12/25/20 12/26/20 Range/Units 16:55 20:38 06:20 WBC 8.74 (4.23-9.07) K/mm3 RBC 5.73 (4.63-6.08) M/mm3 Hgb 13.8 (13.7-17.5) gm/dl Hct 50.6 (40.1-51.0) % MCV 88.3 (79.0-92.2) fl MCH 24.1 L (25.7-32.2) pg MCHC 27.3 L (32.2-35.5) g/dl RDW Std Deviation 55.5 H (35.1-43.9) fL Plt Count 203 (163-337) K/mm3 MPV 10.8 (9.4-12.3) fl Neut % (Auto) 73.6 H (34.0-67.9) % Lymph % (Auto) 11.3 L (21.8-53.1) % [place] % (Auto) 9.5 (5.3-12.2) % Eos % (Auto) 4.8 (0.8-7.0) Baso % (Auto) 0.6 (0.1-1.2) % Neut # (Auto) 6.43 H (1.78-5.38) K/mm3 Lymph # (Auto) 0.99 L (1.32-3.57) K/mm3 [place] # (Auto) 0.83 H (0.30-0.82) K/mm3 Eos # (Auto) 0.42 (0.04-0.54) K/mm3 Baso # (Auto) 0.05 (0.01-0.08) K/mm3 Manual Slide Review Abnormal smear Sodium (136-145) mEq/L Potassium (3.5-5.1) mEq/L Chloride (98-107) mEq/L Carbon Dioxide (21-32) mEq/L Anion Gap (5-15) BUN (7-18) mg/dL Creatinine (0.7-1.3) mg/dL Est Cr Clr Drug Dosing mL/min Estimated GFR (MDRD) (>60) mL/min BUN/Creatinine Ratio (14-18) Glucose (70-99) mg/dL POC Glucose 200 H 228 H (70-99) mg/dL Calcium (8.5-10.1) mg/dL Magnesium (1.8-2.4) mg/dL Total Bilirubin (0.2-1.0) mg/dL AST (15-37) U/L ALT (16-63) U/L Alkaline Phosphatase (46-116) U/L C-Reactive Protein (<1.0) mg/dL Total Protein (6.4-8.2) g/dl Albumin (3.4-5.0) g/dl Globulin gm/dL Albumin/Globulin Ratio (1-2) 12/26/20 12/26/20 12/26/20 Range/Units 06:20 06:52 11:06 WBC (4.23-9.07) K/mm3 RBC (4.63-6.08) M/mm3 Hgb (13.7-17.5) gm/dl Hct (40.1-51.0) % MCV (79.0-92.2) fl MCH (25.7-32.2) pg MCHC (32.2-35.5) g/dl RDW Std Deviation (35.1-43.9) fL Plt Count (163-337) K/mm3 MPV (9.4-12.3) fl Neut % (Auto) (34.0-67.9) % Lymph % (Auto) (21.8-53.1) % [place] % (Auto) (5.3-12.2) % Eos % (Auto) (0.8-7.0) Baso % (Auto) (0.1-1.2) % Neut # (Auto) (1.78-5.38) K/mm3 Lymph # (Auto) (1.32-3.57) K/mm3 [place] # (Auto) (0.30-0.82) K/mm3 Eos # (Auto) (0.04-0.54) K/mm3 Baso # (Auto) (0.01-0.08) K/mm3 Manual Slide Review Sodium 146 H (136-145) mEq/L Potassium 4.1 (3.5-5.1) mEq/L Chloride 103 (98-107) mEq/L Carbon Dioxide 39 H (21-32) mEq/L Anion Gap 8.1 (5-15) BUN 16 (7-18) mg/dL Creatinine 0.8 (0.7-1.3) mg/dL Est Cr Clr Drug Dosing 101.04 mL/min Estimated GFR (MDRD) > 60 (>60) mL/min BUN/Creatinine Ratio 20.0 H (14-18) Glucose 193 H (70-99) mg/dL POC Glucose 112 H 222 H (70-99) mg/dL Calcium 8.8 (8.5-10.1) mg/dL Magnesium 1.9 (1.8-2.4) mg/dL Total Bilirubin 0.5 (0.2-1.0) mg/dL AST 11 L (15-37) U/L ALT 22 (16-63) U/L Alkaline Phosphatase 111 (46-116) U/L C-Reactive Protein 5.3 H* (<1.0) mg/dL Total Protein 6.6 (6.4-8.2) g/dl Albumin 3.1 L (3.4-5.0) g/dl Globulin 3.5 gm/dL Albumin/Globulin Ratio 0.9 L (1-2) Result Diagrams: 12/26/20 06:20 12/26/20 06:20 Sepsis Event Note - Focused Exam Vital Signs: Vital Signs Temp Pulse Resp BP Pulse Ox Pulse Ox 12/26/20 11:09 98.2 F 78 16 147/72 H 94 L 12/26/20 08:30 90 L 12/26/20 05:26 97.5 F 80 14 149/60 H 95 12/26/20 03:02 94 L - Problem List Review Problem List Initiated/Reviewed/Updated: Yes - My Orders Last 24 Hours: My Active Orders 12/25/20 17:49 Nystatin [Nystop] 0 gm TOP QID PRN - Assessment Assessment:: Admittsion date: 12/23/2020: * 65-year-old male who presents to ED via [facility] with abdominal p ain and chills which developed last night * History of A. fib, VTE, CAD, cardiomyopathy, heart failure, HLD, hypertension, MT, PVD, stent placement, occlusion of the left carotid artery, COPD, sleep ap emigdio, hypoxia, GERD, chronic renal insufficiency, BPH, chronic back pain, gout, right below the knee amputation, CVA, migraines, spinal stenosis, postlaminectomy syndrome, depression, insomnia, opioid dependence, psychosis, chronic pain syndrome, type II DM, hypothyroidism, obesity, hypokalemia, hypo magnesemia * Resides at [facility] * Reports diffuse redness and tenderness with abdominal wall below his umbilicus and right quadrant * Reports dyspnea with minimal exertion and needing oxygen recently * Denies sputum production but does report an occasional nonproductive cough * Chronic edema to left lower extremity * Denies any nausea or vomiting * Patient does report having spilled hot coffee on his abdomen about a week ago but he was unable to to do this due to his body habitus. He does not think that it was blistered. * 12-lead EKG is obtained showing a sinus rhythm at 73 bpm with borderline first-degree AV block and left atrial hypertrophy. There is initial poor R wave progression and decreased voltage in the limb leads. T wave inversion in V1 through V4 and flattening of T wave in V5 is noted in a minimally prolonged QT segment is also observed. * Labs are obtained: * WBC8.71. * Hemoglobin 13.9. * Hematocrit 50.3. * Platelet 191. * Neutrophils 77%. There is no bandemia. * INR 1.27. * aPTT 31.4. * Sodium 144. * Potassium 4.0. * Chloride 102. * Carbon dioxide 40. * Anion gap 6.0. * BUN 21. Creatinine 1.0. GFR greater than 60. * Glucose 222. * Calcium 8.6. * Magnesium 1.9. * Total bilirubin 0.6. * AST 15, ALT 19, alkaline phosphatase 117. * Troponin is less than 0.017. * CRP 6.3. * Protein i6.5. * Albumin 3.3. * Lipase 43. * Blood ethyl alcohol 0.00. * ESR 2. * Hemoglobin A1c 8.8%. * proBNP 908. * UA is obtained and is concentrated but negative. * Blood cultures were obtained and are pending * Chest x-ray is obtained showing findings suspicious for minimal CHF. * CT of the abdomen and pelvis is obtained showing: * 1. Increased density within the subcutaneous fat as well as skin thickening mostly anteriorly. This presumably represents edema and is difficult to exclude cellulitis. * 2. Increased density within the left lung base. Difficult to exclude pneumonia if patient has infectious symptoms. * 3. Increased density within the gallbladder presumably representing gallstones. * 4. Other findings as described above which are nonacute. * He started on clindamycin 900 mg IV. * There are no concerning signs for sepsis. * Patient admitted to the medical floor for management of his cellulitis and mild CHF exacerbation. 12/25/2020 65-year-old male admitted for cellulitis of his abdomen and mild CHF exacerbation. Patient was switched to Rocephin 2 g daily. MRSA screen was negative. Labs today show a mild leukocytosis at 10.03. Hemoglobin is 13.8. Platelet 182,000. Neutrophils are elevated at 76.8. Sodium is 14.3. Potassium 3.8. Chloride 99. Carbon dioxide 37. Anion gap 10.8. BUN is 20. Creatinine 1.0. GFR is greater than 60. Glucose has been 157-208. Magnesium is 1.9. CRP is down to 4.5. He is on 40 mg twice daily diuretic dosing and has been having some urine output. He reports he feels better and less short of breath. He reports his abdominal pain is better and feels less full. Blood cultures are still pending. We will continue current treatment plan pending future labs and blood culture results. 12/26/20 Continue IV lasix; appears volume overload on exam continue ceftriaxone potassium replacement check electrolytes tomorrow may consider repeat Echo on sunday - Plan Plan:: Cellulitis, abdominal wall Resides in [facility] facility * Switched from clindamycin to Rocephin 2gm daily after discussion with Dr. Polk * MRSA screen negative * Daily labs * Monitor for signs of drainage * Monitor for signs of abscess (none seen on CT of abdomen) * Await blood cultures CHF exacerbation, mild Cardiomyopathy Edema of lower extremity * 40mg IVP Lasix BID diuretic; continues to diurese well; weight down 328->314; will order echo for sunday * Hold home PO Lasix * Monitor output * Telemetry * Review prior echocardiograms * 2gm sodium restriction * 1.5L fluid restriction * O2 as needed to keep saturations >88% * Monitor daily labs History of CVA (cerebrovascular accident) History of MT (myocardial infarction) History of deep vein thrombosis Paroxysmal atrial fibrillation Stented coronary artery Carotid occlusion, left Coronary artery disease * Continue home Xarelto * Continue home statin * Telemetry * No acute concerns History of substance abuse Opioid dependence Post laminectomy syndrome Chronic pain syndrome Chronic neck pain Right below-knee amputee Chronic back pain Chronic migraine * Pain medications as ordered * PT/OT * Up to chair * No acute concerns Gout * No acute concerns Depression * No acute concerns * Home medications as ordered Insomnia * No acute concerns * Continue home melatonin Obesity * No acute concerns * [employer] consultation History of hypokalemia Hypomagnesemia * Monitor labs * Supplement as needed Benign prostatic hyperplasia * No acute concerns * Continue home medications CKD (chronic kidney disease) * No acute concerns * Monitor output * Monitor labs * Hold home Losartan for now COPD (chronic obstructive pulmonary disease) Obstructive sleep apnea * RT consultation * Home respiratory meds as ordered Diabetes mellitus type 2 in obese * QID AC and bedtime glucose checks * Medium intensity sliding scale insulin * Diabetic diet GERD (gastroesophageal reflux disease) * No acute concerns * Monitor Code status: Full code PCP: Dr. Lloyd DVT prophylaxis: Home Xarelto Social: Patient resides at [facility] Disposition: Patient admitted for management of abdominal wall cellulitis and CHF exacerbation. Length of stay likely 2 to 3 days.
[2020-12-26] MEDS: cefTRIAXone 2 GM in Sodium Chloride 0.9% 100 ML IV SCH (17:02)
[2020-12-26] MEDS: Rivaroxaban 10 MG Tab PO SCH (17:02)
[2020-12-26] MEDS: OLANZapine 5 MG Tab PO SCH (17:03)
[2020-12-26] MEDS: Lactulose Soln 10 GM/15 ML 30 ML UD Cup PO SCH (17:05)
[2020-12-26] MEDS: Metoprolol Succinate 50 MG Tab.ER PO SCH (17:07)
[2020-12-26] MEDS: Acetaminophen 325 MG Tab PO PRN (17:25)
[2020-12-26] MEDS: Melatonin 3 MG Tab PO SCH (20:21)
[2020-12-26] MEDS: Sertraline 25 MG Tab PO SCH (20:22)
[2020-12-26] MEDS: Tamsulosin 0.4 MG Cap.ER PO SCH (20:22)
[2020-12-27] MEDS: traMADol 50 MG Tab PO PRN ×2 (02:28→21:28)
[2020-12-27] MEDS: Albuterol/Ipratropium 3.0-0.5 MG/3 ML Neb Soln INH SCH ×4 (02:33→20:56)
[2020-12-27] MEDS: Furosemide 40 MG/4 ML VIAL IVPUSH SCH ×2 (06:11→14:06)
[2020-12-27] MEDS: Insulin Lispro 100 UNIT/ML 10 ML Vial SUBCUT SCH ×4 (06:18→21:29)
--- NOTE | 2020-12-27 07:40 | PCM.PN ---
<Ever Magana - Last Filed: 12/27/20 14:25> - General Info Date of Service: 12/27/20 Admission Dx/Problem (Free Text): Admission Diagnosis/Problem Admission Diagnosis/Problem Abdominal pain Functional Status: Reports: Pain Controlled, Tolerating Diet, Ambulating, Urinating, Incentive Spirometry. Denies: New Symptoms - Review of Systems General: Reports: Weakness, Fatigue, Malaise. Denies: Fever, Chills HEENT: Reports: No Symptoms. Denies: Headaches, Sore Throat Pulmonary: Reports: Shortness of Breath. Denies: Cough, Sputum, Wheezing Cardiovascular: Reports: Dyspnea on Exertion, Edema. Denies: Chest Pain, Palpitations Gastrointestinal: Reports: No Symptoms. Denies: Abdominal Pain, Constipation, Diarrhea, Vomiting Genitourinary: Reports: No Symptoms. Denies: Pain Musculoskeletal: Reports: No Symptoms Skin: Reports: No Symptoms. Denies: Cyanosis Neurological: Reports: Difficulty Walking, Weakness, Gait Disturbance. Denies: Confusion, Dizziness, Headache, Numbness, Pre-Existing Deficit, Seizure, Syncope, Tingling Psychiatric: Reports: No Symptoms - Patient Data Vitals - Most Recent: Last Vital Signs Temp 98.1 F 12/27/20 02:31 Pulse 79 12/27/20 02:31 Resp 13 12/27/20 02:31 BP 115/53 L 12/27/20 02:31 Pulse Ox 90 L 12/27/20 05:46 Weight - Most Recent: 311 lb 12.8 oz I&O - Last 24 Hours: Intake & Output 12/26/20 12/27/20 12/27/20 22:59 06:59 14:59 Intake Total 520 300 Output Total 250 800 Balance 270 -500 Lab Results Last 24 Hours: Laboratory Results - last 24 hr 12/26/20 12/26/20 12/26/20 Range/Units 11:06 16:08 21:34 WBC (4.23-9.07) K/mm3 RBC (4.63-6.08) M/mm3 Hgb (13.7-17.5) gm/dl Hct (40.1-51.0) % MCV (79.0-92.2) fl MCH (25.7-32.2) pg MCHC (32.2-35.5) g/dl RDW Std Deviation (35.1-43.9) fL Plt Count (163-337) K/mm3 MPV (9.4-12.3) fl Neut % (Auto) (34.0-67.9) % Lymph % (Auto) (21.8-53.1) % [place] % (Auto) (5.3-12.2) % Eos % (Auto) (0.8-7.0) Baso % (Auto) (0.1-1.2) % Neut # (Auto) (1.78-5.38) K/mm3 Lymph # (Auto) (1.32-3.57) K/mm3 [place] # (Auto) (0.30-0.82) K/mm3 Eos # (Auto) (0.04-0.54) K/mm3 Baso # (Auto) (0.01-0.08) K/mm3 Manual Slide Review Sodium (136-145) mEq/L Potassium (3.5-5.1) mEq/L Chloride (98-107) mEq/L Carbon Dioxide (21-32) mEq/L Anion Gap (5-15) BUN (7-18) mg/dL Creatinine (0.7-1.3) mg/dL Est Cr Clr Drug Dosing mL/min Estimated GFR (MDRD) (>60) mL/min BUN/Creatinine Ratio (14-18) Glucose (70-99) mg/dL POC Glucose 222 H 247 H 247 H (70-99) mg/dL Calcium (8.5-10.1) mg/dL Magnesium (1.8-2.4) mg/dL Total Bilirubin (0.2-1.0) mg/dL AST (15-37) U/L ALT (16-63) U/L Alkaline Phosphatase (46-116) U/L C-Reactive Protein (<1.0) mg/dL Total Protein (6.4-8.2) g/dl Albumin (3.4-5.0) g/dl Globulin gm/dL Albumin/Globulin Ratio (1-2) 12/27/20 12/27/20 12/27/20 Range/Units 05:55 05:55 06:18 WBC 10.01 H (4.23-9.07) K/mm3 RBC 5.76 (4.63-6.08) M/mm3 Hgb 13.9 (13.7-17.5) gm/dl Hct 50.8 (40.1-51.0) % MCV 88.2 (79.0-92.2) fl MCH 24.1 L (25.7-32.2) pg MCHC 27.4 L (32.2-35.5) g/dl RDW Std Deviation 54.7 H (35.1-43.9) fL Plt Count 205 (163-337) K/mm3 MPV 11.0 (9.4-12.3) fl Neut % (Auto) 77.5 H (34.0-67.9) % Lymph % (Auto) 10.0 L (21.8-53.1) % [place] % (Auto) 8.2 (5.3-12.2) % Eos % (Auto) 3.6 (0.8-7.0) Baso % (Auto) 0.4 (0.1-1.2) % Neut # (Auto) 7.76 H (1.78-5.38) K/mm3 Lymph # (Auto) 1.00 L (1.32-3.57) K/mm3 [place] # (Auto) 0.82 (0.30-0.82) K/mm3 Eos # (Auto) 0.36 (0.04-0.54) K/mm3 Baso # (Auto) 0.04 (0.01-0.08) K/mm3 Manual Slide Review Abnormal smear Sodium 145 (136-145) mEq/L Potassium 4.2 (3.5-5.1) mEq/L Chloride 103 (98-107) mEq/L Carbon Dioxide 41 H* (21-32) mEq/L Anion Gap 5.2 (5-15) BUN 21 H (7-18) mg/dL Creatinine 0.9 (0.7-1.3) mg/dL Est Cr Clr Drug Dosing 89.81 mL/min Estimated GFR (MDRD) > 60 (>60) mL/min BUN/Creatinine Ratio 23.3 H (14-18) Glucose 209 H (70-99) mg/dL POC Glucose 118 H (70-99) mg/dL Calcium 8.8 (8.5-10.1) mg/dL Magnesium 1.9 (1.8-2.4) mg/dL Total Bilirubin 0.4 (0.2-1.0) mg/dL AST 15 (15-37) U/L ALT 17 (16-63) U/L Alkaline Phosphatase 113 (46-116) U/L C-Reactive Protein 4.9 H* (<1.0) mg/dL Total Protein 6.7 (6.4-8.2) g/dl Albumin 3.1 L (3.4-5.0) g/dl Globulin 3.6 gm/dL Albumin/Globulin Ratio 0.9 L (1-2) Med Orders - Current: Current Medications Acetaminophen (Acetaminophen 325 Mg Tab) 650 mg PO BID PRN PRN Reason: Pain Last Admin: 12/26/20 17:25 Dose: 650 mg Documented by: Albuterol/Ipratropium (Albuterol/Ipratropium 3.0-0.5 Mg/3 Ml Neb Soln) 3 ml INH Q6HRRT PENDING SALE TO [facility] Last Admin: 12/27/20 02:33 Dose: 3 ml Documented by: Aspirin (Aspirin 81 Mg Tab.Ec) 81 mg PO DAILY PENDING SALE TO [facility] Last Admin: 12/26/20 08:43 Dose: 81 mg Documented by: Atorvastatin Calcium (Atorvastatin 20 Mg Tab) 20 mg PO DAILY PENDING SALE TO [facility] Last Admin: 12/26/20 08:43 Dose: 20 mg Documented by: Bisacodyl (Bisacodyl 10 Mg Supp) 10 mg RECTAL DAILY PRN PRN Reason: Constipation Furosemide (Furosemide 40 Mg/4 Ml Vial) 40 mg IVPUSH BIDDIURETIC PENDING SALE TO [facility] Last Admin: 12/27/20 06:11 Dose: 40 mg Documented by: Gabapentin (Gabapentin 300 Mg Cap) 300 mg PO TID PENDING SALE TO [facility] Last Admin: 12/26/20 20:23 Dose: 300 mg Documented by: Ceftriaxone Sodium 2 gm/ (Sodium Chloride) 100 mls @ 200 mls/hr IV Q24H PENDING SALE TO [facility] Last Admin: 12/26/20 17:02 Dose: 200 mls/hr Documented by: Insulin Human Lispro (Insulin Lispro 100 Unit/Ml 10 Ml Vial) 0 unit SUBCUT QIDACANDBED PENDING SALE TO [facility]; Protocol Last Admin: 12/27/20 06:18 Dose: Not Given Documented by: Lactulose (Lactulose Soln 10 Gm/15 Ml 30 Ml Ud Cup) 40 gm PO DAILY PENDING SALE TO [facility] Melatonin (Melatonin 3 Mg Tab) 3 mg PO BEDTIME PENDING SALE TO [facility] Last Admin: 12/26/20 20:21 Dose: 3 mg Documented by: Metoprolol Succinate (Metoprolol Succinate 50 Mg Tab.Er) 50 mg PO QPM PENDING SALE TO [facility] Last Admin: 12/26/20 17:07 Dose: 50 mg Documented by: Nystatin (Nystatin Topical Powder 15 Gm Bottle) 0 gm TOP QID PRN PRN Reason: Other Olanzapine (Olanzapine 5 Mg Tab) 20 mg PO QPM PENDING SALE TO [facility] Last Admin: 12/26/20 17:03 Dose: 20 mg Documented by: Rivaroxaban (Rivaroxaban 10 Mg Tab) 20 mg PO QPM [facility] Last Admin: 12/26/20 17:02 Dose: 20 mg Documented by: Senna (Sennosides 8.6 Mg Tab) 17.2 mg PO BEDTIME PRN PRN Reason: Constipation Last Admin: 12/23/20 18:22 Dose: 17.2 mg Documented by: Sertraline HCl (Sertraline 25 Mg Tab) 75 mg PO BEDTIME PENDING SALE TO [facility] Last Admin: 12/26/20 20:22 Dose: 75 mg Documented by: Tamsulosin HCl (Tamsulosin 0.4 Mg Cap.Er) 0.8 mg PO BEDTIME K[facility] Last Admin: 12/26/20 20:22 Dose: 0.8 mg Documented by: Tramadol HCl (Tramadol 50 Mg Tab) 50 mg PO TID PRN PRN Reason: Pain Last Admin: 12/27/20 02:28 Dose: 50 mg Documented by: Discontinued Medications Furosemide (Furosemide 40 Mg Tab) 40 mg PO DAILY PENDING SALE TO [facility] Furosemide (Furosemide 20 Mg Tab) 20 mg PO DAILY@1200 [facility] Furosemide (Furosemide 40 Mg/4 Ml Vial) 40 mg IVPUSH NOW ONE Stop: 12/23/20 16:16 Last Admin: 12/23/20 18:24 Dose: 40 mg Documented by: Clindamycin Phosphate 900 mg/ (Premix) 50 mls @ 100 mls/hr IV ONETIME ONE Stop: 12/23/20 11:17 Last Admin: 12/23/20 11:32 Dose: 100 mls/hr Documented by: Lactulose (Lactulose Soln 10 Gm/15 Ml 30 Ml Ud Cup) 40 gm PO QPM PENDING SALE TO [facility] Last Admin: 12/26/20 17:05 Dose: 40 gm Documented by: Non-Formulary Medication (Acetaminophen) 500 mg PO QID PENDING SALE TO [facility] Potassium Chloride (Potassium Chloride 20 Meq Tab.Er) 20 meq PO ONETIME ONE Stop: 12/25/20 13:00 Last Admin: 12/25/20 14:28 Dose: 20 meq Documented by: Sertraline HCl (Sertraline 50 Mg Tab) 50 mg PO BEDTIME KAREEM - Exam Quality Assessment: Supplemental Oxygen (3L), DVT Prophylaxis. No: Urine Catheter General: Alert (moslty), Oriented, Cooperative, Sedated (somewhat ) HEENT: Pupils Equal, Pupils Reactive, Mucous Membr. Moist/[place] Neck: Supple, Trachea Midline Lungs: Normal Respiratory Effort, Decreased Breath Sounds. No: Crackles, Rhonchi, Wheezing Cardiovascular: Regular Rate, Regular Rhythm GI/Abdominal Exam: Normal Bowel Sounds, Soft, Non-Tender, No Distention (Male) Exam: Deferred Back Exam: Normal Inspection, Full Range of Motion Extremities: Normal Inspection, Normal Range of Motion, Non-Tender, Normal Capillary Refill, Pedal Edema Skin: Warm, Dry, Intact Neurological: No New Focal Deficit Psy/Mental Status: Alert (mostly ), Normal Affect, Normal Mood - Patient Data Lab Results Last 24 hrs: Laboratory Results - last 24 hr 12/26/20 12/26/20 12/26/20 Range/Units 11:06 16:08 21:34 WBC (4.23-9.07) K/mm3 RBC (4.63-6.08) M/mm3 Hgb (13.7-17.5) gm/dl Hct (40.1-51.0) % MCV (79.0-92.2) fl MCH (25.7-32.2) pg MCHC (32.2-35.5) g/dl RDW Std Deviation (35.1-43.9) fL Plt Count (163-337) K/mm3 MPV (9.4-12.3) fl Neut % (Auto) (34.0-67.9) % Lymph % (Auto) (21.8-53.1) % [place] % (Auto) (5.3-12.2) % Eos % (Auto) (0.8-7.0) Baso % (Auto) (0.1-1.2) % Neut # (Auto) (1.78-5.38) K/mm3 Lymph # (Auto) (1.32-3.57) K/mm3 [place] # (Auto) (0.30-0.82) K/mm3 Eos # (Auto) (0.04-0.54) K/mm3 Baso # (Auto) (0.01-0.08) K/mm3 Manual Slide Review Sodium (136-145) mEq/L Potassium (3.5-5.1) mEq/L Chloride (98-107) mEq/L Carbon Dioxide (21-32) mEq/L Anion Gap (5-15) BUN (7-18) mg/dL Creatinine (0.7-1.3) mg/dL Est Cr Clr Drug Dosing mL/min Estimated GFR (MDRD) (>60) mL/min BUN/Creatinine Ratio (14-18) Glucose (70-99) mg/dL POC Glucose 222 H 247 H 247 H (70-99) mg/dL Calcium (8.5-10.1) mg/dL Magnesium (1.8-2.4) mg/dL Total Bilirubin (0.2-1.0) mg/dL AST (15-37) U/L ALT (16-63) U/L Alkaline Phosphatase (46-116) U/L C-Reactive Protein (<1.0) mg/dL Total Protein (6.4-8.2) g/dl Albumin (3.4-5.0) g/dl Globulin gm/dL Albumin/Globulin Ratio (1-2) 12/27/20 12/27/20 12/27/20 Range/Units 05:55 05:55 06:18 WBC 10.01 H (4.23-9.07) K/mm3 RBC 5.76 (4.63-6.08) M/mm3 Hgb 13.9 (13.7-17.5) gm/dl Hct 50.8 (40.1-51.0) % MCV 88.2 (79.0-92.2) fl MCH 24.1 L (25.7-32.2) pg MCHC 27.4 L (32.2-35.5) g/dl RDW Std Deviation 54.7 H (35.1-43.9) fL Plt Count 205 (163-337) K/mm3 MPV 11.0 (9.4-12.3) fl Neut % (Auto) 77.5 H (34.0-67.9) % Lymph % (Auto) 10.0 L (21.8-53.1) % [place] % (Auto) 8.2 (5.3-12.2) % Eos % (Auto) 3.6 (0.8-7.0) Baso % (Auto) 0.4 (0.1-1.2) % Neut # (Auto) 7.76 H (1.78-5.38) K/mm3 Lymph # (Auto) 1.00 L (1.32-3.57) K/mm3 [place] # (Auto) 0.82 (0.30-0.82) K/mm3 Eos # (Auto) 0.36 (0.04-0.54) K/mm3 Baso # (Auto) 0.04 (0.01-0.08) K/mm3 Manual Slide Review Abnormal smear Sodium 145 (136-145) mEq/L Potassium 4.2 (3.5-5.1) mEq/L Chloride 103 (98-107) mEq/L Carbon Dioxide 41 H* (21-32) mEq/L Anion Gap 5.2 (5-15) BUN 21 H (7-18) mg/dL Creatinine 0.9 (0.7-1.3) mg/dL Est Cr Clr Drug Dosing 89.81 mL/min Estimated GFR (MDRD) > 60 (>60) mL/min BUN/Creatinine Ratio 23.3 H (14-18) Glucose 209 H (70-99) mg/dL POC Glucose 118 H (70-99) mg/dL Calcium 8.8 (8.5-10.1) mg/dL Magnesium 1.9 (1.8-2.4) mg/dL Total Bilirubin 0.4 (0.2-1.0) mg/dL AST 15 (15-37) U/L ALT 17 (16-63) U/L Alkaline Phosphatase 113 (46-116) U/L C-Reactive Protein 4.9 H* (<1.0) mg/dL Total Protein 6.7 (6.4-8.2) g/dl Albumin 3.1 L (3.4-5.0) g/dl Globulin 3.6 gm/dL Albumin/Globulin Ratio 0.9 L (1-2) Result Diagrams: 12/27/20 05:55 12/27/20 05:55 Sepsis Event Note - Focused Exam Vital Signs: Vital Signs Temp Pulse Resp BP Pulse Ox Pulse Ox 12/27/20 05:46 90 L 12/27/20 02:34 96 12/27/20 02:31 98.1 F 79 13 115/53 L 92 L 12/26/20 20:46 94 L 12/26/20 20:18 98.1 F 69 13 140/82 93 L - Problem List & Annotations (1) CHF exacerbation SNOMED Code(s): 105738281, 35129397567086 Code(s): I50.9 - HEART FAILURE, UNSPECIFIED Status: Acute Priority: Medium Current Visit: Yes Qualifiers: Heart failure type: unspecified Qualified Code(s): I50.9 - Heart failure, unspecified (2) Cardiomyopathy SNOMED Code(s): 34180107 Code(s): I42.9 - CARDIOMYOPATHY, UNSPECIFIED Status: Chronic Priority: Medium Current Visit: Yes Qualifiers: Cardiomyopathy type: unspecified Qualified Code(s): I42.9 - Cardiomyopathy, unspecified (3) Chronic neck pain SNOMED Code(s): 4638898885771 Code(s): M54.2 - CERVICALGIA; G89.29 - OTHER CHRONIC PAIN Status: Chronic Priority: Low Current Visit: No (4) Gout SNOMED Code(s): 44219040 Code(s): M10.9 - GOUT, UNSPECIFIED Status: Chronic Priority: Low Current Visit: No Qualifiers: Gout site: unspecified site Gout etiology: unspecified cause Chronicity: chronic Presence of tophus: without tophus Qualified Code(s): M1A.9XX0 - Chronic gout, unspecified, without tophus (tophi) (5) Right below-knee amputee SNOMED Code(s): 843729494, 377555105, 623379803 Code(s): Z89.511 - ACQUIRED ABSENCE OF RIGHT LEG BELOW KNEE Status: Chronic Priority: Medium Current Visit: Yes (6) Depression SNOMED Code(s): 09258251 Code(s): F32.9 - MAJOR DEPRESSIVE DISORDER, SINGLE EPISODE, UNSPECIFIED Status: Chronic Priority: Low Current Visit: No Qualifiers: Depression Type: other depression Qualified Code(s): F32.89 - Other specified depressive episodes (7) Insomnia SNOMED Code(s): 350428957 Code(s): G47.00 - INSOMNIA, UNSPECIFIED Status: Chronic Priority: Low Current Visit: No Qualifiers: Insomnia type: unspecified Qualified Code(s): G47.00 - Insomnia, unspecified (8) History of substance abuse SNOMED Code(s): 973528502 Code(s): F19.11 - OTHER PSYCHOACTIVE SUBSTANCE ABUSE, IN REMISSION Status: Chronic Priority: Low Current Visit: No (9) Opioid dependence SNOMED Code(s): 61856860 Code(s): F11.20 - OPIOID DEPENDENCE, UNCOMPLICATED Status: Chronic Priority: Medium Current Visit: Yes Qualifiers: Substance use status: with unspecified opioid-induced disorder Qualified Co de(s): F11.29 - Opioid dependence with unspecified opioid-induced disorder (10) Post laminectomy syndrome SNOMED Code(s): 21263999 Code(s): M96.1 - POSTLAMINECTOMY SYNDROME, NOT ELSEWHERE CLASSIFIED Status: Chronic Priority: Low Current Visit: No (11) Chronic pain syndrome SNOMED Code(s): 866019089 Code(s): G89.4 - CHRONIC PAIN SYNDROME Status: Chronic Priority: Low Current Visit: No (12) Obesity SNOMED Code(s): 289451558, 288247753 Code(s): E66.9 - OBESITY, UNSPECIFIED Status: Chronic Priority: Low Current Visit: Yes Qualifiers: Obesity type: unspecified obesity type Obesity classification: adult class 3 (BMI >= 40) Serious obesity comorbidity presence: with serious comorbidity Body mass index: BMI 40.0-44.9 Qualified Code(s): E66.01 - Morbid (severe) obesity due to excess calories; Z68.41 - Body mass index [BMI]40.0-44.9, adult (13) History of hypokalemia SNOMED Code(s): 508829315 Code(s): Z86.39 - PERSONAL HISTORY OF ENDO, NUTRITIONAL AND METABOLIC DISEASE Status: Chronic Priority: Low Current Visit: No (14) Cellulitis, abdominal wall SNOMED Code(s): 00879466 Code(s): L03.311 - CELLULITIS OF ABDOMINAL WALL Status: Acute Priority: High Current Visit: Yes (15) Hypomagnesemia SNOMED Code(s): 729941128 Code(s): E83.42 - HYPOMAGNESEMIA Status: Acute Priority: Medium Current Visit: No Onset Date: 07/21/15 Annotation/Comment:: - Replete prior to d/c (16) Benign prostatic hyperplasia SNOMED Code(s): 973176906 Code(s): N40.0 - BENIGN PROSTATIC HYPERPLASIA WITHOUT LOWER URINRY TRACT SYMP Status: Chronic Priority: Low Current Visit: No Qualifiers: Lower urinary tract symptom presence: unspecified whether lower urinary tract symptoms present Qualified Code(s): N40.0 - Benign prostatic hyperplasia without lower urinary tract symptoms (17) CKD (chronic kidney disease) SNOMED Code(s): 951115429 Code(s): N18.9 - CHRONIC KIDNEY DISEASE, UNSPECIFIED Status: Chronic Priority: Medium Current Visit: No Qualifiers: Chronic kidney disease stage: unspecified stage Qualified Code(s): N18.9 - Chronic kidney disease, unspecified (18) COPD (chronic obstructive pulmonary disease) SNOMED Code(s): 81245943 Code(s): J44.9 - CHRONIC OBSTRUCTIVE PULMONARY DISEASE, UNSPECIFIED Status: Chronic Priority: Medium Current Visit: No Qualifiers: COPD type: unspecified COPD Qualified Code(s): J44.9 - Chronic obstructive pulmonary disease, unspecified (19) Carotid occlusion, left SNOMED Code(s): 019651743142147 Code(s): I65.22 - OCCLUSION AND STENOSIS OF LEFT CAROTID ARTERY Status: Chronic Priority: Low Current Visit: No (20) Chronic back pain SNOMED Code(s): 349880700 Code(s): M54.9 - DORSALGIA, UNSPECIFIED; G89.29 - OTHER CHRONIC PAIN Status: Chronic Priority: Low Current Visit: No Qualifiers: Back pain location: back pain in unspecified location Back pain laterality: unspecified Qualified Code(s): M54.9 - Dorsalgia, unspecified; G89.29 - Other chronic pain (21) Chronic migraine SNOMED Code(s): 269499417 Code(s): G43.709 - CHRONIC MIGRAINE W/O AURA, NOT INTRACTABLE, W/O STAT MIGR Status: Chronic Priority: Low Current Visit: No (22) Coronary artery disease SNOMED Code(s): 50677501 Code(s): I25.10 - ATHSCL HEART DISEASE OF [place] CORONARY ARTERY W/O ANG PCTRS Status: Chronic Priority: Low Current Visit: No Qualifiers: Coronary Disease-Associated Artery/Lesion type: unspecified vessel or lesion type [place] vs. transplanted heart: unspecified whether tribal or transplanted heart Associated angina: angina presence unspecified (23) Diabetes mellitus type 2 in obese SNOMED Code(s): 96273647 Code(s): E11.9 - TYPE 2 DIABETES MELLITUS WITHOUT COMPLICATIONS; E66.9 - OBESITY, UNSPECIFIED Status: Chronic Priority: Medium Current Visit: No (24) Edema of lower extremity SNOMED Code(s): 953913016 Code(s): R60.0 - LOCALIZED EDEMA Status: Chronic Priority: High Current Visit: Yes (25) GERD (gastroesophageal reflux disease) SNOMED Code(s): 874309495 Code(s): K21.9 - GASTRO-ESOPHAGEAL REFLUX DISEASE WITHOUT ESOPHAGITIS Status: Chronic Priority: Low Current Visit: No Qualifiers: Esophagitis presence: esophagitis presence not specified Qualified Code(s): K21.9 - Gastro-esophageal reflux disease without esophagitis (26) History of CVA (cerebrovascular accident) SNOMED Code(s): 976808761 Code(s): Z86.73 - PRSNL HX OF TIA (TIA), AND CEREB INFRC W/O RESID DEFICITS Status: Chronic Priority: Low Current Visit: No (27) History of [place] (myocardial infarction) SNOMED Code(s): 924544706 Code(s): I25.2 - OLD MYOCARDIAL INFARCTION Status: Chronic Priority: Low Current Visit: No (28) History of deep vein thrombosis SNOMED Code(s): 138815878 Code(s): Z86.718 - PERSONAL HISTORY OF OTHER VENOUS THROMBOSIS AND EMBOLISM Status: Chronic Priority: Low Current Visit: No (29) Obstructive sleep apnea SNOMED Code(s): 50497924 Code(s): G47.33 - OBSTRUCTIVE SLEEP APNEA (ADULT) (PEDIATRIC) Status: Chronic Priority: Medium Current Visit: No (30) Paroxysmal atrial fibrillation SNOMED Code(s): 379438259 Code(s): I48.0 - PAROXYSMAL ATRIAL FIBRILLATION Status: Chronic Priority: Medium Current Visit: No (31) Stented coronary artery Status: Chronic Priority: Low Current Visit: No (32) Resides in [facility] facility SNOMED Code(s): 779169358 Code(s): Z78.9 - OTHER SPECIFIED HEALTH STATUS Status: Chronic Priority: Low Current Visit: Yes (33) Acute on chronic respiratory acidosis SNOMED Code(s): 27868510, 82044159 Code(s): E87.2 - ACIDOSIS Status: Acute Priority: High Current Visit: Yes (34) History of sleep apnea SNOMED Code(s): 198142495 Code(s): Z86.69 - PERSONAL HISTORY OF DIS OF THE NERVOUS SYS AND SENSE ORGANS Status: Chronic Priority: High Current Visit: Yes (35) Noncompliance SNOMED Code(s): 4897533 Code(s): Z91.19 - PATIENT'S NONCOMPLIANCE W OTH MEDICAL TREATMENT AND REGIMEN Status: Chronic Priority: High Current Visit: Yes (36) Hypercapnia SNOMED Code(s): 45298784 Code(s): R06.89 - OTHER ABNORMALITIES OF BREATHING Status: Acute Priority: High Current Visit: Yes - Problem List Review Problem List Initiated/Reviewed/Updated: Yes - My Orders Last 24 Hours: My Active Orders 12/27/20 07:00 Echo Comp wo Cont [US] Routine 12/27/20 09:00 Lactulose [Cephulac] 40 gm PO DAILY - Assessment Assessment:: Admittsion date: 12/23/2020: * 65-year-old male who presents to ED via [facility] with abdominal pain and chills which developed last night * History of A. fib, VTE, CAD, cardiomyopathy, heart failure, HLD, hypertension, [place], PVD, stent placement, occlusion of the left carotid artery, COPD, sleep apnea, hypoxia, GERD, chronic renal insufficiency, BPH, chronic back pain, gout, right below the knee amputation, CVA, migraines, spinal stenosis, postlaminectomy syndrome, depression, insomnia, opioid dependence, psychosis, chronic pain syndrome, type II DM, hypothyroidism, obesity, hypokalemia, hypomagnesemia * Resides at [facility] * Reports diffuse redness and tenderness with abdominal wall below his umbilicus and right quadrant * Reports dyspnea with minimal exertion and needing oxygen recently * Denies sputum production but does report an occasional nonproductive cough * Chronic edema to left lower extremity * Denies any nausea or vomiting * Patient does report having spilled hot coffee on his abdomen about a week ago but he was unable to to do this due to his body habitus. He does not think th at it was blistered. * 12-lead EKG is obtained showing a sinus rhythm at 73 bpm with borderline first -degree AV block and left atrial hypertrophy. There is initial poor R wave progression and decreased voltage in the limb leads. T wave inversion in V1 through V4 and flattening of T wave in V5 is noted in a minimally prolonged QT segment is also observed. * Labs are obtained: * WBC8.71. * Hemoglobin 13.9. * Hematocrit 50.3. * Platelet 191. * Neutrophils 77%. There is no bandemia. * INR 1.27. * aPTT 31.4. * Sodium 144. * Potassium 4.0. * Chloride 102. * Carbon dioxide 40. * Anion gap 6.0. * BUN 21. Creatinine 1.0. GFR greater than 60. * Glucose 222. * Calcium 8.6. * Magnesium 1.9. * Total bilirubin 0.6. * AST 15, ALT 19, alkaline phosphatase 117. * Troponin is less than 0.017. * CRP 6.3. * Protein i6.5. * Albumin 3.3. * Lipase 43. * Blood ethyl alcohol 0.00. * ESR 2. * Hemoglobin A1c 8.8%. * proBNP 908. * UA is obtained and is concentrated but negative. * Blood cultures were obtained and are pending * Chest x-ray is obtained showing findings suspicious for minimal CHF. * CT of the abdomen and pelvis is obtained showing: * 1. Increased density within the subcutaneous fat as well as skin thickening mostly anteriorly. This presumably represents edema and is difficult to exclude cellulitis. * 2. Increased density within the left lung base. Difficult to exclude pneumonia if patient has infectious symptoms. * 3. Increased density within the gallbladder presumably representing gallstones. * 4. Other findings as described above which are nonacute. * He started on clindamycin 900 mg IV. * There are no concerning signs for sepsis. * Patient admitted to the medical floor for management of his cellulitis and mild CHF exacerbation. 12/24/2020 65-year-old male admitted for cellulitis of his abdomen and mild CHF exacerbation. Patient was switched to Rocephin 2 g daily. MRSA screen was negative. Labs today show a mild leukocytosis at 10.03. Hemoglobin is 13.8. Platelet 182,000. Neutrophils are elevated at 76.8. Sodium is 14.3. Potassium 3.8. Chloride 99. Carbon dioxide 37. Anion gap 10.8. BUN is 20. Creatinine 1.0. GFR is greater than 60. Glucose has been 157-208. Magnesium is 1.9. CRP is down to 4.5. He is on 40 mg twice daily diuretic dosing and has been having some urine output. He reports he feels better and less short of breath. He reports his abdominal pain is better and feels less full. Blood cultures are still pending. We will continue current treatment plan pending future labs and blood culture results. 12/25/2020 overnight events reviewed patient diuresing well denies chest pain or pressure no diarrhea 12/26/2020 Continue IV lasix; appears volume overload on exam continue ceftriaxone potassium replacement check electrolytes tomorrow may consider repeat Echo on sunday12/27/2020 This is a 65-year-old male admitted to the floor for abdominal cellulitis. Once admitted he was found to be fluid overloaded and we started to actively diurese. Overall his abdominal infection looks much better. Pain has improved to resolved. Patient has been diuresing quite well. He is down 17 pounds. Labs today were obtained. WBC is 10.01. Hemoglobin 13.9. Platelet 205,000. Neutrophils elevated 77.5. Sodium is 145. Potassium 4.2. Chloride 103. Carbon dioxide 41. Anion gap 5.2. BUN is 21. Creatinine 0.9. GFR greater than 60. Glucose is 209. Magnesium 1.9. Bilirubin 0.4. AST is 15, ALT 17, alkaline phosphatase 1.3. CRP is 4.9. Protein 6.7. Albumin is 3.1. CO2 is been hovering between 37 and 41. ABG was obtained today in the right radial after nursing reported patient has been somewhat more confused and sleepy. Showing a pH of 7.36. PCO2 of 77.1. PO2 73.0. HCO3 of 42.6. O2 saturation 93.1. Base excess is 13.2. AA gradient is 59. This was obtained on 3 L. RT is aware of the patient has he is reportedly been in for a sleep study and was found to have very severe sleep apnea. He was placed on a BiPAP machine however he is reportedly refused to pick this up and not been wearing it. We will start the patient on BiPAP while here. Will monitor need for IV antibiotics. We will continue to diurese pending labs tomorrow. We will continue BiPAP and repeat ABG at 1800 tonight. Length of stay likely 1 to 2 days pending improvement in labs. - Plan Plan:: Cellulitis, abdominal wall, improving Resides in [facility] facility * Switched from clindamycin to Rocephin 2gm daily after discussion with Dr. Polk * MRSA screen negative * Daily labs * Monitor for signs of drainage * Monitor for signs of abscess (none seen on CT of abdomen) * Await blood cultures CHF exacerbation, mild Acute on chronic respiratory acidosis Sleep apnea Non-compliance with BiPAP Hypercapnia COPD (chronic obstructive pulmonary disease) Cardiomyopathy Edema of lower extremity * 40mg IVP Lasix BID diuretic * Hold home PO Lasix * Monitor output * Telemetry * Echocardiogram obtained and pending * 2gm sodium restriction * 1.5L fluid restriction * O2 as needed to keep saturations >88% * Monitor daily labs * BiPAP * Repeat ABG today at 1800 * RT consult * Home respiratory meds as ordered History of CVA (cerebrovascular accident) History of FL (myocardial infarction) History of deep vein thrombosis Paroxysmal atrial fibrillation Stented coronary artery Carotid occlusion, left Coronary artery disease * Continue home Xarelto * Continue home statin * Telemetry * No acute concerns History of substance abuse Opioid dependence Post laminectomy syndrome Chronic pain syndrome Chronic neck pain Right below-knee amputee Chronic back pain Chronic migraine * Pain medications as ordered * PT/OT * Up to chair * No acute concerns Gout * No acute concerns Depression * No acute concerns * Home medications as ordered Insomnia * No acute concerns * Continue home melatonin Obesity * No acute concerns * Business Technology Analyst consultation History of hypokalemia Hypomagnesemia resolved * Monitor labs * Supplement as needed Benign prostatic hyperplasia * No acute concerns * Continue home medications CKD (chronic kidney disease) * No acute concerns * Monitor output * Monitor labs * Hold home Losartan for now Diabetes mellitus type 2 in obese * QID AC and bedtime glucose checks * Medium intensity sliding scale insulin * Diabetic diet GERD (gastroesophageal reflux disease) * No acute concerns * Monitor Code status: Full code PCP: Dr. Lloyd DVT prophylaxis: Home Xarelto Social: Patient resides at [facility] Disposition: Patient admitted for management of abdominal wall cellulitis and CHF exacerbation. LOS >96 Hrs due to need for diuresis and BiPAP due to acute on chronic hypercapnia <CarrieKal Devonte Jr - Last Filed: 12/27/20 16:49> - Patient Data Vitals - Most Recent: Last Vital Signs Temp 98.1 F 12/27/20 15:29 Pulse 76 12/27/20 15:29 Resp 20 12/27/20 15:29 BP 148/69 H 12/27/20 15:29 Pulse Ox 92 L 12/27/20 15:29 I&O - Last 24 Hours: Intake & Output 12/27/20 12/27/20 12/27/20 06:59 14:59 22:59 Intake Total 300 240 Output Total 800 850 Balance -500 -610 Lab Results Last 24 Hours: Laboratory Results - last 24 hr 12/26/20 12/27/20 12/27/20 Range/Units 21:34 05:55 05:55 WBC 10.01 H (4.23-9.07) K/mm3 RBC 5.76 (4.63-6.08) M/mm3 Hgb 13.9 (13.7-17.5) gm/dl Hct 50.8 (40.1-51.0) % MCV 88.2 (79.0-92.2) fl MCH 24.1 L (25.7-32.2) pg MCHC 27.4 L (32.2-35.5) g/dl RDW Std Deviation 54.7 H (35.1-43.9) fL Plt Count 205 (163-337) K/mm3 MPV 11.0 (9.4-12.3) fl Neut % (Auto) 77.5 H (34.0-67.9) % Lymph % (Auto) 10.0 L (21.8-53.1) % [place] % (Auto) 8.2 (5.3-12.2) % Eos % (Auto) 3.6 (0.8-7.0) Baso % (Auto) 0.4 (0.1-1.2) % Neut # (Auto) 7.76 H (1.78-5.38) K/mm3 Lymph # (Auto) 1.00 L (1.32-3.57) K/mm3 [place] # (Auto) 0.82 (0.30-0.82) K/mm3 Eos # (Auto) 0.36 (0.04-0.54) K/mm3 Baso # (Auto) 0.04 (0.01-0.08) K/mm3 Manual Slide Review Abnormal smear Puncture Site ABG pH (7.35-7.45) ABG pCO2 (35.0-45.0) mmHg ABG pO2 (80.0-100.0) mmHg ABG HCO3 (22.0-26.0) meq/L ABG O2 Saturation (96.0-97.0) % ABG Base Excess (-2-2.0) Naeem Test A-a Gradient mmHg O2 Delivery Device Oxygen Flow Rate FiO2 (21.00-100.00) % Sodium 145 (136-145) mEq/L Potassium 4.2 (3.5-5.1) mEq/L Chloride 103 (98-107) mEq/L Carbon Dioxide 41 H* (21-32) mEq/L Anion Gap 5.2 (5-15) BUN 21 H (7-18) mg/dL Creatinine 0.9 (0.7-1.3) mg/dL Est Cr Clr Drug Dosing 89.81 mL/min Estimated GFR (MDRD) > 60 (>60) mL/min BUN/Creatinine Ratio 23.3 H (14-18) Glucose 209 H (70-99) mg/dL POC Glucose 247 H (70-99) mg/dL Calcium 8.8 (8.5-10.1) mg/dL Magnesium 1.9 (1.8-2.4) mg/dL Total Bilirubin 0.4 (0.2-1.0) mg/dL AST 15 (15-37) U/L ALT 17 (16-63) U/L Alkaline Phosphatase 113 (46-116) U/L C-Reactive Protein 4.9 H* (<1.0) mg/dL Total Protein 6.7 (6.4-8.2) g/dl Albumin 3.1 L (3.4-5.0) g/dl Globulin 3.6 gm/dL Albumin/Globulin Ratio 0.9 L (1-2) 12/27/20 12/27/20 12/27/20 Range/Units 06:18 10:58 13:36 WBC (4.23-9.07) K/mm3 RBC (4.63-6.08) M/mm3 Hgb (13.7-17.5) gm/dl Hct (40.1-51.0) % MCV (79.0-92.2) fl MCH (25.7-32.2) pg MCHC (32.2-35.5) g/dl RDW Std Deviation (35.1-43.9) fL Plt Count (163-337) K/mm3 MPV (9.4-12.3) fl Neut % (Auto) (34.0-67.9) % Lymph % (Auto) (21.8-53.1) % [place] % (Auto) (5.3-12.2) % Eos % (Auto) (0.8-7.0) Baso % (Auto) (0.1-1.2) % Neut # (Auto) (1.78-5.38) K/mm3 Lymph # (Auto) (1.32-3.57) K/mm3 [place] # (Auto) (0.30-0.82) K/mm3 Eos # (Auto) (0.04-0.54) K/mm3 Baso # (Auto) (0.01-0.08) K/mm3 Manual Slide Review Puncture Site Rt radial ABG pH 7.36 (7.35-7.45) ABG pCO2 77.1 H* (35.0-45.0) mmHg ABG pO2 73.0 L (80.0-100.0) mmHg ABG HCO3 42.6 H (22.0-26.0) meq/L ABG O2 Saturation 93.1 L (96.0-97.0) % ABG Base Excess 13.2 H (-2-2.0) Naeem Test Positive A-a Gradient 59 mmHg O2 Delivery Device Nasal cannula Oxygen Flow Rate 3.0 FiO2 32.00 (21.00-100.00) % Sodium (136-145) mEq/L Potassium (3.5-5.1) mEq/L Chloride (98-107) mEq/L Carbon Dioxide (21-32) mEq/L Anion Gap (5-15) BUN (7-18) mg/dL Creatinine (0.7-1.3) mg/dL Est Cr Clr Drug Dosing mL/min Estimated GFR (MDRD) (>60) mL/min BUN/Creatinine Ratio (14-18) Glucose (70-99) mg/dL POC Glucose 118 H 271 H (70-99) mg/dL Calcium (8.5-10.1) mg/dL Magnesium (1.8-2.4) mg/dL Total Bilirubin (0.2-1.0) mg/dL AST (15-37) U/L ALT (16-63) U/L Alkaline Phosphatase (46-116) U/L C-Reactive Protein (<1.0) mg/dL Total Protein (6.4-8.2) g/dl Albumin (3.4-5.0) g/dl Globulin gm/dL Albumin/Globulin Ratio (1-2) / Range/Units 16:33 WBC (4.23-9.07) K/mm3 RBC (4.63-6.08) M/mm3 Hgb (13.7-17.5) gm/dl Hct (40.1-51.0) % MCV (79.0-92.2) fl MCH (25.7-32.2) pg MCHC (32.2-35.5) g/dl RDW Std Deviation (35.1-43.9) fL Plt Count (163-337) K/mm3 MPV (9.4-12.3) fl Neut % (Auto) (34.0-67.9) % Lymph % (Auto) (21.8-53.1) % [place] % (Auto) (5.3-12.2) % Eos % (Auto) (0.8-7.0) Baso % (Auto) (0.1-1.2) % Neut # (Auto) (1.78-5.38) K/mm3 Lymph # (Auto) (1.32-3.57) K/mm3 [place] # (Auto) (0.30-0.82) K/mm3 Eos # (Auto) (0.04-0.54) K/mm3 Baso # (Auto) (0.01-0.08) K/mm3 Manual Slide Review Puncture Site ABG pH (7.35-7.45) ABG pCO2 (35.0-45.0) mmHg ABG pO2 (80.0-100.0) mmHg ABG HCO3 (22.0-26.0) meq/L ABG O2 Saturation (96.0-97.0) % ABG Base Excess (-2-2.0) Naeem Test A-a Gradient mmHg O2 Delivery Device Oxygen Flow Rate FiO2 (21.00-100.00) % Sodium (136-145) mEq/L Potassium (3.5-5.1) mEq/L Chloride (98-107) mEq/L Carbon Dioxide (21-32) mEq/L Anion Gap (5-15) BUN (7-18) mg/dL Creatinine (0.7-1.3) mg/dL Est Cr Clr Drug Dosing mL/min Estimated GFR (MDRD) (>60) mL/min BUN/Creatinine Ratio (14-18) Glucose (70-99) mg/dL POC Glucose 258 H (70-99) mg/dL Calcium (8.5-10.1) mg/dL Magnesium (1.8-2.4) mg/dL Total Bilirubin (0.2-1.0) mg/dL AST (15-37) U/L ALT (16-63) U/L Alkaline Phosphatase (46-116) U/L C-Reactive Protein (<1.0) mg/dL Total Protein (6.4-8.2) g/dl Albumin (3.4-5.0) g/dl Globulin gm/dL Albumin/Globulin Ratio (1-2) Med Orders - Current: Current Medications Acetaminophen (Acetaminophen 325 Mg Tab) 650 mg PO BID PRN PRN Reason: Pain Last Admin: 12/26/20 17:25 Dose: 650 mg Documented by: Albuterol/Ipratropium (Albuterol/Ipratropium 3.0-0.5 Mg/3 Ml Neb Soln) 3 ml INH Q6HRRT PENDING SALE TO [facility] Last Admin: 12/27/20 13:59 Dose: 3 ml Documented by: Aspirin (Aspirin 81 Mg Tab.Ec) 81 mg PO DAILY PENDING SALE TO [facility] Last Admin: 12/27/20 08:49 Dose: 81 mg Documented by: Atorvastatin Calcium (Atorvastatin 20 Mg Tab) 20 mg PO DAILY PENDING SALE TO [facility] Last Admin: 12/27/20 08:49 Dose: 20 mg Documented by: Bisacodyl (Bisacodyl 10 Mg Supp) 10 mg RECTAL DAILY PRN PRN Reason: Constipation Furosemide (Furosemide 40 Mg/4 Ml Vial) 40 mg IVPUSH BIDDIURETIC PENDING SALE TO [facility] Last Admin: 12/27/20 14:06 Dose: 40 mg Documented by: Gabapentin (Gabapentin 300 Mg Cap) 300 mg PO TID PENDING SALE TO [facility] Last Admin: 12/27/20 14:06 Dose: 300 mg Documented by: Ceftriaxone Sodium 2 gm/ (Sodium Chloride) 100 mls @ 200 mls/hr IV Q24H PENDING SALE TO [facility] Last Admin: 12/26/20 17:02 Dose: 200 mls/hr Documented by: Insulin Human Lispro (Insulin Lispro 100 Unit/Ml 10 Ml Vial) 0 unit SUBCUT QIDACANDBED PENDING SALE TO [facility]; Protocol Last Admin: 12/27/20 12:13 Dose: 6 units Documented by: Lactulose (Lactulose Soln 10 Gm/15 Ml 30 Ml Ud Cup) 40 gm PO DAILY PENDING SALE TO [facility] Last Admin: 12/27/20 08:48 Dose: 40 gm Documented by: Melatonin (Melatonin 3 Mg Tab) 3 mg PO BEDTIME PENDING SALE TO [facility] Last Admin: 12/26/20 20:21 Dose: 3 mg Documented by: Metoprolol Succinate (Metoprolol Succinate 50 Mg Tab.Er) 50 mg PO QPM PENDING SALE TO [facility] Last Admin: 12/26/20 17:07 Dose: 50 mg Documented by: Nystatin (Nystatin Topical Powder 15 Gm Bottle) 0 gm TOP QID PRN PRN Reason: Other Olanzapine (Olanzapine 5 Mg Tab) 20 mg PO QPM PENDING SALE TO [facility] Last Admin: 12/26/20 17:03 Dose: 20 mg Documented by: Rivaroxaban (Rivaroxaban 10 Mg Tab) 20 mg PO QPM PENDING SALE TO [facility] Last Admin: 12/26/20 17:02 Dose: 20 mg Documented by: Senna (Sennosides 8.6 Mg Tab) 17.2 mg PO BEDTIME PRN PRN Reason: Constipation Last Admin: 12/23/20 18:22 Dose: 17.2 mg Documented by: Sertraline HCl (Sertraline 25 Mg Tab) 75 mg PO BEDTIME PENDING SALE TO [facility] Last Admin: 12/26/20 20:22 Dose: 75 mg Documented by: Tamsulosin HCl (Tamsulosin 0.4 Mg Cap.Er) 0.8 mg PO BEDTIME PENDING SALE TO [facility] Last Admin: 12/26/20 20:22 Dose: 0.8 mg Documented by: Tramadol HCl (Tramadol 50 Mg Tab) 50 mg PO TID PRN PRN Reason: Pain Last Admin: 12/27/20 02:28 Dose: 50 mg Documented by: Discontinued Medications Furosemide (Furosemide 40 Mg Tab) 40 mg PO DAILY KAREEM Furosemide (Furosemide 20 Mg Tab) 20 mg PO DAILY@1200 [facility] Furosemide (Furosemide 40 Mg/4 Ml Vial) 40 mg IVPUSH NOW ONE Stop: 12/23/20 16:16 Last Admin: 12/23/20 18:24 Dose: 40 mg Documented by: Clindamycin Phosphate 900 mg/ (Premix) 50 mls @ 100 mls/hr IV ONETIME ONE Stop: 12/23/20 11:17 Last Admin: 12/23/20 11:32 Dose: 100 mls/hr Documented by: Lactulose (Lactulose Soln 10 Gm/15 Ml 30 Ml Ud Cup) 40 gm PO QPM KAREEM Last Admin: 12/26/20 17:05 Dose: 40 gm Documented by: Non-Formulary Medication (Acetaminophen) 500 mg PO QID KAREEM Potassium Chloride (Potassium Chloride 20 Meq Tab.Er) 20 meq PO ONETIME ONE Stop: 12/25/20 13:00 Last Admin: 12/25/20 14:28 Dose: 20 meq Documented by: Sertraline HCl (Sertraline 50 Mg Tab) 50 mg PO BEDTIME KAREEM - Patient Data Lab Results Last 24 hrs: Laboratory Results - last 24 hr 12/26/20 12/27/20 12/27/20 Range/Units 21:34 05:55 05:55 WBC 10.01 H (4.23-9.07) K/mm3 RBC 5.76 (4.63-6.08) M/mm3 Hgb 13.9 (13.7-17.5) gm/dl Hct 50.8 (40.1-51.0) % MCV 88.2 (79.0-92.2) fl MCH 24.1 L (25.7-32.2) pg MCHC 27.4 L (32.2-35.5) g/dl RDW Std Deviation 54.7 H (35.1-43.9) fL Plt Count 205 (163-337) K/mm3 MPV 11.0 (9.4-12.3) fl Neut % (Auto) 77.5 H (34.0-67.9) % Lymph % (Auto) 10.0 L (21.8-53.1) % [place] % (Auto) 8.2 (5.3-12.2) % Eos % (Auto) 3.6 (0.8-7.0) Baso % (Auto) 0.4 (0.1-1.2) % Neut # (Auto) 7.76 H (1.78-5.38) K/mm3 Lymph # (Auto) 1.00 L (1.32-3.57) K/mm3 [place] # (Auto) 0.82 (0.30-0.82) K/mm3 Eos # (Auto) 0.36 (0.04-0.54) K/mm3 Baso # (Auto) 0.04 (0.01-0.08) K/mm3 Manual Slide Review Abnormal smear Puncture Site ABG pH (7.35-7.45) ABG pCO2 (35.0-45.0) mmHg ABG pO2 (80.0-100.0) mmHg ABG HCO3 (22.0-26.0) meq/L ABG O2 Saturation (96.0-97.0) % ABG Base Excess (-2-2.0) Naeem Test A-a Gradient mmHg O2 Delivery Device Oxygen Flow Rate FiO2 (21.00-100.00) % Sodium 145 (136-145) mEq/L Potassium 4.2 (3.5-5.1) mEq/L Chloride 103 (98-107) mEq/L Carbon Dioxide 41 H* (21-32) mEq/L Anion Gap 5.2 (5-15) BUN 21 H (7-18) mg/dL Creatinine 0.9 (0.7-1.3) mg/dL Est Cr Clr Drug Dosing 89.81 mL/min Estimated GFR (MDRD) > 60 (>60) mL/min BUN/Creatinine Ratio 23.3 H (14-18) Glucose 209 H (70-99) mg/dL POC Glucose 247 H (70-99) mg/dL Calcium 8.8 (8.5-10.1) mg/dL Magnesium 1.9 (1.8-2.4) mg/dL Total Bilirubin 0.4 (0.2-1.0) mg/dL AST 15 (15-37) U/L ALT 17 (16-63) U/L Alkaline Phosphatase 113 (46-116) U/L C-Reactive Protein 4.9 H* (<1.0) mg/dL Total Protein 6.7 (6.4-8.2) g/dl Albumin 3.1 L (3.4-5.0) g/dl Globulin 3.6 gm/dL Albumin/Globulin Ratio 0.9 L (1-2) 12/27/20 12/27/20 12/27/20 Range/Units 06:18 10:58 13:36 WBC (4.23-9.07) K/mm3 RBC (4.63-6.08) M/mm3 Hgb (13.7-17.5) gm/dl Hct (40.1-51.0) % MCV (79.0-92.2) fl MCH (25.7-32.2) pg MCHC (32.2-35.5) g/dl RDW Std Deviation (35.1-43.9) fL Plt Count (163-337) K/mm3 MPV (9.4-12.3) fl Neut % (Auto) (34.0-67.9) % Lymph % (Auto) (21.8-53.1) % [place] % (Auto) (5.3-12.2) % Eos % (Auto) (0.8-7.0) Baso % (Auto) (0.1-1.2) % Neut # (Auto) (1.78-5.38) K/mm3 Lymph # (Auto) (1.32-3.57) K/mm3 [place] # (Auto) (0.30-0.82) K/mm3 Eos # (Auto) (0.04-0.54) K/mm3 Baso # (Auto) (0.01-0.08) K/mm3 Manual Slide Review Puncture Site Rt radial ABG pH 7.36 (7.35-7.45) ABG pCO2 77.1 H* (35.0-45.0) mmHg ABG pO2 73.0 L (80.0-100.0) mmHg ABG HCO3 42.6 H (22.0-26.0) meq/L ABG O2 Saturation 93.1 L (96.0-97.0) % ABG Base Excess 13.2 H (-2-2.0) Naeem Test Positive A-a Gradient 59 mmHg O2 Delivery Device Nasal cannula Oxygen Flow Rate 3.0 FiO2 32.00 (21.00-100.00) % Sodium (136-145) mEq/L Potassium (3.5-5.1) mEq/L Chloride (98-107) mEq/L Carbon Dioxide (21-32) mEq/L Anion Gap (5-15) BUN (7-18) mg/dL Creatinine (0.7-1.3) mg/dL Est Cr Clr Drug Dosing mL/min Estimated GFR (MDRD) (>60) mL/min BUN/Creatinine Ratio (14-18) Glucose (70-99) mg/dL POC Glucose 118 H 271 H (70-99) mg/dL Calcium (8.5-10.1) mg/dL Magnesium (1.8-2.4) mg/dL Total Bilirubin (0.2-1.0) mg/dL AST (15-37) U/L ALT (16-63) U/L Alkaline Phosphatase (46-116) U/L C-Reactive Protein (<1.0) mg/dL Total Protein (6.4-8.2) g/dl Albumin (3.4-5.0) g/dl Globulin gm/dL Albumin/Globulin Ratio (1-2) // Range/Units 16:33 WBC (4.23-9.07) K/mm3 RBC (4.63-6.08) M/mm3 Hgb (13.7-17.5) gm/dl Hct (40.1-51.0) % MCV (79.0-92.2) fl MCH (25.7-32.2) pg MCHC (32.2-35.5) g/dl RDW Std Deviation (35.1-43.9) fL Plt Count (163-337) K/mm3 MPV (9.4-12.3) fl Neut % (Auto) (34.0-67.9) % Lymph % (Auto) (21.8-53.1) % [place] % (Auto) (5.3-12.2) % Eos % (Auto) (0.8-7.0) Baso % (Auto) (0.1-1.2) % Neut # (Auto) (1.78-5.38) K/mm3 Lymph # (Auto) (1.32-3.57) K/mm3 [place] # (Auto) (0.30-0.82) K/mm3 Eos # (Auto) (0.04-0.54) K/mm3 Baso # (Auto) (0.01-0.08) K/mm3 Manual Slide Review Puncture Site ABG pH (7.35-7.45) ABG pCO2 (35.0-45.0) mmHg ABG pO2 (80.0-100.0) mmHg ABG HCO3 (22.0-26.0) meq/L ABG O2 Saturation (96.0-97.0) % ABG Base Excess (-2-2.0) Naeem Test A-a Gradient mmHg O2 Delivery Device Oxygen Flow Rate FiO2 (21.00-100.00) % Sodium (136-145) mEq/L Potassium (3.5-5.1) mEq/L Chloride (98-107) mEq/L Carbon Dioxide (21-32) mEq/L Anion Gap (5-15) BUN (7-18) mg/dL Creatinine (0.7-1.3) mg/dL Est Cr Clr Drug Dosing mL/min Estimated GFR (MDRD) (>60) mL/min BUN/Creatinine Ratio (14-18) Glucose (70-99) mg/dL POC Glucose 258 H (70-99) mg/dL Calcium (8.5-10.1) mg/dL Magnesium (1.8-2.4) mg/dL Total Bilirubin (0.2-1.0) mg/dL AST (15-37) U/L ALT (16-63) U/L Alkaline Phosphatase (46-116) U/L C-Reactive Protein (<1.0) mg/dL Total Protein (6.4-8.2) g/dl Albumin (3.4-5.0) g/dl Globulin gm/dL Albumin/Globulin Ratio (1-2) Result Diagrams: 12/27/20 05:55 12/27/20 05:55 Sepsis Event Note - Focused Exam Vital Signs: Vital Signs Temp Pulse Resp BP Pulse Ox Pulse Ox 12/27/20 15:29 98.1 F 76 20 148/69 H 92 L 12/27/20 13:59 91 L 12/27/20 09:08 98.1 F 75 20 145/59 H 93 L 12/27/20 08:56 90 L 12/27/20 05:46 90 L - Plan Plan:: Case reviewed and discussed in full. Agree with evaluation, assessment and plan.
[2020-12-27] MEDS: Lactulose Soln 10 GM/15 ML 30 ML UD Cup PO SCH (08:48)
[2020-12-27] MEDS: Gabapentin 300 MG Cap PO SCH ×3 (08:49→21:28)
[2020-12-27] MEDS: atorvaSTATin 20 MG Tab PO SCH (08:49)
[2020-12-27] MEDS: Aspirin 81 MG Tab.EC PO SCH (08:49)
[2020-12-27] MEDS: Metoprolol Succinate 50 MG Tab.ER PO SCH (17:18)
[2020-12-27] MEDS: Rivaroxaban 10 MG Tab PO SCH (17:18)
[2020-12-27] MEDS: cefTRIAXone 2 GM in Sodium Chloride 0.9% 100 ML IV SCH (17:18)
[2020-12-27] MEDS: OLANZapine 5 MG Tab PO SCH (17:19)
[2020-12-27] MEDS: Sertraline 25 MG Tab PO SCH (21:27)
[2020-12-27] MEDS: Melatonin 3 MG Tab PO SCH (21:28)
[2020-12-27] MEDS: Tamsulosin 0.4 MG Cap.ER PO SCH (21:29)
[2020-12-28] MEDS: Albuterol/Ipratropium 3.0-0.5 MG/3 ML Neb Soln INH SCH ×2 (03:23→08:23)
[2020-12-28] MEDS: Furosemide 40 MG/4 ML VIAL IVPUSH SCH (06:09)
[2020-12-28] MEDS: Insulin Lispro 100 UNIT/ML 10 ML Vial SUBCUT SCH ×2 (08:01→12:06)
[2020-12-28] MEDS: Gabapentin 300 MG Cap PO SCH (08:02)
[2020-12-28] MEDS: Lactulose Soln 10 GM/15 ML 30 ML UD Cup PO SCH (08:02)
[2020-12-28] MEDS: Aspirin 81 MG Tab.EC PO SCH (08:03)
[2020-12-28] MEDS: atorvaSTATin 20 MG Tab PO SCH (08:03)
--- NOTE | 2020-12-28 08:31 | PCM.DCSUM1 ---
<Ever Magana - Last Filed: 12/28/20 11:21> Discharge Summary - Hospital Course HPI Initial Comments: This is a 65-year-old male who presents to ED on 12/23/2020 via [facility] form [facility] where he resides with abdominal pain and chills which developed last night. He reports diffuse redness and tenderness with abdominal wall below his umbilicus and right quadrant. 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 He states his stump has been slowly healing. He reports dyspnea with minimal exertion and needing oxygen recently. Denies sputum production but does report an occasional nonproductive cough. Chronic edema to left lower extremity. Denies any nausea or vomiting. In the ED twelve-lead EKG is obtained showing a sinus rhythm at 73 bpm with borderline first-degree AV block and left atrial hypertrophy. There is initial poor R wave progression and decreased voltage in the limb leads. T wave inversion in V1 through V4 and flattening of T wave in V5 is noted in a minimally prolonged QT segment is also observed. Temp is 37 C. Pulse 78. Respirations 18. Blood pressure 129/61. Pulse ox 92%. Labs are obtained with a WBC of 8.71. Hemoglobin 13.9. Hematocrit 50.3. Platelet 191. Neutrophils 77%. There is no bandemia. INR is 1.27. aPTT is 31.4. Sodium is 144. Potassium 4.0. Chloride 102. Carbon dioxide 40. Anion gap 6.0. BUN is 21. Creatinine 1.0. GFR greater than 60. Glucose is 222. Calcium is 8.6. Magnesium 1.9. Total bilirubin 0.6. AST is 15, ALT 19, alkaline phosphatase 117. Troponin is less than 0.017. CRP is 6.3. Protein is 6.5. Albumin 3.3. Lipase is 43. Blood ethyl alcohol is 0.00. ESR is 2. Hemoglobin A1c is 8.8%. proBNP is 908. UA is obtained and is concentrated but negative. Chest x-ray is obtained showing findings suspicious for minimal CHF. CT of the abdomen and pelvis is obtained showing "1. Increased density within the subcutaneous fat as well as skin thickening mostly anteriorly. This presumably represents edema and is difficult to exclude cellulitis. 2. Increased density within the left lung base. Difficult to exclude pneumonia if patient has infectious symptoms. 3. Increased density within the gallbladder presumably representing gallstones. 4. Other findings as described above which are nonacute. Blood cultures were obtained and are pending. He started on clindamycin 900 mg IV. Patient does report having spilled hot coffee on his abdomen about a week ago but he was unable to to do this due to his body habitus. He does not think that it was blistered. There are no concerning signs for sepsis. Patient admitted to the medical floor for management of his cellulitis and mild CHF exacerbation. He carries a history of A. fib, VTE, CAD, cardiomyopathy, heart failure, HLD, hypertension, UT, PVD, stent placement, occlusion of the left carotid artery, COPD, sleep apnea, hypoxia, GERD, chronic renal insufficiency, BPH, chronic back pain, gout, right below the knee amputation, CVA, migraines, spinal stenosis, po stlaminectomy syndrome, depression, insomnia, opioid dependence, psychosis, chronic pain syndrome, type II DM, hypothyroidism, obesity, hypokalemia, hypomagnesemia. He is a full code. His PCP is Dr. Thrasher. Diagnosis: Stroke: No - Discharge Data Discharge Date: 12/28/20 (Admit date: 12/23/2020) Discharge Disposition: DC/Tfer to SNF 03 Condition: Fair - Referral to Home Health Primary Care Physician: Abisai Lloyd MD - Discharge Diagnosis/Problem(s) (1) CHF exacerbation SNOMED Code(s): 629393780, 99279495116187 ICD Code: I50.9 - HEART FAILURE, UNSPECIFIED Status: Acute Priority: Medium Qualifiers: Heart failure type: unspecified Qualified Code(s): I50.9 - Heart failure, unspecified (2) Cardiomyopathy SNOMED Code(s): 89980596 ICD Code: I42.9 - CARDIOMYOPATHY, UNSPECIFIED Status: Chronic Priority: Medium Qualifiers: Cardiomyopathy type: unspecified Qualified Code(s): I42.9 - Cardiomyopathy, unspecified (3) Chronic neck pain SNOMED Code(s): 4152772262029 ICD Code: M54.2 - CERVICALGIA; G89.29 - OTHER CHRONIC PAIN Status: Chronic Priority: Low (4) Gout SNOMED Code(s): 99764481 ICD Code: M10.9 - GOUT, UNSPECIFIED Status: Chronic Priority: Low Qualifiers: Gout site: unspecified site Gout etiology: unspecified cause Chronicity: chronic Presence of tophus: without tophus Qualified Code(s): M1A.9XX0 - Chronic gout, unspecified, without tophus (tophi) (5) Right below-knee amputee SNOMED Code(s): 209900880, 753675412, 788634110 ICD Code: Z89.511 - ACQUIRED ABSENCE OF RIGHT LEG BELOW KNEE Status: Chronic Priority: Medium (6) Depression SNOMED Code(s): 27986391 ICD Code: F32.9 - MAJOR DEPRESSIVE DISORDER, SINGLE EPISODE, UNSPECIFIED Status: Chronic Priority: Low Qualifiers: Depression Type: other depression Qualified Code(s): F32.89 - Other sp ecified depressive episodes (7) Insomnia SNOMED Code(s): 895553903 ICD Code: G47.00 - INSOMNIA, UNSPECIFIED Status: Chronic Priority: Low Qualifiers: Insomnia type: unspecified Qualified Code(s): G47.00 - Insomnia, un specified (8) History of substance abuse SNOMED Code(s): 512015948 ICD Code: F19.11 - OTHER PSYCHOACTIVE SUBSTANCE ABUSE, IN REMISSION Status: Chronic Priority: Low (9) Opioid dependence SNOMED Code(s): 90838505 ICD Code: F11.20 - OPIOID DEPENDENCE, UNCOMPLICATED Status: Chronic Priority: Medium Qualifiers: Substance use status: with unspecified opioid-induced disorder Qualified Code(s): F11.29 - Opioid dependence with unspecified opioid-induced disorder (10) Post laminectomy syndrome SNOMED Code(s): 96478494 ICD Code: M96.1 - POSTLAMINECTOMY SYNDROME, NOT ELSEWHERE CLASSIFIED Status: Chronic Priority: Low (11) Chronic pain syndrome SNOMED Code(s): 020890254 ICD Code: G89.4 - CHRONIC PAIN SYNDROME Status: Chronic Priority: Low (12) Obesity SNOMED Code(s): 888835588, 901211732 ICD Code: E66.9 - OBESITY, UNSPECIFIED Status: Chronic Priority: Low Qualifiers: Obesity type: unspecified obesity type Obesity classification: adult class 3 (BMI >= 40) Serious obesity comorbidity presence: with serious comorbidity Body mass index: BMI 40.0-44.9 Qualified Code(s): E66.01 - Morbid (severe) obesity due to excess calories; Z68.41 - Body mass index [BMI]40.0-44.9, adult (13) History of hypokalemia SNOMED Code(s): 180431158 ICD Code: Z86.39 - PERSONAL HISTORY OF ENDO, NUTRITIONAL AND METABOLIC DISEASE Status: Chronic Priority: Low (14) Cellulitis, abdominal wall SNOMED Code(s): 74442981 ICD Code: L03.311 - CELLULITIS OF ABDOMINAL WALL Status: Acute Priority: High (15) Hypomagnesemia SNOMED Code(s): 404003911 ICD Code: E83.42 - HYPOMAGNESEMIA Status: Acute Priority: Medium Onset Date: 07/21/15 Problem Details: - Replete prior to d/c (16) Benign prostatic hyperplasia SNOMED Code(s): 179421527 ICD Code: N40.0 - BENIGN PROSTATIC HYPERPLASIA WITHOUT LOWER URINRY TRACT SYMP Status: Chronic Priority: Low Qualifiers: Lower urinary tract symptom presence: unspecified whether lower urinary tract symptoms present Qualified Code(s): N40.0 - Benign prostatic hyperplasia without lower urinary tract symptoms (17) CKD (chronic kidney disease) SNOMED Code(s): 696502659 ICD Code: N18.9 - CHRONIC KIDNEY DISEASE, UNSPECIFIED Status: Chronic Priority: Medium Qualifiers: Chronic kidney disease stage: unspecified stage Qualified Code(s): N18.9 - Chronic kidney disease, unspecified (18) COPD (chronic obstructive pulmonary disease) SNOMED Code(s): 78250238 ICD Code: J44.9 - CHRONIC OBSTRUCTIVE PULMONARY DISEASE, UNSPECIFIED Status: Chronic Priority: Medium Qualifiers: COPD type: unspecified COPD Qualified Code(s): J44.9 - Chronic obstructive pulmonary disease, unspecified (19) Carotid occlusion, left SNOMED Code(s): 161700728228762 ICD Code: I65.22 - OCCLUSION AND STENOSIS OF LEFT CAROTID ARTERY Status: Chronic Priority: Low (20) Chronic back pain SNOMED Code(s): 591939261 ICD Code: M54.9 - DORSALGIA, UNSPECIFIED; G89.29 - OTHER CHRONIC PAIN Status: Chronic Priority: Low Qualifiers: Back pain location: back pain in unspecified location Back pain laterality: unspecified Qualified Code(s): M54.9 - Dorsalgia, unspecified; G89.29 - Other chronic pain (21) Chronic migraine SNOMED Code(s): 180580275 ICD Code: G43.709 - CHRONIC MIGRAINE W/O AURA, NOT INTRACTABLE, W/O STAT MIGR Status: Chronic Priority: Low (22) Coronary artery disease SNOMED Code(s): 14164413 ICD Code: I25.10 - ATHSCL HEART DISEASE OF PLATINUM CORONARY ARTERY W/O ANG PCTRS Status: Chronic Priority: Low Qualifiers: Coronary Disease-Associated Artery/Lesion type: unspecified vessel or lesion type [place] vs. transplanted heart: unspecified whether elem or transplanted heart Associated angina: angina presence unspecified (23) Diabetes mellitus type 2 in obese SNOMED Code(s): 81997854 ICD Code: E11.9 - TYPE 2 DIABETES MELLITUS WITHOUT COMPLICATIONS; E66.9 - OBESITY, UNSPECIFIED Status: Chronic Priority: Medium (24) Edema of lower extremity SNOMED Code(s): 559576721 ICD Code: R60.0 - LOCALIZED EDEMA Status: Chronic Priority: High (25) GERD (gastroesophageal reflux disease) SNOMED Code(s): 330014066 ICD Code: K21.9 - GASTRO-ESOPHAGEAL REFLUX DISEASE WITHOUT ESOPHAGITIS Status: Chronic Priority: Low Qualifiers: Esophagitis presence: esophagitis presence not specified Qualified Code(s): K21.9 - Gastro-esophageal reflux disease without esophagitis (26) History of CVA (cerebrovascular accident) SNOMED Code(s): 509460274 ICD Code: Z86.73 - PRSNL HX OF TIA (TIA), AND CEREB INFRC W/O RESID DEFICITS Status: Chronic Priority: Low (27) History of UT (myocardial infarction) SNOMED Code(s): 186762824 ICD Code: I25.2 - OLD MYOCARDIAL INFARCTION Status: Chronic Priority: Low (28) History of deep vein thrombosis SNOMED Code(s): 410710930 ICD Code: Z86.718 - PERSONAL HISTORY OF OTHER VENOUS THROMBOSIS AND EMBOLISM Status: Chronic Priority: Low (29) Obstructive sleep apnea SNOMED Code(s): 95858240 ICD Code: G47.33 - OBSTRUCTIVE SLEEP APNEA (ADULT) (PEDIATRIC) Status: Chronic Priority: Medium (30) Paroxysmal atrial fibrillation SNOMED Code(s): 172312066 ICD Code: I48.0 - PAROXYSMAL ATRIAL FIBRILLATION Status: Chronic Priority: Medium (31) Stented coronary artery Status: Chronic Priority: Low (32) Resides in detention facility SNOMED Code(s): 898118176 ICD Code: Z78.9 - OTHER SPECIFIED HEALTH STATUS Status: Chronic Priority: Low (33) Acute on chronic respiratory acidosis SNOMED Code(s): 64299961, 09210968 ICD Code: E87.2 - ACIDOSIS Status: Acute Priority: High (34) History of sleep apnea SNOMED Code(s): 327806940 ICD Code: Z86.69 - PERSONAL HISTORY OF DIS OF THE NERVOUS SYS AND SENSE ORGANS Status: Chronic Priority: High (35) Noncompliance SNOMED Code(s): 5544395 ICD Code: Z91.19 - PATIENT'S NONCOMPLIANCE W OTH MEDICAL TREATMENT AND REGIMEN Status: Chronic Priority: High (36) Hypercapnia SNOMED Code(s): 19386537 ICD Code: R06.89 - OTHER ABNORMALITIES OF BREATHING Status: Acute Priority: High - Patient Summary/Data Consults: Consultations 12/23/20 16:04 OT Evaluation and Treatment [CONS] Routine PT Evaluation and Treatment [CONS] Routine Respiratory Care Assess and Treatment [CONS] Routine 12/23/20 17:07 Consult to Employee Representative [CONS] Routine Labs Pending at D/C: None Recommended Follow-up Testing/Procedures: Follow-up with primary care provider within 5 to 7 days of discharge, sooner if needed. * Recommend outpatient sleep study as patient was noted to be hypercapnic while here. * Per RT patient had sleep study approximately 3 years ago and was noted to have severe sleep apnea but has been refusing his BiPAP. * Recommend repeat CBC, CMP, and magnesium in follow-up. * Patient discharged on 500 mg twice daily Keflex with first dose tonight, 12/28/2020. * Patient discharged back to [facility]. * All prior home medications continued on discharge. Follow-up with surgeon regarding right below the knee amputation as scheduled prior. Hospital Course: This is a 65-year-old male who presented to ED on 12/23/2020 via [facility] from [facility] with abdominal pain and chills. History of A. fib, VTE, CAD, cardiomyopathy, heart failure, HLD, hypertension, UT, PVD, stent placement, occlusion of the left carotid artery, COPD, sleep apnea, hypoxia, GERD, chronic renal insufficiency, BPH, chronic back pain, gout, right below the knee amputation, CVA, migraines, spinal stenosis, postlaminectomy syndrome, depression, insomnia, opioid dependence, psychosis, chronic pain syndrome, type II DM, hypothyroidism, obesity, hypokalemia, hypomagnesemia. He reported that spilled some hot coffee on his abdomen about a week prior and since then has been having abdominal pain. CT scan of the abdomen and pelvis showed increased density within the subcutaneous fat and skin thickening anteriorly representing edema. Difficult to exclude cellulitis. There is also increased density within the left lung base and density within the gallbladder representing suspected gallstones. He was given clindamycin in the ED. There were no concerns for sepsis. Once on the floor patient was switched to IV Rocephin. MRSA screen was negative. Clinically the patient appeared to have some fluid overload so he was diuresed using 40 mg twice daily Lasix. This resulted in a 21 pound weight loss. Electrolytes were supplemented. He was placed on a 1.5 L fluid restriction and 2 g sodium restriction. Echocardiogram from 12/27/2020 returned: 1. Mildly increased left ventricular posterior wall thickness. 2. Moderate to severe septal left ventricular hypertrophy. 3. Normal pattern of left ventricular diastolic filling. 4. Left ventricular internal cavity size is normal. 5. Grossly normal left ventricular systolic function with estimated ejection fraction of 55 to 60%. Regional wall motion abnormalities cannot be excluded. 6. Normal right ventricular size, wall thickness, and systolic function. 7. Normal aortic valve without any evidence of aortic stenosis or insufficiency. 8. Trace mitral valve regurgitation. 9. Trace tricuspid valve regurgitation. He has been on 3 L since admission. On 12/27/2020 patient was noted to be somewhat confused. ABG was obtained showing a PCO2 of 77.1. Per RT patient was in for a sleep study several years ago however he never did follow-up with his BiPAP like he was supposed to. Patient was started on BiPAP while here but was refusing to wear it. We did discuss importance of a follow-up sleep study after discharge and patient is reluctantly in agreement. Repeat ABG showed improvement in PCO2. Patient does appear to have some chronic CO2 retention. Blood cultures have remained negative. He will be discharged on 2 more days of 500 mg Keflex twice daily with his first dose tonight, 12/28/2020. All other home medications were continued. He was instructed to weigh himself daily and record this in a journal. He should contact his primary care provider should he notice a 3 pound weight gain in 1 day or 5 pound weight gain in 1 week. Recommend follow-up with primary care provider within 5 to 7 days of discharge, sooner if needed. Recommend repeat CBC, CMP, and magnesium at that appointment. Patient was instructed to follow- up with his surgeon regarding amputation as prior. He should continue checking his blood glucose readings as per prior. Discharged on 2 g sodium restriction. Patient discharged back to [facility] today. - Patient Instructions Diet: Low Sodium, Diabetic Diet Activity: As Tolerated Driving: Do Not Drive Showering/Bathing: May Shower Notify Provider of: Fever, Increased Pain, Nausea and/or Vomiting Other/Special Instructions: Follow-up with primary care provider within 5-7 days of discharge, sooner if needed. Follow-up with your surgeon regarding your amputation as scheduled before. Recommend outpatient sleep study. Check your blood sugars as your prior routine. Continue PT and OT at SNF. Check your weight daily and recorded in a journal. Bring this journal with to all medical appointments. Contact your primary care provider should you notice that a 3 pound or more weight gain in a day or 5 pound or more weight gain in 1 week. You were prescribed an antibiotic for your abdominal skin infection. Take your first dose of this tonight (12/28/2020) and take twice a day until gone, even if you feel 100% better. Continue oxygen as needed to keep saturations >88%. Should symptoms return or worsein contact primary care provider or return to the Emergency Department. - Discharge Plan *PRESCRIPTION DRUG MONITORING PROGRAM REVIEWED*: Not Applicable *COPY OF PRESCRIPTION DRUG MONITORING REPORT IN PATIENT BERT: Not Applicable Prescriptions/Med Rec: cephALEXin [Keflex] 500 mg PO Q12H #4 cap Home Medications: Home Meds Melatonin 5 mg PO BEDTIME 03/10/19 [History] Furosemide 40 mg PO DAILY 01/17/20 [History] Metoprolol Succinate [Toprol XL 50mg] 50 mg PO QPM 01/17/20 [History] Sennosides [Senna] 17.2 mg PO BEDTIME PRN 09/05/20 [History] Tamsulosin [Flomax] 0.8 mg PO BEDTIME 01/17/20 [History] Fluticasone Propionate [Flovent HFA] 2 spray INH BID 01/20/20 [History] OLANZapine [Olanzapine] 20 mg PO QPM 01/20/20 [History] Acetaminophen 500 mg PO QID 12/23/20 [History] Acetaminophen 650 mg PO BID PRN 12/23/20 [History] Albuterol/Ipratropium [Combivent Respimat] 1 puff IH QID 12/23/20 [History] Aspirin [Aspirin EC] 81 mg PO DAILY 12/23/20 [History] Carbamide Peroxide [Debrox] 3 drop EARBOTH BEDTIME PRN 12/23/20 [History] Furosemide [Lasix] 20 mg PO 1200 12/23/20 [History] Gabapentin [Neurontin] 300 mg PO TID 12/23/20 [History] Lactulose 60 ml PO QPM 12/23/20 [History] Losartan [Cozaar] 25 mg PO DAILY 12/23/20 [History] Rivaroxaban [Xarelto] 20 mg PO QPM 12/23/20 [History] Sertraline [Zoloft] 25 mg PO BEDTIME 12/23/20 [History] Sertraline [Zoloft] 50 mg PO BEDTIME 12/23/20 [History] atorvaSTATin [Lipitor] 20 mg PO DAILY 12/23/20 [History] bisacodyL [Dulcolax] 10 mg RECTAL DAILY PRN 12/23/20 [History] traMADol [Ultram] 50 mg PO TID PRN 12/23/20 [History] cephALEXin [Keflex] 500 mg PO Q12H #4 cap 12/28/20 [Rx] Oxygen Therapy Mode: Nasal Cannula Oxygen Flow Rate (L/min): 3 Maintain SpO2% greater than: 88 Referrals: Abisai Lloyd MD [Primary Care Provider] - 01/05/21 11:30 am - Discharge Summary/Plan Comment DC Time >30 min.: Yes Total # of Minutes for Discharge Time: 45 mins - General Info Date of Service: 12/28/20 Admission Dx/Problem (Free Text: Admission Diagnosis/Problem Admission Diagnosis/Problem Abdominal pain Functional Status: Reports: Pain Controlled, Tolerating Diet, Ambulating, Urinating. Denies: New Symptoms - Review of Systems General: Reports: No Symptoms. Denies: Fever, Weakness, Fatigue HEENT: Reports: No Symptoms. Denies: Headaches, Visual Changes Pulmonary: Reports: No Symptoms. Denies: Shortness of Breath, Cough, Sputum, Wheezing Cardiovascular: Reports: Edema. Denies: Chest Pain, Palpitations, Dyspnea on Exertion Gastrointestinal: Reports: No Symptoms. Denies: Abdominal Pain, Constipation, Diarrhea, Nausea, Vomiting Genitourinary: Reports: No Symptoms. Denies: Pain Musculoskeletal: Reports: No Symptoms Skin: Reports: No Symptoms. Denies: Cyanosis Neurological: Reports: Confusion (at times ), Difficulty Walking (Right below the knee amputee), Gait Disturbance. Denies: Headache, Numbness, Syncope, Tingling, Weakness Psychiatric: Reports: No Symptoms - Patient Data Vitals - Most Recent: Last Vital Signs Temp 98.4 F 12/28/20 02:12 Pulse 81 12/28/20 02:12 Resp 18 12/28/20 02:12 BP 144/66 H 12/28/20 02:12 Pulse Ox 95 12/28/20 08:26 Weight - Most Recent: 307 lb 8 oz I&O - Last 24 hours: Intake & Output 12/27/20 12/28/20 12/28/20 22:59 06:59 14:59 Intake Total 880 300 Output Total 850 200 Balance 30 100 Lab Results - Last 24 hrs: Laboratory Results - last 24 hr 12/27/20 12/27/20 12/27/20 Range/Units 10:58 13:36 16:33 WBC (4.23-9.07) K/mm3 RBC (4.63-6.08) M/mm3 Hgb (13.7-17.5) gm/dl Hct (40.1-51.0) % MCV (79.0-92.2) fl MCH (25.7-32.2) pg MCHC (32.2-35.5) g/dl RDW Std Deviation (35.1-43.9) fL Plt Count (163-337) K/mm3 MPV (9.4-12.3) fl Neut % (Auto) (34.0-67.9) % Lymph % (Auto) (21.8-53.1) % [place] % (Auto) (5.3-12.2) % Eos % (Auto) (0.8-7.0) Baso % (Auto) (0.1-1.2) % Neut # (Auto) (1.78-5.38) K/mm3 Lymph # (Auto) (1.32-3.57) K/mm3 [place] # (Auto) (0.30-0.82) K/mm3 Eos # (Auto) (0.04-0.54) K/mm3 Baso # (Auto) (0.01-0.08) K/mm3 Manual Slide Review Puncture Site Rt radial ABG pH 7.36 (7.35-7.45) ABG pCO2 77.1 H* (35.0-45.0) mmHg ABG pO2 73.0 L (80.0-100.0) mmHg ABG HCO3 42.6 H (22.0-26.0) meq/L ABG O2 Saturation 93.1 L (96.0-97.0) % ABG Base Excess 13.2 H (-2-2.0) Naeem Test Positive A-a Gradient 59 mmHg O2 Delivery Device Nasal cannula Oxygen Flow Rate 3.0 FiO2 32.00 (21.00-100.00) % Sodium (136-145) mEq/L Potassium (3.5-5.1) mEq/L Chloride (98-107) mEq/L Carbon Dioxide (21-32) mEq/L Anion Gap (5-15) BUN (7-18) mg/dL Creatinine (0.7-1.3) mg/dL Est Cr Clr Drug Dosing mL/min Estimated GFR (MDRD) (>60) mL/min BUN/Creatinine Ratio (14-18) Glucose (70-99) mg/dL POC Glucose 271 H 258 H (70-99) mg/dL Calcium (8.5-10.1) mg/dL Magnesium (1.8-2.4) mg/dL C-Reactive Protein (<1.0) mg/dL 12/27/20 12/27/20 12/28/20 Range/Units 17:00 21:17 05:31 WBC 8.81 (4.23-9.07) K/mm3 RBC 5.60 (4.63-6.08) M/mm3 Hgb 13.7 (13.7-17.5) gm/dl Hct 49.3 (40.1-51.0) % MCV 88.0 (79.0-92.2) fl MCH 24.5 L (25.7-32.2) pg MCHC 27.8 L (32.2-35.5) g/dl RDW Std Deviation 53.9 H (35.1-43.9) fL Plt Count 218 (163-337) K/mm3 MPV 11.2 (9.4-12.3) fl Neut % (Auto) 73.8 H (34.0-67.9) % Lymph % (Auto) 12.4 L (21.8-53.1) % [place] % (Auto) 8.7 (5.3-12.2) % Eos % (Auto) 4.4 (0.8-7.0) Baso % (Auto) 0.6 (0.1-1.2) % Neut # (Auto) 6.50 H (1.78-5.38) K/mm3 Lymph # (Auto) 1.09 L (1.32-3.57) K/mm3 [place] # (Auto) 0.77 (0.30-0.82) K/mm3 Eos # (Auto) 0.39 (0.04-0.54) K/mm3 Baso # (Auto) 0.05 (0.01-0.08) K/mm3 Manual Slide Review Abnormal smear Puncture Site Rt radial ABG pH 7.38 (7.35-7.45) ABG pCO2 73.3 H* (35.0-45.0) mmHg ABG pO2 75.0 L (80.0-100.0) mmHg ABG HCO3 42.5 H (22.0-26.0) meq/L ABG O2 Saturation 94.3 L (96.0-97.0) % ABG Base Excess 13.9 H (-2-2.0) Naeem Test Positive A-a Gradient 62 mmHg O2 Delivery Device Bipap 18/13 Oxygen Flow Rate FiO2 32.00 (21.00-100.00) % Sodium (136-145) mEq/L Potassium (3.5-5.1) mEq/L Chloride (98-107) mEq/L Carbon Dioxide (21-32) mEq/L Anion Gap (5-15) BUN (7-18) mg/dL Creatinine (0.7-1.3) mg/dL Est Cr Clr Drug Dosing mL/min Estimated GFR (MDRD) (>60) mL/min BUN/Creatinine Ratio (14-18) Glucose (70-99) mg/dL POC Glucose 254 H (70-99) mg/dL Calcium (8.5-10.1) mg/dL Magnesium (1.8-2.4) mg/dL C-Reactive Protein (<1.0) mg/dL 12/28/20 12/28/20 Range/Units 05:31 06:08 WBC (4.23-9.07) K/mm3 RBC (4.63-6.08) M/mm3 Hgb (13.7-17.5) gm/dl Hct (40.1-51.0) % MCV (79.0-92.2) fl MCH (25.7-32.2) pg MCHC (32.2-35.5) g/dl RDW Std Deviation (35.1-43.9) fL Plt Count (163-337) K/mm3 MPV (9.4-12.3) fl Neut % (Auto) (34.0-67.9) % Lymph % (Auto) (21.8-53.1) % [place] % (Auto) (5.3-12.2) % Eos % (Auto) (0.8-7.0) Baso % (Auto) (0.1-1.2) % Neut # (Auto) (1.78-5.38) K/mm3 Lymph # (Auto) (1.32-3.57) K/mm3 [place] # (Auto) (0.30-0.82) K/mm3 Eos # (Auto) (0.04-0.54) K/mm3 Baso # (Auto) (0.01-0.08) K/mm3 Manual Slide Review Puncture Site ABG pH (7.35-7.45) ABG pCO2 (35.0-45.0) mmHg ABG pO2 (80.0-100.0) mmHg ABG HCO3 (22.0-26.0) meq/L ABG O2 Saturation (96.0-97.0) % ABG Base Excess (-2-2.0) Naeem Test A-a Gradient mmHg O2 Delivery Device Oxygen Flow Rate FiO2 (21.00-100.00) % Sodium 146 H (136-145) mEq/L Potassium 4.0 (3.5-5.1) mEq/L Chloride 101 (98-107) mEq/L Carbon Dioxide 40 H (21-32) mEq/L Anion Gap 9.0 (5-15) BUN 23 H (7-18) mg/dL Creatinine 0.8 (0.7-1.3) mg/dL Est Cr Clr Drug Dosing 101.04 mL/min Estimated GFR (MDRD) > 60 (>60) mL/min BUN/Creatinine Ratio 28.8 H (14-18) Glucose 199 H (70-99) mg/dL POC Glucose 219 H (70-99) mg/dL Calcium 8.7 (8.5-10.1) mg/dL Magnesium 1.9 (1.8-2.4) mg/dL C-Reactive Protein 4.0 H* (<1.0) mg/dL Med Orders - Current: Current Medications Acetaminophen (Acetaminophen 325 Mg Tab) 650 mg PO BID PRN PRN Reason: Pain Last Admin: 12/26/20 17:25 Dose: 650 mg Documented by: Albuterol/Ipratropium (Albuterol/Ipratropium 3.0-0.5 Mg/3 Ml Neb Soln) 3 ml INH Q6HRRT [facility] Last Admin: 12/28/20 08:23 Dose: 3 ml Documented by: Aspirin (Aspirin 81 Mg Tab.Ec) 81 mg PO DAILY [facility] Last Admin: 12/28/20 08:03 Dose: 81 mg Documented by: Atorvastatin Calcium (Atorvastatin 20 Mg Tab) 20 mg PO DAILY [facility] Last Admin: 12/28/20 08:03 Dose: 20 mg Documented by: Bisacodyl (Bisacodyl 10 Mg Supp) 10 mg RECTAL DAILY PRN PRN Reason: Constipation Furosemide (Furosemide 40 Mg/4 Ml Vial) 40 mg IVPUSH BIDDIURETIC [facility] Last Admin: 12/28/20 06:09 Dose: 40 mg Documented by: Gabapentin (Gabapentin 300 Mg Cap) 300 mg PO TID [facility] Last Admin: 12/28/20 08:02 Dose: 300 mg Documented by: Ceftriaxone Sodium 2 gm/ (Sodium Chloride) 100 mls @ 200 mls/hr IV Q24H [facility] Last Admin: 12/27/20 17:18 Dose: 200 mls/hr Documented by: Insulin Human Lispro (Insulin Lispro 100 Unit/Ml 10 Ml Vial) 0 unit SUBCUT QIDACANDBED [facility]; Protocol Last Admin: 12/28/20 08:01 Dose: 4 units Documented by: Lactulose (Lactulose Soln 10 Gm/15 Ml 30 Ml Ud Cup) 40 gm PO DAILY [facility] Last Admin: 12/28/20 08:02 Dose: 40 gm Documented by: Melatonin (Melatonin 3 Mg Tab) 3 mg PO BEDTIME [facility] Last Admin: 12/27/20 21:28 Dose: 3 mg Documented by: Metoprolol Succinate (Metoprolol Succinate 50 Mg Tab.Er) 50 mg PO QPM [facility] Last Admin: 12/27/20 17:18 Dose: 50 mg Documented by: Nystatin (Nystatin Topical Powder 15 Gm Bottle) 0 gm TOP QID PRN PRN Reason: Other Olanzapine (Olanzapine 5 Mg Tab) 20 mg PO QPM [facility] Last Admin: 12/27/20 17:19 Dose: 20 mg Documented by: Rivaroxaban (Rivaroxaban 10 Mg Tab) 20 mg PO QPM [facility] Last Admin: 12/27/20 17:18 Dose: 20 mg Documented by: Senna (Sennosides 8.6 Mg Tab) 17.2 mg PO BEDTIME PRN PRN Reason: Constipation Last Admin: 12/23/20 18:22 Dose: 17.2 mg Documented by: Sertraline HCl (Sertraline 25 Mg Tab) 75 mg PO BEDTIME [facility] Last Admin: 12/27/20 21:27 Dose: 75 mg Documented by: Tamsulosin HCl (Tamsulosin 0.4 Mg Cap.Er) 0.8 mg PO BEDTIME [facility] Last Admin: 12/27/20 21:29 Dose: 0.8 mg Documented by: Tramadol HCl (Tramadol 50 Mg Tab) 50 mg PO TID PRN PRN Reason: Pain Last Admin: 12/27/20 21:28 Dose: 50 mg Documented by: Discontinued Medications Furosemide (Furosemide 40 Mg Tab) 40 mg PO DAILY [facility] Furosemide (Furosemide 20 Mg Tab) 20 mg PO DAILY@1200 [facility] Furosemide (Furosemide 40 Mg/4 Ml Vial) 40 mg IVPUSH NOW ONE Stop: 12/23/20 16:16 Last Admin: 12/23/20 18:24 Dose: 40 mg Documented by: Clindamycin Phosphate 900 mg/ (Premix) 50 mls @ 100 mls/hr IV ONETIME ONE Stop: 12/23/20 11:17 Last Admin: 12/23/20 11:32 Dose: 100 mls/hr Documented by: Lactulose (Lactulose Soln 10 Gm/15 Ml 30 Ml Ud Cup) 40 gm PO QPM [facility] Last Admin: 12/26/20 17:05 Dose: 40 gm Documented by: Non-Formulary Medication (Acetaminophen) 500 mg PO QID [facility] Potassium Chloride (Potassium Chloride 20 Meq Tab.Er) 20 meq PO ONETIME ONE Stop: 12/25/20 13:00 Last Admin: 12/25/20 14:28 Dose: 20 meq Documented by: Sertraline HCl (Sertraline 50 Mg Tab) 50 mg PO BEDTIME [facility] - Exam Quality Assessment: Reports: Supplemental Oxygen (3L), DVT Prophylaxis. Denies: Urine Catheter General: Reports: Alert, Oriented, Cooperative, No Acute Distress HEENT: Reports: Pupils Equal, Pupils Reactive, Mucous Membr. Moist/[place] Neck: Reports: Supple, Trachea Midline Lungs: Reports: Clear to Auscultation, Normal Respiratory Effort, Decreased Breath Sounds Cardiovascular: Reports: Regular Rate, Regular Rhythm GI/Abdominal Exam: Normal Bowel Sounds, Soft, Non-Tender, No Distention (Male) Exam: Deferred Rectal (Males) Exam: Deferred Extremities: Normal Range of Motion, Non-Tender, Pedal Edema (1-2+), Redness (Chronic redness to anterior aspect of left lower extremity.), Other (Right below the knee amputee.) Skin: Reports: Warm, Dry, Intact Wound/Incisions: Reports: Healing Well, No Drainage, Erythema Improving, Other (Abdominal cellulitis greatly improved) Neurological: Reports: No New Focal Deficit Psy/Mental Status: Reports: Alert, Normal Affect, Normal Mood <Kal Butler Jr - Last Filed: 12/28/20 16:45> Discharge Summary - Referral to Home Health Primary Care Physician: Abisai Lloyd MD - Patient Summary/Data Consults: Consultations 12/23/20 16:04 OT Evaluation and Treatment [CONS] Routine PT Evaluation and Treatment [CONS] Routine Respiratory Care Assess and Treatment [CONS] Routine 12/23/20 17:07 Consult to Employee Representative [CONS] Routine - Discharge Summary/Plan Comment Discharge Summary/Plan Comment: Case discussed in full. Agree with evaluation, assessment and plan. - Patient Data Vitals - Most Recent: Last Vital Signs Temp 97.9 F 12/28/20 07:58 Pulse 80 12/28/20 07:58 Resp 19 12/28/20 07:58 BP 141/76 H 12/28/20 07:58 Pulse Ox 95 12/28/20 08:26 I&O - Last 24 hours: Intake & Output 12/28/20 12/28/20 12/28/20 06:59 14:59 22:59 Intake Total 300 300 0 Output Total 200 1250 Balance 100 -950 0 Lab Results - Last 24 hrs: Laboratory Results - last 24 hr 12/27/20 12/27/20 12/28/20 Range/Units 17:00 21:17 05:31 WBC 8.81 (4.23-9.07) K/mm3 RBC 5.60 (4.63-6.08) M/mm3 Hgb 13.7 (13.7-17.5) gm/dl Hct 49.3 (40.1-51.0) % MCV 88.0 (79.0-92.2) fl MCH 24.5 L (25.7-32.2) pg MCHC 27.8 L (32.2-35.5) g/dl RDW Std Deviation 53.9 H (35.1-43.9) fL Plt Count 218 (163-337) K/mm3 MPV 11.2 (9.4-12.3) fl Neut % (Auto) 73.8 H (34.0-67.9) % Lymph % (Auto) 12.4 L (21.8-53.1) % [place] % (Auto) 8.7 (5.3-12.2) % Eos % (Auto) 4.4 (0.8-7.0) Baso % (Auto) 0.6 (0.1-1.2) % Neut # (Auto) 6.50 H (1.78-5.38) K/mm3 Lymph # (Auto) 1.09 L (1.32-3.57) K/mm3 [place] # (Auto) 0.77 (0.30-0.82) K/mm3 Eos # (Auto) 0.39 (0.04-0.54) K/mm3 Baso # (Auto) 0.05 (0.01-0.08) K/mm3 Manual Slide Review Abnormal smear Puncture Site Rt radial ABG pH 7.38 (7.35-7.45) ABG pCO2 73.3 H* (35.0-45.0) mmHg ABG pO2 75.0 L (80.0-100.0) mmHg ABG HCO3 42.5 H (22.0-26.0) meq/L ABG O2 Saturation 94.3 L (96.0-97.0) % ABG Base Excess 13.9 H (-2-2.0) Naeem Test Positive A-a Gradient 62 mmHg O2 Delivery Device Bipap 18/13 FiO2 32.00 (21.00-100.00) % Sodium (136-145) mEq/L Potassium (3.5-5.1) mEq/L Chloride (98-107) mEq/L Carbon Dioxide (21-32) mEq/L Anion Gap (5-15) BUN (7-18) mg/dL Creatinine (0.7-1.3) mg/dL Est Cr Clr Drug Dosing mL/min Estimated GFR (MDRD) (>60) mL/min BUN/Creatinine Ratio (14-18) Glucose (70-99) mg/dL POC Glucose 254 H (70-99) mg/dL Calcium (8.5-10.1) mg/dL Magnesium (1.8-2.4) mg/dL C-Reactive Protein (<1.0) mg/dL SARS-CoV-2 RNA ([facility]SELMO) (NEGATIVE) 12/28/20 12/28/20 12/28/20 Range/Units 05:31 06:08 09:34 WBC (4.23-9.07) K/mm3 RBC (4.63-6.08) M/mm3 Hgb (13.7-17.5) gm/dl Hct (40.1-51.0) % MCV (79.0-92.2) fl MCH (25.7-32.2) pg MCHC (32.2-35.5) g/dl RDW Std Deviation (35.1-43.9) fL Plt Count (163-337) K/mm3 MPV (9.4-12.3) fl Neut % (Auto) (34.0-67.9) % Lymph % (Auto) (21.8-53.1) % [place] % (Auto) (5.3-12.2) % Eos % (Auto) (0.8-7.0) Baso % (Auto) (0.1-1.2) % Neut # (Auto) (1.78-5.38) K/mm3 Lymph # (Auto) (1.32-3.57) K/mm3 [place] # (Auto) (0.30-0.82) K/mm3 Eos # (Auto) (0.04-0.54) K/mm3 Baso # (Auto) (0.01-0.08) K/mm3 Manual Slide Review Puncture Site ABG pH (7.35-7.45) ABG pCO2 (35.0-45.0) mmHg ABG pO2 (80.0-100.0) mmHg ABG HCO3 (22.0-26.0) meq/L ABG O2 Saturation (96.0-97.0) % ABG Base Excess (-2-2.0) Naeem Test A-a Gradient mmHg O2 Delivery Device FiO2 (21.00-100.00) % Sodium 146 H (136-145) mEq/L Potassium 4.0 (3.5-5.1) mEq/L Chloride 101 (98-107) mEq/L Carbon Dioxide 40 H (21-32) mEq/L Anion Gap 9.0 (5-15) BUN 23 H (7-18) mg/dL Creatinine 0.8 (0.7-1.3) mg/dL Est Cr Clr Drug Dosing 101.04 mL/min Estimated GFR (MDRD) > 60 (>60) mL/min BUN/Creatinine Ratio 28.8 H (14-18) Glucose 199 H (70-99) mg/dL POC Glucose 219 H (70-99) mg/dL Calcium 8.7 (8.5-10.1) mg/dL Magnesium 1.9 (1.8-2.4) mg/dL C-Reactive Protein 4.0 H* (<1.0) mg/dL SARS-CoV-2 RNA ([facility]) Negative (NEGATIVE) 12/28/20 Range/Units 11:28 WBC (4.23-9.07) K/mm3 RBC (4.63-6.08) M/mm3 Hgb (13.7-17.5) gm/dl Hct (40.1-51.0) % MCV (79.0-92.2) fl MCH (25.7-32.2) pg MCHC (32.2-35.5) g/dl RDW Std Deviation (35.1-43.9) fL Plt Count (163-337) K/mm3 MPV (9.4-12.3) fl Neut % (Auto) (34.0-67.9) % Lymph % (Auto) (21.8-53.1) % [place] % (Auto) (5.3-12.2) % Eos % (Auto) (0.8-7.0) Baso % (Auto) (0.1-1.2) % Neut # (Auto) (1.78-5.38) K/mm3 Lymph # (Auto) (1.32-3.57) K/mm3 [place] # (Auto) (0.30-0.82) K/mm3 Eos # (Auto) (0.04-0.54) K/mm3 Baso # (Auto) (0.01-0.08) K/mm3 Manual Slide Review Puncture Site ABG pH (7.35-7.45) ABG pCO2 (35.0-45.0) mmHg ABG pO2 (80.0-100.0) mmHg ABG HCO3 (22.0-26.0) meq/L ABG O2 Saturation (96.0-97.0) % ABG Base Excess (-2-2.0) Naeem Test A-a Gradient mmHg O2 Delivery Device FiO2 (21.00-100.00) % Sodium (136-145) mEq/L Potassium (3.5-5.1) mEq/L Chloride (98-107) mEq/L Carbon Dioxide (21-32) mEq/L Anion Gap (5-15) BUN (7-18) mg/dL Creatinine (0.7-1.3) mg/dL Est Cr Clr Drug Dosing mL/min Estimated GFR (MDRD) (>60) mL/min BUN/Creatinine Ratio (14-18) Glucose (70-99) mg/dL POC Glucose 262 H (70-99) mg/dL Calcium (8.5-10.1) mg/dL Magnesium (1.8-2.4) mg/dL C-Reactive Protein (<1.0) mg/dL SARS-CoV-2 RNA ([facility]) (NEGATIVE) Med Orders - Current: Current Medications Discontinued Medications Acetaminophen (Acetaminophen 325 Mg Tab) 650 mg PO BID PRN PRN Reason: Pain Last Admin: 12/26/20 17:25 Dose: 650 mg Documented by: Albuterol/Ipratropium (Albuterol/Ipratropium 3.0-0.5 Mg/3 Ml Neb Soln) 3 ml INH Q6HRRT [facility] Last Admin: 12/28/20 08:23 Dose: 3 ml Documented by: Aspirin (Aspirin 81 Mg Tab.Ec) 81 mg PO DAILY [facility] Last Admin: 12/28/20 08:03 Dose: 81 mg Documented by: Atorvastatin Calcium (Atorvastatin 20 Mg Tab) 20 mg PO DAILY [facility] Last Admin: 12/28/20 08:03 Dose: 20 mg Documented by: Bisacodyl (Bisacodyl 10 Mg Supp) 10 mg RECTAL DAILY PRN PRN Reason: Constipation Furosemide (Furosemide 40 Mg Tab) 40 mg PO DAILY [facility] Furosemide (Furosemide 20 Mg Tab) 20 mg PO DAILY@1200 [facility] Furosemide (Furosemide 40 Mg/4 Ml Vial) 40 mg IVPUSH NOW ONE Stop: 12/23/20 16:16 Last Admin: 12/23/20 18:24 Dose: 40 mg Documented by: Furosemide (Furosemide 40 Mg/4 Ml Vial) 40 mg IVPUSH BIDDIURETIC [facility] Last Admin: 12/28/20 06:09 Dose: 40 mg Documented by: Gabapentin (Gabapentin 300 Mg Cap) 300 mg PO TID [facility] Last Admin: 12/28/20 08:02 Dose: 300 mg Documented by: Clindamycin Phosphate 900 mg/ (Premix) 50 mls @ 100 mls/hr IV ONETIME ONE Stop: 12/23/20 11:17 Last Admin: 12/23/20 11:32 Dose: 100 mls/hr Documented by: Ceftriaxone Sodium 2 gm/ (Sodium Chloride) 100 mls @ 200 mls/hr IV Q24H [facility] Last Admin: 12/27/20 17:18 Dose: 200 mls/hr Documented by: Insulin Human Lispro (Insulin Lispro 100 Unit/Ml 10 Ml Vial) 0 unit SUBCUT QIDACANDBED [facility]; Protocol Last Admin: 12/28/20 12:06 Dose: 6 units Documented by: Lactulose (Lactulose Soln 10 Gm/15 Ml 30 Ml Ud Cup) 40 gm PO QPM [facility] Last Admin: 12/26/20 17:05 Dose: 40 gm Documented by: Lactulose (Lactulose Soln 10 Gm/15 Ml 30 Ml Ud Cup) 40 gm PO DAILY [facility] Last Admin: 12/28/20 08:02 Dose: 40 gm Documented by: Melatonin (Melatonin 3 Mg Tab) 3 mg PO BEDTIME [facility] Last Admin: 12/27/20 21:28 Dose: 3 mg Documented by: Metoprolol Succinate (Metoprolol Succinate 50 Mg Tab.Er) 50 mg PO QPM [facility] Last Admin: 12/27/20 17:18 Dose: 50 mg Documented by: Non-Formulary Medication (Acetaminophen) 500 mg PO QID [facility] Nystatin (Nystatin Topical Powder 15 Gm Bottle) 0 gm TOP QID PRN PRN Reason: Other Olanzapine (Olanzapine 5 Mg Tab) 20 mg PO QPM [facility] Last Admin: 12/27/20 17:19 Dose: 20 mg Documented by: Potassium Chloride (Potassium Chloride 20 Meq Tab.Er) 20 meq PO ONETIME ONE Stop: 12/25/20 13:00 Last Admin: 12/25/20 14:28 Dose: 20 meq Documented by: Rivaroxaban (Rivaroxaban 10 Mg Tab) 20 mg PO QPM [facility] Last Admin: 12/27/20 17:18 Dose: 20 mg Documented by: Senna (Sennosides 8.6 Mg Tab) 17.2 mg PO BEDTIME PRN PRN Reason: Constipation Last Admin: 12/23/20 18:22 Dose: 17.2 mg Documented by: Sertraline HCl (Sertraline 25 Mg Tab) 75 mg PO BEDTIME [facility] Last Admin: 12/27/20 21:27 Dose: 75 mg Documented by: Sertraline HCl (Sertraline 50 Mg Tab) 50 mg PO BEDTIME [facility] Tamsulosin HCl (Tamsulosin 0.4 Mg Cap.Er) 0.8 mg PO BEDTIME [facility] Last Admin: 12/27/20 21:29 Dose: 0.8 mg Documented by: Tramadol HCl (Tramadol 50 Mg Tab) 50 mg PO TID PRN PRN Reason: Pain Last Admin: 12/27/20 21:28 Dose: 50 mg Documented by:
[2020-12-28 09:01] VITALS: BP 141/76; PULSE 80
== END 2020-12-28 12:55 | DRG 602 ==
LOC: JD.ED 10:08 → JD.MS 14:12
PROVIDERS: ADMIT Hospitalist; ATTEND Hospitalist
DX: L03.311 Cellulitis of abdominal wall (principal); I50.23 Acute on chronic systolic (congestive) heart failure; I13.0 Hypertensive heart and chronic kidney disease with heart failure and stage 1 through stage 4 chronic kidney disease, or unspecified chronic kidney disease; Z68.41 Body mass index [BMI] 40.0-44.9, adult; E87.2 Acidosis; I42.9 Cardiomyopathy, unspecified; I73.9 Peripheral vascular disease, unspecified; R60.9 Edema, unspecified; E11.65 Type 2 diabetes mellitus with hyperglycemia; I48.91 Unspecified atrial fibrillation; I50.9 Heart failure, unspecified; E78.00 Pure hypercholesterolemia, unspecified; G47.30 Sleep apnea, unspecified; G89.29 Other chronic pain; M1A.9XX0 Chronic gout, unspecified, without tophus (tophi); F32.89 Other specified depressive episodes; G47.00 Insomnia, unspecified; F19.11 Other psychoactive substance abuse, in remission; F11.29 Opioid dependence with unspecified opioid-induced disorder; M96.1 Postlaminectomy syndrome, not elsewhere classified; E66.01 Morbid (severe) obesity due to excess calories; E03.9 Hypothyroidism, unspecified; Z86.16 Personal history of COVID-19; Z79.01 Long term (current) use of anticoagulants; Z79.82 Long term (current) use of aspirin; Z79.899 Other long term (current) drug therapy; R06.89 Other abnormalities of breathing; E78.5 Hyperlipidemia, unspecified; E83.42 Hypomagnesemia; N40.0 Benign prostatic hyperplasia without lower urinary tract symptoms; J44.9 Chronic obstructive pulmonary disease, unspecified; Z20.822 Contact with and (suspected) exposure to COVID-19; M54.9 Dorsalgia, unspecified; G43.709 Chronic migraine without aura, not intractable, without status migrainosus; G47.33 Obstructive sleep apnea (adult) (pediatric); I48.0 Paroxysmal atrial fibrillation; I25.10 Atherosclerotic heart disease of native coronary artery without angina pectoris; K21.9 Gastro-esophageal reflux disease without esophagitis; E11.22 Type 2 diabetes mellitus with diabetic chronic kidney disease; N18.9 Chronic kidney disease, unspecified; Z79.4 Long term (current) use of insulin; Z86.39 Personal history of other endocrine, nutritional and metabolic disease; Z89.511 Acquired absence of right leg below knee; Z86.73 Personal history of transient ischemic attack (TIA), and cerebral infarction without residual deficits; I25.2 Old myocardial infarction; Z86.718 Personal history of other venous thrombosis and embolism; Z78.9 Other specified health status; Z86.69 Personal history of other diseases of the nervous system and sense organs; Z91.19 Patient's noncompliance with other medical treatment and regimen; I65.22 Occlusion and stenosis of left carotid artery
CPT/HCPCS: 36415; 36600; 71045; 71045-26; 74176; 74176-26; 80048; 80053; 80307; 81001; 82803; 82947; 83036; 83605; 83690; 83735; 83880; 84484; 85007; 85025; 85027; 85610; 85652; 85730; 86140; 87040; 87641; 93005; 93010; 93306; 94640; 94660; 94760; 94761; 96365; 97162-GP; 99223; 99232; 99239; 99285; 99285-25; A9270-GY; J0696; J1815-GY; J1940; J3490; J7620-GY; U0002

== ENCOUNTER 2021-12-29 11:15 | Inpatient (IN) | payer MEDICARE, MEDICAID ==
[2021-12-29] MEDS ORDERED: Sodium Chloride 0.9% 10 ML Syringe FLUSH PRN (11:39)
[2021-12-29] MEDS ORDERED: methylPREDNISolone Sodium Succinate 125 MG/2 ML SDV IVPUSH ONE (11:40)
[2021-12-29] MEDS ORDERED: Albuterol/Ipratropium 3.0-0.5 MG/3 ML Neb Soln NEB ONE (11:40)
[2021-12-29 13:04] LABS: ESTIMATED GFR 31 mL/min (>60)
[2021-12-29] MEDS ORDERED: cefTRIAXone 2 GM in Sodium Chloride 0.9% 100 ML IV ONE (13:47)
[2021-12-29] MEDS ORDERED: Magnesium Sulfate/Water 2 GM in Premix Bag 1 BAG IV ONE (14:52)
[2021-12-29] MEDS ORDERED: Sodium Chloride 0.9% 1,000 ML IV SCH ×2 (15:00→22:15)
[2021-12-29] MEDS ORDERED: Albuterol 0.083% 2.5 MG/3 ML Neb Soln NEB PRN (15:53)
[2021-12-29] MEDS ORDERED: Docusate Sodium 100 MG Cap PO PRN (15:53)
[2021-12-29] MEDS ORDERED: Ondansetron 4 MG/2 ML SDV IV PRN (15:53)
[2021-12-29] MEDS: Albuterol/Ipratropium 3.0-0.5 MG/3 ML Neb Soln NEB SCH ×2 (16:11→21:21)
[2021-12-29] MEDS ORDERED: Cyclobenzaprine 10 MG Tab PO PRN (16:30)
[2021-12-29] MEDS ORDERED: Bisacodyl 10 MG Supp RECTAL PRN (16:30)
[2021-12-29] MEDS ORDERED: traMADol 50 MG Tab PO PRN (16:30)
[2021-12-29] MEDS: Metoprolol Succinate 50 MG Tab.ER PO SCH (18:16)
[2021-12-29] MEDS: Rivaroxaban 10 MG Tab PO SCH (18:18)
[2021-12-29] MEDS: guaiFENesin 600 MG Tab.ER PO SCH ×2 (18:19→21:04)
[2021-12-29] MEDS: Azithromycin 500 MG in Sodium Chloride 0.9% 250 ML IV SCH (18:20)
[2021-12-29] MEDS: Insulin Lispro 100 Unit/ML 3 ML KwikPen SUBCUT SCH ×2 (18:22→21:08)
[2021-12-29] MEDS: Lactulose Soln 10 GM/15 ML 30 ML UD Cup PO SCH (18:32)
[2021-12-29] MEDS: Acetaminophen 325 MG Tab PO PRN (21:04)
[2021-12-29] MEDS: Sertraline 25 MG Tab PO SCH (21:04)
[2021-12-29] MEDS: atorvaSTATin 20 MG Tab PO SCH (21:05)
[2021-12-29] MEDS: Melatonin 3 MG Tab PO SCH (21:05)
[2021-12-29] MEDS: Sertraline 50 MG Tab PO SCH (21:05)
[2021-12-29] MEDS: Montelukast 10 MG Tab PO SCH (21:05)
[2021-12-29] MEDS: Tamsulosin 0.4 MG Cap.ER PO SCH (21:05)
[2021-12-29] MEDS: Insulin Glargine,Human Rec. Analog 100 Units/ML 3 ML Pen SUBCUT SCH (21:10)
[2021-12-29] MEDS: Mometasone Furoate HFA 200 mcg/Puff 13 GM Inhaler INH SCH (21:21)
[2021-12-29] MEDS: Acetaminophen/HYDROcodone 325-5 MG Tab PO PRN (23:54)
[2021-12-30] MEDS: Albuterol/Ipratropium 3.0-0.5 MG/3 ML Neb Soln NEB SCH ×4 (05:20→20:34)
[2021-12-30] MEDS: Insulin Lispro 100 Unit/ML 3 ML KwikPen SUBCUT SCH ×4 (06:46→21:32)
[2021-12-30] MEDS: Pantoprazole 40 MG Tab.CR PO SCH (06:46)
[2021-12-30] MEDS ORDERED: Lactated Ringers 1,000 ML IV SCH (08:15)
[2021-12-30] MEDS: Mometasone Furoate HFA 200 mcg/Puff 13 GM Inhaler INH SCH ×2 (08:59→20:34)
[2021-12-30] MEDS ORDERED: Mometasone Furoate HFA 100mcg/Puff 13 GM Inhaler INH SCH (09:00)
[2021-12-30] MEDS ORDERED: Diclofenac Sodium 1% Gel 100 GM Tube TOP PRN (09:00)
[2021-12-30] MEDS: Insulin Glargine,Human Rec. Analog 100 Units/ML 3 ML Pen SUBCUT SCH ×2 (09:46→21:30)
[2021-12-30] MEDS: OLANZapine 5 MG Tab PO SCH (09:47)
[2021-12-30] MEDS: guaiFENesin 600 MG Tab.ER PO SCH ×2 (09:47→21:18)
[2021-12-30] MEDS: Aspirin 81 MG Tab.EC PO SCH (09:47)
[2021-12-30] MEDS: Allopurinol 100 MG Tab PO SCH (09:48)
[2021-12-30] MEDS: Gabapentin 300 MG Cap PO SCH ×3 (09:48→21:18)
[2021-12-30] MEDS: Cholecalciferol (Vitamin D3) 25 MCG Tab PO SCH (09:48)
[2021-12-30] MEDS: Lidocaine 4% 1 each Patch TOP SCH (10:15)
[2021-12-30] MEDS: cefTRIAXone 2 GM in Sodium Chloride 0.9% 100 ML IV SCH (14:37)
[2021-12-30] MEDS: Azithromycin 500 MG in Sodium Chloride 0.9% 250 ML IV SCH (17:32)
[2021-12-30] MEDS: Metoprolol Succinate 50 MG Tab.ER PO SCH (17:34)
[2021-12-30] MEDS: Rivaroxaban 10 MG Tab PO SCH (17:34)
[2021-12-30] MEDS: Acetaminophen/HYDROcodone 325-5 MG Tab PO PRN (17:35)
[2021-12-30] MEDS: Lactulose Soln 10 GM/15 ML 30 ML UD Cup PO SCH (17:35)
[2021-12-30] MEDS: Sertraline 25 MG Tab PO SCH (21:16)
[2021-12-30] MEDS: Sertraline 50 MG Tab PO SCH (21:16)
[2021-12-30] MEDS: Melatonin 3 MG Tab PO SCH (21:17)
[2021-12-30] MEDS: Tamsulosin 0.4 MG Cap.ER PO SCH (21:17)
[2021-12-30] MEDS: atorvaSTATin 20 MG Tab PO SCH (21:17)
[2021-12-30] MEDS: Montelukast 10 MG Tab PO SCH (21:18)
[2021-12-31] MEDS: Albuterol/Ipratropium 3.0-0.5 MG/3 ML Neb Soln NEB SCH ×4 (05:32→20:29)
[2021-12-31] MEDS: Pantoprazole 40 MG Tab.CR PO SCH (07:27)
[2021-12-31] MEDS: Insulin Glargine,Human Rec. Analog 100 Units/ML 3 ML Pen SUBCUT SCH ×2 (08:52→21:20)
[2021-12-31] MEDS: Insulin Lispro 100 Unit/ML 3 ML KwikPen SUBCUT SCH ×4 (08:52→21:29)
[2021-12-31] MEDS: Aspirin 81 MG Tab.EC PO SCH (08:55)
[2021-12-31] MEDS: guaiFENesin 600 MG Tab.ER PO SCH ×2 (08:56→21:08)
[2021-12-31] MEDS: Allopurinol 100 MG Tab PO SCH (08:56)
[2021-12-31] MEDS: Cholecalciferol (Vitamin D3) 25 MCG Tab PO SCH (08:56)
[2021-12-31] MEDS: OLANZapine 5 MG Tab PO SCH (08:57)
[2021-12-31] MEDS: Gabapentin 300 MG Cap PO SCH ×3 (08:57→21:08)
[2021-12-31] MEDS: Lidocaine 4% 1 each Patch TOP SCH (08:59)
[2021-12-31] MEDS: Mometasone Furoate HFA 200 mcg/Puff 13 GM Inhaler INH SCH ×2 (09:24→20:43)
[2021-12-31] MEDS: Acetaminophen/HYDROcodone 325-5 MG Tab PO PRN ×2 (10:57→21:16)
[2021-12-31] MEDS: cefTRIAXone 2 GM in Sodium Chloride 0.9% 100 ML IV SCH (15:24)
[2021-12-31] MEDS: Azithromycin 500 MG in Sodium Chloride 0.9% 250 ML IV SCH (17:12)
[2021-12-31] MEDS: Metoprolol Succinate 50 MG Tab.ER PO SCH (17:15)
[2021-12-31] MEDS: Rivaroxaban 10 MG Tab PO SCH (17:16)
[2021-12-31] MEDS: Lactulose Soln 10 GM/15 ML 30 ML UD Cup PO SCH (17:17)
[2021-12-31] MEDS: atorvaSTATin 20 MG Tab PO SCH (21:08)
[2021-12-31] MEDS: Montelukast 10 MG Tab PO SCH (21:08)
[2021-12-31] MEDS: Sertraline 50 MG Tab PO SCH (21:14)
[2021-12-31] MEDS: Tamsulosin 0.4 MG Cap.ER PO SCH (21:14)
[2021-12-31] MEDS: Melatonin 3 MG Tab PO SCH (21:15)
[2021-12-31] MEDS: Acetaminophen 325 MG Tab PO PRN (21:15)
[2021-12-31] MEDS: Sertraline 25 MG Tab PO SCH (21:15)
[2022-01-01] MEDS: Pantoprazole 40 MG Tab.CR PO SCH ×2 (04:56→07:48)
[2022-01-01] MEDS: Acetaminophen/HYDROcodone 325-5 MG Tab PO PRN ×2 (05:00→20:46)
[2022-01-01] MEDS: Albuterol/Ipratropium 3.0-0.5 MG/3 ML Neb Soln NEB SCH ×4 (05:23→21:14)
[2022-01-01] MEDS ORDERED: Magnesium Sulfate/Water 2 GM in Premix Bag 1 BAG IV ONE (08:30)
[2022-01-01] MEDS: Aspirin 81 MG Tab.EC PO SCH (09:04)
[2022-01-01] MEDS: Lidocaine 4% 1 each Patch TOP SCH (09:04)
[2022-01-01] MEDS: Gabapentin 300 MG Cap PO SCH ×3 (09:04→20:45)
[2022-01-01] MEDS: Cholecalciferol (Vitamin D3) 25 MCG Tab PO SCH (09:04)
[2022-01-01] MEDS: Allopurinol 100 MG Tab PO SCH (09:04)
[2022-01-01] MEDS: guaiFENesin 600 MG Tab.ER PO SCH ×2 (09:04→20:45)
[2022-01-01] MEDS: OLANZapine 5 MG Tab PO SCH (09:04)
[2022-01-01] MEDS: Insulin Glargine,Human Rec. Analog 100 Units/ML 3 ML Pen SUBCUT SCH ×2 (09:07→20:57)
[2022-01-01] MEDS: Insulin Lispro 100 Unit/ML 3 ML KwikPen SUBCUT SCH ×4 (09:08→21:06)
[2022-01-01] MEDS ORDERED: Furosemide 40 MG/4 ML VIAL IVPUSH ONE (09:15)
[2022-01-01] MEDS: Mometasone Furoate HFA 200 mcg/Puff 13 GM Inhaler INH SCH ×2 (09:59→21:14)
[2022-01-01] MEDS: Acetaminophen 325 MG Tab PO PRN (11:23)
[2022-01-01] MEDS: Furosemide 40 MG Tab PO SCH (14:50)
[2022-01-01] MEDS: cefTRIAXone 2 GM in Sodium Chloride 0.9% 100 ML IV SCH (14:51)
[2022-01-01] MEDS: Rivaroxaban 10 MG Tab PO SCH (17:21)
[2022-01-01] MEDS: Metoprolol Succinate 50 MG Tab.ER PO SCH (17:21)
[2022-01-01] MEDS: Azithromycin 500 MG in Sodium Chloride 0.9% 250 ML IV SCH (17:21)
[2022-01-01] MEDS: Lactulose Soln 10 GM/15 ML 30 ML UD Cup PO SCH (17:21)
[2022-01-01] MEDS: Sertraline 50 MG Tab PO SCH (20:45)
[2022-01-01] MEDS: Sertraline 25 MG Tab PO SCH (20:45)
[2022-01-01] MEDS: Melatonin 3 MG Tab PO SCH (20:45)
[2022-01-01] MEDS: atorvaSTATin 20 MG Tab PO SCH (20:45)
[2022-01-01] MEDS: Montelukast 10 MG Tab PO SCH (20:45)
[2022-01-01] MEDS: Tamsulosin 0.4 MG Cap.ER PO SCH (20:46)
[2022-01-02] MEDS: Furosemide 40 MG Tab PO SCH ×3 (04:57→13:14)
[2022-01-02] MEDS: Pantoprazole 40 MG Tab.CR PO SCH ×2 (04:57→07:53)
[2022-01-02] MEDS: Albuterol/Ipratropium 3.0-0.5 MG/3 ML Neb Soln NEB SCH ×4 (05:44→20:04)
[2022-01-02] MEDS: Cholecalciferol (Vitamin D3) 25 MCG Tab PO SCH (08:43)
[2022-01-02] MEDS: Gabapentin 300 MG Cap PO SCH ×3 (08:43→21:11)
[2022-01-02] MEDS: guaiFENesin 600 MG Tab.ER PO SCH ×2 (08:43→21:12)
[2022-01-02] MEDS: Allopurinol 100 MG Tab PO SCH (08:43)
[2022-01-02] MEDS: Aspirin 81 MG Tab.EC PO SCH (08:43)
[2022-01-02] MEDS: Insulin Lispro 100 Unit/ML 3 ML KwikPen SUBCUT SCH ×4 (08:43→21:10)
[2022-01-02] MEDS: OLANZapine 5 MG Tab PO SCH (08:43)
[2022-01-02] MEDS: Insulin Glargine,Human Rec. Analog 100 Units/ML 3 ML Pen SUBCUT SCH ×2 (08:44→21:09)
[2022-01-02] MEDS: Meropenem Premix 500 MG in Premix Bag 1 BAG IV SCH ×3 (08:45→21:05)
[2022-01-02] MEDS: Mometasone Furoate HFA 200 mcg/Puff 13 GM Inhaler INH SCH ×2 (09:03→20:04)
[2022-01-02] MEDS: Potassium Chloride 20 MEQ Tab.ER PO SCH ×2 (11:03→21:12)
[2022-01-02] MEDS: Lidocaine 4% 1 each Patch TOP SCH (11:04)
[2022-01-02] MEDS: Acetaminophen/HYDROcodone 325-5 MG Tab PO PRN (13:13)
[2022-01-02] MEDS: Rivaroxaban 10 MG Tab PO SCH (17:49)
[2022-01-02] MEDS: Lactulose Soln 10 GM/15 ML 30 ML UD Cup PO SCH (17:50)
[2022-01-02] MEDS: Metoprolol Succinate 50 MG Tab.ER PO SCH (17:51)
[2022-01-02] MEDS: atorvaSTATin 20 MG Tab PO SCH (21:11)
[2022-01-02] MEDS: Melatonin 3 MG Tab PO SCH (21:11)
[2022-01-02] MEDS: Tamsulosin 0.4 MG Cap.ER PO SCH (21:11)
[2022-01-02] MEDS: Sertraline 50 MG Tab PO SCH (21:12)
[2022-01-02] MEDS: Sertraline 25 MG Tab PO SCH (21:12)
[2022-01-02] MEDS: Montelukast 10 MG Tab PO SCH (21:12)
[2022-01-03] MEDS: Acetaminophen/HYDROcodone 325-5 MG Tab PO PRN (02:38)
[2022-01-03] MEDS: Meropenem Premix 500 MG in Premix Bag 1 BAG IV SCH ×2 (02:39→08:16)
[2022-01-03] MEDS: Albuterol/Ipratropium 3.0-0.5 MG/3 ML Neb Soln NEB SCH ×2 (05:54→08:59)
[2022-01-03] MEDS: Pantoprazole 40 MG Tab.CR PO SCH (06:53)
[2022-01-03] MEDS: Furosemide 40 MG Tab PO SCH (06:53)
[2022-01-03] MEDS: Lidocaine 4% 1 each Patch TOP SCH (08:16)
[2022-01-03] MEDS: Insulin Lispro 100 Unit/ML 3 ML KwikPen SUBCUT SCH ×2 (08:17→11:30)
[2022-01-03] MEDS: Potassium Chloride 20 MEQ Tab.ER PO SCH (08:19)
[2022-01-03] MEDS: Gabapentin 300 MG Cap PO SCH (08:19)
[2022-01-03] MEDS: Insulin Glargine,Human Rec. Analog 100 Units/ML 3 ML Pen SUBCUT SCH (08:19)
[2022-01-03] MEDS: Aspirin 81 MG Tab.EC PO SCH (08:19)
[2022-01-03] MEDS: OLANZapine 5 MG Tab PO SCH (08:19)
[2022-01-03] MEDS: Cholecalciferol (Vitamin D3) 25 MCG Tab PO SCH (08:19)
[2022-01-03] MEDS: guaiFENesin 600 MG Tab.ER PO SCH (08:19)
[2022-01-03] MEDS: Allopurinol 100 MG Tab PO SCH (08:19)
[2022-01-03] MEDS: Mometasone Furoate HFA 200 mcg/Puff 13 GM Inhaler INH SCH (08:59)
[2022-01-03] MEDS ORDERED: Magnesium Sulfate/Water 2 GM in Premix Bag 1 BAG IV ONE (09:00)
[2022-01-03 12:17] VITALS: BP 149/78; PULSE 68
[2022-01-04] MEDS ORDERED: Magnesium Oxide 400 MG Tab PO SCH (09:00)
== END 2022-01-03 13:20 | DRG 871 ==
LOC: JD.ED 11:15 → JD.MS 14:46
PROVIDERS: ADMIT Internal Medicine; ATTEND Internal Medicine
DX: A41.9 Sepsis, unspecified organism (principal); J18.9 Pneumonia, unspecified organism; R09.02 Hypoxemia; I48.91 Unspecified atrial fibrillation; J96.21 Acute and chronic respiratory failure with hypoxia; I13.10 Hypertensive heart and chronic kidney disease without heart failure, with stage 1 through stage 4 chronic kidney disease, or unspecified chronic kidney disease; N18.9 Chronic kidney disease, unspecified; I50.9 Heart failure, unspecified; I50.23 Acute on chronic systolic (congestive) heart failure; Z95.5 Presence of coronary angioplasty implant and graft; E78.00 Pure hypercholesterolemia, unspecified; N17.9 Acute kidney failure, unspecified; G47.30 Sleep apnea, unspecified; J44.0 Chronic obstructive pulmonary disease with (acute) lower respiratory infection; I42.9 Cardiomyopathy, unspecified; I13.0 Hypertensive heart and chronic kidney disease with heart failure and stage 1 through stage 4 chronic kidney disease, or unspecified chronic kidney disease; M10.9 Gout, unspecified; E03.9 Hypothyroidism, unspecified; Z20.822 Contact with and (suspected) exposure to COVID-19; E66.01 Morbid (severe) obesity due to excess calories; E83.42 Hypomagnesemia; N40.0 Benign prostatic hyperplasia without lower urinary tract symptoms; N18.31 Chronic kidney disease, stage 3a; M54.40 Lumbago with sciatica, unspecified side; G43.709 Chronic migraine without aura, not intractable, without status migrainosus; M54.2 Cervicalgia; G89.4 Chronic pain syndrome; I25.10 Atherosclerotic heart disease of native coronary artery without angina pectoris; F32.89 Other specified depressive episodes; M1A.9XX0 Chronic gout, unspecified, without tophus (tophi); E78.5 Hyperlipidemia, unspecified; E11.22 Type 2 diabetes mellitus with diabetic chronic kidney disease; G47.00 Insomnia, unspecified; F11.29 Opioid dependence with unspecified opioid-induced disorder; M93.1 Kienbock's disease of adults; K21.9 Gastro-esophageal reflux disease without esophagitis; E87.6 Hypokalemia; Z79.82 Long term (current) use of aspirin; Z79.899 Other long term (current) drug therapy; Z86.73 Personal history of transient ischemic attack (TIA), and cerebral infarction without residual deficits; I25.2 Old myocardial infarction; Z78.9 Other specified health status; Z89.511 Acquired absence of right leg below knee; Z79.4 Long term (current) use of insulin; Z86.718 Personal history of other venous thrombosis and embolism; Z79.01 Long term (current) use of anticoagulants; Z86.16 Personal history of COVID-19; Z68.38 Body mass index [BMI] 38.0-38.9, adult
CPT/HCPCS: 36415; 36600; 71045; 80053; 82803; 83605; 83735; 83880; 84145; 84484; 85025; 85379; 85610; 85730; 86140; 86738; 87040 ×2; 93005; 94640; J0696; J2930; J3490; 82947; 83036; 87641; 87899; 93010; 94667; 94668; 94761; 97162-GP; 97166-GO; 97530-GO; 99285; A9270-GY; J0456; J1815; J1815-GY; J1940; J2185; J3475; J7030; J7050; J7120; J7620-GY; U0002

== ENCOUNTER 2022-03-11 10:09 | Inpatient (IN) | payer MEDICARE, MEDICAID ==
[2022-03-11] MEDS ORDERED: Acetaminophen 325 MG Tab PO ONE (10:24)
[2022-03-11] MEDS ORDERED: Sodium Chloride 0.9% 1,000 ML IV SCH ×2 (10:30→12:45)
[2022-03-11 11:49] LABS: HEMOGLOBIN A1C 8.2 %
[2022-03-11] MEDS ORDERED: cefTRIAXone 2 GM in Sodium Chloride 0.9% 100 ML IV ONE (12:45)
[2022-03-11] MEDS ORDERED: Piperacillin/Tazobactam 4.5 GM in Sodium Chloride 0.9% 100 ML IV ONE (12:52)
[2022-03-11] MEDS ORDERED: Temazepam 7.5 MG Cap PO PRN (13:57)
[2022-03-11] MEDS ORDERED: Docusate Sodium 100 MG Cap PO PRN (13:57)
[2022-03-11] MEDS ORDERED: HYDROmorphone 0.5 MG/0.5 ML Syringe IVPUSH PRN (13:57)
[2022-03-11] MEDS ORDERED: Ondansetron 4 MG/2 ML SDV IV PRN (13:57)
[2022-03-11] MEDS ORDERED: Acetaminophen/HYDROcodone 325-5 MG Tab PO PRN (13:57)
[2022-03-11] MEDS ORDERED: Heparin Sodium 5,000 Units/ML Vial SUBCUT SCH (14:00)
[2022-03-11 14:02] LABS: CORONAVIRUS COVID-19 NAA NEGATIVE (NEGATIVE)
[2022-03-11] MEDS ORDERED: Bisacodyl 10 MG Supp RECTAL PRN (14:06)
[2022-03-11] MEDS ORDERED: Cyclobenzaprine 10 MG Tab PO PRN (14:06)
[2022-03-11] MEDS ORDERED: Non-Formulary Medication 1 Each (Acetaminophen/Hydrocodone 1 EACH Tablet) PO PRN (14:06)
[2022-03-11] MEDS ORDERED: traMADol 50 MG Tab PO PRN (14:06)
[2022-03-11] MEDS ORDERED: Sennosides 8.6 MG Tab PO PRN (14:06)
[2022-03-11] MEDS ORDERED: Insulin Lispro 100 Unit/ML 3 ML KwikPen SUBCUT SCH (14:30)
[2022-03-11] MEDS: Cetirizine 10 MG Tab PO SCH (14:44)
[2022-03-11] MEDS: Gabapentin 300 MG Cap PO SCH ×2 (14:44→20:49)
[2022-03-11] MEDS: Aspirin 81 MG Tab.EC PO SCH (14:44)
[2022-03-11] MEDS ORDERED: Sodium Chloride 0.9% 500 ML IV SCH (14:45)
[2022-03-11] MEDS: Allopurinol 100 MG Tab PO SCH (14:45)
[2022-03-11] MEDS: Insulin Lispro 100 Unit/ML 3 ML KwikPen SUBCUT SCH ×2 (15:16→20:53)
[2022-03-11] MEDS: Albuterol/Ipratropium 3.0-0.5 MG/3 ML Neb Soln NEB SCH ×3 (15:39→21:30)
[2022-03-11] MEDS: Piperacillin/Tazobactam 4.5 GM in Sodium Chloride 0.9% 100 ML IV SCH (18:03)
[2022-03-11] MEDS: Rivaroxaban 10 MG Tab PO SCH (18:03)
[2022-03-11] MEDS ORDERED: LORazepam 2 MG/ML SDV IVPUSH PRN (20:20)
[2022-03-11] MEDS ORDERED: LORazepam 2 MG/ML SDV IVPUSH ONE (20:20)
[2022-03-11] MEDS: Tamsulosin 0.4 MG Cap.ER PO SCH (20:48)
[2022-03-11] MEDS: Melatonin 3 MG Tab PO SCH (20:48)
[2022-03-11] MEDS: Sertraline 25 MG Tab PO SCH (20:48)
[2022-03-11] MEDS: Sertraline 50 MG Tab PO SCH (20:48)
[2022-03-11] MEDS: traZODone 50 MG Tab PO SCH (20:49)
[2022-03-11] MEDS: Montelukast 10 MG Tab PO SCH (20:49)
[2022-03-11] MEDS: Insulin Glargine,Human Rec. Analog 100 Units/ML 3 ML Pen SUBCUT SCH (21:16)
[2022-03-11] MEDS: Mometasone Furoate HFA 200 mcg/Puff 13 GM Inhaler INH SCH (21:33)
[2022-03-12] MEDS: Albuterol/Ipratropium 3.0-0.5 MG/3 ML Neb Soln NEB SCH ×6 (02:05→21:32)
[2022-03-12] MEDS: Piperacillin/Tazobactam 4.5 GM in Sodium Chloride 0.9% 100 ML IV SCH ×3 (02:26→18:38)
[2022-03-12] MEDS: Insulin Lispro 100 Unit/ML 3 ML KwikPen SUBCUT SCH ×5 (02:44→20:16)
[2022-03-12] MEDS: Gabapentin 300 MG Cap PO SCH ×3 (08:40→20:13)
[2022-03-12] MEDS: Metoprolol Succinate 50 MG Tab.ER PO SCH (08:40)
[2022-03-12] MEDS: Cetirizine 10 MG Tab PO SCH (08:41)
[2022-03-12] MEDS: Pantoprazole 40 MG Tab.CR PO SCH (08:41)
[2022-03-12] MEDS: Allopurinol 100 MG Tab PO SCH (08:41)
[2022-03-12] MEDS: Colchicine 0.6 MG Tab PO SCH (08:41)
[2022-03-12] MEDS: OLANZapine 5 MG Tab PO SCH (08:41)
[2022-03-12] MEDS: Aspirin 81 MG Tab.EC PO SCH (08:41)
[2022-03-12] MEDS: Insulin Glargine,Human Rec. Analog 100 Units/ML 3 ML Pen SUBCUT SCH ×2 (08:44→20:18)
[2022-03-12] MEDS: Mometasone Furoate HFA 200 mcg/Puff 13 GM Inhaler INH SCH ×2 (09:11→21:32)
[2022-03-12] MEDS ORDERED: Sodium Chloride 0.9% 100 ML ONE (10:05)
[2022-03-12] MEDS: Rivaroxaban 10 MG Tab PO SCH (17:05)
[2022-03-12] MEDS: Sertraline 25 MG Tab PO SCH (20:12)
[2022-03-12] MEDS: Tamsulosin 0.4 MG Cap.ER PO SCH (20:12)
[2022-03-12] MEDS: Sertraline 50 MG Tab PO SCH (20:12)
[2022-03-12] MEDS: traZODone 50 MG Tab PO SCH (20:12)
[2022-03-12] MEDS: Melatonin 3 MG Tab PO SCH (20:13)
[2022-03-12] MEDS: Montelukast 10 MG Tab PO SCH (20:13)
[2022-03-13] MEDS: Albuterol/Ipratropium 3.0-0.5 MG/3 ML Neb Soln NEB SCH ×3 (02:05→09:15)
[2022-03-13] MEDS: Piperacillin/Tazobactam 4.5 GM in Sodium Chloride 0.9% 100 ML IV SCH ×2 (02:40→10:46)
[2022-03-13 06:05] VITALS: PULSE 59
[2022-03-13] MEDS: OLANZapine 5 MG Tab PO SCH (08:16)
[2022-03-13] MEDS: Cetirizine 10 MG Tab PO SCH (08:17)
[2022-03-13] MEDS: Metoprolol Succinate 50 MG Tab.ER PO SCH (08:17)
[2022-03-13] MEDS: Allopurinol 100 MG Tab PO SCH (08:17)
[2022-03-13] MEDS: Colchicine 0.6 MG Tab PO SCH (08:17)
[2022-03-13] MEDS: Aspirin 81 MG Tab.EC PO SCH (08:17)
[2022-03-13] MEDS: Pantoprazole 40 MG Tab.CR PO SCH (08:17)
[2022-03-13] MEDS: Insulin Lispro 100 Unit/ML 3 ML KwikPen SUBCUT SCH ×2 (08:22→11:16)
[2022-03-13] MEDS: Insulin Glargine,Human Rec. Analog 100 Units/ML 3 ML Pen SUBCUT SCH (08:23)
[2022-03-13] MEDS ORDERED: Gabapentin 600 MG Tab PO SCH (09:00)
[2022-03-13] MEDS: Mometasone Furoate HFA 200 mcg/Puff 13 GM Inhaler INH SCH (09:15)
[2022-03-13 11:24] VITALS: BP 146/78
== END 2022-03-13 13:09 | DRG 193 ==
LOC: JD.ED 10:09 → UNDOADMIN 12:55 → JD.ICU 12:55
PROVIDERS: ADMIT Hospitalist; ATTEND Hospitalist
PROC: 5A09357 Assistance with Respiratory Ventilation, Less than 24 Consecutive Hours, Continuous Positive Airway Pressure (ICD-10-PCS; principal; 2022-03-11)
DX: J18.9 Pneumonia, unspecified organism (principal); J96.02 Acute respiratory failure with hypercapnia; J96.01 Acute respiratory failure with hypoxia; J96.21 Acute and chronic respiratory failure with hypoxia; J96.22 Acute and chronic respiratory failure with hypercapnia; D72.829 Elevated white blood cell count, unspecified; I48.91 Unspecified atrial fibrillation; J44.0 Chronic obstructive pulmonary disease with (acute) lower respiratory infection; E78.00 Pure hypercholesterolemia, unspecified; I13.0 Hypertensive heart and chronic kidney disease with heart failure and stage 1 through stage 4 chronic kidney disease, or unspecified chronic kidney disease; Z95.5 Presence of coronary angioplasty implant and graft; Z68.41 Body mass index [BMI] 40.0-44.9, adult; Z66 Do not resuscitate; I48.0 Paroxysmal atrial fibrillation; E11.22 Type 2 diabetes mellitus with diabetic chronic kidney disease; N18.9 Chronic kidney disease, unspecified; N18.31 Chronic kidney disease, stage 3a; G47.30 Sleep apnea, unspecified; I50.9 Heart failure, unspecified; G47.33 Obstructive sleep apnea (adult) (pediatric); I25.10 Atherosclerotic heart disease of native coronary artery without angina pectoris; I73.9 Peripheral vascular disease, unspecified; Z79.82 Long term (current) use of aspirin; E11.51 Type 2 diabetes mellitus with diabetic peripheral angiopathy without gangrene; K59.09 Other constipation; K21.9 Gastro-esophageal reflux disease without esophagitis; M10.9 Gout, unspecified; N40.0 Benign prostatic hyperplasia without lower urinary tract symptoms; G40.909 Epilepsy, unspecified, not intractable, without status epilepticus; Z20.822 Contact with and (suspected) exposure to COVID-19; F32.A Depression, unspecified; F03.90 Unspecified dementia, unspecified severity, without behavioral disturbance, psychotic disturbance, mood disturbance, and anxiety; E03.9 Hypothyroidism, unspecified; E66.01 Morbid (severe) obesity due to excess calories; E83.42 Hypomagnesemia; Z79.890 Hormone replacement therapy; Z86.16 Personal history of COVID-19; Z98.1 Arthrodesis status; Z90.89 Acquired absence of other organs; Z98.890 Other specified postprocedural states; Z79.01 Long term (current) use of anticoagulants; Z79.4 Long term (current) use of insulin; I25.2 Old myocardial infarction; Z79.899 Other long term (current) drug therapy; Z86.718 Personal history of other venous thrombosis and embolism; Z89.511 Acquired absence of right leg below knee; Z86.73 Personal history of transient ischemic attack (TIA), and cerebral infarction without residual deficits
CPT/HCPCS: 0240U; 36415; 36600; 71045; 80048; 80053; 82140; 82803; 82947; 83036; 83605; 83735; 83880; 84443; 85025; 85610; 85652; 85730; 86140; 86738; 87040; 93005; 94640; 94660; 94667; 94668; 97162; 97166; A9270-GY; J1170; J1644; J1815; J1815-GY; J2060; J2543; J7030; J7620-GY; U0002